=== PATIENT | female | born 1965 | race Hispanic/Latino ===

== ENCOUNTER 2016-05-24 18:56 | Emergency (ER) | payer SELFPAY ==
--- NOTE | 2016-05-24 23:38 | Emergency Department Report ---
HPI - General Chief Complaint: Extremity Problem,Nontraumatic Time Seen by Provider: 05/24/16 23:22 - HPI HPI: Physical history of female with a past medical history of diabetes on insulin, hypertension on medication hypothyroidism on thyroxine who presents to ED complaining of left wrist pain 2 weeks. Patient states about 2 weeks ago she felt a pain on her raised and thought it was carpeted, so she started wearing a brace. Patient states brace did not help brace made the pain worse or she is to get off. Patient describes pain as sharp tingling in nature that sometimes radiate up the intermediate arm. Patient states pain with opposing thumb. Patient denies fevers/chills/nausea/vomiting/recent trauma or fall or injury to the wrist. Patient ED Past Medical Hx - Past Medical History Previous Medical History?: Yes Hx Hypertension: Yes Hx Diabetes: Yes Hx GERD: Yes Additional medical history: Hypothyroidism. Diabetic Neuropathy - Surgical History Past Surgical History?: Yes Hx Cholecystectomy: Yes (1999) Additional Surgical History: Hysterectomy, tubes tied, hernia surgeries x 3 - Social History Smoking Status: Current Every Day Smoker Substance Use Type: None - Medications Home Medications: Home Medications Medication Instructions Recorded Confirmed Last Taken Type Ibuprofen [Motrin] 800 mg PO Q8HR PRN #30 tablet 05/25/16 Unknown Rx methOCARBAMOL [Robaxin TAB] 500 mg PO BID #20 tab 05/25/16 Unknown Rx traMADol [Ultram 50 MG tab] 50 mg PO Q6HR PRN #20 tablet 05/25/16 Unknown Rx ED Review of Systems ROS: Stated complaint: LFT WRIST PAIN Other details as noted in HPI Constitutional: denies: chills, fever Eyes: denies: eye pain, eye discharge, vision change ENT: denies: ear pain, throat pain Respiratory: denies: cough, shortness of breath, wheezing Cardiovascular: denies: chest pain, palpitations Endocrine: no symptoms reported Gastrointestinal: denies: abdominal pain, nausea, vomiting, diarrhea Genitourinary: denies: urgency, dysuria, frequency, hematuria, discharge Musculoskeletal: arthralgia. denies: back pain, joint swelling Skin: denies: rash, lesions Neurological: denies: headache, weakness, numbness, paresthesias, confusion Psychiatric: denies: anxiety, depression Hematological/Lymphatic: denies: easy bleeding, easy bruising Physical Exam - Physical Exam Vital Signs: Vital Signs 05/24/16 19:28 Temperature 98.6 F Pulse Rate 101 H Respiratory 20 Rate Blood Pressure 137/86 O2 Sat by Pulse 95 Oximetry Physical Exam: GENERAL: Alert and oriented x3, no apparent distress, Normal Gait, atraumatic. HEAD: Head is normocephalic and a-traumatic. EYES: Extra ocular muscles are intact. Pupils are equal, round, and reactive to light and accommodation. NECK: Supple. Non edematous, No carotid bruits. No lymphadenopathy or thyromegaly. No C-spine tenderness LUNGS: Symetrical with respiration, No wheezing, no rales or crackles, CTAB. HEART: S1, S2 present, regular rate and rhythm without murmur, no rubs, no gallops. ABDOMEN: No organomegaly was noted,Positive bowel sounds, soft, and non- distended. . Nontender to palpation on all Quadrants, NO CVA tenderness. EXTREMITIES/MUSCULOSKELETAL: No cyanosis, clubbing, rash, lesions or edema. Full ROM bilaterally. UE/LE Pulses 2+ bilaterally. LE and UE 5+ strength bilaterally, straight leg raise negative bilaterally. Pain with palpation of wrist joint. Patient had some pain with thumb opposition. No erythema, no noticeable swelling. Patient unable to perform Phalen test NEUROLOGIC: No focal Deficit, Cranial nerves II through XII are grossly intact. No loss of sensation, PSYCHIATRIC: Mood is congruent with affect, denies suicidal or homicidal ideations. SKIN: Warm and dry, No lesions, No ulceration or induration present. ED Course Vital Signs 05/24/16 19:28 Temperature 98.6 F Pulse Rate 101 H Respiratory 20 Rate Blood Pressure 137/86 O2 Sat by Pulse 95 Oximetry ED Medical Decision Making - Medical Decision Making 50 year-old female presents with wrist pain ED course: Patient received 50 mg. Ultrasound ordered. Ultrasound shows no acute process. Discussed the patient to follow up with primary care physician and specialists. Discussed need for further workup neurologist. Discussed the patient did need for follow-up. Discussed the symptoms are seen follow-up with primary care physician Discussed if worsening symptoms to return to ED. Vital signs are normal patient is in no acute respiratory distress. - Differential Diagnosis 1. Diabetic neuropathy 2. Carpal tunnel 3. Critical care attestation.: If time is entered above; I have spent that time in minutes in the direct care of this critically ill patient, excluding procedure time. ED Disposition Clinical Impression: Arthralgia of wrist, left Wrist pain Qualifiers: Laterality: left Qualified Code(s): M25.532 - Pain in left wrist Disposition: DISCHARGED TO HOME OR SELFCARE Is pt being admited?: No Does the pt Need Aspirin: No Condition: Stable Instructions: Wrist Injury (ED), Arthralgia (ED) Prescriptions: Ibuprofen [Motrin] 800 mg PO Q8HR PRN #30 tablet PRN Reason: Pain methOCARBAMOL [Robaxin TAB] 500 mg PO BID #20 tab traMADol [Ultram 50 MG tab] 50 mg PO Q6HR PRN #20 tablet PRN Reason: Pain Referrals: PRIMARY CARE, [Primary Care Provider] - 3-5 Days SIRISHA PEREZ MD [Staff Physician] - 3-5 Days VANCE PEREZ MD [Referring] - 3-5 Days ROGER INGRAM MD [Staff Physician] - 3-5 Days Forms: Accompanied Note, Work/School Release Form(ED) Time of Disposition: 03:52
[2016-05-25] MEDS ORDERED: ULTRAM PO ONE (00:17)
--- NOTE | 2016-05-25 02:53 | Ultrasound Report ---
FINAL REPORT PROCEDURE: ULTRA LEFT UPPER EXTREMITY NONVASCULAR LIMITED TECHNIQUE: Real-time sonography in multiple planes of the soft tissues of the left wrist was performed with image documentation. CPT 66982 HISTORY: Left wrist joint swelling and pain. Prior history of soft tissue cyst removed from the left wrist. COMPARISON: No prior studies are available for comparison. FINDINGS: Ultrasound imaging was performed in the area of clinical interest. There is no ultrasound evidence of a distinctly identifiable focal cystic or solid or focal soft tissue lesion in this area. IMPRESSION: 1. There is no ultrasound evidence of a distinctly identifiable soft tissue lesion in the area of clinical interest in the left wrist. 2. However it should be noted that ultrasound has limited sensitivity in detecting some soft tissue abnormalities. Therefore if there is continued concern for a soft tissue abnormality in the left wrist or unexplained symptoms, a dedicated soft tissue imaging study such as MRI and or CT scan would be recommended only if indicated.
[2016-05-25 04:06] VITALS: BP 132/78
== END 2016-05-25 04:06 | disposition home or self-care (01) ==
LOC: ED 18:56
DX: M25.532 Pain in left wrist (principal); E11.9 Type 2 diabetes mellitus without complications; I10 Essential (primary) hypertension; K21.9 Gastro-esophageal reflux disease without esophagitis; E11.40 Type 2 diabetes mellitus with diabetic neuropathy, unspecified; F17.200 Nicotine dependence, unspecified, uncomplicated; E03.9 Hypothyroidism, unspecified

== ENCOUNTER 2017-03-07 15:42 | Emergency (ER) | payer SELFPAY | END 2017-03-07 16:30 | disposition left against medical advice (07) | LOC: ED 15:42 | DX: K05.10 Chronic gingivitis, plaque induced (principal); Z53.21 Procedure and treatment not carried out due to patient leaving prior to being seen by health care provider ==

== ENCOUNTER 2019-01-17 10:42 | Emergency (ER) | payer MEDICAID ==
[2019-01-17 12:06] LABS: Basophils # (Auto) 0.1 K/mm3 (0.0-0.1); Eosinophils # (Auto) 0.3 K/mm3 (0.0-0.4); Eosinophils % (Auto) 5.4 % (0.0-4.3); Hematocrit 42.3 % (30.3-42.9); Hemoglobin 14.5 gm/dl (10.1-14.3); Lymphocytes # (Auto) 2.1 K/mm3 (1.2-5.4); Lymphocytes % (Auto) 37.3 % (13.4-35.0); Mean Corpuscular HGB Conc 34 % (30-34); Mean Corpuscular Volume 95 fl (79-97); Monocytes # (Auto) 0.4 K/mm3 (0.0-0.8); Monocytes % (Auto) 7.4 % (0.0-7.3); Platelet Count 123 K/mm3 (140-440); Red Blood Count 4.46 M/mm3 (3.65-5.03); Red Cell Distribution Width 13.5 % (13.2-15.2)
--- NOTE | 2019-01-17 12:20 | Emergency Department Report ---
ED General Adult HPI - General Chief complaint: Abdominal Pain Stated complaint: HYPERGLYCEMIA Time Seen by Provider: 01/17/19 11:24 Source: patient Mode of arrival: Ambulatory Limitations: No Limitations - History of Present Illness Initial comments: 53-year-old female with history of hypertension, diabetes, hypothyroidism, bipolar disorder, depression presents to ED with complaint of elevated glucose, generalized weakness, multiple falls. Patient reports her glucose has been ranging from 300s and 500s over the last week. She reports nausea, no vomiting. Patient states she has been feeling dizzy and states her "legs have been giving out" for the last couple of weeks. Questionable LOC with these episodes. Patient reports feeling dehydrated, states mouth is dry. Patient is on multiple medications for her multiple medical problems, and she does not have a list of her current medications. States she does not take lithium. Patient does not have a PCP, but states she does see a psychiatrist. However, patient denies being prescribed any new medications or having any of her medication dosages changed. She reports mild headache, reports feeling dizzy and lightheaded. She denies any chest pain, shortness of breath. -: week(s) (2) Consistency: intermittent Improves with: none Worsens with: none Associated Symptoms: headaches, nausea/vomiting, syncope, weakness. denies: chest pain, fever/chills, shortness of breath - Related Data Previous Rx's Medication Instructions Recorded Last Taken Type Ibuprofen [Motrin] 800 mg PO Q8HR PRN #30 tablet 05/25/16 Unknown Rx methOCARBAMOL [Robaxin TAB] 500 mg PO BID #20 tab 05/25/16 Unknown Rx traMADoL [Ultram 50 MG tab] 50 mg PO Q6HR PRN #20 tablet 05/25/16 Unknown Rx Allergies Allergy/AdvReac Type Severity Reaction Status Date / Time No Known Allergies Allergy Verified 11/01/15 23:55 ED Review of Systems ROS: Stated complaint: HYPERGLYCEMIA Other details as noted in HPI Comment: All other systems reviewed and negative Constitutional: weakness (generalized). denies: chills, fever Respiratory: denies: cough, shortness of breath Cardiovascular: syncope (questionable). denies: chest pain Endocrine: increased thirst Gastrointestinal: abdominal pain, nausea. denies: vomiting, diarrhea Genitourinary: frequency Neurological: headache, vertigo. denies: numbness, paresthesias ED Past Medical Hx - Past Medical History Previous Medical History?: Yes Hx Hypertension: Yes Hx Diabetes: Yes Hx GERD: Yes Hx Psychiatric Treatment: Yes (depression, bipolar) Additional medical history: Hypothyroidism. Diabetic Neuropathy - Surgical History Past Surgical History?: Yes Hx Cholecystectomy: Yes (1999) Additional Surgical History: Hysterectomy, tubes tied, hernia surgeries x 3 - Social History Smoking Status: Current Every Day Smoker Substance Use Type: None - Medications Home Medications: Home Medications Medication Instructions Recorded Confirmed Last Taken Type Ibuprofen [Motrin] 800 mg PO Q8HR PRN #30 tablet 05/25/16 Unknown Rx methOCARBAMOL [Robaxin TAB] 500 mg PO BID #20 tab 05/25/16 Unknown Rx traMADoL [Ultram 50 MG tab] 50 mg PO Q6HR PRN #20 tablet 05/25/16 Unknown Rx ED Physical Exam - General Limitations: No Limitations General appearance: alert, in no apparent distress - Head Head exam: Present: atraumatic, normocephalic - Eye Eye exam: Present: normal appearance, EOMI - ENT ENT exam: Present: mucous membranes dry - Neck Neck exam: Present: normal inspection - Respiratory Respiratory exam: Present: normal lung sounds bilaterally. Absent: respiratory distress - Cardiovascular Cardiovascular Exam: Present: regular rate, normal rhythm - GI/Abdominal GI/Abdominal exam: Present: soft. Absent: distended, tenderness - Extremities Exam Extremities exam: Present: normal inspection - Neurological Exam Neurological exam: Present: alert, oriented X3, CN II-XII intact, motor sensory deficit (4/5 strength BLE), other ([id number] testing normal) - Psychiatric Psychiatric exam: Present: normal affect, normal mood - Skin Skin exam: Present: warm, dry, intact, normal color ED Course Vital Signs 01/17/19 01/17/19 01/17/19 10:50 12:58 14:27 Temperature 97.4 F L 98.0 F Pulse Rate 87 88 Respiratory 18 18 16 Rate Blood Pressure 142/82 Blood Pressure 140/84 [Left] O2 Sat by Pulse 95 97 Oximetry ED Medical Decision Making - Lab Data Result diagrams: 01/17/19 11:49 01/17/19 11:49 - EKG Data -: EKG Interpreted by [place] EKG shows normal: sinus rhythm, axis, intervals, QRS complexes, ST-T waves Rate: normal - EKG Data Interpretation: no acute changes, nonspecific ST-T wave deyvi, other (LAD) - Radiology Data Radiology results: report reviewed, image reviewed - Medical Decision Making - vitals normal, patient is not orthostatic - glucose slightly elevated, not in DKA, renal function is normal - clinically, pt appears dehydrated, oral mucosa is dry, IV fluids given - CT Head done to rule out any intracranial etiolgy of pt's falls or any intracranial injury due to her multiple falls; CT Head is negative; it is unclear what is causing the patient's dizziness - UA shows 1+ bacteria, pt reports she is currently taking an antibiotic for it after being seen at [facility] recently and was diagnosed with UTI - Patient does not require admission at this time; outpatient follow-up advised; return precautions given - Differential Diagnosis intracranial injury, DKA, infection, dehydration Critical care attestation.: If time is entered above; I have spent that time in minutes in the direct care of this critically ill patient, excluding procedure time. ED Disposition Clinical Impression: Dehydration, Multiple falls, Hyperglycemia Disposition: - TO HOME OR SELFCARE Is pt being admited?: No Condition: Stable Instructions: Weakness (ED), Diabetic Hyperglycemia (ED) Referrals: PRIMARY CAREMD [Primary Care Provider] - 3-5 Days MELITON BOOTH MD [Staff Physician] - 3-5 Days ANGELITA ALFORD MD [Staff Physician] - 3-5 Days [facility] [Provider Group] - 3-5 Days Time of Disposition: 14:15
[2019-01-17 12:31] LABS: BUN/Creatinine Ratio 32; Blood Urea Nitrogen 16 mg/dL (7-17); Calcium 9.1 mg/dL (8.4-10.2); Hemolysis Index 19
[2019-01-17] MEDS ORDERED: SODIUM CHLORIDE 0.9% 1000 ML 1,000 ML IV ONE (12:32)
--- NOTE | 2019-01-17 12:57 | Cat Scan Report ---
CT head/brain wo con INDICATION / CLINICAL INFORMATION: 53 years Female; dizziness, mult falls. TECHNIQUE: Routine CT head without contrast. All CT scans at this location are performed using CT dos e reduction for ALARA by means of automated exposure control. COMPARISON: None. FINDINGS: BRAIN / INTRACRANIAL CONTENTS: Small lacunar infarct is seen near the head of the left caudate-this a ppears to be chronic in age. No acute hemorrhage, mass effect, midline shift, hydrocephalus, or acute , large territorial infarct. No chronic infarct or atrophy appreciated. No significant white matter a bnormality. CRANIOCERVICAL JUNCTION: No significant abnormality. ORBITS: No significant abnormality of visualized orbits. SINUSES / MASTOIDS: Mucous retention cyst/polyp seen in the right maxillary antrum. ADDITIONAL FINDINGS: Mild temporomandibular joint disease suggested on the left. Atherosclerotic disease is seen in the anterior and posterior circulation. IMPRESSION: 1. No focal mass, hemorrhage, hydrocephalus, or acute, large territorial infarct. Signer Name: Geroge Dick MD, III Signed: 01/17/2019 12:52 PM Workstation Name: [id number]
[2019-01-17 14:01] LABS: Bacteria,Urine 1+ /HPF (Negative); Bilirubin,Urine NEG (Negative); Blood,Urine NEG (Negative); Color,Urine Yellow (Yellow); Mucus,Urine FEW /HPF; Urobilinogen,Urine < 2.0 mg/dL (<2.0)
[2019-01-17 14:28] VITALS: BP 140/84
== END 2019-01-17 14:28 | disposition home or self-care (01) ==
LOC: ED 10:42
DX: E86.0 Dehydration (principal); R29.6 Repeated falls; I10 Essential (primary) hypertension; E11.65 Type 2 diabetes mellitus with hyperglycemia; K21.9 Gastro-esophageal reflux disease without esophagitis; F31.9 Bipolar disorder, unspecified; F17.200 Nicotine dependence, unspecified, uncomplicated; Z98.890 Other specified postprocedural states; Z79.1 Long term (current) use of non-steroidal anti-inflammatories (NSAID); Z79.899 Other long term (current) drug therapy
CPT/HCPCS: 36415; 70450; 80048; 81001; 82962; 85025; 93005; 93010; 96360; 99284; J7030

== ENCOUNTER 2020-04-20 14:39 | Emergency (ER) | payer MEDICAID, MEDICARE ==
--- NOTE | 2020-04-20 15:39 | Emergency Department Report ---
HPI - HPI HPI: This is a 54-year-old female who presents to the emergency department with complaint of a suicide attempt by cutting her left wrist that occurred late last night/early this morning. The patient does present with a moderate sized superficial laceration and 3 abrasions to the volar left wrist. The patient does admit to depression and recurrent suicidal ideations. She went over to [place] and attempt to get admitted there as the patient says that she has been to [facility] multiple times in the past, however she was told that there were no beds available. She also has a past medical history of insulin- dependent diabetes, GERD, hypertension, hypothyroidism. The patient has a history of depression and bipolar disorder for which she takes multiple medications but cannot currently remember the name. She denies any alcohol or illicit drug use. <BELTRAN WHITE - Last Filed: 04/20/20 19:33> <MICHAEL MAYA - Last Filed: 04/20/20 22:47> - General Chief Complaint: Psych Time Seen by Provider: 04/20/20 15:27 ED Past Medical Hx - Past Medical History Previous Medical History?: Yes Hx Hypertension: Yes Hx Diabetes: Yes Hx GERD: Yes Hx Psychiatric Treatment: Yes (depression, bipolar) Additional medical history: Hypothyroidism. Diabetic Neuropathy - Surgical History Past Surgical History?: Yes Hx Cholecystectomy: Yes (1999) Additional Surgical History: Hysterectomy, tubes tied, hernia surgeries x 3 - Social History Smoking Status: Current Every Day Smoker Substance Use Type: None <BELTRAN WHITE - Last Filed: 04/20/20 19:33> <MICHAEL MAYA - Last Filed: 04/20/20 22:47> - Medications Home Medications: Home Medications Medication Instructions Recorded Confirmed Last Taken Type Ibuprofen [Motrin] 800 mg PO Q8HR PRN #30 tablet 05/25/16 Unknown Rx methOCARBAMOL [Robaxin TAB] 500 mg PO BID #20 tab 05/25/16 Unknown Rx traMADoL [Ultram 50 MG tab] 50 mg PO Q6HR PRN #20 tablet 05/25/16 Unknown Rx ED Review of Systems ROS: Stated complaint: LEFT WRIST LACERATION Other details as noted in HPI Comment: All other systems reviewed and negative Constitutional: denies: chills, fever Eyes: denies: eye pain, vision change ENT: denies: ear pain, throat pain Respiratory: denies: cough, shortness of breath Cardiovascular: denies: chest pain, palpitations Gastrointestinal: denies: abdominal pain, vomiting Genitourinary: denies: dysuria, discharge Musculoskeletal: denies: back pain, arthralgia Skin: other (left wrist laceration / abrasion). denies: rash Neurological: denies: numbness, paresthesias Psychiatric: depression, suicidal thoughts. denies: homicidal thoughts <BELTRAN WHITE - Last Filed: 04/20/20 19:33> ROS: Stated complaint: LEFT WRIST LACERATION Other details as noted in HPI <MICHAEL MAYA - Last Filed: 04/20/20 22:47> Physical Exam - Physical Exam Vital Signs: Vital Signs 04/20/20 15:09 Temperature 98.3 F Pulse Rate 110 H Respiratory 16 Rate Blood Pressure 135/69 O2 Sat by Pulse 97 Oximetry Physical Exam: GENERAL: The patient is well-developed well-nourished. HENT: Normocephalic. Atraumatic. Patient has moist mucous membranes. EYES: Extraocular motions are intact. NECK: Supple. Trachea is midline. CHEST/LUNGS: Clear to auscultation. There is no respiratory distress noted. HEART/CARDIOVASCULAR: Regular. There is no tachycardia. There is no murmur. ABDOMEN: Abdomen is soft, nontender. Patient has normal bowel sounds. SKIN: Skin is warm and dry. There is a superficial laceration, that seems more like a skin avulsion, to the volar left wrist. There are also small abrasions proximal to this. NEURO: The patient is awake, alert, and oriented. The patient is cooperative. The patient has no focal neurologic deficits. Normal speech. MUSCULOSKELETAL: There is no tenderness or deformity. There is no limitation range of motion. <BELTRAN WHITE - Last Filed: 04/20/20 19:33> - Physical Exam Vital Signs: Vital Signs 04/20/20 04/20/20 04/20/20 15:09 16:16 20:49 Temperature 98.3 F 97.9 F Pulse Rate 110 H 77 Respiratory 16 18 16 Rate Blood Pressure 135/69 Blood Pressure 131/49 [Right] O2 Sat by Pulse 97 99 99 Oximetry <MICHAEL MAYA - Last Filed: 04/20/20 22:47> ED Course Vital Signs 04/20/20 15:09 Temperature 98.3 F Pulse Rate 110 H Respiratory 16 Rate Blood Pressure 135/69 O2 Sat by Pulse 97 Oximetry <BELTRAN WHITE - Last Filed: 04/20/20 19:33> Vital Signs 04/20/20 04/20/20 04/20/20 15:09 16:16 20:49 Temperature 98.3 F 97.9 F Pulse Rate 110 H 77 Respiratory 16 18 16 Rate Blood Pressure 135/69 Blood Pressure 131/49 [Right] O2 Sat by Pulse 97 99 99 Oximetry <MICHAEL MAYA - Last Filed: 04/20/20 22:47> ED Medical Decision Making - Lab Data Result diagrams: 04/20/20 15:35 04/20/20 15:35 Lab Results 04/20/20 04/20/20 04/20/20 Range/Units 15:35 15:35 15:35 WBC (4.5-11.0) K/mm3 RBC (3.65-5.03) M/mm3 Hgb (10.1-14.3) gm/dl Hct (30.3-42.9) % MCV (79-97) fl MCH (28-32) pg MCHC (30-34) % RDW (13.2-15.2) % Plt Count (140-440) K/mm3 Lymph % (Auto) (13.4-35.0) % Towns % (Auto) (0.0-7.3) % Eos % (Auto) (0.0-4.3) % Baso % (Auto) (0.0-1.8) % Lymph # (Auto) (1.2-5.4) K/mm3 Towns # (Auto) (0.0-0.8) K/mm3 Eos # (Auto) (0.0-0.4) K/mm3 Baso # (Auto) (0.0-0.1) K/mm3 Seg Neutrophils % (40.0-70.0) % Seg Neutrophils # (1.8-7.7) K/mm3 Sodium 133 L (137-145) mmol/L Potassium 4.2 (3.6-5.0) mmol/L Chloride 94.7 L (98-107) mmol/L Carbon Dioxide 24 (22-30) mmol/L Anion Gap 19 mmol/L BUN 19 H (7-17) mg/dL Creatinine 0.7 (0.6-1.2) mg/dL Estimated GFR > 60 ml/min BUN/Creatinine Ratio 27 % Glucose 550 H* (65-100) mg/dL Calcium 9.3 (8.4-10.2) mg/dL Urine Color (Yellow) Urine Turbidity (Clear) Urine pH (5.0-7.0) Ur Specific [place] (1.003-1.030) Urine Protein (Negative) mg/dL Urine Glucose (UA) (Negative) mg/dL Urine Ketones (Negative) mg/dL Urine Blood (Negative) Urine Nitrite (Negative) Urine Bilirubin (Negative) Urine Urobilinogen (<2.0) mg/dL Ur Leukocyte Esterase (Negative) Urine WBC (Auto) (0.0-6.0) /HPF Urine RBC (Auto) (0.0-6.0) /HPF U Epithel Cells (Auto) (0-13.0) /HPF Salicylates < 0.3 L (2.8-20.0) mg/dL Urine Opiates Screen Urine Methadone Screen Acetaminophen 5.0 L (10.0-30.0) ug/mL Ur Barbiturates Screen Ur Phencyclidine Scrn Ur Amphetamines Screen U Benzodiazepines Scrn Urine Cocaine Screen U Marijuana (THC) Screen Drugs of Abuse Note Plasma/Serum Alcohol (0-0.07) % 04/20/20 04/20/20 04/20/20 Range/Units 15:35 15:35 16:12 WBC 9.9 (4.5-11.0) K/mm3 RBC 5.09 H (3.65-5.03) M/mm3 Hgb 16.0 H (10.1-14.3) gm/dl Hct 45.9 H (30.3-42.9) % MCV 90 (79-97) fl MCH 31 (28-32) pg MCHC 35 H (30-34) % RDW 15.7 H (13.2-15.2) % Plt Count 228 (140-440) K/mm3 Lymph % (Auto) 28.3 (13.4-35.0) % Towns % (Auto) 5.8 (0.0-7.3) % Eos % (Auto) 8.8 H (0.0-4.3) % Baso % (Auto) 1.7 (0.0-1.8) % Lymph # (Auto) 2.8 (1.2-5.4) K/mm3 Towns # (Auto) 0.6 (0.0-0.8) K/mm3 Eos # (Auto) 0.9 H (0.0-0.4) K/mm3 Baso # (Auto) 0.2 H (0.0-0.1) K/mm3 Seg Neutrophils % 55.4 (40.0-70.0) % Seg Neutrophils # 5.5 (1.8-7.7) K/mm3 Sodium (137-145) mmol/L Potassium (3.6-5.0) mmol/L Chloride (98-107) mmol/L Carbon Dioxide (22-30) mmol/L Anion Gap mmol/L BUN (7-17) mg/dL Creatinine (0.6-1.2) mg/dL Estimated GFR ml/min BUN/Creatinine Ratio % Glucose (65-100) mg/dL Calcium (8.4-10.2) mg/dL Urine Color Yellow (Yellow) Urine Turbidity Clear (Clear) Urine pH 5.0 (5.0-7.0) Ur Specific [place] 1.030 (1.003-1.030) Urine Protein <15 mg/dl (Negative) mg/dL Urine Glucose (UA) >=500 (Negative) mg/dL Urine Ketones 20 (Negative) mg/dL Urine Blood Neg (Negative) Urine Nitrite Neg (Negative) Urine Bilirubin Neg (Negative) Urine Urobilinogen < 2.0 (<2.0) mg/dL Ur Leukocyte Esterase Neg (Negative) Urine WBC (Auto) < 1.0 (0.0-6.0) /HPF Urine RBC (Auto) 2.0 (0.0-6.0) /HPF U Epithel Cells (Auto) < 1.0 (0-13.0) /HPF Salicylates (2.8-20.0) mg/dL Urine Opiates Screen Urine Methadone Screen Acetaminophen (10.0-30.0) ug/mL Ur Barbiturates Screen Ur Phencyclidine Scrn Ur Amphetamines Screen U Benzodiazepines Scrn Urine Cocaine Screen U Marijuana (THC) Screen Drugs of Abuse Note Plasma/Serum Alcohol < 0.01 (0-0.07) % 04/20/20 Range/Units 16:12 WBC (4.5-11.0) K/mm3 RBC (3.65-5.03) M/mm3 Hgb (10.1-14.3) gm/dl Hct (30.3-42.9) % MCV (79-97) fl MCH (28-32) pg MCHC (30-34) % RDW (13.2-15.2) % Plt Count (140-440) K/mm3 Lymph % (Auto) (13.4-35.0) % Towns % (Auto) (0.0-7.3) % Eos % (Auto) (0.0-4.3) % Baso % (Auto) (0.0-1.8) % Lymph # (Auto) (1.2-5.4) K/mm3 Towns # (Auto) (0.0-0.8) K/mm3 Eos # (Auto) (0.0-0.4) K/mm3 Baso # (Auto) (0.0-0.1) K/mm3 Seg Neutrophils % (40.0-70.0) % Seg Neutrophils # (1.8-7.7) K/mm3 Sodium (137-145) mmol/L Potassium (3.6-5.0) mmol/L Chloride (98-107) mmol/L Carbon Dioxide (22-30) mmol/L Anion Gap mmol/L BUN (7-17) mg/dL Creatinine (0.6-1.2) mg/dL Estimated GFR ml/min BUN/Creatinine Ratio % Glucose (65-100) mg/dL Calcium (8.4-10.2) mg/dL Urine Color (Yellow) Urine Turbidity (Clear) Urine pH (5.0-7.0) Ur Specific [place] (1.003-1.030) Urine Protein (Negative) mg/dL Urine Glucose (UA) (Negative) mg/dL Urine Ketones (Negative) mg/dL Urine Blood (Negative) Urine Nitrite (Negative) Urine Bilirubin (Negative) Urine Urobilinogen (<2.0) mg/dL Ur Leukocyte Esterase (Negative) Urine WBC (Auto) (0.0-6.0) /HPF Urine RBC (Auto) (0.0-6.0) /HPF U Epithel Cells (Auto) (0-13.0) /HPF Salicylates (2.8-20.0) mg/dL Urine Opiates Screen Negative Urine Methadone Screen Negative Acetaminophen (10.0-30.0) ug/mL Ur Barbiturates Screen Negative Ur Phencyclidine Scrn Negative Ur Amphetamines Screen Negative U Benzodiazepines Scrn Negative Urine Cocaine Screen Negative U Marijuana (THC) Screen Negative Drugs of Abuse Note Disclamer Plasma/Serum Alcohol (0-0.07) % - Medical Decision Making This patient presents to the emergency department with suicidal ideations and an attempt in which she cut her left wrist. She has a superficial laceration and multiple small abrasions. Nothing that needs sutures. She has been made a 1013 and ED hold. The patient's labs have been mostly unremarkable except for hyperglycemia with a blood sugar of about 550. There is no significant elevation in her anion gap and therefore she does not appear to be in diabetic ketoacidosis. An IV has been placed and the patient has received IV fluid resuscitation and IV insulin. 1 hour later the blood sugar was down to about 340 on Accu-Chek. She has been given another bolus of IV fluids and another round of IV insulin. Her vital signs have been reassuring throughout her ED course thus far including being afebrile. After the second bolus of IV fluid and dose of insulin, I suspect the patient's blood sugar will be down in the 200s. At this point I would consider the patient to be medically cleared for psychiatric placement. <BELTRAN WHITE - Last Filed: 04/20/20 19:33> - Lab Data Result diagrams: 04/20/20 15:35 04/20/20 15:35 - Medical Decision Making I was asked by treatment nurse to manage hyperglycemia. Patient has been accepted to psychiatric facility in [facility]. I have ordered additional IV fluid as well as third insulin bolus. I also have ordered scheduled Accu- Cheks. I have ordered carbohydrate controlled diet. Patient will be transferred in the morning once blood glucose is less than 250. <MICHAEL MAYA - Last Filed: 04/20/20 22:47> Critical Care Time: No Critical care attestation.: If time is entered above; I have spent that time in minutes in the direct care of this critically ill patient, excluding procedure time. <BELTRAN WHITE - Last Filed: 04/20/20 19:33> Critical care attestation.: If time is entered above; I have spent that time in minutes in the direct care of this critically ill patient, excluding procedure time. <MICHAEL MAYA - Last Filed: 04/20/20 22:47> ED Disposition Is pt being admited?: No Time of Disposition: 19:37 <BELTRAN WHITE - Last Filed: 04/20/20 19:33> Is pt being admited?: No Does the pt Need Aspirin: No <MICHAEL MAYA - Last Filed: 04/20/20 22:47> Clinical Impression: Suicide attempt, Self-inflicted laceration of left wrist, Hyperglycemia Disposition: DC/TX-65 PSY HOSP/PSY UNIT Condition: Stable Referrals: HARSHA SANCHEZ [Primary Care Provider] - 3-5 Days
[2020-04-20 15:50] LABS: Basophils # (Auto) 0.2 K/mm3 (0.0-0.1); Basophils % (Auto) 1.7 % (0.0-1.8); Eosinophils # (Auto) 0.9 K/mm3 (0.0-0.4); Eosinophils % (Auto) 8.8 % (0.0-4.3); Hematocrit 45.9 % (30.3-42.9); Lymphocytes # (Auto) 2.8 K/mm3 (1.2-5.4); Lymphocytes % (Auto) 28.3 % (13.4-35.0); Mean Corpuscular HGB Conc 35 % (30-34); Mean Corpuscular Volume 90 fl (79-97); Monocytes # (Auto) 0.6 K/mm3 (0.0-0.8); Monocytes % (Auto) 5.8 % (0.0-7.3); Platelet Count 228 K/mm3 (140-440); Red Blood Count 5.09 M/mm3 (3.65-5.03); Red Cell Distribution Width 15.7 % (13.2-15.2)
[2020-04-20 16:06] LABS: Blood Urea Nitrogen 19 mg/dL (7-17); Calcium 9.3 mg/dL (8.4-10.2); Hemolysis Index 15
[2020-04-20 16:07] LABS: BUN/Creatinine Ratio 27
[2020-04-20] MEDS ORDERED: SODIUM CHLORIDE 0.9% 1000 ML 1,000 ML IV ONE ×2 (16:12→22:03)
[2020-04-20] MEDS ORDERED: INSULIN REGULAR, HUMAN 100 UNITS/1 ML IV ONE ×3 (16:12→22:03)
[2020-04-20 16:36] LABS: Bilirubin,Urine NEG (Negative); Blood,Urine NEG (Negative); Color,Urine Yellow (Yellow); Protein,Urine <15 mg/dL mg/dL (Negative); Urobilinogen,Urine < 2.0 mg/dL (<2.0); WBC,Urine < 1.0 /HPF (0.0-6.0)
[2020-04-20 16:43] LABS: Amphetamine Screen,Urine Negative; Benzodiazepines Screen,Urine Negative; Cannabinoid Screen,Urine Negative; Cocaine Screen,Urine Negative; Methadone Screen,Urine Negative; Opiate Screen,Urine Negative
[2020-04-20] MEDS: SODIUM CHLORIDE 0.9% 500 ML 500 ML IV ONE ×2 (19:37→20:27)
[2020-04-20] MEDS ORDERED: DEXTROSE 50% IN WATER (25GM) 50 ML SYRINGE IV PRN (22:51)
[2020-04-21] MEDS: metFORMIN 500 MG TAB PO SCH ×2 (08:19→09:42)
[2020-04-21] MEDS: INSULIN NPH/REGULAR 70/30 INJ SUB-Q SCH ×2 (08:19→17:26)
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
[2020-04-21 10:34] VITALS: BP 131/71
[2020-04-21] MEDS ORDERED: SODIUM CHLORIDE 0.9% 1000 ML 1,000 ML IV ONE (15:17)
--- NOTE | 2020-04-21 17:41 | Emergency Department Report ---
ED General Adult HPI - General Chief complaint: Psych Stated complaint: LEFT WRIST LACERATION Time Seen by Provider: 04/20/20 15:27 Source: patient Mode of arrival: Ambulatory Limitations: No Limitations - History of Present Illness Initial comments: Patient currently on floor 5 as ER patient being evaluated by psychiatry waiting for psychiatry clearance. Psychiatric screener Dr. Little contact ER, case discussed at length, states patient is cleared from psychiatry to go home after discussion with Dr. Gonzalez who agrees with disposition. States patient is not at risk to herself, states patient is unequivocally not suicidal. Patient evaluated by me on fifth floor, denies suicidality, states she gave herself superficial wound to her wrist after an argument with her son secondary to frustration without intention of killing herself nor with the intent of causing significant self-harm. Patient states her parents live at home with her and she has sufficient support group as well as outpatient psychiatric follow-up. Patient repeatedly denies suicidal or homicidal thoughts. Severity scale (0 -10): 0 - Related Data Previous Rx's Medication Instructions Recorded Last Taken Type Ibuprofen [Motrin] 800 mg PO Q8HR PRN #30 tablet 05/25/16 Unknown Rx methOCARBAMOL [Robaxin TAB] 500 mg PO BID #20 tab 05/25/16 Unknown Rx traMADoL [Ultram 50 MG tab] 50 mg PO Q6HR PRN #20 tablet 05/25/16 Unknown Rx Allergies Allergy/AdvReac Type Severity Reaction Status Date / Time No Known Allergies Allergy Verified 11/01/15 23:55 ED Review of Systems ROS: Stated complaint: LEFT WRIST LACERATION Other details as noted in HPI Constitutional: denies: chills, fever Eyes: denies: eye pain, vision change ENT: denies: ear pain, throat pain Respiratory: denies: cough, shortness of breath Cardiovascular: denies: chest pain, palpitations Gastrointestinal: denies: abdominal pain, vomiting Genitourinary: denies: dysuria, discharge Musculoskeletal: denies: back pain, arthralgia Skin: other (left wrist laceration / abrasion). denies: rash Neurological: denies: numbness, paresthesias Psychiatric: depression, suicidal thoughts. denies: homicidal thoughts ED Past Medical Hx - Past Medical History Previous Medical History?: Yes Hx Hypertension: Yes Hx Diabetes: Yes Hx GERD: Yes Hx Psychiatric Treatment: Yes (depression, bipolar) Additional medical history: Hypothyroidism. Diabetic Neuropathy - Surgical History Past Surgical History?: Yes Hx Cholecystectomy: Yes (1999) Additional Surgical History: Hysterectomy, tubes tied, hernia surgeries x 3 - Social History Smoking Status: Current Every Day Smoker Substance Use Type: None - Medications Home Medications: Home Medications Medication Instructions Recorded Confirmed Last Taken Type Ibuprofen [Motrin] 800 mg PO Q8HR PRN #30 tablet 05/25/16 Unknown Rx methOCARBAMOL [Robaxin TAB] 500 mg PO BID #20 tab 05/25/16 Unknown Rx traMADoL [Ultram 50 MG tab] 50 mg PO Q6HR PRN #20 tablet 05/25/16 Unknown Rx ED Physical Exam - General Limitations: No Limitations ED Course Vital Signs 04/20/20 04/20/20 04/20/20 15:09 16:16 20:49 Temperature 98.3 F 97.9 F Pulse Rate 110 H 77 Respiratory 16 18 16 Rate Blood Pressure 135/69 Blood Pressure 131/49 [Right] O2 Sat by Pulse 97 99 99 Oximetry 04/21/20 04/21/20 02:34 10:32 Temperature 98.0 F 97.4 F L Pulse Rate 79 94 H Respiratory 18 17 Rate Blood Pressure Blood Pressure 131/54 131/71 [Right] O2 Sat by Pulse 96 99 Oximetry - Reevaluation(s) Reevaluation #1: 04/21/20 17:40 Patient is hyperglycemic on initial evaluation, given IV normal saline 1 L x 1 with repeat blood glucose under 300. Patient states she has prescriptions for all hypoglycemic medications at home, denies offered refill. ED Medical Decision Making - Lab Data Result diagrams: 04/20/20 15:35 04/20/20 15:35 Critical care attestation.: If time is entered above; I have spent that time in minutes in the direct care of this critically ill patient, excluding procedure time. ED Disposition Clinical Impression: Depressive disorder Disposition: DC-01 TO HOME OR SELFCARE Is pt being admited?: No Condition: Stable Additional Instructions: Professional and Agency Contacts To help [facility](06/09) [place] Crisis Line: Suicide Prevention Line: Crisis Text Line: Text START to 930302 Emergency: 911 Outpatient COMMUNITY Behavioral Health Resources: ASTRIDB: [facility] [address] [place] [address] ANTONY: [facility] - [facility] [address] [place] [address] KAYLA: [facility] - [address] [place] [address] Tuesday thru Tuesday - 8am - 5pm VINOD: [facility] Address: [address], [place] [address] LUJAN: [facility] Address: [address] [place] [address] Tuesday thru Tuesday- 7am-2pm [facility] Address: [address] [place] [address] Tuesday thru Tuesday: 8:30AM-5PM Referrals: HARSHA SANCHEZ [Primary Care Provider] - 3-5 Days
== END 2020-04-21 17:34 | disposition home or self-care (01) ==
LOC: ED 14:39
DX: F32.9 Major depressive disorder, single episode, unspecified (principal); I10 Essential (primary) hypertension; E11.9 Type 2 diabetes mellitus without complications; K21.9 Gastro-esophageal reflux disease without esophagitis; F17.200 Nicotine dependence, unspecified, uncomplicated; Z90.49 Acquired absence of other specified parts of digestive tract; Z90.710 Acquired absence of both cervix and uterus; Z98.890 Other specified postprocedural states; Z79.1 Long term (current) use of non-steroidal anti-inflammatories (NSAID); Z79.899 Other long term (current) drug therapy
CPT/HCPCS: 36415; 80048; 80307; 81001; 82962; 85025; 96361; 96374; 96376; 99285; J7030; J7040; 80320; G0480; J1815

== ENCOUNTER 2020-08-26 17:57 | Emergency (ER) | payer MEDICARE ==
[2020-08-26 19:20] VITALS: BP 115/59
--- NOTE | 2020-08-26 19:29 | Emergency Department Report ---
Chief Complaint: Upper Respiratory Infection Stated Complaint: EXPOSED TO COVID Time Seen by Provider: 08/26/20 19:21 - HPI History of Present Illness: Patient is a 54-year-old female presents emergency room with complaints of exposure to COVID-19. She states her son tested positive for COVID-19 today. She states that she has had an occasional mild dry cough and some fatigue. She denies any fever, shortness of breath, chest pain, abdominal pain, nausea, vomiting, diarrhea. PMHx GERD, DM, HTN, depression, bipolar, hypothyroid. No allergies to medications. She is a smoker. Vitals are normal on exam: Non toxic appearing, no acute distress atraumatic, normocephalic normal appearance of the eyes, PERRL, EOMI, no periorbital edema or ecchymosis moist mucus membranes regular heart rate and rhythm, no gallops, no rubs, no murmurs breath sounds are clear bilaterally, no w/r/r, no respiratory distress, no accessory muscle use, no stridor A&O x4, no focal neuro deficit skin is warm, dry, intact Patient is presenting due to exposure to COVID-19 she is experiencing mild symptoms at this time such as dry cough and fatigue no SOB, no fever, no CP, no n/v/d vitals are normal, no hypoxia advised pt Please increase your fluid intake over the next several days. May take Tylenol as needed for fever or body aches. May take ktjt-[id number] cold symptom relief medication such as Mucinex or TheraFlu. Follow-up with a primary care doctor for reexamination. Return to emergency room immediately for any new or worsening symptoms including but not limited to difficulty breathing, shortness of breath, severe chest pain, unable to tolerate by mouth intake, etc. Please self quarantine for 2 weeks from the onset of your symptoms. Please do not go out in public. If you are around others at home please wear a mask. If you need to cough or sneeze please do so in a napkin and immediately throw it away and immediately wash your hands. Wash your hands frequently. Wipe everything down. Recommend for you to get COVID-19 testing, may have this done at primary care doctor, health department, [facility], etc. Recommend for you to get a pulse oximetry meter [id number], if your oxygen saturation is below 93%, please return to emergency room. medical screening exam performed and there is no threat to life or limb at this time - Exam Vital Signs: Vital Signs 08/26/20 19:13 Temperature 98.5 F Pulse Rate 89 Respiratory 16 Rate Blood Pressure 115/59 O2 Sat by Pulse 96 Oximetry MSE screening note: Focused history and physical exam performed. Due to findings the following was ordered: ED Disposition for MSE Clinical Impression: Exposure to COVID-19 virus Disposition: - TO HOME OR SELFCARE Is pt being admited?: No Does the pt Need Aspirin: No Condition: Stable Instructions: COVID-19 Frequently Asked Questions, COVID-19, Prevent the Spread of COVID-19 if You Are Sick - [facility] Additional Instructions: Please increase your fluid intake over the next several days. May take Tylenol as needed for fever or body aches. May take aqzb-hsr-puurznn cold symptom relief medication such as Mucinex or TheraFlu. Follow-up with a primary care doctor for reexamination. Return to emergency room immediately for any new or worsening symptoms including but not limited to difficulty breathing, shortness of breath, severe chest pain, unable to tolerate by mouth intake, etc. Please self quarantine for 2 weeks from the onset of your symptoms. Please do not go out in public. If you are around others at home please wear a mask. If you need to cough or sneeze please do so in a napkin and immediately throw it away and immediately wash your hands. Wash your hands frequently. Wipe everything down. Recommend for you to get COVID-19 testing, may have this done at primary care doctor, health department, [facility], etc. Recommend for you to get a pulse oximetry meter [id number], if your oxygen saturation is below 93%, please return to emergency room. Referrals: [facility] [Provider Group] - 2-3 Days MELITON BOOTH MD [Staff Physician] - 2-3 Days Time of Disposition: 19:28 Print Language: THAI
== END 2020-08-26 19:43 | disposition home or self-care (01) ==
LOC: ED 17:57
DX: R05 Cough (principal); Z20.822 Contact with and (suspected) exposure to COVID-19; R53.83 Other fatigue
CPT/HCPCS: 99282

== ENCOUNTER 2020-09-03 21:55 | Emergency (ER) | payer MEDICARE ==
[2020-09-03 22:02] VITALS: BP 116/74
== END 2020-09-04 09:49 | disposition left against medical advice (07) ==
LOC: ED 21:55
DX: R53.1 Weakness (principal); Z53.21 Procedure and treatment not carried out due to patient leaving prior to being seen by health care provider

== ENCOUNTER 2020-09-10 21:20 | Emergency (ER) | payer MEDICARE ==
[2020-09-10] MEDS ORDERED: ASPIRIN 325 MG TAB PO ONE (22:01)
--- NOTE | 2020-09-10 22:03 | Emergency Department Report ---
ED Chest Pain HPI - General Chief Complaint: Chest Pain Stated Complaint: POSS UTI PUI?: No Time Seen by Provider: 09/10/20 21:40 Source: patient, RN/MD, EMS Mode of arrival: Stretcher Limitations: No Limitations - History of Present Illness Initial Comments: Patient is a 54-year-old female who presents emergency room with complaints of lower abdominal pain and chest pain. Patient states that the chest pain abdominal pain started 4 days ago. Patient states that the chest pain is in her bilateral chest. Patient states that the abdominal pain is in her lower abdomen. Patient states she is having dysuria. Patient denies vaginal discharge. Patient denies fever and chills. Patient denies shortness of breath. Patient denies dizziness. Patient denies blurry vision. Patient denies headache. Patient states she has a history of anxiety, depression and diabetes. Patient denies allergies. EMS report reviewed. Report received from EMS. Patient denies recent travel. Patient denies recent international travel. Patient denies exposure to the novel coronavirus. Patient denies sick contacts. Patient denies fever and chills. Patient denies cough. Patient denies diarrhea. Patient denies coming in contact with anybody with symptoms of the novel coronavirus. Complaint: chest pain -: Sudden, days(s) Onset: during rest Pain Location: substernal, left chest, right chest Pain Radiation: none Severity: mild Severity scale (0 -10): 4 Quality: sharp Consistency: constant Improves With: rest Worsens With: palpation, movement re: denies: nausea, vomting, diaphoresis, dyspnea, sense of impending doom Other Symptoms: denies: cough, fever, syncope, rash, acid taste in mouth, leg s welling, palpitations, burping Treatments Prior to Arrival: none Aspirin use within the Past 7 Days: (1) Yes - Related Data On Oral Contraceptives: No Previous Rx's Medication Instructions Recorded Last Taken Type Ibuprofen [Motrin] 800 mg PO Q8HR PRN #30 tablet 05/25/16 Unknown Rx methOCARBAMOL [Robaxin TAB] 500 mg PO BID #20 tab 05/25/16 Unknown Rx traMADoL [Ultram 50 MG tab] 50 mg PO Q6HR PRN #20 tablet 05/25/16 Unknown Rx Azithromycin [Zithromax Tri-Matteo] 500 mg PO DAILY 3 Days #3 tablet 09/11/20 Unknown Rx Allergies Allergy/AdvReac Type Severity Reaction Status Date / Time No Known Allergies Allergy Verified 11/01/15 23:55 Heart Score - HEART Score History: Slightly suspicious EKG: Normal Age: 45-65 Risk factors: > 3 risk factors or hx of atherosclerotic disease Troponin: < normal limit HEART Score: 3 - EKG Read Time Time EKG Completed: 00:19 EKG Read Time: 00:19 ED Review of Systems ROS: Stated complaint: POSS UTI Other details as noted in HPI Constitutional: denies: chills, fever Eyes: denies: eye pain, eye discharge, vision change ENT: denies: ear pain, throat pain Respiratory: denies: cough, shortness of breath, wheezing Cardiovascular: as per HPI, chest pain. denies: palpitations Endocrine: no symptoms reported Gastrointestinal: as per HPI, abdominal pain. denies: nausea, diarrhea Genitourinary: as per HPI, dysuria. denies: urgency, discharge Musculoskeletal: denies: back pain, joint swelling, arthralgia Skin: denies: rash, lesions Neurological: denies: headache, weakness, paresthesias Psychiatric: denies: anxiety, depression Hematological/Lymphatic: denies: easy bleeding, easy bruising ED Past Medical Hx - Past Medical History Previous Medical History?: Yes Hx Hypertension: Yes Hx Diabetes: Yes Hx GERD: Yes Hx Psychiatric Treatment: Yes (depression, bipolar) Additional medical history: Hypothyroidism. Diabetic Neuropathy - Surgical History Past Surgical History?: Yes Hx Cholecystectomy: Yes (1999) Additional Surgical History: Hysterectomy, tubes tied, hernia surgeries x 3, left wrist cyst removal, Brain aneurysm - Family History Family history: no significant - Social History Smoking Status: Current Every Day Smoker Substance Use Type: None - Medications Home Medications: Home Medications Medication Instructions Recorded Confirmed Last Taken Type Ibuprofen [Motrin] 800 mg PO Q8HR PRN #30 tablet 05/25/16 Unknown Rx methOCARBAMOL [Robaxin TAB] 500 mg PO BID #20 tab 05/25/16 Unknown Rx traMADoL [Ultram 50 MG tab] 50 mg PO Q6HR PRN #20 tablet 05/25/16 Unknown Rx Azithromycin [Zithromax Tri-Matteo] 500 mg PO DAILY 3 Days #3 tablet 09/11/20 Unknown Rx ED Physical Exam - General Limitations: No Limitations General appearance: alert, in no apparent distress - Head Head exam: Present: atraumatic, normocephalic - Eye Eye exam: Present: normal appearance - ENT ENT exam: Present: mucous membranes moist - Neck Neck exam: Present: normal inspection - Respiratory Respiratory exam: Present: normal lung sounds bilaterally, chest wall tenderness (Bilateral chest wall tenderness to palpation. Palpation of the chest wall reproduces symptoms.). Absent: respiratory distress, wheezes, rales, accessory muscle use, decreased breath sounds, prolonged expiratory - Cardiovascular Cardiovascular Exam: Present: regular rate, normal rhythm, normal heart sounds. Absent: systolic murmur, diastolic murmur, rubs, gallop - GI/Abdominal GI/Abdominal exam: Present: soft, normal bowel sounds. Absent: distended, tenderness, guarding - Extremities Exam Extremities exam: Present: normal inspection - Back Exam Back exam: Present: normal inspection - Neurological Exam Neurological exam: Present: alert, oriented X3 - Psychiatric Psychiatric exam: Present: normal affect, normal mood - Skin Skin exam: Present: warm, dry, intact, normal color. Absent: rash ED Course Vital Signs 09/10/20 09/10/20 09/10/20 22:04 22:16 22:29 Temperature 98.1 F Pulse Rate 83 Respiratory 18 Rate Blood Pressure 139/73 O2 Sat by Pulse 94 95 Oximetry - Reevaluation(s) Reevaluation #1: I discussed all results and clinical findings with patient. I discussed plan of care with patient. Patient states he does not want to be transferred to [facility]. Patient refuses transfer. Patient is of sound mind and body. Patient is awake alert and oriented x4. I discussed the risk with patient. Patient voiced understanding of the risk. Patient signed AMA form. Even though the patient is leaving AGAINST MEDICAL ADVICE, the patient will be given a formal discharge. 09/11/20 00:15 DANIELLE score - Danielle Score Age > 65: (0) No Aspirin use within the Past 7 Days: (1) Yes 3 or more CAD Risk Factors: (1) Yes 2 or more Angina events in past 24 hrs: (1) Yes Known CAD with more than 50% Stenosis: (0) No Elevated Cardiac Markers: (0) No ST Deviation Greater than 0.5mm: (0) No DANIELLE Score: 3 ED Medical Decision Making - Lab Data Result diagrams: 09/10/20 22:29 09/10/20 22:29 - EKG Data -: EKG Interpreted by Me EKG shows normal: sinus rhythm, axis, intervals, QRS complexes, ST-T waves Rate: normal - Radiology Data Radiology results: report reviewed, image reviewed interpreted by me: Chest x-ray: Positive pneumonia, no pneumothorax, no foreign body, no osseous findings, CHEST 1 VIEW 09/10/2020 10:00 PM INDICATION / CLINICAL INFORMATION: Chest Pain. COMPARISON: One view of the chest from 12/09/2019 FINDINGS: SUPPORT DEVICES: None. HEART / MEDIASTINUM: No significant abnormality. LUNGS / PLEURA: There are right upper lobe airspace opacities. Generalized bilateral interstitial prominence is also noted. No significant pleural effusion. No pneumothorax. ADDITIONAL FINDINGS: No significant additional findings. IMPRESSION: Suspected right upper lobe pneumonia. Continued radiographic follow-up to resolution is recommended. - Medical Decision Making Patient is a 54-year-old female who presents emergency room with complaints of abdominal pain, chest pain and dysuria. Patient had labs done which were essentially unremarkable except for elevated blood sugar. Patient had a UA done which was negative for UTI but showed high glucose urea. Patient had a x-ray done which showed upper lobe pneumonia. Patient EKG which was negative for acute fracture normal ST. Due to the patient's risk factors and elevated heart score and DANIELLE score, I would recommend admission to rule out ACS and further inpatient services. Patient's primary insurance is [employer]. I discussed this with the patient possibility of transfer or admission the patient refused. Patient states she does not want to be admitted or transferred. Patient signed AMA form. I discussed the risk with patient. Patient voiced understanding the risk. Patient left hospital AGAINST MEDICAL ADVICE. Even though the patient is leaving as well face, a formal discharge will be given to the patient. Critical care time documented due to the multiple reassessments, prolonged time at the bedside, interpretation of diagnostics and labs. - Differential Diagnosis Chest pain, pneumonia, ACS, anxiety, abdominal pain, UTI Critical Care Time: Yes Critical care time in (mins) excluding proc time.: 35 Critical care attestation.: If time is entered above; I have spent that time in minutes in the direct care of this critically ill patient, excluding procedure time. Critical Care Time: 35 minutes ED Disposition Clinical Impression: Chest wall pain, Hyperglycemia Chest pain Qualifiers: Chest pain type: unspecified Qualified Code(s): R07.9 - Chest pain, unspecified Pneumonia Qualifiers: Pneumonia type: due to unspecified organism Laterality: unspecified laterality Lung location: upper lobe of lung Qualified Code(s): J18.9 - Pneumonia, unspecified organism Disposition: LEFT AGAINST MED ADVICE Is pt being admited?: No Does the pt Need Aspirin: No Condition: Critical Instructions: Nonspecific Chest Pain, Adult, Bacterial Pneumonia (ED), Nonspecific Chest Pain, Adult, [id number], Chest Wall Pain, Ijxn-[id number], Hyperglycemia, Community-Acquired Pneumonia, Adult Additional Instructions: Patient to follow-up with your primary care in 2 to 3 days. Patient to follow- up with financial systems director and video recorder mechanic in 2 to 3 days. Patient to rest. Patient to increase water. Patient to avoid strenuous exercise or heavy lifting until cleared by video recorder mechanic and primary care. Patient to monitor blood pressure at home. Patient to monitor blood sugars at home. Patient to keep blood sugar and blood pressure log. Patient take blood pressure and blood sugar log to all follow-up appointments. Patient eat a low-salt diet. Patient eat a heart healthy diet. Patient eat a diabetic diet. Patient to take Tylenol or ibuprofen as needed for pain. Patient to take meds as directed. Patient to return to the ER if condition worsens, changes or new symptoms arise. Prescriptions: Azithromycin [Zithromax Tri-Matteo] 500 mg PO DAILY 3 Days #3 tablet Referrals: PRIMARY CARE, [Primary Care Provider] - 2-3 Days Time of Disposition: 00:23
[2020-09-10 22:29] VITALS: BP 139/73
[2020-09-10 22:45] LABS: Mucus,Urine FEW /HPF; RBC,Urine < 1.0 /HPF (0.0-6.0)
[2020-09-10 22:46] LABS: Bilirubin,Urine NEG (Negative); Blood,Urine SM (Negative); Color,Urine Yellow (Yellow); Protein,Urine >500 mg/dL (Negative); Urobilinogen,Urine < 2.0 mg/dL (<2.0)
[2020-09-10 22:52] LABS: Amphetamine Screen,Urine PRESUMPTIVE NEGATIVE; Benzodiazepines Screen,Urine PRESUMPTIVE NEGATIVE; Cannabinoid Screen,Urine PRESUMPTIVE NEGATIVE; Cocaine Screen,Urine PRESUMPTIVE NEGATIVE; Methadone Screen,Urine PRESUMPTIVE NEGATIVE; Opiate Screen,Urine PRESUMPTIVE NEGATIVE
[2020-09-10 22:57] LABS: Basophils % (Auto) 0.6 % (0.0-1.8); Eosinophils % (Auto) 0.7 % (0.0-4.3); Hematocrit 42.4 % (30.3-42.9); Hemoglobin 14.8 gm/dl (10.1-14.3); Lymphocytes # (Auto) 1.1 K/mm3 (1.2-5.4); Lymphocytes % (Auto) 16.4 % (13.4-35.0); Mean Corpuscular HGB Conc 35 % (30-34); Mean Corpuscular Volume 92 fl (79-97); Monocytes # (Auto) 0.6 K/mm3 (0.0-0.8); Monocytes % (Auto) 9.1 % (0.0-7.3); Platelet Count 118 K/mm3 (140-440); Red Blood Count 4.61 M/mm3 (3.65-5.03); Red Cell Distribution Width 14.2 % (13.2-15.2)
[2020-09-10 23:13] LABS: Alanine Aminotransferase 34 units/L (7-56); Albumin 4.1 g/dL (3.9-5); BUN/Creatinine Ratio 12; Blood Urea Nitrogen 11 mg/dL (7-17); Calcium 8.2 mg/dL (8.4-10.2); Hemolysis Index 5
--- NOTE | 2020-09-10 23:27 | XRay Report ---
CHEST 1 VIEW 09/10/2020 10:00 PM INDICATION / CLINICAL INFORMATION: Chest Pain. COMPARISON: One view of the chest from 12/09/2019 FINDINGS: SUPPORT DEVICES: None. HEART / MEDIASTINUM: No significant abnormality. LUNGS / PLEURA: There are right upper lobe airspace opacities. Generalized bilateral interstitial pro minence is also noted. No significant pleural effusion. No pneumothorax. ADDITIONAL FINDINGS: No significant additional findings. IMPRESSION: Suspected right upper lobe pneumonia. Continued radiographic follow-up to resolution is recommended. Signer Name: Kai Hernandez MD Signed: 09/10/2020 11:22 PM Workstation Name: [id number]
--- NOTE | 2020-09-12 17:43 | Electrocardiograph Report ---
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 No previous ECG available for comparison Electronically Signed On 09-12-2020 17:42:56 EDT by Anthony Arrieta
== END 2020-09-11 01:30 | disposition left against medical advice (07) ==
LOC: ED 21:20
DX: J18.9 Pneumonia, unspecified organism (principal); E11.65 Type 2 diabetes mellitus with hyperglycemia; I10 Essential (primary) hypertension; K21.9 Gastro-esophageal reflux disease without esophagitis; F31.9 Bipolar disorder, unspecified; E03.9 Hypothyroidism, unspecified; F17.200 Nicotine dependence, unspecified, uncomplicated
CPT/HCPCS: 36415; 71045; 80053; 80307; 81001; 84484; 85025; 93005; 99284

== ENCOUNTER 2020-09-15 18:14 | Inpatient (IN) | payer MEDICARE ==
[2020-09-15] MEDS ORDERED: NALOXONE 0.4 MG/1 ML INJ IV PRN (18:36)
[2020-09-15] MEDS ORDERED: DEXTROSE 50% IN WATER (25GM) 50 ML SYRINGE IV PRN ×2 (18:36→22:19)
[2020-09-15] MEDS ORDERED: ONDANSETRON 4 MG/2 ML INJ IV PRN ×2 (18:36→22:09)
--- NOTE | 2020-09-15 18:38 | Emergency Department Report ---
ED General Adult HPI - General Chief complaint: Medical Clearance Stated complaint: I am fine, I am just sleepy Time Seen by Provider: 09/15/20 18:22 Source: patient, EMS (Verbal report received from emergency medical services. EMS documentation not available at time of chart dictation ), RN notes reviewed, old records reviewed Mode of arrival: Stretcher Limitations: Altered Mental Status, Physical Limitation - History of Present Illness Initial comments: The patient was evaluated in the emergency department for symptoms described in the history of present illness. He/she was evaluated in the context of the global COVID-19 pandemic, which necessitated consideration that the patient might be at risk for infection with the virus that causes COVID-19. Institutional protocols and algorithms that pertain to the evaluation of patients at risk for COVID-19 are in a state of rapid change based on information released by regulatory bodies including the CDC and federal and state organizations. These policies and algorithms were followed during the patient's care in the emergency department. Please note that these policies, procedures and recommendations changed on a rapid basis. The patient is a 54-year-old female. Past medical history includes insulin- dependent diabetes, GERD, hypertension, hypothyroidism, depression bipolar disorder, recently seen at this hospital a few days ago, and started on azithromycin for right upper lobe pneumonia. The patient was brought to the hospital today by emergency medical services. EMS states that they received a call because the patient was found on the floor, uncertain how she ended up on the floor, with a complaint of weakness versus syncope. The patient states that she took her trazodone today to go to sleep. She thinks that she only took 1. She does not know how many she took. She cannot tell me her dosage of milligrams. She denies coingestions. She denies physical pain. She denies homicidality or suicidality. She denies headache, neck pain, chest pain, abdominal pain, shortness of breath, hallucinations, access to guns and firearms. EMS states the patient had normal vital signs in the field, and ambulated with assistance. The patient is not currently accompanied by friends or family at this time for collateral information or additional information. Of note, the patient has defecated on herself, which she did state that she does when she gets sleepy, and she arrives in our green psychiatric scrubs. EMS did report that the patient had a high Accu-Chek/glucose level. Patient herself is sleepy but arousable. She is protecting her airway. She does not describe the qualitative nature of her symptoms, except to say that she is sleepy, she does not describe exacerbating factors, relieving factors, or aggravating factors -: This afternoon - Related Data Previous Rx's Medication Instructions Recorded Last Taken Type Ibuprofen [Motrin] 800 mg PO Q8HR PRN #30 tablet 05/25/16 Unknown Rx methOCARBAMOL [Robaxin TAB] 500 mg PO BID #20 tab 05/25/16 Unknown Rx traMADoL [Ultram 50 MG tab] 50 mg PO Q6HR PRN #20 tablet 05/25/16 Unknown Rx Azithromycin [Zithromax Tri-Matteo] 500 mg PO DAILY 3 Days #3 tablet 09/11/20 Unknown Rx Allergies Allergy/AdvReac Type Severity Reaction Status Date / Time No Known Allergies Allergy Verified 11/01/15 23:55 ED Review of Systems ROS: Stated complaint: SLEEPY Other details as noted in HPI Comment: Unobtainable due to pts medical conditions Constitutional: denies: fever Respiratory: denies: cough Cardiovascular: denies: chest pain Gastrointestinal: denies: abdominal pain Neurological: weakness, confusion Psychiatric: denies: homicidal thoughts, suicidal thoughts ED Past Medical Hx - Past Medical History Previous Medical History?: Yes Hx Hypertension: Yes Hx Diabetes: Yes Hx GERD: Yes Hx Psychiatric Treatment: Yes (depression, bipolar) Additional medical history: Hypothyroidism. Diabetic Neuropathy - Surgical History Past Surgical History?: Yes Hx Cholecystectomy: Yes (1999) Additional Surgical History: Hysterectomy, tubes tied, hernia surgeries x 3, left wrist cyst removal, Brain aneurysm - Social History Smoking Status: Current Every Day Smoker Substance Use Type: None - Medications Home Medications: Home Medications Medication Instructions Recorded Confirmed Last Taken Type Ibuprofen [Motrin] 800 mg PO Q8HR PRN #30 tablet 05/25/16 Unknown Rx methOCARBAMOL [Robaxin TAB] 500 mg PO BID #20 tab 05/25/16 Unknown Rx traMADoL [Ultram 50 MG tab] 50 mg PO Q6HR PRN #20 tablet 05/25/16 Unknown Rx Azithromycin [Zithromax Tri-Matteo] 500 mg PO DAILY 3 Days #3 tablet 09/11/20 U nknown Rx ED Physical Exam - General Limitations: Altered Mental Status General appearance: lethargic - Head Head exam: Present: atraumatic, normocephalic - Eye Eye exam: Present: normal appearance, PERRL, EOMI. Absent: nystagmus - ENT ENT exam: Present: normal exam, normal orophraynx, mucous membranes moist, normal external ear exam - Neck Neck exam: Present: normal inspection, full ROM. Absent: tenderness, meningismus - Respiratory Respiratory exam: Present: normal lung sounds bilaterally. Absent: respiratory distress, wheezes, rales, rhonchi, stridor, decreased breath sounds - Cardiovascular Cardiovascular Exam: Present: regular rate, normal rhythm, normal heart sounds. Absent: bradycardia, tachycardia, irregular rhythm, systolic murmur, diastolic murmur, rubs, gallop - GI/Abdominal GI/Abdominal exam: Present: soft. Absent: distended, tenderness, guarding, rebound, rigid, pulsatile mass - Extremities Exam Extremities exam: Present: normal inspection, full ROM, other (2+ pulses noted in the bilateral upper and lower extremities. There is no palpable cord. negative Homans sign. Muscular compartments are soft. The pelvis is stable.). Absent: pedal edema, calf tenderness - Back Exam Back exam: Present: normal inspection. Absent: tenderness, CVA tenderness (R), CVA tenderness (L), paraspinal tenderness, vertebral tenderness - Neurological Exam Neurological exam: Present: altered (Patient sleepy but arousable. When aroused, she is awake to name, place, location.), other (No facial droop. Tongue midline. Extraocular movements intact bilaterally. Facial sensation intact to light touch in V1, V2, V3 distribution bilaterally. 5 and a 5 strength in 4 extremities. Sensation intact to light touch in 4 extremities.). Absent: motor sensory deficit - Psychiatric Psychiatric exam: Present: flat affect. Absent: homicidal ideation - Skin Skin exam: Present: warm, dry, intact, normal color. Absent: rash ED Course Vital Signs 09/15/20 09/15/20 09/15/20 18:36 18:46 19:06 Temperature Pulse Rate 82 Respiratory 21 31 H Rate Blood Pressure 126/45 126/45 Blood Pressure [Left] O2 Sat by Pulse 86 95 Oximetry 09/15/20 09/15/20 19:16 19:42 Temperature 97.7 F Pulse Rate 81 82 Respiratory 19 14 Rate Blood Pressure 126/45 Blood Pressure 144/67 [Left] O2 Sat by Pulse Oximetry - Reevaluation(s) Reevaluation #1: 09/15/20 19:12 Differential diagnosis, including but not limited to: Toxic encephalopathy, metabolic encephalopathy, pneumonia, urinary tract infection, overdose, hyperglycemia, disorganized behavior Assessment and plan: 54-year-old female, who is sleepy but arousable, brought to the hospital by EMS after ingesting trazodone, uncertain how many" time, with indication that she wants to go to sleep. Patient placed on hold. Because patient is found on the floor, and appears to be impaired/intoxicated, noncontrast CT scan of the brain and cervical spine will be obtained. We will obtain x-ray of the chest given her recent diagnosis of right upper lobe infiltrate. As needed Narcan, as needed dextrose ordered. Urinalysis ordered. Appropriate laboratory studies reviewed. Patient to be placed on electronic device monitor. Reassess after initial data points. The patient states she is not homicidal or suicidal, however, she has had psychiatric history in the past, and we would appreciate a psychiatric consultation. However, we will simultaneously medically optimized and cleared this patient. We will also discuss with the Poison Control [facility] once her initial diagnostics have resulted. 09/15/20 19:56 Laboratory studies demonstrates hypokalemia, pseudohyponatremia, hyperglycemia, elevated acetaminophen level, LFT nonspecific elevation, unremarkable PT/INR, elevated TSH. Patient found to have pulmonary infiltrates and hypoxia. ABG ordered. Patient be medicated empirically with Decadron, Synthroid, ceftriaxone, azith romycin, and placed on isolation precautions. Covid swab is ordered. Patient is a [facility] patient, we will reach out to the [facility] facility/transfer hub, and discussed plan of care. In my opinion, patient not suitable to be transferred out at this time, given her multiple issues. Hold insulin at this time for hyperglycemia, given hypokalemia. Give 1 L of IV fluid, given concern for Covid, and propensity for Covid patient to develop acute respiratory distress syndrome. Order blood cultures and lactic acid. 09/15/20 20:08 CT scan of the cervical spine negative for acute findings. [facility] states that the patient is not in their network. Therefore, this patient will be admitted to this medical service. Dr Franc Roldan to admit to [facility] 09/15/20 20:42 Discussed history, physical, laboratory studies, imaging studies and overall clinical impression with [facility] and the [place] [facility]. Recommend an acetylcysteine protocol. Recommend magnesium greater than 2, potassium greater than 4, and calcium greater than 9. Critical care physician, Dr. Pierson informed Given multiple issues, would triage to our intensive care unit. Arterial blood gas demonstrates acute hypoxemic respiratory failure. Dr Franc Roldan to admit to [facility] Medical decision makin-year-old female with weakness, delirium, altered mental status, fall, inability to care for self, with possible overdose, evidence of elevated acetaminophen, nonspecific elevation in liver function tests, hypoxic/hypoxemic respiratory failure, hypothyroidism/questionable myxedema, requires triage to our intensive care unit to address her multiple acute issues. She will require antidote, fluids, antibiotics, supplemental oxygen, steroids, thyroid supplementation, and electrolyte correction. 09/15/20 20:43 09/16/20 00:17 ED Medical Decision Making - Lab Data Result diagrams: 09/15/20 18:46 09/15/20 18:46 Vital Signs 09/15/20 09/15/20 09/15/20 18:36 18:46 19:06 Pulse Rate 82 Respiratory 21 31 H Rate Blood Pressure 126/45 126/45 O2 Sat by Pulse 86 95 Oximetry 09/15/20 19:16 Pulse Rate 81 Respiratory 19 Rate Blood Pressure 126/45 O2 Sat by Pulse Oximetry Lab Results 09/15/20 09/15/20 09/15/20 Range/Units 18:46 18:46 18:46 WBC 9.7 (4.5-11.0) K/mm3 RBC 4.55 (3.65-5.03) M/mm3 Hgb 14.4 H (10.1-14.3) gm/dl Hct 42.3 (30.3-42.9) % MCV 93 (79-97) fl MCH 32 (28-32) pg MCHC 34 (30-34) % RDW 14.3 (13.2-15.2) % Plt Count 153 (140-440) K/mm3 PT 13.3 (12.2-14.9) Sec. INR 0.96 (0.87-1.13) VBG pH (7.320-7.420) Sodium 128 L (137-145) mmol/L Potassium 3.2 L (3.6-5.0) mmol/L Chloride 89.3 L (98-107) mmol/L Carbon Dioxide 23 (22-30) mmol/L Anion Gap 19 mmol/L BUN 12 (7-17) mg/dL Creatinine 0.8 (0.6-1.2) mg/dL Estimated GFR > 60 ml/min BUN/Creatinine Ratio 15 % Glucose 388 H (65-100) mg/dL Calcium 8.2 L (8.4-10.2) mg/dL Magnesium 2.10 (1.7-2.3) mg/dL Total Bilirubin 0.60 (0.1-1.2) mg/dL AST 69 H (5-40) units/L ALT 47 (7-56) units/L Alkaline Phosphatase 77 (35-129) units/L Ammonia (25-60) umol/L Troponin T < 0.010 (0.00-0.029) ng/mL Total Protein 6.7 (6.3-8.2) g/dL Albumin 3.6 L (3.9-5) g/dL Albumin/Globulin Ratio 1.2 % TSH (0.270-4.200) mlU/mL Salicylates (2.8-20.0) mg/dL Acetaminophen (10.0-30.0) ug/mL Plasma/Serum Alcohol (0-0.07) % 09/15/20 09/15/20 09/15/20 Range/Units 18:46 18:46 18:46 WBC (4.5-11.0) K/mm3 RBC (3.65-5.03) M/mm3 Hgb (10.1-14.3) gm/dl Hct (30.3-42.9) % MCV (79-97) fl MCH (28-32) pg MCHC (30-34) % RDW (13.2-15.2) % Plt Count (140-440) K/mm3 PT (12.2-14.9) Sec. INR (0.87-1.13) VBG pH (7.320-7.420) Sodium (137-145) mmol/L Potassium (3.6-5.0) mmol/L Chloride (98-107) mmol/L Carbon Dioxide (22-30) mmol/L Anion Gap mmol/L BUN (7-17) mg/dL Creatinine (0.6-1.2) mg/dL Estimated GFR ml/min BUN/Creatinine Ratio % Glucose (65-100) mg/dL Calcium (8.4-10.2) mg/dL Magnesium (1.7-2.3) mg/dL Total Bilirubin (0.1-1.2) mg/dL AST (5-40) units/L ALT (7-56) units/L Alkaline Phosphatase (35-129) units/L Ammonia 23.0 L (25-60) umol/L Troponin T (0.00-0.029) ng/mL Total Protein (6.3-8.2) g/dL Albumin (3.9-5) g/dL Albumin/Globulin Ratio % TSH 34.670 H (0.270-4.200) mlU/mL Salicylates < 0.3 L (2.8-20.0) mg/dL Acetaminophen (10.0-30.0) ug/mL Plasma/Serum Alcohol (0-0.07) % 09/15/20 09/15/20 09/15/20 Range/Units 18:46 18:46 18:46 WBC (4.5-11.0) K/mm3 RBC (3.65-5.03) M/mm3 Hgb (10.1-14.3) gm/dl Hct (30.3-42.9) % MCV (79-97) fl MCH (28-32) pg MCHC (30-34) % RDW (13.2-15.2) % Plt Count (140-440) K/mm3 PT (12.2-14.9) Sec. INR (0.87-1.13) VBG pH 7.368 (7.320-7.420) Sodium (137-145) mmol/L Potassium (3.6-5.0) mmol/L Chloride (98-107) mmol/L Carbon Dioxide (22-30) mmol/L Anion Gap mmol/L BUN (7-17) mg/dL Creatinine (0.6-1.2) mg/dL Estimated GFR ml/min BUN/Creatinine Ratio % Glucose (65-100) mg/dL Calcium (8.4-10.2) mg/dL Magnesium (1.7-2.3) mg/dL Total Bilirubin (0.1-1.2) mg/dL AST (5-40) units/L ALT (7-56) units/L Alkaline Phosphatase (35-129) units/L Ammonia (25-60) umol/L Troponin T (0.00-0.029) ng/mL Total Protein (6.3-8.2) g/dL Albumin (3.9-5) g/dL Albumin/Globulin Ratio % TSH (0.270-4.200) mlU/mL Salicylates (2.8-20.0) mg/dL Acetaminophen 9.1 L (10.0-30.0) ug/mL Plasma/Serum Alcohol < 0.01 (0-0.07) % O2 sat 91% on room air - EKG Data -: EKG Interpreted by Mt EKG shows normal: sinus rhythm Rate: normal - EKG Data 09/15/20 19:13 EKG #1 interpreted at 18: 42 Motion artifact, sinus rhythm, 82 bpm. Normal P wave axis, borderline leftward axis deviation, motion artifact, poor R wave progression. MD interval 222 ms. QT 451 ms, QTC 427 ms. Abnormal EKG. Not a STEMI. When compared to prior EKG from 09/10/2020 appears to be grossly unchanged, although rightward axis deviation is less prominent compared to prior, and previous MD interval is 201 ms. - Radiology Data Radiology results: pending, report reviewed, image reviewed . CT head/brain wo con INDICATION / CLINICAL INFORMATION: 54 years Female; found down on floor after od. TECHNIQUE: Routine CT head without contrast. All CT scans at this location are performed using CT dose reduction for ALARA by means of automated exposure control. COMPARISON: 01/17/2019 FINDINGS: BRAIN / INTRACRANIAL CONTENTS: Aneurysm clip is seen in the suprasellar cistern on the right. Craniotomy site is seen in the right frontoparietal temporal region. These findings are new from prior. Otherwise, no acute hemorrhage, mass effect, midline shift, hydrocephalus, or acute, large territorial infarct. No signs of significant atrophy or chronic infarct. There are mild areas of decreased atte nuation in the white matter of the cerebral hemispheres. These are nonspecific findings and may be related to microangiopathy (hypertension, diabetes, atherosclerosis), given the patient's age. CRANIOCERVICAL JUNCTION: No significant abnormality. ORBITS: No significant abnormality of visualized or bits. SINUSES / MASTOIDS: Visualized paranasal sinuses and mastoid air cells are essentially clear. ADDITIONAL FINDINGS: None. IMPRESSION: 1. No focal mass, hemorrhage, hydrocephalus, or acute, large territorial infarct. Signer Name: George Dick MD, III Signed: 09/15/2020 6:35 PM Workstation Name: [id number] 1 VIEW 09/15/2020 7:17 PM INDICATION / CLINICAL INFORMATION: Fall and weak ness. History of right upper lobe pneumonia. COMPARISON: 09/10/20. FINDINGS: SUPPORT DEVICES: None. HEART / MEDIASTINUM: Unchanged. LUNGS / PLEURA: Patchy parenchymal disease in the right midlung has increased. Patchy parenchymal disease in the left mid to lower lung peripherally is new. No large pleural effusion. No pneumothorax. ADDITIONAL FINDINGS: No significant additional findings. IMPRESSION: Patchy parenchymal opacities in both mid to lower lung zones have increased. Atypical causes of pneumonia, including viral pneumonia, should be considered. Signer Name: Dieter Pascual MD Signed: 09/15/2020 6:34 PM Workstation Name: [id number] Critical Care Time: Yes Critical care time in (mins) excluding proc time.: 65 Critical care attestation.: If time is entered above; I have spent that time in minutes in the direct care of this critically ill patient, excluding procedure time. ED Disposition Clinical Impression: Drug ingestion, Fall, Hyperglycemia, Pneumonia, Hypokalemia, Acute respiratory failure with hypoxia, Hypothyroidism, Suspected 2019 novel coronavirus inf ection, Acute encephalopathy, Tylenol overdose Disposition: -09 OP ADMIT IP TO THIS HOSP Is pt being admited?: Yes Does the pt Need Aspirin: No Condition: Critical
[2020-09-15 19:22] LABS: Hematocrit 42.3 % (30.3-42.9); Hemoglobin 14.4 gm/dl (10.1-14.3); Mean Corpuscular HGB Conc 34 % (30-34); Mean Corpuscular Volume 93 fl (79-97); Platelet Count 153 K/mm3 (140-440); Red Blood Count 4.55 M/mm3 (3.65-5.03); Red Cell Distribution Width 14.3 % (13.2-15.2)
[2020-09-15 19:23] LABS: Alanine Aminotransferase 47 units/L (7-56); Albumin 3.6 g/dL (3.9-5); BUN/Creatinine Ratio 15; Blood Urea Nitrogen 12 mg/dL (7-17); Calcium 8.2 mg/dL (8.4-10.2); Hemolysis Index 56
[2020-09-15 19:34] LABS: INR 0.96 (0.87-1.13)
[2020-09-15] MEDS ORDERED: AZITHROMYCIN/NS 500 MG/250 ML 500 MG/250 ML BAG IV ONE (19:35)
[2020-09-15] MEDS ORDERED: cefTRIAXone/NS 1 GM/50 ML 1 GM/50 ML BAG IV ONE (19:35)
[2020-09-15] MEDS ORDERED: SODIUM CHLORIDE 0.9% 500 ML 500 ML IV ONE (19:36)
[2020-09-15] MEDS ORDERED: POTASSIUM CHLORIDE ER 20 MEQ TAB PO ONE (19:36)
--- NOTE | 2020-09-15 19:39 | XRay Report ---
CHEST 1 VIEW 09/15/2020 7:17 PM INDICATION / CLINICAL INFORMATION: Fall and weakness. History of right upper lobe pneumonia. COMPARISON: 09/10/20. FINDINGS: SUPPORT DEVICES: None. HEART / MEDIASTINUM: Unchanged. LUNGS / PLEURA: Patchy parenchymal disease in the right midlung has increased. Patchy parenchymal dis ease in the left mid to lower lung peripherally is new. No large pleural effusion. No pneumothorax. ADDITIONAL FINDINGS: No significant additional findings. IMPRESSION: Patchy parenchymal opacities in both mid to lower lung zones have increased. Atypical cau ses of pneumonia, including viral pneumonia, should be considered. Signer Name: Dieter Pascual MD Signed: 09/15/2020 7:34 PM Workstation Name: [id number]
[2020-09-15] MEDS ORDERED: LEVOTHYROXINE 100 MCG INJ IV STA (19:40)
[2020-09-15] MEDS ORDERED: dexAMETHasone 4 MG/ML VIAL IV ONE (19:40)
--- NOTE | 2020-09-15 19:40 | Cat Scan Report ---
. CT head/brain wo con INDICATION / CLINICAL INFORMATION: 54 years Female; found down on floor after od. TECHNIQUE: Routine CT head without contrast. All CT scans at this location are performed using CT dos e reduction for ALARA by means of automated exposure control. COMPARISON: 01/17/2019 FINDINGS: BRAIN / INTRACRANIAL CONTENTS: Aneurysm clip is seen in the suprasellar cistern on the right. Craniot albert site is seen in the right frontoparietal temporal region. These findings are new from prior. Otherwise, no acute hemorrhage, mass effect, midline shift, hydrocephalus, or acute, large territori al infarct. No signs of significant atrophy or chronic infarct. There are mild areas of decreased attenuation in the white matter of the cerebral hemispheres. These are nonspecific findings and may be related to microangiopathy (hypertension, diabetes, atheroscleros is), given the patient's age. CRANIOCERVICAL JUNCTION: No significant abnormality. ORBITS: No significant abnormality of visualized orbits. SINUSES / MASTOIDS: Visualized paranasal sinuses and mastoid air cells are essentially clear. ADDITIONAL FINDINGS: None. IMPRESSION: 1. No focal mass, hemorrhage, hydrocephalus, or acute, large territorial infarct. Signer Name: George Dick MD, III Signed: 09/15/2020 7:35 PM Workstation Name: [id number]
--- NOTE | 2020-09-15 20:01 | Cat Scan Report ---
CT cervical spine wo con INDICATION / CLINICAL INFORMATION: 54 years Female; found down on floor after od. TECHNIQUE: Axial CT images of the cervical spine were obtained. Sagittal and coronal reformatted images were pr oduced. All CT scans at this location are performed using CT dose reduction for ALARA by means of aut omated exposure control. COMPARISON: None available. FINDINGS: POST-SURGICAL CHANGES: None. ALIGNMENT: No significant abnormality. VERTEBRAE: No signs of fracture. Vertebral bodies are grossly normal in height throughout. No signif icant facet joint disease or osseous foraminal narrowing appreciated. INTRAVERTEBRAL DISCS: Disc spaces are fairly well-maintained throughout without significant canal anna nosis. Mild disc disease seen at C5-6 and C6-7. No dominant herniation noted. PARASPINAL SOFT TISSUES: No significant abnormality. ADDITIONAL FINDINGS: Significant atherosclerotic disease noted. Subtle emphysematous changes seen in the lung apices-right greater than left. There is partial opacification of the inferior mastoids bilaterally. IMPRESSION: 1. No signs of acute bony trauma to the cervical spine. Signer Name: George Dick MD, III Signed: 09/15/2020 7:57 PM Workstation Name: [id number]
[2020-09-15] MEDS ORDERED: CALCIUM CARBONATE 500 MG TAB CHEW PO ONE (20:38)
[2020-09-15] MEDS ORDERED: CALCIUM GLUCONATE 1,000 MG in SODIUM CHLORIDE 0.9% 100 ML IV ONE (21:00)
[2020-09-15] MEDS ORDERED: DEXTROSE 5% IV ONE ×2 (21:30→23:00)
[2020-09-15] MEDS ORDERED: WATER IV ONE ×2 (21:30→23:00)
[2020-09-15] MEDS ORDERED: ACETADOTE IV ONE ×2 (21:30→23:00)
[2020-09-15] MEDS ORDERED: MORPHINE 4 MG/1 ML INJ IV PRN (22:09)
[2020-09-15] MEDS ORDERED: IBUPROFEN 600 MG TAB PO PRN (22:09)
[2020-09-15] MEDS ORDERED: MAGNESIUM HYDROXIDE (MOM) ORAL LIQD UDC PO PRN (22:09)
--- NOTE | 2020-09-15 22:24 | History and Physical Report ---
History of Present Illness Date of examination: 09/15/20 Date of admission: 09/15/2020 Chief complaint: Altered Mental Status History of present illness: 54-year-old female with known history of bipolar disorder, hypothyroidism, hypertension and diabetes mellitus presents to the emergency room today by EMS having been found on the floor with complaints of generalized weakness versus syncope. Patient indicates that she took some trazodone in order to go to sleep but cannot recall how many tablets she took or the dosage. She was said to be confused upon arrival in the emergency room but became more arousable and was able to respond to questions during the course of her stay in the emergency room. She denies any fever or chills, no chest pain or shortness of breath, no nausea vomiting, no abdominal pain. She denies any headache or dizziness and no diaphoresis. She denies any hematuria or dysuria and denies any cough. Patient denies any sick contacts and no recent travel. Denies any contact with anyone with COVID-19. She was found to be hypoxic upon arrival with O2 saturation of about 86% on room air. Work-up in the emergency room today: Chest x-ray reveals patchy parenchymal opacities in both mid to lower lung zones. Atypical causes of pneumonia including viral pneumonia should be considered. Labs were significant for hyponatremia of 128, hypokalemia 3.2, blood glucose of 388, lactic acid of 2.7, TSH of 34.67 and at free T4 of 0.10. Urinalysis also reveals a UTI. Toxicology screen reveals a Tylenol level of 9.1 CT scan of the head and neck were unremarkable. Patient has been admitted for acute respiratory failure possibly secondary to pneumonia, hyper kalemia, drug overdose and hypoglycemia. Critical care physician has been consulted by the ER physician. Past History Past Medical History: diabetes, GERD, hypertension, other (Bipolar- depression,Hypothyroidism) Past Surgical History: cholecystectomy, Other (Hysterectomy, Tubal Ligation, hernia surgeries x 3, left wrist cyst removal, Brain aneurysm) Social history: smoking (Current daily smoker) Family history: no significant family history Medications and Allergies Allergies Allergy/AdvReac Type Severity Reaction Status Date / Time No Known Allergies Allergy Verified 11/01/15 23:55 Home Medications Medication Instructions Recorded Confirmed Last Taken Type Ibuprofen [Motrin] 800 mg PO Q8HR PRN #30 tablet 05/25/16 Unknown Rx methOCARBAMOL [Robaxin TAB] 500 mg PO BID #20 tab 05/25/16 Unknown Rx traMADoL [Ultram 50 MG tab] 50 mg PO Q6HR PRN #20 tablet 05/25/16 Unknown Rx Azithromycin [Zithromax Tri-Matteo] 500 mg PO DAILY 3 Days #3 tablet 09/11/20 Unknown Rx Active Meds: Active Medications Dextrose (Dextrose 50% In Water (25gm) 50 Ml Syringe) 50 ml IV Q30MIN PRN; Protocol PRN Reason: Hypoglycemia Dextrose (Dextrose 50% In Water (25gm) 50 Ml Syringe) 50 ml IV Q30MIN PRN; Protocol PRN Reason: Hypoglycemia Enoxaparin Sodium (Enoxaparin 40 Mg/0.4 Ml Inj) 40 mg SUB-Q QDAY@2200 AMANDA; Protocol Potassium Chloride (Kcl 10meq/100ml) 10 meq in 100 mls @ 100 mls/hr IV Q1H AMANDA Stop: 09/15/20 23:59 Acetylcysteine 11,775 mg/ (Dextrose) 258.875 mls @ 200 mls/hr IV ONCE ONE Stop: 09/15/20 22:47 Acetylcysteine 3,925 mg/ (Dextrose) 519.625 mls @ 125 mls/hr IV ONCE ONE Stop: 09/16/20 03:09 Acetylcysteine 7,850 mg/ (Dextrose) 1,039.25 mls @ 62.5 mls/hr IV ONCE ONE Stop: 09/16/20 20:37 Sodium Chloride (Nacl 0.9% 1000 Ml) 1,000 mls @ 125 mls/hr IV DIRECT AMANDA Ceftriaxone Sodium (Rocephin/Ns 2 Gm/100 Ml) 2 gm in 100 mls @ 200 mls/hr IV Q24H AMANDA; Protocol Azithromycin (Zithromax/Ns) 500 mg in 250 mls @ 250 mls/hr IV Q24H AMANDA; Protocol Ibuprofen (Ibuprofen 600 Mg Tab) 600 mg PO Q6H PRN PRN Reason: Pain, Mild (1-3) Insulin Human Regular (Insulin Regular, Human 100 Units/1 Ml) 0 units SUB-Q ACHS AMANDA; Protocol Magnesium Hydroxide (Magnesium Hydroxide (Mom) Oral Liqd Udc) 30 ml PO Q4H PRN PRN Reason: Constipation Morphine Sulfate (Morphine 2 Mg/1 Ml Inj) 2 mg IV Q4H PRN PRN Reason: Pain, Moderate (4-6) Morphine Sulfate (Morphine 4 Mg/1 Ml Inj) 4 mg IV Q4H PRN PRN Reason: Pain , Severe (7-10) Naloxone HCl (Naloxone 0.4 Mg/1 Ml Inj) 0.1 mg IV Q2MIN PRN PRN Reason: Res Rate </= 8 or 02 SAT < 92% Ondansetron HCl (Ondansetron 4 Mg/2 Ml Inj) 4 mg IV Q6HR PRN PRN Reason: Nausea Ondansetron HCl (Ondansetron 4 Mg/2 Ml Inj) 4 mg IV Q8H PRN PRN Reason: Nausea And Vomiting Sodium Chloride (Sodium Chloride 0.9% 10 Ml Flush Syringe) 10 ml IV BID AMANDA Sodium Chloride (Sodium Chloride 0.9% 10 Ml Flush Syringe) 10 ml IV PRN PRN PRN Reason: LINE FLUSH Review of Systems Constitutional: lethargy Ears, nose, mouth and throat: no nasal congestion, no sore throat Cardiovascular: no chest pain, no palpitations Respiratory: no cough, no shortness of breath Gastrointestinal: no abdominal pain, no nausea, no vomiting, no diarrhea Genitourinary Female: no pelvic pain, no flank pain, no dysuria, no urinary frequency, no hematuria Musculoskeletal: no neck pain, no low back pain Integumentary: no rash, no pruritis Neurological: confusion, no headaches Psychiatric: no anxiety, no depression Endocrine: no polydipsia, no polyuria, no nocturia Exam - Constitutional Vitals: Temp Pulse Resp BP Pulse Ox 97.7 F 82 14 144/67 95 09/15/20 19:42 09/15/20 19:42 09/15/20 19:42 09/15/20 19:42 09/15/20 18:46 General appearance: Present: no acute distress, well-nourished - EENT Eyes: Present: PERRL, EOM intact. Absent: scleral icterus ENT: hearing intact, clear oral mucosa, dentition normal - Neck Neck: Present: supple, normal ROM - Respiratory Respiratory effort: normal Respiratory: bilateral: diminished - Cardiovascular Rhythm: regular Heart Sounds: Present: S1 & S2. Absent: gallop, systolic murmur, diastolic murmur, rub, click - Extremities Extremities: no ischemia, pulses intact, pulses symmetrical, No edema, normal temperature, normal color, Full ROM Peripheral Pulses: within normal limits - Abdominal General gastrointestinal: Present: soft, non-tender, non-distended, normal bowel sounds. Absent: mass - Integumentary Integumentary: Present: clear, warm, dry. Absent: rash - Musculoskeletal Musculoskeletal: strength equal bilaterally - Psychiatric Psychiatric: appropriate mood/affect, intact judgment & insight, memory intact, cooperative - Neurologic Neurologic: CNII-XII intact, no focal deficits, moves all extremities HEART Score - HEART Score Troponin: Troponin T < 0.010 ng/mL (0.00-0.029) 09/15/20 18:46 Results - Labs CBC & Chem 7: 09/16/20 04:47 09/16/20 04:47 Labs: Abnormal lab results 09/15/20 09/15/20 09/15/20 Range/Units 18:46 18:46 18:46 Hgb 14.4 H (10.1-14.3) gm/dl POC ABG pCO2 (32.0-48.0) mmHg POC ABG pO2 (83-108) mmHg ABG Oxyhemoglobin (94-98) ABG Sodium (136.0-145.0) mmol/L ABG Potassium (3.40-4.50) mmol/L ABG Glucose (65-95) mg/dL Sodium 128 L (137-145) mmol/L Potassium 3.2 L (3.6-5.0) mmol/L Chloride 89.3 L (98-107) mmol/L Glucose 388 H (65-100) mg/dL POC Glucose (70-105) mg/dL Lactic Acid (0.7-2.0) mmol/L Calcium 8.2 L (8.4-10.2) mg/dL AST 69 H (5-40) units/L Ammonia (25-60) umol/L Albumin 3.6 L (3.9-5) g/dL TSH 34.670 H (0.270-4.200) mlU/mL Free T4 (0.76-1.46) ng/dL Arterial Blood Glucose (65-95) mg/dL Salicylates (2.8-20.0) mg/dL Acetaminophen (10.0-30.0) ug/mL 09/15/20 09/15/2021 Range/Units 18:46 18:46 18:46 Hgb (10.1-14.3) gm/dl POC ABG pCO2 (32.0-48.0) mmHg POC ABG pO2 (83-108) mmHg ABG Oxyhemoglobin (94-98) ABG Sodium (136.0-145.0) mmol/L ABG Potassium (3.40-4.50) mmol/L ABG Glucose (65-95) mg/dL Sodium (137-145) mmol/L Potassium (3.6-5.0) mmol/L Chloride (98-107) mmol/L Glucose (65-100) mg/dL POC Glucose (70-105) mg/dL Lactic Acid (0.7-2.0) mmol/L Calcium (8.4-10.2) mg/dL AST (5-40) units/L Ammonia 23.0 L (25-60) umol/L Albumin (3.9-5) g/dL TSH (0.270-4.200) mlU/mL Free T4 (0.76-1.46) ng/dL Arterial Blood Glucose (65-95) mg/dL Salicylates < 0.3 L (2.8-20.0) mg/dL Acetaminophen 9.1 L (10.0-30.0) ug/mL 09/15/20 09/15/20 09/15/20 Range/Units 19:38 19:40 19:43 Hgb (10.1-14.3) gm/dl POC ABG pCO2 (32.0-48.0) mmHg POC ABG pO2 (83-108) mmHg ABG Oxyhemoglobin (94-98) ABG Sodium (136.0-145.0) mmol/L ABG Potassium (3.40-4.50) mmol/L ABG Glucose (65-95) mg/dL Sodium (137-145) mmol/L Potassium (3.6-5.0) mmol/L Chloride (98-107) mmol/L Glucose (65-100) mg/dL POC Glucose 398 H (70-105) mg/dL Lactic Acid 2.70 H* (0.7-2.0) mmol/L Calcium (8.4-10.2) mg/dL AST (5-40) units/L Ammonia (25-60) umol/L Albumin (3.9-5) g/dL TSH (0.270-4.200) mlU/mL Free T4 0.10 L (0.76-1.46) ng/dL Arterial Blood Glucose (65-95) mg/dL Salicylates (2.8-20.0) mg/dL Acetaminophen (10.0-30.0) ug/mL 09/15/20 Range/Units 20:02 Hgb (10.1-14.3) gm/dl POC ABG pCO2 31.1 L (32.0-48.0) mmHg POC ABG pO2 46.9 L (83-108) mmHg ABG Oxyhemoglobin 82.8 L (94-98) ABG Sodium 129.8 L (136.0-145.0) mmol/L ABG Potassium 3.1 L (3.40-4.50) mmol/L ABG Glucose 374 H (65-95) mg/dL Sodium (137-145) mmol/L Potassium (3.6-5.0) mmol/L Chloride (98-107) mmol/L Glucose (65-100) mg/dL POC Glucose (70-105) mg/dL Lactic Acid (0.7-2.0) mmol/L Calcium (8.4-10.2) mg/dL AST (5-40) units/L Ammonia (25-60) umol/L Albumin (3.9-5) g/dL TSH (0.270-4.200) mlU/mL Free T4 (0.76-1.46) ng/dL Arterial Blood Glucose 374 H (65-95) mg/dL Salicylates (2.8-20.0) mg/dL Acetaminophen (10.0-30.0) ug/mL Assessment and Plan - Patient Problems (1) Acute respiratory failure with hypoxia Current Visit: Yes Status: Acute Plan to address problem: Possibly secondary to underlying pneumonia and drug overdose. Patient to be admitted into the intensive care unit for close monitoring We will keep O2 saturation greater or equal to 94%. (2) Acute encephalopathy Current Visit: Yes Status: Acute Plan to address problem: Possibly secondary to drug overdose Poison control has been notified and will follow recommendations as indicated. (3) Drug ingestion Current Visit: Yes Status: Acute Plan to address problem: Patient took trazodone in order to go to sleep. It is unclear whether this was an intentional overdose. However patient has known history of mental illness. Consult will be placed to mental health for evaluation. (4) Hyperglycemia Current Visit: Yes Status: Acute Plan to address problem: Will monitor Accu-Cheks closely. Patient placed on sliding scale insulin. (5) Hypokalemia Current Visit: Yes Status: Acute Plan to address problem: Potassium will be repleted and will monitor chemistry. (6) Hypothyroidism Current Visit: Yes Status: Acute Plan to address problem: Patient placed on levothyroxine . We will monitor TSH. (7) Pneumonia Current Visit: Yes Status: Acute Plan to address problem: Patient has been placed on empiric IV antibiotics. We will also place on IV steroid. Patient will be ruled out for COVID-19. Consult placed to infectious disease for evaluation. (8) UTI (urinary tract infection) Current Visit: Yes Status: Acute Plan to address problem: We will continue on empiric IV antibiotics. We will await urine culture result. (9) DVT prophylaxis Current Visit: Yes Status: Acute Plan to address problem: Patient placed on subcutaneous Lovenox. (10) Full code status Current Visit: Yes Status: Acute Plan to address problem: Patient is full code.
[2020-09-15] MEDS: POTASSIUM CHLORIDE 10 MEQ 10 MEQ/100 ML BAG IV SCH (23:35)
[2020-09-16] MEDS: POTASSIUM CHLORIDE 10 MEQ 10 MEQ/100 ML BAG IV SCH (00:39)
[2020-09-16 01:55] LABS: Amphetamine Screen,Urine PRESUMPTIVE NEGATIVE; Benzodiazepines Screen,Urine PRESUMPTIVE NEGATIVE; Cannabinoid Screen,Urine PRESUMPTIVE NEGATIVE; Cocaine Screen,Urine PRESUMPTIVE NEGATIVE; Methadone Screen,Urine PRESUMPTIVE NEGATIVE; Opiate Screen,Urine PRESUMPTIVE NEGATIVE
[2020-09-16 01:57] LABS: Bacteria,Urine 3+ /HPF (Negative); Bilirubin,Urine NEG (Negative); Blood,Urine LG (Negative); Color,Urine Yellow (Yellow); Urobilinogen,Urine < 2.0 mg/dL (<2.0)
[2020-09-16 01:58] LABS: WBC,Urine > 182.0 /HPF (0.0-6.0)
[2020-09-16] MEDS ORDERED: ACETADOTE IV ONE (04:00)
[2020-09-16] MEDS ORDERED: DEXTROSE 5% IV ONE (04:00)
[2020-09-16] MEDS ORDERED: WATER IV ONE (04:00)
[2020-09-16 05:45] LABS: Monocytes # (Auto) 0.7 K/mm3 (0.0-0.8); Monocytes % (Auto) 6.6 % (0.0-7.3)
[2020-09-16 06:01] LABS: INR 1.1 (0.87-1.13)
[2020-09-16 06:04] LABS: BUN/Creatinine Ratio 14; Blood Urea Nitrogen 11 mg/dL (7-17); Calcium 8.3 mg/dL (8.4-10.2); Hemolysis Index 5
[2020-09-16 06:25] LABS: Basophils % (Auto) 0.4 % (0.0-1.8); Hematocrit 41.2 % (30.3-42.9); Hemoglobin 14.8 gm/dl (10.1-14.3); Lymphocytes # (Auto) 0.8 K/mm3 (1.2-5.4); Lymphocytes % (Auto) 7.3 % (13.4-35.0); Mean Corpuscular HGB Conc 36 % (30-34); Mean Corpuscular Volume 91 fl (79-97); Platelet Count 163 K/mm3 (140-440); Red Blood Count 4.53 M/mm3 (3.65-5.03); Red Cell Distribution Width 14.2 % (13.2-15.2)
[2020-09-16] MEDS: LEVOTHYROXINE 100 MCG INJ IV SCH (07:02)
[2020-09-16] MEDS: INSULIN REGULAR, HUMAN 100 UNITS/1 ML SUB-Q SCH ×4 (07:50→22:55)
[2020-09-16] MEDS ORDERED: INSULIN REGULAR, HUMAN 100 UNITS/1 ML SUB-Q ONE (08:29)
[2020-09-16] MEDS ORDERED: INSULIN NPH, HUMAN 100 UNIT/1 ML SUB-Q ONE (09:00)
[2020-09-16] MEDS: dexAMETHasone 4 MG/ML VIAL IV SCH (10:00)
[2020-09-16] MEDS: cefTRIAXone/NS 2 GM/100 ML 2 GM/100 ML BAG IV SCH (10:15)
--- NOTE | 2020-09-16 11:33 | Consultation ---
History of Present Illness Consult date: 09/16/20 Requesting physician: TABITHA MIGUEL Reason for consult: pneumonia, other (Drug OD) History of present illness: PCCM CONSULT NOTE (Full dictation # [id number]) Please see dictated notes for full details Past History Past Medical History: diabetes, GERD, hypertension, other (Bipolar- depression,Hypothyroidism) Past Surgical History: cholecystectomy, Other (Hysterectomy, Tubal Ligation, hernia surgeries x 3, left wrist cyst removal, Brain aneurysm) Social history: smoking (Current daily smoker) Family history: no significant family history Medications and Allergies Allergies Allergy/AdvReac Type Severity Reaction Status Date / Time No Known Allergies Allergy Verified 11/01/15 23:55 Home Medications Medication Instructions Recorded Confirmed Last Taken Type Ibuprofen [Motrin] 800 mg PO Q8HR PRN #30 tablet 05/25/16 Unknown Rx methOCARBAMOL [Robaxin TAB] 500 mg PO BID #20 tab 05/25/16 Unknown Rx traMADoL [Ultram 50 MG tab] 50 mg PO Q6HR PRN #20 tablet 05/25/16 Unknown Rx Azithromycin [Zithromax Tri-Matteo] 500 mg PO DAILY 3 Days #3 tablet 09/11/20 Unknown Rx Active Meds: Active Medications Dexamethasone (Dexamethasone 4 Mg/Ml Vial) 6 mg IV Q24HR AMANDA Dextrose (Dextrose 50% In Water (25gm) 50 Ml Syringe) 50 ml IV Q30MIN PRN; Protocol PRN Reason: Hypoglycemia Enoxaparin Sodium (Enoxaparin 40 Mg/0.4 Ml Inj) 40 mg SUB-Q QDAY@2200 AMANDA; Prot ocol Acetylcysteine 7,850 mg/ (Dextrose) 1,039.25 mls @ 62.5 mls/hr IV ONCE ONE Stop: 09/16/20 20:37 Last Admin: 09/16/20 04:19 Dose: 62.5 mls/hr Documented by: Sodium Chloride (Nacl 0.9% 1000 Ml) 1,000 mls @ 125 mls/hr IV DIRECT AMANDA Ceftriaxone Sodium (Rocephin/Ns 2 Gm/100 Ml) 2 gm in 100 mls @ 200 mls/hr IV Q24HR AMANDA; Protocol Azithromycin (Zithromax/Ns) 500 mg in 250 mls @ 250 mls/hr IV Q24H AMANDA; Protocol Ibuprofen (Ibuprofen 600 Mg Tab) 600 mg PO Q6H PRN PRN Reason: Pain, Mild (1-3) Insulin Human Regular (Insulin Regular, Human 100 Units/1 Ml) 0 units SUB-Q ACHS [facility]; Protocol Last Admin: 09/16/20 07:50 Dose: 8 units Documented by: Levothyroxine Sodium (Levothyroxine 100 Mcg Inj) 100 mcg IV DAILY@0600 [facility] Last Admin: 09/16/20 07:02 Dose: 100 mcg Documented by: Magnesium Hydroxide (Magnesium Hydroxide (Mom) Oral Liqd Udc) 30 ml PO Q4H PRN PRN Reason: Constipation Morphine Sulfate (Morphine 2 Mg/1 Ml Inj) 2 mg IV Q4H PRN PRN Reason: Pain, Moderate (4-6) Morphine Sulfate (Morphine 4 Mg/1 Ml Inj) 4 mg IV Q4H PRN PRN Reason: Pain , Severe (7-10) Naloxone HCl (Naloxone 0.4 Mg/1 Ml Inj) 0.1 mg IV Q2MIN PRN PRN Reason: Res Rate </= 8 or 02 SAT < 92% Ondansetron HCl (Ondansetron 4 Mg/2 Ml Inj) 4 mg IV Q8H PRN PRN Reason: Nausea And Vomiting Sodium Chloride (Sodium Chloride 0.9% 10 Ml Flush Syringe) 10 ml IV BID AMANDA Sodium Chloride (Sodium Chloride 0.9% 10 Ml Flush Syringe) 10 ml IV PRN PRN PRN Reason: LINE FLUSH Physical Examination Vital signs: Vital Signs Pulse Resp BP Pulse Ox 71 28 H 142/85 100 09/15/20 15:27 09/15/20 15:27 09/15/20 15:27 09/15/20 15:27 Results - Laboratory Findings CBC and BMP: 09/16/20 04:47 09/16/20 04:47 ABG ABG pH 7.420 (7.320-7.450) 09/15/20 20:02 POC ABG pCO2 31.1 mmHg (32.0-48.0) L 09/15/20 20:02 POC ABG pO2 46.9 mmHg (83-108) L 09/15/20 20:02 POC ABG HCO3 19.7 09/15/20 20:02 ABG O2 Saturation 84.1 (0-100) 09/15/20 20:02 PT/INR, D-dimer PT 14.7 Sec. (12.2-14.9) 09/16/20 04:47 INR 1.10 (0.87-1.13) 09/16/20 04:47 Abnormal lab findings: Abnormal Labs 09/15/20 09/15/20 09/15/20 18:46 18:46 18:46 Hgb 14.4 H MCH MCHC Lymph % (Auto) Lymph # (Auto) Seg Neutrophils % Seg Neutrophils # POC ABG pCO2 POC ABG pO2 ABG Oxyhemoglobin ABG Sodium ABG Potassium ABG Glucose Sodium 128 L Potassium 3.2 L Chloride 89.3 L Glucose 388 H POC Glucose Lactic Acid Calcium 8.2 L AST 69 H Ammonia Albumin 3.6 L TSH 34.670 H Free T4 Arterial Blood Glucose Urine WBC (Auto) Salicylates Acetaminophen 09/15/20 09/15/20 09/15/20 18:46 18:46 18:46 Hgb MCH MCHC Lymph % (Auto) Lymph # (Auto) Seg Neutrophils % Seg Neutrophils # POC ABG pCO2 POC ABG pO2 ABG Oxyhemoglobin ABG Sodium ABG Potassium ABG Glucose Sodium Potassium Chloride Glucose POC Glucose Lactic Acid Calcium AST Ammonia 23.0 L Albumin TSH Free T4 Arterial Blood Glucose Urine WBC (Auto) Salicylates < 0.3 L Acetaminophen 9.1 L 09/15/20 09/15/20 09/15/20 19:38 19:40 19:43 Hgb MCH MCHC Lymph % (Auto) Lymph # (Auto) Seg Neutrophils % Seg Neutrophils # POC ABG pCO2 POC ABG pO2 ABG Oxyhemoglobin ABG Sodium ABG Potassium ABG Glucose Sodium Potassium Chloride Glucose POC Glucose 398 H Lactic Acid 2.70 H* Calcium AST Ammonia Albumin TSH Free T4 0.10 L Arterial Blood Glucose Urine WBC (Auto) Salicylates Acetaminophen 09/15/20 09/15/20 09/16/20 20:02 Unknown 04:47 Hgb 14.8 H MCH 33 H MCHC 36 H Lymph % (Auto) 7.3 L Lymph # (Auto) 0.8 L Seg Neutrophils % 85.7 H Seg Neutrophils # 8.9 H POC ABG pCO2 31.1 L POC ABG pO2 46.9 L ABG Oxyhemoglobin 82.8 L ABG Sodium 129.8 L ABG Potassium 3.1 L ABG Glucose 374 H Sodium Potassium Chloride Glucose POC Glucose Lactic Acid Calcium AST Ammonia Albumin TSH Free T4 Arterial Blood Glucose 374 H Urine WBC (Auto) > 182.0 H Salicylates Acetaminophen 09/16/20 09/16/20 04:47 07:20 Hgb MCH MCHC Lymph % (Auto) Lymph # (Auto) Seg Neutrophils % Seg Neutrophils # POC ABG pCO2 POC ABG pO2 ABG Oxyhemoglobin ABG Sodium ABG Potassium ABG Glucose Sodium 135 L D Potassium Chloride 94.1 L Glucose 418 H POC Glucose 403 H Lactic Acid Calcium 8.3 L AST Ammonia Albumin TSH Free T4 Arterial Blood Glucose Urine WBC (Auto) Salicylates Acetaminophen
--- NOTE | 2020-09-16 14:50 | Consultation ---
History of Present Illness - Reason for Consult Consult date: 09/16/20 - History of Present Illness 54-year-old female past medical history bipolar, hypothyroidism, hypertension, diabetes presented to hospital after being found on the floor by EMS. She had been complaining of weakness after taking some trazodone. She otherwise denies any symptoms. Afebrile since admission with a white count 10.4. Normal renal function. Blood cultures no growth so far. Currently on ceftriaxone azithromycin with dexamethasone. Imaging personally reviewed: Chest x-ray: Patchy parenchymal opacities Past History Past Medical History: diabetes, GERD, hypertension, other (Bipolar- depression,Hypothyroidism) Past Surgical History: cholecystectomy, Other (Hysterectomy, Tubal Ligation, hernia surgeries x 3, left wrist cyst removal, Brain aneurysm) Social history: smoking (Current daily smoker) Family history: no significant family history Medications and Allergies Allergies Allergy/AdvReac Type Severity Reaction Status Date / Time No Known Allergies Allergy Verified 11/01/15 23:55 Home Medications Medication Instructions Recorded Confirmed Last Taken Type Ibuprofen [Motrin] 800 mg PO Q8HR PRN #30 tablet 05/25/16 Unknown Rx methOCARBAMOL [Robaxin TAB] 500 mg PO BID #20 tab 05/25/16 Unknown Rx traMADoL [Ultram 50 MG tab] 50 mg PO Q6HR PRN #20 tablet 05/25/16 Unknown Rx Azithromycin [Zithromax Tri-Matteo] 500 mg PO DAILY 3 Days #3 tablet 09/11/20 Unknown Rx Active Meds: Active Medications Dexamethasone (Dexamethasone 4 Mg/Ml Vial) 6 mg IV Q24HR [facility] Dextrose (Dextrose 50% In Water (25gm) 50 Ml Syringe) 50 ml IV Q30MIN PRN; Protocol PRN Reason: Hypoglycemia Enoxaparin Sodium (Enoxaparin 40 Mg/0.4 Ml Inj) 40 mg SUB-Q QDAY@2200 [facility]; Protocol Acetylcysteine 7,850 mg/ (Dextrose) 1,039.25 mls @ 62.5 mls/hr IV ONCE ONE Stop: 09/16/20 20:37 Last Admin: 09/16/20 04:19 Dose: 62.5 mls/hr Documented by: Sodium Chloride (Nacl 0.9% 1000 Ml) 1,000 mls @ 125 mls/hr IV DIRECT [facility]ANDA Ceftriaxone Sodium (Rocephin/Ns 2 Gm/100 Ml) 2 gm in 100 mls @ 200 mls/hr IV Q24HR [facility]; Protocol Azithromycin (Zithromax/Ns) 500 mg in 250 mls @ 250 mls/hr IV Q24H [facility]; Protocol Ibuprofen (Ibuprofen 600 Mg Tab) 600 mg PO Q6H PRN PRN Reason: Pain, Mild (1-3) Insulin Human Regular (Insulin Regular, Human 100 Units/1 Ml) 0 units SUB-Q ACHS [facility]; Protocol Last Admin: 09/16/20 11:52 Dose: 8 units Documented by: Levothyroxine Sodium (Levothyroxine 100 Mcg Inj) 100 mcg IV DAILY@0600 [facility] Last Admin: 09/16/20 07:02 Dose: 100 mcg Documented by: Magnesium Hydroxide (Magnesium Hydroxide (Mom) Oral Liqd Udc) 30 ml PO Q4H PRN PRN Reason: Constipation Morphine Sulfate (Morphine 2 Mg/1 Ml Inj) 2 mg IV Q4H PRN PRN Reason: Pain, Moderate (4-6) Morphine Sulfate (Morphine 4 Mg/1 Ml Inj) 4 mg IV Q4H PRN PRN Reason: Pain , Severe (7-10) Naloxone HCl (Naloxone 0.4 Mg/1 Ml Inj) 0.1 mg IV Q2MIN PRN PRN Reason: Res Rate </= 8 or 02 SAT < 92% Ondansetron HCl (Ondansetron 4 Mg/2 Ml Inj) 4 mg IV Q8H PRN PRN Reason: Nausea And Vomiting Sodium Chloride (Sodium Chloride 0.9% 10 Ml Flush Syringe) 10 ml IV BID [facility] Last Admin: 09/16/20 13:51 Dose: 10 ml Documented by: Sodium Chloride (Sodium Chloride 0.9% 10 Ml Flush Syringe) 10 ml IV PRN PRN PRN Reason: LINE FLUSH Review of Systems ROS unobtainable: due to mental status Physical Examination - Physical Exam Narrative exam: Physical exam deferred to reduce risk of transmission of COVID-19. Please refer to primary team's note. - Constitutional Vitals: Vital Signs Temp Pulse Resp BP Pulse Ox 97.7 F 87 17 145/60 89 09/15/20 19:42 09/16/20 14:00 09/16/20 14:00 09/16/20 14:00 09/16/20 12:46 Temperature -Last 24 Hours Temperature 97.7 F Results - Labs CBC & Chem 7: 09/16/20 04:47 09/16/20 04:47 Labs: Abnormal lab results 09/15/20 09/15/20 09/15/20 Range/Units 18:46 18:46 18:46 Hgb 14.4 H (10.1-14.3) gm/dl MCH (28-32) pg MCHC (30-34) % Lymph % (Auto) (13.4-35.0) % Lymph # (Auto) (1.2-5.4) K/mm3 Seg Neutrophils % (40.0-70.0) % Seg Neutrophils # (1.8-7.7) K/mm3 POC ABG pCO2 (32.0-48.0) mmHg POC ABG pO2 (83-108) mmHg ABG Oxyhemoglobin (94-98) ABG Sodium (136.0-145.0) mmol/L ABG Potassium (3.40-4.50) mmol/L ABG Glucose (65-95) mg/dL Sodium 128 L (137-145) mmol/L Potassium 3.2 L (3.6-5.0) mmol/L Chloride 89.3 L (98-107) mmol/L Glucose 388 H (65-100) mg/dL POC Glucose (70-105) mg/dL Lactic Acid (0.7-2.0) mmol/L Calcium 8.2 L (8.4-10.2) mg/dL AST 69 H (5-40) units/L Ammonia (25-60) umol/L Albumin 3.6 L (3.9-5) g/dL TSH 34.670 H (0.270-4.200) mlU/mL Free T4 (0.76-1.46) ng/dL Arterial Blood Glucose (65-95) mg/dL Urine WBC (Auto) (0.0-6.0) /HPF Salicylates (2.8-20.0) mg/dL Acetaminophen (10.0-30.0) ug/mL 09/15/20 09/15/20 09/15/20 Range/Units 18:46 18:46 18:46 Hgb (10.1-14.3) gm/dl MCH (28-32) pg MCHC (30-34) % Lymph % (Auto) (13.4-35.0) % Lymph # (Auto) (1.2-5.4) K/mm3 Seg Neutrophils % (40.0-70.0) % Seg Neutrophils # (1.8-7.7) K/mm3 POC ABG pCO2 (32.0-48.0) mmHg POC ABG pO2 (83-108) mmHg ABG Oxyhemoglobin (94-98) ABG Sodium (136.0-145.0) mmol/L ABG Potassium (3.40-4.50) mmol/L ABG Glucose (65-95) mg/dL Sodium (137-145) mmol/L Potassium (3.6-5.0) mmol/L Chloride (98-107) mmol/L Glucose (65-100) mg/dL POC Glucose (70-105) mg/dL Lactic Acid (0.7-2.0) mmol/L Calcium (8.4-10.2) mg/dL AST (5-40) units/L Ammonia 23.0 L (25-60) umol/L Albumin (3.9-5) g/dL TSH (0.270-4.200) mlU/mL Free T4 (0.76-1.46) ng/dL Arterial Blood Glucose (65-95) mg/dL Urine WBC (Auto) (0.0-6.0) /HPF Salicylates < 0.3 L (2.8-20.0) mg/dL Acetaminophen 9.1 L (10.0-30.0) ug/mL 09/15/20 09/15/20 09/15/20 Range/Units 19:38 19:40 19:43 Hgb (10.1-14.3) gm/dl MCH (28-32) pg MCHC (30-34) % Lymph % (Auto) (13.4-35.0) % Lymph # (Auto) (1.2-5.4) K/mm3 Seg Neutrophils % (40.0-70.0) % Seg Neutrophils # (1.8-7.7) K/mm3 POC ABG pCO2 (32.0-48.0) mmHg POC ABG pO2 (83-108) mmHg ABG Oxyhemoglobin (94-98) ABG Sodium (136.0-145.0) mmol/L ABG Potassium (3.40-4.50) mmol/L ABG Glucose (65-95) mg/dL Sodium (137-145) mmol/L Potassium (3.6-5.0) mmol/L Chloride (98-107) mmol/L Glucose (65-100) mg/dL POC Glucose 398 H (70-105) mg/dL Lactic Acid 2.70 H* (0.7-2.0) mmol/L Calcium (8.4-10.2) mg/dL AST (5-40) units/L Ammonia (25-60) umol/L Albumin (3.9-5) g/dL TSH (0.270-4.200) mlU/mL Free T4 0.10 L (0.76-1.46) ng/dL Arterial Blood Glucose (65-95) mg/dL Urine WBC (Auto) (0.0-6.0) /HPF Salicylates (2.8-20.0) mg/dL Acetaminophen (10.0-30.0) ug/mL 09/15/20 09/15/20 09/16/20 Range/Units 20:02 Unknown 04:47 Hgb 14.8 H (10.1-14.3) gm/dl MCH 33 H (28-32) pg MCHC 36 H (30-34) % Lymph % (Auto) 7.3 L (13.4-35.0) % Lymph # (Auto) 0.8 L (1.2-5.4) K/mm3 Seg Neutrophils % 85.7 H (40.0-70.0) % Seg Neutrophils # 8.9 H (1.8-7.7) K/mm3 POC ABG pCO2 31.1 L (32.0-48.0) mmHg POC ABG pO2 46.9 L (83-108) mmHg ABG Oxyhemoglobin 82.8 L (94-98) ABG Sodium 129.8 L (136.0-145.0) mmol/L ABG Potassium 3.1 L (3.40-4.50) mmol/L ABG Glucose 374 H (65-95) mg/dL Sodium (137-145) mmol/L Potassium (3.6-5.0) mmol/L Chloride (98-107) mmol/L Glucose (65-100) mg/dL POC Glucose (70-105) mg/dL Lactic Acid (0.7-2.0) mmol/L Calcium (8.4-10.2) mg/dL AST (5-40) units/L Ammonia (25-60) umol/L Albumin (3.9-5) g/dL TSH (0.270-4.200) mlU/mL Free T4 (0.76-1.46) ng/dL Arterial Blood Glucose 374 H (65-95) mg/dL Urine WBC (Auto) > 182.0 H (0.0-6.0) /HPF Salicylates (2.8-20.0) mg/dL Acetaminophen (10.0-30.0) ug/mL 09/16/20 09/16/20 09/16/20 Range/Units 04:47 07:20 11:43 Hgb (10.1-14.3) gm/dl MCH (28-32) pg MCHC (30-34) % Lymph % (Auto) (13.4-35.0) % Lymph # (Auto) (1.2-5.4) K/mm3 Seg Neutrophils % (40.0-70.0) % Seg Neutrophils # (1.8-7.7) K/mm3 POC ABG pCO2 (32.0-48.0) mmHg POC ABG pO2 (83-108) mmHg ABG Oxyhemoglobin (94-98) ABG Sodium (136.0-145.0) mmol/L ABG Potassium (3.40-4.50) mmol/L ABG Glucose (65-95) mg/dL Sodium 135 L D (137-145) mmol/L Potassium (3.6-5.0) mmol/L Chloride 94.1 L (98-107) mmol/L Glucose 418 H (65-100) mg/dL POC Glucose 403 H 417 H (70-105) mg/dL Lactic Acid (0.7-2.0) mmol/L Calcium 8.3 L (8.4-10.2) mg/dL AST (5-40) units/L Ammonia (25-60) umol/L Albumin (3.9-5) g/dL TSH (0.270-4.200) mlU/mL Free T4 (0.76-1.46) ng/dL Arterial Blood Glucose (65-95) mg/dL Urine WBC (Auto) (0.0-6.0) /HPF Salicylates (2.8-20.0) mg/dL Acetaminophen (10.0-30.0) ug/mL Assessment and Plan Cultures: Blood culture no growth so far Covid PUI pending A/P: 54-year-old female past medical history bipolar, hypothyroidism, hypertension, diabetes now with: #Acute hypoxic respiratory failure: Likely secondary to pneumonia, bacterial/aspiration versus viral. #Covid PUI: Follow-up PCR #Bilateral pneumonia #Drug overdose: With trazodone Recs: -Follow Covid PCR -Continue ceftriaxone and azithromycin. -Steroids per pulmonary -If Covid positive start remdesivir -Order procalcitonin -Follow-up culture data Thank you for the consult, we will continue to follow. MD [facility] O: [phone] F: [phone]
--- NOTE | 2020-09-16 18:08 | Electrocardiograph Report ---
[facility] Test Date: 2020-09-15 Test Time: 18:42:34 Pat Name: JOSE GALINDO Department: Room: [facility] Gender: F Chief Minister: [id number] : 1965 Requested By: TABITHA MIGUEL Order Number: [id number] Reading MD: Alicia Lopez Measurements Intervals [place] Rate: 82 P: 48 AR: 222 QRS: -10 QRSD: 103 T: 60 QT: 451 QTc: 527 Interpretive Statements Sinus rhythm Prolonged AR interval Prolonged QT interval Compared to ECG 09/11/2020 00:19:01 No significant change Electronically Signed On 09-16-2020 18:08:17 EDT by Alicia Lopez
[2020-09-16] MEDS ORDERED: REMDESIVIR 200 MG in SODIUM CHLORIDE 0.9% 250ML 250 ML IV ONE (21:24)
[2020-09-16] MEDS ORDERED: DEXTROSE 50% IN WATER (25GM) 50 ML SYRINGE IV PRN (21:24)
[2020-09-16] MEDS ORDERED: AZITHROMYCIN/NS 500 MG/250 ML 500 MG/250 ML BAG IV SCH (22:00)
[2020-09-16 22:29] LABS: C-Reactive Protein 6.8 mg/dL (0.00-1.30)
[2020-09-16 22:31] LABS: Alanine Aminotransferase 39 units/L (7-56); Albumin 3.7 g/dL (3.9-5); Blood Urea Nitrogen 9 mg/dL (7-17); Calcium 8.6 mg/dL (8.4-10.2); Hemolysis Index 7
[2020-09-16 22:32] LABS: BUN/Creatinine Ratio 15
[2020-09-16] MEDS: ENOXAPARIN 40 MG/0.4 ML INJ SUB-Q SCH (22:55)
[2020-09-16] MEDS: SODIUM CHLORIDE 0.9% 50 ML IVPB IV SCH (22:56)
--- NOTE | 2020-09-17 02:04 | Consultation ---
DATE OF CONSULTATION: 09/16/2020 PULMONARY CRITICAL CARE CONSULTATION CONSULTING PHYSICIAN: Dr. Brady. REASON FOR CONSULTATION: Acute encephalopathy, altered mental status, multiorgan failure, and possible drug overdose. CHIEF COMPLAINT AND HISTORY OF PRESENT ILLNESS: The patient is a 54-year-old female with past medical history significant amongst other things for a diagnosis of depression, bipolar disorder as well as insulin-dependent diabetes, who was apparently in the hospital a few days earlier, started on azithromycin for right upper lobe pneumonia. She was brought back into the ER yesterday after EMS received a call that she had been found on the floor. She mentioned that she took her trazodone on the day of presentation to go to sleep. She states she only took one trazodone and then she was not sure how many she took. She was not sure of mg. She had denied any homicidality or suicidality. She denied any chest pains, abdominal pains or shortness of breath, hallucinations, any real localizing symptoms. They report that the patient had a bowel movement on herself. She had mentioned that occurs occasionally when she gets sleepy. As part of the evaluation, it was unclear if the patient had also taken a significant amount of Tylenol. After review of her labs, x-ray that showed pulmonary infiltrates, review of her home medications and out of an abundance of caution, patient was treated as a possible Tylenol overdose. Seems like she was started on acetylcysteine, especially in light of the elevated serum Tylenol levels. For close observation and for fear of decompensation, intensive care unit admission was requested. However, when I stopped by to see her, she was doing better. She still was in the emergency room at the time. Repeat Tylenol level had come back low. She was more coherent and hemodynamically stable. She denied any chest pain. She was not really sure why she was in the hospital. She felt like she wanted to go home. Now, with regards to tobacco use/abuse history, she gives about a 20+ pack year tobacco smoking history, but now down to half a pack a day. This is the much of the history of presentation as I have. PAST MEDICAL HISTORY: Again, diabetes. She is obese, history of gastroesophageal reflux disease, hypertension, bipolar disease, and hypothyroidism. PAST SURGICAL HISTORY: She has had a cholecystectomy. She has had a hysterectomy. She has had herniorrhaphies. MEDICATIONS: She was on at the time I stopped by to see according to the medication administration record included the following: Zithromax 500 mg IV daily, Rocephin 2 grams IV daily, Decadron 6 mg IV q. 24 hours, Lovenox 40 mg subcu daily, ibuprofen 600 mg p.o. q. 6 hours p.r.n. mild pain or fevers. Insulin via sliding scale, Levoxyl 100 mcg IV daily, morphine sulfate 2 mg IV q. 4 hours p.r.n. moderate pain and 4 mg IV q. 4 hours p.r.n. severe pain, Zofran 4 mg IV q. 8 hours p.r.n. nausea and vomiting. ALLERGIES: No known drug allergies. DIET: Obese lady. Denies acute weight loss or gain in the preceding few weeks to months. FAMILY AND SOCIAL HISTORY: Lives in the community, 10+ pack year tobacco smoking history. Denies alcohol or illicit drug use or abuse. FAMILY HISTORY: Otherwise, noncontributory. REVIEW OF SYSTEMS: No overt loss of consciousness. She was drowsy. Denies gross hematochezia or melena. Denies gross hematuria or dysuria. Denies hematemesis. Denies hemoptysis. Denies palpitations. She denied acute chest pain. She denies suicidal ideation. No polydipsia. No polyuria. Complete 13 system review of systems was obtained as best as I could. Pertinent positives and/or negatives as in body of history above, otherwise they are noncontributory. PHYSICAL EXAMINATION: VITAL SIGNS: At presentation in the emergency room, review of the vital signs shows that she was afebrile, temperature was 97.7 degrees Fahrenheit, pulse was 71, respiratory rate 28, blood pressure 142/85, O2 sats 100%, inspired oxygen concentration at that time was not recorded. When I stopped by to see her, O2 sats were 98% and that was on 5 liters nasal cannula. GENERAL: She is a middle-aged obese lady. Normocephalic, atraumatic, talking to me with full sentences, but with mildly increased respiratory effort at rest. HEAD, EYES, EARS, NOSE, THROAT: Anicteric. No conjunctival erythema. Oropharynx was dry. NECK: No gross jugular venous distention. No thyromegaly. Grossly, there were no palpable lymph nodes in the supraclavicular or submandibular lymph node chains. LUNGS: Auscultation of both lung cavanaugh significant for diminished bilateral breath sounds. No rales. No wheezing. HEART: Sounds 1 and 2 are heard, regular rate and rhythm at the time of my evaluation without overt rubs or murmurs. ABDOMEN: Soft, full, protuberant. Bowel sounds are positive, nontender, no palpable hepatosplenomegaly. EXTREMITIES: Without overt digital clubbing or cyanosis. No pedal edema. Pedal pulses are 2+ bilaterally. NEUROLOGIC: Pupils are equal, round, about 4 mm, reactive to light. Extraocular muscle movements were intact. She moves all 4 extremities spontaneously. SKIN: Normal turgor in the areas examined without overt cellulitis or rash. Please see the wound care nurses' notes for full description of her skin. PSYCHIATRIC: Mood was normal. Affect was a little bit flat. She appeared to have intact judgment and insight. LABORATORY DATA: From my review are as follows: Admission white cell count 9700, hemoglobin 14.4, hematocrit 42.3, and platelet count 153. INR 0.98. ABG showed a pH of 7.42, pCO2 of 31 and a pO2 of 47 that was on room air at that time. Serum sodium was 128, potassium 3.2, chloride was 89, bicarbonate was 23, BUN 12, creatinine 0.8, glucose was 388. Lactic acid level was 2.7, AST of 69. Albumin low at 3.6, otherwise liver function test within normal limits. Free T4 was low at 0.1 and TSH was elevated at 34.7. Urinalysis showed large leukocyte esterase, greater than 182 white cells per high power field. Drug levels; Aspirin, Tylenol, alcohol levels within normal limits. Urine drug screen otherwise presumed negative. Coronavirus PCR has come back positive. Two sets of blood cultures, no growth to date. A chest x-ray has been reviewed. I have also reviewed the radiologist's interpretation. Main finding right mid lung zone infiltrate and left lower lobe infiltrate, borderline cardiomegaly. No gross pneumothorax. No gross bony fracture. Compared to a chest x-ray from about a week ago, the infiltrates are progressing. A CT of the head was done as well as a CT of the neck. CT of the head, no focal mass, hemorrhage, hydrocephalus, or acute/large central infarct. On CT of the head and CT of the neck, no signs of acute bony trauma of the C-spine. ASSESSMENT: 1. Acute toxic metabolic encephalopathy. 2. Severe sepsis. 3. Community acquired pneumonia. 4. Pneumonia, likely due to coronavirus-19 infection. 5. Acute hypoxemic respiratory failure. 6. Hyponatremia at presentation. 7. Diabetes, poorly controlled. 8. Lactic acidosis. 9. Urinary tract infection. 10. Tobacco use disorder. PLAN: She is doing better clinically. I am not so sure that she needs continued N-acetylcysteine and I believe that protocol is going to be stopped. I will repeat Tylenol level. Oxygen will be weaned to keep sats greater than or equal to about 92%. Aspiration precautions will be maintained. I do agree with contact and airborne isolation as well as systemic steroids for oxygen dependent and severe COVID infection. With her renal function, she probably will benefit from remdesivir therapy. I will defer to the infectious disease physician in terms of beginning that medication though. For now, we will continue community-acquired pneumonia empiric therapy with Rocephin and Zithromax. A gentle volume resuscitation and conservative volume management strategies. She is appropriately on DVT prophylaxis. I will be putting her on GI prophylaxis. We will continue thyroid replacement therapy. Probably, she will transition to oral intake as soon as she is able to tolerate it. I doubt we are dealing with true myxedema in this lady. There is always the risk of cardiac complications of IV thyroxine. Flu and pneumonia vaccination will be addressed per protocol. Further interventions will depend on her course through the hospitalization. She is stable enough to be downgraded certainly to the step-down unit or telemetry floor. Thank you very much for the consult, Dr. Brady. We will follow along and make further recommendations as picture progresses/becomes clearer. I will repeat a lactic acid level. We will also get inflammatory markers to include ferritin, D-dimers, LDH along with procalcitonin and CRP help guide clinical decision making. TID: [id number] RECEIPT: [id number] ZOE/SILVIA
[2020-09-17 06:03] LABS: Alanine Aminotransferase 41 units/L (7-56); Albumin 3.3 g/dL (3.9-5); Blood Urea Nitrogen 9 mg/dL (7-17); Calcium 8.2 mg/dL (8.4-10.2); Hemolysis Index 2
[2020-09-17 06:09] LABS: BUN/Creatinine Ratio 15
--- NOTE | 2020-09-17 08:13 | Progress Note ---
Assessment and Plan Assessment and Plan - Patient Problems (1) Acute respiratory failure with hypoxia Current Visit: Yes Status: Acute Plan to address problem: Improved On room air (2) Acute encephalopathy Current Visit: Yes Status: Acute Plan to address problem: Improved Normal sensorium (3) Drug ingestion Current Visit: Yes Status: Acute Plan to address problem: Trazodone taken accidentally Patient alert and oriented x3. (4) Hyperglycemia Current Visit: Yes Status: Acute Plan to address problem: Coverage for now (5) Hypokalemia Current Visit: Yes Status: Acute Plan to address problem: Since supplemented (6) Hypothyroidism Current Visit: Yes Status: Acute Plan to address problem: Patient placed on levothyroxine . We will monitor TSH. (7) Pneumonia Current Visit: Yes Status: Acute Plan to address problem: Patient has been placed on empiric IV antibiotics. We will also place on IV steroid. Patient will be ruled out for COVID-19. Consult placed to infectious disease for evaluation. (8) UTI (urinary tract infection) Current Visit: Yes Status: Acute Plan to address problem: We will continue on empiric IV antibiotics. We will await urine culture result. (9) DVT prophylaxis Current Visit: Yes Status: Acute Plan to address problem: Patient placed on subcutaneous Lovenox. (10) Full code status Current Visit: Yes Status: Acute Plan to address problem: Patient is full code. Subjective Date of service: 09/16/20 Principal diagnosis: COVID-19 positive test (U07.1, COVID-19) with Acute Pneumonia (J12.89, O Interval history: 54-year-old female with known history of bipolar disorder, hypothyroidism, hypertension and diabetes mellitus presents to the emergency room today by EMS having been found on the floor with complaints of generalized weakness versus sy ncope. Patient indicates that she took some trazodone in order to go to sleep but cannot recall how many tablets she took or the dosage. She was said to be confused upon arrival in the emergency room but became more arousable and was able to respond to questions during the course of her stay in the emergency room. She denies any fever or chills, no chest pain or shortness of breath, no nausea vomiting, no abdominal pain. She denies any headache or dizziness and no diaphoresis. She denies any hematuria or dysuria and denies any cough. Patient denies any sick contacts and no recent travel. Denies any contact with anyone with COVID-19. She was found to be hypoxic upon arrival with O2 saturation of about 86% on room air. Work-up in the emergency room today: Chest x-ray reveals patchy parenchymal opacities in both mid to lower lung zones. Atypical causes of pneumonia including viral pneumonia should be considered. Labs were significant for hyponatremia of 128, hypokalemia 3.2, blood glucose of 388, lactic acid of 2.7, TSH of 34.67 and at free T4 of 0.10. Urinalysis also reveals a UTI. Toxicology screen reveals a Tylenol level of 9.1 CT scan of the head and neck were unremarkable. Patient has been admitted for acute respiratory failure possibly secondary to pneumonia, hyper kalemia, drug overdose and hypoglycemia. Critical care physician has been consulted by the ER physician. 09/16/2020 COVID-pneumonia Coronavirus PCR positive Patient on room air Objective - Constitutional Vitals: Vital Signs - 12hr 09/16/20 09/16/20 09/16/20 20:16 20:30 20:46 Pulse Rate 82 79 82 Respiratory 26 H 24 25 H Rate Blood Pressure 144/62 131/56 131/56 O2 Sat by Pulse 85 89 92 Oximetry 09/16/20 09/16/20 09/16/20 20:48 21:00 21:16 Pulse Rate 83 89 85 Respiratory 22 19 23 Rate Blood Pressure 131/56 139/64 139/64 O2 Sat by Pulse 92 92 92 Oximetry 09/16/20 09/16/20 09/16/20 21:30 21:46 22:00 Pulse Rate 83 83 83 Respiratory 17 27 H 21 Rate Blood Pressure 121/50 121/50 146/55 O2 Sat by Pulse 91 90 89 Oximetry 09/16/20 09/16/20 09/16/20 22:16 22:30 22:46 Pulse Rate 82 82 79 Respiratory 23 25 H 27 H Rate Blood Pressure 146/55 141/54 141/54 O2 Sat by Pulse 90 91 92 Oximetry 09/16/20 09/16/20 09/16/20 23:00 23:16 23:30 Pulse Rate 83 83 86 Respiratory 19 24 19 Rate Blood Pressure 141/54 141/54 113/53 O2 Sat by Pulse 89 90 90 Oximetry 08/03/21 08/04/21 08/04/21 23:46 00:01 00:15 Pulse Rate 84 82 83 Respiratory 29 H 25 H 25 H Rate Blood Pressure 113/53 131/56 131/56 O2 Sat by Pulse 91 90 91 Oximetry 09/17/20 09/17/20 09/17/20 00:31 00:45 01:01 Pulse Rate 81 78 81 Respiratory 23 25 H 22 Rate Blood Pressure 133/55 133/55 137/61 O2 Sat by Pulse 91 91 91 Oximetry 09/17/20 09/17/20 09/17/20 01:15 01:31 01:41 Pulse Rate 82 80 Respiratory 26 H 22 Rate Blood Pressure 137/61 125/60 O2 Sat by Pulse 90 91 91 Oximetry 09/17/20 09/17/20 09/17/20 01:45 02:01 02:15 Pulse Rate 79 84 80 Respiratory 25 H 21 15 Rate Blood Pressure 125/60 120/69 120/69 O2 Sat by Pulse 90 89 91 Oximetry 09/17/20 09/17/20 09/17/20 02:31 02:45 03:01 Pulse Rate 80 81 81 Respiratory 21 24 18 Rate Blood Pressure 137/60 137/60 129/61 O2 Sat by Pulse 92 91 91 Oximetry 09/17/20 09/17/20 09/17/20 03:15 03:31 03:45 Pulse Rate 79 81 78 Respiratory 17 17 22 Rate Blood Pressure 129/61 137/55 137/55 O2 Sat by Pulse 91 91 92 Oximetry 09/17/20 09/17/20 09/17/20 04:01 04:15 04:31 Pulse Rate 78 79 78 Respiratory 20 23 24 Rate Blood Pressure 126/58 126/58 132/57 O2 Sat by Pulse 90 89 90 Oximetry 09/17/20 04:45 Pulse Rate 77 Respiratory 21 Rate Blood Pressure 132/57 O2 Sat by Pulse 93 Oximetry General appearance: Present: no acute distress, well-nourished - EENT Eyes: PERRL, EOM intact ENT: hearing intact, clear oral mucosa Ears: bilateral: normal - Neck Neck: supple, normal ROM - Respiratory Respiratory effort: normal Respiratory: bilateral: CTA - Breasts Breasts: normal - Cardiovascular Heart rate: 78 Rhythm: regular Heart Sounds: Present: S1 & S2. Absent: gallop, rub Extremities: pulses intact, No edema, normal color, Full ROM - Gastrointestinal General gastrointestinal: Present: soft, non-tender, non-distended, normal bowel sounds - Genitourinary Female genitourinary: normal - Integumentary Integumentary: clear, warm, dry - Musculoskeletal Musculoskeletal: 1, strength equal bilaterally - Neurologic Neurologic: moves all extremities - Psychiatric Psychiatric: memory intact, appropriate mood/affect, intact judgment & insight - Labs CBC & Chem 7: 09/16/20 04:47 09/17/20 04:59 Labs: Abnormal lab results 09/16/20 09/16/20 09/16/20 Range/Units 08:00 11:43 16:17 D-Dimer (0-234) ng/mlDDU Sodium (137-145) mmol/L Potassium (3.6-5.0) mmol/L Chloride (98-107) mmol/L Glucose (65-100) mg/dL POC Glucose 417 H 353 H (70-105) mg/dL Calcium (8.4-10.2) mg/dL Ferritin (10.0-200.0) ng/mL AST (5-40) units/L Lactate Dehydrogenase (91-180) units/L C-Reactive Protein (0.00-1.30) mg/dL Albumin (3.9-5) g/dL Acetaminophen (10.0-30.0) ug/mL Coronavirus (PCR) Positive A (Negative) 09/16/20 09/16/20 09/16/20 Range/Units 21:38 21:38 21:38 D-Dimer 702.65 H (0-234) ng/mlDDU Sodium (137-145) mmol/L Potassium (3.6-5.0) mmol/L Chloride (98-107) mmol/L Glucose (65-100) mg/dL POC Glucose (70-105) mg/dL Calcium (8.4-10.2) mg/dL Ferritin 1089.0 H (10.0-200.0) ng/mL AST (5-40) units/L Lactate Dehydrogenase 722 H (91-180) units/L C-Reactive Protein 6.80 H (0.00-1.30) mg/dL Albumin (3.9-5) g/dL Acetaminophen (10.0-30.0) ug/mL Coronavirus (PCR) (Negative) 09/16/20 09/16/20 09/16/20 Range/Units 21:38 21:38 22:24 D-Dimer (0-234) ng/mlDDU Sodium 134 L (137-145) mmol/L Potassium 3.5 L (3.6-5.0) mmol/L Chloride 95.1 L (98-107) mmol/L Glucose 288 H (65-100) mg/dL POC Glucose 307 H (70-105) mg/dL Calcium (8.4-10.2) mg/dL Ferritin (10.0-200.0) ng/mL AST 43 H (5-40) units/L Lactate Dehydrogenase (91-180) units/L C-Reactive Protein (0.00-1.30) mg/dL Albumin 3.7 L (3.9-5) g/dL Acetaminophen 5.0 L (10.0-30.0) ug/mL Coronavirus (PCR) (Negative) 09/17/20 Range/Units 04:59 D-Dimer (0-234) ng/mlDDU Sodium 135 L (137-145) mmol/L Potassium 3.0 L (3.6-5.0) mmol/L Chloride 97.2 L (98-107) mmol/L Glucose 149 H (65-100) mg/dL POC Glucose (70-105) mg/dL Calcium 8.2 L (8.4-10.2) mg/dL Ferritin (10.0-200.0) ng/mL AST 49 H (5-40) units/L Lactate Dehydrogenase (91-180) units/L C-Reactive Protein (0.00-1.30) mg/dL Albumin 3.3 L (3.9-5) g/dL Acetaminophen (10.0-30.0) ug/mL Coronavirus (PCR) (Negative) HEART Score - HEART Score Troponin: Troponin T < 0.010 ng/mL (0.00-0.029) 09/15/20 18:46
--- NOTE | 2020-09-17 08:16 | Progress Note ---
Assessment and Plan Assessment and Plan - Patient Problems (1) Acute respiratory failure with hypoxia Current Visit: Yes Status: Acute Plan to address problem: Improved On 5 L nasal cannula oxygen (2) Acute encephalopathy Current Visit: Yes Status: Acute Plan to address problem: Improved Normal sensorium (3) Drug ingestion Current Visit: Yes Status: Acute Plan to address problem: Trazodone taken accidentally Patient alert and oriented x3. No overdose (4) Hyperglycemia Current Visit: Yes Status: Acute Plan to address problem: Adjust insulin dosage Hypokalemia Current Visit: Yes Status: Acute Plan to address problem: Since supplemented (6) Hypothyroidism Current Visit: Yes Status: Acute Plan to address problem: Patient placed on levothyroxine . We will monitor TSH. (7) Pneumonia Current Visit: Yes Status: Acute Plan to address problem: Patient has been placed on empiric IV antibiotics. We will also place on IV steroid. Antibiotics discontinued (8) UTI (urinary tract infection) Current Visit: Yes Status: Acute Plan to address problem: We will continue on empiric IV antibiotics. We will await urine culture result. (9) DVT prophylaxis Current Visit: Yes Status: Acute Plan to address problem: Patient placed on subcutaneous Lovenox. (10) Full code status Current Visit: Yes Status: Acute Plan to address problem: Patient is full code. Subjective Date of service: 09/17/20 Principal diagnosis: COVID-19 positive test (U07.1, COVID-19) with Acute Pneumonia (J12.89, O Interval history: 54-year-old female with known history of bipolar disorder, hypothyroidism, hypertension and diabetes mellitus presents to the emergency room today by EMS having been found on the floor with complaints of generalized weakness versus syncope. Patient indicates that she took some trazodone in order to go to sleep but cannot recall how many tablets she took or the dosage. She was said to be confused upon arrival in the emergency room but became more arousable and was able to respond to questions during the course of her stay in the emergency room. She denies any fever or chills, no chest pain or shortness of breath, no nausea vomiting, no abdominal pain. She denies any headache or dizziness and no diaphoresis. She denies any hematuria or dysuria and denies any cough. Patient denies any sick contacts and no recent travel. Denies any contact with anyone with COVID-19. She was found to be hypoxic upon arrival with O2 saturation of about 86% on room air. Work-up in the emergency room today: Chest x-ray reveals patchy parenchymal opacities in both mid to lower lung zones. Atypical causes of pneumonia including viral pneumonia should be considered. Labs were significant for hyponatremia of 128, hypokalemia 3.2, blood glucose of 388, lactic acid of 2.7, TSH of 34.67 and at free T4 of 0.10. Urinalysis also reveals a UTI. Toxicology screen reveals a Tylenol level of 9.1 CT scan of the head and neck were unremarkable. Patient has been admitted for acute respiratory failure possibly secondary to pneumonia, hyper kalemia, drug overdose and hypoglycemia. Critical care physician has been consulted by the ER physician. 09/16/2020 COVID-pneumonia Coronavirus PCR positive Patient on 5 L nasal cannula oxygen 09/17/2020 Covid pneumonia Covid PCR positive yesterday Patient on 5 L nasal cannula oxygen ID consult appreciated On remdesivir Objective - Constitutional Vitals: Vital Signs - 12hr 09/16/20 09/16/20 09/16/20 20:16 20:30 20:46 Pulse Rate 82 79 82 Respiratory 26 H 24 25 H Rate Blood Pressure 144/62 131/56 131/56 O2 Sat by Pulse 85 89 92 Oximetry 09/16/20 09/16/20 09/16/20 20:48 21:00 21:16 Pulse Rate 83 89 85 Respiratory 22 19 23 Rate Blood Pressure 131/56 139/64 139/64 O2 Sat by Pulse 92 92 92 Oximetry 09/16/20 09/16/20 09/16/20 21:30 21:46 22:00 Pulse Rate 83 83 83 Respiratory 17 27 H 21 Rate Blood Pressure 121/50 121/50 146/55 O2 Sat by Pulse 91 90 89 Oximetry 09/16/20 09/16/20 09/16/20 22:16 22:30 22:46 Pulse Rate 82 82 79 Respiratory 23 25 H 27 H Rate Blood Pressure 146/55 141/54 141/54 O2 Sat by Pulse 90 91 92 Oximetry 09/16/20 09/16/20 09/16/20 23:00 23:16 23:30 Pulse Rate 83 83 86 Respiratory 19 24 19 Rate Blood Pressure 141/54 141/54 113/53 O2 Sat by Pulse 89 90 90 Oximetry 09/16/20 09/17/20 09/17/20 23:46 00:01 00:15 Pulse Rate 84 82 83 Respiratory 29 H 25 H 25 H Rate Blood Pressure 113/53 131/56 131/56 O2 Sat by Pulse 91 90 91 Oximetry 09/17/20 09/17/20 09/17/20 00:31 00:45 01:01 Pulse Rate 81 78 81 Respiratory 23 25 H 22 Rate Blood Pressure 133/55 133/55 137/61 O2 Sat by Pulse 91 91 91 Oximetry 09/17/20 09/17/20 09/17/20 01:15 01:31 01:41 Pulse Rate 82 80 Respiratory 26 H 22 Rate Blood Pressure 137/61 125/60 O2 Sat by Pulse 90 91 91 Oximetry 09/17/20 09/17/20 09/17/20 01:45 02:01 02:15 Pulse Rate 79 84 80 Respiratory 25 H 21 15 Rate Blood Pressure 125/60 120/69 120/69 O2 Sat by Pulse 90 89 91 Oximetry 09/17/20 09/17/20 09/17/20 02:31 02:45 03:01 Pulse Rate 80 81 81 Respiratory 21 24 18 Rate Blood Pressure 137/60 137/60 129/61 O2 Sat by Pulse 92 91 91 Oximetry 09/17/20 09/17/20 09/17/20 03:15 03:31 03:45 Pulse Rate 79 81 78 Respiratory 17 17 22 Rate Blood Pressure 129/61 137/55 137/55 O2 Sat by Pulse 91 91 92 Oximetry 09/17/20 09/17/20 09/17/20 04:01 04:15 04:31 Pulse Rate 78 79 78 Respiratory 20 23 24 Rate Blood Pressure 126/58 126/58 132/57 O2 Sat by Pulse 90 89 90 Oximetry 09/17/20 04:45 Pulse Rate 77 Respiratory 21 Rate Blood Pressure 132/57 O2 Sat by Pulse 93 Oximetry General appearance: Present: mild distress, well-nourished - EENT Eyes: PERRL, EOM intact ENT: hearing intact, clear oral mucosa Ears: bilateral: normal - Neck Neck: supple, normal ROM - Respiratory Respiratory effort: normal Respiratory: bilateral: CTA - Breasts Breasts: normal - Cardiovascular Heart rate: 78 Rhythm: regular Heart Sounds: Present: S1 & S2. Absent: gallop, rub Extremities: pulses intact, No edema, normal color, Full ROM - Gastrointestinal General gastrointestinal: Present: soft, non-tender, non-distended, normal bowel sounds Rectal Exam: deferred - Genitourinary Female genitourinary: normal - Integumentary Integumentary: clear, warm, dry - Musculoskeletal Musculoskeletal: 1, strength equal bilaterally - Neurologic Neurologic: moves all extremities - Psychiatric Psychiatric: memory intact, appropriate mood/affect, intact judgment & insight - Allied health notes Allied health notes reviewed: nursing, case management - Labs CBC & Chem 7: 09/16/20 04:47 09/18/20 08:01 Labs: Abnormal lab results 09/16/20 09/16/20 09/16/20 Range/Units 08:00 11:43 16:17 D-Dimer (0-234) ng/mlDDU Sodium (137-145) mmol/L Potassium (3.6-5.0) mmol/L Chloride (98-107) mmol/L Glucose (65-100) mg/dL POC Glucose 417 H 353 H (70-105) mg/dL Calcium (8.4-10.2) mg/dL Ferritin (10.0-200.0) ng/mL AST (5-40) units/L Lactate Dehydrogenase (91-180) units/L C-Reactive Protein (0.00-1.30) mg/dL Albumin (3.9-5) g/dL Acetaminophen (10.0-30.0) ug/mL Coronavirus (PCR) Positive A (Negative) 09/16/20 09/16/20 09/16/20 Range/Units 21:38 21:38 21:38 D-Dimer 702.65 H (0-234) ng/mlDDU Sodium (137-145) mmol/L Potassium (3.6-5.0) mmol/L Chloride (98-107) mmol/L Glucose (65-100) mg/dL POC Glucose (70-105) mg/dL Calcium (8.4-10.2) mg/dL Ferritin 1089.0 H (10.0-200.0) ng/mL AST (5-40) units/L Lactate Dehydrogenase 722 H (91-180) units/L C-Reactive Protein 6.80 H (0.00-1.30) mg/dL Albumin (3.9-5) g/dL Acetaminophen (10.0-30.0) ug/mL Coronavirus (PCR) (Negative) 09/16/20 09/16/20 09/16/20 Range/Units 21:38 21:38 22:24 D-Dimer (0-234) ng/mlDDU Sodium 134 L (137-145) mmol/L Potassium 3.5 L (3.6-5.0) mmol/L Chloride 95.1 L (98-107) mmol/L Glucose 288 H (65-100) mg/dL POC Glucose 307 H (70-105) mg/dL Calcium (8.4-10.2) mg/dL Ferritin (10.0-200.0) ng/mL AST 43 H (5-40) units/L Lactate Dehydrogenase (91-180) units/L C-Reactive Protein (0.00-1.30) mg/dL Albumin 3.7 L (3.9-5) g/dL Acetaminophen 5.0 L (10.0-30.0) ug/mL Coronavirus (PCR) (Negative) 09/17/20 Range/Units 04:59 D-Dimer (0-234) ng/mlDDU Sodium 135 L (137-145) mmol/L Potassium 3.0 L (3.6-5.0) mmol/L Chloride 97.2 L (98-107) mmol/L Glucose 149 H (65-100) mg/dL POC Glucose (70-105) mg/dL Calcium 8.2 L (8.4-10.2) mg/dL Ferritin (10.0-200.0) ng/mL AST 49 H (5-40) units/L Lactate Dehydrogenase (91-180) units/L C-Reactive Protein (0.00-1.30) mg/dL Albumin 3.3 L (3.9-5) g/dL Acetaminophen (10.0-30.0) ug/mL Coronavirus (PCR) (Negative) HEART Score - HEART Score Troponin: Troponin T < 0.010 ng/mL (0.00-0.029) 09/15/20 18:46
[2020-09-17] MEDS: SODIUM CHLORIDE 0.9% 1000 ML 1,000 ML IV SCH ×2 (10:47→21:48)
[2020-09-17] MEDS: cefTRIAXone/NS 2 GM/100 ML 2 GM/100 ML BAG IV SCH (10:48)
[2020-09-17] MEDS: FAMOTIDINE 20 MG TAB PO SCH (10:51)
[2020-09-17] MEDS: dexAMETHasone 4 MG/ML VIAL IV SCH (10:51)
--- NOTE | 2020-09-17 11:29 | Consultation ---
History of Present Illness - Reason for Consult Consult date: 09/16/20 Reason for consult: hx bipolar - History of Present Psychiatric Illness The patient was seen today. She is lying in bed awake. She is a/o x 2. She is COVID positive. The patient states she was brought to the hospital for her diabetes and shortness of breath. The patient says she has a history of de pression and "takes a lot of meds." She says she sees a psychiatrist on an outpatient basis and is compliant with them. She denies SI/HI or hallucinations of any kind. The patient does verbalize being depressed. She denies any illicit drug use, alcohol or nicotine. Psychiatric History Diagnoses: Depression Suicide attempts or Self-harm behavior: Denies Prior psychiatric hospitalizations: yes Substance Abuse history: Denies Previous psychiatric medications tried: "a lot of meds" Outpatient treatment: Yes PAST MEDICAL HISTORY: None reported Family Psychiatric History: None reported or documented SOCIAL HISTORY Marital Status: single Living Arrangements: with family Employment Status: Disabled Access to guns/weapons: Denies Education: History of Abuse: none reported Legal History: none reported REVIEW OF SYSTEMS Constitutional: Negative for weight loss ENT: Negative for stridor Respiratory: Negative for cough or hemoptysis All other systems reviewed and are negative MENTAL STATUS EXAMINATION General Appearance and Behavior: Age appropriate, good hygiene, wearing appropriate clothes, cooperative, calm and cooperative Cooperation: Participating/engaged Psychomotor Behavior: normal Mood: Depressed Affect and affective range: Congruent with stated mood Thought Process: circumstantial Thought Content: depression Speech: Normal volume, Regular rate and rhythm Suicidal Ideation: Denies Homicidal Ideation: Denies Hallucinations: Denies Delusions: None elicited Impulse Control: impaired Insight and Judgment: limited insight and judgment, Memory: Limited Attention: Normal Orientation: Alert, oriented Assessment and Plan (1) Major Depressive Disorder Current Visit: Yes Status: Acute Treatment Plan Zoloft 25mg po daily Sitter: per primary Medical: per primary Disposition: Do not recommend acute psychiatric progress at this time Will sign off. Thanks Case staffed with Dr. Gonzalez. Medications and Allergies Allergies Allergy/AdvReac Type Severity Reaction Status Date / Time No Known Allergies Allergy Verified 11/01/15 23:55 Home Medications Medication Instructions Recorded Confirmed Last Taken Type Ibuprofen [Motrin] 800 mg PO Q8HR PRN #30 tablet 05/25/16 Unknown Rx methOCARBAMOL [Robaxin TAB] 500 mg PO BID #20 tab 05/25/16 Unknown Rx traMADoL [Ultram 50 MG tab] 50 mg PO Q6HR PRN #20 tablet 05/25/16 Unknown Rx Azithromycin [Zithromax Tri-Matteo] 500 mg PO DAILY 3 Days #3 tablet 09/11/20 Unknown Rx Active Meds: Active Medications Dexamethasone (Dexamethasone 4 Mg/Ml Vial) 6 mg IV Q24HR AMANDA Stop: 09/24/20 10:01 Last Admin: 09/17/20 10:51 Dose: 6 mg Documented by: Dextrose (Dextrose 50% In Water (25gm) 50 Ml Syringe) 50 ml IV Q30MIN PRN; Protocol PRN Reason: Hypoglycemia Enoxaparin Sodium (Enoxaparin 40 Mg/0.4 Ml Inj) 40 mg SUB-Q QDAY@2200 AMANDA; Protocol Last Admin: 09/16/20 22:55 Dose: 40 mg Documented by: Famotidine (Famotidine 20 Mg Tab) 20 mg PO QDAY [facility] Last Admin: 09/17/20 10:51 Dose: 20 mg Documented by: Sodium Chloride (Nacl 0.9% 1000 Ml) 1,000 mls @ 125 mls/hr IV DIRECT AMANDA Last Admin: 09/17/20 10:47 Dose: 125 mls/hr Documented by: Ceftriaxone Sodium (Rocephin/Ns 2 Gm/100 Ml) 2 gm in 100 mls @ 200 mls/hr IV Q24HR AMANDA; Protocol Last Admin: 09/17/20 10:48 Dose: 200 mls/hr Documented by: Azithromycin (Zithromax/Ns) 500 mg in 250 mls @ 250 mls/hr IV Q24H AMANDA; Protocol Last Admin: 09/16/20 22:56 Dose: 250 mls/hr Documented by: REMDESIVIR 100 mg/ Sodium (Chloride) 250 mls @ 500 mls/hr IV Q24HR@2100 AMANDA Stop: 09/20/20 21:29 Ibuprofen (Ibuprofen 600 Mg Tab) 600 mg PO Q6H PRN PRN Reason: Pain, Mild (1-3) Insulin Human Regular (Insulin Regular, Human 100 Units/1 Ml) 0 units SUB-Q ACHS AMANDA; Protocol Last Admin: 09/16/20 22:55 Dose: 6 units Documented by: Levothyroxine Sodium (Levothyroxine 125 Mcg Tab) 125 mcg PO DAILY@0600 [facility] Magnesium Hydroxide (Magnesium Hydroxide (Mom) Oral Liqd Udc) 30 ml PO Q4H PRN PRN Reason: Constipation Morphine Sulfate (Morphine 2 Mg/1 Ml Inj) 2 mg IV Q4H PRN PRN Reason: Pain, Moderate (4-6) Morphine Sulfate (Morphine 4 Mg/1 Ml Inj) 4 mg IV Q4H PRN PRN Reason: Pain , Severe (7-10) Naloxone HCl (Naloxone 0.4 Mg/1 Ml Inj) 0.1 mg IV Q2MIN PRN PRN Reason: Res Rate </= 8 or 02 SAT < 92% Ondansetron HCl (Ondansetron 4 Mg/2 Ml Inj) 4 mg IV Q8H PRN PRN Reason: Nausea And Vomiting Sodium Chloride (Sodium Chloride 0.9% 10 Ml Flush Syringe) 10 ml IV BID [facility] Last Admin: 09/17/20 10:52 Dose: 10 ml Documented by: Sodium Chloride (Sodium Chloride 0.9% 10 Ml Flush Syringe) 10 ml IV PRN PRN PRN Reason: LINE FLUSH Sodium Chloride (Sodium Chloride 0.9% 50 Ml Ivpb) 50 ml IV Q24HR@2100 [facility] Stop: 09/20/20 21:01 Last Admin: 09/16/20 22:56 Dose: 50 ml Documented by: Mental Status Exam - Vital signs Last Vital Signs Temp 97.7 F 09/15/20 19:42 Pulse 78 09/17/20 08:01 Resp 20 09/17/20 09:26 BP 146/70 09/17/20 08:01 Pulse Ox 93 09/17/20 09:26 Results Result Diagrams: 09/16/20 04:47 09/17/20 04:59 Abnormal lab results 09/16/20 09/16/20 09/16/20 Range/Units 08:00 11:43 16:17 D-Dimer (0-234) ng/mlDDU Sodium (137-145) mmol/L Potassium (3.6-5.0) mmol/L Chloride (98-107) mmol/L Glucose (65-100) mg/dL POC Glucose 417 H 353 H (70-105) mg/dL Calcium (8.4-10.2) mg/dL Ferritin (10.0-200.0) ng/mL AST (5-40) units/L Lactate Dehydrogenase (91-180) units/L C-Reactive Protein (0.00-1.30) mg/dL Albumin (3.9-5) g/dL Acetaminophen (10.0-30.0) ug/mL Coronavirus (PCR) Positive A (Negative) 09/16/20 09/16/20 09/16/20 Range/Units 21:38 21:38 21:38 D-Dimer 702.65 H (0-234) ng/mlDDU Sodium (137-145) mmol/L Potassium (3.6-5.0) mmol/L Chloride (98-107) mmol/L Glucose (65-100) mg/dL POC Glucose (70-105) mg/dL Calcium (8.4-10.2) mg/dL Ferritin 1089.0 H (10.0-200.0) ng/mL AST (5-40) units/L Lactate Dehydrogenase 722 H (91-180) units/L C-Reactive Protein 6.80 H (0.00-1.30) mg/dL Albumin (3.9-5) g/dL Acetaminophen (10.0-30.0) ug/mL Coronavirus (PCR) (Negative) 09/16/20 09/16/20 09/16/20 Range/Units 21:38 21:38 22:24 D-Dimer (0-234) ng/mlDDU Sodium 134 L (137-145) mmol/L Potassium 3.5 L (3.6-5.0) mmol/L Chloride 95.1 L (98-107) mmol/L Glucose 288 H (65-100) mg/dL POC Glucose 307 H (70-105) mg/dL Calcium (8.4-10.2) mg/dL Ferritin (10.0-200.0) ng/mL AST 43 H (5-40) units/L Lactate Dehydrogenase (91-180) units/L C-Reactive Protein (0.00-1.30) mg/dL Albumin 3.7 L (3.9-5) g/dL Acetaminophen 5.0 L (10.0-30.0) ug/mL Coronavirus (PCR) (Negative) 09/17/20 Range/Units 04:59 D-Dimer (0-234) ng/mlDDU Sodium 135 L (137-145) mmol/L Potassium 3.0 L (3.6-5.0) mmol/L Chloride 97.2 L (98-107) mmol/L Glucose 149 H (65-100) mg/dL POC Glucose (70-105) mg/dL Calcium 8.2 L (8.4-10.2) mg/dL Ferritin (10.0-200.0) ng/mL AST 49 H (5-40) units/L Lactate Dehydrogenase (91-180) units/L C-Reactive Protein (0.00-1.30) mg/dL Albumin 3.3 L (3.9-5) g/dL Acetaminophen (10.0-30.0) ug/mL Coronavirus (PCR) (Negative) All other labs normal.
[2020-09-17] MEDS: INSULIN REGULAR, HUMAN 100 UNITS/1 ML SUB-Q SCH ×4 (11:30→21:57)
--- NOTE | 2020-09-17 14:23 | Progress Note ---
Assessment and Plan 54-year-old female with known history of bipolar disorder, hypothyroidism, hypertension and diabetes mellitus presents to the emergency room today by EMS having been found on the floor with complaints of generalized weakness versus syncope. Patient indicates that she took some trazodone in order to go to sleep but cannot recall how many tablets she took or the dosage. She was said to be confused upon arrival in the emergency room but became more arousable and was able to respond to questions during the course of her stay in the emergency room. She denies any fever or chills, no chest pain or shortness of breath, no nausea vomiting, no abdominal pain. She denies any headache or dizziness and no diaphoresis. She denies any hematuria or dysuria and denies any cough. Patient denies any sick contacts and no recent travel. Denies any contact with anyone with COVID-19. She was found to be hypoxic upon arrival with O2 saturation of about 86% on room air. Work-up in the emergency room today: Chest x-ray reveals patchy parenchymal opacities in both mid to lower lung zones. Atypical causes of pneumonia including viral pneumonia should be considered. Labs were significant for hyponatremia of 128, hypokalemia 3.2, blood glucose of 388, lactic acid of 2.7, TSH of 34.67 and at free T4 of 0.10. Urinalysis also reveals a UTI. Toxicology screen reveals a Tylenol level of 9.1 CT scan of the head and neck were unremarkable. Patient has been admitted for acute respiratory failure possibly secondary to pneumonia, hyper kalemia, drug overdose and hypoglycemia. Patients PCR for cronavirus is positive. Patient awake. Not following commands. Patient resting on 5 litres O2.O2 saturation 96%. No acute respiratory distress. Patient afebrile. No leukocytosis. Chest xray done 09/15/20 reported Patchy parenchymal opacities in both mid to lower lung zones have increased. Atypical causes of pneumonia, including viral pneumonia, should be considered. ABGs on room air ABG pH 7.420 (7.320-7.450) 09/15/20 20:02 POC ABG pCO2 31.1 mmHg (32.0-48.0) L 09/15/20 20:02 POC ABG pO2 46.9 mmHg (83-108) L 09/15/20 20:02 POC ABG HCO3 19.7 09/15/20 20:02 ABG O2 Saturation 84.1 (0-100) 09/15/20 20:02 Patient placed on 5 litres O2. Patient is on dexamethasone, S/C Lovenox, Famotidine and Remdesivir. I spent critical care time of 40 minutes on this patient, reviewing the chart, Obtaining history, examine the COVID Patient, review chest xray, review labs, talking to the nursing staff and work out plan of treatment in this critically ill COVID Patient. - Patient Problems (1) Acute respiratory failure with hypoxia Current Visit: Yes Status: Acute Plan to address problem: Patient is on 5 litres O2. Continue Dexamethasone. Continue S/C Lovenox. Continue famotidine. (2) Drug ingestion Current Visit: Yes Status: Acute Plan to address problem: Actaaminophyllin lvel 5.0 (3) Acute encephalopathy Current Visit: Yes Status: Acute Plan to address problem: Recommend to consult neurology. (4) Hyperglycemia Current Visit: Yes Status: Acute Plan to address problem: Management as per primary care. (5) Hypokalemia Current Visit: Yes Status: Acute Plan to address problem: Supplement K+ (6) Hypothyroidism Current Visit: Yes Status: Acute Plan to address problem: Patient is on Levothyroxine. (7) Pneumonia Current Visit: Yes Status: Acute Plan to address problem: Patient was on Zithromax and ceftriaxone. (8) UTI (urinary tract infection) Current Visit: Yes Status: Acute Plan to address problem: Patient was on ceftriaxone. Subjective Date of service: 09/17/20 Principal diagnosis: COVID-19 positive test (U07.1, COVID-19) with Acute Pneumonia (J12.89, O Interval history: 54-year-old female with known history of bipolar disorder, hypothyroidism, hypertension and diabetes mellitus presents to the emergency room today by EMS having been found on the floor with complaints of generalized weakness versus syncope. Patient indicates that she took some trazodone in order to go to sleep but cannot recall how many tablets she took or the dosage. She was said to be confused upon arrival in the emergency room but became more arousable and was able to respond to questions during the course of her stay in the emergency room. She denies any fever or chills, no chest pain or shortness of breath, no nausea vomiting, no abdominal pain. She denies any headache or dizziness and no diaphoresis. She denies any hematuria or dysuria and denies any cough. Patient denies any sick contacts and no recent travel. Denies any contact with anyone with COVID-19. She was found to be hypoxic upon arrival with O2 saturation of about 86% on room air. Work-up in the emergency room today: Chest x-ray reveals patchy parenchymal opacities in both mid to lower lung zones. Atypical causes of pneumonia including viral pneumonia should be considered. Labs were significant for hyponatremia of 128, hypokalemia 3.2, blood glucose of 388, lactic acid of 2.7, TSH of 34.67 and at free T4 of 0.10. Urinalysis also reveals a UTI. Toxicology screen reveals a Tylenol level of 9.1 CT scan of the head and neck were unremarkable. Patient has been admitted for acute respiratory failure possibly secondary to pneumonia, hyper kalemia, drug overdose and hypoglycemia. Patients PCR for cronavirus is positive. Patient awake. Not following commands. Patient resting on 5 litres O2.O2 saturation 96%. No acute respiratory distress. Patient afebrile. No leukocytosis. Chest xray done 09/15/20 reported Patchy parenchymal opacities in both mid to lower lung zones have increased. Atypical causes of pneumonia, including viral pneumonia, should be considered. ABGs on room air ABG pH 7.420 (7.320-7.450) 09/15/20 20:02 POC ABG pCO2 31.1 mmHg (32.0-48.0) L 09/15/20 20:02 POC ABG pO2 46.9 mmHg (83-108) L 09/15/20 20:02 POC ABG HCO3 19.7 09/15/20 20:02 ABG O2 Saturation 84.1 (0-100) 09/15/20 20:02 Patient placed on 5 litres O2. Patient is on dexamethasone, S/C Lovenox, Famotidine and Remdesivir. Objective Vital Signs - 12hr 09/17/20 09/17/20 09/17/20 02:31 02:45 03:01 Pulse Rate 80 81 81 Respiratory 21 24 18 Rate Blood Pressure 137/60 137/60 129/61 O2 Sat by Pulse 92 91 91 Oximetry 09/17/20 09/17/20 09/17/20 03:15 03:31 03:45 Pulse Rate 79 81 78 Respiratory 17 17 22 Rate Blood Pressure 129/61 137/55 137/55 O2 Sat by Pulse 91 91 92 Oximetry 09/17/20 09/17/20 09/17/20 04:01 04:15 04:31 Pulse Rate 78 79 78 Respiratory 20 23 24 Rate Blood Pressure 126/58 126/58 132/57 O2 Sat by Pulse 90 89 90 Oximetry 09/17/20 09/17/20 09/17/20 04:45 05:01 05:31 Pulse Rate 77 78 74 Respiratory 21 23 22 Rate Blood Pressure 132/57 141/61 132/57 O2 Sat by Pulse 93 94 94 Oximetry 09/17/20 09/17/20 09/17/20 06:15 07:01 07:45 Pulse Rate 75 81 79 Respiratory 17 18 26 H Rate Blood Pressure 136/67 147/73 142/65 O2 Sat by Pulse 93 91 92 Oximetry 09/17/20 09/17/20 09/17/20 08:01 08:36 08:42 Pulse Rate 78 Respiratory 24 Rate Blood Pressure 146/70 O2 Sat by Pulse 90 96 93 Oximetry 09/17/20 09:26 Pulse Rate Respiratory 20 Rate Blood Pressure O2 Sat by Pulse 93 Oximetry Constitutional: no acute distress, alert, lethargic, other (Weak.) Eyes: non-icteric ENT: oropharynx moist Neck: supple, no lymphadenopathy Effort: normal Ascultation: Bilateral: rhonchi Cardiovascular: regular rate and rhythm Gastrointestinal: normoactive bowel sounds, soft, non-tender Integumentary: normal Extremities: no cyanosis, no edema Neurologic: non-focal exam, pupils equal and round Psychiatric: depressed CBC and BMP: 09/16/20 04:47 09/17/20 04:59 ABG, PT/INR, D-dimer: ABG ABG pH 7.420 (7.320-7.450) 09/15/20 20:02 POC ABG pCO2 31.1 mmHg (32.0-48.0) L 09/15/20 20:02 POC ABG pO2 46.9 mmHg (83-108) L 09/15/20 20:02 POC ABG HCO3 19.7 09/15/20 20:02 ABG O2 Saturation 84.1 (0-100) 09/15/20 20:02 PT/INR, D-dimer PT 14.7 Sec. (12.2-14.9) 09/16/20 04:47 INR 1.10 (0.87-1.13) 09/16/20 04:47 D-Dimer 702.65 ng/mlDDU (0-234) H 09/16/20 21:38 Abnormal lab findings: Abnormal Labs 09/15/20 09/15/20 09/15/20 18:46 18:46 18:46 Hgb 14.4 H MCH MCHC Lymph % (Auto) Lymph # (Auto) Seg Neutrophils % Seg Neutrophils # D-Dimer POC ABG pCO2 POC ABG pO2 ABG Oxyhemoglobin ABG Sodium ABG Potassium ABG Glucose Sodium 128 L Potassium 3.2 L Chloride 89.3 L Glucose 388 H POC Glucose Lactic Acid Calcium 8.2 L Ferritin AST 69 H Ammonia Lactate Dehydrogenase C-Reactive Protein Albumin 3.6 L TSH 34.670 H Free T4 Arterial Blood Glucose Urine WBC (Auto) Salicylates Acetaminophen Coronavirus (PCR) 09/15/20 09/15/20 09/15/20 18:46 18:46 18:46 Hgb MCH MCHC Lymph % (Auto) Lymph # (Auto) Seg Neutrophils % Seg Neutrophils # D-Dimer POC ABG pCO2 POC ABG pO2 ABG Oxyhemoglobin ABG Sodium ABG Potassium ABG Glucose Sodium Potassium Chloride Glucose POC Glucose Lactic Acid Calcium Ferritin AST Ammonia 23.0 L Lactate Dehydrogenase C-Reactive Protein Albumin TSH Free T4 Arterial Blood Glucose Urine WBC (Auto) Salicylates < 0.3 L Acetaminophen 9.1 L Coronavirus (PCR) 09/15/20 09/15/20 09/15/20 19:38 19:40 19:43 Hgb MCH MCHC Lymph % (Auto) Lymph # (Auto) Seg Neutrophils % Seg Neutrophils # D-Dimer POC ABG pCO2 POC ABG pO2 ABG Oxyhemoglobin ABG Sodium ABG Potassium ABG Glucose Sodium Potassium Chloride Glucose POC Glucose 398 H Lactic Acid 2.70 H* Calcium Ferritin AST Ammonia Lactate Dehydrogenase C-Reactive Protein Albumin TSH Free T4 0.10 L Arterial Blood Glucose Urine WBC (Auto) Salicylates Acetaminophen Coronavirus (PCR) 09/15/20 09/15/20 09/16/20 20:02 Unknown 04:47 Hgb 14.8 H MCH 33 H MCHC 36 H Lymph % (Auto) 7.3 L Lymph # (Auto) 0.8 L Seg Neutrophils % 85.7 H Seg Neutrophils # 8.9 H D-Dimer POC ABG pCO2 31.1 L POC ABG pO2 46.9 L ABG Oxyhemoglobin 82.8 L ABG Sodium 129.8 L ABG Potassium 3.1 L ABG Glucose 374 H Sodium Potassium Chloride Glucose POC Glucose Lactic Acid Calcium Ferritin AST Ammonia Lactate Dehydrogenase C-Reactive Protein Albumin TSH Free T4 Arterial Blood Glucose 374 H Urine WBC (Auto) > 182.0 H Salicylates Acetaminophen Coronavirus (PCR) 09/16/20 09/16/20 09/16/20 04:47 07:20 08:00 Hgb MCH MCHC Lymph % (Auto) Lymph # (Auto) Seg Neutrophils % Seg Neutrophils # D-Dimer POC ABG pCO2 POC ABG pO2 ABG Oxyhemoglobin ABG Sodium ABG Potassium ABG Glucose Sodium 135 L D Potassium Chloride 94.1 L Glucose 418 H POC Glucose 403 H Lactic Acid Calcium 8.3 L Ferritin AST Ammonia Lactate Dehydrogenase C-Reactive Protein Albumin TSH Free T4 Arterial Blood Glucose Urine WBC (Auto) Salicylates Acetaminophen Coronavirus (PCR) Positive A 09/16/20 09/16/20 09/16/20 11:43 16:17 21:38 Hgb MCH MCHC Lymph % (Auto) Lymph # (Auto) Seg Neutrophils % Seg Neutrophils # D-Dimer 702.65 H POC ABG pCO2 POC ABG pO2 ABG Oxyhemoglobin ABG Sodium ABG Potassium ABG Glucose Sodium Potassium Chloride Glucose POC Glucose 417 H 353 H Lactic Acid Calcium Ferritin AST Ammonia Lactate Dehydrogenase C-Reactive Protein Albumin TSH Free T4 Arterial Blood Glucose Urine WBC (Auto) Salicylates Acetaminophen Coronavirus (PCR) 09/16/20 09/16/20 09/16/20 21:38 21:38 21:38 Hgb MCH MCHC Lymph % (Auto) Lymph # (Auto) Seg Neutrophils % Seg Neutrophils # D-Dimer POC ABG pCO2 POC ABG pO2 ABG Oxyhemoglobin ABG Sodium ABG Potassium ABG Glucose Sodium Potassium Chloride Glucose POC Glucose Lactic Acid Calcium Ferritin 1089.0 H AST Ammonia Lactate Dehydrogenase 722 H C-Reactive Protein 6.80 H Albumin TSH Free T4 Arterial Blood Glucose Urine WBC (Auto) Salicylates Acetaminophen 5.0 L Coronavirus (PCR) 09/16/20 09/16/20 09/17/20 21:38 22:24 04:59 Hgb MCH MCHC Lymph % (Auto) Lymph # (Auto) Seg Neutrophils % Seg Neutrophils # D-Dimer POC ABG pCO2 POC ABG pO2 ABG Oxyhemoglobin ABG Sodium ABG Potassium ABG Glucose Sodium 134 L 135 L Potassium 3.5 L 3.0 L Chloride 95.1 L 97.2 L Glucose 288 H 149 H POC Glucose 307 H Lactic Acid Calcium 8.2 L Ferritin AST 43 H 49 H Ammonia Lactate Dehydrogenase C-Reactive Protein Albumin 3.7 L 3.3 L TSH Free T4 Arterial Blood Glucose Urine WBC (Auto) Salicylates Acetaminophen Coronavirus (PCR) 09/17/20 12:25 Hgb MCH MCHC Lymph % (Auto) Lymph # (Auto) Seg Neutrophils % Seg Neutrophils # D-Dimer POC ABG pCO2 POC ABG pO2 ABG Oxyhemoglobin ABG Sodium ABG Potassium ABG Glucose Sodium Potassium Chloride Glucose POC Glucose 199 H Lactic Acid Calcium Ferritin AST Ammonia Lactate Dehydrogenase C-Reactive Protein Albumin TSH Free T4 Arterial Blood Glucose Urine WBC (Auto) Salicylates Acetaminophen Coronavirus (PCR) Chest x-ray: report reviewed, image reviewed Additional Studies: CHEST 1 VIEW 09/15/2020 7:17 PM INDICATION / CLINICAL INFORMATION: Fall and weakness. History of right upper lobe pneumonia. COMPARISON: 09/10/20. FINDINGS: SUPPORT DEVICES: None. HEART / MEDIASTINUM: Unchanged. LUNGS / PLEURA: Patchy parenchymal disease in the right midlung has increased. Patchy parenchymal disease in the left mid to lower lung peripherally is new. No large pleural effusion. No pneumothorax. ADDITIONAL FINDINGS: No significant additional findings. IMPRESSION: Patchy parenchymal opacities in both mid to lower lung zones have increased. Atypical causes of pneumonia, including viral pneumonia, should be considered.
--- NOTE | 2020-09-17 16:45 | Progress Note ---
Assessment and Plan Cultures: Blood culture no growth so far Covid PUI positive A/P: 54-year-old female past medical history bipolar, hypothyroidism, hyperten aubree, diabetes now with: #Acute hypoxic respiratory failure: Likely secondary to pneumonia, bacteri al/aspiration versus viral. Currently on 3 L nasal cannula #Covid pneumonia: PCR positive #Bilateral pneumonia #Drug overdose: With trazodone Recs: -Stop antibiotics due to normal procalcitonin -Complete 5 days Remdesivir -Steroids per primary for 10 days -Follow-up culture data Thank you for the consult, we will continue to follow. Dominique Patel MD [facility], [place], [facility] ([facility]) O: [phone] F: [phone] Subjective Date of service: 09/17/20 Principal diagnosis: COVID-19 positive test (U07.1, COVID-19) with Acute Pneumonia (J12.89, O Interval history: Afebrile, normal white count. Currently on 3 L nasal cannula. Objective - Exam Narrative Exam: Physical exam deferred to reduce risk of transmission of COVID-19. Please refer to primary team's note. - Constitutional Vitals: Vital Signs Temp Pulse Resp BP Pulse Ox 97.7 F 78 20 146/70 93 09/15/20 19:42 09/17/20 08:01 09/17/20 09:26 09/17/20 08:01 09/17/20 09:26 - Labs CBC & Chem 7: 09/16/20 04:47 09/17/20 04:59 Labs: Abnormal lab results 09/16/20 09/16/20 09/16/20 Range/Units 08:00 21:38 21:38 D-Dimer 702.65 H (0-234) ng/mlDDU Sodium (137-145) mmol/L Potassium (3.6-5.0) mmol/L Chloride (98-107) mmol/L Glucose (65-100) mg/dL POC Glucose (70-105) mg/dL Calcium (8.4-10.2) mg/dL Ferritin 1089.0 H (10.0-200.0) ng/mL AST (5-40) units/L Lactate Dehydrogenase (91-180) units/L C-Reactive Protein (0.00-1.30) mg/dL Albumin (3.9-5) g/dL Acetaminophen (10.0-30.0) ug/mL Coronavirus (PCR) Positive A (Negative) 09/16/20 09/16/20 09/16/20 Range/Units 21:38 21:38 21:38 D-Dimer (0-234) ng/mlDDU Sodium 134 L (137-145) mmol/L Potassium 3.5 L (3.6-5.0) mmol/L Chloride 95.1 L (98-107) mmol/L Glucose 288 H (65-100) mg/dL POC Glucose (70-105) mg/dL Calcium (8.4-10.2) mg/dL Ferritin (10.0-200.0) ng/mL AST 43 H (5-40) units/L Lactate Dehydrogenase 722 H (91-180) units/L C-Reactive Protein 6.80 H (0.00-1.30) mg/dL Albumin 3.7 L (3.9-5) g/dL Acetaminophen 5.0 L (10.0-30.0) ug/mL Coronavirus (PCR) (Negative) 09/16/20 09/17/20 09/17/20 Range/Units 22:24 04:59 12:25 D-Dimer (0-234) ng/mlDDU Sodium 135 L (137-145) mmol/L Potassium 3.0 L (3.6-5.0) mmol/L Chloride 97.2 L (98-107) mmol/L Glucose 149 H (65-100) mg/dL POC Glucose 307 H 199 H (70-105) mg/dL Calcium 8.2 L (8.4-10.2) mg/dL Ferritin (10.0-200.0) ng/mL AST 49 H (5-40) units/L Lactate Dehydrogenase (91-180) units/L C-Reactive Protein (0.00-1.30) mg/dL Albumin 3.3 L (3.9-5) g/dL Acetaminophen (10.0-30.0) ug/mL Coronavirus (PCR) (Negative)
[2020-09-17] MEDS: SERTRALINE 25 MG TAB PO SCH (18:22)
[2020-09-17] MEDS: REMDESIVIR 100 MG in SODIUM CHLORIDE 0.9% 250ML 250 ML IV SCH (21:48)
[2020-09-17] MEDS: SODIUM CHLORIDE 0.9% 50 ML IVPB IV SCH (21:49)
[2020-09-17] MEDS: ENOXAPARIN 40 MG/0.4 ML INJ SUB-Q SCH (21:49)
[2020-09-17] MEDS: LEVOTHYROXINE 100 MCG INJ IV SCH (21:50)
[2020-09-18] MEDS: LEVOTHYROXINE 125 MCG TAB PO SCH (05:36)
[2020-09-18] MEDS: MORPHINE 2 MG/1 ML INJ IV PRN (07:17)
[2020-09-18] MEDS: INSULIN REGULAR, HUMAN 100 UNITS/1 ML SUB-Q SCH ×4 (07:30→22:17)
[2020-09-18] MEDS: SERTRALINE 25 MG TAB PO SCH (09:09)
[2020-09-18] MEDS: FAMOTIDINE 20 MG TAB PO SCH (09:09)
[2020-09-18 09:10] LABS: Alanine Aminotransferase 34 units/L (7-56); Albumin 3.3 g/dL (3.9-5); Blood Urea Nitrogen 9 mg/dL (7-17); Calcium 8.3 mg/dL (8.4-10.2); Hemolysis Index 8
[2020-09-18] MEDS: dexAMETHasone 4 MG/ML VIAL IV SCH (09:10)
[2020-09-18 09:22] LABS: BUN/Creatinine Ratio 15
--- NOTE | 2020-09-18 10:43 | Progress Note ---
Assessment and Plan Cultures: Blood culture no growth so far Covid PUI positive A/P: 54-year-old female past medical history bipolar, hypothyroidism, hyperten aubree, diabetes now with: #Acute hypoxic respiratory failure: Likely secondary to pneumonia, bacteri al/aspiration versus viral. Currently on 6 L nasal cannula #Covid pneumonia: PCR positive #Bilateral pneumonia #Drug overdose: With trazodone Recs: -Stop antibiotics due to normal procalcitonin -Complete 5 days Remdesivir -Steroids per primary for 10 days -Follow-up culture data -If she decompensates to require 30L HFNC and CRP > 7.5 would give Actemra. Thank you for the consult, we will continue to follow. Dominique Patel MD [facility] ([facility]) O: [phone] F: [phone] Subjective Date of service: 09/18/20 Principal diagnosis: COVID-19 positive test (U07.1, COVID-19) with Acute Pneumonia (J12.89, O Interval history: Afebrile, no acute change. On 6 L nasal cannula. Objective - Exam Narrative Exam: Physical exam deferred to reduce risk of transmission of COVID-19. Please refer to primary team's note. - Constitutional Vitals: Vital Signs Temp Pulse Resp BP Pulse Ox 97.9 F 85 18 125/55 91 09/18/20 05:40 09/17/20 11:42 09/18/20 05:40 09/18/20 05:40 09/18/20 05:42 Temperature -Last 24 Hours Temperature 97.9 F - Labs CBC & Chem 7: 09/16/20 04:47 09/18/20 08:01 Labs: Abnormal lab results 09/17/20 09/17/20 09/17/20 Range/Units 12:25 16:57 21:30 Potassium (3.6-5.0) mmol/L Glucose (65-100) mg/dL POC Glucose 199 H 313 H 304 H (70-105) mg/dL Calcium (8.4-10.2) mg/dL AST (5-40) units/L Albumin (3.9-5) g/dL 09/18/20 09/18/20 Range/Units 08:01 08:05 Potassium 3.1 L (3.6-5.0) mmol/L Glucose 112 H (65-100) mg/dL POC Glucose 125 H (70-105) mg/dL Calcium 8.3 L (8.4-10.2) mg/dL AST 47 H (5-40) units/L Albumin 3.3 L (3.9-5) g/dL
--- NOTE | 2020-09-18 10:51 | Electrocardiograph Report ---
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
--- NOTE | 2020-09-18 14:26 | Progress Note ---
Assessment and Plan Assessment and Plan - Patient Problems (1) Acute respiratory failure with hypoxia Current Visit: Yes Status: Acute Plan to address problem: Improved On 5 L nasal cannula oxygen (2) Acute encephalopathy Current Visit: Yes Status: Acute Plan to address problem: Improved Normal sensorium (3) Drug ingestion Current Visit: Yes Status: Acute Plan to address problem: Trazodone taken accidentally Patient alert and oriented x3. No overdose (4) Hyperglycemia Current Visit: Yes Status: Acute Plan to address problem: Adjust insulin dosage Hypokalemia Current Visit: Yes Status: Acute Plan to address problem: Since supplemented (6) Hypothyroidism Current Visit: Yes Status: Acute Plan to address problem: Patient placed on levothyroxine . We will monitor TSH. (7) Pneumonia Current Visit: Yes Status: Acute Plan to address problem: Antibiotics discontinued because of normal for pro calcitonin (8) UTI (urinary tract infection) Current Visit: Yes Status: Acute Plan to address problem: Antibiotics stopped (9) DVT prophylaxis Current Visit: Yes Status: Acute Plan to address problem: Patient placed on subcutaneous Lovenox. (10) Full code status Current Visit: Yes Status: Acute Plan to address problem: Patient is full code. Trying to wean off oxygen. (11 )Discharge planning issues Patient saturations dropped to 88% at 3 L when dropped from 5 L We will try to decrease the oxygen supplementation every 12 hours and try to wean If she comes down to 2 L will arrange for home oxygen on discharge Subjective Date of service: 09/18/20 Principal diagnosis: COVID-19 positive test (U07.1, COVID-19) with Acute Pneumonia (J12.89, O Interval history: 54-year-old female with known history of bipolar disorder, hypothyroidism, hypertension and diabetes mellitus presents to the emergency room today by EMS having been found on the floor with complaints of generalized weakness versus syncope. Patient indicates that she took some trazodone in order to go to sleep but cannot recall how many tablets she took or the dosage. She was said to be confused upon arrival in the emergency room but became more arousable and was able to respond to questions during the course of her stay in the emergency room. She denies any fever or chills, no chest pain or shortness of breath, no nausea vomiting, no abdominal pain. She denies any headache or dizziness and no diaphoresis. She denies any hematuria or dysuria and denies any cough. Patient denies any sick contacts and no recent travel. Denies any contact with anyone with COVID-19. She was found to be hypoxic upon arrival with O2 saturation of about 86% on room air. Work-up in the emergency room today: Chest x-ray reveals patchy parenchymal opacities in both mid to lower lung zones. Atypical causes of pneumonia including viral pneumonia should be consi dered. Labs were significant for hyponatremia of 128, hypokalemia 3.2, blood glucose of 388, lactic acid of 2.7, TSH of 34.67 and at free T4 of 0.10. Urinalysis also reveals a UTI. Toxicology screen reveals a Tylenol level of 9.1 CT scan of the head and neck were unremarkable. Patient has been admitted for acute respiratory failure possibly secondary to pneumonia, hyper kalemia, drug overdose and hypoglycemia. Critical care physician has been consulted by the ER physician. 09/16/2020 COVID-pneumonia Coronavirus PCR positive Patient on 5 L nasal cannula oxygen 09/17/2020 Covid pneumonia Covid PCR positive yesterday Patient on 5 L nasal cannula oxygen ID consult appreciated On remdesivir 09/18/2020 Still on 5 L nasal cannula oxygen Saturations dropped to 88% on 3 L nasal cannula oxygen Trying to wean but not possible Continue remdesivir Objective - Constitutional Vitals: Vital Signs - 12hr 09/18/20 09/18/20 09/18/20 05:40 05:42 10:00 Temperature 97.9 F Respiratory 18 Rate Blood Pressure 125/55 O2 Sat by Pulse 91 94 Oximetry General appearance: Present: mild distress, well-nourished - EENT Eyes: PERRL, EOM intact ENT: hearing intact, clear oral mucosa Ears: bilateral: normal - Neck Neck: supple, normal ROM - Respiratory Respiratory effort: normal Respiratory: bilateral: CTA - Breasts Breasts: normal - Cardiovascular Heart rate: 78 Rhythm: regular Heart Sounds: Present: S1 & S2. Absent: gallop, rub Extremities: pulses intact, No edema, normal color, Full ROM - Gastrointestinal General gastrointestinal: Present: soft, non-tender, non-distended, normal bowel sounds - Genitourinary Female genitourinary: normal - Integumentary Integumentary: clear, warm, dry - Musculoskeletal Musculoskeletal: 1, strength equal bilaterally - Neurologic Neurologic: moves all extremities - Psychiatric Psychiatric: memory intact, appropriate mood/affect, intact judgment & insight - Labs CBC & Chem 7: 09/16/20 04:47 09/18/20 08:01 Labs: Abnormal lab results 09/17/20 09/17/20 09/18/20 Range/Units 16:57 21:30 08:01 Potassium 3.1 L (3.6-5.0) mmol/L Glucose 112 H (65-100) mg/dL POC Glucose 313 H 304 H (70-105) mg/dL Calcium 8.3 L (8.4-10.2) mg/dL AST 47 H (5-40) units/L Albumin 3.3 L (3.9-5) g/dL 09/18/20 09/18/20 Range/Units 08:05 12:36 Potassium (3.6-5.0) mmol/L Glucose (65-100) mg/dL POC Glucose 125 H 159 H (70-105) mg/dL Calcium (8.4-10.2) mg/dL AST (5-40) units/L Albumin (3.9-5) g/dL HEART Score - HEART Score Troponin: Troponin T < 0.010 ng/mL (0.00-0.029) 09/15/20 18:46
--- NOTE | 2020-09-18 15:40 | Progress Note ---
Assessment and Plan Acute toxic metabolic encephalopathy Severe sepsis Community acquired pneumonia coronavirus-19 infection Acute hypoxemic respiratory failure Hyponatremia at presentation Diabetes, poorly controlled Lactic acidosis Urinary tract infection Tobacco use disorder - continue contact and airborne isolation - Remdesivir as per ID/Pulmonary developed protocols (ordered) - continue systemic steroids for severe COVID-19 infection - follow repeat COVID tests results - zinc and vitamin C supplementation - Monitor inflammatory markers per facility protocol - ferritin, D-dimer, CRP - therapeutic anticoagulation per system Protocol based on d-dimer and clinical considerations (not indicated) - continue to wean supplemental oxygen to keep O2 sats > 92% - Bronchodilators (MARK) with pulm hygiene per RT - continue to avoid nephrotoxins, renally dose all medications - continue mobility protocols to prevent pressure ulcers - PT/OT as tolerated - Wound care per RN/WCT - continue accuchecks with glycemic control per SSI for target blood glucose < 180 mg/dL - Smoking cessation strongly counseled at the bedside - home oxygen evaluation at discharge - GI & VTE prophylaxis - Flu & pneumovax per protocol - Pulmonary out patient follow up for PFTs and optimization of respiratory status - continue other care per attending / other consultants - prn analgesia per pain score ... re-evaluate in am & prn Subjective Date of service: 09/18/20 Principal diagnosis: COVID-19 positive test (U07.1, COVID-19) with Acute Pneumonia (J12.89, O Interval history: Patient is seen today for: Acute toxic metabolic encephalopathy; CAP; Severe sepsis; COVID-19 infection; Acute hypoxemic respiratory failure UTI; DM II Seen and examined at bedside; 24hour events reviewed; nursing and respiratory care staff consulted; no adverse overnight events reported to me; resting in bed; no emsis or overt aspiration; remains on supplemental oxygen therapy Objective Vital Signs - 12hr 09/18/20 09/18/20 09/18/20 05:40 05:42 10:00 Temperature 97.9 F Pulse Rate Respiratory 18 Rate Blood Pressure 125/55 O2 Sat by Pulse 91 94 Oximetry 09/18/20 15:10 Temperature 97.6 F Pulse Rate 82 Respiratory 20 Rate Blood Pressure 137/71 O2 Sat by Pulse 97 Oximetry Constitutional: no acute distress, alert, other (middle aged female with mildly increased respiratory effort at rest) Eyes: non-icteric ENT: oropharynx moist Neck: supple, no lymphadenopathy Effort: normal Ascultation: Bilateral: rhonchi Percussion: Bilateral: not dull Cardiovascular: regular rate and rhythm Gastrointestinal: normoactive bowel sounds, soft, non-tender, non-distended (protuberant) Integumentary: normal Extremities: no cyanosis, no edema, pink and warm, pulses normal Neurologic: non-focal exam (grossly), pupils equal and round, motor strength normal and Psychiatric: mood appropriate, affect normal CBC and BMP: 09/16/20 04:47 09/19/20 06:10 ABG, PT/INR, D-dimer: ABG ABG pH 7.420 (7.320-7.450) 09/15/20 20:02 POC ABG pCO2 31.1 mmHg (32.0-48.0) L 09/15/20 20:02 POC ABG pO2 46.9 mmHg (83-108) L 09/15/20 20:02 POC ABG HCO3 19.7 09/15/20 20:02 ABG O2 Saturation 84.1 (0-100) 09/15/20 20:02 PT/INR, D-dimer PT 14.7 Sec. (12.2-14.9) 09/16/20 04:47 INR 1.10 (0.87-1.13) 09/16/20 04:47 D-Dimer 702.65 ng/mlDDU (0-234) H 09/16/20 21:38 Abnormal lab findings: Abnormal Labs 09/15/20 09/15/20 09/15/20 18:46 18:46 18:46 Hgb 14.4 H MCH MCHC Lymph % (Auto) Lymph # (Auto) Seg Neutrophils % Seg Neutrophils # D-Dimer POC ABG pCO2 POC ABG pO2 ABG Oxyhemoglobin ABG Sodium ABG Potassium ABG Glucose Sodium 128 L Potassium 3.2 L Chloride 89.3 L Glucose 388 H POC Glucose Lactic Acid Calcium 8.2 L Ferritin AST 69 H Ammonia Lactate Dehydrogenase C-Reactive Protein Albumin 3.6 L TSH 34.670 H Free T4 Arterial Blood Glucose Urine WBC (Auto) Salicylates Acetaminophen Coronavirus (PCR) 09/15/20 09/15/20 09/15/20 18:46 18:46 18:46 Hgb MCH MCHC Lymph % (Auto) Lymph # (Auto) Seg Neutrophils % Seg Neutrophils # D-Dimer POC ABG pCO2 POC ABG pO2 ABG Oxyhemoglobin ABG Sodium ABG Potassium ABG Glucose Sodium Potassium Chloride Glucose POC Glucose Lactic Acid Calcium Ferritin AST Ammonia 23.0 L Lactate Dehydrogenase C-Reactive Protein Albumin TSH Free T4 Arterial Blood Glucose Urine WBC (Auto) Salicylates < 0.3 L Acetaminophen 9.1 L Coronavirus (PCR) 09/15/20 09/15/20 09/15/20 19:38 19:40 19:43 Hgb MCH MCHC Lymph % (Auto) Lymph # (Auto) Seg Neutrophils % Seg Neutrophils # D-Dimer POC ABG pCO2 POC ABG pO2 ABG Oxyhemoglobin ABG Sodium ABG Potassium ABG Glucose Sodium Potassium Chloride Glucose POC Glucose 398 H Lactic Acid 2.70 H* Calcium Ferritin AST Ammonia Lactate Dehydrogenase C-Reactive Protein Albumin TSH Free T4 0.10 L Arterial Blood Glucose Urine WBC (Auto) Salicylates Acetaminophen Coronavirus (PCR) 09/15/20 09/15/20 09/16/20 20:02 Unknown 04:47 Hgb 14.8 H MCH 33 H MCHC 36 H Lymph % (Auto) 7.3 L Lymph # (Auto) 0.8 L Seg Neutrophils % 85.7 H Seg Neutrophils # 8.9 H D-Dimer POC ABG pCO2 31.1 L POC ABG pO2 46.9 L ABG Oxyhemoglobin 82.8 L ABG Sodium 129.8 L ABG Potassium 3.1 L ABG Glucose 374 H Sodium Potassium Chloride Glucose POC Glucose Lactic Acid Calcium Ferritin AST Ammonia Lactate Dehydrogenase C-Reactive Protein Albumin TSH Free T4 Arterial Blood Glucose 374 H Urine WBC (Auto) > 182.0 H Salicylates Acetaminophen Coronavirus (PCR) 09/16/20 09/16/20 09/16/20 04:47 07:20 08:00 Hgb MCH MCHC Lymph % (Auto) Lymph # (Auto) Seg Neutrophils % Seg Neutrophils # D-Dimer POC ABG pCO2 POC ABG pO2 ABG Oxyhemoglobin ABG Sodium ABG Potassium ABG Glucose Sodium 135 L D Potassium Chloride 94.1 L Glucose 418 H POC Glucose 403 H Lactic Acid Calcium 8.3 L Ferritin AST Ammonia Lactate Dehydrogenase C-Reactive Protein Albumin TSH Free T4 Arterial Blood Glucose Urine WBC (Auto) Salicylates Acetaminophen Coronavirus (PCR) Positive A 09/16/20 09/16/20 09/16/20 11:43 16:17 21:38 Hgb MCH MCHC Lymph % (Auto) Lymph # (Auto) Seg Neutrophils % Seg Neutrophils # D-Dimer 702.65 H POC ABG pCO2 POC ABG pO2 ABG Oxyhemoglobin ABG Sodium ABG Potassium ABG Glucose Sodium Potassium Chloride Glucose POC Glucose 417 H 353 H Lactic Acid Calcium Ferritin AST Ammonia Lactate Dehydrogenase C-Reactive Protein Albumin TSH Free T4 Arterial Blood Glucose Urine WBC (Auto) Salicylates Acetaminophen Coronavirus (PCR) 09/16/20 09/16/20 09/16/20 21:38 21:38 21:38 Hgb MCH MCHC Lymph % (Auto) Lymph # (Auto) Seg Neutrophils % Seg Neutrophils # D-Dimer POC ABG pCO2 POC ABG pO2 ABG Oxyhemoglobin ABG Sodium ABG Potassium ABG Glucose Sodium Potassium Chloride Glucose POC Glucose Lactic Acid Calcium Ferritin 1089.0 H AST Ammonia Lactate Dehydrogenase 722 H C-Reactive Protein 6.80 H Albumin TSH Free T4 Arterial Blood Glucose Urine WBC (Auto) Salicylates Acetaminophen 5.0 L Coronavirus (PCR) 09/16/20 09/16/20 09/17/20 21:38 22:24 04:59 Hgb MCH MCHC Lymph % (Auto) Lymph # (Auto) Seg Neutrophils % Seg Neutrophils # D-Dimer POC ABG pCO2 POC ABG pO2 ABG Oxyhemoglobin ABG Sodium ABG Potassium ABG Glucose Sodium 134 L 135 L Potassium 3.5 L 3.0 L Chloride 95.1 L 97.2 L Glucose 288 H 149 H POC Glucose 307 H Lactic Acid Calcium 8.2 L Ferritin AST 43 H 49 H Ammonia Lactate Dehydrogenase C-Reactive Protein Albumin 3.7 L 3.3 L TSH Free T4 Arterial Blood Glucose Urine WBC (Auto) Salicylates Acetaminophen Coronavirus (PCR) 09/17/20 09/17/20 09/17/20 12:25 16:57 21:30 Hgb MCH MCHC Lymph % (Auto) Lymph # (Auto) Seg Neutrophils % Seg Neutrophils # D-Dimer POC ABG pCO2 POC ABG pO2 ABG Oxyhemoglobin ABG Sodium ABG Potassium ABG Glucose Sodium Potassium Chloride Glucose POC Glucose 199 H 313 H 304 H Lactic Acid Calcium Ferritin AST Ammonia Lactate Dehydrogenase C-Reactive Protein Albumin TSH Free T4 Arterial Blood Glucose Urine WBC (Auto) Salicylates Acetaminophen Coronavirus (PCR) 09/18/20 09/18/20 09/18/20 08:01 08:05 12:36 Hgb MCH MCHC Lymph % (Auto) Lymph # (Auto) Seg Neutrophils % Seg Neutrophils # D-Dimer POC ABG pCO2 POC ABG pO2 ABG Oxyhemoglobin ABG Sodium ABG Potassium ABG Glucose Sodium Potassium 3.1 L Chloride Glucose 112 H POC Glucose 125 H 159 H Lactic Acid Calcium 8.3 L Ferritin AST 47 H Ammonia Lactate Dehydrogenase C-Reactive Protein Albumin 3.3 L TSH Free T4 Arterial Blood Glucose Urine WBC (Auto) Salicylates Acetaminophen Coronavirus (PCR) Allied health notes reviewed: nursing
[2020-09-18] MEDS: SODIUM CHLORIDE 0.9% 1000 ML 1,000 ML IV SCH (22:07)
[2020-09-18] MEDS: REMDESIVIR 100 MG in SODIUM CHLORIDE 0.9% 250ML 250 ML IV SCH (22:07)
[2020-09-18] MEDS: SODIUM CHLORIDE 0.9% 50 ML IVPB IV SCH (22:08)
[2020-09-18] MEDS: ENOXAPARIN 40 MG/0.4 ML INJ SUB-Q SCH (22:08)
[2020-09-19] MEDS: LEVOTHYROXINE 125 MCG TAB PO SCH (05:46)
[2020-09-19] MEDS: SODIUM CHLORIDE 0.9% 1000 ML 1,000 ML IV SCH ×2 (06:04→22:37)
[2020-09-19] MEDS: INSULIN REGULAR, HUMAN 100 UNITS/1 ML SUB-Q SCH ×4 (07:30→22:41)
[2020-09-19 07:50] LABS: Alanine Aminotransferase 35 units/L (7-56); Albumin 3.5 g/dL (3.9-5); Blood Urea Nitrogen 7 mg/dL (7-17); Calcium 8.2 mg/dL (8.4-10.2); Hemolysis Index 3
[2020-09-19] MEDS: MORPHINE 2 MG/1 ML INJ IV PRN (07:50)
[2020-09-19 07:56] LABS: BUN/Creatinine Ratio 18
--- NOTE | 2020-09-19 09:07 | Progress Note ---
Assessment and Plan Assessment and plan: --COVID-19 infection [positive PCR 09/16/2020] --Acute respiratory failure with hypoxia Current Visit: Yes Status: Acute Currently on 6 L nasal cannula oxygen Wean as tolerated --Bilateral pneumonia due to COVID-19 Current Visit: Yes Status: Acute Plan to address problem: Antibiotics discontinued because of normal for pro calcitonin -- Acute encephalopathy Current Visit: Yes Status: Acute Plan to address problem: Improved Normal sensorium -- Drug ingestion Current Visit: Yes Status: Acute Plan to address problem: Trazodone taken accidentally Patient alert and oriented x3. No overdose --Hyperglycemia Current Visit: Yes Status: Acute Plan to address problem: Adjust insulin dosage --Hypokalemia Current Visit: Yes Status: Acute Plan to address problem: Since supplemented --Hypothyroidism Current Visit: Yes Status: Acute Plan to address problem: Patient placed on levothyroxine . We will monitor TSH. --UTI (urinary tract infection) Current Visit: Yes Status: Acute Plan to address problem: Antibiotics stopped -- DVT prophylaxis Current Visit: Yes Status: Acute Plan to address problem: Patient placed on subcutaneous Lovenox. -- Full code status Current Visit: Yes Status: Acute Plan to address problem: Patient is full code. Trying to wean off oxygen. --Discharge planning issues Patient saturations dropped to 88% at 3 L when dropped from 5 L We will try to decrease the oxygen supplementation every 12 hours and try to wean If she comes down to 2 L will arrange for home oxygen on discharge Plan of care reviewed with the patient and her nurse I also discussed with case management History Interval history: Seen and examined the patient at the bedside this morning Strict COVID-19 isolation and PPE protocols and guidelines followed Patient feels slightly better mild shortness of breath Also complains of mild nausea intermittent Vital signs noted Hospitalist Physical - Constitutional Vitals: Temp Pulse Resp BP Pulse Ox 98.0 F 87 20 165/76 89 09/18/20 21:42 09/18/20 22:00 09/18/20 22:00 09/18/20 21:42 09/18/20 22:00 General appearance: Present: mild distress, well-nourished - EENT Eyes: Present: PERRL, EOM intact - Neck Neck: Present: supple, normal ROM - Respiratory Respiratory effort: normal Respiratory: bilateral: diminished, negative: rales, rhonchi, wheezing - Cardiovascular Rhythm: regular Heart Sounds: Present: S1 & S2 - Extremities Extremities: no ischemia, No edema - Abdominal General gastrointestinal: soft, non-tender, non-distended, normal bowel sounds - Integumentary Integumentary: Present: clear, warm - Psychiatric Psychiatric: appropriate mood/affect, cooperative - Neurologic Neurologic: CNII-XII intact, moves all extremities HEART Score - HEART Score Troponin: Troponin T < 0.010 ng/mL (0.00-0.029) 09/15/20 18:46 Results - Labs CBC & Chem 7: 09/16/20 04:47 09/19/20 06:10 Labs: Laboratory Last Values WBC 10.4 K/mm3 (4.5-11.0) 09/16/20 04:47 RBC 4.53 M/mm3 (3.65-5.03) 09/16/20 04:47 Hgb 14.8 gm/dl (10.1-14.3) H 09/16/20 04:47 Hct 41.2 % (30.3-42.9) 09/16/20 04:47 MCV 91 fl (79-97) 09/16/20 04:47 MCH 33 pg (28-32) H 09/16/20 04:47 MCHC 36 % (30-34) H 09/16/20 04:47 RDW 14.2 % (13.2-15.2) 09/16/20 04:47 Plt Count 163 K/mm3 (140-440) 09/16/20 04:47 Lymph % (Auto) 7.3 % (13.4-35.0) L 09/16/20 04:47 [place] % (Auto) 6.6 % (0.0-7.3) 09/16/20 04:47 Eos % (Auto) 0.0 % (0.0-4.3) 09/16/20 04:47 Baso % (Auto) 0.4 % (0.0-1.8) 09/16/20 04:47 Lymph # (Auto) 0.8 K/mm3 (1.2-5.4) L 09/16/20 04:47 [place] # (Auto) 0.7 K/mm3 (0.0-0.8) 09/16/20 04:47 Eos # (Auto) 0.0 K/mm3 (0.0-0.4) 09/16/20 04:47 Baso # (Auto) 0.0 K/mm3 (0.0-0.1) 09/16/20 04:47 Seg Neutrophils % 85.7 % (40.0-70.0) H 09/16/20 04:47 Seg Neutrophils # 8.9 K/mm3 (1.8-7.7) H 09/16/20 04:47 PT 14.7 Sec. (12.2-14.9) 09/16/20 04:47 INR 1.10 (0.87-1.13) 09/16/20 04:47 D-Dimer 702.65 ng/mlDDU (0-234) H 09/16/20 21:38 ABG pH 7.420 (7.320-7.450) 09/15/20 20:02 POC ABG pCO2 31.1 mmHg (32.0-48.0) L 09/15/20 20:02 POC ABG pO2 46.9 mmHg (83-108) L 09/15/20 20:02 POC ABG HCO3 19.7 09/15/20 20:02 ABG O2 Saturation 84.1 (0-100) 09/15/20 20:02 POC ABG Base Excess -3.6 09/15/20 20:02 ABG Hemoglobin 14.4 (12.0-17.5) 09/15/20 20:02 ABG Oxyhemoglobin 82.8 (94-98) L 09/15/20 20:02 ABG Methemoglobin 0.3 (0.0-1.5) 09/15/20 20:02 ABG Sodium 129.8 mmol/L (136.0-145.0) L 09/15/20 20:02 ABG Potassium 3.1 mmol/L (3.40-4.50) L 09/15/20 20:02 ABG Chloride 98.0 mmol/L (98-107) 09/15/20 20:02 ABG Glucose 374 mg/dL (65-95) H 09/15/20 20:02 VBG pH 7.368 (7.320-7.420) 09/15/20 18:46 Carboxyhemoglobin 1.3 (0.5-1.5) 09/15/20 20:02 FiO2 % 21.0 09/15/20 20:02 Sodium 137 mmol/L (137-145) 09/19/20 06:10 Potassium 2.8 mmol/L (3.6-5.0) L* 09/19/20 06:10 Chloride 97.7 mmol/L (98-107) L 09/19/20 06:10 Carbon Dioxide 24 mmol/L (22-30) 09/19/20 06:10 Anion Gap 18 mmol/L 09/19/20 06:10 BUN 7 mg/dL (7-17) 09/19/20 06:10 Creatinine 0.4 mg/dL (0.6-1.2) L 09/19/20 06:10 Estimated GFR > 60 ml/min 09/19/20 06:10 BUN/Creatinine Ratio 18 % 09/19/20 06:10 Glucose 146 mg/dL (65-100) H 09/19/20 06:10 POC Glucose 175 mg/dL (70-105) H 09/19/20 08:06 Lactic Acid 1.80 mmol/L (0.7-2.0) 09/17/20 04:59 Calcium 8.2 mg/dL (8.4-10.2) L 09/19/20 06:10 Magnesium 2.10 mg/dL (1.7-2.3) 09/16/20 04:47 Ferritin 1089.0 ng/mL (10.0-200.0) H 09/16/20 21:38 Total Bilirubin 0.80 mg/dL (0.1-1.2) 09/19/20 06:10 AST 45 units/L (5-40) H 09/19/20 06:10 ALT 35 units/L (7-56) 09/19/20 06:10 Alkaline Phosphatase 108 units/L (35-129) 09/19/20 06:10 Ammonia 23.0 umol/L (25-60) L 09/15/20 18:46 Lactate Dehydrogenase 722 units/L (91-180) H 09/16/20 21:38 Troponin T < 0.010 ng/mL (0.00-0.029) 09/15/20 18:46 C-Reactive Protein 6.80 mg/dL (0.00-1.30) H 09/16/20 21:38 Total Protein 6.6 g/dL (6.3-8.2) 09/19/20 06:10 Albumin 3.5 g/dL (3.9-5) L 09/19/20 06:10 Albumin/Globulin Ratio 1.1 % 09/19/20 06:10 Procalcitonin 0.05 ng/mL (<0.15) 09/17/20 04:59 TSH 34.670 mlU/mL (0.270-4.200) H 09/15/20 18:46 Free T4 0.10 ng/dL (0.76-1.46) L 09/15/20 19:43 Arterial Blood Glucose 374 mg/dL (65-95) H 09/15/20 20:02 Urine Color Yellow (Yellow) 09/15/20 Unknown Urine Turbidity Cloudy (Clear) 09/15/20 Unknown Urine pH 7.0 (5.0-7.0) 09/15/20 Unknown Ur Specific [place] 1.017 (1.003-1.030) 09/15/20 Unknown Urine Protein 100 mg/dl mg/dL (Negative) 09/15/20 Unknown Urine Glucose (UA) >=500 mg/dL (Negative) 09/15/20 Unknown Urine Ketones 20 mg/dL (Negative) 09/15/20 Unknown Urine Blood Lg (Negative) 09/15/20 Unknown Urine Nitrite Neg (Negative) 09/15/20 Unknown Urine Bilirubin Neg (Negative) 09/15/20 Unknown Urine Urobilinogen < 2.0 mg/dL (<2.0) 09/15/20 Unknown Ur Leukocyte Esterase Lg (Negative) 09/15/20 Unknown Urine WBC (Auto) > 182.0 /HPF (0.0-6.0) H 09/15/20 Unknown Urine RBC (Auto) 92.0 /HPF (0.0-6.0) 09/15/20 Unknown U Epithel Cells (Auto) 4.0 /HPF (0-13.0) 09/15/20 Unknown Urine Bacteria (Auto) 3+ /HPF (Negative) 09/15/20 Unknown Urine WBC Clumps 2+ /HPF 09/15/20 Unknown Urine Yeast (Budding) 3+ /HPF 09/15/20 Unknown Salicylates < 0.3 mg/dL (2.8-20.0) L 09/15/20 18:46 Urine Opiates Screen Presumptive negative 09/15/20 Unknown Urine Methadone Screen Presumptive negative 09/15/20 Unknown Acetaminophen 5.0 ug/mL (10.0-30.0) L 09/16/20 21:38 Ur Barbiturates Screen Presumptive negative 09/15/20 Unknown Ur Phencyclidine Scrn Presumptive negative 09/15/20 Unknown Ur Amphetamines Screen Presumptive negative 09/15/20 Unknown U Benzodiazepines Scrn Presumptive negative 09/15/20 Unknown Urine Cocaine Screen Presumptive negative 09/15/20 Unknown U Marijuana (THC) Screen Presumptive negative 09/15/20 Unknown Drugs of Abuse Note Disclamer 09/15/20 Unknown Plasma/Serum Alcohol < 0.01 % (0-0.07) 09/15/20 18:46 Coronavirus (PCR) Positive (Negative) A 09/16/20 08:00 Microbiology: Microbiology 09/15/20 19:38 Peripheral/Venous Blood Culture - Preliminary NO GROWTH AFTER 72 HOURS 09/15/20 19:38 Peripheral/Venous Blood Culture - Preliminary NO GROWTH AFTER 72 HOURS Laura/IV: Voiding Method External Female Catheter Active Medications - Current Medications Current Medications: Generic Name Dose Route Start Last Admin Trade Name Freq PRN Reason Stop Dose Admin Dexamethasone 6 mg 09/16/20 10:00 09/18/20 09:10 Dexamethasone 4 Mg/Ml Vial IV 09/24/20 10:01 6 mg Q24HR AMANDA Administration Dextrose 50 ml 09/16/20 21:24 Dextrose 50% In Water (25gm) 50 Ml Syringe IV Q30MIN PRN Hypoglycemia Protocol Enoxaparin Sodium 40 mg 09/16/20 22:00 09/18/20 22:08 Enoxaparin 40 Mg/0.4 Ml Inj SUB-Q 40 mg QDAY@2200 AMANDA Administration Protocol Famotidine 20 mg 09/17/20 10:00 09/18/20 09:09 Famotidine 20 Mg Tab PO 20 mg QDAY AMANDA Administration Sodium Chloride 1,000 mls @ 125 mls/hr 09/15/20 22:15 09/19/20 06:04 Nacl 0.9% 1000 Ml IV 125 mls/hr DIRECT AMANDA Administration REMDESIVIR 100 mg/ Sodium 250 mls @ 500 mls/hr 09/17/20 21:00 09/18/20 22:07 Chloride IV 09/20/20 21:29 500 mls/hr Q24HR@2100 AMANDA Administration Potassium Chloride 10 meq in 100 mls @ 100 mls/hr 09/19/20 10:00 Kcl 10meq/100ml IV 09/19/20 11:59 Q1H AMANDA Ibuprofen 600 mg 09/15/20 22:09 Ibuprofen 600 Mg Tab PO Q6H PRN Pain, Mild (1-3) Insulin Human Regular 0 units 09/16/20 07:30 09/18/20 22:17 Insulin Regular, Human 100 Units/1 Ml SUB-Q 3 units ACHS AMANDA Administration Protocol Levothyroxine Sodium 125 mcg 09/18/20 06:00 09/19/20 05:46 Levothyroxine 125 Mcg Tab PO 125 mcg DAILY@0600 AMANDA Administration Magnesium Hydroxide 30 ml 09/15/20 22:09 Magnesium Hydroxide (Mom) Oral Liqd Udc PO Q4H PRN Constipation Morphine Sulfate 2 mg 09/15/20 22:09 09/19/20 07:50 Morphine 2 Mg/1 Ml Inj IV 2 mg Q4H PRN Administration Pain, Moderate (4-6) Morphine Sulfate 4 mg 09/15/20 22:09 Morphine 4 Mg/1 Ml Inj IV Q4H PRN Pain , Severe (7-10) Naloxone HCl 0.1 mg 09/15/20 18:36 Naloxone 0.4 Mg/1 Ml Inj IV Q2MIN PRN Res Rate </= 8 or 02 SAT < 92% Ondansetron HCl 4 mg 09/15/20 22:09 Ondansetron 4 Mg/2 Ml Inj IV Q8H PRN Nausea And Vomiting Potassium Chloride 40 meq 09/19/20 10:00 Potassium Chloride Er 20 Meq Tab PO 09/19/20 13:01 Q3H AMANDA Sertraline HCl 25 mg 09/17/20 12:00 09/18/20 09:09 Sertraline 25 Mg Tab PO 25 mg QDAY AMANDA Administration Sodium Chloride 10 ml 09/16/20 10:00 09/18/20 22:08 Sodium Chloride 0.9% 10 Ml Flush Syringe IV 10 ml BID AMANDA Administration Sodium Chloride 10 ml 09/15/20 22:09 Sodium Chloride 0.9% 10 Ml Flush Syringe IV PRN PRN LINE FLUSH Sodium Chloride 50 ml 09/16/20 22:00 08/05/21 22:08 Sodium Chloride 0.9% 50 Ml Ivpb IV 09/20/20 21:01 50 ml Q24HR@2100 AMANDA Administration Nutrition/Malnutrition Assess - Dietary Evaluation Nutrition/Malnutrition Findings: Nutrition Notes Start: 09/16/20 15:13 Freq: Status: Active Protocol: Document 09/18/20 11:28 MK (Rec: 09/18/20 11:33 MK [email or web address]) Nutrition Notes Initial or Follow up Assessment Current Diagnosis Diabetes,Hypertension, Respiratory Failure Other Pertinent Diagnosis pneu, drug OD, COVID-19 Current Diet Cardiac/Consistent CHO Labs/Tests K 3.1 Pertinent Medications Decadron Height 5 ft 6 in Weight 78.5 kg [place] Body Weight (kg) 59.09 BMI 27.9 Weight Status Appropriate Subjective/Other Information RN reports pt not eating anything. Unable to speak with pt. Burn Absent Trauma Absent Current % PO Negligible Minimum of two criteria No physical signs of malnutrition #1 Nutrition Diagnosis Inadequate oral intake Etiology acute illness As Evidenced by Signs and Symptoms pt refusing meals Is patient on ventilator? No Is Patient Ambulatory and/or Out of Bed Yes REE-([facility]-ambulatory/OOB) [ 1809.275 [id number]] Calculation Used for Recommendations [facility] Additional Notes Protein: (0.8-1g/kg) 63-79g Fluid: 1 ml/kcal Nutrition Intervention Change Diet Order: continue Add Supplement/Snack (indicate name/kcal Glucerna TID /protein ) Provides kCal: 660 Provides Protein (gm) 30 Goal #1 Meet at least 75% of energy and protein needs via PO and ONS Anticipated Discharge Needs: Cardiac/Consistent CHO Follow-Up By: 09/22/20 Additional Comments FU for intakes and ONS tolerance
[2020-09-19] MEDS: POTASSIUM CHLORIDE ER 20 MEQ TAB PO SCH ×3 (10:11→13:30)
[2020-09-19] MEDS: POTASSIUM CHLORIDE 10 MEQ 10 MEQ/100 ML BAG IV SCH ×2 (10:13→11:24)
[2020-09-19] MEDS: dexAMETHasone 4 MG/ML VIAL IV SCH (10:13)
[2020-09-19] MEDS: FAMOTIDINE 20 MG TAB PO SCH (10:14)
[2020-09-19] MEDS: SERTRALINE 25 MG TAB PO SCH (10:14)
--- NOTE | 2020-09-19 14:16 | Progress Note ---
Assessment and Plan Acute toxic metabolic encephalopathy Severe sepsis Community acquired pneumonia coronavirus-19 infection Acute hypoxemic respiratory failure Hyponatremia at presentation Diabetes, poorly controlled Lactic acidosis Urinary tract infection Tobacco use disorder - continue contact and airborne isolation - Remdesivir as per ID/Pulmonary developed protocols (ordered) - continue systemic steroids for severe COVID-19 infection - follow repeat COVID tests results - zinc and vitamin C supplementation - Monitor inflammatory markers per facility protocol - ferritin, D-dimer, CRP - therapeutic anticoagulation per system Protocol based on d-dimer and clinical considerations (not indicated) - continue to wean supplemental oxygen to keep O2 sats > 92% - Bronchodilators (MARK) with pulm hygiene per RT - continue to avoid nephrotoxins, renally dose all medications - continue mobility protocols to prevent pressure ulcers - PT/OT as tolerated - Wound care per RN/WCT - continue accuchecks with glycemic control per SSI for target blood glucose < 180 mg/dL - Smoking cessation strongly counseled at the bedside - home oxygen evaluation at discharge - GI & VTE prophylaxis - Flu & pneumovax per protocol - Pulmonary out patient follow up for PFTs and optimization of respiratory status - continue other care per attending / other consultants - prn analgesia per pain score ... re-evaluate in am & prn Subjective Date of service: 09/19/20 Principal diagnosis: Ac encephalopathy; CAP; Sepsis; COVID-19 infxn; Ac hypoxemic resp failure Interval history: Patient is seen today for: Acute toxic metabolic encephalopathy; CAP; Severe sepsis; COVID-19 infection; Acute hypoxemic respiratory failure UTI; DM II Seen and examined at bedside; 24hour events reviewed; nursing and respiratory care staff consulted; no adverse overnight events reported to me; resting in bed; remains on supplemental oxygen; no N/V/F/C Objective Vital Signs - 12hr 09/19/20 10:00 O2 Sat by Pulse 94 Oximetry Constitutional: no acute distress, alert, other (middle aged female with mildly increased respiratory effort at rest) Eyes: non-icteric ENT: oropharynx moist Neck: supple, no lymphadenopathy Effort: normal Ascultation: Bilateral: rhonchi Percussion: Bilateral: not dull Cardiovascular: regular rate and rhythm Gastrointestinal: normoactive bowel sounds, soft, non-tender, non-distended (protuberant) Integumentary: normal Extremities: no cyanosis, no edema, pink and warm, pulses normal Neurologic: non-focal exam (grossly), pupils equal and round, motor strength normal and Psychiatric: mood appropriate, affect normal CBC and BMP: 09/21/20 02:14 09/21/20 00:46 ABG, PT/INR, D-dimer: ABG ABG pH 7.420 (7.320-7.450) 09/15/20 20:02 POC ABG pCO2 31.1 mmHg (32.0-48.0) L 09/15/20 20:02 POC ABG pO2 46.9 mmHg (83-108) L 09/15/20 20:02 POC ABG HCO3 19.7 09/15/20 20:02 ABG O2 Saturation 84.1 (0-100) 09/15/20 20:02 PT/INR, D-dimer PT 14.7 Sec. (12.2-14.9) 09/16/20 04:47 INR 1.10 (0.87-1.13) 09/16/20 04:47 D-Dimer 702.65 ng/mlDDU (0-234) H 09/16/20 21:38 Abnormal lab findings: Abnormal Labs 09/15/20 09/15/20 09/15/20 18:46 18:46 18:46 Hgb 14.4 H MCH MCHC Lymph % (Auto) Lymph # (Auto) Seg Neutrophils % Seg Neutrophils # D-Dimer POC ABG pCO2 POC ABG pO2 ABG Oxyhemoglobin ABG Sodium ABG Potassium ABG Glucose Sodium 128 L Potassium 3.2 L Chloride 89.3 L Creatinine Glucose 388 H POC Glucose Lactic Acid Calcium 8.2 L Ferritin AST 69 H Ammonia Lactate Dehydrogenase C-Reactive Protein Albumin 3.6 L TSH 34.670 H Free T4 Arterial Blood Glucose Urine WBC (Auto) Salicylates Acetaminophen Coronavirus (PCR) 09/15/20 09/15/20 09/15/20 18:46 18:46 18:46 Hgb MCH MCHC Lymph % (Auto) Lymph # (Auto) Seg Neutrophils % Seg Neutrophils # D-Dimer POC ABG pCO2 POC ABG pO2 ABG Oxyhemoglobin ABG Sodium ABG Potassium ABG Glucose Sodium Potassium Chloride Creatinine Glucose POC Glucose Lactic Acid Calcium Ferritin AST Ammonia 23.0 L Lactate Dehydrogenase C-Reactive Protein Albumin TSH Free T4 Arterial Blood Glucose Urine WBC (Auto) Salicylates < 0.3 L Acetaminophen 9.1 L Coronavirus (PCR) 09/15/20 09/15/20 09/15/20 19:38 19:40 19:43 Hgb MCH MCHC Lymph % (Auto) Lymph # (Auto) Seg Neutrophils % Seg Neutrophils # D-Dimer POC ABG pCO2 POC ABG pO2 ABG Oxyhemoglobin ABG Sodium ABG Potassium ABG Glucose Sodium Potassium Chloride Creatinine Glucose POC Glucose 398 H Lactic Acid 2.70 H* Calcium Ferritin AST Ammonia Lactate Dehydrogenase C-Reactive Protein Albumin TSH Free T4 0.10 L Arterial Blood Glucose Urine WBC (Auto) Salicylates Acetaminophen Coronavirus (PCR) 09/15/20 09/15/20 09/16/20 20:02 Unknown 04:47 Hgb 14.8 H MCH 33 H MCHC 36 H Lymph % (Auto) 7.3 L Lymph # (Auto) 0.8 L Seg Neutrophils % 85.7 H Seg Neutrophils # 8.9 H D-Dimer POC ABG pCO2 31.1 L POC ABG pO2 46.9 L ABG Oxyhemoglobin 82.8 L ABG Sodium 129.8 L ABG Potassium 3.1 L ABG Glucose 374 H Sodium Potassium Chloride Creatinine Glucose POC Glucose Lactic Acid Calcium Ferritin AST Ammonia Lactate Dehydrogenase C-Reactive Protein Albumin TSH Free T4 Arterial Blood Glucose 374 H Urine WBC (Auto) > 182.0 H Salicylates Acetaminophen Coronavirus (PCR) 09/16/20 09/16/20 09/16/20 04:47 07:20 08:00 Hgb MCH MCHC Lymph % (Auto) Lymph # (Auto) Seg Neutrophils % Seg Neutrophils # D-Dimer POC ABG pCO2 POC ABG pO2 ABG Oxyhemoglobin ABG Sodium ABG Potassium ABG Glucose Sodium 135 L D Potassium Chloride 94.1 L Creatinine Glucose 418 H POC Glucose 403 H Lactic Acid Calcium 8.3 L Ferritin AST Ammonia Lactate Dehydrogenase C-Reactive Protein Albumin TSH Free T4 Arterial Blood Glucose Urine WBC (Auto) Salicylates Acetaminophen Coronavirus (PCR) Positive A 09/16/20 09/16/20 09/16/20 11:43 16:17 21:38 Hgb MCH MCHC Lymph % (Auto) Lymph # (Auto) Seg Neutrophils % Seg Neutrophils # D-Dimer 702.65 H POC ABG pCO2 POC ABG pO2 ABG Oxyhemoglobin ABG Sodium ABG Potassium ABG Glucose Sodium Potassium Chloride Creatinine Glucose POC Glucose 417 H 353 H Lactic Acid Calcium Ferritin AST Ammonia Lactate Dehydrogenase C-Reactive Protein Albumin TSH Free T4 Arterial Blood Glucose Urine WBC (Auto) Salicylates Acetaminophen Coronavirus (PCR) 09/16/20 09/16/20 09/16/20 21:38 21:38 21:38 Hgb MCH MCHC Lymph % (Auto) Lymph # (Auto) Seg Neutrophils % Seg Neutrophils # D-Dimer POC ABG pCO2 POC ABG pO2 ABG Oxyhemoglobin ABG Sodium ABG Potassium ABG Glucose Sodium Potassium Chloride Creatinine Glucose POC Glucose Lactic Acid Calcium Ferritin 1089.0 H AST Ammonia Lactate Dehydrogenase 722 H C-Reactive Protein 6.80 H Albumin TSH Free T4 Arterial Blood Glucose Urine WBC (Auto) Salicylates Acetaminophen 5.0 L Coronavirus (PCR) 09/16/20 09/16/20 09/17/20 21:38 22:24 04:59 Hgb MCH MCHC Lymph % (Auto) Lymph # (Auto) Seg Neutrophils % Seg Neutrophils # D-Dimer POC ABG pCO2 POC ABG pO2 ABG Oxyhemoglobin ABG Sodium ABG Potassium ABG Glucose Sodium 134 L 135 L Potassium 3.5 L 3.0 L Chloride 95.1 L 97.2 L Creatinine Glucose 288 H 149 H POC Glucose 307 H Lactic Acid Calcium 8.2 L Ferritin AST 43 H 49 H Ammonia Lactate Dehydrogenase C-Reactive Protein Albumin 3.7 L 3.3 L TSH Free T4 Arterial Blood Glucose Urine WBC (Auto) Salicylates Acetaminophen Coronavirus (PCR) 09/17/20 09/17/20 09/17/20 12:25 16:57 21:30 Hgb MCH MCHC Lymph % (Auto) Lymph # (Auto) Seg Neutrophils % Seg Neutrophils # D-Dimer POC ABG pCO2 POC ABG pO2 ABG Oxyhemoglobin ABG Sodium ABG Potassium ABG Glucose Sodium Potassium Chloride Creatinine Glucose POC Glucose 199 H 313 H 304 H Lactic Acid Calcium Ferritin AST Ammonia Lactate Dehydrogenase C-Reactive Protein Albumin TSH Free T4 Arterial Blood Glucose Urine WBC (Auto) Salicylates Acetaminophen Coronavirus (PCR) 09/18/20 09/18/20 09/18/20 08:01 08:05 12:36 Hgb MCH MCHC Lymph % (Auto) Lymph # (Auto) Seg Neutrophils % Seg Neutrophils # D-Dimer POC ABG pCO2 POC ABG pO2 ABG Oxyhemoglobin ABG Sodium ABG Potassium ABG Glucose Sodium Potassium 3.1 L Chloride Creatinine Glucose 112 H POC Glucose 125 H 159 H Lactic Acid Calcium 8.3 L Ferritin AST 47 H Ammonia Lactate Dehydrogenase C-Reactive Protein Albumin 3.3 L TSH Free T4 Arterial Blood Glucose Urine WBC (Auto) Salicylates Acetaminophen Coronavirus (PCR) 09/18/20 09/18/20 09/19/20 16:57 21:40 06:10 Hgb MCH MCHC Lymph % (Auto) Lymph # (Auto) Seg Neutrophils % Seg Neutrophils # D-Dimer POC ABG pCO2 POC ABG pO2 ABG Oxyhemoglobin ABG Sodium ABG Potassium ABG Glucose Sodium Potassium 2.8 L* Chloride 97.7 L Creatinine 0.4 L Glucose 146 H POC Glucose 180 H 225 H Lactic Acid Calcium 8.2 L Ferritin AST 45 H Ammonia Lactate Dehydrogenase C-Reactive Protein Albumin 3.5 L TSH Free T4 Arterial Blood Glucose Urine WBC (Auto) Salicylates Acetaminophen Coronavirus (PCR) 09/19/20 09/19/20 08:06 11:14 Hgb MCH MCHC Lymph % (Auto) Lymph # (Auto) Seg Neutrophils % Seg Neutrophils # D-Dimer POC ABG pCO2 POC ABG pO2 ABG Oxyhemoglobin ABG Sodium ABG Potassium ABG Glucose Sodium Potassium Chloride Creatinine Glucose POC Glucose 175 H 210 H Lactic Acid Calcium Ferritin AST Ammonia Lactate Dehydrogenase C-Reactive Protein Albumin TSH Free T4 Arterial Blood Glucose Urine WBC (Auto) Salicylates Acetaminophen Coronavirus (PCR) Allied health notes reviewed: nursing
--- NOTE | 2020-09-19 15:28 | Progress Note ---
Assessment and Plan Cultures: Blood culture no growth so far Covid PUI positive A/P: 54-year-old female past medical history bipolar, hypothyroidism, hyperten aubree, diabetes now with: #Acute hypoxic respiratory failure: Likely secondary to pneumonia, bacteri al/aspiration versus viral. Currently on 6 L nasal cannula #Covid pneumonia: PCR positive #Bilateral pneumonia #Drug overdose: With trazodone Recs: -Complete 5 days Remdesivir -Steroids per primary for 10 days -Follow-up culture data -If she decompensates to require 30L HFNC and CRP > 7.5 would give Actemra. Thank you for the consult, we will continue to follow. Dominique Patel MD [facility] O: [phone] F: [phone] Subjective Date of service: 09/19/20 Principal diagnosis: Ac encephalopathy; CAP; Sepsis; COVID-19 infxn; Ac hypoxemic resp failure Interval history: Afebrile, normal white count. Currently on 6 L nasal cannula. This is worsening. Objective - Exam Narrative Exam: Physical exam deferred to reduce risk of transmission of COVID-19. Please refer to primary team's note. - Constitutional Vitals: Vital Signs Temp Pulse Resp BP Pulse Ox 98.1 F 87 20 154/76 100 09/19/20 11:12 09/19/20 11:13 09/19/20 11:12 09/19/20 11:12 09/19/20 11:13 Temperature -Last 24 Hours Temperature 98.1 F Temperature 98.0 F - Labs CBC & Chem 7: 09/16/20 04:47 09/19/20 06:10 Labs: Abnormal lab results 09/18/20 09/18/20 09/19/20 Range/Units 16:57 21:40 06:10 Potassium 2.8 L* (3.6-5.0) mmol/L Chloride 97.7 L (98-107) mmol/L Creatinine 0.4 L (0.6-1.2) mg/dL Glucose 146 H (65-100) mg/dL POC Glucose 180 H 225 H (70-105) mg/dL Calcium 8.2 L (8.4-10.2) mg/dL AST 45 H (5-40) units/L Albumin 3.5 L (3.9-5) g/dL 09/19/20 09/19/20 Range/Units 08:06 11:14 Potassium (3.6-5.0) mmol/L Chloride (98-107) mmol/L Creatinine (0.6-1.2) mg/dL Glucose (65-100) mg/dL POC Glucose 175 H 210 H (70-105) mg/dL Calcium (8.4-10.2) mg/dL AST (5-40) units/L Albumin (3.9-5) g/dL
[2020-09-19] MEDS: REMDESIVIR 100 MG in SODIUM CHLORIDE 0.9% 250ML 250 ML IV SCH (22:38)
[2020-09-19] MEDS: ENOXAPARIN 40 MG/0.4 ML INJ SUB-Q SCH (22:40)
[2020-09-19] MEDS: SODIUM CHLORIDE 0.9% 50 ML IVPB IV SCH (22:40)
--- NOTE | 2020-09-20 05:08 | Progress Note ---
Assessment and Plan Acute hypoxemic resp failure on high flow oxygen Acute toxic metabolic encephalopathy Severe sepsis Community acquired pneumonia Severe COVID-19 pneumonia Bilateral pneumonia Hyponatremia at presentation Diabetes, poorly controlled Lactic acidosis Urinary tract infection Tobacco use disorder She has decompensated based on discussions with RN at the bedside and on review of her medical records. A stat CXR has been ordered, IV lasix 20mg x1, ABG Patient is to be transferred to the ICU for closer monitoring. If she deteriorates any further we need to orally intubate and initiate mechanical ventilatory support. Based on review of ID recommendations and notes, patient should get a dose of Tociluzimab Discussed with the primary service Titrate supplemental oxygen to keep SpO2 89-92% Continue with high flow oxygen therapy NIPPV as clinically indicated Awake proning as tolerated Monitor and trend temp curve, WCC Antibiotics per ID Mobility, off loading, frequent turning per facility protocol to prevent pressure ulcers Accucheck with glycemic control keep blood glucose 140-180 mg/DL while critically ill. Avoid hypoglycemia Maintain sleep-wake cycle, avoid delirium Bronchodilators Conservative fluid management-keep negative balance as tolerated by hemodynamics and renal function Nicotine withdrawal precautions COVID SPECIFIC INTERVENTIONS - Treatment as per ID/Pulmonary developed protocols (Remdesivir, Dexamethasone) - Monitor inflammatory markers per facility protocol - ferritin, D-dimer - Anticoagulation per system Protocol based on d-dimer and clinical considerations - Continue contact and airborne isolation CONDITION: CRITICAL PROGNOSIS: GUARDED CODE STATUS: FULL CODE The high probability of a clinically significant, sudden or life-threatening deterioration of the respiratory system required my full and direct attention, intervention and personal management. The aggregate critical care time was [35] minutes without overlap. Time includes spent on; [x] Data Review and interpretation [x] Patient assessment and monitoring of vital signs [x] Documentation [x] Medication orders and management Subjective Date of service: 09/20/20 Principal diagnosis: Ac encephalopathy; CAP; Sepsis; COVID-19 infxn; Ac hypoxemic resp failure Interval history: Patient is seen today for: Acute toxic metabolic encephalopathy; CAP; Severe sepsis; COVID-19 infection; Acute hypoxemic respiratory failure UTI; DM II Seen and examined at bedside; 24hour events reviewed; nursing and respiratory care staff consulted; no adverse overnight events reported to me; resting in bed in mild resp distress; no emesis or overt aspiration; remains on supplemental oxygen, but overnight has been desatuating per her RN. She is now on Vapothern High flow oxygen therapy with increased work of breathing. No fevers, Objective Vital Signs - 12hr 09/19/20 09/19/20 09/19/20 21:28 21:34 21:50 Temperature 98.1 F Pulse Rate 90 Pulse Rate [ Right Brachial] Respiratory 18 Rate Blood Pressure 159/82 O2 Sat by Pulse 84 88 84 Oximetry 09/19/20 22:00 Temperature Pulse Rate Pulse Rate [ 90 Right Brachial] Respiratory 18 Rate Blood Pressure O2 Sat by Pulse 90 Oximetry Constitutional: lethargic, appears uncomfortable, other (middle aged female with mildly increased respiratory effort at rest) Eyes: non-icteric ENT: oropharynx moist Neck: supple, no lymphadenopathy Effort: mildly labored Ascultation: Bilateral: diminished breath sounds, rhonchi Percussion: Bilateral: not dull Cardiovascular: regular rate and rhythm, other (S1,S2) Gastrointestinal: normoactive bowel sounds, soft, non-tender, non-distended (protuberant) Integumentary: normal Extremities: no cyanosis, no edema, pink and warm, pulses normal Neurologic: non-focal exam (grossly), pupils equal and round, motor strength normal and Psychiatric: other (encephalopatic, moaning and groaning) CBC and BMP: 09/21/20 02:14 09/21/20 00:46 ABG, PT/INR, D-dimer: ABG ABG pH 7.420 (7.320-7.450) 09/15/20 20:02 POC ABG pCO2 31.1 mmHg (32.0-48.0) L 09/15/20 20:02 POC ABG pO2 46.9 mmHg (83-108) L 09/15/20 20:02 POC ABG HCO3 19.7 09/15/20 20:02 ABG O2 Saturation 84.1 (0-100) 09/15/20 20:02 PT/INR, D-dimer PT 14.7 Sec. (12.2-14.9) 09/16/20 04:47 INR 1.10 (0.87-1.13) 09/16/20 04:47 D-Dimer 702.65 ng/mlDDU (0-234) H 09/16/20 21:38 Abnormal lab findings: Abnormal Labs 09/15/20 09/15/2009/15/21 18:46 18:46 18:46 Hgb 14.4 H MCH MCHC Lymph % (Auto) Lymph # (Auto) Seg Neutrophils % Seg Neutrophils # D-Dimer POC ABG pCO2 POC ABG pO2 ABG Oxyhemoglobin ABG Sodium ABG Potassium ABG Glucose Sodium 128 L Potassium 3.2 L Chloride 89.3 L Creatinine Glucose 388 H POC Glucose Lactic Acid Calcium 8.2 L Ferritin AST 69 H Ammonia Lactate Dehydrogenase C-Reactive Protein Albumin 3.6 L TSH 34.670 H Free T4 Arterial Blood Glucose Urine WBC (Auto) Salicylates Acetaminophen Coronavirus (PCR) 09/15/20 09/15/20 09/15/20 18:46 18:46 18:46 Hgb MCH MCHC Lymph % (Auto) Lymph # (Auto) Seg Neutrophils % Seg Neutrophils # D-Dimer POC ABG pCO2 POC ABG pO2 ABG Oxyhemoglobin ABG Sodium ABG Potassium ABG Glucose Sodium Potassium Chloride Creatinine Glucose POC Glucose Lactic Acid Calcium Ferritin AST Ammonia 23.0 L Lactate Dehydrogenase C-Reactive Protein Albumin TSH Free T4 Arterial Blood Glucose Urine WBC (Auto) Salicylates < 0.3 L Acetaminophen 9.1 L Coronavirus (PCR) 09/15/20 09/15/20 09/15/20 19:38 19:40 19:43 Hgb MCH MCHC Lymph % (Auto) Lymph # (Auto) Seg Neutrophils % Seg Neutrophils # D-Dimer POC ABG pCO2 POC ABG pO2 ABG Oxyhemoglobin ABG Sodium ABG Potassium ABG Glucose Sodium Potassium Chloride Creatinine Glucose POC Glucose 398 H Lactic Acid 2.70 H* Calcium Ferritin AST Ammonia Lactate Dehydrogenase C-Reactive Protein Albumin TSH Free T4 0.10 L Arterial Blood Glucose Urine WBC (Auto) Salicylates Acetaminophen Coronavirus (PCR) 09/15/20 09/15/20 09/16/20 20:02 Unknown 04:47 Hgb 14.8 H MCH 33 H MCHC 36 H Lymph % (Auto) 7.3 L Lymph # (Auto) 0.8 L Seg Neutrophils % 85.7 H Seg Neutrophils # 8.9 H D-Dimer POC ABG pCO2 31.1 L POC ABG pO2 46.9 L ABG Oxyhemoglobin 82.8 L ABG Sodium 129.8 L ABG Potassium 3.1 L ABG Glucose 374 H Sodium Potassium Chloride Creatinine Glucose POC Glucose Lactic Acid Calcium Ferritin AST Ammonia Lactate Dehydrogenase C-Reactive Protein Albumin TSH Free T4 Arterial Blood Glucose 374 H Urine WBC (Auto) > 182.0 H Salicylates Acetaminophen Coronavirus (PCR) 09/16/20 09/16/20 09/16/20 04:47 07:20 08:00 Hgb MCH MCHC Lymph % (Auto) Lymph # (Auto) Seg Neutrophils % Seg Neutrophils # D-Dimer POC ABG pCO2 POC ABG pO2 ABG Oxyhemoglobin ABG Sodium ABG Potassium ABG Glucose Sodium 135 L D Potassium Chloride 94.1 L Creatinine Glucose 418 H POC Glucose 403 H Lactic Acid Calcium 8.3 L Ferritin AST Ammonia Lactate Dehydrogenase C-Reactive Protein Albumin TSH Free T4 Arterial Blood Glucose Urine WBC (Auto) Salicylates Acetaminophen Coronavirus (PCR) Positive A 09/16/20 09/16/20 09/16/20 11:43 16:17 21:38 Hgb MCH MCHC Lymph % (Auto) Lymph # (Auto) Seg Neutrophils % Seg Neutrophils # D-Dimer 702.65 H POC ABG pCO2 POC ABG pO2 ABG Oxyhemoglobin ABG Sodium ABG Potassium ABG Glucose Sodium Potassium Chloride Creatinine Glucose POC Glucose 417 H 353 H Lactic Acid Calcium Ferritin AST Ammonia Lactate Dehydrogenase C-Reactive Protein Albumin TSH Free T4 Arterial Blood Glucose Urine WBC (Auto) Salicylates Acetaminophen Coronavirus (PCR) 09/16/20 09/16/20 09/16/20 21:38 21:38 21:38 Hgb MCH MCHC Lymph % (Auto) Lymph # (Auto) Seg Neutrophils % Seg Neutrophils # D-Dimer POC ABG pCO2 POC ABG pO2 ABG Oxyhemoglobin ABG Sodium ABG Potassium ABG Glucose Sodium Potassium Chloride Creatinine Glucose POC Glucose Lactic Acid Calcium Ferritin 1089.0 H AST Ammonia Lactate Dehydrogenase 722 H C-Reactive Protein 6.80 H Albumin TSH Free T4 Arterial Blood Glucose Urine WBC (Auto) Salicylates Acetaminophen 5.0 L Coronavirus (PCR) 09/16/20 09/16/20 09/17/20 21:38 22:24 04:59 Hgb MCH MCHC Lymph % (Auto) Lymph # (Auto) Seg Neutrophils % Seg Neutrophils # D-Dimer POC ABG pCO2 POC ABG pO2 ABG Oxyhemoglobin ABG Sodium ABG Potassium ABG Glucose Sodium 134 L 135 L Potassium 3.5 L 3.0 L Chloride 95.1 L 97.2 L Creatinine Glucose 288 H 149 H POC Glucose 307 H Lactic Acid Calcium 8.2 L Ferritin AST 43 H 49 H Ammonia Lactate Dehydrogenase C-Reactive Protein Albumin 3.7 L 3.3 L TSH Free T4 Arterial Blood Glucose Urine WBC (Auto) Salicylates Acetaminophen Coronavirus (PCR) 09/17/20 09/17/20 09/17/20 12:25 16:57 21:30 Hgb MCH MCHC Lymph % (Auto) Lymph # (Auto) Seg Neutrophils % Seg Neutrophils # D-Dimer POC ABG pCO2 POC ABG pO2 ABG Oxyhemoglobin ABG Sodium ABG Potassium ABG Glucose Sodium Potassium Chloride Creatinine Glucose POC Glucose 199 H 313 H 304 H Lactic Acid Calcium Ferritin AST Ammonia Lactate Dehydrogenase C-Reactive Protein Albumin TSH Free T4 Arterial Blood Glucose Urine WBC (Auto) Salicylates Acetaminophen Coronavirus (PCR) 09/18/20 09/18/20 09/18/20 08:01 08:05 12:36 Hgb MCH MCHC Lymph % (Auto) Lymph # (Auto) Seg Neutrophils % Seg Neutrophils # D-Dimer POC ABG pCO2 POC ABG pO2 ABG Oxyhemoglobin ABG Sodium ABG Potassium ABG Glucose Sodium Potassium 3.1 L Chloride Creatinine Glucose 112 H POC Glucose 125 H 159 H Lactic Acid Calcium 8.3 L Ferritin AST 47 H Ammonia Lactate Dehydrogenase C-Reactive Protein Albumin 3.3 L TSH Free T4 Arterial Blood Glucose Urine WBC (Auto) Salicylates Acetaminophen Coronavirus (PCR) 09/18/20 09/18/20 09/19/20 16:57 21:40 06:10 Hgb MCH MCHC Lymph % (Auto) Lymph # (Auto) Seg Neutrophils % Seg Neutrophils # D-Dimer POC ABG pCO2 POC ABG pO2 ABG Oxyhemoglobin ABG Sodium ABG Potassium ABG Glucose Sodium Potassium 2.8 L* Chloride 97.7 L Creatinine 0.4 L Glucose 146 H POC Glucose 180 H 225 H Lactic Acid Calcium 8.2 L Ferritin AST 45 H Ammonia Lactate Dehydrogenase C-Reactive Protein Albumin 3.5 L TSH Free T4 Arterial Blood Glucose Urine WBC (Auto) Salicylates Acetaminophen Coronavirus (PCR) 09/19/20 09/19/20 09/19/20 08:06 11:14 17:50 Hgb MCH MCHC Lymph % (Auto) Lymph # (Auto) Seg Neutrophils % Seg Neutrophils # D-Dimer POC ABG pCO2 POC ABG pO2 ABG Oxyhemoglobin ABG Sodium ABG Potassium ABG Glucose Sodium Potassium Chloride Creatinine Glucose POC Glucose 175 H 210 H 291 H Lactic Acid Calcium Ferritin AST Ammonia Lactate Dehydrogenase C-Reactive Protein Albumin TSH Free T4 Arterial Blood Glucose Urine WBC (Auto) Salicylates Acetaminophen Coronavirus (PCR) 09/19/20 21:30 Hgb MCH MCHC Lymph % (Auto) Lymph # (Auto) Seg Neutrophils % Seg Neutrophils # D-Dimer POC ABG pCO2 POC ABG pO2 ABG Oxyhemoglobin ABG Sodium ABG Potassium ABG Glucose Sodium Potassium Chloride Creatinine Glucose POC Glucose 232 H Lactic Acid Calcium Ferritin AST Ammonia Lactate Dehydrogenase C-Reactive Protein Albumin TSH Free T4 Arterial Blood Glucose Urine WBC (Auto) Salicylates Acetaminophen Coronavirus (PCR) Chest x-ray: image reviewed Allied health notes reviewed: RT
[2020-09-20] MEDS: LEVOTHYROXINE 125 MCG TAB PO SCH (05:31)
[2020-09-20] MEDS: SODIUM CHLORIDE 0.9% 1000 ML 1,000 ML IV SCH (05:31)
[2020-09-20] MEDS ORDERED: POTASSIUM CHLORIDE ER 20 MEQ TAB PO ONE (07:00)
[2020-09-20] MEDS ORDERED: FUROSEMIDE 20 MG/2 ML INJ IV ONE (07:00)
[2020-09-20 07:11] LABS: Blood Urea Nitrogen 7 mg/dL (7-17); Calcium 8.3 mg/dL (8.4-10.2); Hemolysis Index 14
--- NOTE | 2020-09-20 07:37 | XRay Report ---
CHEST - 1 VIEW INDICATION: resp failure, covid COMPARISON: 09/15/2020 FINDINGS: SUPPORT DEVICES: Stable support device positioning. HEART: Stable cardiomediastinal silhouette. LUNGS/PLEURA: Worsened exam with now moderate to severe patchy multifocal airspace disease in the shea ngs. Only the lung apices remain well aerated. ADDITIONAL FINDINGS: None. IMPRESSION: Worsened exam. Signer Name: Dale Naranjo MD Signed: 09/20/2020 7:32 AM Workstation Name: [id number]
[2020-09-20 07:47] LABS: BUN/Creatinine Ratio 18
[2020-09-20] MEDS: INSULIN REGULAR, HUMAN 100 UNITS/1 ML SUB-Q SCH ×4 (10:17→21:38)
[2020-09-20] MEDS: SERTRALINE 25 MG TAB PO SCH ×2 (11:16→11:59)
[2020-09-20] MEDS: dexAMETHasone 4 MG/ML VIAL IV SCH (11:16)
[2020-09-20] MEDS: FAMOTIDINE 20 MG TAB PO SCH ×2 (11:16→12:00)
[2020-09-20] MEDS ORDERED: ALBUTEROL 2.5 MG/3 ML NEBU IH PRN (12:28)
--- NOTE | 2020-09-20 12:30 | Progress Note ---
Assessment and Plan Assessment and plan: --Acute respiratory failure with severe hypoxia Current Visit: Yes Status: Acute Patient has been on high flow oxygen 40 L and intermittent BiPAP Today patient's chest x-ray worsening infiltrates ABG severe hypoxemia, discussed with respiratory therapist Discussed with treatment coordinator, transfer the patient to ICU for close observation And for intubation if needed --COVID-19 infection [positive PCR 09/16/2020] Current Visit: Yes Status: Acute Continue contact and droplet isolation per protocols Complete 5 days Remdesivir Steroids per primary for 10 days Monitor inflammatory markers Continues to be high flow oxygen intermittent BiPAP Transfer the patient to ICU for possible intubation if needed Pulmonary critical is made aware --Bilateral pneumonia due to COVID-19 Current Visit: Yes Status: Acute Antibiotics discontinued because of normal for pro calcitonin -- Acute metabolic encephalopathy Current Visit: Yes Status: Acute Plan to address problem: Due to underlying disease process -- Drug ingestion Current Visit: Yes Status: Acute Plan to address problem: Trazodone taken accidentally Patient alert and oriented x3. --Hyperglycemia Current Visit: Yes Status: Acute Plan to address problem: Adjust insulin dosage --Hypokalemia Current Visit: Yes Status: Acute Plan to address problem: Since supplemented --Hypothyroidism Current Visit: Yes Status: Acute Plan to address problem: Patient placed on levothyroxine . We will monitor TSH. --UTI (urinary tract infection) Current Visit: Yes Status: Acute Plan to address problem: Antibiotics stopped -- DVT prophylaxis Current Visit: Yes Status: Acute Plan to address problem: Patient placed on subcutaneous Lovenox. -- Full code status Current Visit: Yes Status: Acute Plan to address problem: Patient is full code. Trying to wean off oxygen. We'll closely monitor the patient and adjust the management as needed Plan of care reviewed with the patient's nurse ICU charge nurse Patient is critically ill with poor prognosis We'll try to contact the family The high probability of a clinically significant, sudden or life threatening deterioration of the [ respiratory, infectious, neurologic, endocrine neurologic] system(s) required my full and direct attention, intervention and personal management. The aggregate critical care time was [45] minutes. This time is in addition to time spent performing reported procedures but includes the following: [x] Data Review and interpretation [x] Patient assessment and monitoring of vital signs [x] Documentation [x] Medication orders and management 54-year-old female with known history of bipolar disorder, hypothyroidism, hypertension and diabetes mellitus presents to the emergency room today by EMS having been found on the floor with complaints of generalized weakness versus syncope. Patient indicates that she took some trazodone in order to go to sleep but cannot recall how many tablets she took or the dosage. She was said to be confused upon arrival in the emergency room but became more arousable and was able to respond to questions during the course of her stay in the emergency room. She denies any fever or chills, no chest pain or shortness of breath, no nausea vomiting, no abdominal pain. She denies any headache or dizziness and no diaphoresis. She denies any hematuria or dysuria and denies any cough. Patient denies any sick contacts and no recent travel. Denies any contact with anyone with COVID-19. She was found to be hypoxic upon arrival with O2 saturation of about 86% on room air. Work-up in the emergency room today: Chest x-ray reveals patchy parenchymal opacities in both mid to lower lung zones . Atypical causes of pneumonia including viral pneumonia should be considered. Labs were significant for hyponatremia of 128, hypokalemia 3.2, blood glucose of 388, lactic acid of 2.7, TSH of 34.67 and at free T4 of 0.10. Urinalysis also reveals a UTI. Toxicology screen reveals a Tylenol level of 9.1 CT scan of the head and neck were unremarkable. Patient has been admitted for acute respiratory failure possibly secondary to pneumonia, hyper kalemia, drug overdose and hypoglycemia. Critical care physician has been consulted by the ER physician. 09/16/2020 COVID-pneumonia Coronavirus PCR positive Patient on 5 L nasal cannula oxygen 09/17/2020 Covid pneumonia Covid PCR positive yesterday Patient on 5 L nasal cannula oxygen ID consult appreciated On remdesivir 09/18/2020 Still on 5 L nasal cannula oxygen Saturations dropped to 88% on 3 L nasal cannula oxygen Trying to wean but not possible Continue remdesivir 09/20/2020; Patient is severely hypoxemic, requiring very high flow oxygen And intermittent BiPAP, x-ray chest worsening infiltrates Patient is severely hypoxemic even on BiPAP, treatment coordinator recommend Transfer to ICU for close observation and possible intubation if no improvement I called NOK patient's mother and discussed in detail patient's deterioration, severe hypoxemia Transfer to ICU, possible intubation if needed she informed me that. Her recently With Covid infection, and she herself is Covid positive. History Interval history: Have seen and examined the patient at the bedside today Strict isolation precautions and PPE protocols followed per COVID-19 guidelines Patient isn't severe acute hypoxic respiratory failure Covid positive patient has been on high flow oxygen 40 L, with intermittent BiP AP Patient's chest x-ray worsening infiltrates, and ABG severe hypoxemia Discussed with treatment coordinator/CC Dr. Matamoros was following the patient Recommend transfer to ICU and possible intubation if no improvement I also talked with ICU charge nurse Janet Deanne for bed availability On examination patient is in acute distress, severely hypoxemic, on BiPAP Increased work of breathing, slightly confused Vital signs reviewed Hospitalist Physical - Constitutional Vitals: Temp Pulse Resp BP Pulse Ox 97.6 F 123 H 40 H 157/89 86 09/20/20 00:05 09/20/20 11:00 09/20/20 11:00 09/20/20 00:05 09/20/20 12:13 General appearance: Present: severe distress, well-nourished - EENT Eyes: Present: PERRL, EOM intact - Neck Neck: Present: supple, normal ROM - Respiratory Respiratory effort: labored, accessory muscle use Respiratory: bilateral: diminished, rhonchi, negative: rales, wheezing - Cardiovascular Rhythm: regular Heart Sounds: Present: S1 & S2 (Tachycardia) - Extremities Extremities: no ischemia, No edema - Abdominal General gastrointestinal: soft, non-tender, non-distended, normal bowel sounds - Integumentary Integumentary: Present: clear, warm - Psychiatric Psychiatric: appropriate mood/affect, agitated, other (Confused at times) - Neurologic Neurologic: moves all extremities HEART Score - HEART Score Troponin: Troponin T < 0.010 ng/mL (0.00-0.029) 09/15/20 18:46 Results - Labs CBC & Chem 7: 09/16/20 04:47 09/20/20 10:44 Labs: Laboratory Last Values WBC 10.4 K/mm3 (4.5-11.0) 09/16/20 04:47 RBC 4.53 M/mm3 (3.65-5.03) 09/16/20 04:47 Hgb 14.8 gm/dl (10.1-14.3) H 09/16/20 04:47 Hct 41.2 % (30.3-42.9) 09/16/20 04:47 MCV 91 fl (79-97) 09/16/20 04:47 MCH 33 pg (28-32) H 09/16/20 04:47 MCHC 36 % (30-34) H 09/16/20 04:47 RDW 14.2 % (13.2-15.2) 09/16/20 04:47 Plt Count 163 K/mm3 (140-440) 09/16/20 04:47 Lymph % (Auto) 7.3 % (13.4-35.0) L 09/16/20 04:47 [place] % (Auto) 6.6 % (0.0-7.3) 09/16/20 04:47 Eos % (Auto) 0.0 % (0.0-4.3) 09/16/20 04:47 Baso % (Auto) 0.4 % (0.0-1.8) 09/16/20 04:47 Lymph # (Auto) 0.8 K/mm3 (1.2-5.4) L 09/16/20 04:47 [place] # (Auto) 0.7 K/mm3 (0.0-0.8) 09/16/20 04:47 Eos # (Auto) 0.0 K/mm3 (0.0-0.4) 09/16/20 04:47 Baso # (Auto) 0.0 K/mm3 (0.0-0.1) 09/16/20 04:47 Seg Neutrophils % 85.7 % (40.0-70.0) H 09/16/20 04:47 Seg Neutrophils # 8.9 K/mm3 (1.8-7.7) H 09/16/20 04:47 PT 14.7 Sec. (12.2-14.9) 09/16/20 04:47 INR 1.10 (0.87-1.13) 09/16/20 04:47 D-Dimer 4940.20 ng/mlDDU (0-234) H 09/20/20 05:23 ABG pH 7.289 (7.320-7.450) L 09/20/20 10:46 POC ABG pCO2 35.7 mmHg (32.0-48.0) 09/20/20 10:46 POC ABG pO2 50.1 mmHg (83-108) L 09/20/20 10:46 POC ABG HCO3 16.7 09/20/20 10:46 ABG O2 Saturation 81.8 (0-100) 09/20/20 10:46 POC ABG Base Excess -8.9 09/20/20 10:46 ABG Hemoglobin 16.6 (12.0-17.5) 09/20/20 10:46 ABG Oxyhemoglobin 80.8 (94-98) L 09/20/20 10:46 ABG Methemoglobin 0.3 (0.0-1.5) 09/20/20 10:46 ABG Sodium 130.8 mmol/L (136.0-145.0) L 09/20/20 10:46 ABG Potassium 3.7 mmol/L (3.40-4.50) 09/20/20 10:46 ABG Chloride 97.0 mmol/L (98-107) L 09/20/20 10:46 ABG Glucose 275 mg/dL (65-95) H 09/20/20 10:46 VBG pH 7.368 (7.320-7.420) 09/15/20 18:46 Carboxyhemoglobin 0.9 (0.5-1.5) 09/20/20 10:46 FiO2 % 100.0 09/20/20 10:46 Sodium 131 mmol/L (137-145) L 09/20/20 05:23 Potassium 3.9 mmol/L (3.6-5.0) 09/20/20 10:44 Chloride 95.4 mmol/L (98-107) L 09/20/20 05:23 Carbon Dioxide 18 mmol/L (22-30) L 09/20/20 05:23 Anion Gap 21 mmol/L 09/20/20 05:23 BUN 7 mg/dL (7-17) 09/20/20 05:23 Creatinine 0.4 mg/dL (0.6-1.2) L 09/20/20 05:23 Estimated GFR > 60 ml/min 09/20/20 05:23 BUN/Creatinine Ratio 18 % 09/20/20 05:23 Glucose 169 mg/dL (65-100) H 09/20/20 05:23 POC Glucose 262 mg/dL (70-105) H 09/20/20 11:58 Lactic Acid 1.80 mmol/L (0.7-2.0) 09/17/20 04:59 Calcium 8.3 mg/dL (8.4-10.2) L 09/20/20 05:23 Magnesium 1.80 mg/dL (1.7-2.3) 09/20/20 05:23 Ferritin 738.9 ng/mL (10.0-200.0) H 09/20/20 05:23 Total Bilirubin 0.80 mg/dL (0.1-1.2) 09/19/20 06:10 AST 45 units/L (5-40) H 09/19/20 06:10 ALT 35 units/L (7-56) 09/19/20 06:10 Alkaline Phosphatase 108 units/L (35-129) 09/19/20 06:10 Ammonia 23.0 umol/L (25-60) L 09/15/20 18:46 Lactate Dehydrogenase 882 units/L (91-180) H 09/20/20 05:23 Troponin T < 0.010 ng/mL (0.00-0.029) 09/15/20 18:46 C-Reactive Protein 11.40 mg/dL (0.00-1.30) H 09/20/20 05:23 Total Protein 6.6 g/dL (6.3-8.2) 09/19/20 06:10 Albumin 3.5 g/dL (3.9-5) L 09/19/20 06:10 Albumin/Globulin Ratio 1.1 % 09/19/20 06:10 Procalcitonin 0.05 ng/mL (<0.15) 09/17/20 04:59 TSH 34.670 mlU/mL (0.270-4.200) H 09/15/20 18:46 Free T4 0.10 ng/dL (0.76-1.46) L 09/15/20 19:43 Arterial Blood Glucose 275 mg/dL (65-95) H 09/20/20 10:46 Arterial Blood Ionized Calcium 4.2 mg/dL (4.6-5.3) L 09/20/20 10:46 Urine Color Yellow (Yellow) 09/15/20 Unknown Urine Turbidity Cloudy (Clear) 09/15/20 Unknown Urine pH 7.0 (5.0-7.0) 09/15/20 Unknown Ur Specific [place] 1.017 (1.003-1.030) 09/15/20 Unknown Urine Protein 100 mg/dl mg/dL (Negative) 09/15/20 Unknown Urine Glucose (UA) >=500 mg/dL (Negative) 09/15/20 Unknown Urine Ketones 20 mg/dL (Negative) 09/15/20 Unknown Urine Blood Lg (Negative) 09/15/20 Unknown Urine Nitrite Neg (Negative) 09/15/20 Unknown Urine Bilirubin Neg (Negative) 09/15/20 Unknown Urine Urobilinogen < 2.0 mg/dL (<2.0) 09/15/20 Unknown Ur Leukocyte Esterase Lg (Negative) 09/15/20 Unknown Urine WBC (Auto) > 182.0 /HPF (0.0-6.0) H 09/15/20 Unknown Urine RBC (Auto) 92.0 /HPF (0.0-6.0) 09/15/20 Unknown U Epithel Cells (Auto) 4.0 /HPF (0-13.0) 09/15/20 Unknown Urine Bacteria (Auto) 3+ /HPF (Negative) 09/15/20 Unknown Urine WBC Clumps 2+ /HPF 09/15/20 Unknown Urine Yeast (Bud[place]) 3+ /HPF 09/15/20 Unknown Salicylates < 0.3 mg/dL (2.8-20.0) L 09/15/20 18:46 Urine Opiates Screen Presumptive negative 09/15/20 Unknown Urine Methadone Screen Presumptive negative 09/15/20 Unknown Acetaminophen 5.0 ug/mL (10.0-30.0) L 09/16/20 21:38 Ur Barbiturates Screen Presumptive negative 09/15/20 Unknown Ur Phencyclidine Scrn Presumptive negative 09/15/20 Unknown Ur Amphetamines Screen Presumptive negative 09/15/20 Unknown U Benzodiazepines Scrn Presumptive negative 09/15/20 Unknown Urine Cocaine Screen Presumptive negative 09/15/20 Unknown U Marijuana (THC) Screen Presumptive negative 09/15/20 Unknown Drugs of Abuse Note Disclamer 09/15/20 Unknown Plasma/Serum Alcohol < 0.01 % (0-0.07) 09/15/20 18:46 Coronavirus (PCR) Positive (Negative) A 09/16/20 08:00 Microbiology: Microbiology 09/15/20 19:38 Peripheral/Venous Blood Culture - Preliminary NO GROWTH AFTER 4 DAYS 09/15/20 19:38 Peripheral/Venous Blood Culture - Preliminary NO GROWTH AFTER 4 DAYS Laura/IV: Voiding Method External Female Catheter Active Medications - Current Medications Current Medications: Generic Name Dose Route Start Last Admin Trade Name Freq PRN Reason Stop Dose Admin Albuterol 2.5 mg 09/20/20 12:28 Albuterol 2.5 Mg/3 Ml Nebu IH Q4HRT PRN Shortness Of Breath Dexamethasone 6 mg 09/16/20 10:00 09/20/20 11:16 Dexamethasone 4 Mg/Ml Vial IV 09/24/20 10:01 6 mg Q24HR AMANDA Administration Dextrose 50 ml 09/16/20 21:24 Dextrose 50% In Water (25gm) 50 Ml Syringe IV Q30MIN PRN Hypoglycemia Protocol Enoxaparin Sodium 40 mg 09/16/20 22:00 09/19/20 22:40 Enoxaparin 40 Mg/0.4 Ml Inj SUB-Q 40 mg QDAY@2200 AMANDA Administration Protocol Famotidine 20 mg 09/17/20 10:00 09/20/20 12:00 Famotidine 20 Mg Tab PO Not Given QDAY AMANDA REMDESIVIR 100 mg/ Sodium 250 mls @ 500 mls/hr 09/17/20 21:00 09/19/20 22:38 Chloride IV 09/20/20 21:29 500 mls/hr Q24HR@2100 AMANDA Administration Ibuprofen 600 mg 09/15/20 22:09 Ibuprofen 600 Mg Tab PO Q6H PRN Pain, Mild (1-3) Insulin Human Regular 0 units 09/16/20 07:30 09/20/20 10:17 Insulin Regular, Human 100 Units/1 Ml SUB-Q Not Given ACHS [facility] Protocol Levothyroxine Sodium 125 mcg 09/18/20 06:00 09/20/20 05:31 Levothyroxine 125 Mcg Tab PO 125 mcg DAILY@0600 AMANDA Administration Magnesium Hydroxide 30 ml 09/15/20 22:09 Magnesium Hydroxide (Mom) Oral Liqd Udc PO Q4H PRN Constipation Morphine Sulfate 2 mg 09/15/20 22:09 09/19/20 07:50 Morphine 2 Mg/1 Ml Inj IV 2 mg Q4H PRN Administration Pain, Moderate (4-6) Morphine Sulfate 4 mg 09/15/20 22:09 Morphine 4 Mg/1 Ml Inj IV Q4H PRN Pain , Severe (7-10) Naloxone HCl 0.1 mg 09/15/20 18:36 Naloxone 0.4 Mg/1 Ml Inj IV Q2MIN PRN Res Rate </= 8 or 02 SAT < 92% Ondansetron HCl 4 mg 09/15/20 22:09 Ondansetron 4 Mg/2 Ml Inj IV Q8H PRN Nausea And Vomiting Sertraline HCl 25 mg 09/17/20 12:00 09/20/20 11:59 Sertraline 25 Mg Tab PO Not Given QDAY AMANDA Sodium Chloride 10 ml 09/16/20 10:00 09/20/20 11:17 Sodium Chloride 0.9% 10 Ml Flush Syringe IV 10 ml BID AMANDA Administration Sodium Chloride 10 ml 09/15/20 22:09 Sodium Chloride 0.9% 10 Ml Flush Syringe IV PRN PRN LINE FLUSH Sodium Chloride 50 ml 09/16/20 22:00 09/19/20 22:40 Sodium Chloride 0.9% 50 Ml Ivpb IV 09/20/20 21:01 50 ml Q24HR@2100 AMANDA Administration Nutrition/Malnutrition Assess - Dietary Evaluation Nutrition/Malnutrition Findings: Nutrition Notes Start: 09/16/20 15:13 Freq: Status: Active Protocol: Document 09/18/20 11:28 (Rec: 09/18/20 11:33 [email or web address]) Nutrition Notes Initial or Follow up Assessment Current Diagnosis Diabetes,Hypertension, Respiratory Failure Other Pertinent Diagnosis pneu, drug OD, COVID-19 Current Diet Cardiac/Consistent CHO Labs/Tests K 3.1 Pertinent Medications Decadron Height 5 ft 6 in Weight 78.5 kg [place] Body Weight (kg) 59.09 BMI 27.9 Weight Status Appropriate Subjective/Other Information RN reports pt not eating anything. Unable to speak with pt. Burn Absent Trauma Absent Current % PO Negligible Minimum of two criteria No physical signs of malnutrition #1 Nutrition Diagnosis Inadequate oral intake Etiology acute illness As Evidenced by Signs and Symptoms pt refusing meals Is patient on ventilator? No Is Patient Ambulatory and/or Out of Bed Yes REE-([place]. Jeor-ambulatory/OOB) [ 1809.275 [id number]] Calculation Used for Recommendations [place] Oneil Additional Notes Protein: (0.8-1g/kg) 63-79g Fluid: 1 ml/kcal Nutrition Intervention Change Diet Order: continue Add Supplement/Snack (indicate name/kcal Glucerna TID /protein ) Provides kCal: 660 Provides Protein (gm) 30 Goal #1 Meet at least 75% of energy and protein needs via PO and ONS Anticipated Discharge Needs: Cardiac/Consistent CHO Follow-Up By: 09/22/20 Additional Comments FU for intakes and ONS tolerance
[2020-09-20] MEDS ORDERED: SODIUM CHLORIDE 0.9% 1000 ML 1,000 ML ONE (18:32)
[2020-09-20] MEDS ORDERED: MINERAL OIL/PETROLATUM, WHITE OPHTH OINT 3.5 GM OU PRN (19:02)
[2020-09-20] MEDS ORDERED: LIP THERAPY VASELINE TP PRN (19:02)
[2020-09-20] MEDS ORDERED: fentaNYL 100 MCG/2 ML INJ IV PRN (19:02)
[2020-09-20] MEDS ORDERED: ROCURONIUM 50 MG/5 ML INJ IV ONE (19:52)
[2020-09-20] MEDS ORDERED: SUCCINYLCHOLINE CHLORIDE 200 MG/10 ML INJ MDV ONE (19:53)
[2020-09-20] MEDS ORDERED: ETOMIDATE 20 MG/10 ML INJ IV ONE (19:53)
[2020-09-20] MEDS ORDERED: propofoL 200 MG/20 ML VIAL IV ONE (20:01)
--- NOTE | 2020-09-20 21:02 | XRay Report ---
CHEST 1 VIEW 09/20/2020 8:12 PM INDICATION / CLINICAL INFORMATION: ett placement. COMPARISON: 6:51 AM same day FINDINGS: SUPPORT DEVICES: New ET tube has tip 8.5 cm above anshul HEART / MEDIASTINUM: No significant abnormality. LUNGS / PLEURA: Bilateral pulmonary opacities have slightly improved. No pneumothorax. ADDITIONAL FINDINGS: No significant additional findings. IMPRESSION: 1. Improving bilateral pneumonia Signer Name: Antonio Christian MD Signed: 09/20/2020 8:57 PM Workstation Name: [id number]
[2020-09-20] MEDS: ENOXAPARIN 40 MG/0.4 ML INJ SUB-Q SCH (21:03)
[2020-09-20] MEDS: fentaNYL DRIP Premix 2,000 MCG/100 ML BAG IV SCH (21:03)
[2020-09-20] MEDS: SODIUM CHLORIDE 0.9% 50 ML IVPB IV SCH (21:11)
[2020-09-20] MEDS: REMDESIVIR 100 MG in SODIUM CHLORIDE 0.9% 250ML 250 ML IV SCH (21:12)
[2020-09-20] MEDS ORDERED: SODIUM CHLORIDE 0.9% 1000 ML 500 ML IV ONE (23:50)
[2020-09-21 01:18] LABS: BUN/Creatinine Ratio 26; Blood Urea Nitrogen 23 mg/dL (7-17); Calcium 6.7 mg/dL (8.4-10.2); Hemolysis Index 30
[2020-09-21] MEDS ORDERED: HEPARIN 10,000 UNITS/10 ML VIAL IV PRN (01:42)
[2020-09-21] MEDS: HEPARIN/ 0.45% NACL DRIP 25,000 UNIT/500 ML BAG IV SCH (02:15)
[2020-09-21] MEDS ORDERED: SODIUM CHLORIDE 0.9% 250ML 250 ML IV ONE (02:24)
[2020-09-21 02:34] LABS: Chol/HDL Ratio 6.31 %
[2020-09-21 02:50] LABS: Hematocrit 38.8 % (30.3-42.9); Hemoglobin 13.5 gm/dl (10.1-14.3)
[2020-09-21 02:57] LABS: INR 1.65 (0.87-1.13)
[2020-09-21 02:58] LABS: Partial Thromboplastin Time 38.2 Sec. (24.2-36.6)
--- NOTE | 2020-09-21 04:05 | XRay Report ---
CHEST - 1 VIEW INDICATION: follow up respiratory failure COMPARISON: Yesterday FINDINGS: SUPPORT DEVICES: Stable support device positioning. HEART: Stable cardiomediastinal silhouette. LUNGS/PLEURA: Persistent mild patchy multifocal airspace disease. ADDITIONAL FINDINGS: None. IMPRESSION: Unchanged exam. Signer Name: Dale Naranjo MD Signed: 09/21/2020 4:01 AM Workstation Name: [id number]
[2020-09-21] MEDS: LEVOTHYROXINE 125 MCG TAB PO SCH (05:39)
[2020-09-21] MEDS: INSULIN REGULAR, HUMAN 100 UNITS/1 ML SUB-Q SCH ×3 (08:11→22:49)
[2020-09-21] MEDS: fentaNYL DRIP Premix 2,000 MCG/100 ML BAG IV SCH ×2 (08:11→18:46)
--- NOTE | 2020-09-21 09:08 | Progress Note ---
Assessment and Plan Assessment and plan: --Acute respiratory failure with severe hypoxia /on mechanical ventilation Current Visit: Yes Status: Acute Intubated on 09/20/2020, on ventilatory support Patient has been on high flow oxygen 40 L and intermittent BiPAP Today patient's chest x-ray worsening infiltrates ABG severe hypoxemia, discussed with respiratory therapist Discussed with director of logistics, transfer the patient to ICU for close observation And for intubation if needed --COVID-19 infection [positive PCR 09/16/2020] Current Visit: Yes Status: Acute Continue contact and droplet isolation per protocols Complete 5 days Remdesivir Steroids per primary for 10 days Monitor inflammatory markers Continues to be high flow oxygen intermittent BiPAP Transfer the patient to ICU for possible intubation if needed Pulmonary critical is made aware --Bilateral pneumonia due to COVID-19 Current Visit: Yes Status: Acute Antibiotics discontinued because of normal for pro calcitonin --Positive troponins; non-ST elevation OK Current Visit: Yes Status: Acute Probably nonspecific , continue heparin drip, Aspirin, beta-blockers, nitrates Echocardiogram, cardiology evaluation -- Acute metabolic encephalopathy Current Visit: Yes Status: Acute Plan to address problem: Due to underlying disease process -- Drug ingestion Current Visit: Yes Status: Acute Plan to address problem: Trazodone taken accidentally Patient alert and oriented x3. --Hyperglycemia Current Visit: Yes Status: Acute Plan to address problem: Adjust insulin dosage --Hypokalemia Current Visit: Yes Status: Acute Plan to address problem: Since supplemented --Hypothyroidism Current Visit: Yes Status: Acute Plan to address problem: Patient placed on levothyroxine . We will monitor TSH. --UTI (urinary tract infection) Current Visit: Yes Status: Acute Plan to address problem: Antibiotics stopped -- DVT prophylaxis Current Visit: Yes Status: Acute Plan to address problem: Patient placed on subcutaneous Lovenox. -- Full code status Current Visit: Yes Status: Acute Plan to address problem: Patient is full code. Trying to wean off oxygen. We'll closely monitor the patient and adjust the management as needed Plan of care reviewed with the patient's nurse ICU charge nurse Patient is critically ill with poor prognosis We'll try to contact the family On 09/20/2020 .I called NOK patient's mother and discussed in detail patient's deterioration, severe hypoxemia Transfer to ICU, possible intubation if needed she informed me that. Her recently With Covid infection, and she herself is Covid positive. The high probability of a clinically significant, sudden or life threatening deterioration of the [ respiratory, infectious, neurologic, endocrine neurologic] system(s) required my full and direct attention, intervention and personal management. The aggregate critical care time was [45] minutes. This time is in addition to time spent performing reported procedures but includes the following: [x] Data Review and interpretation [x] Patient assessment and monitoring of vital signs [x] Documentation [x] Medication orders and management 54-year-old female with known history of bipolar disorder, hypothyroidism, hypertension and diabetes mellitus presents to the emergency room today by EMS having been found on the floor with complaints of generalized weakness versus syncope. Patient indicates that she took some trazodone in order to go to sleep but cannot recall how many tablets she took or the dosage. She was said to be confused upon arrival in the emergency room but became more arousable and was able to respond to questions during the course of her stay in the emergency room. She denies any fever or chills, no chest pain or shortness of breath, no nausea vomiting, no abdominal pain. She denies any headache or dizziness and no diaphoresis. She denies any hematuria or dysuria and denies any cough. Patient denies any sick contacts and no recent travel. Denies any contact with anyone with COVID-19. She was found to be hypoxic upon arrival with O2 saturation of about 86% on room air. Work-up in the emergency room today: Chest x-ray reveals patchy parenchymal opacities in both mid to lower lung z ones. Atypical causes of pneumonia including viral pneumonia should be considered. Labs were significant for hyponatremia of 128, hypokalemia 3.2, blood glucose of 388, lactic acid of 2.7, TSH of 34.67 and at free T4 of 0.10. Urinalysis also reveals a UTI. Toxicology screen reveals a Tylenol level of 9.1 CT scan of the head and neck were unremarkable. Patient has been admitted for acute respiratory failure possibly secondary to pneumonia, hyper kalemia, drug overdose and hypoglycemia. Critical care physician has been consulted by the ER physician. 09/16/2020 COVID-pneumonia Coronavirus PCR positive Patient on 5 L nasal cannula oxygen 09/17/2020 Covid pneumonia Covid PCR positive yesterday Patient on 5 L nasal cannula oxygen ID consult appreciated On remdesivir 09/18/2020 Still on 5 L nasal cannula oxygen Saturations dropped to 88% on 3 L nasal cannula oxygen Trying to wean but not possible Continue remdesivir 09/20/2020; Patient is severely hypoxemic, requiring very high flow oxygen And intermittent BiPAP, x-ray chest worsening infiltrates Patient is severely hypoxemic even on BiPAP, director of logistics recommend Transfer to ICU for close observation and possible intubation if no improvement I called NOK patient's mother and discussed in detail patient's deterioration, severe hypoxemia Transfer to ICU, possible intubation if needed she informed me that. Her recently With Covid infection, and she herself is Covid positive. 09/21/2020; patient was intubated yesterday On ventilatory support Non-ST elevation OK, check echocardiogram Cardiology evaluation noted and appreciated Discussed with History Interval history: I seen and examined the patient at bedside in ICU this morning. Patient is COVID-19 intubated on ventilatory support Strict isolation precautions and PPE protocols followed per COVID-19 guidelines Patient is intubated on ventilatory support Vital signs noted Hospitalist Physical - Constitutional Vitals: Temp Pulse Resp BP Pulse Ox 99.4 F 80 17 93/50 91 09/21/20 07:40 09/21/20 06:30 09/21/20 06:30 09/21/20 06:30 09/21/20 06:15 General appearance: Present: no acute distress, well-nourished, other (Intubated on vent) - EENT Eyes: Present: PERRL, EOM intact ENT: other (G-tube and Dobbhoff in place) - Neck Neck: Present: supple, normal ROM - Respiratory Respiratory effort: normal Respiratory: bilateral: diminished, rhonchi, negative: rales, wheezing - Cardiovascular Rhythm: regular Heart Sounds: Present: S1 & S2 - Extremities Extremities: no ischemia, No edema - Abdominal General gastrointestinal: soft, non-tender, non-distended, normal bowel sounds - Integumentary Integumentary: Present: clear, warm - Psychiatric Psychiatric: other (Intubated on vent) - Neurologic Neurologic: other (Intubated on vent) HEART Score - HEART Score Troponin: Troponin T 0.444 ng/mL (0.00-0.029) H* 09/21/20 00:46 Results - Labs CBC & Chem 7: 09/21/20 02:14 09/21/20 00:46 Labs: Laboratory Last Values WBC 10.4 K/mm3 (4.5-11.0) 09/16/20 04:47 RBC 4.53 M/mm3 (3.65-5.03) 09/16/20 04:47 Hgb 13.5 gm/dl (10.1-14.3) 09/21/20 02:14 Hct 38.8 % (30.3-42.9) 09/21/20 02:14 MCV 91 fl (79-97) 09/16/20 04:47 MCH 33 pg (28-32) H 09/16/20 04:47 MCHC 36 % (30-34) H 09/16/20 04:47 RDW 14.2 % (13.2-15.2) 09/16/20 04:47 Plt Count 176 K/mm3 (140-440) 09/21/20 02:14 Lymph % (Auto) 7.3 % (13.4-35.0) L 09/16/20 04:47 [place] % (Auto) 6.6 % (0.0-7.3) 09/16/20 04:47 Eos % (Auto) 0.0 % (0.0-4.3) 09/16/20 04:47 Baso % (Auto) 0.4 % (0.0-1.8) 09/16/20 04:47 Lymph # (Auto) 0.8 K/mm3 (1.2-5.4) L 09/16/20 04:47 [place] # (Auto) 0.7 K/mm3 (0.0-0.8) 09/16/20 04:47 Eos # (Auto) 0.0 K/mm3 (0.0-0.4) 09/16/20 04:47 Baso # (Auto) 0.0 K/mm3 (0.0-0.1) 09/16/20 04:47 Seg Neutrophils % 85.7 % (40.0-70.0) H 09/16/20 04:47 Seg Neutrophils # 8.9 K/mm3 (1.8-7.7) H 09/16/20 04:47 PT 20.0 Sec. (12.2-14.9) H 09/21/20 02:14 INR 1.65 (0.87-1.13) H 09/21/20 02:14 APTT 38.2 Sec. (24.2-36.6) H 09/21/20 02:14 D-Dimer 4940.20 ng/mlDDU (0-234) H 09/20/20 05:23 ABG pH 7.325 (7.320-7.450) 09/21/20 03:22 POC ABG pCO2 37.7 mmHg (32.0-48.0) 09/21/20 03:22 POC ABG pO2 70.3 mmHg (83-108) L 09/21/20 03:22 POC ABG HCO3 19.2 09/21/20 03:22 ABG O2 Saturation 93.1 (0-100) 09/21/20 03:22 POC ABG Base Excess -6.2 09/21/20 03:22 ABG Hemoglobin 14.5 (12.0-17.5) 09/21/20 03:22 ABG Oxyhemoglobin 92.2 (94-98) L 09/21/20 03:22 ABG Methemoglobin 0.3 (0.0-1.5) 09/21/20 03:22 ABG Sodium 134.2 mmol/L (136.0-145.0) L 09/21/20 03:22 ABG Potassium 3.9 mmol/L (3.40-4.50) 09/21/20 03:22 ABG Chloride 106.0 mmol/L (98-107) 09/21/20 03:22 ABG Glucose 187 mg/dL (65-95) H 09/21/20 03:22 VBG pH 7.368 (7.320-7.420) 09/15/20 18:46 Carboxyhemoglobin 0.7 (0.5-1.5) 09/21/20 03:22 FiO2 % 100.0 09/21/20 03:22 Sodium 134 mmol/L (137-145) L 09/21/20 00:46 Potassium 3.9 mmol/L (3.6-5.0) 09/21/20 00:46 Chloride 103.7 mmol/L (98-107) 09/21/20 00:46 Carbon Dioxide 18 mmol/L (22-30) L 09/21/20 00:46 Anion Gap 16 mmol/L 09/21/20 00:46 BUN 23 mg/dL (7-17) H 09/21/20 00:46 Creatinine 0.9 mg/dL (0.6-1.2) D 09/21/20 00:46 Estimated GFR > 60 ml/min 09/21/20 00:46 BUN/Creatinine Ratio 26 % 09/21/20 00:46 Glucose 198 mg/dL (65-100) H 09/21/20 00:46 POC Glucose 157 mg/dL (70-105) H 09/21/20 07:26 Lactic Acid 1.80 mmol/L (0.7-2.0) 09/17/20 04:59 Calcium 6.7 mg/dL (8.4-10.2) L D 09/21/20 00:46 Magnesium 1.70 mg/dL (1.7-2.3) 09/21/20 00:46 Ferritin 738.9 ng/mL (10.0-200.0) H 09/20/20 05:23 Total Bilirubin 0.80 mg/dL (0.1-1.2) 09/19/20 06:10 AST 45 units/L (5-40) H 09/19/20 06:10 ALT 35 units/L (7-56) 09/19/20 06:10 Alkaline Phosphatase 108 units/L (35-129) 09/19/20 06:10 Ammonia 23.0 umol/L (25-60) L 09/15/20 18:46 Lactate Dehydrogenase 882 units/L (91-180) H 09/20/20 05:23 Troponin T 0.444 ng/mL (0.00-0.029) H* 09/21/20 00:46 C-Reactive Protein 11.40 mg/dL (0.00-1.30) H 09/20/20 05:23 Total Protein 6.6 g/dL (6.3-8.2) 09/19/20 06:10 Albumin 3.5 g/dL (3.9-5) L 09/19/20 06:10 Albumin/Globulin Ratio 1.1 % 09/19/20 06:10 Triglycerides 156 mg/dL (2-149) H 09/21/20 00:46 Cholesterol 139 mg/dL (50-199) 09/21/20 00:46 LDL Cholesterol Direct 85 mg/dL (50-130) 09/21/20 00:46 HDL Cholesterol 22 mg/dL (40-59) L 09/21/20 00:46 Cholesterol/HDL Ratio 6.31 % 09/21/20 00:46 Procalcitonin 0.05 ng/mL (<0.15) 09/17/20 04:59 TSH 34.670 mlU/mL (0.270-4.200) H 09/15/20 18:46 Free T4 0.10 ng/dL (0.76-1.46) L 09/15/20 19:43 Arterial Blood Glucose 187 mg/dL (65-95) H 09/21/20 03:22 Arterial Blood Ionized Calcium 4.2 mg/dL (4.6-5.3) L 09/21/20 03:22 Urine Color Yellow (Yellow) 09/15/20 Unknown Urine Turbidity Cloudy (Clear) 09/15/20 Unknown Urine pH 7.0 (5.0-7.0) 09/15/20 Unknown Ur Specific [place] 1.017 (1.003-1.030) 09/15/20 Unknown Urine Protein 100 mg/dl mg/dL (Negative) 09/15/20 Unknown Urine Glucose (UA) >=500 mg/dL (Negative) 09/15/20 Unknown Urine Ketones 20 mg/dL (Negative) 09/15/20 Unknown Urine Blood Lg (Negative) 09/15/20 Unknown Urine Nitrite Neg (Negative) 09/15/20 Unknown Urine Bilirubin Neg (Negative) 09/15/20 Unknown Urine Urobilinogen < 2.0 mg/dL (<2.0) 09/15/20 Unknown Ur Leukocyte Esterase Lg (Negative) 09/15/20 Unknown Urine WBC (Auto) > 182.0 /HPF (0.0-6.0) H 09/15/20 Unknown Urine RBC (Auto) 92.0 /HPF (0.0-6.0) 09/15/20 Unknown U Epithel Cells (Auto) 4.0 /HPF (0-13.0) 09/15/20 Unknown Urine Bacteria (Auto) 3+ /HPF (Negative) 09/15/20 Unknown Urine WBC Clumps 2+ /HPF 09/15/20 Unknown Urine Yeast (Budding) 3+ /HPF 09/15/20 Unknown Salicylates < 0.3 mg/dL (2.8-20.0) L 09/15/20 18:46 Urine Opiates Screen Presumptive negative 09/15/20 Unknown Urine Methadone Screen Presumptive negative 09/15/20 Unknown Acetaminophen 5.0 ug/mL (10.0-30.0) L 09/16/20 21:38 Ur Barbiturates Screen Presumptive negative 09/15/20 Unknown Ur Phencyclidine Scrn Presumptive negative 09/15/20 Unknown Ur Amphetamines Screen Presumptive negative 09/15/20 Unknown U Benzodiazepines Scrn Presumptive negative 09/15/20 Unknown Urine Cocaine Screen Presumptive negative 09/15/20 Unknown U Marijuana (THC) Screen Presumptive negative 09/15/20 Unknown Drugs of Abuse Note Disclamer 09/15/20 Unknown Plasma/Serum Alcohol < 0.01 % (0-0.07) 09/15/20 18:46 Coronavirus (PCR) Positive (Negative) A 09/16/20 08:00 Microbiology: Microbiology 09/15/20 19:38 Peripheral/Venous Blood Culture - Final NO GROWTH AFTER 5 DAYS 09/15/20 19:38 Peripheral/Venous Blood Culture - Final NO GROWTH AFTER 5 DAYS Laura/IV: Voiding Method Indwelling Catheter Active Medications - Current Medications Current Medications: Generic Name Dose Route Start Last Admin Trade Name Freq PRN Reason Stop Dose Admin Albuterol 2.5 mg 09/20/20 12:28 Albuterol 2.5 Mg/3 Ml Nebu IH Q4HRT PRN Shortness Of Breath Dexamethasone 6 mg 09/16/20 10:00 09/20/20 11:16 Dexamethasone 4 Mg/Ml Vial IV 09/24/20 10:01 6 mg Q24HR AMANDA Administration Dextrose 50 ml 09/16/20 21:24 Dextrose 50% In Water (25gm) 50 Ml Syringe IV Q30MIN PRN Hypoglycemia Protocol Famotidine 20 mg 09/17/20 10:00 09/20/20 12:00 Famotidine 20 Mg Tab PO Not Given QDAY AMANDA Fentanyl 50 mcg 09/20/20 19:02 Fentanyl 100 Mcg/2 Ml Inj IV Q10MIN PRN ANALGESIA Heparin Sodium (Porcine) 3,100 unit 09/21/20 01:42 Heparin 10,000 Units/10 Ml Vial 40 unit/kg (3100 unit) IV Q6H PRN Anti-Xa Assay < 0.1 units/ml Hydrophilic Ointment 1 applic 09/20/20 19:02 Lip Therapy Vaseline TP Q2HR PRN Dry Lips Fentanyl Citrate 2,000 mcg in 100 mls @ 3.925 mls/hr 09/20/20 20:00 09/21/20 08:11 Fentanyl Drip Premix IV 2 mcg/kg/hr TITR AMANDA 7.85 mls/hr Administration Protocol 1 MCG/KG/HR Heparin Sodium/Sodium Chloride 25,000 unit in 500 mls @ 20 mls/hr 09/21/20 02:00 09/21/20 02:15 Heparin/ 0.45% Nacl-25,000 Unit/500 Ml IV 1,000 units/hr TITRATE AMANDA 20 mls/hr Administration Protocol 1,000 UNITS/HR Ibuprofen 600 mg 09/15/20 22:09 Ibuprofen 600 Mg Tab PO Q6H PRN Pain, Mild (1-3) Insulin Human Regular 0 units 09/16/20 07:30 09/21/20 08:11 Insulin Regular, Human 100 Units/1 Ml SUB-Q 2 units ACHS [facility] Administration Protocol Levothyroxine Sodium 125 mcg 09/18/20 06:00 09/21/20 05:39 Levothyroxine 125 Mcg Tab PO Not Given DAILY@0600 [facility] Magnesium Hydroxide 30 ml 09/15/20 22:09 Magnesium Hydroxide (Mom) Oral Liqd Udc PO Q4H PRN Constipation Morphine Sulfate 2 mg 09/15/20 22:09 09/19/20 07:50 Morphine 2 Mg/1 Ml Inj IV 2 mg Q4H PRN Administration Pain, Moderate (4-6) Morphine Sulfate 4 mg 09/15/20 22:09 Morphine 4 Mg/1 Ml Inj IV Q4H PRN Pain , Severe (7-10) Multi-Ingred Cream/Lotion/Oil/Oint 1 applic 09/20/20 19:02 Mineral Oil/Petrolatum, White Ophth Oint 3.5 Gm OU Q4HR PRN Dry Eye(s) Naloxone HCl 0.1 mg 09/15/20 18:36 Naloxone 0.4 Mg/1 Ml Inj IV Q2MIN PRN Res Rate </= 8 or 02 SAT < 92% Ondansetron HCl 4 mg 09/15/20 22:09 Ondansetron 4 Mg/2 Ml Inj IV Q8H PRN Nausea And Vomiting Sertraline HCl 25 mg 09/17/20 12:00 09/20/20 11:59 Sertraline 25 Mg Tab PO Not Given QDAY AMANDA Sodium Chloride 10 ml 09/16/20 10:00 09/20/20 21:02 Sodium Chloride 0.9% 10 Ml Flush Syringe IV 10 ml BID AMANDA Administration Sodium Chloride 10 ml 09/15/20 22:09 Sodium Chloride 0.9% 10 Ml Flush Syringe IV PRN PRN LINE FLUSH Nutrition/Malnutrition Assess - Dietary Evaluation Nutrition/Malnutrition Findings: Nutrition Notes Start: 09/16/20 15:13 Freq: Status: Active Protocol: Document 09/18/20 11:28 (Rec: 09/18/20 11:33 [email or web address]) Nutrition Notes Initial or Follow up Assessment Current Diagnosis Diabetes,Hypertension, Respiratory Failure Other Pertinent Diagnosis pneu, drug OD, COVID-19 Current Diet Cardiac/Consistent CHO Labs/Tests K 3.1 Pertinent Medications Decadron Height 5 ft 6 in Weight 78.5 kg [place] Body Weight (kg) 59.09 BMI 27.9 Weight Status Appropriate Subjective/Other Information RN reports pt not eating anything. Unable to speak with pt. Burn Absent Trauma Absent Current % PO Negligible Minimum of two criteria No physical signs of malnutrition #1 Nutrition Diagnosis Inadequate oral intake Etiology acute illness As Evidenced by Signs and Symptoms pt refusing meals Is patient on ventilator? No Is Patient Ambulatory and/or Out of Bed Yes REE-([facility]-ambulatory/OOB) [ 1809.275 [id number]] Calculation Used for Recommendations [facility] Additional Notes Protein: (0.8-1g/kg) 63-79g Fluid: 1 ml/kcal Nutrition Intervention Change Diet Order: continue Add Supplement/Snack (indicate name/kcal Glucerna TID /protein ) Provides kCal: 660 Provides Protein (gm) 30 Goal #1 Meet at least 75% of energy and protein needs via PO and ONS Anticipated Discharge Needs: Cardiac/Consistent CHO Follow-Up By: 09/22/20 Additional Comments FU for intakes and ONS tolerance
--- NOTE | 2020-09-21 09:40 | XRay Report ---
ABDOMEN 1 VIEW(S) INDICATION / CLINICAL INFORMATION: OGT placement verification. COMPARISON: None available. FINDINGS: TUBES / LINES: NG tube tip at the stomach. Sidehole at the level the GE junction. Advance 3 cm. BOWEL GAS PATTERN: No significant abnormality. ADDITIONAL FINDINGS: Previous cholecystectomy. Signer Name: Micheal Augustin MD Signed: 09/21/2020 9:35 AM Workstation Name: [id number]
[2020-09-21] MEDS: SERTRALINE 25 MG TAB PO SCH (10:29)
[2020-09-21] MEDS: dexAMETHasone 4 MG/ML VIAL IV SCH (10:29)
[2020-09-21] MEDS: FAMOTIDINE 20 MG TAB PO SCH (10:29)
--- NOTE | 2020-09-21 13:38 | Electrocardiograph Report ---
[facility] Test Date: 2020-09-21 Test Time: 00:06:32 Pat Name: JOSE GALINDO Department: Room: A261 1 Gender: F Fire Supervisor: jessica : 1965 Requested By: NOAH JIMENEZ Order Number: [id number] Reading MD: Alicia Lopez Measurements Intervals [place] Rate: 81 P: 46 NV: 153 QRS: 249 QRSD: 104 T: 197 QT: 507 QTc: 591 Interpretive Statements Sinus rhythm Deep T wave inversions in the anterior lateral leads, consider acute ischemia Prolonged QT interval Compared to ECG 09/16/2020 12:18:56 Acute ischemic changes are evident on the current ECG Electronically Signed On 09-21-2020 13:38:25 EDT by Alicia Lopez
--- NOTE | 2020-09-21 14:21 | Consultation ---
History of Present Illness Consult date: 09/21/20 Consult reason: abnormal cardiac enzymes, elevated troponin, other (Non-STEMI) History of present illness: The patient is a 54-year-old woman admitted to this hospital 6 days ago with altered mental status and shortness of breath. Her initial chest x-ray showed a mostly right middle lobe infiltrate. Further evaluation revealed an acute positive Covid pneumonia. She was initially managed on the medical floor, but due to progressive shortness of breath and progressive worsening of the chest x- ray, she was transferred to the CCU. Her serial chest x-rays have shown a progressive bilateral severe pneumonia. The patient is now on the ventilator in the ICU. On her presentation 1 week ago her ECG was sinus rhythm with no ST or T wave changes, and troponin levels were negative on admission. But follow-up EKG following her admission to the ICU over the past 24 hours show new, deep T wave inversions in the anterolateral leads consistent with acute ischemia. There is no ST elevation. Simultaneously, the troponin levels measured today were elevated at 0.44, consistent with a non-ST elevation myocardial infarction. Patient's hospital records do not report any known significant cardiac history or prior cardiac work-up. Past History Past Medical History: diabetes, GERD, hypertension, other (Bipolar- depression,Hypothyroidism) Past Surgical History: cholecystectomy, Other (Hysterectomy, Tubal Ligation, hernia surgeries x 3, left wrist cyst removal, Brain aneurysm) Social history: smoking (Current daily smoker) Family history: no significant family history Medications and Allergies Allergies Allergy/AdvReac Type Severity Reaction Status Date / Time No Known Allergies Allergy Verified 11/01/15 23:55 Home Medications Medication Instructions Recorded Confirmed Last Taken Type Ibuprofen [Motrin] 800 mg PO Q8HR PRN #30 tablet 05/25/16 09/18/20 Unknown Rx methOCARBAMOL [Robaxin TAB] 500 mg PO BID #20 tab 05/25/16 09/18/20 Unknown Rx traMADoL [Ultram 50 MG tab] 50 mg PO Q6HR PRN #20 tablet 05/25/16 09/18/20 Unknown Rx Azithromycin [Zithromax Tri-Matteo] 500 mg PO DAILY 3 Days #3 tablet 09/11/20 09/18/20 Unknown Rx Active Meds: Active Medications Albuterol (Albuterol 2.5 Mg/3 Ml Nebu) 2.5 mg IH Q4HRT PRN PRN Reason: Shortness Of Breath Dexamethasone (Dexamethasone 4 Mg/Ml Vial) 6 mg IV Q24HR AMANDA Stop: 09/24/20 10:01 Last Admin: 09/21/20 10:29 Dose: 6 mg Documented by: Dextrose (Dextrose 50% In Water (25gm) 50 Ml Syringe) 50 ml IV Q30MIN PRN; Protocol PRN Reason: Hypoglycemia Famotidine (Famotidine 20 Mg Tab) 20 mg PO QDAY [facility] Last Admin: 09/21/20 10:29 Dose: 20 mg Documented by: Fentanyl (Fentanyl 100 Mcg/2 Ml Inj) 50 mcg IV Q10MIN PRN PRN Reason: ANALGESIA Heparin Sodium (Porcine) (Heparin 10,000 Units/10 Ml Vial) 3,100 unit 40 unit/kg (3100 unit) IV Q6H PRN PRN Reason: Anti-Xa Assay < 0.1 units/ml Hydrophilic Ointment (Lip Therapy Vaseline) 1 applic TP Q2HR PRN PRN Reason: Dry Lips Fentanyl Citrate (Fentanyl Drip Premix) 2,000 mcg in 100 mls @ 3.925 mls/hr IV TITR AMANDA; Protocol Last Admin: 09/21/20 08:11 Dose: 2 mcg/kg/hr, 7.85 mls/hr Documented by: Heparin Sodium/Sodium Chloride (Heparin/ 0.45% Nacl-25,000 Unit/500 Ml) 25,000 unit in 500 mls @ 20 mls/hr IV TITRATE MAANDA; Protocol Last Titration: 09/21/20 10:15 Dose: 0 units/hr, 0 mls/hr Documented by: Ibuprofen (Ibuprofen 600 Mg Tab) 600 mg PO Q6H PRN PRN Reason: Pain, Mild (1-3) Insulin Human Regular (Insulin Regular, Human 100 Units/1 Ml) 0 units SUB-Q ACHS [facility]; Protocol Last Admin: 09/21/20 08:11 Dose: 2 units Documented by: Levothyroxine Sodium (Levothyroxine 125 Mcg Tab) 125 mcg PO DAILY@0600 [facility] Last Admin: 09/21/20 05:39 Dose: Not Given Documented by: Magnesium Hydroxide (Magnesium Hydroxide (Mom) Oral Liqd Udc) 30 ml PO Q4H PRN PRN Reason: Constipation Morphine Sulfate (Morphine 2 Mg/1 Ml Inj) 2 mg IV Q4H PRN PRN Reason: Pain, Moderate (4-6) Last Admin: 09/19/20 07:50 Dose: 2 mg Documented by: Morphine Sulfate (Morphine 4 Mg/1 Ml Inj) 4 mg IV Q4H PRN PRN Reason: Pain , Severe (7-10) Multi-Ingred Cream/Lotion/Oil/Oint (Mineral Oil/Petrolatum, White Ophth Oint 3.5 Gm) 1 applic OU Q4HR PRN PRN Reason: Dry Eye(s) Naloxone HCl (Naloxone 0.4 Mg/1 Ml Inj) 0.1 mg IV Q2MIN PRN PRN Reason: Res Rate </= 8 or 02 SAT < 92% Ondansetron HCl (Ondansetron 4 Mg/2 Ml Inj) 4 mg IV Q8H PRN PRN Reason: Nausea And Vomiting Sertraline HCl (Sertraline 25 Mg Tab) 25 mg PO QDAY [facility] Last Admin: 09/21/20 10:29 Dose: 25 mg Documented by: Sodium Chloride (Sodium Chloride 0.9% 10 Ml Flush Syringe) 10 ml IV BID [facility] Last Admin: 09/21/20 10:30 Dose: 10 ml Documented by: Sodium Chloride (Sodium Chloride 0.9% 10 Ml Flush Syringe) 10 ml IV PRN PRN PRN Reason: LINE FLUSH Review of Systems ROS unobtainable: due to endotracheal tube, due to mental status Physical Examination Vital Signs Pulse Resp BP Pulse Ox 71 28 H 142/85 100 09/15/20 15:27 09/15/20 15:27 09/15/20 15:27 09/15/20 15:27 General appearance: other (Patient is unresponsive, on the vent) HEENT: Positive: Other (Pupils fixed) Neck: Positive: neck supple Cardiac: Positive: Reg Rate and Rhythm Lungs: Positive: Decreased Breath Sounds Neuro: Positive: Other (Patient is unresponsive, on the vent) Abdomen: Positive: Soft Female genitourinary: deferred Skin: Positive: Clear Extremities: Absent: edema Results 09/21/20 02:14 09/21/20 00:46 Coagulation 09/21/20 Range/Units 02:14 PT 20.0 H (12.2-14.9) Sec. INR 1.65 H (0.87-1.13) APTT 38.2 H (24.2-36.6) Sec. Lipids 09/21/20 Range/Units 00:46 Triglycerides 156 H (2-149) mg/dL Cholesterol 139 (50-199) mg/dL HDL Cholesterol 22 L (40-59) mg/dL Cholesterol/HDL Ratio 6.31 % CBC 09/21/20 Range/Units 02:14 Hgb 13.5 (10.1-14.3) gm/dl Hct 38.8 (30.3-42.9) % Plt Count 176 (140-440) K/mm3 Comprehensive Metabolic Panel 09/21/20 Range/Units 00:46 Sodium 134 L (137-145) mmol/L Potassium 3.9 (3.6-5.0) mmol/L Chloride 103.7 (98-107) mmol/L Carbon Dioxide 18 L (22-30) mmol/L BUN 23 H (7-17) mg/dL Creatinine 0.9 D (0.6-1.2) mg/dL Glucose 198 H (65-100) mg/dL Calcium 6.7 L D (8.4-10.2) mg/dL EKG interpretations - Telemetry EKG Rhythm: Sinus Rhythm (With deep anterolateral T wave inversions consistent with acute ischemia) Assessment and Plan Patient admitted with respiratory failure due to Covid pneumonia, chest x-ray shows bilateral dense infiltrates of acute bilateral pneumonia. Clinical course in the ICU is consistent with the development of an acute non-ST elevation myocardial infarction based on ECG findings and elevated troponin. Recommendations: The patient is not a candidate for aggressive and invasive cardiac therapies, in the setting of respiratory failure due to severe bilateral pneumonia and sepsis. We will place her on aggressive medical therapy including heparin drip, topical nitrates, beta-blockers, aspirin and Plavix. We will order an echocardiogram for left ventricular function assessment. Prognosis is poor in the setting of severe respiratory failure due to severe viral pneumonia and intercurrent acute non-ST elevation infarct.
[2020-09-21] MEDS ORDERED: TOCILIZUMAB 600 MG in SODIUM CHLORIDE 0.9% 100 ML IV ONE (14:23)
--- NOTE | 2020-09-21 14:23 | Progress Note ---
Assessment and Plan Acute hypoxemic resp failure on MVS Acute toxic metabolic encephalopathy Severe sepsis Community acquired pneumonia Severe COVID-19 pneumonia Bilateral pneumonia Hyponatremia at presentation Diabetes, poorly controlled Lactic acidosis Urinary tract infection Tobacco use disorder -Place NGT for nutritional support -Critical care proning as tolerated - continue to wean supplemental oxygen to keep SpO2 89-92% - VAP bundle addressed - continue lung protective strategies - continue bronchodilators with pulmonary hygiene per RT - wean per pulmonary driven protocols otherwise - continue accuchecks with glycemic control per SSI (While critically ill target blood glucose of 140-180 mg/dL; avoid hypoglycemia) - sedation prn for target RASS -4 to -5 - avoid nephrotoxins, renally dose all medications - continue to avoid benzodiazepines, reduce the possibility of delirium - anti-infectives per ID recommendation - prn analgesia per CPOT score - Maintenance of sleep-wake cycle, avoid delirium - Stress prophylaxis - mobility protocols for pressure ulcer prevention - Monitor hemodynamics closely - continue other care per attending / other consultants - discharge planning ongoing concurrently COVID SPECIFIC INTERVENTIONS - Treatment as per ID/Pulmonary developed protocols (Remdesivir, Dexamethasone) - Monitor inflammatory markers per facility protocol - ferritin, D-dimer - Anticoagulation per system Protocol based on d-dimer and clinical considerations - Continue contact and airborne isolation CONDITION: CRITICAL PROGNOSIS: GUARDED CODE STATUS: FULL CODE The high probability of a clinically significant, sudden or life-threatening deterioration of the respiratory system required my full and direct attention, intervention and personal management. The aggregate critical care time was [35] minutes without overlap. Time includes spent on; [x] Data Review and interpretation [x] Patient assessment and monitoring of vital signs [x] Documentation [x] Medication orders and management Subjective Date of service: 09/21/20 Principal diagnosis: Ac encephalopathy; CAP; Sepsis; COVID-19 infxn; Ac hypoxemic resp failure Interval history: Patient is seen today for: Acute toxic metabolic encephalopathy; CAP; Severe sepsis; COVID-19 infection; Acute hypoxemic respiratory failure UTI; DM II Seen and examined at bedside; 24hour events reviewed; nursing and respiratory care staff consulted; no adverse overnight events reported to me; remains on MVS PEEP+10/FIO2 100% Objective Vital Signs - 12hr 09/21/20 09/21/20 09/21/20 02:30 02:45 03:00 Temperature Pulse Rate 78 78 78 Respiratory 18 17 16 Rate Blood Pressure 87/52 91/51 89/51 O2 Sat by Pulse 90 91 Oximetry 09/21/20 09/21/20 09/21/20 03:15 03:30 03:45 Temperature Pulse Rate 78 81 79 Respiratory 16 19 16 Rate Blood Pressure 94/47 93/57 92/57 O2 Sat by Pulse 99 93 Oximetry 09/21/20 09/21/20 09/21/20 04:00 04:15 04:30 Temperature 98.3 F Pulse Rate 79 78 79 Respiratory 17 18 18 Rate Blood Pressure 95/55 90/51 87/52 O2 Sat by Pulse 92 91 90 Oximetry 09/21/20 09/21/20 09/21/20 04:45 05:00 05:15 Temperature Pulse Rate 79 81 81 Respiratory 19 17 16 Rate Blood Pressure 93/53 91/52 89/52 O2 Sat by Pulse 91 88 Oximetry 09/21/20 09/21/20 09/21/20 05:30 05:34 05:45 Temperature Pulse Rate 80 80 81 Respiratory 18 17 Rate Blood Pressure 90/52 90/52 98/50 O2 Sat by Pulse 91 91 90 Oximetry 09/21/20 09/21/20 09/21/20 06:00 06:15 06:30 Temperature Pulse Rate 80 80 80 Respiratory 17 17 17 Rate Blood Pressure 90/54 85/57 93/50 O2 Sat by Pulse 90 91 Oximetry 09/21/20 09/21/20 09/21/20 06:45 07:00 07:15 Temperature Pulse Rate 79 79 79 Respiratory 18 18 17 Rate Blood Pressure 89/52 90/54 97/55 O2 Sat by Pulse 89 90 90 Oximetry 09/21/20 09/21/20 09/21/20 07:30 07:38 07:40 Temperature 97.4 F L 99.4 F Pulse Rate 81 Respiratory 18 Rate Blood Pressure 87/55 O2 Sat by Pulse 89 Oximetry 09/21/20 09/21/20 09/21/20 07:45 08:00 08:15 Temperature Pulse Rate 80 82 79 Respiratory 18 18 16 Rate Blood Pressure 90/56 109/62 93/54 O2 Sat by Pulse 88 90 92 Oximetry 09/21/20 09/21/20 09/21/20 08:30 08:45 09:00 Temperature Pulse Rate 80 80 84 Respiratory 17 15 19 Rate Blood Pressure 87/54 95/59 103/57 O2 Sat by Pulse 91 93 91 Oximetry 09/21/20 09/21/20 09/21/20 09:15 09:30 09:45 Temperature Pulse Rate 83 87 85 Respiratory 17 17 17 Rate Blood Pressure 100/59 92/57 95/63 O2 Sat by Pulse 92 90 89 Oximetry 09/21/20 09/21/20 09/21/20 10:00 10:15 10:30 Temperature Pulse Rate 85 82 88 Respiratory 18 15 18 Rate Blood Pressure 92/59 101/62 95/61 O2 Sat by Pulse 92 90 90 Oximetry 09/21/20 09/21/20 09/21/20 10:45 11:00 11:15 Temperature 98.7 F Pulse Rate 84 82 86 Respiratory 15 19 16 Rate Blood Pressure 93/57 103/63 94/61 O2 Sat by Pulse 89 87 91 Oximetry 09/21/20 09/21/20 09/21/20 11:30 11:46 12:00 Temperature Pulse Rate 87 87 87 Respiratory 16 19 17 Rate Blood Pressure 94/61 103/63 95/55 O2 Sat by Pulse 87 86 87 Oximetry 09/21/20 09/21/20 09/21/20 12:15 12:30 12:45 Temperature Pulse Rate 85 87 88 Respiratory 18 18 18 Rate Blood Pressure 96/61 96/62 101/55 O2 Sat by Pulse 91 88 89 Oximetry 09/21/20 09/21/20 09/21/20 13:00 13:15 13:30 Temperature Pulse Rate 86 85 88 Respiratory 16 18 17 Rate Blood Pressure 100/64 99/58 101/56 O2 Sat by Pulse 87 87 84 Oximetry 09/21/20 09/21/20 13:45 14:00 Temperature Pulse Rate 87 86 Respiratory 18 18 Rate Blood Pressure 95/63 99/57 O2 Sat by Pulse 89 Oximetry Constitutional: lethargic, appears uncomfortable, other (middle aged female with mildly increased respiratory effort at rest, ETT in place) Eyes: non-icteric ENT: oropharynx moist Neck: supple, no lymphadenopathy Effort: mildly labored Ascultation: Bilateral: diminished breath sounds, rhonchi Percussion: Bilateral: not dull Cardiovascular: regular rate and rhythm, other (S1,S2) Gastrointestinal: normoactive bowel sounds, soft, non-tender, non-distended (protuberant) Integumentary: normal Extremities: no cyanosis, no edema, pink and warm, pulses normal Neurologic: pupils equal and round, unable to assess Psychiatric: other (sedated) CBC and BMP: 09/29/20 07:52 09/29/20 13:56 ABG, PT/INR, D-dimer: ABG ABG pH 7.325 (7.320-7.450) 09/21/20 03:22 POC ABG pCO2 37.7 mmHg (32.0-48.0) 09/21/20 03:22 POC ABG pO2 70.3 mmHg (83-108) L 09/21/20 03:22 POC ABG HCO3 19.2 09/21/20 03:22 ABG O2 Saturation 93.1 (0-100) 09/21/20 03:22 PT/INR, D-dimer PT 20.0 Sec. (12.2-14.9) H 09/21/20 02:14 INR 1.65 (0.87-1.13) H 09/21/20 02:14 D-Dimer 4940.20 ng/mlDDU (0-234) H 09/20/20 05:23 Abnormal lab findings: Abnormal Labs 09/15/20 09/15/20 09/15/20 18:46 18:46 18:46 Hgb 14.4 H MCH MCHC Lymph % (Auto) Lymph # (Auto) Seg Neutrophils % Seg Neutrophils # PT INR APTT D-Dimer Heparin Anti-Xa Level ABG pH POC ABG pCO2 POC ABG pO2 ABG Oxyhemoglobin ABG Sodium ABG Potassium ABG Chloride ABG Glucose Sodium 128 L Potassium 3.2 L Chloride 89.3 L Carbon Dioxide BUN Creatinine Glucose 388 H POC Glucose Lactic Acid Calcium 8.2 L Ferritin AST 69 H Ammonia Lactate Dehydrogenase Troponin T C-Reactive Protein Albumin 3.6 L Triglycerides HDL Cholesterol TSH 34.670 H Free T4 Arterial Blood Glucose Arterial Blood Ionized Calcium Urine WBC (Auto) Salicylates Acetaminophen Coronavirus (PCR) 09/15/20 09/15/20 09/15/20 18:46 18:46 18:46 Hgb MCH MCHC Lymph % (Auto) Lymph # (Auto) Seg Neutrophils % Seg Neutrophils # PT INR APTT D-Dimer Heparin Anti-Xa Level ABG pH POC ABG pCO2 POC ABG pO2 ABG Oxyhemoglobin ABG Sodium ABG Potassium ABG Chloride ABG Glucose Sodium Potassium Chloride Carbon Dioxide BUN Creatinine Glucose POC Glucose Lactic Acid Calcium Ferritin AST Ammonia 23.0 L Lactate Dehydrogenase Troponin T C-Reactive Protein Albumin Triglycerides HDL Cholesterol TSH Free T4 Arterial Blood Glucose Arterial Blood Ionized Calcium Urine WBC (Auto) Salicylates < 0.3 L Acetaminophen 9.1 L Coronavirus (PCR) 09/15/20 09/15/20 09/15/20 19:38 19:40 19:43 Hgb MCH MCHC Lymph % (Auto) Lymph # (Auto) Seg Neutrophils % Seg Neutrophils # PT INR APTT D-Dimer Heparin Anti-Xa Level ABG pH POC ABG pCO2 POC ABG pO2 ABG Oxyhemoglobin ABG Sodium ABG Potassium ABG Chloride ABG Glucose Sodium Potassium Chloride Carbon Dioxide BUN Creatinine Glucose POC Glucose 398 H Lactic Acid 2.70 H* Calcium Ferritin AST Ammonia Lactate Dehydrogenase Troponin T C-Reactive Protein Albumin Triglycerides HDL Cholesterol TSH Free T4 0.10 L Arterial Blood Glucose Arterial Blood Ionized Calcium Urine WBC (Auto) Salicylates Acetaminophen Coronavirus (PCR) 09/15/20 09/15/20 09/16/20 20:02 Unknown 04:47 Hgb 14.8 H MCH 33 H MCHC 36 H Lymph % (Auto) 7.3 L Lymph # (Auto) 0.8 L Seg Neutrophils % 85.7 H Seg Neutrophils # 8.9 H PT INR APTT D-Dimer Heparin Anti-Xa Level ABG pH POC ABG pCO2 31.1 L POC ABG pO2 46.9 L ABG Oxyhemoglobin 82.8 L ABG Sodium 129.8 L ABG Potassium 3.1 L ABG Chloride ABG Glucose 374 H Sodium Potassium Chloride Carbon Dioxide BUN Creatinine Glucose POC Glucose Lactic Acid Calcium Ferritin AST Ammonia Lactate Dehydrogenase Troponin T C-Reactive Protein Albumin Triglycerides HDL Cholesterol TSH Free T4 Arterial Blood Glucose 374 H Arterial Blood Ionized Calcium Urine WBC (Auto) > 182.0 H Salicylates Acetaminophen Coronavirus (PCR) 09/16/20 09/16/20 09/16/20 04:47 07:20 08:00 Hgb MCH MCHC Lymph % (Auto) Lymph # (Auto) Seg Neutrophils % Seg Neutrophils # PT INR APTT D-Dimer Heparin Anti-Xa Level ABG pH POC ABG pCO2 POC ABG pO2 ABG Oxyhemoglobin ABG Sodium ABG Potassium ABG Chloride ABG Glucose Sodium 135 L D Potassium Chloride 94.1 L Carbon Dioxide BUN Creatinine Glucose 418 H POC Glucose 403 H Lactic Acid Calcium 8.3 L Ferritin AST Ammonia Lactate Dehydrogenase Troponin T C-Reactive Protein Albumin Triglycerides HDL Cholesterol TSH Free T4 Arterial Blood Glucose Arterial Blood Ionized Calcium Urine WBC (Auto) Salicylates Acetaminophen Coronavirus (PCR) Positive A 09/16/20 09/16/20 09/16/20 11:43 16:17 21:38 Hgb MCH MCHC Lymph % (Auto) Lymph # (Auto) Seg Neutrophils % Seg Neutrophils # PT INR APTT D-Dimer 702.65 H Heparin Anti-Xa Level ABG pH POC ABG pCO2 POC ABG pO2 ABG Oxyhemoglobin ABG Sodium ABG Potassium ABG Chloride ABG Glucose Sodium Potassium Chloride Carbon Dioxide BUN Creatinine Glucose POC Glucose 417 H 353 H Lactic Acid Calcium Ferritin AST Ammonia Lactate Dehydrogenase Troponin T C-Reactive Protein Albumin Triglycerides HDL Cholesterol TSH Free T4 Arterial Blood Glucose Arterial Blood Ionized Calcium Urine WBC (Auto) Salicylates Acetaminophen Coronavirus (PCR) 09/16/20 09/16/20 09/16/20 21:38 21:38 21:38 Hgb MCH MCHC Lymph % (Auto) Lymph # (Auto) Seg Neutrophils % Seg Neutrophils # PT INR APTT D-Dimer Heparin Anti-Xa Level ABG pH POC ABG pCO2 POC ABG pO2 ABG Oxyhemoglobin ABG Sodium ABG Potassium ABG Chloride ABG Glucose Sodium Potassium Chloride Carbon Dioxide BUN Creatinine Glucose POC Glucose Lactic Acid Calcium Ferritin 1089.0 H AST Ammonia Lactate Dehydrogenase 722 H Troponin T C-Reactive Protein 6.80 H Albumin Triglycerides HDL Cholesterol TSH Free T4 Arterial Blood Glucose Arterial Blood Ionized Calcium Urine WBC (Auto) Salicylates Acetaminophen 5.0 L Coronavirus (PCR) 09/16/20 09/16/20 09/17/20 21:38 22:24 04:59 Hgb MCH MCHC Lymph % (Auto) Lymph # (Auto) Seg Neutrophils % Seg Neutrophils # PT INR APTT D-Dimer Heparin Anti-Xa Level ABG pH POC ABG pCO2 POC ABG pO2 ABG Oxyhemoglobin ABG Sodium ABG Potassium ABG Chloride ABG Glucose Sodium 134 L 135 L Potassium 3.5 L 3.0 L Chloride 95.1 L 97.2 L Carbon Dioxide BUN Creatinine Glucose 288 H 149 H POC Glucose 307 H Lactic Acid Calcium 8.2 L Ferritin AST 43 H 49 H Ammonia Lactate Dehydrogenase Troponin T C-Reactive Protein Albumin 3.7 L 3.3 L Triglycerides HDL Cholesterol TSH Free T4 Arterial Blood Glucose Arterial Blood Ionized Calcium Urine WBC (Auto) Salicylates Acetaminophen Coronavirus (PCR) 09/17/20 09/17/20 09/17/20 12:25 16:57 21:30 Hgb MCH MCHC Lymph % (Auto) Lymph # (Auto) Seg Neutrophils % Seg Neutrophils # PT INR APTT D-Dimer Heparin Anti-Xa Level ABG pH POC ABG pCO2 POC ABG pO2 ABG Oxyhemoglobin ABG Sodium ABG Potassium ABG Chloride ABG Glucose Sodium Potassium Chloride Carbon Dioxide BUN Creatinine Glucose POC Glucose 199 H 313 H 304 H Lactic Acid Calcium Ferritin AST Ammonia Lactate Dehydrogenase Troponin T C-Reactive Protein Albumin Triglycerides HDL Cholesterol TSH Free T4 Arterial Blood Glucose Arterial Blood Ionized Calcium Urine WBC (Auto) Salicylates Acetaminophen Coronavirus (PCR) 09/18/20 09/18/20 09/18/20 08:01 08:05 12:36 Hgb MCH MCHC Lymph % (Auto) Lymph # (Auto) Seg Neutrophils % Seg Neutrophils # PT INR APTT D-Dimer Heparin Anti-Xa Level ABG pH POC ABG pCO2 POC ABG pO2 ABG Oxyhemoglobin ABG Sodium ABG Potassium ABG Chloride ABG Glucose Sodium Potassium 3.1 L Chloride Carbon Dioxide BUN Creatinine Glucose 112 H POC Glucose 125 H 159 H Lactic Acid Calcium 8.3 L Ferritin AST 47 H Ammonia Lactate Dehydrogenase Troponin T C-Reactive Protein Albumin 3.3 L Triglycerides HDL Cholesterol TSH Free T4 Arterial Blood Glucose Arterial Blood Ionized Calcium Urine WBC (Auto) Salicylates Acetaminophen Coronavirus (PCR) 09/18/20 09/18/20 09/19/20 16:57 21:40 06:10 Hgb MCH MCHC Lymph % (Auto) Lymph # (Auto) Seg Neutrophils % Seg Neutrophils # PT INR APTT D-Dimer Heparin Anti-Xa Level ABG pH POC ABG pCO2 POC ABG pO2 ABG Oxyhemoglobin ABG Sodium ABG Potassium ABG Chloride ABG Glucose Sodium Potassium 2.8 L* Chloride 97.7 L Carbon Dioxide BUN Creatinine 0.4 L Glucose 146 H POC Glucose 180 H 225 H Lactic Acid Calcium 8.2 L Ferritin AST 45 H Ammonia Lactate Dehydrogenase Troponin T C-Reactive Protein Albumin 3.5 L Triglycerides HDL Cholesterol TSH Free T4 Arterial Blood Glucose Arterial Blood Ionized Calcium Urine WBC (Auto) Salicylates Acetaminophen Coronavirus (PCR) 09/19/20 09/19/20 09/19/20 08:06 11:14 17:50 Hgb MCH MCHC Lymph % (Auto) Lymph # (Auto) Seg Neutrophils % Seg Neutrophils # PT INR APTT D-Dimer Heparin Anti-Xa Level ABG pH POC ABG pCO2 POC ABG pO2 ABG Oxyhemoglobin ABG Sodium ABG Potassium ABG Chloride ABG Glucose Sodium Potassium Chloride Carbon Dioxide BUN Creatinine Glucose POC Glucose 175 H 210 H 291 H Lactic Acid Calcium Ferritin AST Ammonia Lactate Dehydrogenase Troponin T C-Reactive Protein Albumin Triglycerides HDL Cholesterol TSH Free T4 Arterial Blood Glucose Arterial Blood Ionized Calcium Urine WBC (Auto) Salicylates Acetaminophen Coronavirus (PCR) 09/19/20 09/20/20 09/20/20 21:30 05:23 05:23 Hgb MCH MCHC Lymph % (Auto) Lymph # (Auto) Seg Neutrophils % Seg Neutrophils # PT INR APTT D-Dimer Heparin Anti-Xa Level ABG pH POC ABG pCO2 POC ABG pO2 ABG Oxyhemoglobin ABG Sodium ABG Potassium ABG Chloride ABG Glucose Sodium 131 L Potassium 3.3 L D Chloride 95.4 L Carbon Dioxide 18 L BUN Creatinine 0.4 L Glucose 169 H POC Glucose 232 H Lactic Acid Calcium 8.3 L Ferritin 738.9 H AST Ammonia Lactate Dehydrogenase 882 H Troponin T C-Reactive Protein 11.40 H Albumin Triglycerides HDL Cholesterol TSH Free T4 Arterial Blood Glucose Arterial Blood Ionized Calcium Urine WBC (Auto) Salicylates Acetaminophen Coronavirus (PCR) 09/20/20 09/20/20 09/20/20 05:23 06:50 10:46 Hgb MCH MCHC Lymph % (Auto) Lymph # (Auto) Seg Neutrophils % Seg Neutrophils # PT INR APTT D-Dimer 4940.20 H Heparin Anti-Xa Level ABG pH 7.289 L POC ABG pCO2 POC ABG pO2 50.1 L ABG Oxyhemoglobin 80.8 L ABG Sodium 130.8 L ABG Potassium ABG Chloride 97.0 L ABG Glucose 275 H Sodium Potassium Chloride Carbon Dioxide BUN Creatinine Glucose POC Glucose 242 H Lactic Acid Calcium Ferritin AST Ammonia Lactate Dehydrogenase Troponin T C-Reactive Protein Albumin Triglycerides HDL Cholesterol TSH Free T4 Arterial Blood Glucose 275 H Arterial Blood Ionized Calcium 4.2 L Urine WBC (Auto) Salicylates Acetaminophen Coronavirus (PCR) 09/20/20 09/20/20 09/20/20 11:58 16:30 16:41 Hgb MCH MCHC Lymph % (Auto) Lymph # (Auto) Seg Neutrophils % Seg Neutrophils # PT INR APTT D-Dimer Heparin Anti-Xa Level ABG pH POC ABG pCO2 27.8 L POC ABG pO2 79.7 L ABG Oxyhemoglobin ABG Sodium 131.0 L ABG Potassium ABG Chloride ABG Glucose 297 H Sodium Potassium Chloride Carbon Dioxide BUN Creatinine Glucose POC Glucose 262 H 283 H Lactic Acid Calcium Ferritin AST Ammonia Lactate Dehydrogenase Troponin T C-Reactive Protein Albumin Triglycerides HDL Cholesterol TSH Free T4 Arterial Blood Glucose 297 H Arterial Blood Ionized Calcium 4.3 L Urine WBC (Auto) Salicylates Acetaminophen Coronavirus (PCR) 09/20/20 09/20/20 09/21/20 17:26 21:29 00:46 Hgb MCH MCHC Lymph % (Auto) Lymph # (Auto) Seg Neutrophils % Seg Neutrophils # PT INR APTT D-Dimer Heparin Anti-Xa Level ABG pH POC ABG pCO2 POC ABG pO2 ABG Oxyhemoglobin ABG Sodium ABG Potassium ABG Chloride ABG Glucose Sodium Potassium Chloride Carbon Dioxide BUN Creatinine Glucose POC Glucose 297 H 248 H Lactic Acid Calcium Ferritin AST Ammonia Lactate Dehydrogenase Troponin T 0.444 H* C-Reactive Protein Albumin Triglycerides 156 H HDL Cholesterol 22 L TSH Free T4 Arterial Blood Glucose Arterial Blood Ionized Calcium Urine WBC (Auto) Salicylates Acetaminophen Coronavirus (PCR) 09/21/20 09/21/20 09/21/20 00:46 02:14 03:22 Hgb MCH MCHC Lymph % (Auto) Lymph # (Auto) Seg Neutrophils % Seg Neutrophils # PT 20.0 H INR 1.65 H APTT 38.2 H D-Dimer Heparin Anti-Xa Level ABG pH POC ABG pCO2 POC ABG pO2 70.3 L ABG Oxyhemoglobin 92.2 L ABG Sodium 134.2 L ABG Potassium ABG Chloride ABG Glucose 187 H Sodium 134 L Potassium Chloride Carbon Dioxide 18 L BUN 23 H Creatinine Glucose 198 H POC Glucose Lactic Acid Calcium 6.7 L D Ferritin AST Ammonia Lactate Dehydrogenase Troponin T C-Reactive Protein Albumin Triglycerides HDL Cholesterol TSH Free T4 Arterial Blood Glucose 187 H Arterial Blood Ionized Calcium 4.2 L Urine WBC (Auto) Salicylates Acetaminophen Coronavirus (PCR) 08/08/21 08/08/21 08/08/21 07:26 08:15 11:21 Hgb MCH MCHC Lymph % (Auto) Lymph # (Auto) Seg Neutrophils % Seg Neutrophils # PT INR APTT D-Dimer Heparin Anti-Xa Level 0.97 H ABG pH POC ABG pCO2 POC ABG pO2 ABG Oxyhemoglobin ABG Sodium ABG Potassium ABG Chloride ABG Glucose Sodium Potassium Chloride Carbon Dioxide BUN Creatinine Glucose POC Glucose 157 H 153 H Lactic Acid Calcium Ferritin AST Ammonia Lactate Dehydrogenase Troponin T C-Reactive Protein Albumin Triglycerides HDL Cholesterol TSH Free T4 Arterial Blood Glucose Arterial Blood Ionized Calcium Urine WBC (Auto) Salicylates Acetaminophen Coronavirus (PCR) Chest x-ray: image reviewed Allied health notes reviewed: RT
[2020-09-21] MEDS ORDERED: CLOPIDOGREL 300 MG TAB PO ONE (15:00)
[2020-09-21] MEDS: ASPIRIN 81 MG TAB CHEW PO SCH (15:04)
[2020-09-21] MEDS: METOPROLOL TARTRATE 5 MG/5 ML INJ IV SCH ×2 (15:05→22:50)
[2020-09-21 20:23] LABS: Creatine Kinase MB 17.8 ng/mL (0.0-4.0)
--- NOTE | 2020-09-22 01:48 | XRay Report ---
CHEST - 1 VIEW INDICATION: follow up respiratory failure COMPARISON: Yesterday FINDINGS: SUPPORT DEVICES: New NG tube projecting below the [id number] into the region of the abdomen. Othe rwise stable support device positioning. HEART: Stable cardiomediastinal silhouette. LUNGS/PLEURA: Persistent mild patchy multifocal airspace disease. ADDITIONAL FINDINGS: None. IMPRESSION: New NG tube projecting below the [id number]. Otherwise largely unchanged exam. Signer Name: Dale Naranjo MD Signed: 09/22/2020 1:43 AM Workstation Name: [id number]
[2020-09-22] MEDS: METOPROLOL TARTRATE 5 MG/5 ML INJ IV SCH ×3 (06:08→22:11)
[2020-09-22] MEDS: LEVOTHYROXINE 125 MCG TAB PO SCH (06:08)
[2020-09-22] MEDS: NITROGLYCERIN 2% OINT 1 GM TP SCH ×2 (06:09→13:17)
[2020-09-22] MEDS ORDERED: SIMPLE SYRUP 15 ML FEEDTUBE PRN ×2 (08:06)
[2020-09-22] MEDS ORDERED: SODIUM BICARBONATE 325 MG TAB FEEDTUBE PRN (08:06)
[2020-09-22] MEDS ORDERED: LIPASE 10,500/PROTEASE 25,000/AMYLASE 43,750 (UNITS) DR CAP FEEDTUBE PRN (08:06)
[2020-09-22] MEDS: INSULIN REGULAR, HUMAN 100 UNITS/1 ML SUB-Q SCH ×3 (09:13→18:48)
[2020-09-22] MEDS: dexAMETHasone 4 MG/ML VIAL IV SCH (10:18)
[2020-09-22] MEDS: CLOPIDOGREL 75 MG TAB PO SCH (10:19)
[2020-09-22] MEDS: SERTRALINE 25 MG TAB PO SCH (10:19)
[2020-09-22] MEDS: FAMOTIDINE 20 MG TAB PO SCH ×2 (10:19→22:12)
[2020-09-22] MEDS: ASPIRIN 81 MG TAB CHEW PO SCH (10:19)
[2020-09-22] MEDS: HEPARIN/ 0.45% NACL DRIP 25,000 UNIT/500 ML BAG IV SCH (10:58)
[2020-09-22 11:29] LABS: Creatine Kinase MB 14.4 ng/mL (0.0-4.0)
--- NOTE | 2020-09-22 13:33 | Progress Note ---
Assessment and Plan Patient admitted with respiratory failure due to Covid pneumonia, chest x-ray shows bilateral dense infiltrates of acute bilateral pneumonia. Unresponsive, on the vent in the ICU on supportive management. Clinical course in the ICU is consistent with the development of an acute non-ST elevation myocardial infarction evident on the ECG and elevated troponin. Recommendations: The patient is not a candidate for aggressive and invasive cardiac therapies, in the setting of respiratory failure due to severe bilateral pneumonia and sepsis. Continue aggressive medical therapy including heparin drip, topical nitrates, beta-blockers, aspirin and Plavix. Echocardiogram is pending for left ventricular function assessment. Prognosis is poor in the setting of severe respiratory failure due to severe viral pneumonia and intercurrent acute non-ST elevation infarct. Subjective Date of service: 09/22/20 Principal diagnosis: Ac encephalopathy; CAP; Sepsis; COVID-19 infxn; Ac hypoxemic resp failure Interval history: No new cardiac complaints, patient tolerating full complement of anti-ischemic medical therapy as previously directed. Objective Vital Signs Temp Pulse Pulse Resp BP Pulse Ox 09/22/20 13:00 120 H 14 141/81 95 09/22/20 12:46 105 H 13 132/75 98 09/22/20 12:30 107 H 11 L 132/75 93 09/22/20 12:16 109 H 9 L 137/73 97 09/22/20 12:00 107 H 10 L 137/73 93 09/22/20 11:56 99.7 F H 09/22/20 11:46 106 H 10 L 135/77 96 09/22/20 11:36 110 H 135/77 97 09/22/20 11:30 109 H 11 L 135/77 92 09/22/20 11:16 108 H 11 L 126/75 96 09/22/20 11:00 105 H 11 L 126/75 93 09/22/20 10:46 104 H 11 L 142/73 95 09/22/20 10:30 109 H 11 L 142/73 92 09/22/20 10:16 107 H 11 L 135/73 95 09/22/20 10:00 106 H 11 L 130/73 94 09/22/20 09:46 105 H 10 L 135/73 95 09/22/20 09:30 106 H 11 L 135/73 91 09/22/20 09:16 115 H 12 137/72 93 09/22/20 09:05 110 H 137/72 95 09/22/20 09:00 104 H 11 L 137/72 90 09/22/20 08:46 119 H 22 162/90 95 09/22/20 08:30 100 H 10 L 135/75 92 09/22/20 08:15 98 H 10 L 131/75 92 09/22/20 08:00 88 18 127/68 94 09/22/20 07:45 92 H 11 L 124/76 93 09/22/20 07:34 98.8 F 09/22/20 07:30 93 H 11 L 123/72 91 09/22/20 07:15 92 H 13 125/76 92 09/22/20 07:00 81 17 129/66 93 09/22/20 06:45 88 12 138/72 91 09/22/20 06:30 87 10 L 131/68 90 09/22/20 06:15 101 H 10 L 143/78 91 09/22/20 06:09 94 H 134/71 09/22/20 06:08 92 H 134/71 09/22/20 06:00 100 H 13 134/71 92 09/22/20 05:45 95 H 19 138/72 92 09/22/20 05:30 97 H 13 132/70 91 09/22/20 05:15 90 18 139/73 94 09/22/20 05:00 96 H 13 132/80 91 09/22/20 04:54 94 H 09/22/20 04:45 94 H 12 124/73 91 09/22/20 04:30 101 H 18 129/74 92 09/22/20 04:15 93 H 16 131/69 93 09/22/20 04:00 94 H 16 138/69 94 09/22/20 03:45 94 H 15 132/72 90 09/22/20 03:30 90 14 121/67 90 09/22/20 03:20 98.6 F 09/22/20 03:15 89 13 141/67 92 09/22/20 03:00 86 16 138/68 93 09/22/20 02:45 84 13 133/74 95 09/22/20 02:30 78 17 130/64 92 09/22/20 02:15 76 18 118/63 91 09/22/20 02:00 80 17 113/61 93 09/22/20 01:45 80 17 119/59 94 09/22/20 01:30 78 17 118/65 91 09/22/20 01:15 77 17 105/63 09/22/20 01:00 79 13 107/63 91 09/22/20 00:45 79 14 109/64 09/22/20 00:35 79 111/62 94 09/22/20 00:30 79 15 111/62 92 09/22/20 00:15 81 17 101/61 90 09/22/20 00:00 78 15 118/59 91 09/21/20 23:52 98.4 F 09/21/20 23:45 78 15 112/61 90 09/21/20 23:30 78 19 112/62 92 09/21/20 23:15 77 15 102/63 09/21/20 23:00 78 16 108/60 92 09/21/20 22:50 75 91/64 09/21/20 22:45 77 17 91/64 09/21/20 22:30 77 18 110/58 91 09/21/20 22:15 76 18 109/58 91 09/21/20 22:00 77 18 108/64 94 09/21/20 21:45 76 17 108/60 90 09/21/20 21:30 75 17 105/61 90 09/21/20 21:15 73 18 103/60 95 09/21/20 21:06 75 17 106/60 95 09/21/20 21:00 74 18 103/60 92 09/21/20 20:45 74 18 103/58 94 09/21/20 20:30 73 18 103/61 90 09/21/20 20:15 72 18 102/59 09/21/20 20:00 73 18 97/58 96 09/21/20 19:51 98.8 F 09/21/20 19:45 72 18 91/56 92 09/21/20 19:30 71 18 90/52 93 08 19:15 70 18 96/48 93 08 19:00 70 18 85/49 94 09/21/20 18:45 70 18 86/51 09/21/20 18:30 71 17 87/48 94 09/21/20 18:15 70 18 87/49 93 09/21/20 18:00 71 18 84/51 93 09/21/20 17:45 72 18 85/54 09/21/20 17:30 72 18 86/49 92 09/21/20 17:15 72 17 85/51 09/21/20 17:00 73 18 89/56 93 09/21/20 16:45 73 18 87/55 89 09/21/20 16:30 74 18 93/54 89 09/21/20 16:15 71 14 96/55 90 09/21/20 16:00 97.2 F L 87 87 17 102/57 86 09/21/20 15:45 88 18 99/62 87 09/21/20 15:30 84 18 103/58 88 09/21/20 15:15 82 18 101/58 90 09/21/20 15:05 84 99/62 09/21/20 15:00 83 18 98/59 91 09/21/20 14:45 86 18 104/57 88 09/21/20 14:30 87 18 99/61 88 09/21/20 14:15 85 17 97/59 86 09/21/20 14:00 86 18 99/57 09/21/20 13:45 87 18 95/63 89 - Physical Examination General: Other (Unresponsive, on the vent) HEENT: Positive: Other (Pupils fixed) Neck: Positive: neck supple Cardiac: Positive: Reg Rate and Rhythm Lungs: Positive: Decreased Breath Sounds Neuro: Positive: Other (Patient is unresponsive, on the vent) Abdomen: Positive: Soft Skin: Positive: Clear Extremities: Absent: edema - Labs and Meds Cardiac Enzymes 09/21/20 09/22/20 Range/Units 18:58 10:22 CK-MB (CK-2) 17.8 H 14.4 H (0.0-4.0) ng/mL - Allied health notes Allied health notes reviewed: nursing
--- NOTE | 2020-09-22 13:55 | Progress Note ---
Assessment and Plan Acute toxic metabolic encephalopathy Severe sepsis Community acquired pneumonia coronavirus-19 infection Acute hypoxemic respiratory failure Hyponatremia at presentation Diabetes, poorly controlled Lactic acidosis Urinary tract infection Tobacco use disorder - resume fentanyl for target RASS - discontinued bryan catheter - advance ETT 2 cm (riding high on CXR) - continue Daily SAT and SBT assessment as tolerated - continue to wean supplemental oxygen for target O2 sat's > 92% acutely - VAP bundle addressed - continue lung protective strategies - continue bronchodilators with pulmonary hygiene per RT - wean per pulmonary driven protocols otherwise - continue accuchecks with glycemic control per SSI (While critically ill target blood glucose of 140-180 mg/dL; avoid hypoglycemia) - sedation prn for target RASS -1 to -2 - avoid nephrotoxins, renally dose all medications - continue to avoid benzodiazepine's, reduce the possibility of delirium - complete anti-infective's per ID rec's - prn analgesia per CPOT score - Maintenance of sleep-wake cycle, avoid delirium - continue enteral nutritional support at goal rate as tolerated - G.I. & VTE prophylaxis - PT/OT/ROM exercises - continue mobility protocols for pressure ulcer prophylaxis - Monitor hemodynamics closely - continue other care per attending / other consultants - discharge planning ongoing concurrently COVID SPECIFIC INTERVENTIONS - continue contact and airborne isolation - Remdesivir as per ID/Pulmonary developed protocols (ordered) - continue systemic steroids for severe COVID-19 infection - follow repeat COVID tests results - zinc and vitamin C supplementation - Monitor inflammatory markers per facility protocol - ferritin, D-dimer, CRP - therapeutic anticoagulation per system Protocol based on d-dimer and clinical considerations (not indicated) .... Re-evaluate in am & prn CONDITION: CRITICAL PROGNOSIS: GUARDED CODE STATUS: FULL CODE The high probability of a clinically significant, sudden or life-threatening deterioration of the [respiratory, cardiovascular & neurologic] system(s) required my full and direct attention, intervention and personal management. The aggregate critical care time was [34] minutes without overlap. Time includes spent on; [x] Data Review and interpretation [x] Patient assessment and monitoring of vital signs [x] Documentation [x] Medication orders and management Subjective Date of service: 09/22/20 Principal diagnosis: Ac encephalopathy; CAP; Sepsis; COVID-19 infxn; Ac hypoxemic resp failure Interval history: Patient is seen today for: Acute toxic metabolic encephalopathy; CAP; Severe s epsis; COVID-19 infection; Acute hypoxemic respiratory failure UTI; DM II Seen and examined at bedside; 24hour events reviewed; nursing and respiratory care staff consulted; no adverse overnight events reported to me; resting in bed; decompensated over the weekend and intubated; remains on MVS; no emesis or overt aspiration; lethargic but with increased work of breathing off sedation; no high grade fevers Objective Vital Signs - 12hr 09/22/20 09/22/20 09/22/20 02:00 02:15 02:30 Temperature Pulse Rate 80 76 78 Respiratory 17 18 17 Rate Blood Pressure 113/61 118/63 130/64 O2 Sat by Pulse 93 91 92 Oximetry 09/22/20 09/22/20 09/22/20 02:45 03:00 03:15 Temperature Pulse Rate 84 86 89 Respiratory 13 16 13 Rate Blood Pressure 133/74 138/68 141/67 O2 Sat by Pulse 95 93 92 Oximetry 09/22/20 09/22/20 09/22/20 03:20 03:30 03:45 Temperature 98.6 F Pulse Rate 90 94 H Respiratory 14 15 Rate Blood Pressure 121/67 132/72 O2 Sat by Pulse 90 90 Oximetry 09/22/20 09/22/20 09/22/20 04:00 04:15 04:30 Temperature Pulse Rate 94 H 93 H 101 H Respiratory 16 16 18 Rate Blood Pressure 138/69 131/69 129/74 O2 Sat by Pulse 94 93 92 Oximetry 09/22/20 09/22/20 09/22/20 04:45 04:54 05:00 Temperature Pulse Rate 94 H 94 H 96 H Respiratory 12 13 Rate Blood Pressure 124/73 132/80 O2 Sat by Pulse 91 91 Oximetry 09/22/20 09/22/20 09/22/20 05:15 05:30 05:45 Temperature Pulse Rate 90 97 H 95 H Respiratory 18 13 19 Rate Blood Pressure 139/73 132/70 138/72 O2 Sat by Pulse 94 91 92 Oximetry 09/22/20 09/22/20 09/22/20 06:00 06:08 06:09 Temperature Pulse Rate 100 H 92 H 94 H Respiratory 13 Rate Blood Pressure 134/71 134/71 134/71 O2 Sat by Pulse 92 Oximetry 09/22/20 09/22/20 09/22/20 06:15 06:30 06:45 Temperature Pulse Rate 101 H 87 88 Respiratory 10 L 10 L 12 Rate Blood Pressure 143/78 131/68 138/72 O2 Sat by Pulse 91 90 91 Oximetry 09/22/20 09/22/20 09/22/20 07:00 07:15 07:30 Temperature Pulse Rate 81 92 H 93 H Respiratory 17 13 11 L Rate Blood Pressure 129/66 125/76 123/72 O2 Sat by Pulse 93 92 91 Oximetry 09/22/20 09/22/20 09/22/20 07:34 07:45 08:00 Temperature 98.8 F Pulse Rate 92 H 88 Respiratory 11 L 18 Rate Blood Pressure 124/76 127/68 O2 Sat by Pulse 93 94 Oximetry 09/22/20 09/22/20 09/22/20 08:15 08:30 08:46 Temperature Pulse Rate 98 H 100 H 119 H Respiratory 10 L 10 L 22 Rate Blood Pressure 131/75 135/75 162/90 O2 Sat by Pulse 92 92 95 Oximetry 09/22/20 09/22/20 09/22/20 09:00 09:05 09:16 Temperature Pulse Rate 104 H 110 H 115 H Respiratory 11 L 12 Rate Blood Pressure 137/72 137/72 137/72 O2 Sat by Pulse 90 95 93 Oximetry 09/22/20 09/22/20 09/22/20 09:30 09:46 10:00 Temperature Pulse Rate 106 H 105 H 106 H Respiratory 11 L 10 L 11 L Rate Blood Pressure 135/73 135/73 130/73 O2 Sat by Pulse 91 95 94 Oximetry 09/22/20 09/22/20 09/22/20 10:16 10:30 10:46 Temperature Pulse Rate 107 H 109 H 104 H Respiratory 11 L 11 L 11 L Rate Blood Pressure 135/73 142/73 142/73 O2 Sat by Pulse 95 92 95 Oximetry 09/22/20 09/22/20 09/22/20 11:00 11:16 11:30 Temperature Pulse Rate 105 H 108 H 109 H Respiratory 11 L 11 L 11 L Rate Blood Pressure 126/75 126/75 135/77 O2 Sat by Pulse 93 96 92 Oximetry 09/22/20 09/22/20 09/22/20 11:36 11:46 11:56 Temperature 99.7 F H Pulse Rate 110 H 106 H Respiratory 10 L Rate Blood Pressure 135/77 135/77 O2 Sat by Pulse 97 96 Oximetry 09/22/20 09/22/20 09/22/20 12:00 12:16 12:30 Temperature Pulse Rate 107 H 109 H 107 H Respiratory 10 L 9 L 11 L Rate Blood Pressure 137/73 137/73 132/75 O2 Sat by Pulse 93 97 93 Oximetry 09/22/20 09/22/20 12:46 13:00 Temperature Pulse Rate 105 H 120 H Respiratory 13 14 Rate Blood Pressure 132/75 141/81 O2 Sat by Pulse 98 95 Oximetry Constitutional: no acute distress, other (middle aged female with mildly increased respiratory effort at rest on MVS) Eyes: non-icteric ENT: oropharynx moist, other (ETT 23 cm JOSHUA) Neck: supple, no lymphadenopathy Effort: mildly labored Ascultation: Bilateral: diminished breath sounds, rhonchi Percussion: Bilateral: not dull Cardiovascular: regular rate and rhythm Gastrointestinal: normoactive bowel sounds, soft, non-tender, non-distended (protuberant) Integumentary: normal Extremities: no cyanosis, no edema, pink and warm, pulses normal Neurologic: non-focal exam (grossly), pupils equal and round, motor strength normal and, unable to assess Psychiatric: other (lethargic) CBC and BMP: 09/21/20 02:14 09/21/20 00:46 ABG, PT/INR, D-dimer: ABG ABG pH 7.350 (7.320-7.450) 09/22/20 04:15 POC ABG pCO2 33.4 mmHg (32.0-48.0) 09/22/20 04:15 POC ABG pO2 87.2 mmHg (83-108) 09/22/20 04:15 POC ABG HCO3 18.0 09/22/20 04:15 ABG O2 Saturation 96.9 (0-100) 09/22/20 04:15 PT/INR, D-dimer PT 20.0 Sec. (12.2-14.9) H 09/21/20 02:14 INR 1.65 (0.87-1.13) H 09/21/20 02:14 D-Dimer 4940.20 ng/mlDDU (0-234) H 09/20/20 05:23 Abnormal lab findings: Abnormal Labs 09/15/20 09/15/20 09/15/20 18:46 18:46 18:46 Hgb 14.4 H MCH MCHC Lymph % (Auto) Lymph # (Auto) Seg Neutrophils % Seg Neutrophils # PT INR APTT D-Dimer Heparin Anti-Xa Level ABG pH POC ABG pCO2 POC ABG pO2 ABG Oxyhemoglobin ABG Sodium ABG Potassium ABG Chloride ABG Glucose Sodium 128 L Potassium 3.2 L Chloride 89.3 L Carbon Dioxide BUN Creatinine Glucose 388 H POC Glucose Lactic Acid Calcium 8.2 L Ferritin AST 69 H Ammonia Lactate Dehydrogenase Total Creatine Kinase CK-MB (CK-2) Troponin T C-Reactive Protein Albumin 3.6 L Triglycerides HDL Cholesterol TSH 34.670 H Free T4 Arterial Blood Glucose Arterial Blood Ionized Calcium Urine WBC (Auto) Salicylates Acetaminophen Coronavirus (PCR) 09/15/20 09/15/20 09/15/20 18:46 18:46 18:46 Hgb MCH MCHC Lymph % (Auto) Lymph # (Auto) Seg Neutrophils % Seg Neutrophils # PT INR APTT D-Dimer Heparin Anti-Xa Level ABG pH POC ABG pCO2 POC ABG pO2 ABG Oxyhemoglobin ABG Sodium ABG Potassium ABG Chloride ABG Glucose Sodium Potassium Chloride Carbon Dioxide BUN Creatinine Glucose POC Glucose Lactic Acid Calcium Ferritin AST Ammonia 23.0 L Lactate Dehydrogenase Total Creatine Kinase CK-MB (CK-2) Troponin T C-Reactive Protein Albumin Triglycerides HDL Cholesterol TSH Free T4 Arterial Blood Glucose Arterial Blood Ionized Calcium Urine WBC (Auto) Salicylates < 0.3 L Acetaminophen 9.1 L Coronavirus (PCR) 09/15/20 09/15/20 09/15/20 19:38 19:40 19:43 Hgb MCH MCHC Lymph % (Auto) Lymph # (Auto) Seg Neutrophils % Seg Neutrophils # PT INR APTT D-Dimer Heparin Anti-Xa Level ABG pH POC ABG pCO2 POC ABG pO2 ABG Oxyhemoglobin ABG Sodium ABG Potassium ABG Chloride ABG Glucose Sodium Potassium Chloride Carbon Dioxide BUN Creatinine Glucose POC Glucose 398 H Lactic Acid 2.70 H* Calcium Ferritin AST Ammonia Lactate Dehydrogenase Total Creatine Kinase CK-MB (CK-2) Troponin T C-Reactive Protein Albumin Triglycerides HDL Cholesterol TSH Free T4 0.10 L Arterial Blood Glucose Arterial Blood Ionized Calcium Urine WBC (Auto) Salicylates Acetaminophen Coronavirus (PCR) 09/15/20 09/15/20 09/16/20 20:02 Unknown 04:47 Hgb 14.8 H MCH 33 H MCHC 36 H Lymph % (Auto) 7.3 L Lymph # (Auto) 0.8 L Seg Neutrophils % 85.7 H Seg Neutrophils # 8.9 H PT INR APTT D-Dimer Heparin Anti-Xa Level ABG pH POC ABG pCO2 31.1 L POC ABG pO2 46.9 L ABG Oxyhemoglobin 82.8 L ABG Sodium 129.8 L ABG Potassium 3.1 L ABG Chloride ABG Glucose 374 H Sodium Potassium Chloride Carbon Dioxide BUN Creatinine Glucose POC Glucose Lactic Acid Calcium Ferritin AST Ammonia Lactate Dehydrogenase Total Creatine Kinase CK-MB (CK-2) Troponin T C-Reactive Protein Albumin Triglycerides HDL Cholesterol TSH Free T4 Arterial Blood Glucose 374 H Arterial Blood Ionized Calcium Urine WBC (Auto) > 182.0 H Salicylates Acetaminophen Coronavirus (PCR) 09/16/20 09/16/20 09/16/20 04:47 07:20 08:00 Hgb MCH MCHC Lymph % (Auto) Lymph # (Auto) Seg Neutrophils % Seg Neutrophils # PT INR APTT D-Dimer Heparin Anti-Xa Level ABG pH POC ABG pCO2 POC ABG pO2 ABG Oxyhemoglobin ABG Sodium ABG Potassium ABG Chloride ABG Glucose Sodium 135 L D Potassium Chloride 94.1 L Carbon Dioxide BUN Creatinine Glucose 418 H POC Glucose 403 H Lactic Acid Calcium 8.3 L Ferritin AST Ammonia Lactate Dehydrogenase Total Creatine Kinase CK-MB (CK-2) Troponin T C-Reactive Protein Albumin Triglycerides HDL Cholesterol TSH Free T4 Arterial Blood Glucose Arterial Blood Ionized Calcium Urine WBC (Auto) Salicylates Acetaminophen Coronavirus (PCR) Positive A 09/16/20 09/16/20 09/16/20 11:43 16:17 21:38 Hgb MCH MCHC Lymph % (Auto) Lymph # (Auto) Seg Neutrophils % Seg Neutrophils # PT INR APTT D-Dimer 702.65 H Heparin Anti-Xa Level ABG pH POC ABG pCO2 POC ABG pO2 ABG Oxyhemoglobin ABG Sodium ABG Potassium ABG Chloride ABG Glucose Sodium Potassium Chloride Carbon Dioxide BUN Creatinine Glucose POC Glucose 417 H 353 H Lactic Acid Calcium Ferritin AST Ammonia Lactate Dehydrogenase Total Creatine Kinase CK-MB (CK-2) Troponin T C-Reactive Protein Albumin Triglycerides HDL Cholesterol TSH Free T4 Arterial Blood Glucose Arterial Blood Ionized Calcium Urine WBC (Auto) Salicylates Acetaminophen Coronavirus (PCR) 08/03/21 08/03/21 08/03/21 21:38 21:38 21:38 Hgb MCH MCHC Lymph % (Auto) Lymph # (Auto) Seg Neutrophils % Seg Neutrophils # PT INR APTT D-Dimer Heparin Anti-Xa Level ABG pH POC ABG pCO2 POC ABG pO2 ABG Oxyhemoglobin ABG Sodium ABG Potassium ABG Chloride ABG Glucose Sodium Potassium Chloride Carbon Dioxide BUN Creatinine Glucose POC Glucose Lactic Acid Calcium Ferritin 1089.0 H AST Ammonia Lactate Dehydrogenase 722 H Total Creatine Kinase CK-MB (CK-2) Troponin T C-Reactive Protein 6.80 H Albumin Triglycerides HDL Cholesterol TSH Free T4 Arterial Blood Glucose Arterial Blood Ionized Calcium Urine WBC (Auto) Salicylates Acetaminophen 5.0 L Coronavirus (PCR) 09/16/20 09/16/20 09/17/20 21:38 22:24 04:59 Hgb MCH MCHC Lymph % (Auto) Lymph # (Auto) Seg Neutrophils % Seg Neutrophils # PT INR APTT D-Dimer Heparin Anti-Xa Level ABG pH POC ABG pCO2 POC ABG pO2 ABG Oxyhemoglobin ABG Sodium ABG Potassium ABG Chloride ABG Glucose Sodium 134 L 135 L Potassium 3.5 L 3.0 L Chloride 95.1 L 97.2 L Carbon Dioxide BUN Creatinine Glucose 288 H 149 H POC Glucose 307 H Lactic Acid Calcium 8.2 L Ferritin AST 43 H 49 H Ammonia Lactate Dehydrogenase Total Creatine Kinase CK-MB (CK-2) Troponin T C-Reactive Protein Albumin 3.7 L 3.3 L Triglycerides HDL Cholesterol TSH Free T4 Arterial Blood Glucose Arterial Blood Ionized Calcium Urine WBC (Auto) Salicylates Acetaminophen Coronavirus (PCR) 09/17/20 09/17/20 09/17/20 12:25 16:57 21:30 Hgb MCH MCHC Lymph % (Auto) Lymph # (Auto) Seg Neutrophils % Seg Neutrophils # PT INR APTT D-Dimer Heparin Anti-Xa Level ABG pH POC ABG pCO2 POC ABG pO2 ABG Oxyhemoglobin ABG Sodium ABG Potassium ABG Chloride ABG Glucose Sodium Potassium Chloride Carbon Dioxide BUN Creatinine Glucose POC Glucose 199 H 313 H 304 H Lactic Acid Calcium Ferritin AST Ammonia Lactate Dehydrogenase Total Creatine Kinase CK-MB (CK-2) Troponin T C-Reactive Protein Albumin Triglycerides HDL Cholesterol TSH Free T4 Arterial Blood Glucose Arterial Blood Ionized Calcium Urine WBC (Auto) Salicylates Acetaminophen Coronavirus (PCR) 09/18/20 09/18/20 09/18/20 08:01 08:05 12:36 Hgb MCH MCHC Lymph % (Auto) Lymph # (Auto) Seg Neutrophils % Seg Neutrophils # PT INR APTT D-Dimer Heparin Anti-Xa Level ABG pH POC ABG pCO2 POC ABG pO2 ABG Oxyhemoglobin ABG Sodium ABG Potassium ABG Chloride ABG Glucose Sodium Potassium 3.1 L Chloride Carbon Dioxide BUN Creatinine Glucose 112 H POC Glucose 125 H 159 H Lactic Acid Calcium 8.3 L Ferritin AST 47 H Ammonia Lactate Dehydrogenase Total Creatine Kinase CK-MB (CK-2) Troponin T C-Reactive Protein Albumin 3.3 L Triglycerides HDL Cholesterol TSH Free T4 Arterial Blood Glucose Arterial Blood Ionized Calcium Urine WBC (Auto) Salicylates Acetaminophen Coronavirus (PCR) 09/18/20 09/18/20 09/19/20 16:57 21:40 06:10 Hgb MCH MCHC Lymph % (Auto) Lymph # (Auto) Seg Neutrophils % Seg Neutrophils # PT INR APTT D-Dimer Heparin Anti-Xa Level ABG pH POC ABG pCO2 POC ABG pO2 ABG Oxyhemoglobin ABG Sodium ABG Potassium ABG Chloride ABG Glucose Sodium Potassium 2.8 L* Chloride 97.7 L Carbon Dioxide BUN Creatinine 0.4 L Glucose 146 H POC Glucose 180 H 225 H Lactic Acid Calcium 8.2 L Ferritin AST 45 H Ammonia Lactate Dehydrogenase Total Creatine Kinase CK-MB (CK-2) Troponin T C-Reactive Protein Albumin 3.5 L Triglycerides HDL Cholesterol TSH Free T4 Arterial Blood Glucose Arterial Blood Ionized Calcium Urine WBC (Auto) Salicylates Acetaminophen Coronavirus (PCR) 09/19/20 09/19/20 09/19/20 08:06 11:14 17:50 Hgb MCH MCHC Lymph % (Auto) Lymph # (Auto) Seg Neutrophils % Seg Neutrophils # PT INR APTT D-Dimer Heparin Anti-Xa Level ABG pH POC ABG pCO2 POC ABG pO2 ABG Oxyhemoglobin ABG Sodium ABG Potassium ABG Chloride ABG Glucose Sodium Potassium Chloride Carbon Dioxide BUN Creatinine Glucose POC Glucose 175 H 210 H 291 H Lactic Acid Calcium Ferritin AST Ammonia Lactate Dehydrogenase Total Creatine Kinase CK-MB (CK-2) Troponin T C-Reactive Protein Albumin Triglycerides HDL Cholesterol TSH Free T4 Arterial Blood Glucose Arterial Blood Ionized Calcium Urine WBC (Auto) Salicylates Acetaminophen Coronavirus (PCR) 09/19/20 09/20/20 09/20/20 21:30 05:23 05:23 Hgb MCH MCHC Lymph % (Auto) Lymph # (Auto) Seg Neutrophils % Seg Neutrophils # PT INR APTT D-Dimer Heparin Anti-Xa Level ABG pH POC ABG pCO2 POC ABG pO2 ABG Oxyhemoglobin ABG Sodium ABG Potassium ABG Chloride ABG Glucose Sodium 131 L Potassium 3.3 L D Chloride 95.4 L Carbon Dioxide 18 L BUN Creatinine 0.4 L Glucose 169 H POC Glucose 232 H Lactic Acid Calcium 8.3 L Ferritin 738.9 H AST Ammonia Lactate Dehydrogenase 882 H Total Creatine Kinase CK-MB (CK-2) Troponin T C-Reactive Protein 11.40 H Albumin Triglycerides HDL Cholesterol TSH Free T4 Arterial Blood Glucose Arterial Blood Ionized Calcium Urine WBC (Auto) Salicylates Acetaminophen Coronavirus (PCR) 09/20/20 09/20/20 09/20/20 05:23 06:50 10:46 Hgb MCH MCHC Lymph % (Auto) Lymph # (Auto) Seg Neutrophils % Seg Neutrophils # PT INR APTT D-Dimer 4940.20 H Heparin Anti-Xa Level ABG pH 7.289 L POC ABG pCO2 POC ABG pO2 50.1 L ABG Oxyhemoglobin 80.8 L ABG Sodium 130.8 L ABG Potassium ABG Chloride 97.0 L ABG Glucose 275 H Sodium Potassium Chloride Carbon Dioxide BUN Creatinine Glucose POC Glucose 242 H Lactic Acid Calcium Ferritin AST Ammonia Lactate Dehydrogenase Total Creatine Kinase CK-MB (CK-2) Troponin T C-Reactive Protein Albumin Triglycerides HDL Cholesterol TSH Free T4 Arterial Blood Glucose 275 H Arterial Blood Ionized Calcium 4.2 L Urine WBC (Auto) Salicylates Acetaminophen Coronavirus (PCR) 09/20/20 09/20/20 09/20/20 11:58 16:30 16:41 Hgb MCH MCHC Lymph % (Auto) Lymph # (Auto) Seg Neutrophils % Seg Neutrophils # PT INR APTT D-Dimer Heparin Anti-Xa Level ABG pH POC ABG pCO2 27.8 L POC ABG pO2 79.7 L ABG Oxyhemoglobin ABG Sodium 131.0 L ABG Potassium ABG Chloride ABG Glucose 297 H Sodium Potassium Chloride Carbon Dioxide BUN Creatinine Glucose POC Glucose 262 H 283 H Lactic Acid Calcium Ferritin AST Ammonia Lactate Dehydrogenase Total Creatine Kinase CK-MB (CK-2) Troponin T C-Reactive Protein Albumin Triglycerides HDL Cholesterol TSH Free T4 Arterial Blood Glucose 297 H Arterial Blood Ionized Calcium 4.3 L Urine WBC (Auto) Salicylates Acetaminophen Coronavirus (PCR) 09/20/20 09/20/20 09/21/20 17:26 21:29 00:46 Hgb MCH MCHC Lymph % (Auto) Lymph # (Auto) Seg Neutrophils % Seg Neutrophils # PT INR APTT D-Dimer Heparin Anti-Xa Level ABG pH POC ABG pCO2 POC ABG pO2 ABG Oxyhemoglobin ABG Sodium ABG Potassium ABG Chloride ABG Glucose Sodium Potassium Chloride Carbon Dioxide BUN Creatinine Glucose POC Glucose 297 H 248 H Lactic Acid Calcium Ferritin AST Ammonia Lactate Dehydrogenase Total Creatine Kinase CK-MB (CK-2) Troponin T 0.444 H* C-Reactive Protein Albumin Triglycerides 156 H HDL Cholesterol 22 L TSH Free T4 Arterial Blood Glucose Arterial Blood Ionized Calcium Urine WBC (Auto) Salicylates Acetaminophen Coronavirus (PCR) 09/21/20 09/21/20 09/21/20 00:46 02:14 03:22 Hgb MCH MCHC Lymph % (Auto) Lymph # (Auto) Seg Neutrophils % Seg Neutrophils # PT 20.0 H INR 1.65 H APTT 38.2 H D-Dimer Heparin Anti-Xa Level ABG pH POC ABG pCO2 POC ABG pO2 70.3 L ABG Oxyhemoglobin 92.2 L ABG Sodium 134.2 L ABG Potassium ABG Chloride ABG Glucose 187 H Sodium 134 L Potassium Chloride Carbon Dioxide 18 L BUN 23 H Creatinine Glucose 198 H POC Glucose Lactic Acid Calcium 6.7 L D Ferritin AST Ammonia Lactate Dehydrogenase Total Creatine Kinase CK-MB (CK-2) Troponin T C-Reactive Protein Albumin Triglycerides HDL Cholesterol TSH Free T4 Arterial Blood Glucose 187 H Arterial Blood Ionized Calcium 4.2 L Urine WBC (Auto) Salicylates Acetaminophen Coronavirus (PCR) 09/21/20 09/21/20 09/21/20 07:26 08:15 11:21 Hgb MCH MCHC Lymph % (Auto) Lymph # (Auto) Seg Neutrophils % Seg Neutrophils # PT INR APTT D-Dimer Heparin Anti-Xa Level 0.97 H ABG pH POC ABG pCO2 POC ABG pO2 ABG Oxyhemoglobin ABG Sodium ABG Potassium ABG Chloride ABG Glucose Sodium Potassium Chloride Carbon Dioxide BUN Creatinine Glucose POC Glucose 157 H 153 H Lactic Acid Calcium Ferritin AST Ammonia Lactate Dehydrogenase Total Creatine Kinase CK-MB (CK-2) Troponin T C-Reactive Protein Albumin Triglycerides HDL Cholesterol TSH Free T4 Arterial Blood Glucose Arterial Blood Ionized Calcium Urine WBC (Auto) Salicylates Acetaminophen Coronavirus (PCR) 09/21/20 09/21/20 09/21/20 15:16 15:59 18:58 Hgb MCH MCHC Lymph % (Auto) Lymph # (Auto) Seg Neutrophils % Seg Neutrophils # PT INR APTT D-Dimer Heparin Anti-Xa Level 0.90 H ABG pH POC ABG pCO2 POC ABG pO2 ABG Oxyhemoglobin ABG Sodium ABG Potassium ABG Chloride ABG Glucose Sodium Potassium Chloride Carbon Dioxide BUN Creatinine Glucose POC Glucose 192 H Lactic Acid Calcium Ferritin AST Ammonia Lactate Dehydrogenase Total Creatine Kinase CK-MB (CK-2) Troponin T C-Reactive Protein 8.40 H Albumin Triglycerides HDL Cholesterol TSH Free T4 Arterial Blood Glucose Arterial Blood Ionized Calcium Urine WBC (Auto) Salicylates Acetaminophen Coronavirus (PCR) 09/21/20 09/21/20 09/22/20 18:58 21:14 01:33 Hgb MCH MCHC Lymph % (Auto) Lymph # (Auto) Seg Neutrophils % Seg Neutrophils # PT INR APTT D-Dimer Heparin Anti-Xa Level 0.78 H ABG pH POC ABG pCO2 POC ABG pO2 ABG Oxyhemoglobin ABG Sodium ABG Potassium ABG Chloride ABG Glucose Sodium Potassium Chloride Carbon Dioxide BUN Creatinine Glucose POC Glucose 172 H Lactic Acid Calcium Ferritin AST Ammonia Lactate Dehydrogenase Total Creatine Kinase 536 H CK-MB (CK-2) 17.8 H Troponin T 0.793 H* D C-Reactive Protein Albumin Triglycerides HDL Cholesterol TSH Free T4 Arterial Blood Glucose Arterial Blood Ionized Calcium Urine WBC (Auto) Salicylates Acetaminophen Coronavirus (PCR) 09/22/20 09/22/20 09/22/20 04:15 07:15 10:22 Hgb MCH MCHC Lymph % (Auto) Lymph # (Auto) Seg Neutrophils % Seg Neutrophils # PT INR APTT D-Dimer Heparin Anti-Xa Level ABG pH POC ABG pCO2 POC ABG pO2 ABG Oxyhemoglobin ABG Sodium 132.9 L ABG Potassium ABG Chloride ABG Glucose 155 H Sodium Potassium Chloride Carbon Dioxide BUN Creatinine Glucose POC Glucose 159 H Lactic Acid Calcium Ferritin AST Ammonia Lactate Dehydrogenase Total Creatine Kinase 1159 H CK-MB (CK-2) 14.4 H Troponin T 0.501 H* D C-Reactive Protein Albumin Triglycerides HDL Cholesterol TSH Free T4 Arterial Blood Glucose 155 H Arterial Blood Ionized Calcium 4.3 L Urine WBC (Auto) Salicylates Acetaminophen Coronavirus (PCR) 09/22/20 11:34 Hgb MCH MCHC Lymph % (Auto) Lymph # (Auto) Seg Neutrophils % Seg Neutrophils # PT INR APTT D-Dimer Heparin Anti-Xa Level ABG pH POC ABG pCO2 POC ABG pO2 ABG Oxyhemoglobin ABG Sodium ABG Potassium ABG Chloride ABG Glucose Sodium Potassium Chloride Carbon Dioxide BUN Creatinine Glucose POC Glucose 206 H Lactic Acid Calcium Ferritin AST Ammonia Lactate Dehydrogenase Total Creatine Kinase CK-MB (CK-2) Troponin T C-Reactive Protein Albumin Triglycerides HDL Cholesterol TSH Free T4 Arterial Blood Glucose Arterial Blood Ionized Calcium Urine WBC (Auto) Salicylates Acetaminophen Coronavirus (PCR) Chest x-ray: image reviewed (ETT [place]) Allied health notes reviewed: nursing
[2020-09-22] MEDS: fentaNYL DRIP Premix 2,000 MCG/100 ML BAG IV SCH (13:57)
--- NOTE | 2020-09-22 14:12 | XRay Report ---
ABDOMEN 1 VIEW 09/22/2020 1:40 PM INDICATION / CLINICAL INFORMATION: OGT PLACEMENT. COMPARISON: Yesterday. FINDINGS: TUBES / LINES: The orogastric tube tip overlies the gastric body with the proximal sidehole several c entimeters below the gastroesophageal junction. BOWEL GAS PATTERN: No significant abnormality. FREE AIR / EXTRALUMINAL GAS: None. ADDITIONAL FINDINGS: No significant additional findings. IMPRESSION: Orogastric tube tip overlies the mid gastric body. Signer Name: Dieter Pascual MD Signed: 09/22/2020 2:07 PM Workstation Name: [id number]
--- NOTE | 2020-09-22 16:22 | Progress Note ---
Assessment and Plan Cultures: Blood culture no growth so far Covid PUI positive A/P: 54-year-old female past medical history bipolar, hypothyroidism, hyperten aubree, diabetes now with: #Acute hypoxic respiratory failure: Likely secondary to pneumonia, bacteri al/aspiration versus viral. Now on the vent #Covid pneumonia: PCR positive #Bilateral pneumonia #Drug overdose: With trazodone Recs: -Complete 5 days Remdesivir -Steroids per primary for 10 days -Actemra ordered however unavailable. Thank you for the consult, we will continue to follow. Dominique Patel MD [facility] ([facility]) O: [phone] F: [phone] Subjective Date of service: 09/22/20 Principal diagnosis: Ac encephalopathy; CAP; Sepsis; COVID-19 infxn; Ac hypoxemic resp failure Interval history: Afebrile, no acute change. Imaging personally reviewed: Chest x-ray: Personally multifocal airspace disease. Objective - Exam Narrative Exam: Physical exam deferred to reduce risk of transmission of COVID-19. Please refer to primary team's note. - Constitutional Vitals: Vital Signs Temp Pulse Resp BP Pulse Ox 99.7 F H 86 16 104/53 88 09/22/20 11:56 09/22/20 15:00 09/22/20 15:00 09/22/20 15:00 09/22/20 15:00 Temperature -Last 24 Hours Temperature 99.7 F Temperature 98.8 F Temperature 98.6 F Temperature 98.4 F Temperature 98.8 F - Labs CBC & Chem 7: 09/21/20 02:14 09/21/20 00:46 Labs: Abnormal lab results 09/21/20 09/21/20 09/21/20 Range/Units 18:58 18:58 21:14 Heparin Anti-Xa Level 0.90 H (0.3-0.7) U.I./ml ABG Sodium (136.0-145.0) mmol/L ABG Glucose (65-95) mg/dL POC Glucose 172 H (70-105) mg/dL Total Creatine Kinase 536 H (30-135) units/L CK-MB (CK-2) 17.8 H (0.0-4.0) ng/mL Troponin T 0.793 H* D (0.00-0.029) ng/mL Arterial Blood Glucose (65-95) mg/dL Arterial Blood Ionized Calcium (4.6-5.3) mg/dL 09/22/20 09/22/20 09/22/20 Range/Units 01:33 04:15 07:15 Heparin Anti-Xa Level 0.78 H (0.3-0.7) U.I./ml ABG Sodium 132.9 L (136.0-145.0) mmol/L ABG Glucose 155 H (65-95) mg/dL POC Glucose 159 H (70-105) mg/dL Total Creatine Kinase (30-135) units/L CK-MB (CK-2) (0.0-4.0) ng/mL Troponin T (0.00-0.029) ng/mL Arterial Blood Glucose 155 H (65-95) mg/dL Arterial Blood Ionized Calcium 4.3 L (4.6-5.3) mg/dL 09/22/20 09/22/20 Range/Units 10:22 11:34 Heparin Anti-Xa Level (0.3-0.7) U.I./ml ABG Sodium (136.0-145.0) mmol/L ABG Glucose (65-95) mg/dL POC Glucose 206 H (70-105) mg/dL Total Creatine Kinase 1159 H (30-135) units/L CK-MB (CK-2) 14.4 H (0.0-4.0) ng/mL Troponin T 0.501 H* D (0.00-0.029) ng/mL Arterial Blood Glucose (65-95) mg/dL Arterial Blood Ionized Calcium (4.6-5.3) mg/dL
--- NOTE | 2020-09-22 18:54 | Progress Note ---
<DELANEYMiniNANYJanet - Last Filed: 09/22/20 18:52> Assessment and Plan Assessment and plan: This is a 54-year-old female with bipolar disorder, hypothyroidism, hypertension, diabetes mellitus admitted for acute hypoxic respiratory failure, COVID-19 pneumonia, NSTEMI Neuro: Acute metabolic encephalopathy, drug ingestion, h/o bipolar -Psych consult, appreciate recommendations -Zoloft -Patient is not sedated -Patient follows commands, PERRL -Avoid delirium -Reorientation as needed -Sedated with fentanyl Cardiology: NSTEMI, h/o HTN -Cardiology consulted, appreciate recommendations -Echocardiogram pending -Aspirin 162, Plavix 75, beta-genny, as needed nitroglycerin -Blood pressure monitoring per protocol -Heparin drip Respiratory: Acute hypoxic respiratory failure -On mechanical ventilation, wean as tolerated -CCM consulted, patient recommendations -VAP bundle -SPO2 monitoring -Serial CXR METS -Current vent settings: Tidal line 450, rate of 18, PEEP of 10, FiO2 90 -RT to advance her ETT 2 cm GI: NAD -Nutrition consulted, patient recommendations -Tube feedings -Accu-Cheks every 6 -SSI -PPI -As needed MiraLAX, MOM : Slight hyponatremia -Remove Laura catheter today -Daily weights -Trend BMP Endo: Hypothyroidism, h/o DM -SSI -Accu-Cheks every 6 -Synthroid -Avoid hypoglycemia -Long-acting insulin Heme: NAD -Trend CBC -Transfuse for hemoglobin less than 7 -Systemic anticoagulation with heparin drip ID: COVID-19 pneumonia, UTI, sepsis -COVID-19 PCR + 09/16/2020 -Very disease consulted, appreciate recommendations -S/p remdesivir 5 days -Dexamethasone -Awaiting Actemra -ABX completed -Contact/droplet precautions -Trend COVID-19 inflammatory markers The high probability of a clinically significant, sudden or life threatening deterioration of the [cardiorespiratory] system(s) required my full and direct attention, intervention and personal management. The aggregate critical care time was [60] minutes. This time is in addition to time spent performing reported procedures but includes the following: [x] Data Review and interpretation [x] Patient assessment and monitoring of vital signs [x] Documentation [x] Medication orders and management Disposition Plan: icu Total Time Spent with Patient (Minutes): 60 History Interval history: This is a 54-year-old female with bipolar disorder, hypothyroidism, hypertension, diabetes mellitus who presents to the emergency department via EMS after having being found on the floor with a generalized weakness vs syncope as the patient is in the case that she took some trazodone in order to get to sleep but cannot recall how many tablets she took her dosage. The final regimen patient was confused but arousable and responds to questions during her course of stay. In the emergency department she was found to be hypoxic upon arrival with O2 sat of 82% on room air and was placed on supplemental oxygen. Work-up in the emergency department included a CXR which revealed patchy parenchymal opacities, hyponatremia of 128, hypokalemia 3.2, elevated blood glucose of 388, lactic acidosis 2.7, elevated TSH at 34.67 and free T4 at 0.1. UA revealed UTI and tox screen revealed Tylenol level of 9.1. Patient was admitted to the hospital service with acute hypoxic respiratory failure secondary to pneumonia, hypokalemia, drug overdose and hyperglycemia. She was admitted as a COVID-19 PUI and infectious disease was also consulted. Psych was consulted for history of bipolar and possible drug overdose. Upon arrival to the ICU for progressive shortness of breath and progressively worsening CXR patient was noted to have an NSTEMI and cardiology was consulted. 09/16/2020 COVID-pneumonia Coronavirus PCR positive Patient on 5 L nasal cannula oxygen 09/17/2020 Covid pneumonia Covid PCR positive yesterday Patient on 5 L nasal cannula oxygen ID consult appreciated On remdesivir 09/18/2020 Still on 5 L nasal cannula oxygen Saturations dropped to 88% on 3 L nasal cannula oxygen Trying to wean but not possible Continue remdesivir 09/20/2020; Patient is severely hypoxemic, requiring very high flow oxygen And intermittent BiPAP, x-ray chest worsening infiltrates Patient is severely hypoxemic even on BiPAP, metal patternmaker recommend Transfer to ICU for close observation and possible intubation if no improvement I called NOK patient's mother and discussed in detail patient's deterioration, severe hypoxemia Transfer to ICU, possible intubation if needed she informed me that. Her recently With Covid infection, and she herself is Covid positive. 09/21/2020; patient was intubated yesterday On ventilatory support Non-ST elevation FL, check echocardiogram Cardiology evaluation noted and appreciated Discussed with 09/22: Patient's PEEP was increased to 14 systemically. CCM, will order to remove her Laura catheter today and IV heparin was changed to IV Lovenox Hospitalist Physical - Constitutional Vitals: Temp Pulse Resp BP Pulse Ox 98.4 F 73 18 100/56 91 09/22/20 16:00 09/22/20 18:46 09/22/20 18:46 09/22/20 18:46 09/22/20 18:46 General appearance: Present: no acute distress, well-nourished, other (Intubated on vent) - EENT Eyes: Present: PERRL ENT: clear oral mucosa - Neck Neck: Present: normal ROM - Respiratory Respiratory effort: normal Respiratory: bilateral: CTA - Cardiovascular Rhythm: regular Heart Sounds: Present: S1 & S2. Absent: systolic murmur, diastolic murmur - Extremities Extremities: no ischemia, pulses intact, pulses symmetrical, No edema, normal temperature, normal color Peripheral Pulses: within normal limits - Abdominal General gastrointestinal: soft, non-tender, non-distended, normal bowel sounds - Integumentary Integumentary: Present: warm, dry - Psychiatric Psychiatric: cooperative (Follow simple command) - Neurologic Neurologic: other (follows simple commands) - Allied Health Allied health notes reviewed: nursing, RT, social work HEART Score - HEART Score Troponin: Troponin T 0.501 ng/mL (0.00-0.029) H* D 09/22/20 10:22 Results - Labs CBC & Chem 7: 09/21/20 02:14 09/21/20 00:46 Labs: Laboratory Last Values WBC 10.4 K/mm3 (4.5-11.0) 09/16/20 04:47 RBC 4.53 M/mm3 (3.65-5.03) 09/16/20 04:47 Hgb 13.5 gm/dl (10.1-14.3) 09/21/20 02:14 Hct 38.8 % (30.3-42.9) 09/21/20 02:14 MCV 91 fl (79-97) 09/16/20 04:47 MCH 33 pg (28-32) H 09/16/20 04:47 MCHC 36 % (30-34) H 09/16/20 04:47 RDW 14.2 % (13.2-15.2) 09/16/20 04:47 Plt Count 176 K/mm3 (140-440) 09/21/20 02:14 Lymph % (Auto) 7.3 % (13.4-35.0) L 09/16/20 04:47 [place] % (Auto) 6.6 % (0.0-7.3) 09/16/20 04:47 Eos % (Auto) 0.0 % (0.0-4.3) 09/16/20 04:47 Baso % (Auto) 0.4 % (0.0-1.8) 09/16/20 04:47 Lymph # (Auto) 0.8 K/mm3 (1.2-5.4) L 09/16/20 04:47 [place] # (Auto) 0.7 K/mm3 (0.0-0.8) 09/16/20 04:47 Eos # (Auto) 0.0 K/mm3 (0.0-0.4) 09/16/20 04:47 Baso # (Auto) 0.0 K/mm3 (0.0-0.1) 09/16/20 04:47 Seg Neutrophils % 85.7 % (40.0-70.0) H 09/16/20 04:47 Seg Neutrophils # 8.9 K/mm3 (1.8-7.7) H 09/16/20 04:47 PT 20.0 Sec. (12.2-14.9) H 09/21/20 02:14 INR 1.65 (0.87-1.13) H 09/21/20 02:14 APTT 38.2 Sec. (24.2-36.6) H 09/21/20 02:14 D-Dimer 4940.20 ng/mlDDU (0-234) H 09/20/20 05:23 Heparin Anti-Xa Level 0.45 U.I./ml (0.3-0.7) 09/22/20 10:22 ABG pH 7.350 (7.320-7.450) 09/22/20 04:15 POC ABG pCO2 33.4 mmHg (32.0-48.0) 09/22/20 04:15 POC ABG pO2 87.2 mmHg (83-108) 09/22/20 04:15 POC ABG HCO3 18.0 09/22/20 04:15 ABG O2 Saturation 96.9 (0-100) 09/22/20 04:15 POC ABG Base Excess -6.6 09/22/20 04:15 ABG Hemoglobin 14.1 (12.0-17.5) 09/22/20 04:15 ABG Oxyhemoglobin 95.9 (94-98) 09/22/20 04:15 ABG Methemoglobin 0.3 (0.0-1.5) 09/22/20 04:15 ABG Sodium 132.9 mmol/L (136.0-145.0) L 09/22/20 04:15 ABG Potassium 4.3 mmol/L (3.40-4.50) 09/22/20 04:15 ABG Chloride 106.0 mmol/L (98-107) 09/22/20 04:15 ABG Glucose 155 mg/dL (65-95) H 09/22/20 04:15 VBG pH 7.368 (7.320-7.420) 09/15/20 18:46 Carboxyhemoglobin 0.7 (0.5-1.5) 09/22/20 04:15 FiO2 % 100.0 09/22/20 04:15 Sodium 134 mmol/L (137-145) L 09/21/20 00:46 Potassium 3.9 mmol/L (3.6-5.0) 09/21/20 00:46 Chloride 103.7 mmol/L (98-107) 09/21/20 00:46 Carbon Dioxide 18 mmol/L (22-30) L 09/21/20 00:46 Anion Gap 16 mmol/L 09/21/20 00:46 BUN 23 mg/dL (7-17) H 09/21/20 00:46 Creatinine 0.9 mg/dL (0.6-1.2) D 09/21/20 00:46 Estimated GFR > 60 ml/min 09/21/20 00:46 BUN/Creatinine Ratio 26 % 09/21/20 00:46 Glucose 198 mg/dL (65-100) H 09/21/20 00:46 POC Glucose 273 mg/dL (70-105) H 09/22/20 16:35 Lactic Acid 1.80 mmol/L (0.7-2.0) 09/17/20 04:59 Calcium 6.7 mg/dL (8.4-10.2) L D 09/21/20 00:46 Magnesium 1.70 mg/dL (1.7-2.3) 09/21/20 00:46 Ferritin 738.9 ng/mL (10.0-200.0) H 09/20/20 05:23 Total Bilirubin 0.80 mg/dL (0.1-1.2) 09/19/20 06:10 AST 45 units/L (5-40) H 09/19/20 06:10 ALT 35 units/L (7-56) 09/19/20 06:10 Alkaline Phosphatase 108 units/L (35-129) 09/19/20 06:10 Ammonia 23.0 umol/L (25-60) L 09/15/20 18:46 Lactate Dehydrogenase 882 units/L (91-180) H 09/20/20 05:23 Total Creatine Kinase 1159 units/L (30-135) H 09/22/20 10:22 CK-MB (CK-2) 14.4 ng/mL (0.0-4.0) H 09/22/20 10:22 CK-MB (CK-2) Rel Index 1.2 (0-4) 09/22/20 10:22 Troponin T 0.501 ng/mL (0.00-0.029) H* D 09/22/20 10:22 C-Reactive Protein 8.40 mg/dL (0.00-1.30) H 09/21/20 15:16 Total Protein 6.6 g/dL (6.3-8.2) 09/19/20 06:10 Albumin 3.5 g/dL (3.9-5) L 09/19/20 06:10 Albumin/Globulin Ratio 1.1 % 09/19/20 06:10 Triglycerides 156 mg/dL (2-149) H 09/21/20 00:46 Cholesterol 139 mg/dL (50-199) 09/21/20 00:46 LDL Cholesterol Direct 85 mg/dL (50-130) 09/21/20 00:46 HDL Cholesterol 22 mg/dL (40-59) L 09/21/20 00:46 Cholesterol/HDL Ratio 6.31 % 09/21/20 00:46 Procalcitonin 0.05 ng/mL (<0.15) 09/17/20 04:59 TSH 34.670 mlU/mL (0.270-4.200) H 09/15/20 18:46 Free T4 0.10 ng/dL (0.76-1.46) L 09/15/20 19:43 Arterial Blood Glucose 155 mg/dL (65-95) H 09/22/20 04:15 Arterial Blood Ionized Calcium 4.3 mg/dL (4.6-5.3) L 09/22/20 04:15 Urine Color Yellow (Yellow) 09/15/20 Unknown Urine Turbidity Cloudy (Clear) 09/15/20 Unknown Urine pH 7.0 (5.0-7.0) 09/15/20 Unknown Ur Specific [place] 1.017 (1.003-1.030) 09/15/20 Unknown Urine Protein 100 mg/dl mg/dL (Negative) 09/15/20 Unknown Urine Glucose (UA) >=500 mg/dL (Negative) 09/15/20 Unknown Urine Ketones 20 mg/dL (Negative) 09/15/20 Unknown Urine Blood Lg (Negative) 09/15/20 Unknown Urine Nitrite Neg (Negative) 09/15/20 Unknown Urine Bilirubin Neg (Negative) 09/15/20 Unknown Urine Urobilinogen < 2.0 mg/dL (<2.0) 09/15/20 Unknown Ur Leukocyte Esterase Lg (Negative) 09/15/20 Unknown Urine WBC (Auto) > 182.0 /HPF (0.0-6.0) H 09/15/20 Unknown Urine RBC (Auto) 92.0 /HPF (0.0-6.0) 09/15/20 Unknown U Epithel Cells (Auto) 4.0 /HPF (0-13.0) 09/15/20 Unknown Urine Bacteria (Auto) 3+ /HPF (Negative) 09/15/20 Unknown Urine WBC Clumps 2+ /HPF 09/15/20 Unknown Urine Yeast (Budding) 3+ /HPF 09/15/20 Unknown Salicylates < 0.3 mg/dL (2.8-20.0) L 09/15/20 18:46 Urine Opiates Screen Presumptive negative 09/15/20 Unknown Urine Methadone Screen Presumptive negative 09/15/20 Unknown Acetaminophen 5.0 ug/mL (10.0-30.0) L 09/16/20 21:38 Ur Barbiturates Screen Presumptive negative 09/15/20 Unknown Ur Phencyclidine Scrn Presumptive negative 09/15/20 Unknown Ur Amphetamines Screen Presumptive negative 09/15/20 Unknown U Benzodiazepines Scrn Presumptive negative 09/15/20 Unknown Urine Cocaine Screen Presumptive negative 09/15/20 Unknown U Marijuana (THC) Screen Presumptive negative 09/15/20 Unknown Drugs of Abuse Note Disclamer 09/15/20 Unknown Plasma/Serum Alcohol < 0.01 % (0-0.07) 09/15/20 18:46 Coronavirus (PCR) Positive (Negative) A 09/16/20 08:00 Laura/IV: Voiding Method Indwelling Catheter Active Medications - Current Medications Current Medications: Generic Name Dose Route Start Last Admin Trade Name Freq PRN Reason Stop Dose Admin Albuterol 2.5 mg 09/20/20 12:28 Albuterol 2.5 Mg/3 Ml Nebu IH Q4HRT PRN Shortness Of Breath Lipase/Protease/Amylase 1 each 09/22/20 08:06 Lipase 10,500/Protease 25,000/Amylase 43,750 (Units) Dr Young FEEDTUBE PRN PRN For Clogged Feeding Tube Ascorbic Acid 500 mg 09/22/20 22:00 Ascorbic Acid 500 Mg Tab PO BID AMANDA Aspirin 162 mg 09/21/20 15:00 09/22/20 10:19 Aspirin 81 Mg Tab Chew PO 162 mg QDAY AMANDA Administration Cholecalciferol 5,000 unit 09/23/20 10:00 Cholecalciferol (Vit D3) 5,000 Unit Tab PO DAILY AMANDA Clopidogrel Bisulfate 75 mg 09/22/20 10:00 09/22/20 10:19 Clopidogrel 75 Mg Tab PO 75 mg QDAY AMANDA Administration Dexamethasone 6 mg 09/16/20 10:00 09/22/20 10:18 Dexamethasone 4 Mg/Ml Vial IV 09/24/20 10:01 6 mg Q24HR AMANDA Administration Dextrose 50 ml 09/16/20 21:24 Dextrose 50% In Water (25gm) 50 Ml Syringe IV Q30MIN PRN Hypoglycemia Protocol Famotidine 20 mg 09/22/20 10:00 09/22/20 10:19 Famotidine 20 Mg Tab PO 20 mg BID AMANDA Administration Fentanyl 50 mcg 09/20/20 19:02 Fentanyl 100 Mcg/2 Ml Inj IV Q10MIN PRN ANALGESIA Heparin Sodium (Porcine) 3,100 unit 09/21/20 01:42 Heparin 10,000 Units/10 Ml Vial 40 unit/kg (3100 unit) IV Q6H PRN Anti-Xa Assay < 0.1 units/ml Hydrophilic Ointment 1 applic 09/20/20 19:02 Lip Therapy Vaseline TP Q2HR PRN Dry Lips Fentanyl Citrate 2,000 mcg in 100 mls @ 3.925 mls/hr 09/20/20 20:00 09/22/20 13:57 Fentanyl Drip Premix IV 1 mcg/kg/hr TITR AMANDA 3.925 mls/hr Administration Protocol 1 MCG/KG/HR Heparin Sodium/Sodium Chloride 25,000 unit in 500 mls @ 20 mls/hr 09/21/20 02:00 09/22/20 12:08 Heparin/ 0.45% Nacl-25,000 Unit/500 Ml IV 400 units/hr TITRATE AMANDA 8 mls/hr Titration Protocol 1,000 UNITS/HR TOCILIZUMAB 600 mg/ Sodium 130 mls @ 120 mls/hr 09/21/20 14:23 Chloride IV 09/21/20 15:27 ONCE ONE Insulin Human Regular 0 units 09/16/20 07:30 09/22/20 18:48 Insulin Regular, Human 100 Units/1 Ml SUB-Q 4 units ACHS AMANDA Administration Protocol Levothyroxine Sodium 125 mcg 09/18/20 06:00 09/22/20 06:08 Levothyroxine 125 Mcg Tab PO 125 mcg DAILY@0600 AMANDA Administration Magnesium Hydroxide 30 ml 09/15/20 22:09 Magnesium Hydroxide (Mom) Oral Liqd Udc PO Q4H PRN Constipation Metoprolol Tartrate 2.5 mg 09/21/20 15:00 09/22/20 13:15 Metoprolol Tartrate 5 Mg/5 Ml Inj IV 2.5 mg Q8HR AMANDA Administration Multi-Ingred Cream/Lotion/Oil/Oint 1 applic 09/20/20 19:02 Mineral Oil/Petrolatum, White Ophth Oint 3.5 Gm OU Q4HR PRN Dry Eye(s) Naloxone HCl 0.1 mg 09/15/20 18:36 Naloxone 0.4 Mg/1 Ml Inj IV Q2MIN PRN Res Rate </= 8 or 02 SAT < 92% Nitroglycerin 0.5 inch 09/22/20 06:00 09/22/20 13:17 Nitroglycerin 2% Oint 1 Gm TP 0.5 inch BIDNTG AMANDA Administration Protocol Ondansetron HCl 4 mg 09/15/20 22:09 Ondansetron 4 Mg/2 Ml Inj IV Q8H PRN Nausea And Vomiting Sertraline HCl 25 mg 09/17/20 12:00 09/22/20 10:19 Sertraline 25 Mg Tab PO 25 mg QDAY AMANDA Administration Simple Syrup 15 ml 09/22/20 08:06 Simple Syrup 15 Ml FEEDTUBE PRN PRN Hypoglycemia Simple Syrup 30 ml 09/22/20 08:06 Simple Syrup 15 Ml FEEDTUBE PRN PRN Hypoglycemia Sodium Bicarbonate 325 mg 09/22/20 08:06 Sodium Bicarbonate 325 Mg Tab FEEDTUBE PRN PRN For Clogged Feeding Tube Sodium Chloride 10 ml 09/16/20 10:00 09/22/20 10:20 Sodium Chloride 0.9% 10 Ml Flush Syringe IV 10 ml BID AMANDA Administration Sodium Chloride 10 ml 09/15/20 22:09 Sodium Chloride 0.9% 10 Ml Flush Syringe IV PRN PRN LINE FLUSH Zinc Sulfate 220 mg 09/22/20 22:00 Zinc Sulfate 220 Mg Cap PO BID AMANDA Nutrition/Malnutrition Assess - Dietary Evaluation Nutrition/Malnutrition Findings: Nutrition Notes Start: 09/16/20 15:13 Freq: Status: Active Protocol: Document 09/22/20 08:00 (Rec: 09/22/20 08:06 [email or web address]) Nutrition Notes Need for Assessment generated from: MD Order Initial or Follow up Reassessment Current Diagnosis Diabetes,Hypertension, Respiratory Failure Other Pertinent Diagnosis pneu, drug OD, COVID-19 Current Diet No diet Labs/Tests POC BG 297-153 Pertinent Medications Insulin Decadron Height 5 ft 6 in Weight 78.5 kg [place] Body Weight (kg) 59.09 BMI 27.9 Weight Status Appropriate Subjective/Other Information MD consult for TF. Pt was intubated yesterday. Burn Absent Trauma Absent Minimum of two criteria No physical signs of malnutrition #1 Nutrition Diagnosis Inadequate oral intake Etiology ARF As Evidenced by Signs and Symptoms pt on vent and unable to consume PO Diagnosis Progress(for reassessment Continues documentation) Is patient on ventilator? Yes Is Patient Ambulatory and/or Out of Bed Yes REE-([place] Oneil-ambulatory/OOB) [ 1809.275 [id number]] Calculation Used for Recommendations Brando Oneil Additional Notes Protein: (1.2-2g/kg) 94-157g Fluid: 1 ml/kcal Nutrition Intervention Change Diet Order: Start TF Nutrition Support: Vital AF 1.2 at 60 ml/hr Flush 75 ml q4h or per MD Kcal 1,728 Protein (gm) 108 Fluid (mL) 1,168 Add Supplement/Snack (indicate name/kcal D/C /protein ) Goal #1 Meet at least 75% of energy and protein needs via TF Anticipated Discharge Needs: Unable to determine at this time Follow-Up By: 09/24/20 Additional Comments F/u: TF start/tolerance <NOAH JIMENEZ - Last Filed: 09/22/20 19:26> History Interval history: I seen and examined the patient at the bedside this morning in ICU Isolation precautions, PPE protocols strictly followed per Covid 19 guidelines Patient remains intubated on ventilatory support, critically ill, non-ST elevation FL on heparin drip cardiology following We will continue current management, mental health consultant recommendations noted and appreciated I also reviewed and agree with the nurse practitioners documentation with few additions Plan of care reviewed with the patient's nurse, will try to contact family tomorrow and update patient's condition Hospitalist Physical - Constitutional Vitals: Temp Pulse Resp BP Pulse Ox 98.4 F 72 17 105/60 92 09/22/20 16:00 09/22/20 19:00 09/22/20 19:00 09/22/20 19:00 09/22/20 19:00 HEART Score - HEART Score Troponin: Troponin T 0.501 ng/mL (0.00-0.029) H* D 09/22/20 10:22 Results - Labs CBC & Chem 7: 09/21/20 02:14 09/21/20 00:46 Labs: Laboratory Last Values WBC 10.4 K/mm3 (4.5-11.0) 09/16/20 04:47 RBC 4.53 M/mm3 (3.65-5.03) 09/16/20 04:47 Hgb 13.5 gm/dl (10.1-14.3) 09/21/20 02:14 Hct 38.8 % (30.3-42.9) 09/21/20 02:14 MCV 91 fl (79-97) 09/16/20 04:47 MCH 33 pg (28-32) H 09/16/20 04:47 MCHC 36 % (30-34) H 09/16/20 04:47 RDW 14.2 % (13.2-15.2) 09/16/20 04:47 Plt Count 176 K/mm3 (140-440) 09/21/20 02:14 Lymph % (Auto) 7.3 % (13.4-35.0) L 09/16/20 04:47 [place] % (Auto) 6.6 % (0.0-7.3) 09/16/20 04:47 Eos % (Auto) 0.0 % (0.0-4.3) 09/16/20 04:47 Baso % (Auto) 0.4 % (0.0-1.8) 09/16/20 04:47 Lymph # (Auto) 0.8 K/mm3 (1.2-5.4) L 09/16/20 04:47 [place] # (Auto) 0.7 K/mm3 (0.0-0.8) 09/16/20 04:47 Eos # (Auto) 0.0 K/mm3 (0.0-0.4) 09/16/20 04:47 Baso # (Auto) 0.0 K/mm3 (0.0-0.1) 09/16/20 04:47 Seg Neutrophils % 85.7 % (40.0-70.0) H 09/16/20 04:47 Seg Neutrophils # 8.9 K/mm3 (1.8-7.7) H 09/16/20 04:47 PT 20.0 Sec. (12.2-14.9) H 09/21/20 02:14 INR 1.65 (0.87-1.13) H 09/21/20 02:14 APTT 38.2 Sec. (24.2-36.6) H 09/21/20 02:14 D-Dimer 4940.20 ng/mlDDU (0-234) H 09/20/20 05:23 Heparin Anti-Xa Level 0.15 U.I./ml (0.3-0.7) L 09/22/20 17:44 ABG pH 7.350 (7.320-7.450) 09/22/20 04:15 POC ABG pCO2 33.4 mmHg (32.0-48.0) 09/22/20 04:15 POC ABG pO2 87.2 mmHg (83-108) 09/22/20 04:15 POC ABG HCO3 18.0 09/22/20 04:15 ABG O2 Saturation 96.9 (0-100) 09/22/20 04:15 POC ABG Base Excess -6.6 09/22/20 04:15 ABG Hemoglobin 14.1 (12.0-17.5) 09/22/20 04:15 ABG Oxyhemoglobin 95.9 (94-98) 09/22/20 04:15 ABG Methemoglobin 0.3 (0.0-1.5) 09/22/20 04:15 ABG Sodium 132.9 mmol/L (136.0-145.0) L 09/22/20 04:15 ABG Potassium 4.3 mmol/L (3.40-4.50) 09/22/20 04:15 ABG Chloride 106.0 mmol/L (98-107) 09/22/20 04:15 ABG Glucose 155 mg/dL (65-95) H 09/22/20 04:15 VBG pH 7.368 (7.320-7.420) 09/15/20 18:46 Carboxyhemoglobin 0.7 (0.5-1.5) 09/22/20 04:15 FiO2 % 100.0 09/22/20 04:15 Sodium 134 mmol/L (137-145) L 09/21/20 00:46 Potassium 3.9 mmol/L (3.6-5.0) 09/21/20 00:46 Chloride 103.7 mmol/L (98-107) 09/21/20 00:46 Carbon Dioxide 18 mmol/L (22-30) L 09/21/20 00:46 Anion Gap 16 mmol/L 09/21/20 00:46 BUN 23 mg/dL (7-17) H 09/21/20 00:46 Creatinine 0.9 mg/dL (0.6-1.2) D 09/21/20 00:46 Estimated GFR > 60 ml/min 09/21/20 00:46 BUN/Creatinine Ratio 26 % 09/21/20 00:46 Glucose 198 mg/dL (65-100) H 09/21/20 00:46 POC Glucose 273 mg/dL (70-105) H 09/22/20 16:35 Lactic Acid 1.80 mmol/L (0.7-2.0) 09/17/20 04:59 Calcium 6.7 mg/dL (8.4-10.2) L D 09/21/20 00:46 Magnesium 1.70 mg/dL (1.7-2.3) 09/21/20 00:46 Ferritin 738.9 ng/mL (10.0-200.0) H 09/20/20 05:23 Total Bilirubin 0.80 mg/dL (0.1-1.2) 09/19/20 06:10 AST 45 units/L (5-40) H 09/19/20 06:10 ALT 35 units/L (7-56) 09/19/20 06:10 Alkaline Phosphatase 108 units/L (35-129) 09/19/20 06:10 Ammonia 23.0 umol/L (25-60) L 09/15/20 18:46 Lactate Dehydrogenase 882 units/L (91-180) H 09/20/20 05:23 Total Creatine Kinase 1159 units/L (30-135) H 09/22/20 10:22 CK-MB (CK-2) 14.4 ng/mL (0.0-4.0) H 09/22/20 10:22 CK-MB (CK-2) Rel Index 1.2 (0-4) 09/22/20 10:22 Troponin T 0.501 ng/mL (0.00-0.029) H* D 09/22/20 10:22 C-Reactive Protein 8.40 mg/dL (0.00-1.30) H 09/21/20 15:16 Total Protein 6.6 g/dL (6.3-8.2) 09/19/20 06:10 Albumin 3.5 g/dL (3.9-5) L 09/19/20 06:10 Albumin/Globulin Ratio 1.1 % 09/19/20 06:10 Triglycerides 156 mg/dL (2-149) H 09/21/20 00:46 Cholesterol 139 mg/dL (50-199) 09/21/20 00:46 LDL Cholesterol Direct 85 mg/dL (50-130) 09/21/20 00:46 HDL Cholesterol 22 mg/dL (40-59) L 09/21/20 00:46 Cholesterol/HDL Ratio 6.31 % 09/21/20 00:46 Procalcitonin 0.05 ng/mL (<0.15) 09/17/20 04:59 TSH 34.670 mlU/mL (0.270-4.200) H 09/15/20 18:46 Free T4 0.10 ng/dL (0.76-1.46) L 09/15/20 19:43 Arterial Blood Glucose 155 mg/dL (65-95) H 09/22/20 04:15 Arterial Blood Ionized Calcium 4.3 mg/dL (4.6-5.3) L 09/22/20 04:15 Urine Color Yellow (Yellow) 09/15/20 Unknown Urine Turbidity Cloudy (Clear) 09/15/20 Unknown Urine pH 7.0 (5.0-7.0) 09/15/20 Unknown Ur Specific [place] 1.017 (1.003-1.030) 09/15/20 Unknown Urine Protein 100 mg/dl mg/dL (Negative) 09/15/20 Unknown Urine Glucose (UA) >=500 mg/dL (Negative) 09/15/20 Unknown Urine Ketones 20 mg/dL (Negative) 09/15/20 Unknown Urine Blood Lg (Negative) 09/15/20 Unknown Urine Nitrite Neg (Negative) 09/15/20 Unknown Urine Bilirubin Neg (Negative) 09/15/20 Unknown Urine Urobilinogen < 2.0 mg/dL (<2.0) 09/15/20 Unknown Ur Leukocyte Esterase Lg (Negative) 09/15/20 Unknown Urine WBC (Auto) > 182.0 /HPF (0.0-6.0) H 09/15/20 Unknown Urine RBC (Auto) 92.0 /HPF (0.0-6.0) 09/15/20 Unknown U Epithel Cells (Auto) 4.0 /HPF (0-13.0) 09/15/20 Unknown Urine Bacteria (Auto) 3+ /HPF (Negative) 09/15/20 Unknown Urine WBC Clumps 2+ /HPF 09/15/20 Unknown Urine Yeast (Budding) 3+ /HPF 09/15/20 Unknown Salicylates < 0.3 mg/dL (2.8-20.0) L 09/15/20 18:46 Urine Opiates Screen Presumptive negative 09/15/20 Unknown Urine Methadone Screen Presumptive negative 09/15/20 Unknown Acetaminophen 5.0 ug/mL (10.0-30.0) L 09/16/20 21:38 Ur Barbiturates Screen Presumptive negative 09/15/20 Unknown Ur Phencyclidine Scrn Presumptive negative 09/15/20 Unknown Ur Amphetamines Screen Presumptive negative 09/15/20 Unknown U Benzodiazepines Scrn Presumptive negative 09/15/20 Unknown Urine Cocaine Screen Presumptive negative 09/15/20 Unknown U Marijuana (THC) Screen Presumptive negative 09/15/20 Unknown Drugs of Abuse Note Disclamer 09/15/20 Unknown Plasma/Serum Alcohol < 0.01 % (0-0.07) 09/15/20 18:46 Coronavirus (PCR) Positive (Negative) A 09/16/20 08:00 Laura/IV: Voiding Method Indwelling Catheter Active Medications - Current Medications Current Medications: Generic Name Dose Route Start Last Admin Trade Name Freq PRN Reason Stop Dose Admin Albuterol 2.5 mg 09/20/20 12:28 Albuterol 2.5 Mg/3 Ml Nebu IH Q4HRT PRN Shortness Of Breath Lipase/Protease/Amylase 1 each 09/22/20 08:06 Lipase 10,500/Protease 25,000/Amylase 43,750 (Units) Dr Young FEEDTUBE PRN PRN For Clogged Feeding Tube Ascorbic Acid 500 mg 09/22/20 22:00 Ascorbic Acid 500 Mg Tab PO BID AMANDA Aspirin 162 mg 09/21/20 15:00 09/22/20 10:19 Aspirin 81 Mg Tab Chew PO 162 mg QDAY AMANDA Administration Cholecalciferol 5,000 unit 09/23/20 10:00 Cholecalciferol (Vit D3) 5,000 Unit Tab PO DAILY AMANDA Clopidogrel Bisulfate 75 mg 09/22/20 10:00 09/22/20 10:19 Clopidogrel 75 Mg Tab PO 75 mg QDAY AMANDA Administration Dexamethasone 6 mg 09/16/20 10:00 09/22/20 10:18 Dexamethasone 4 Mg/Ml Vial IV 09/24/20 10:01 6 mg Q24HR AMANDA Administration Dextrose 50 ml 09/16/20 21:24 Dextrose 50% In Water (25gm) 50 Ml Syringe IV Q30MIN PRN Hypoglycemia Protocol Famotidine 20 mg 09/22/20 10:00 09/22/20 10:19 Famotidine 20 Mg Tab PO 20 mg BID AMANDA Administration Fentanyl 50 mcg 09/20/20 19:02 Fentanyl 100 Mcg/2 Ml Inj IV Q10MIN PRN ANALGESIA Heparin Sodium (Porcine) 3,100 unit 09/21/20 01:42 Heparin 10,000 Units/10 Ml Vial 40 unit/kg (3100 unit) IV Q6H PRN Anti-Xa Assay < 0.1 units/ml Hydrophilic Ointment 1 applic 09/20/20 19:02 Lip Therapy Vaseline TP Q2HR PRN Dry Lips Fentanyl Citrate 2,000 mcg in 100 mls @ 3.925 mls/hr 09/20/20 20:00 09/22/20 13:57 Fentanyl Drip Premix IV 1 mcg/kg/hr TITR AMANDA 3.925 mls/hr Administration Protocol 1 MCG/KG/HR Heparin Sodium/Sodium Chloride 25,000 unit in 500 mls @ 20 mls/hr 09/21/20 02:00 09/22/20 12:08 Heparin/ 0.45% Nacl-25,000 Unit/500 Ml IV 400 units/hr TITRATE AMANDA 8 mls/hr Titration Protocol 1,000 UNITS/HR TOCILIZUMAB 600 mg/ Sodium 130 mls @ 120 mls/hr 09/21/20 14:23 Chloride IV 09/21/20 15:27 ONCE ONE Insulin Human Regular 0 units 09/16/20 07:30 09/22/20 18:48 Insulin Regular, Human 100 Units/1 Ml SUB-Q 4 units ACHS AMANDA Administration Protocol Levothyroxine Sodium 125 mcg 09/18/20 06:00 09/22/20 06:08 Levothyroxine 125 Mcg Tab PO 125 mcg DAILY@0600 AMANDA Administration Magnesium Hydroxide 30 ml 09/15/20 22:09 Magnesium Hydroxide (Mom) Oral Liqd Udc PO Q4H PRN Constipation Metoprolol Tartrate 2.5 mg 09/21/20 15:00 09/22/20 13:15 Metoprolol Tartrate 5 Mg/5 Ml Inj IV 2.5 mg Q8HR AMANDA Administration Multi-Ingred Cream/Lotion/Oil/Oint 1 applic 09/20/20 19:02 Mineral Oil/Petrolatum, White Ophth Oint 3.5 Gm OU Q4HR PRN Dry Eye(s) Naloxone HCl 0.1 mg 09/15/20 18:36 Naloxone 0.4 Mg/1 Ml Inj IV Q2MIN PRN Res Rate </= 8 or 02 SAT < 92% Nitroglycerin 0.5 inch 09/22/20 06:00 09/22/20 13:17 Nitroglycerin 2% Oint 1 Gm TP 0.5 inch BIDNTG AMANDA Administration Protocol Ondansetron HCl 4 mg 09/15/20 22:09 Ondansetron 4 Mg/2 Ml Inj IV Q8H PRN Nausea And Vomiting Sertraline HCl 25 mg 09/17/20 12:00 09/22/20 10:19 Sertraline 25 Mg Tab PO 25 mg QDAY AMANDA Administration Simple Syrup 15 ml 09/22/20 08:06 Simple Syrup 15 Ml FEEDTUBE PRN PRN Hypoglycemia Simple Syrup 30 ml 09/22/20 08:06 Simple Syrup 15 Ml FEEDTUBE PRN PRN Hypoglycemia Sodium Bicarbonate 325 mg 09/22/20 08:06 Sodium Bicarbonate 325 Mg Tab FEEDTUBE PRN PRN For Clogged Feeding Tube Sodium Chloride 10 ml 09/16/20 10:00 09/22/20 10:20 Sodium Chloride 0.9% 10 Ml Flush Syringe IV 10 ml BID AMANDA Administration Sodium Chloride 10 ml 09/15/20 22:09 Sodium Chloride 0.9% 10 Ml Flush Syringe IV PRN PRN LINE FLUSH Zinc Sulfate 220 mg 09/22/20 22:00 Zinc Sulfate 220 Mg Cap PO BID AMANDA Nutrition/Malnutrition Assess - Dietary Evaluation Nutrition/Malnutrition Findings: Nutrition Notes Start: 09/16/20 15:13 Freq: Status: Active Protocol: Document 09/22/20 08:00 RHEA (Rec: 09/22/20 08:06 RHEA [id number]) Nutrition Notes Need for Assessment generated from: MD Order Initial or Follow up Reassessment Current Diagnosis Diabetes,Hypertension, Respiratory Failure Other Pertinent Diagnosis pneu, drug OD, COVID-19 Current Diet No diet Labs/Tests POC BG 297-153 Pertinent Medications Insulin Decadron Height 5 ft 6 in Weight 78.5 kg [place] Body Weight (kg) 59.09 BMI 27.9 Weight Status Appropriate Subjective/Other Information MD consult for TF. Pt was intubated yesterday. Burn Absent Trauma Absent Minimum of two criteria No physical signs of malnutrition #1 Nutrition Diagnosis Inadequate oral intake Etiology ARF As Evidenced by Signs and Symptoms pt on vent and unable to consume PO Diagnosis Progress(for reassessment Continues documentation) Is patient on ventilator? Yes Is Patient Ambulatory and/or Out of Bed Yes REE-([facility]. [facility]-ambulatory/OOB) [ [id number] [id number]] Calculation Used for Recommendations [facility] Additional Notes Protein: (1.2-2g/kg) 94-157g Fluid: 1 ml/kcal Nutrition Intervention Change Diet Order: Start TF Nutrition Support: Vital AF 1.2 at 60 ml/hr Flush 75 ml q4h or per MD Kcal 1,728 Protein (gm) 108 Fluid (mL) 1,168 Add Supplement/Snack (indicate name/kcal D/C /protein ) Goal #1 Meet at least 75% of energy and protein needs via TF Anticipated Discharge Needs: Unable to determine at this time Follow-Up By: 09/24/20 Additional Comments F/u: TF start/tolerance
[2020-09-22] MEDS: ZINC SULFATE 220 MG CAP PO SCH (22:12)
[2020-09-22] MEDS: ASCORBIC ACID 500 MG TAB PO SCH (22:12)
[2020-09-23] MEDS: INSULIN REGULAR, HUMAN 100 UNITS/1 ML SUB-Q SCH ×4 (01:29→18:36)
--- NOTE | 2020-09-23 04:49 | XRay Report ---
CHEST - 1 VIEW INDICATION: follow up respiratory failure COMPARISON: Yesterday FINDINGS: SUPPORT DEVICES: Stable support device positioning. HEART: Stable cardiomediastinal silhouette. LUNGS/PLEURA: Stable patchy multifocal airspace disease. ADDITIONAL FINDINGS: None. IMPRESSION: Unchanged exam. Signer Name: Dale Naranjo MD Signed: 09/23/2020 4:45 AM Workstation Name: [id number]
[2020-09-23 10:36] LABS: Hematocrit 40.3 % (30.3-42.9); Hemoglobin 13.6 gm/dl (10.1-14.3); Mean Corpuscular HGB Conc 34 % (30-34); Mean Corpuscular Volume 93 fl (79-97); Platelet Count 235 K/mm3 (140-440); Red Blood Count 4.32 M/mm3 (3.65-5.03); Red Cell Distribution Width 15.2 % (13.2-15.2)
[2020-09-23] MEDS: dexAMETHasone 4 MG/ML VIAL IV SCH (10:58)
[2020-09-23] MEDS: CHOLECALCIFEROL (VIT D3) 5,000 UNIT TAB PO SCH (10:58)
[2020-09-23] MEDS: ASCORBIC ACID 500 MG TAB PO SCH (10:59)
[2020-09-23] MEDS: CLOPIDOGREL 75 MG TAB PO SCH (10:59)
[2020-09-23] MEDS: FAMOTIDINE 20 MG TAB PO SCH ×2 (10:59→22:21)
[2020-09-23] MEDS: ASPIRIN 81 MG TAB CHEW PO SCH (10:59)
[2020-09-23] MEDS: LEVOTHYROXINE 125 MCG TAB PO SCH (10:59)
[2020-09-23] MEDS: NITROGLYCERIN 2% OINT 1 GM TP SCH ×2 (10:59→13:27)
[2020-09-23 11:00] LABS: Blood Urea Nitrogen 26 mg/dL (7-17); Calcium 8.2 mg/dL (8.4-10.2); Hemolysis Index 14
[2020-09-23] MEDS: METOPROLOL TARTRATE 5 MG/5 ML INJ IV SCH ×3 (11:00→22:21)
[2020-09-23] MEDS: SERTRALINE 25 MG TAB PO SCH (11:01)
[2020-09-23 11:02] LABS: BUN/Creatinine Ratio 37
[2020-09-23] MEDS: ZINC SULFATE 220 MG CAP PO SCH ×2 (11:09→22:27)
--- NOTE | 2020-09-23 12:20 | Progress Note ---
Assessment and Plan Patient admitted with respiratory failure due to Covid pneumonia, with worsening, bilateral dense infiltrates of acute bilateral pneumonia on chest x- ray. Currently unresponsive, on the vent in the ICU on supportive management. Clinical course complicated by the development of an acute non-ST elevation myocardial infarction evident on the ECG and elevated troponin. Recommendations: The patient is not a candidate for aggressive and invasive cardiac therapies, in the setting of respiratory failure due to severe viral pneumonia and sepsis. Continue aggressive medical therapy including heparin drip, topical nitrates, beta-blockers, aspirin and Plavix. Echocardiogram is pending for left ventricular function assessment. Prognosis is poor in the setting of severe respiratory failure due to severe viral pneumonia and intercurrent acute non-ST elevation infarct. Subjective Date of service: 09/23/20 Principal diagnosis: Ac encephalopathy; CAP; Sepsis; COVID-19 infxn; Ac hypoxemic resp failure Interval history: Patient is unresponsive, on the vent heart rate is 78, sinus rhythm. Blood pressure 119 systolic. Objective Vital Signs Temp Pulse Resp BP Pulse Ox 09/23/20 11:15 76 17 111/60 94 09/23/20 11:00 76 17 111/60 92 09/23/20 10:45 86 17 119/56 88 09/23/20 10:30 80 17 119/56 92 09/23/20 10:15 78 18 112/57 92 09/23/20 10:00 79 18 112/57 92 09/23/20 09:45 78 17 116/55 93 09/23/20 09:30 78 18 116/55 92 09/23/20 09:15 76 18 118/56 91 09/23/20 09:00 75 18 118/56 93 09/23/20 08:45 73 18 115/59 92 09/23/20 08:30 74 18 115/59 93 09/23/20 08:15 74 18 115/58 92 09/23/20 08:00 98.0 F 73 18 115/58 92 09/23/20 07:45 73 18 110/56 93 09/23/20 07:30 73 18 110/56 90 09/23/20 07:15 70 17 115/53 92 09/23/20 07:00 71 17 115/53 88 09/23/20 06:45 69 18 109/53 94 09/23/20 06:30 71 18 109/53 88 09/23/20 06:15 74 17 124/59 94 09/23/20 06:00 77 18 124/59 90 09/23/20 05:45 74 17 107/54 92 09/23/20 05:30 73 18 117/60 93 09/23/20 05:15 72 17 107/54 92 09/23/20 05:00 73 17 107/54 91 09/23/20 04:46 71 103/53 94 09/23/20 04:45 74 17 103/53 92 09/23/20 04:30 71 18 103/53 94 09/23/20 04:15 70 18 99/52 95 09/23/20 04:00 71 18 99/52 96 09/23/20 03:50 98.9 F 09/23/20 03:45 71 18 112/58 95 09/23/20 03:30 78 17 118/63 09/23/20 03:15 72 18 112/58 95 09/23/20 03:00 70 18 112/58 91 09/23/20 02:54 95 09/23/20 02:45 72 18 120/64 90 09/23/20 02:31 78 16 127/66 88 09/23/20 02:15 75 18 120/64 92 09/23/20 02:00 70 18 120/64 89 09/23/20 01:45 72 18 118/66 93 09/23/20 01:30 72 18 118/66 89 09/23/20 01:15 71 18 114/62 91 09/23/20 01:00 69 17 115/62 90 09/23/20 00:45 72 18 108/63 91 09/23/20 00:30 71 18 114/62 93 09/23/20 00:15 71 18 108/63 93 09/23/20 00:00 97.8 F 71 18 108/63 91 09/22/20 23:45 68 18 111/62 92 09/22/20 23:30 69 19 111/62 90 09/22/20 23:15 68 18 112/65 93 09/22/20 23:00 70 18 112/65 88 09/22/20 22:45 70 17 120/67 91 09/22/20 22:30 72 18 120/67 88 09/22/20 22:15 76 19 112/59 91 09/22/20 22:11 80 112/59 09/22/20 22:00 76 18 112/59 93 09/22/20 21:45 76 18 111/60 91 09/22/20 21:30 75 17 111/60 91 09/22/20 21:15 75 18 109/63 93 09/22/20 21:00 74 15 114/60 90 09/22/20 20:45 76 18 109/63 92 09/22/20 20:30 75 18 109/63 09/22/20 20:23 75 104/57 95 09/22/20 20:15 72 18 94 09/22/20 20:00 77 18 104/57 94 09/22/20 19:46 73 17 114/61 93 09/22/20 19:36 98.2 F 09/22/20 19:30 74 17 114/61 90 09/22/20 19:16 74 17 105/60 95 09/22/20 19:00 72 17 105/60 92 09/22/20 18:46 73 18 100/56 91 09/22/20 18:30 73 18 100/56 94 09/22/20 18:16 72 18 104/58 95 09/22/20 18:00 73 18 104/58 95 09/22/20 17:46 75 18 107/56 93 09/22/20 17:30 74 17 107/56 93 09/22/20 17:16 77 17 133/73 94 09/22/20 17:00 86 17 133/73 92 09/22/20 16:46 84 16 97/46 97 09/22/20 16:30 86 14 97/46 94 09/22/20 16:17 85 94/52 97 09/22/20 16:16 86 17 94/52 97 09/22/20 16:00 98.4 F 82 14 94/52 94 09/22/20 15:46 84 17 98/46 95 09/22/20 15:30 83 18 98/46 91 09/22/20 15:16 82 17 104/53 95 09/22/20 15:00 86 16 104/53 88 09/22/20 14:46 80 16 90/52 96 09/22/20 14:30 79 16 90/52 95 09/22/20 14:16 85 16 117/71 97 09/22/20 14:00 99 H 13 117/71 96 09/22/20 13:46 98 H 12 131/76 97 09/22/20 13:30 106 H 11 L 131/76 95 09/22/20 13:16 115 H 14 141/81 96 09/22/20 13:00 120 H 14 141/81 95 09/22/20 12:46 105 H 13 132/75 98 09/22/20 12:30 107 H 11 L 132/75 93 - Physical Examination Narrative exam: Full physical exam is deferred due to the patient's acute COVID-19 positive status. General: Other (Unresponsive, on the vent) HEENT: Positive: Other (Pupils fixed) - Labs and Meds Cardiac Enzymes 09/23/20 Range/Units 10:03 Lactate Dehydrogenase 1592 H (91-180) units/L CBC 09/23/20 Range/Units 10:03 WBC 13.8 H (4.5-11.0) K/mm3 RBC 4.32 (3.65-5.03) M/mm3 Hgb 13.6 (10.1-14.3) gm/dl Hct 40.3 (30.3-42.9) % Plt Count 235 (140-440) K/mm3 Comprehensive Metabolic Panel 09/23/20 Range/Units 10:03 Sodium 141 D (137-145) mmol/L Potassium 4.2 (3.6-5.0) mmol/L Chloride 105.1 (98-107) mmol/L Carbon Dioxide 25 D (22-30) mmol/L BUN 26 H (7-17) mg/dL Creatinine 0.7 (0.6-1.2) mg/dL Glucose 271 H (65-100) mg/dL Calcium 8.2 L D (8.4-10.2) mg/dL - Allied health notes Allied health notes reviewed: nursing
--- NOTE | 2020-09-23 13:23 | Progress Note ---
Assessment and Plan Acute toxic metabolic encephalopathy Severe sepsis Community acquired pneumonia coronavirus-19 infection Acute hypoxemic respiratory failure Hyponatremia at presentation Diabetes, poorly controlled Lactic acidosis Urinary tract infection Tobacco use disorder - advance ETT 1 cm - increased peep to 16 cm H2O (P-plateau = 29 cm H2O) - reduced FiO2 to 90% - continue care as below otherwise; - continue Daily SAT and SBT assessment as tolerated - continue to wean supplemental oxygen for target O2 sat's > 92% acutely - VAP bundle addressed - continue lung protective strategies - continue bronchodilators with pulmonary hygiene per RT - wean per pulmonary driven protocols otherwise - continue accuchecks with glycemic control per SSI (While critically ill target blood glucose of 140-180 mg/dL; avoid hypoglycemia) - sedation prn for target RASS -1 to -2 - avoid nephrotoxins, renally dose all medications - continue to avoid benzodiazepine's, reduce the possibility of delirium - complete anti-infective's per ID rec's - prn analgesia per CPOT score - Maintenance of sleep-wake cycle, avoid delirium - continue enteral nutritional support at goal rate as tolerated - G.I. & VTE prophylaxis - PT/OT/ROM exercises - continue mobility protocols for pressure ulcer prophylaxis - Monitor hemodynamics closely - continue other care per attending / other consultants - discharge planning ongoing concurrently COVID SPECIFIC INTERVENTIONS - continue contact and airborne isolation - Remdesivir as per ID/Pulmonary developed protocols (ordered) - continue systemic steroids for severe COVID-19 infection - follow repeat COVID tests results - zinc and vitamin C supplementation - Monitor inflammatory markers per facility protocol - ferritin, D-dimer, CRP - therapeutic anticoagulation per system Protocol based on d-dimer and clinical considerations (not indicated) .... Re-evaluate in am & prn CONDITION: CRITICAL PROGNOSIS: GUARDED CODE STATUS: FULL CODE The high probability of a clinically significant, sudden or life-threatening deterioration of the [respiratory, cardiovascular & neurologic] system(s) required my full and direct attention, intervention and personal management. The aggregate critical care time was [32] minutes without overlap. Time includes spent on; [x] Data Review and interpretation [x] Patient assessment and monitoring of vital signs [x] Documentation [x] Medication orders and management Subjective Date of service: 09/23/20 Principal diagnosis: Ac encephalopathy; CAP; Sepsis; COVID-19 infxn; Ac hypoxemic resp failure Interval history: Patient is seen today for: Acute toxic metabolic encephalopathy; CAP; Severe sepsis; COVID-19 infection; Acute hypoxemic respiratory failure UTI; DM II Seen and examined at bedside; 24hour events reviewed; nursing and respiratory care staff consulted; no adverse overnight events reported to me; resting in bed; remains on MVS; FiO2 up to 95%; no emesis or overt aspiration; no gross bleeding Objective Vital Signs - 12hr 09/23/20 09/23/20 09/23/20 01:30 01:45 02:00 Temperature Pulse Rate 72 72 70 Respiratory 18 18 18 Rate Blood Pressure 118/66 118/66 120/64 O2 Sat by Pulse 89 93 89 Oximetry 09/23/20 09/23/20 09/23/20 02:15 02:31 02:45 Temperature Pulse Rate 75 78 72 Respiratory 18 16 18 Rate Blood Pressure 120/64 127/66 120/64 O2 Sat by Pulse 92 88 90 Oximetry 09/23/20 09/23/20 09/23/20 02:54 03:00 03:15 Temperature Pulse Rate 70 72 Respiratory 18 18 Rate Blood Pressure 112/58 112/58 O2 Sat by Pulse 95 91 95 Oximetry 09/23/20 09/23/20 09/23/20 03:30 03:45 03:50 Temperature 98.9 F Pulse Rate 78 71 Respiratory 17 18 Rate Blood Pressure 118/63 112/58 O2 Sat by Pulse 95 Oximetry 09/23/20 09/23/20 09/23/20 04:00 04:15 04:30 Temperature Pulse Rate 71 70 71 Respiratory 18 18 18 Rate Blood Pressure 99/52 99/52 103/53 O2 Sat by Pulse 96 95 94 Oximetry 09/23/20 09/23/20 09/23/20 04:45 04:46 05:00 Temperature Pulse Rate 74 71 73 Respiratory 17 17 Rate Blood Pressure 103/53 103/53 107/54 O2 Sat by Pulse 92 94 91 Oximetry 09/23/20 09/23/20 09/23/20 05:15 05:30 05:45 Temperature Pulse Rate 72 73 74 Respiratory 17 18 17 Rate Blood Pressure 107/54 117/60 107/54 O2 Sat by Pulse 92 93 92 Oximetry 09/23/20 09/23/20 09/23/20 06:00 06:15 06:30 Temperature Pulse Rate 77 74 71 Respiratory 18 17 18 Rate Blood Pressure 124/59 124/59 109/53 O2 Sat by Pulse 90 94 88 Oximetry 09/23/20 09/23/20 09/23/20 06:45 07:00 07:15 Temperature Pulse Rate 69 71 70 Respiratory 18 17 17 Rate Blood Pressure 109/53 115/53 115/53 O2 Sat by Pulse 94 88 92 Oximetry 09/23/20 09/23/20 09/23/20 07:30 07:45 08:00 Temperature 98.0 F Pulse Rate 73 73 73 Respiratory 18 18 18 Rate Blood Pressure 110/56 110/56 115/58 O2 Sat by Pulse 90 93 92 Oximetry 09/23/20 09/23/20 09/23/20 08:15 08:30 08:45 Temperature Pulse Rate 74 74 73 Respiratory 18 18 18 Rate Blood Pressure 115/58 115/59 115/59 O2 Sat by Pulse 92 93 92 Oximetry 09/23/20 09/23/20 09/23/20 09:00 09:15 09:30 Temperature Pulse Rate 75 76 78 Respiratory 18 18 18 Rate Blood Pressure 118/56 118/56 116/55 O2 Sat by Pulse 93 91 92 Oximetry 09/23/20 09/23/20 09/23/20 09:45 10:00 10:15 Temperature Pulse Rate 78 79 78 Respiratory 17 18 18 Rate Blood Pressure 116/55 112/57 112/57 O2 Sat by Pulse 93 92 92 Oximetry 09/23/20 09/23/20 09/23/20 10:30 10:45 11:00 Temperature Pulse Rate 80 86 76 Respiratory 17 17 17 Rate Blood Pressure 119/56 119/56 111/60 O2 Sat by Pulse 92 88 92 Oximetry 09/23/20 09/23/20 09/23/20 11:15 11:30 11:45 Temperature Pulse Rate 76 77 76 Respiratory 17 17 17 Rate Blood Pressure 111/60 116/65 116/65 O2 Sat by Pulse 94 94 93 Oximetry 09/23/20 09/23/20 09/23/20 12:00 12:15 12:30 Temperature Pulse Rate 76 75 79 Respiratory 18 17 18 Rate Blood Pressure 124/63 124/63 127/61 O2 Sat by Pulse 93 93 92 Oximetry 09/23/20 09/23/20 09/23/20 12:37 12:45 13:00 Temperature Pulse Rate 78 78 78 Respiratory 17 17 Rate Blood Pressure 127/61 127/61 125/59 O2 Sat by Pulse 93 92 93 Oximetry Constitutional: appears uncomfortable, other (middle aged female with mildly increased respiratory effort at rest on MVS) Eyes: non-icteric ENT: oropharynx moist, other (ETT 26 cm JOSHUA) Neck: supple, no lymphadenopathy Effort: mildly labored Ascultation: Bilateral: diminished breath sounds, rhonchi Percussion: Bilateral: not dull Cardiovascular: regular rate and rhythm Gastrointestinal: normoactive bowel sounds, soft, non-tender, non-distended (protuberant) Integumentary: normal Extremities: no cyanosis, no edema, pink and warm, pulses normal Neurologic: non-focal exam (grossly), pupils equal and round, motor strength normal and, unable to assess, other (sedated) Psychiatric: other (lethargic) CBC and BMP: 09/23/20 10:03 09/23/20 10:03 ABG, PT/INR, D-dimer: ABG ABG pH 7.328 (7.320-7.450) 09/23/20 04:00 POC ABG pCO2 45.2 mmHg (32.0-48.0) 09/23/20 04:00 POC ABG pO2 75.7 mmHg (83-108) L 09/23/20 04:00 POC ABG HCO3 23.2 09/23/20 04:00 ABG O2 Saturation 95.1 (0-100) 09/23/20 04:00 PT/INR, D-dimer PT 20.0 Sec. (12.2-14.9) H 09/21/20 02:14 INR 1.65 (0.87-1.13) H 09/21/20 02:14 D-Dimer 2573.89 ng/mlDDU (0-234) H 09/23/20 10:03 Abnormal lab findings: Abnormal Labs 09/15/20 09/15/20 09/15/20 18:46 18:46 18:46 WBC Hgb 14.4 H MCH MCHC Lymph % (Auto) Lymph # (Auto) Seg Neutrophils % Seg Neutrophils # PT INR APTT D-Dimer Heparin Anti-Xa Level ABG pH POC ABG pCO2 POC ABG pO2 ABG Oxyhemoglobin ABG Sodium ABG Potassium ABG Chloride ABG Glucose Sodium 128 L Potassium 3.2 L Chloride 89.3 L Carbon Dioxide BUN Creatinine Glucose 388 H POC Glucose Lactic Acid Calcium 8.2 L Ferritin AST 69 H Ammonia Lactate Dehydrogenase Total Creatine Kinase CK-MB (CK-2) Troponin T C-Reactive Protein Albumin 3.6 L Triglycerides HDL Cholesterol TSH 34.670 H Free T4 Arterial Blood Glucose Arterial Blood Ionized Calcium Urine WBC (Auto) Salicylates Acetaminophen Coronavirus (PCR) 09/15/20 09/15/20 09/15/20 18:46 18:46 18:46 WBC Hgb MCH MCHC Lymph % (Auto) Lymph # (Auto) Seg Neutrophils % Seg Neutrophils # PT INR APTT D-Dimer Heparin Anti-Xa Level ABG pH POC ABG pCO2 POC ABG pO2 ABG Oxyhemoglobin ABG Sodium ABG Potassium ABG Chloride ABG Glucose Sodium Potassium Chloride Carbon Dioxide BUN Creatinine Glucose POC Glucose Lactic Acid Calcium Ferritin AST Ammonia 23.0 L Lactate Dehydrogenase Total Creatine Kinase CK-MB (CK-2) Troponin T C-Reactive Protein Albumin Triglycerides HDL Cholesterol TSH Free T4 Arterial Blood Glucose Arterial Blood Ionized Calcium Urine WBC (Auto) Salicylates < 0.3 L Acetaminophen 9.1 L Coronavirus (PCR) 09/15/20 09/15/20 09/15/20 19:38 19:40 19:43 WBC Hgb MCH MCHC Lymph % (Auto) Lymph # (Auto) Seg Neutrophils % Seg Neutrophils # PT INR APTT D-Dimer Heparin Anti-Xa Level ABG pH POC ABG pCO2 POC ABG pO2 ABG Oxyhemoglobin ABG Sodium ABG Potassium ABG Chloride ABG Glucose Sodium Potassium Chloride Carbon Dioxide BUN Creatinine Glucose POC Glucose 398 H Lactic Acid 2.70 H* Calcium Ferritin AST Ammonia Lactate Dehydrogenase Total Creatine Kinase CK-MB (CK-2) Troponin T C-Reactive Protein Albumin Triglycerides HDL Cholesterol TSH Free T4 0.10 L Arterial Blood Glucose Arterial Blood Ionized Calcium Urine WBC (Auto) Salicylates Acetaminophen Coronavirus (PCR) 09/15/20 09/15/20 09/16/20 20:02 Unknown 04:47 WBC Hgb 14.8 H MCH 33 H MCHC 36 H Lymph % (Auto) 7.3 L Lymph # (Auto) 0.8 L Seg Neutrophils % 85.7 H Seg Neutrophils # 8.9 H PT INR APTT D-Dimer Heparin Anti-Xa Level ABG pH POC ABG pCO2 31.1 L POC ABG pO2 46.9 L ABG Oxyhemoglobin 82.8 L ABG Sodium 129.8 L ABG Potassium 3.1 L ABG Chloride ABG Glucose 374 H Sodium Potassium Chloride Carbon Dioxide BUN Creatinine Glucose POC Glucose Lactic Acid Calcium Ferritin AST Ammonia Lactate Dehydrogenase Total Creatine Kinase CK-MB (CK-2) Troponin T C-Reactive Protein Albumin Triglycerides HDL Cholesterol TSH Free T4 Arterial Blood Glucose 374 H Arterial Blood Ionized Calcium Urine WBC (Auto) > 182.0 H Salicylates Acetaminophen Coronavirus (PCR) 09/16/20 09/16/20 09/16/20 04:47 07:20 08:00 WBC Hgb MCH MCHC Lymph % (Auto) Lymph # (Auto) Seg Neutrophils % Seg Neutrophils # PT INR APTT D-Dimer Heparin Anti-Xa Level ABG pH POC ABG pCO2 POC ABG pO2 ABG Oxyhemoglobin ABG Sodium ABG Potassium ABG Chloride ABG Glucose Sodium 135 L D Potassium Chloride 94.1 L Carbon Dioxide BUN Creatinine Glucose 418 H POC Glucose 403 H Lactic Acid Calcium 8.3 L Ferritin AST Ammonia Lactate Dehydrogenase Total Creatine Kinase CK-MB (CK-2) Troponin T C-Reactive Protein Albumin Triglycerides HDL Cholesterol TSH Free T4 Arterial Blood Glucose Arterial Blood Ionized Calcium Urine WBC (Auto) Salicylates Acetaminophen Coronavirus (PCR) Positive A 09/16/20 09/16/20 09/16/20 11:43 16:17 21:38 WBC Hgb MCH MCHC Lymph % (Auto) Lymph # (Auto) Seg Neutrophils % Seg Neutrophils # PT INR APTT D-Dimer 702.65 H Heparin Anti-Xa Level ABG pH POC ABG pCO2 POC ABG pO2 ABG Oxyhemoglobin ABG Sodium ABG Potassium ABG Chloride ABG Glucose Sodium Potassium Chloride Carbon Dioxide BUN Creatinine Glucose POC Glucose 417 H 353 H Lactic Acid Calcium Ferritin AST Ammonia Lactate Dehydrogenase Total Creatine Kinase CK-MB (CK-2) Troponin T C-Reactive Protein Albumin Triglycerides HDL Cholesterol TSH Free T4 Arterial Blood Glucose Arterial Blood Ionized Calcium Urine WBC (Auto) Salicylates Acetaminophen Coronavirus (PCR) 09/16/20 09/16/20 09/16/20 21:38 21:38 21:38 WBC Hgb MCH MCHC Lymph % (Auto) Lymph # (Auto) Seg Neutrophils % Seg Neutrophils # PT INR APTT D-Dimer Heparin Anti-Xa Level ABG pH POC ABG pCO2 POC ABG pO2 ABG Oxyhemoglobin ABG Sodium ABG Potassium ABG Chloride ABG Glucose Sodium Potassium Chloride Carbon Dioxide BUN Creatinine Glucose POC Glucose Lactic Acid Calcium Ferritin 1089.0 H AST Ammonia Lactate Dehydrogenase 722 H Total Creatine Kinase CK-MB (CK-2) Troponin T C-Reactive Protein 6.80 H Albumin Triglycerides HDL Cholesterol TSH Free T4 Arterial Blood Glucose Arterial Blood Ionized Calcium Urine WBC (Auto) Salicylates Acetaminophen 5.0 L Coronavirus (PCR) 09/16/20 09/16/20 09/17/20 21:38 22:24 04:59 WBC Hgb MCH MCHC Lymph % (Auto) Lymph # (Auto) Seg Neutrophils % Seg Neutrophils # PT INR APTT D-Dimer Heparin Anti-Xa Level ABG pH POC ABG pCO2 POC ABG pO2 ABG Oxyhemoglobin ABG Sodium ABG Potassium ABG Chloride ABG Glucose Sodium 134 L 135 L Potassium 3.5 L 3.0 L Chloride 95.1 L 97.2 L Carbon Dioxide BUN Creatinine Glucose 288 H 149 H POC Glucose 307 H Lactic Acid Calcium 8.2 L Ferritin AST 43 H 49 H Ammonia Lactate Dehydrogenase Total Creatine Kinase CK-MB (CK-2) Troponin T C-Reactive Protein Albumin 3.7 L 3.3 L Triglycerides HDL Cholesterol TSH Free T4 Arterial Blood Glucose Arterial Blood Ionized Calcium Urine WBC (Auto) Salicylates Acetaminophen Coronavirus (PCR) 09/17/20 09/17/20 09/17/20 12:25 16:57 21:30 WBC Hgb MCH MCHC Lymph % (Auto) Lymph # (Auto) Seg Neutrophils % Seg Neutrophils # PT INR APTT D-Dimer Heparin Anti-Xa Level ABG pH POC ABG pCO2 POC ABG pO2 ABG Oxyhemoglobin ABG Sodium ABG Potassium ABG Chloride ABG Glucose Sodium Potassium Chloride Carbon Dioxide BUN Creatinine Glucose POC Glucose 199 H 313 H 304 H Lactic Acid Calcium Ferritin AST Ammonia Lactate Dehydrogenase Total Creatine Kinase CK-MB (CK-2) Troponin T C-Reactive Protein Albumin Triglycerides HDL Cholesterol TSH Free T4 Arterial Blood Glucose Arterial Blood Ionized Calcium Urine WBC (Auto) Salicylates Acetaminophen Coronavirus (PCR) 09/18/20 09/18/20 09/18/20 08:01 08:05 12:36 WBC Hgb MCH MCHC Lymph % (Auto) Lymph # (Auto) Seg Neutrophils % Seg Neutrophils # PT INR APTT D-Dimer Heparin Anti-Xa Level ABG pH POC ABG pCO2 POC ABG pO2 ABG Oxyhemoglobin ABG Sodium ABG Potassium ABG Chloride ABG Glucose Sodium Potassium 3.1 L Chloride Carbon Dioxide BUN Creatinine Glucose 112 H POC Glucose 125 H 159 H Lactic Acid Calcium 8.3 L Ferritin AST 47 H Ammonia Lactate Dehydrogenase Total Creatine Kinase CK-MB (CK-2) Troponin T C-Reactive Protein Albumin 3.3 L Triglycerides HDL Cholesterol TSH Free T4 Arterial Blood Glucose Arterial Blood Ionized Calcium Urine WBC (Auto) Salicylates Acetaminophen Coronavirus (PCR) 09/18/20 09/18/20 09/19/20 16:57 21:40 06:10 WBC Hgb MCH MCHC Lymph % (Auto) Lymph # (Auto) Seg Neutrophils % Seg Neutrophils # PT INR APTT D-Dimer Heparin Anti-Xa Level ABG pH POC ABG pCO2 POC ABG pO2 ABG Oxyhemoglobin ABG Sodium ABG Potassium ABG Chloride ABG Glucose Sodium Potassium 2.8 L* Chloride 97.7 L Carbon Dioxide BUN Creatinine 0.4 L Glucose 146 H POC Glucose 180 H 225 H Lactic Acid Calcium 8.2 L Ferritin AST 45 H Ammonia Lactate Dehydrogenase Total Creatine Kinase CK-MB (CK-2) Troponin T C-Reactive Protein Albumin 3.5 L Triglycerides HDL Cholesterol TSH Free T4 Arterial Blood Glucose Arterial Blood Ionized Calcium Urine WBC (Auto) Salicylates Acetaminophen Coronavirus (PCR) 09/19/20 09/19/20 09/19/20 08:06 11:14 17:50 WBC Hgb MCH MCHC Lymph % (Auto) Lymph # (Auto) Seg Neutrophils % Seg Neutrophils # PT INR APTT D-Dimer Heparin Anti-Xa Level ABG pH POC ABG pCO2 POC ABG pO2 ABG Oxyhemoglobin ABG Sodium ABG Potassium ABG Chloride ABG Glucose Sodium Potassium Chloride Carbon Dioxide BUN Creatinine Glucose POC Glucose 175 H 210 H 291 H Lactic Acid Calcium Ferritin AST Ammonia Lactate Dehydrogenase Total Creatine Kinase CK-MB (CK-2) Troponin T C-Reactive Protein Albumin Triglycerides HDL Cholesterol TSH Free T4 Arterial Blood Glucose Arterial Blood Ionized Calcium Urine WBC (Auto) Salicylates Acetaminophen Coronavirus (PCR) 09/19/20 09/20/20 09/20/20 21:30 05:23 05:23 WBC Hgb MCH MCHC Lymph % (Auto) Lymph # (Auto) Seg Neutrophils % Seg Neutrophils # PT INR APTT D-Dimer Heparin Anti-Xa Level ABG pH POC ABG pCO2 POC ABG pO2 ABG Oxyhemoglobin ABG Sodium ABG Potassium ABG Chloride ABG Glucose Sodium 131 L Potassium 3.3 L D Chloride 95.4 L Carbon Dioxide 18 L BUN Creatinine 0.4 L Glucose 169 H POC Glucose 232 H Lactic Acid Calcium 8.3 L Ferritin 738.9 H AST Ammonia Lactate Dehydrogenase 882 H Total Creatine Kinase CK-MB (CK-2) Troponin T C-Reactive Protein 11.40 H Albumin Triglycerides HDL Cholesterol TSH Free T4 Arterial Blood Glucose Arterial Blood Ionized Calcium Urine WBC (Auto) Salicylates Acetaminophen Coronavirus (PCR) 09/20/20 09/20/20 09/20/20 05:23 06:50 10:46 WBC Hgb MCH MCHC Lymph % (Auto) Lymph # (Auto) Seg Neutrophils % Seg Neutrophils # PT INR APTT D-Dimer 4940.20 H Heparin Anti-Xa Level ABG pH 7.289 L POC ABG pCO2 POC ABG pO2 50.1 L ABG Oxyhemoglobin 80.8 L ABG Sodium 130.8 L ABG Potassium ABG Chloride 97.0 L ABG Glucose 275 H Sodium Potassium Chloride Carbon Dioxide BUN Creatinine Glucose POC Glucose 242 H Lactic Acid Calcium Ferritin AST Ammonia Lactate Dehydrogenase Total Creatine Kinase CK-MB (CK-2) Troponin T C-Reactive Protein Albumin Triglycerides HDL Cholesterol TSH Free T4 Arterial Blood Glucose 275 H Arterial Blood Ionized Calcium 4.2 L Urine WBC (Auto) Salicylates Acetaminophen Coronavirus (PCR) 09/20/20 09/20/20 09/20/20 11:58 16:30 16:41 WBC Hgb MCH MCHC Lymph % (Auto) Lymph # (Auto) Seg Neutrophils % Seg Neutrophils # PT INR APTT D-Dimer Heparin Anti-Xa Level ABG pH POC ABG pCO2 27.8 L POC ABG pO2 79.7 L ABG Oxyhemoglobin ABG Sodium 131.0 L ABG Potassium ABG Chloride ABG Glucose 297 H Sodium Potassium Chloride Carbon Dioxide BUN Creatinine Glucose POC Glucose 262 H 283 H Lactic Acid Calcium Ferritin AST Ammonia Lactate Dehydrogenase Total Creatine Kinase CK-MB (CK-2) Troponin T C-Reactive Protein Albumin Triglycerides HDL Cholesterol TSH Free T4 Arterial Blood Glucose 297 H Arterial Blood Ionized Calcium 4.3 L Urine WBC (Auto) Salicylates Acetaminophen Coronavirus (PCR) 09/20/20 09/20/20 09/21/20 17:26 21:29 00:46 WBC Hgb MCH MCHC Lymph % (Auto) Lymph # (Auto) Seg Neutrophils % Seg Neutrophils # PT INR APTT D-Dimer Heparin Anti-Xa Level ABG pH POC ABG pCO2 POC ABG pO2 ABG Oxyhemoglobin ABG Sodium ABG Potassium ABG Chloride ABG Glucose Sodium Potassium Chloride Carbon Dioxide BUN Creatinine Glucose POC Glucose 297 H 248 H Lactic Acid Calcium Ferritin AST Ammonia Lactate Dehydrogenase Total Creatine Kinase CK-MB (CK-2) Troponin T 0.444 H* C-Reactive Protein Albumin Triglycerides 156 H HDL Cholesterol 22 L TSH Free T4 Arterial Blood Glucose Arterial Blood Ionized Calcium Urine WBC (Auto) Salicylates Acetaminophen Coronavirus (PCR) 09/21/20 09/21/20 09/21/20 00:46 02:14 03:22 WBC Hgb MCH MCHC Lymph % (Auto) Lymph # (Auto) Seg Neutrophils % Seg Neutrophils # PT 20.0 H INR 1.65 H APTT 38.2 H D-Dimer Heparin Anti-Xa Level ABG pH POC ABG pCO2 POC ABG pO2 70.3 L ABG Oxyhemoglobin 92.2 L ABG Sodium 134.2 L ABG Potassium ABG Chloride ABG Glucose 187 H Sodium 134 L Potassium Chloride Carbon Dioxide 18 L BUN 23 H Creatinine Glucose 198 H POC Glucose Lactic Acid Calcium 6.7 L D Ferritin AST Ammonia Lactate Dehydrogenase Total Creatine Kinase CK-MB (CK-2) Troponin T C-Reactive Protein Albumin Triglycerides HDL Cholesterol TSH Free T4 Arterial Blood Glucose 187 H Arterial Blood Ionized Calcium 4.2 L Urine WBC (Auto) Salicylates Acetaminophen Coronavirus (PCR) 09/21/20 09/21/20 09/21/20 07:26 08:15 11:21 WBC Hgb MCH MCHC Lymph % (Auto) Lymph # (Auto) Seg Neutrophils % Seg Neutrophils # PT INR APTT D-Dimer Heparin Anti-Xa Level 0.97 H ABG pH POC ABG pCO2 POC ABG pO2 ABG Oxyhemoglobin ABG Sodium ABG Potassium ABG Chloride ABG Glucose Sodium Potassium Chloride Carbon Dioxide BUN Creatinine Glucose POC Glucose 157 H 153 H Lactic Acid Calcium Ferritin AST Ammonia Lactate Dehydrogenase Total Creatine Kinase CK-MB (CK-2) Troponin T C-Reactive Protein Albumin Triglycerides HDL Cholesterol TSH Free T4 Arterial Blood Glucose Arterial Blood Ionized Calcium Urine WBC (Auto) Salicylates Acetaminophen Coronavirus (PCR) 09/21/20 09/21/20 09/21/20 15:16 15:59 18:58 WBC Hgb MCH MCHC Lymph % (Auto) Lymph # (Auto) Seg Neutrophils % Seg Neutrophils # PT INR APTT D-Dimer Heparin Anti-Xa Level 0.90 H ABG pH POC ABG pCO2 POC ABG pO2 ABG Oxyhemoglobin ABG Sodium ABG Potassium ABG Chloride ABG Glucose Sodium Potassium Chloride Carbon Dioxide BUN Creatinine Glucose POC Glucose 192 H Lactic Acid Calcium Ferritin AST Ammonia Lactate Dehydrogenase Total Creatine Kinase CK-MB (CK-2) Troponin T C-Reactive Protein 8.40 H Albumin Triglycerides HDL Cholesterol TSH Free T4 Arterial Blood Glucose Arterial Blood Ionized Calcium Urine WBC (Auto) Salicylates Acetaminophen Coronavirus (PCR) 09/21/20 09/21/20 09/22/20 18:58 21:14 01:33 WBC Hgb MCH MCHC Lymph % (Auto) Lymph # (Auto) Seg Neutrophils % Seg Neutrophils # PT INR APTT D-Dimer Heparin Anti-Xa Level 0.78 H ABG pH POC ABG pCO2 POC ABG pO2 ABG Oxyhemoglobin ABG Sodium ABG Potassium ABG Chloride ABG Glucose Sodium Potassium Chloride Carbon Dioxide BUN Creatinine Glucose POC Glucose 172 H Lactic Acid Calcium Ferritin AST Ammonia Lactate Dehydrogenase Total Creatine Kinase 536 H CK-MB (CK-2) 17.8 H Troponin T 0.793 H* D C-Reactive Protein Albumin Triglycerides HDL Cholesterol TSH Free T4 Arterial Blood Glucose Arterial Blood Ionized Calcium Urine WBC (Auto) Salicylates Acetaminophen Coronavirus (PCR) 09/22/20 09/22/20 09/22/20 04:15 07:15 10:22 WBC Hgb MCH MCHC Lymph % (Auto) Lymph # (Auto) Seg Neutrophils % Seg Neutrophils # PT INR APTT D-Dimer Heparin Anti-Xa Level ABG pH POC ABG pCO2 POC ABG pO2 ABG Oxyhemoglobin ABG Sodium 132.9 L ABG Potassium ABG Chloride ABG Glucose 155 H Sodium Potassium Chloride Carbon Dioxide BUN Creatinine Glucose POC Glucose 159 H Lactic Acid Calcium Ferritin AST Ammonia Lactate Dehydrogenase Total Creatine Kinase 1159 H CK-MB (CK-2) 14.4 H Troponin T 0.501 H* D C-Reactive Protein Albumin Triglycerides HDL Cholesterol TSH Free T4 Arterial Blood Glucose 155 H Arterial Blood Ionized Calcium 4.3 L Urine WBC (Auto) Salicylates Acetaminophen Coronavirus (PCR) 09/22/20 09/22/2009/22/21 11:34 16:35 17:44 WBC Hgb MCH MCHC Lymph % (Auto) Lymph # (Auto) Seg Neutrophils % Seg Neutrophils # PT INR APTT D-Dimer Heparin Anti-Xa Level 0.15 L ABG pH POC ABG pCO2 POC ABG pO2 ABG Oxyhemoglobin ABG Sodium ABG Potassium ABG Chloride ABG Glucose Sodium Potassium Chloride Carbon Dioxide BUN Creatinine Glucose POC Glucose 206 H 273 H Lactic Acid Calcium Ferritin AST Ammonia Lactate Dehydrogenase Total Creatine Kinase CK-MB (CK-2) Troponin T C-Reactive Protein Albumin Triglycerides HDL Cholesterol TSH Free T4 Arterial Blood Glucose Arterial Blood Ionized Calcium Urine WBC (Auto) Salicylates Acetaminophen Coronavirus (PCR) 09/23/20 09/23/20 09/23/20 00:32 04:00 05:11 WBC Hgb MCH MCHC Lymph % (Auto) Lymph # (Auto) Seg Neutrophils % Seg Neutrophils # PT INR APTT D-Dimer Heparin Anti-Xa Level ABG pH POC ABG pCO2 POC ABG pO2 75.7 L ABG Oxyhemoglobin ABG Sodium 135.0 L ABG Potassium ABG Chloride ABG Glucose 237 H Sodium Potassium Chloride Carbon Dioxide BUN Creatinine Glucose POC Glucose 287 H 210 H Lactic Acid Calcium Ferritin AST Ammonia Lactate Dehydrogenase Total Creatine Kinase CK-MB (CK-2) Troponin T C-Reactive Protein Albumin Triglycerides HDL Cholesterol TSH Free T4 Arterial Blood Glucose 237 H Arterial Blood Ionized Calcium 4.5 L Urine WBC (Auto) Salicylates Acetaminophen Coronavirus (PCR) 09/23/20 09/23/20 09/23/20 08:02 10:03 10:03 WBC 13.8 H Hgb MCH MCHC Lymph % (Auto) Lymph # (Auto) Seg Neutrophils % Seg Neutrophils # PT INR APTT D-Dimer 2573.89 H Heparin Anti-Xa Level ABG pH POC ABG pCO2 POC ABG pO2 ABG Oxyhemoglobin ABG Sodium ABG Potassium ABG Chloride ABG Glucose Sodium Potassium Chloride Carbon Dioxide BUN Creatinine Glucose POC Glucose 268 H Lactic Acid Calcium Ferritin AST Ammonia Lactate Dehydrogenase Total Creatine Kinase CK-MB (CK-2) Troponin T C-Reactive Protein Albumin Triglycerides HDL Cholesterol TSH Free T4 Arterial Blood Glucose Arterial Blood Ionized Calcium Urine WBC (Auto) Salicylates Acetaminophen Coronavirus (PCR) 09/23/20 09/23/20 09/23/20 10:03 10:03 10:03 WBC Hgb MCH MCHC Lymph % (Auto) Lymph # (Auto) Seg Neutrophils % Seg Neutrophils # PT INR APTT D-Dimer Heparin Anti-Xa Level 0.12 L ABG pH POC ABG pCO2 POC ABG pO2 ABG Oxyhemoglobin ABG Sodium ABG Potassium ABG Chloride ABG Glucose Sodium Potassium Chloride Carbon Dioxide BUN 26 H Creatinine Glucose 271 H POC Glucose Lactic Acid Calcium 8.2 L D Ferritin 1084.0 H AST Ammonia Lactate Dehydrogenase 1592 H Total Creatine Kinase CK-MB (CK-2) Troponin T C-Reactive Protein 9.10 H Albumin Triglycerides HDL Cholesterol TSH Free T4 Arterial Blood Glucose Arterial Blood Ionized Calcium Urine WBC (Auto) Salicylates Acetaminophen Coronavirus (PCR) 09/23/20 12:17 WBC Hgb MCH MCHC Lymph % (Auto) Lymph # (Auto) Seg Neutrophils % Seg Neutrophils # PT INR APTT D-Dimer Heparin Anti-Xa Level ABG pH POC ABG pCO2 POC ABG pO2 ABG Oxyhemoglobin ABG Sodium ABG Potassium ABG Chloride ABG Glucose Sodium Potassium Chloride Carbon Dioxide BUN Creatinine Glucose POC Glucose 282 H Lactic Acid Calcium Ferritin AST Ammonia Lactate Dehydrogenase Total Creatine Kinase CK-MB (CK-2) Troponin T C-Reactive Protein Albumin Triglycerides HDL Cholesterol TSH Free T4 Arterial Blood Glucose Arterial Blood Ionized Calcium Urine WBC (Auto) Salicylates Acetaminophen Coronavirus (PCR) Chest x-ray: image reviewed (persistent infiltrates; ETT riding high) Allied health notes reviewed: nursing
--- NOTE | 2020-09-23 13:29 | Event Note ---
Date: 09/23/20
[2020-09-23] MEDS: INSULIN GLARGINE 100 UNITS/ML SUB-Q SCH (14:45)
[2020-09-23] MEDS ORDERED: TAMSULOSIN 0.4 MG CAP PO SCH (15:00)
--- NOTE | 2020-09-23 15:03 | Progress Note ---
Assessment and Plan Cultures: Blood culture no growth so far Covid PUI positive A/P: 54-year-old female past medical history bipolar, hypothyroidism, hyperten aubree, diabetes now with: #Acute hypoxic respiratory failure: Likely secondary to pneumonia, procalcitonin was normal. Now on the vent #Covid pneumonia: PCR positive #Bilateral pneumonia #Drug overdose: With trazodone Recs: -Complete 5 days Remdesivir -Steroids per primary for 10 days -Actemra ordered however unavailable. Thank you for the consult, we will continue to follow. Dominique Patel MD [facility] ([facility]) O: [phone] F: [phone] Subjective Date of service: 09/23/20 Principal diagnosis: Ac encephalopathy; CAP; Sepsis; COVID-19 infxn; Ac hypoxemic resp failure Interval history: Afebrile, white count slightly elevated today. Remains on the vent. Objective - Exam Narrative Exam: Physical exam deferred to reduce risk of transmission of COVID-19. Please refer to primary team's note. - Constitutional Vitals: Vital Signs Temp Pulse Resp BP Pulse Ox 98.0 F 76 17 120/63 94 09/23/20 08:00 09/23/20 14:45 09/23/20 14:45 09/23/20 14:45 09/23/20 14:45 Temperature -Last 24 Hours Temperature 98.0 F Temperature 98.9 F Temperature 97.8 F Temperature 98.2 F Temperature 98.4 F - Labs CBC & Chem 7: 09/23/20 10:03 09/23/20 10:03 Labs: Abnormal lab results 09/22/20 09/22/20 09/23/20 Range/Units 16:35 17:44 00:32 WBC (4.5-11.0) K/mm3 D-Dimer (0-234) ng/mlDDU Heparin Anti-Xa Level 0.15 L (0.3-0.7) U.I./ml POC ABG pO2 (83-108) mmHg ABG Sodium (136.0-145.0) mmol/L ABG Glucose (65-95) mg/dL BUN (7-17) mg/dL Glucose (65-100) mg/dL POC Glucose 273 H 287 H (70-105) mg/dL Calcium (8.4-10.2) mg/dL Ferritin (10.0-200.0) ng/mL Lactate Dehydrogenase (91-180) units/L C-Reactive Protein (0.00-1.30) mg/dL Arterial Blood Glucose (65-95) mg/dL Arterial Blood Ionized Calcium (4.6-5.3) mg/dL 09/23/20 09/23/20 09/23/20 Range/Units 04:00 05:11 08:02 WBC (4.5-11.0) K/mm3 D-Dimer (0-234) ng/mlDDU Heparin Anti-Xa Level (0.3-0.7) U.I./ml POC ABG pO2 75.7 L (83-108) mmHg ABG Sodium 135.0 L (136.0-145.0) mmol/L ABG Glucose 237 H (65-95) mg/dL BUN (7-17) mg/dL Glucose (65-100) mg/dL POC Glucose 210 H 268 H (70-105) mg/dL Calcium (8.4-10.2) mg/dL Ferritin (10.0-200.0) ng/mL Lactate Dehydrogenase (91-180) units/L C-Reactive Protein (0.00-1.30) mg/dL Arterial Blood Glucose 237 H (65-95) mg/dL Arterial Blood Ionized Calcium 4.5 L (4.6-5.3) mg/dL 09/23/20 09/23/20 09/23/20 Range/Units 10:03 10:03 10:03 WBC 13.8 H (4.5-11.0) K/mm3 D-Dimer 2573.89 H (0-234) ng/mlDDU Heparin Anti-Xa Level (0.3-0.7) U.I./ml POC ABG pO2 (83-108) mmHg ABG Sodium (136.0-145.0) mmol/L ABG Glucose (65-95) mg/dL BUN 26 H (7-17) mg/dL Glucose 271 H (65-100) mg/dL POC Glucose (70-105) mg/dL Calcium 8.2 L D (8.4-10.2) mg/dL Ferritin (10.0-200.0) ng/mL Lactate Dehydrogenase 1592 H (91-180) units/L C-Reactive Protein 9.10 H (0.00-1.30) mg/dL Arterial Blood Glucose (65-95) mg/dL Arterial Blood Ionized Calcium (4.6-5.3) mg/dL 09/23/20 09/23/20 09/23/20 Range/Units 10:03 10:03 12:17 WBC (4.5-11.0) K/mm3 D-Dimer (0-234) ng/mlDDU Heparin Anti-Xa Level 0.12 L (0.3-0.7) U.I./ml POC ABG pO2 (83-108) mmHg ABG Sodium (136.0-145.0) mmol/L ABG Glucose (65-95) mg/dL BUN (7-17) mg/dL Glucose (65-100) mg/dL POC Glucose 282 H (70-105) mg/dL Calcium (8.4-10.2) mg/dL Ferritin 1084.0 H (10.0-200.0) ng/mL Lactate Dehydrogenase (91-180) units/L C-Reactive Protein (0.00-1.30) mg/dL Arterial Blood Glucose (65-95) mg/dL Arterial Blood Ionized Calcium (4.6-5.3) mg/dL
[2020-09-23] MEDS: TAMSULOSIN 0.4 MG CAP PO SCH (17:24)
--- NOTE | 2020-09-23 18:49 | Progress Note ---
Assessment and Plan Assessment and plan: This is a 54-year-old female with bipolar disorder, hypothyroidism, hypertension, diabetes mellitus admitted for acute hypoxic respiratory failure, COVID-19 pneumonia, NSTEMI Neuro: Acute metabolic encephalopathy, drug ingestion, h/o bipolar -Psych consult, appreciate recommendations -Zoloft -Patient follows commands, PERRL -Avoid delirium -Reorientation as needed -Sedated with fentanyl, goal RASS 0 to -1 Cardiology: NSTEMI, h/o HTN -Cardiology consulted, appreciate recommendations -Echocardiogram pending -Aspirin 162, Plavix 75, beta-genny, as needed nitroglycerin -Blood pressure monitoring per protocol -Heparin drip Respiratory: Acute hypoxic respiratory failure -On mechanical ventilation, wean as tolerated -CCM consulted, initiate recommendations -VAP bundle -SPO2 monitoring -Serial CXR and ABGs -Current vent settings: Tidal volume 450, rate 18, PEEP 12, FiO2 95% -RT to advance her ETT 1 cm per CCM -09/23 ABG on 9 5% FiO2 seven-point // GI: NAD -Nutrition consulted, patient recommendations -Tube feedings -Accu-Cheks every 6 -SSI -PPI -As needed MiraLAX, MOM : Urinary retention -Patient is to be straight cathed x2 per RN, RN instructed to replace Laura catheter if need to be straight cath again -Flomax -Trend BMP Endo: Hypothyroidism, h/o DM -SSI -Accu-Cheks every 6 -Synthroid -Avoid hypoglycemia -Long-acting insulin Heme: NAD -Trend CBC -Transfuse for hemoglobin less than 7 -Systemic anticoagulation with heparin drip ID: COVID-19 pneumonia, UTI, sepsis -COVID-19 PCR + 09/16/2020 -Very disease consulted, appreciate recommendations -S/p remdesivir 5 days -Dexamethasone -Awaiting Actemra -ABX completed -Contact/droplet precautions -Trend COVID-19 inflammatory markers The high probability of a clinically significant, sudden or life threatening d eterioration of the [cardiorespiratory] system(s) required my full and direct attention, intervention and personal management. The aggregate critical care time was [60] minutes. This time is in addition to time spent performing reported procedures but includes the following: [x] Data Review and interpretation [x] Patient assessment and monitoring of vital signs [x] Documentation [x] Medication orders and management Disposition Plan: ICU Total Time Spent with Patient (Minutes): 60 History Interval history: This is a 54-year-old female with bipolar disorder, hypothyroidism, hypertension, diabetes mellitus who presents to the emergency department via EMS after having being found on the floor with a generalized weakness vs syncope as the patient is in the case that she took some trazodone in order to get to sleep but cannot recall how many tablets she took her dosage. The final regimen patient was confused but arousable and responds to questions during her course of stay. In the emergency department she was found to be hypoxic upon arrival with O2 sat of 82% on room air and was placed on supplemental oxygen. Work-up in the emergency department included a CXR which revealed patchy parenchymal opacities, hyponatremia of 128, hypokalemia 3.2, elevated blood glucose of 388, lactic acidosis 2.7, elevated TSH at 34.67 and free T4 at 0.1. UA revealed UTI and tox screen revealed Tylenol level of 9.1. Patient was admitted to the hospital service with acute hypoxic respiratory failure secondary to pneumonia, hypokalemia, drug overdose and hyperglycemia. She was admitted as a COVID-19 PUI and infectious disease was also consulted. Psych was consulted for history of bipolar and possible drug overdose. Upon arrival to the ICU for progressive shortness of breath and progressively worsening CXR patient was noted to have an NSTEMI and cardiology was consulted. 09/16/2020 COVID-pneumonia Coronavirus PCR positive Patient on 5 L nasal cannula oxygen 09/17/2020 Covid pneumonia Covid PCR positive yesterday Patient on 5 L nasal cannula oxygen ID consult appreciated On remdesivir 09/18/2020 Still on 5 L nasal cannula oxygen Saturations dropped to 88% on 3 L nasal cannula oxygen Trying to wean but not possible Continue remdesivir 09/20/2020; Patient is severely hypoxemic, requiring very high flow oxygen And intermittent BiPAP, x-ray chest worsening infiltrates Patient is severely hypoxemic even on BiPAP, supervisor correspondence section recommend Transfer to ICU for close observation and possible intubation if no improvement I called NOK patient's mother and discussed in detail patient's deterioration, severe hypoxemia Transfer to ICU, possible intubation if needed she informed me that. Her recently With Covid infection, and she herself is Covid positive. 09/21/2020; patient was intubated yesterday On ventilatory support Non-ST elevation PA, check echocardiogram Cardiology evaluation noted and appreciated Discussed with 09/22: Patient's PEEP was increased to 14. CCM, will order to remove her Laura catheter today and IV heparin was changed to IV Lovenox 09/23: Continue current medical management for NSTEMI, advance O ETT by 1 cm, increase PEEP and reduced FiO2 per CCM. Patient had retention today and Laura will be replaced with 30 straight cath and patient will be started on Flomax. Hospitalist Physical - Constitutional Vitals: Temp Pulse Resp BP Pulse Ox 98.0 F 80 18 114/59 94 09/23/20 08:00 09/23/20 18:00 09/23/20 18:00 09/23/20 18:00 09/23/20 18:00 General appearance: Present: no acute distress, well-nourished, other (Intubated on vent) - EENT Eyes: Present: PERRL ENT: hearing intact, clear oral mucosa - Neck Neck: Present: normal ROM - Respiratory Respiratory effort: normal Respiratory: bilateral: CTA, diminished - Cardiovascular Rhythm: regular Heart Sounds: Present: S1 & S2. Absent: systolic murmur - Extremities Extremities: no ischemia, pulses intact, pulses symmetrical, No edema, normal temperature, normal color Peripheral Pulses: within normal limits - Abdominal General gastrointestinal: soft, non-tender, non-distended, normal bowel sounds - Integumentary Integumentary: Present: warm, dry - Psychiatric Psychiatric: other (Sedated) - Neurologic Neurologic: other (Sedated) - Allied Health Allied health notes reviewed: nursing, RT, social work HEART Score - HEART Score Troponin: Troponin T 0.501 ng/mL (0.00-0.029) H* D 09/22/20 10:22 Results - Labs CBC & Chem 7: 09/23/20 10:03 09/23/20 10:03 Labs: Laboratory Last Values WBC 13.8 K/mm3 (4.5-11.0) H 09/23/20 10:03 RBC 4.32 M/mm3 (3.65-5.03) 09/23/20 10:03 Hgb 13.6 gm/dl (10.1-14.3) 09/23/20 10:03 Hct 40.3 % (30.3-42.9) 09/23/20 10:03 MCV 93 fl (79-97) 09/23/20 10:03 MCH 32 pg (28-32) 09/23/20 10:03 MCHC 34 % (30-34) 09/23/20 10:03 RDW 15.2 % (13.2-15.2) 09/23/20 10:03 Plt Count 235 K/mm3 (140-440) 09/23/20 10:03 Lymph % (Auto) 7.3 % (13.4-35.0) L 09/16/20 04:47 Perry % (Auto) 6.6 % (0.0-7.3) 09/16/20 04:47 Eos % (Auto) 0.0 % (0.0-4.3) 09/16/20 04:47 Baso % (Auto) 0.4 % (0.0-1.8) 09/16/20 04:47 Lymph # (Auto) 0.8 K/mm3 (1.2-5.4) L 09/16/20 04:47 Perry # (Auto) 0.7 K/mm3 (0.0-0.8) 09/16/20 04:47 Eos # (Auto) 0.0 K/mm3 (0.0-0.4) 09/16/20 04:47 Baso # (Auto) 0.0 K/mm3 (0.0-0.1) 09/16/20 04:47 Seg Neutrophils % 85.7 % (40.0-70.0) H 09/16/20 04:47 Seg Neutrophils # 8.9 K/mm3 (1.8-7.7) H 09/16/20 04:47 PT 20.0 Sec. (12.2-14.9) H 09/21/20 02:14 INR 1.65 (0.87-1.13) H 09/21/20 02:14 APTT 38.2 Sec. (24.2-36.6) H 09/21/20 02:14 D-Dimer 2573.89 ng/mlDDU (0-234) H 09/23/20 10:03 Heparin Anti-Xa Level 0.12 U.I./ml (0.3-0.7) L 09/23/20 10:03 ABG pH 7.328 (7.320-7.450) 09/23/20 04:00 POC ABG pCO2 45.2 mmHg (32.0-48.0) 09/23/20 04:00 POC ABG pO2 75.7 mmHg (83-108) L 09/23/20 04:00 POC ABG HCO3 23.2 09/23/20 04:00 ABG O2 Saturation 95.1 (0-100) 09/23/20 04:00 POC ABG Base Excess -2.9 09/23/20 04:00 ABG Hemoglobin 13.5 (12.0-17.5) 09/23/20 04:00 ABG Oxyhemoglobin 94.0 (94-98) 09/23/20 04:00 ABG Methemoglobin 0.3 (0.0-1.5) 09/23/20 04:00 ABG Sodium 135.0 mmol/L (136.0-145.0) L 09/23/20 04:00 ABG Potassium 4.0 mmol/L (3.40-4.50) 09/23/20 04:00 ABG Chloride 106.0 mmol/L (98-107) 09/23/20 04:00 ABG Glucose 237 mg/dL (65-95) H 09/23/20 04:00 VBG pH 7.368 (7.320-7.420) 09/15/20 18:46 Carboxyhemoglobin 0.9 (0.5-1.5) 09/23/20 04:00 FiO2 % 95.0 09/23/20 04:00 Sodium 141 mmol/L (137-145) D 09/23/20 10:03 Potassium 4.2 mmol/L (3.6-5.0) 09/23/20 10:03 Chloride 105.1 mmol/L (98-107) 09/23/20 10:03 Carbon Dioxide 25 mmol/L (22-30) D 09/23/20 10:03 Anion Gap 15 mmol/L 09/23/20 10:03 BUN 26 mg/dL (7-17) H 09/23/20 10:03 Creatinine 0.7 mg/dL (0.6-1.2) 09/23/20 10:03 Estimated GFR > 60 ml/min 09/23/20 10:03 BUN/Creatinine Ratio 37 % 09/23/20 10:03 Glucose 271 mg/dL (65-100) H 09/23/20 10:03 POC Glucose 392 mg/dL (70-105) H 09/23/20 18:30 Lactic Acid 1.80 mmol/L (0.7-2.0) 09/17/20 04:59 Calcium 8.2 mg/dL (8.4-10.2) L D 09/23/20 10:03 Magnesium 1.70 mg/dL (1.7-2.3) 09/21/20 00:46 Ferritin 1084.0 ng/mL (10.0-200.0) H 09/23/20 10:03 Total Bilirubin 0.80 mg/dL (0.1-1.2) 09/19/20 06:10 AST 45 units/L (5-40) H 09/19/20 06:10 ALT 35 units/L (7-56) 09/19/20 06:10 Alkaline Phosphatase 108 units/L (35-129) 09/19/20 06:10 Ammonia 23.0 umol/L (25-60) L 09/15/20 18:46 Lactate Dehydrogenase 1592 units/L (91-180) H 09/23/20 10:03 Total Creatine Kinase 1159 units/L (30-135) H 09/22/20 10:22 CK-MB (CK-2) 14.4 ng/mL (0.0-4.0) H 09/22/20 10:22 CK-MB (CK-2) Rel Index 1.2 (0-4) 09/22/20 10:22 Troponin T 0.501 ng/mL (0.00-0.029) H* D 09/22/20 10:22 C-Reactive Protein 9.10 mg/dL (0.00-1.30) H 09/23/20 10:03 Total Protein 6.6 g/dL (6.3-8.2) 09/19/20 06:10 Albumin 3.5 g/dL (3.9-5) L 09/19/20 06:10 Albumin/Globulin Ratio 1.1 % 09/19/20 06:10 Triglycerides 156 mg/dL (2-149) H 09/21/20 00:46 Cholesterol 139 mg/dL (50-199) 09/21/20 00:46 LDL Cholesterol Direct 85 mg/dL (50-130) 09/21/20 00:46 HDL Cholesterol 22 mg/dL (40-59) L 09/21/20 00:46 Cholesterol/HDL Ratio 6.31 % 09/21/20 00:46 Procalcitonin 0.05 ng/mL (<0.15) 09/17/20 04:59 TSH 34.670 mlU/mL (0.270-4.200) H 09/15/20 18:46 Free T4 0.10 ng/dL (0.76-1.46) L 09/15/20 19:43 Arterial Blood Glucose 237 mg/dL (65-95) H 09/23/20 04:00 Arterial Blood Ionized Calcium 4.5 mg/dL (4.6-5.3) L 09/23/20 04:00 Urine Color Yellow (Yellow) 09/15/20 Unknown Urine Turbidity Cloudy (Clear) 09/15/20 Unknown Urine pH 7.0 (5.0-7.0) 09/15/20 Unknown Ur Specific Kimberly 1.017 (1.003-1.030) 09/15/20 Unknown Urine Protein 100 mg/dl mg/dL (Negative) 09/15/20 Unknown Urine Glucose (UA) >=500 mg/dL (Negative) 09/15/20 Unknown Urine Ketones 20 mg/dL (Negative) 09/15/20 Unknown Urine Blood Lg (Negative) 09/15/20 Unknown Urine Nitrite Neg (Negative) 09/15/20 Unknown Urine Bilirubin Neg (Negative) 09/15/20 Unknown Urine Urobilinogen < 2.0 mg/dL (<2.0) 09/15/20 Unknown Ur Leukocyte Esterase Lg (Negative) 09/15/20 Unknown Urine WBC (Auto) > 182.0 /HPF (0.0-6.0) H 09/15/20 Unknown Urine RBC (Auto) 92.0 /HPF (0.0-6.0) 09/15/20 Unknown U Epithel Cells (Auto) 4.0 /HPF (0-13.0) 09/15/20 Unknown Urine Bacteria (Auto) 3+ /HPF (Negative) 09/15/20 Unknown Urine WBC Clumps 2+ /HPF 09/15/20 Unknown Urine Yeast (Budding) 3+ /HPF 09/15/20 Unknown Salicylates < 0.3 mg/dL (2.8-20.0) L 09/15/20 18:46 Urine Opiates Screen Presumptive negative 09/15/20 Unknown Urine Methadone Screen Presumptive negative 09/15/20 Unknown Acetaminophen 5.0 ug/mL (10.0-30.0) L 09/16/20 21:38 Ur Barbiturates Screen Presumptive negative 09/15/20 Unknown Ur Phencyclidine Scrn Presumptive negative 09/15/20 Unknown Ur Amphetamines Screen Presumptive negative 09/15/20 Unknown U Benzodiazepines Scrn Presumptive negative 09/15/20 Unknown Urine Cocaine Screen Presumptive negative 09/15/20 Unknown U Marijuana (THC) Screen Presumptive negative 09/15/20 Unknown Drugs of Abuse Note Disclamer 09/15/20 Unknown Plasma/Serum Alcohol < 0.01 % (0-0.07) 09/15/20 18:46 Coronavirus (PCR) Positive (Negative) A 09/16/20 08:00 Laura/IV: Voiding Method Indwelling Catheter Active Medications - Current Medications Current Medications: Generic Name Dose Route Start Last Admin Trade Name Freq PRN Reason Stop Dose Admin Albuterol 2.5 mg 09/20/20 12:28 Albuterol 2.5 Mg/3 Ml Nebu IH Q4HRT PRN Shortness Of Breath Lipase/Protease/Amylase 1 each 09/22/20 08:06 Lipase 10,500/Protease 25,000/Amylase 43,750 (Units) Dr Young FEEDTUBE PRN PRN For Clogged Feeding Tube Ascorbic Acid 500 mg 09/22/20 22:00 09/23/20 10:59 Ascorbic Acid 500 Mg Tab PO 500 mg BID AMANDA Administration Aspirin 162 mg 09/21/20 15:00 09/23/20 10:59 Aspirin 81 Mg Tab Chew PO 162 mg QDAY AMANDA Administration Cholecalciferol 5,000 unit 09/23/20 10:00 09/23/20 10:58 Cholecalciferol (Vit D3) 5,000 Unit Tab PO 5,000 unit DAILY AMANDA Administration Clopidogrel Bisulfate 75 mg 09/22/20 10:00 09/23/20 10:59 Clopidogrel 75 Mg Tab PO 75 mg QDAY AMANDA Administration Dexamethasone 6 mg 09/16/20 10:00 09/23/20 10:58 Dexamethasone 4 Mg/Ml Vial IV 09/24/20 10:01 6 mg Q24HR AMANDA Administration Dextrose 50 ml 09/16/20 21:24 Dextrose 50% In Water (25gm) 50 Ml Syringe IV Q30MIN PRN Hypoglycemia Protocol Famotidine 20 mg 09/22/20 10:00 09/23/20 10:59 Famotidine 20 Mg Tab PO 20 mg BID AMANDA Administration Fentanyl 50 mcg 09/20/20 19:02 Fentanyl 100 Mcg/2 Ml Inj IV Q10MIN PRN ANALGESIA Heparin Sodium (Porcine) 3,100 unit 09/21/20 01:42 Heparin 10,000 Units/10 Ml Vial 40 unit/kg (3100 unit) IV Q6H PRN Anti-Xa Assay < 0.1 units/ml Hydrophilic Ointment 1 applic 09/20/20 19:02 Lip Therapy Vaseline TP Q2HR PRN Dry Lips Fentanyl Citrate 2,000 mcg in 100 mls @ 3.925 mls/hr 09/20/20 20:00 09/22/20 13:57 Fentanyl Drip Premix IV 1 mcg/kg/hr TITR AMANDA 3.925 mls/hr Administration Protocol 1 MCG/KG/HR Heparin Sodium/Sodium Chloride 25,000 unit in 500 mls @ 20 mls/hr 09/21/20 02:00 09/23/20 13:00 Heparin/ 0.45% Nacl-25,000 Unit/500 Ml IV 500 units/hr TITRATE AMANDA 10 mls/hr Titration Protocol 1,000 UNITS/HR TOCILIZUMAB 600 mg/ Sodium 130 mls @ 120 mls/hr 09/21/20 14:23 Chloride IV 09/21/20 15:27 ONCE ONE Insulin Glargine 10 units 09/23/20 14:00 09/23/20 14:45 Insulin Glargine 100 Units/Ml SUB-Q 10 units QAMDIAB AMANDA Administration Insulin Human Regular 0 units 09/23/20 12:00 09/23/20 18:36 Insulin Regular, Human 100 Units/1 Ml SUB-Q 10 units Q6H AMANDA Administration Protocol Levothyroxine Sodium 125 mcg 09/18/20 06:00 09/23/20 10:59 Levothyroxine 125 Mcg Tab PO Not Given DAILY@0600 AMANDA Magnesium Hydroxide 30 ml 09/15/20 22:09 Magnesium Hydroxide (Mom) Oral Liqd Udc PO Q4H PRN Constipation Metoprolol Tartrate 2.5 mg 09/21/20 15:00 09/23/20 13:27 Metoprolol Tartrate 5 Mg/5 Ml Inj IV 2.5 mg Q8HR AMANDA Administration Multi-Ingred Cream/Lotion/Oil/Oint 1 applic 09/20/20 19:02 Mineral Oil/Petrolatum, White Ophth Oint 3.5 Gm OU Q4HR PRN Dry Eye(s) Naloxone HCl 0.1 mg 09/15/20 18:36 Naloxone 0.4 Mg/1 Ml Inj IV Q2MIN PRN Res Rate </= 8 or 02 SAT < 92% Nitroglycerin 0.5 inch 09/22/20 06:00 09/23/20 13:27 Nitroglycerin 2% Oint 1 Gm TP 0.5 inch BIDNTG AMANDA Administration Protocol Ondansetron HCl 4 mg 09/15/20 22:09 Ondansetron 4 Mg/2 Ml Inj IV Q8H PRN Nausea And Vomiting Sertraline HCl 25 mg 09/17/20 12:00 09/23/20 11:01 Sertraline 25 Mg Tab PO 25 mg QDAY AMANDA Administration Simple Syrup 15 ml 09/22/20 08:06 Simple Syrup 15 Ml FEEDTUBE PRN PRN Hypoglycemia Simple Syrup 30 ml 09/22/20 08:06 Simple Syrup 15 Ml FEEDTUBE PRN PRN Hypoglycemia Sodium Bicarbonate 325 mg 09/22/20 08:06 Sodium Bicarbonate 325 Mg Tab FEEDTUBE PRN PRN For Clogged Feeding Tube Sodium Chloride 10 ml 09/16/20 10:00 09/23/20 11:01 Sodium Chloride 0.9% 10 Ml Flush Syringe IV 10 ml BID AMANDA Administration Sodium Chloride 10 ml 09/15/20 22:09 Sodium Chloride 0.9% 10 Ml Flush Syringe IV PRN PRN LINE FLUSH Tamsulosin HCl 0.4 mg 09/23/20 16:00 09/23/20 17:24 Tamsulosin 0.4 Mg Cap PO 0.4 mg QDAY AMANDA Administration Zinc Sulfate 220 mg 09/22/20 22:00 09/23/20 11:09 Zinc Sulfate 220 Mg Cap PO 220 mg BID AMANDA Administration Nutrition/Malnutrition Assess - Dietary Evaluation Nutrition/Malnutrition Findings: Nutrition Notes Start: 09/16/20 15:13 Freq: Status: Active Protocol: Document 09/22/20 08:00 RHEA (Rec: 09/22/20 08:06 [id number]) Nutrition Notes Need for Assessment generated from: MD Order Initial or Follow up Reassessment Current Diagnosis Diabetes,Hypertension, Respiratory Failure Other Pertinent Diagnosis pneu, drug OD, COVID-19 Current Diet No diet Labs/Tests POC BG [phone] Pertinent Medications Insulin Decadron Height 5 ft 6 in Weight 78.5 kg [place] Body Weight (kg) 59.09 BMI 27.9 Weight Status Appropriate Subjective/Other Information MD consult for TF. Pt was intubated yesterday. Burn Absent Trauma Absent Minimum of two criteria No physical signs of malnutrition #1 Nutrition Diagnosis Inadequate oral intake Etiology ARF As Evidenced by Signs and Symptoms pt on vent and unable to consume PO Diagnosis Progress(for reassessment Continues documentation) Is patient on ventilator? Yes Is Patient Ambulatory and/or Out of Bed Yes REE-([facility]-ambulatory/OOB) [ [id number] [id number]] Calculation Used for Recommendations [facility] Additional Notes Protein: (1.2-2g/kg) 94-157g Fluid: 1 ml/kcal Nutrition Intervention Change Diet Order: Start TF Nutrition Support: Vital AF 1.2 at 60 ml/hr Flush 75 ml q4h or per MD Kcal 1,728 Protein (gm) 108 Fluid (mL) 1,168 Add Supplement/Snack (indicate name/kcal D/C /protein ) Goal #1 Meet at least 75% of energy and protein needs via TF Anticipated Discharge Needs: Unable to determine at this time Follow-Up By: 09/24/20 Additional Comments F/u: TF start/tolerance
[2020-09-24] MEDS: ASCORBIC ACID 500 MG TAB PO SCH ×3 (00:41→21:56)
[2020-09-24] MEDS: INSULIN REGULAR, HUMAN 100 UNITS/1 ML SUB-Q SCH ×4 (00:43→17:35)
[2020-09-24 05:04] LABS: Hematocrit 36.1 % (30.3-42.9); Hemoglobin 12.1 gm/dl (10.1-14.3); Mean Corpuscular HGB Conc 34 % (30-34); Mean Corpuscular Volume 93 fl (79-97); Platelet Count 227 K/mm3 (140-440); Red Cell Distribution Width 14.7 % (13.2-15.2)
--- NOTE | 2020-09-24 05:10 | XRay Report ---
CHEST - 1 VIEW INDICATION: follow up respiratory failure COMPARISON: Yesterday FINDINGS: SUPPORT DEVICES: Stable support device positioning. HEART: Stable cardiomediastinal silhouette. LUNGS/PLEURA: Persistent mild patchy multifocal airspace disease. ADDITIONAL FINDINGS: None. IMPRESSION: Unchanged exam. Signer Name: Dale Naranjo MD Signed: 09/24/2020 5:06 AM Workstation Name: [id number]
[2020-09-24 05:19] LABS: Blood Urea Nitrogen 25 mg/dL (7-17); Hemolysis Index 2
[2020-09-24 05:24] LABS: BUN/Creatinine Ratio 36
[2020-09-24] MEDS: NITROGLYCERIN 2% OINT 1 GM TP SCH ×2 (06:26→14:00)
[2020-09-24] MEDS: LEVOTHYROXINE 125 MCG TAB PO SCH (06:59)
[2020-09-24] MEDS: INSULIN GLARGINE 100 UNITS/ML SUB-Q SCH (08:29)
[2020-09-24] MEDS: fentaNYL DRIP Premix 2,000 MCG/100 ML BAG IV SCH (08:47)
[2020-09-24] MEDS: ZINC SULFATE 220 MG CAP PO SCH ×2 (09:31→21:57)
[2020-09-24] MEDS: CHOLECALCIFEROL (VIT D3) 5,000 UNIT TAB PO SCH (09:31)
[2020-09-24] MEDS: SERTRALINE 25 MG TAB PO SCH (09:31)
[2020-09-24] MEDS: CLOPIDOGREL 75 MG TAB PO SCH (09:31)
[2020-09-24] MEDS: TAMSULOSIN 0.4 MG CAP PO SCH (09:31)
[2020-09-24] MEDS: ASPIRIN 81 MG TAB CHEW PO SCH (09:31)
[2020-09-24] MEDS: FAMOTIDINE 20 MG TAB PO SCH ×2 (09:32→21:56)
[2020-09-24] MEDS: dexAMETHasone 4 MG/ML VIAL IV SCH (09:32)
[2020-09-24] MEDS: METOPROLOL TARTRATE 5 MG/5 ML INJ IV SCH ×3 (09:42→21:55)
[2020-09-24] MEDS ORDERED: INSULIN GLARGINE 100 UNITS/ML SUB-Q ONE (10:00)
--- NOTE | 2020-09-24 10:36 | Progress Note ---
Assessment and Plan Patient admitted with respiratory failure due to Covid pneumonia, with worsening, bilateral dense infiltrates of acute bilateral pneumonia on chest x- ray. Currently unresponsive, on the vent in the ICU on supportive management. Clinical course complicated by the development of an acute non-ST elevation myocardial infarction evident on the ECG and elevated troponin. Recommendations: The patient is not a candidate for aggressive and invasive cardiac therapies, in the setting of respiratory failure due to severe viral pneumonia and sepsis. Continue aggressive medical therapy including heparin drip, topical nitrates, beta-blockers, aspirin and Plavix. Echocardiogram shows relatively well-preserved left ventricular systolic function. Prognosis is poor in the setting of severe respiratory failure due to severe viral pneumonia and intercurrent acute non-ST elevation infarct. 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 Objective Vital Signs Temp Pulse Resp BP Pulse Ox 09/24/20 09:42 85 102/54 09/24/20 09:00 86 107/54 93 09/24/20 06:30 84 18 109/59 93 09/24/20 06:26 84 106/55 09/24/20 06:15 82 18 106/55 95 09/24/20 06:00 82 18 106/55 94 09/24/20 05:45 86 18 108/57 96 09/24/20 05:30 84 18 108/57 94 09/24/20 05:15 85 18 107/55 96 09/24/20 05:00 86 18 107/55 93 09/24/20 04:45 86 18 107/56 95 09/24/20 04:30 89 18 107/56 92 09/24/20 04:19 87 115/61 93 09/24/20 04:15 87 18 115/61 93 09/24/20 04:00 99.2 F 84 19 115/61 91 09/24/20 03:45 87 16 114/58 95 09/24/20 03:30 88 18 114/58 91 09/24/20 03:15 86 18 115/59 95 09/24/20 03:00 85 18 115/59 92 09/24/20 02:45 84 18 112/60 95 09/24/20 02:30 86 18 112/60 92 09/24/20 02:15 84 18 113/61 95 09/24/20 02:00 86 17 113/61 92 09/24/20 01:45 87 18 116/65 95 09/24/20 01:30 86 17 115/62 92 09/24/20 01:15 87 17 108/59 94 09/24/20 01:00 85 18 116/65 91 09/24/20 00:45 88 17 108/59 96 09/24/20 00:30 86 17 108/59 95 09/24/20 00:15 86 18 107/56 96 09/24/20 00:02 83 107/56 97 09/24/20 00:00 100.0 F H 85 18 107/56 95 09/23/20 23:45 84 18 107/57 97 09/23/20 23:30 85 18 107/57 95 09/23/20 23:15 81 18 99/58 97 09/23/20 23:00 81 18 99/58 95 09/23/20 22:45 80 18 102/56 97 09/23/20 22:30 86 18 108/56 94 09/23/20 22:21 90 102/56 09/23/20 22:15 92 H 18 109/59 96 09/23/20 22:00 88 18 102/56 94 09/23/20 21:45 88 18 108/56 97 09/23/20 21:30 88 18 109/59 95 09/23/20 21:15 87 18 104/57 96 09/23/20 21:00 85 18 108/56 94 09/23/20 20:45 86 18 115/60 96 09/23/20 20:30 87 18 104/57 94 09/23/20 20:15 84 18 106/57 96 09/23/20 20:00 99.4 F 85 18 115/60 94 09/23/20 19:45 83 18 106/55 96 09/23/20 19:39 83 106/57 96 09/23/20 19:30 85 18 106/57 95 09/23/20 19:15 85 18 106/55 96 09/23/20 19:00 82 18 106/55 95 09/23/20 18:45 82 18 115/59 96 09/23/20 18:30 82 18 115/59 95 09/23/20 18:15 81 18 114/59 96 09/23/20 18:11 81 18 114/59 95 09/23/20 18:00 80 18 114/59 94 09/23/20 17:45 79 17 113/60 94 09/23/20 17:30 81 18 113/60 93 09/23/20 17:15 118/59 91 09/23/20 17:00 76 17 118/59 91 09/23/20 16:45 77 18 120/65 94 09/23/20 16:43 77 120/65 93 09/23/20 16:30 75 18 120/65 92 09/23/20 16:15 81 18 117/62 94 09/23/20 16:00 76 18 117/62 96 09/23/20 15:45 75 17 116/63 95 09/23/20 15:30 76 18 116/63 93 09/23/20 15:15 77 16 122/64 94 09/23/20 15:00 77 17 122/64 92 09/23/20 14:45 76 17 120/63 94 09/23/20 14:30 77 18 120/63 94 09/23/20 14:15 76 18 119/62 94 09/23/20 14:07 77 119/62 93 09/23/20 14:00 76 17 119/62 92 09/23/20 13:45 78 17 127/63 92 09/23/20 13:30 78 16 127/63 91 09/23/20 13:27 78 125/59 09/23/20 13:15 79 18 125/59 92 09/23/20 13:00 78 17 125/59 93 09/23/20 12:45 78 17 127/61 92 09/23/20 12:37 78 127/61 93 09/23/20 12:30 79 18 127/61 92 09/23/20 12:15 75 17 124/63 93 09/23/20 12:00 76 18 124/63 94 09/23/20 11:45 76 17 116/65 93 09/23/20 11:30 77 17 116/65 94 09/23/20 11:15 76 17 111/60 94 09/23/20 11:00 76 17 111/60 92 09/23/20 10:45 86 17 119/56 88 - Physical Examination Narrative exam: Full physical exam is deferred due to the patient's active COVID-19 positive status. General: Other (Unresponsive, on the vent) HEENT: Positive: Other (Pupils fixed) Neck: Positive: neck supple Neuro: Positive: Other (Patient is unresponsive, on the vent) Abdomen: Positive: Soft Skin: Positive: Clear Extremities: Absent: edema - Labs and Meds Cardiac Enzymes 09/23/20 Range/Units 10:03 Lactate Dehydrogenase 1592 H (91-180) units/L CBC 09/23/20 09/24/20 Range/Units 10:03 04:30 WBC 13.8 H 12.4 H (4.5-11.0) K/mm3 RBC 4.32 3.90 (3.65-5.03) M/mm3 Hgb 13.6 12.1 (10.1-14.3) gm/dl Hct 40.3 36.1 (30.3-42.9) % Plt Count 235 227 (140-440) K/mm3 Comprehensive Metabolic Panel 09/23/20 09/24/20 Range/Units 10:03 04:30 Sodium 141 D 142 (137-145) mmol/L Potassium 4.2 4.4 (3.6-5.0) mmol/L Chloride 105.1 105.0 (98-107) mmol/L Carbon Dioxide 25 D 30 (22-30) mmol/L BUN 26 H 25 H (7-17) mg/dL Creatinine 0.7 0.7 (0.6-1.2) mg/dL Glucose 271 H 337 H (65-100) mg/dL Calcium 8.2 L D 8.0 L (8.4-10.2) mg/dL - Allied health notes Allied health notes reviewed: nursing
[2020-09-24] MEDS ORDERED: TOCILIZUMAB 648 MG in SODIUM CHLORIDE 0.9% 100 ML IV ONE (12:00)
--- NOTE | 2020-09-24 12:20 | Progress Note ---
Assessment and Plan Acute toxic metabolic encephalopathy Severe sepsis Community acquired pneumonia coronavirus-19 infection Acute hypoxemic respiratory failure Hyponatremia at presentation Diabetes, poorly controlled Lactic acidosis Urinary tract infection Tobacco use disorder - getting Actemra today - add doxazosin re: urinary retention - increase Lantus and SSI for tighter glycemic control - keep peep at 16 cm H2O - continue to wean supplemental oxygen for target O2 sat's > 92% acutely - continue care as below otherwise; - continue Daily SAT and SBT assessment as tolerated - VAP bundle addressed - continue lung protective strategies - continue bronchodilators with pulmonary hygiene per RT - wean per pulmonary driven protocols otherwise - continue accuchecks with glycemic control per SSI (While critically ill target blood glucose of 140-180 mg/dL; avoid hypoglycemia) - sedation prn for target RASS -1 to -2 - avoid nephrotoxins, renally dose all medications - continue to avoid benzodiazepine's, reduce the possibility of delirium - complete anti-infective's per ID rec's - prn analgesia per CPOT score - Maintenance of sleep-wake cycle, avoid delirium - continue enteral nutritional support at goal rate as tolerated - G.I. & VTE prophylaxis - PT/OT/ROM exercises - continue mobility protocols for pressure ulcer prophylaxis - Monitor hemodynamics closely - continue other care per attending / other consultants - discharge planning ongoing concurrently COVID SPECIFIC INTERVENTIONS - continue contact and airborne isolation - Remdesivir as per ID/Pulmonary developed protocols (ordered) - continue systemic steroids for severe COVID-19 infection - follow repeat COVID tests results - zinc and vitamin C supplementation - Monitor inflammatory markers per facility protocol - ferritin, D-dimer, CRP - therapeutic anticoagulation per system Protocol based on d-dimer and clinical considerations (not indicated) .... Re-evaluate in am & prn CONDITION: CRITICAL PROGNOSIS: GUARDED CODE STATUS: FULL CODE The high probability of a clinically significant, sudden or life-threatening deterioration of the [respiratory, cardiovascular & neurologic] system(s) required my full and direct attention, intervention and personal management. The aggregate critical care time was [34] minutes without overlap. Time includes spent on; [x] Data Review and interpretation [x] Patient assessment and monitoring of vital signs [x] Documentation [x] Medication orders and management Subjective Date of service: 09/24/20 Principal diagnosis: Ac encephalopathy; CAP; Sepsis; COVID-19 infxn; Ac hypoxemic resp failure Interval history: Patient is seen today for: Acute toxic metabolic encephalopathy; CAP; Severe sepsis; COVID-19 infection; Acute hypoxemic respiratory failure UTI; DM II Seen and examined at bedside; 24hour events reviewed; nursing and respiratory care staff consulted; no adverse overnight events reported to me; resting in bed; remains on MVS; still with ARDS; moans during SAT's; blood sugars running high; no emesis or overt aspiration Objective Vital Signs - 12hr 09/24/20 09/24/20 09/24/20 00:30 00:45 01:00 Temperature Pulse Rate 86 88 85 Respiratory 17 17 18 Rate Blood Pressure 108/59 108/59 116/65 O2 Sat by Pulse 95 96 91 Oximetry 09/24/20 09/24/20 09/24/20 01:15 01:30 01:45 Temperature Pulse Rate 87 86 87 Respiratory 17 17 18 Rate Blood Pressure 108/59 115/62 116/65 O2 Sat by Pulse 94 92 95 Oximetry 09/24/20 09/24/20 09/24/20 02:00 02:15 02:30 Temperature Pulse Rate 86 84 86 Respiratory 17 18 18 Rate Blood Pressure 113/61 113/61 112/60 O2 Sat by Pulse 92 95 92 Oximetry 09/24/20 09/24/20 09/24/20 02:45 03:00 03:15 Temperature Pulse Rate 84 85 86 Respiratory 18 18 18 Rate Blood Pressure 112/60 115/59 115/59 O2 Sat by Pulse 95 92 95 Oximetry 09/24/20 09/24/20 09/24/20 03:30 03:45 04:00 Temperature 99.2 F Pulse Rate 88 87 84 Respiratory 18 16 19 Rate Blood Pressure 114/58 114/58 115/61 O2 Sat by Pulse 91 95 91 Oximetry 09/24/20 09/24/20 09/24/20 04:15 04:19 04:30 Temperature Pulse Rate 87 87 89 Respiratory 18 18 Rate Blood Pressure 115/61 115/61 107/56 O2 Sat by Pulse 93 93 92 Oximetry 09/24/20 09/24/20 09/24/20 04:45 05:00 05:15 Temperature Pulse Rate 86 86 85 Respiratory 18 18 18 Rate Blood Pressure 107/56 107/55 107/55 O2 Sat by Pulse 95 93 96 Oximetry 09/24/20 09/24/20 09/24/20 05:30 05:45 06:00 Temperature Pulse Rate 84 86 82 Respiratory 18 18 18 Rate Blood Pressure 108/57 108/57 106/55 O2 Sat by Pulse 94 96 94 Oximetry 09/24/20 09/24/20 09/24/20 06:15 06:26 06:30 Temperature Pulse Rate 82 84 84 Respiratory 18 18 Rate Blood Pressure 106/55 106/55 109/59 O2 Sat by Pulse 95 93 Oximetry 09/24/20 09/24/20 09:00 09:42 Temperature Pulse Rate 86 85 Respiratory Rate Blood Pressure 107/54 102/54 O2 Sat by Pulse 93 Oximetry Constitutional: appears uncomfortable, other (middle aged female with mildly increased respiratory effort at rest on MVS) Eyes: non-icteric ENT: oropharynx moist, other (ETT 26 cm JOSHUA) Neck: supple, no lymphadenopathy Effort: mildly labored Ascultation: Bilateral: diminished breath sounds, rhonchi Percussion: Bilateral: not dull Cardiovascular: regular rate and rhythm Gastrointestinal: normoactive bowel sounds, soft, non-tender, non-distended (protuberant) Integumentary: normal Extremities: no cyanosis, no edema, pink and warm, pulses normal Neurologic: non-focal exam (grossly), pupils equal and round, motor strength normal and, unable to assess, other (sedated) Psychiatric: other (lethargic) CBC and BMP: 09/25/20 09:43 09/25/20 09:43 ABG, PT/INR, D-dimer: ABG ABG pH 7.344 (7.320-7.450) 09/24/20 04:00 POC ABG pCO2 55.6 mmHg (32.0-48.0) H 09/24/20 04:00 POC ABG pO2 75.6 mmHg (83-108) L 09/24/20 04:00 POC ABG HCO3 29.6 09/24/20 04:00 ABG O2 Saturation 95.1 (0-100) 09/24/20 04:00 PT/INR, D-dimer PT 20.0 Sec. (12.2-14.9) H 09/21/20 02:14 INR 1.65 (0.87-1.13) H 09/21/20 02:14 D-Dimer 2573.89 ng/mlDDU (0-234) H 09/23/20 10:03 Abnormal lab findings: Abnormal Labs 09/15/20 09/15/20 09/15/20 18:46 18:46 18:46 WBC Hgb 14.4 H MCH MCHC Lymph % (Auto) Lymph # (Auto) Seg Neutrophils % Seg Neutrophils # PT INR APTT D-Dimer Heparin Anti-Xa Level ABG pH POC ABG pCO2 POC ABG pO2 ABG Oxyhemoglobin ABG Sodium ABG Potassium ABG Chloride ABG Glucose Sodium 128 L Potassium 3.2 L Chloride 89.3 L Carbon Dioxide BUN Creatinine Glucose 388 H POC Glucose Lactic Acid Calcium 8.2 L Ferritin AST 69 H Ammonia Lactate Dehydrogenase Total Creatine Kinase CK-MB (CK-2) Troponin T C-Reactive Protein Albumin 3.6 L Triglycerides HDL Cholesterol TSH 34.670 H Free T4 Arterial Blood Glucose Arterial Blood Ionized Calcium Urine WBC (Auto) Salicylates Acetaminophen Coronavirus (PCR) 09/15/20 09/15/20 09/15/20 18:46 18:46 18:46 WBC Hgb MCH MCHC Lymph % (Auto) Lymph # (Auto) Seg Neutrophils % Seg Neutrophils # PT INR APTT D-Dimer Heparin Anti-Xa Level ABG pH POC ABG pCO2 POC ABG pO2 ABG Oxyhemoglobin ABG Sodium ABG Potassium ABG Chloride ABG Glucose Sodium Potassium Chloride Carbon Dioxide BUN Creatinine Glucose POC Glucose Lactic Acid Calcium Ferritin AST Ammonia 23.0 L Lactate Dehydrogenase Total Creatine Kinase CK-MB (CK-2) Troponin T C-Reactive Protein Albumin Triglycerides HDL Cholesterol TSH Free T4 Arterial Blood Glucose Arterial Blood Ionized Calcium Urine WBC (Auto) Salicylates < 0.3 L Acetaminophen 9.1 L Coronavirus (PCR) 09/15/20 09/15/20 09/15/20 19:38 19:40 19:43 WBC Hgb MCH MCHC Lymph % (Auto) Lymph # (Auto) Seg Neutrophils % Seg Neutrophils # PT INR APTT D-Dimer Heparin Anti-Xa Level ABG pH POC ABG pCO2 POC ABG pO2 ABG Oxyhemoglobin ABG Sodium ABG Potassium ABG Chloride ABG Glucose Sodium Potassium Chloride Carbon Dioxide BUN Creatinine Glucose POC Glucose 398 H Lactic Acid 2.70 H* Calcium Ferritin AST Ammonia Lactate Dehydrogenase Total Creatine Kinase CK-MB (CK-2) Troponin T C-Reactive Protein Albumin Triglycerides HDL Cholesterol TSH Free T4 0.10 L Arterial Blood Glucose Arterial Blood Ionized Calcium Urine WBC (Auto) Salicylates Acetaminophen Coronavirus (PCR) 09/15/20 09/15/20 09/16/20 20:02 Unknown 04:47 WBC Hgb 14.8 H MCH 33 H MCHC 36 H Lymph % (Auto) 7.3 L Lymph # (Auto) 0.8 L Seg Neutrophils % 85.7 H Seg Neutrophils # 8.9 H PT INR APTT D-Dimer Heparin Anti-Xa Level ABG pH POC ABG pCO2 31.1 L POC ABG pO2 46.9 L ABG Oxyhemoglobin 82.8 L ABG Sodium 129.8 L ABG Potassium 3.1 L ABG Chloride ABG Glucose 374 H Sodium Potassium Chloride Carbon Dioxide BUN Creatinine Glucose POC Glucose Lactic Acid Calcium Ferritin AST Ammonia Lactate Dehydrogenase Total Creatine Kinase CK-MB (CK-2) Troponin T C-Reactive Protein Albumin Triglycerides HDL Cholesterol TSH Free T4 Arterial Blood Glucose 374 H Arterial Blood Ionized Calcium Urine WBC (Auto) > 182.0 H Salicylates Acetaminophen Coronavirus (PCR) 09/16/20 09/16/20 09/16/20 04:47 07:20 08:00 WBC Hgb MCH MCHC Lymph % (Auto) Lymph # (Auto) Seg Neutrophils % Seg Neutrophils # PT INR APTT D-Dimer Heparin Anti-Xa Level ABG pH POC ABG pCO2 POC ABG pO2 ABG Oxyhemoglobin ABG Sodium ABG Potassium ABG Chloride ABG Glucose Sodium 135 L D Potassium Chloride 94.1 L Carbon Dioxide BUN Creatinine Glucose 418 H POC Glucose 403 H Lactic Acid Calcium 8.3 L Ferritin AST Ammonia Lactate Dehydrogenase Total Creatine Kinase CK-MB (CK-2) Troponin T C-Reactive Protein Albumin Triglycerides HDL Cholesterol TSH Free T4 Arterial Blood Glucose Arterial Blood Ionized Calcium Urine WBC (Auto) Salicylates Acetaminophen Coronavirus (PCR) Positive A 09/16/20 09/16/20 09/16/20 11:43 16:17 21:38 WBC Hgb MCH MCHC Lymph % (Auto) Lymph # (Auto) Seg Neutrophils % Seg Neutrophils # PT INR APTT D-Dimer 702.65 H Heparin Anti-Xa Level ABG pH POC ABG pCO2 POC ABG pO2 ABG Oxyhemoglobin ABG Sodium ABG Potassium ABG Chloride ABG Glucose Sodium Potassium Chloride Carbon Dioxide BUN Creatinine Glucose POC Glucose 417 H 353 H Lactic Acid Calcium Ferritin AST Ammonia Lactate Dehydrogenase Total Creatine Kinase CK-MB (CK-2) Troponin T C-Reactive Protein Albumin Triglycerides HDL Cholesterol TSH Free T4 Arterial Blood Glucose Arterial Blood Ionized Calcium Urine WBC (Auto) Salicylates Acetaminophen Coronavirus (PCR) 09/16/20 09/16/20 09/16/20 21:38 21:38 21:38 WBC Hgb MCH MCHC Lymph % (Auto) Lymph # (Auto) Seg Neutrophils % Seg Neutrophils # PT INR APTT D-Dimer Heparin Anti-Xa Level ABG pH POC ABG pCO2 POC ABG pO2 ABG Oxyhemoglobin ABG Sodium ABG Potassium ABG Chloride ABG Glucose Sodium Potassium Chloride Carbon Dioxide BUN Creatinine Glucose POC Glucose Lactic Acid Calcium Ferritin 1089.0 H AST Ammonia Lactate Dehydrogenase 722 H Total Creatine Kinase CK-MB (CK-2) Troponin T C-Reactive Protein 6.80 H Albumin Triglycerides HDL Cholesterol TSH Free T4 Arterial Blood Glucose Arterial Blood Ionized Calcium Urine WBC (Auto) Salicylates Acetaminophen 5.0 L Coronavirus (PCR) 09/16/20 09/16/20 09/17/20 21:38 22:24 04:59 WBC Hgb MCH MCHC Lymph % (Auto) Lymph # (Auto) Seg Neutrophils % Seg Neutrophils # PT INR APTT D-Dimer Heparin Anti-Xa Level ABG pH POC ABG pCO2 POC ABG pO2 ABG Oxyhemoglobin ABG Sodium ABG Potassium ABG Chloride ABG Glucose Sodium 134 L 135 L Potassium 3.5 L 3.0 L Chloride 95.1 L 97.2 L Carbon Dioxide BUN Creatinine Glucose 288 H 149 H POC Glucose 307 H Lactic Acid Calcium 8.2 L Ferritin AST 43 H 49 H Ammonia Lactate Dehydrogenase Total Creatine Kinase CK-MB (CK-2) Troponin T C-Reactive Protein Albumin 3.7 L 3.3 L Triglycerides HDL Cholesterol TSH Free T4 Arterial Blood Glucose Arterial Blood Ionized Calcium Urine WBC (Auto) Salicylates Acetaminophen Coronavirus (PCR) 09/17/20 09/17/20 09/17/20 12:25 16:57 21:30 WBC Hgb MCH MCHC Lymph % (Auto) Lymph # (Auto) Seg Neutrophils % Seg Neutrophils # PT INR APTT D-Dimer Heparin Anti-Xa Level ABG pH POC ABG pCO2 POC ABG pO2 ABG Oxyhemoglobin ABG Sodium ABG Potassium ABG Chloride ABG Glucose Sodium Potassium Chloride Carbon Dioxide BUN Creatinine Glucose POC Glucose 199 H 313 H 304 H Lactic Acid Calcium Ferritin AST Ammonia Lactate Dehydrogenase Total Creatine Kinase CK-MB (CK-2) Troponin T C-Reactive Protein Albumin Triglycerides HDL Cholesterol TSH Free T4 Arterial Blood Glucose Arterial Blood Ionized Calcium Urine WBC (Auto) Salicylates Acetaminophen Coronavirus (PCR) 09/18/20 09/18/20 09/18/20 08:01 08:05 12:36 WBC Hgb MCH MCHC Lymph % (Auto) Lymph # (Auto) Seg Neutrophils % Seg Neutrophils # PT INR APTT D-Dimer Heparin Anti-Xa Level ABG pH POC ABG pCO2 POC ABG pO2 ABG Oxyhemoglobin ABG Sodium ABG Potassium ABG Chloride ABG Glucose Sodium Potassium 3.1 L Chloride Carbon Dioxide BUN Creatinine Glucose 112 H POC Glucose 125 H 159 H Lactic Acid Calcium 8.3 L Ferritin AST 47 H Ammonia Lactate Dehydrogenase Total Creatine Kinase CK-MB (CK-2) Troponin T C-Reactive Protein Albumin 3.3 L Triglycerides HDL Cholesterol TSH Free T4 Arterial Blood Glucose Arterial Blood Ionized Calcium Urine WBC (Auto) Salicylates Acetaminophen Coronavirus (PCR) 09/18/20 09/18/20 09/19/20 16:57 21:40 06:10 WBC Hgb MCH MCHC Lymph % (Auto) Lymph # (Auto) Seg Neutrophils % Seg Neutrophils # PT INR APTT D-Dimer Heparin Anti-Xa Level ABG pH POC ABG pCO2 POC ABG pO2 ABG Oxyhemoglobin ABG Sodium ABG Potassium ABG Chloride ABG Glucose Sodium Potassium 2.8 L* Chloride 97.7 L Carbon Dioxide BUN Creatinine 0.4 L Glucose 146 H POC Glucose 180 H 225 H Lactic Acid Calcium 8.2 L Ferritin AST 45 H Ammonia Lactate Dehydrogenase Total Creatine Kinase CK-MB (CK-2) Troponin T C-Reactive Protein Albumin 3.5 L Triglycerides HDL Cholesterol TSH Free T4 Arterial Blood Glucose Arterial Blood Ionized Calcium Urine WBC (Auto) Salicylates Acetaminophen Coronavirus (PCR) 09/19/20 09/19/20 09/19/20 08:06 11:14 17:50 WBC Hgb MCH MCHC Lymph % (Auto) Lymph # (Auto) Seg Neutrophils % Seg Neutrophils # PT INR APTT D-Dimer Heparin Anti-Xa Level ABG pH POC ABG pCO2 POC ABG pO2 ABG Oxyhemoglobin ABG Sodium ABG Potassium ABG Chloride ABG Glucose Sodium Potassium Chloride Carbon Dioxide BUN Creatinine Glucose POC Glucose 175 H 210 H 291 H Lactic Acid Calcium Ferritin AST Ammonia Lactate Dehydrogenase Total Creatine Kinase CK-MB (CK-2) Troponin T C-Reactive Protein Albumin Triglycerides HDL Cholesterol TSH Free T4 Arterial Blood Glucose Arterial Blood Ionized Calcium Urine WBC (Auto) Salicylates Acetaminophen Coronavirus (PCR) 09/19/20 09/20/20 09/20/20 21:30 05:23 05:23 WBC Hgb MCH MCHC Lymph % (Auto) Lymph # (Auto) Seg Neutrophils % Seg Neutrophils # PT INR APTT D-Dimer Heparin Anti-Xa Level ABG pH POC ABG pCO2 POC ABG pO2 ABG Oxyhemoglobin ABG Sodium ABG Potassium ABG Chloride ABG Glucose Sodium 131 L Potassium 3.3 L D Chloride 95.4 L Carbon Dioxide 18 L BUN Creatinine 0.4 L Glucose 169 H POC Glucose 232 H Lactic Acid Calcium 8.3 L Ferritin 738.9 H AST Ammonia Lactate Dehydrogenase 882 H Total Creatine Kinase CK-MB (CK-2) Troponin T C-Reactive Protein 11.40 H Albumin Triglycerides HDL Cholesterol TSH Free T4 Arterial Blood Glucose Arterial Blood Ionized Calcium Urine WBC (Auto) Salicylates Acetaminophen Coronavirus (PCR) 09/20/20 09/20/20 09/20/20 05:23 06:50 10:46 WBC Hgb MCH MCHC Lymph % (Auto) Lymph # (Auto) Seg Neutrophils % Seg Neutrophils # PT INR APTT D-Dimer 4940.20 H Heparin Anti-Xa Level ABG pH 7.289 L POC ABG pCO2 POC ABG pO2 50.1 L ABG Oxyhemoglobin 80.8 L ABG Sodium 130.8 L ABG Potassium ABG Chloride 97.0 L ABG Glucose 275 H Sodium Potassium Chloride Carbon Dioxide BUN Creatinine Glucose POC Glucose 242 H Lactic Acid Calcium Ferritin AST Ammonia Lactate Dehydrogenase Total Creatine Kinase CK-MB (CK-2) Troponin T C-Reactive Protein Albumin Triglycerides HDL Cholesterol TSH Free T4 Arterial Blood Glucose 275 H Arterial Blood Ionized Calcium 4.2 L Urine WBC (Auto) Salicylates Acetaminophen Coronavirus (PCR) 09/20/20 09/20/20 09/20/20 11:58 16:30 16:41 WBC Hgb MCH MCHC Lymph % (Auto) Lymph # (Auto) Seg Neutrophils % Seg Neutrophils # PT INR APTT D-Dimer Heparin Anti-Xa Level ABG pH POC ABG pCO2 27.8 L POC ABG pO2 79.7 L ABG Oxyhemoglobin ABG Sodium 131.0 L ABG Potassium ABG Chloride ABG Glucose 297 H Sodium Potassium Chloride Carbon Dioxide BUN Creatinine Glucose POC Glucose 262 H 283 H Lactic Acid Calcium Ferritin AST Ammonia Lactate Dehydrogenase Total Creatine Kinase CK-MB (CK-2) Troponin T C-Reactive Protein Albumin Triglycerides HDL Cholesterol TSH Free T4 Arterial Blood Glucose 297 H Arterial Blood Ionized Calcium 4.3 L Urine WBC (Auto) Salicylates Acetaminophen Coronavirus (PCR) 09/20/20 09/20/20 09/21/20 17:26 21:29 00:46 WBC Hgb MCH MCHC Lymph % (Auto) Lymph # (Auto) Seg Neutrophils % Seg Neutrophils # PT INR APTT D-Dimer Heparin Anti-Xa Level ABG pH POC ABG pCO2 POC ABG pO2 ABG Oxyhemoglobin ABG Sodium ABG Potassium ABG Chloride ABG Glucose Sodium Potassium Chloride Carbon Dioxide BUN Creatinine Glucose POC Glucose 297 H 248 H Lactic Acid Calcium Ferritin AST Ammonia Lactate Dehydrogenase Total Creatine Kinase CK-MB (CK-2) Troponin T 0.444 H* C-Reactive Protein Albumin Triglycerides 156 H HDL Cholesterol 22 L TSH Free T4 Arterial Blood Glucose Arterial Blood Ionized Calcium Urine WBC (Auto) Salicylates Acetaminophen Coronavirus (PCR) 09/21/20 09/21/20 09/21/20 00:46 02:14 03:22 WBC Hgb MCH MCHC Lymph % (Auto) Lymph # (Auto) Seg Neutrophils % Seg Neutrophils # PT 20.0 H INR 1.65 H APTT 38.2 H D-Dimer Heparin Anti-Xa Level ABG pH POC ABG pCO2 POC ABG pO2 70.3 L ABG Oxyhemoglobin 92.2 L ABG Sodium 134.2 L ABG Potassium ABG Chloride ABG Glucose 187 H Sodium 134 L Potassium Chloride Carbon Dioxide 18 L BUN 23 H Creatinine Glucose 198 H POC Glucose Lactic Acid Calcium 6.7 L D Ferritin AST Ammonia Lactate Dehydrogenase Total Creatine Kinase CK-MB (CK-2) Troponin T C-Reactive Protein Albumin Triglycerides HDL Cholesterol TSH Free T4 Arterial Blood Glucose 187 H Arterial Blood Ionized Calcium 4.2 L Urine WBC (Auto) Salicylates Acetaminophen Coronavirus (PCR) 09/21/20 09/21/20 09/21/20 07:26 08:15 11:21 WBC Hgb MCH MCHC Lymph % (Auto) Lymph # (Auto) Seg Neutrophils % Seg Neutrophils # PT INR APTT D-Dimer Heparin Anti-Xa Level 0.97 H ABG pH POC ABG pCO2 POC ABG pO2 ABG Oxyhemoglobin ABG Sodium ABG Potassium ABG Chloride ABG Glucose Sodium Potassium Chloride Carbon Dioxide BUN Creatinine Glucose POC Glucose 157 H 153 H Lactic Acid Calcium Ferritin AST Ammonia Lactate Dehydrogenase Total Creatine Kinase CK-MB (CK-2) Troponin T C-Reactive Protein Albumin Triglycerides HDL Cholesterol TSH Free T4 Arterial Blood Glucose Arterial Blood Ionized Calcium Urine WBC (Auto) Salicylates Acetaminophen Coronavirus (PCR) 09/21/20 09/21/20 09/21/20 15:16 15:59 18:58 WBC Hgb MCH MCHC Lymph % (Auto) Lymph # (Auto) Seg Neutrophils % Seg Neutrophils # PT INR APTT D-Dimer Heparin Anti-Xa Level 0.90 H ABG pH POC ABG pCO2 POC ABG pO2 ABG Oxyhemoglobin ABG Sodium ABG Potassium ABG Chloride ABG Glucose Sodium Potassium Chloride Carbon Dioxide BUN Creatinine Glucose POC Glucose 192 H Lactic Acid Calcium Ferritin AST Ammonia Lactate Dehydrogenase Total Creatine Kinase CK-MB (CK-2) Troponin T C-Reactive Protein 8.40 H Albumin Triglycerides HDL Cholesterol TSH Free T4 Arterial Blood Glucose Arterial Blood Ionized Calcium Urine WBC (Auto) Salicylates Acetaminophen Coronavirus (PCR) 09/21/20 09/21/20 09/22/20 18:58 21:14 01:33 WBC Hgb MCH MCHC Lymph % (Auto) Lymph # (Auto) Seg Neutrophils % Seg Neutrophils # PT INR APTT D-Dimer Heparin Anti-Xa Level 0.78 H ABG pH POC ABG pCO2 POC ABG pO2 ABG Oxyhemoglobin ABG Sodium ABG Potassium ABG Chloride ABG Glucose Sodium Potassium Chloride Carbon Dioxide BUN Creatinine Glucose POC Glucose 172 H Lactic Acid Calcium Ferritin AST Ammonia Lactate Dehydrogenase Total Creatine Kinase 536 H CK-MB (CK-2) 17.8 H Troponin T 0.793 H* D C-Reactive Protein Albumin Triglycerides HDL Cholesterol TSH Free T4 Arterial Blood Glucose Arterial Blood Ionized Calcium Urine WBC (Auto) Salicylates Acetaminophen Coronavirus (PCR) 09/22/20 09/22/20 09/22/20 04:15 07:15 10:22 WBC Hgb MCH MCHC Lymph % (Auto) Lymph # (Auto) Seg Neutrophils % Seg Neutrophils # PT INR APTT D-Dimer Heparin Anti-Xa Level ABG pH POC ABG pCO2 POC ABG pO2 ABG Oxyhemoglobin ABG Sodium 132.9 L ABG Potassium ABG Chloride ABG Glucose 155 H Sodium Potassium Chloride Carbon Dioxide BUN Creatinine Glucose POC Glucose 159 H Lactic Acid Calcium Ferritin AST Ammonia Lactate Dehydrogenase Total Creatine Kinase 1159 H CK-MB (CK-2) 14.4 H Troponin T 0.501 H* D C-Reactive Protein Albumin Triglycerides HDL Cholesterol TSH Free T4 Arterial Blood Glucose 155 H Arterial Blood Ionized Calcium 4.3 L Urine WBC (Auto) Salicylates Acetaminophen Coronavirus (PCR) 09/22/20 09/22/20 09/22/20 11:34 16:35 17:44 WBC Hgb MCH MCHC Lymph % (Auto) Lymph # (Auto) Seg Neutrophils % Seg Neutrophils # PT INR APTT D-Dimer Heparin Anti-Xa Level 0.15 L ABG pH POC ABG pCO2 POC ABG pO2 ABG Oxyhemoglobin ABG Sodium ABG Potassium ABG Chloride ABG Glucose Sodium Potassium Chloride Carbon Dioxide BUN Creatinine Glucose POC Glucose 206 H 273 H Lactic Acid Calcium Ferritin AST Ammonia Lactate Dehydrogenase Total Creatine Kinase CK-MB (CK-2) Troponin T C-Reactive Protein Albumin Triglycerides HDL Cholesterol TSH Free T4 Arterial Blood Glucose Arterial Blood Ionized Calcium Urine WBC (Auto) Salicylates Acetaminophen Coronavirus (PCR) 09/23/20 09/23/20 09/23/20 00:32 04:00 05:11 WBC Hgb MCH MCHC Lymph % (Auto) Lymph # (Auto) Seg Neutrophils % Seg Neutrophils # PT INR APTT D-Dimer Heparin Anti-Xa Level ABG pH POC ABG pCO2 POC ABG pO2 75.7 L ABG Oxyhemoglobin ABG Sodium 135.0 L ABG Potassium ABG Chloride ABG Glucose 237 H Sodium Potassium Chloride Carbon Dioxide BUN Creatinine Glucose POC Glucose 287 H 210 H Lactic Acid Calcium Ferritin AST Ammonia Lactate Dehydrogenase Total Creatine Kinase CK-MB (CK-2) Troponin T C-Reactive Protein Albumin Triglycerides HDL Cholesterol TSH Free T4 Arterial Blood Glucose 237 H Arterial Blood Ionized Calcium 4.5 L Urine WBC (Auto) Salicylates Acetaminophen Coronavirus (PCR) 09/23/20 09/23/20 09/23/20 08:02 10:03 10:03 WBC 13.8 H Hgb MCH MCHC Lymph % (Auto) Lymph # (Auto) Seg Neutrophils % Seg Neutrophils # PT INR APTT D-Dimer 2573.89 H Heparin Anti-Xa Level ABG pH POC ABG pCO2 POC ABG pO2 ABG Oxyhemoglobin ABG Sodium ABG Potassium ABG Chloride ABG Glucose Sodium Potassium Chloride Carbon Dioxide BUN Creatinine Glucose POC Glucose 268 H Lactic Acid Calcium Ferritin AST Ammonia Lactate Dehydrogenase Total Creatine Kinase CK-MB (CK-2) Troponin T C-Reactive Protein Albumin Triglycerides HDL Cholesterol TSH Free T4 Arterial Blood Glucose Arterial Blood Ionized Calcium Urine WBC (Auto) Salicylates Acetaminophen Coronavirus (PCR) 09/23/20 09/23/20 09/23/20 10:03 10:03 10:03 WBC Hgb MCH MCHC Lymph % (Auto) Lymph # (Auto) Seg Neutrophils % Seg Neutrophils # PT INR APTT D-Dimer Heparin Anti-Xa Level 0.12 L ABG pH POC ABG pCO2 POC ABG pO2 ABG Oxyhemoglobin ABG Sodium ABG Potassium ABG Chloride ABG Glucose Sodium Potassium Chloride Carbon Dioxide BUN 26 H Creatinine Glucose 271 H POC Glucose Lactic Acid Calcium 8.2 L D Ferritin 1084.0 H AST Ammonia Lactate Dehydrogenase 1592 H Total Creatine Kinase CK-MB (CK-2) Troponin T C-Reactive Protein 9.10 H Albumin Triglycerides HDL Cholesterol TSH Free T4 Arterial Blood Glucose Arterial Blood Ionized Calcium Urine WBC (Auto) Salicylates Acetaminophen Coronavirus (PCR) 09/23/20 09/23/20 09/23/20 12:17 18:30 20:01 WBC Hgb MCH MCHC Lymph % (Auto) Lymph # (Auto) Seg Neutrophils % Seg Neutrophils # PT INR APTT D-Dimer Heparin Anti-Xa Level 0.15 L ABG pH POC ABG pCO2 POC ABG pO2 ABG Oxyhemoglobin ABG Sodium ABG Potassium ABG Chloride ABG Glucose Sodium Potassium Chloride Carbon Dioxide BUN Creatinine Glucose POC Glucose 282 H 392 H Lactic Acid Calcium Ferritin AST Ammonia Lactate Dehydrogenase Total Creatine Kinase CK-MB (CK-2) Troponin T C-Reactive Protein Albumin Triglycerides HDL Cholesterol TSH Free T4 Arterial Blood Glucose Arterial Blood Ionized Calcium Urine WBC (Auto) Salicylates Acetaminophen Coronavirus (PCR) 09/23/20 09/23/20 09/24/20 21:08 23:58 04:00 WBC Hgb MCH MCHC Lymph % (Auto) Lymph # (Auto) Seg Neutrophils % Seg Neutrophils # PT INR APTT D-Dimer Heparin Anti-Xa Level ABG pH POC ABG pCO2 55.6 H POC ABG pO2 75.6 L ABG Oxyhemoglobin ABG Sodium 135.9 L ABG Potassium ABG Chloride ABG Glucose 330 H Sodium Potassium Chloride Carbon Dioxide BUN Creatinine Glucose POC Glucose 373 H 391 H Lactic Acid Calcium Ferritin AST Ammonia Lactate Dehydrogenase Total Creatine Kinase CK-MB (CK-2) Troponin T C-Reactive Protein Albumin Triglycerides HDL Cholesterol TSH Free T4 Arterial Blood Glucose 330 H Arterial Blood Ionized Calcium 4.4 L Urine WBC (Auto) Salicylates Acetaminophen Coronavirus (PCR) 09/24/20 09/24/20 09/24/20 04:30 04:30 05:04 WBC 12.4 H Hgb MCH MCHC Lymph % (Auto) Lymph # (Auto) Seg Neutrophils % Seg Neutrophils # PT INR APTT D-Dimer Heparin Anti-Xa Level ABG pH POC ABG pCO2 POC ABG pO2 ABG Oxyhemoglobin ABG Sodium ABG Potassium ABG Chloride ABG Glucose Sodium Potassium Chloride Carbon Dioxide BUN 25 H Creatinine Glucose 337 H POC Glucose 316 H Lactic Acid Calcium 8.0 L Ferritin AST Ammonia Lactate Dehydrogenase Total Creatine Kinase CK-MB (CK-2) Troponin T C-Reactive Protein Albumin Triglycerides HDL Cholesterol TSH Free T4 Arterial Blood Glucose Arterial Blood Ionized Calcium Urine WBC (Auto) Salicylates Acetaminophen Coronavirus (PCR) 09/24/20 11:41 WBC Hgb MCH MCHC Lymph % (Auto) Lymph # (Auto) Seg Neutrophils % Seg Neutrophils # PT INR APTT D-Dimer Heparin Anti-Xa Level ABG pH POC ABG pCO2 POC ABG pO2 ABG Oxyhemoglobin ABG Sodium ABG Potassium ABG Chloride ABG Glucose Sodium Potassium Chloride Carbon Dioxide BUN Creatinine Glucose POC Glucose 240 H Lactic Acid Calcium Ferritin AST Ammonia Lactate Dehydrogenase Total Creatine Kinase CK-MB (CK-2) Troponin T C-Reactive Protein Albumin Triglycerides HDL Cholesterol TSH Free T4 Arterial Blood Glucose Arterial Blood Ionized Calcium Urine WBC (Auto) Salicylates Acetaminophen Coronavirus (PCR) Chest x-ray: image reviewed (persistent bilateral pulmonary infiltrates) Allied health notes reviewed: nursing
--- NOTE | 2020-09-24 13:09 | XRay Report ---
ABDOMEN 1 VIEW(S) INDICATION / CLINICAL INFORMATION: NGT placement. COMPARISON: 09/22/2020 FINDINGS: TUBES / LINES: Nasogastric tube terminates in the antrum of the stomach in good position. BOWEL GAS PATTERN: No significant abnormality. FREE AIR / EXTRALUMINAL GAS: None seen. ADDITIONAL FINDINGS: No significant additional findings. IMPRESSION: No significant abnormality. Signer Name: Zak Lyles Jr, MD Signed: 09/24/2020 1:05 PM Workstation Name: [id number]
[2020-09-24] MEDS: HEPARIN/ 0.45% NACL DRIP 25,000 UNIT/500 ML BAG IV SCH (13:27)
--- NOTE | 2020-09-24 15:57 | Progress Note ---
Assessment and Plan Cultures: Blood culture no growth so far Covid PUI positive A/P: 54-year-old female past medical history bipolar, hypothyroidism, hyperten aubree, diabetes now with: #Acute hypoxic respiratory failure: Likely secondary to pneumonia, procalcitonin was normal. Now on the vent. Actemra 09/24/2020 #Covid pneumonia: PCR positive #Bilateral pneumonia #Drug overdose: With trazodone Recs: -Complete 5 days Remdesivir -Steroids per primary for 10 days -Actemra given today. Thank you for the consult, we will continue to follow. Dominique Patel MD [facility] O: [phone] F: [phone] Subjective Date of service: 09/24/20 Principal diagnosis: Ac encephalopathy; CAP; Sepsis; COVID-19 infxn; Ac hypoxemic resp failure Interval history: Afebrile, white count 12.4. Imaging personally reviewed: Chest x-ray: Persistent patchy multifocal airspace disease Objective - Exam Narrative Exam: Physical exam deferred to reduce risk of transmission of COVID-19. Please refer to primary team's note. - Constitutional Vitals: Vital Signs Temp Pulse Resp BP Pulse Ox 99.2 F 74 18 114/62 95 09/24/20 04:00 09/24/20 13:00 09/24/20 06:30 09/24/20 13:00 09/24/20 13:00 Temperature -Last 24 Hours Temperature 99.2 F Temperature 100.0 F Temperature 99.4 F - Labs CBC & Chem 7: 09/24/20 04:30 09/24/20 04:30 Labs: Abnormal lab results 09/23/20 09/23/20 09/23/20 Range/Units 18:30 20:01 21:08 WBC (4.5-11.0) K/mm3 Heparin Anti-Xa Level 0.15 L (0.3-0.7) U.I./ml POC ABG pCO2 (32.0-48.0) mmHg POC ABG pO2 (83-108) mmHg ABG Sodium (136.0-145.0) mmol/L ABG Glucose (65-95) mg/dL BUN (7-17) mg/dL Glucose (65-100) mg/dL POC Glucose 392 H 373 H (70-105) mg/dL Calcium (8.4-10.2) mg/dL Arterial Blood Glucose (65-95) mg/dL Arterial Blood Ionized Calcium (4.6-5.3) mg/dL 09/23/20 09/24/20 09/24/20 Range/Units 23:58 04:00 04:30 WBC 12.4 H (4.5-11.0) K/mm3 Heparin Anti-Xa Level (0.3-0.7) U.I./ml POC ABG pCO2 55.6 H (32.0-48.0) mmHg POC ABG pO2 75.6 L (83-108) mmHg ABG Sodium 135.9 L (136.0-145.0) mmol/L ABG Glucose 330 H (65-95) mg/dL BUN (7-17) mg/dL Glucose (65-100) mg/dL POC Glucose 391 H (70-105) mg/dL Calcium (8.4-10.2) mg/dL Arterial Blood Glucose 330 H (65-95) mg/dL Arterial Blood Ionized Calcium 4.4 L (4.6-5.3) mg/dL 09/24/20 09/24/20 09/24/20 Range/Units 04:30 05:04 11:41 WBC (4.5-11.0) K/mm3 Heparin Anti-Xa Level (0.3-0.7) U.I./ml POC ABG pCO2 (32.0-48.0) mmHg POC ABG pO2 (83-108) mmHg ABG Sodium (136.0-145.0) mmol/L ABG Glucose (65-95) mg/dL BUN 25 H (7-17) mg/dL Glucose 337 H (65-100) mg/dL POC Glucose 316 H 240 H (70-105) mg/dL Calcium 8.0 L (8.4-10.2) mg/dL Arterial Blood Glucose (65-95) mg/dL Arterial Blood Ionized Calcium (4.6-5.3) mg/dL
--- NOTE | 2020-09-24 16:33 | Progress Note ---
Assessment and Plan Assessment and plan: This is a 54-year-old female with bipolar disorder, hypothyroidism, hypertension, diabetes mellitus admitted for acute hypoxic respiratory failure, COVID-19 pneumonia, NSTEMI Neuro: Acute metabolic encephalopathy, drug ingestion, h/o bipolar -Psych consult, appreciate recommendations -Zoloft -Patient follows commands, PERRL -Avoid delirium -Reorientation as needed -Sedated with fentanyl, goal RASS 0 to -1 Cardiology: NSTEMI, h/o HTN -Cardiology consulted, appreciate recommendations -Echocardiogram shows diastolic function normal, LVEF 50 to 55%, mild to moderate concentric LVH, mild AR, mild MR, trace TR, RVSP normal at 17 mmHg -Aspirin 162, Plavix 75, beta-genny, as needed nitroglycerin -Blood pressure monitoring per protocol -Heparin drip Respiratory: Acute hypoxic respiratory failure -On mechanical ventilation, wean as tolerated -CCM consulted, appreciate recommendations -VAP bundle -SPO2 monitoring -Serial CXR and ABGs -Current vent settings: PRVC tidal volume 450, rate 18, PEEP of 16, 90% -09/24 CXR reviewed -09/24 ABG 7.3/55.6/75.6/29 at 90% FiO2 GI: NAD -Nutrition consulted, appreciate recommendations -Tube feedings -Accu-Cheks every 6 -SSI -PPI -As needed MiraLAX, MOM : Urinary retention -Laura catheter replaced due to retention -Patient is on doxazosin Endo: Hypothyroidism, h/o DM -SSI -Accu-Cheks every 6 -Synthroid -Avoid hypoglycemia -Long-acting insulin Heme: Leukocytosis -Trend CBC -Transfuse for hemoglobin less than 7 -Systemic anticoagulation with heparin drip ID: COVID-19 pneumonia, UTI, sepsis -COVID-19 PCR + 09/16/2020 -Infectious disease consulted, appreciate recommendations -S/p remdesivir 5 days -Dexamethasone -09/24 Actemra -ABX completed -Contact/droplet precautions -Trend COVID-19 inflammatory markers The high probability of a clinically significant, sudden or life threatening deterioration of the [cardiorespiratory] system(s) required my full and direct attention, intervention and personal management. The aggregate critical care time was [60] minutes. This time is in addition to time spent performing reported procedures but includes the following: [x] Data Review and interpretation [x] Patient assessment and monitoring of vital signs [x] Documentation [x] Medication orders and management Disposition Plan: icu Total Time Spent with Patient (Minutes): 60 History Interval history: This is a 54-year-old female with bipolar disorder, hypothyroidism, hypertension, diabetes mellitus who presents to the emergency department via EMS after having being found on the floor with a generalized weakness vs syncope as the patient is in the case that she took some trazodone in order to get to sleep but cannot recall how many tablets she took her dosage. The final regimen patient was confused but arousable and responds to questions during her course of stay. In the emergency department she was found to be hypoxic upon arrival with O2 sat of 82% on room air and was placed on supplemental oxygen. Work-up in the emergency department included a CXR which revealed patchy parenchymal opacities, hyponatremia of 128, hypokalemia 3.2, elevated blood glucose of 388, lactic acidosis 2.7, elevated TSH at 34.67 and free T4 at 0.1. UA revealed UTI and tox screen revealed Tylenol level of 9.1. Patient was admitted to the hospital service with acute hypoxic respiratory failure secondary to pneumonia, hypokalemia, drug overdose and hyperglycemia. She was admitted as a COVID-19 PUI and infectious disease was also consulted. Psych was consulted for history of bipolar and possible drug overdose. Upon arrival to the ICU for progressive shortness of breath and progressively worsening CXR patient was noted to have an NSTEMI and cardiology was consulted. 09/16/2020: COVID-pneumonia. Coronavirus PCR positive, Patient on 5 L nasal cannula oxygen 09/17/2020: Covid pneumonia, Covid PCR positive yesterday. Patient on 5 L nasal c annula oxygen. ID consult appreciated, On remdesivir 09/18/2020: Still on 5 L nasal cannula oxygen, Saturations dropped to 88% on 3 L nasal cannula oxygen, Trying to wean but not possible, Continue remdesivir 09/20/2020: Patient is severely hypoxemic, requiring very high flow oxygen And intermittent BiPAP, x-ray chest worsening infiltrates. Patient is severely hypoxemic even on BiPAP, screen and cyclone repairer recommend. Transfer to ICU for close observation and possible intubation if no improvement . I called MATTYK patient's mother and discussed in detail patient's deterioration, severe hypoxemia, Transfer to ICU, possible intubation if needed she informed me that. Her recently, With Covid infection, and she herself is Covid positive. 09/21/2020; patient was intubated yesterday, On ventilatory support, Non-ST elevation GA, check echocardiogram, Cardiology evaluation noted and appreciated. Discussed with 09/22: Patient's PEEP was increased to 14. [facility], will order to remove her Laura catheter today and IV heparin was changed to IV Lovenox 09/23: Continue current medical management for NSTEMI, advance O ETT by 1 cm, increase PEEP and reduced FiO2 per [facility]. Patient had retention today and Laura will be replaced with 30 straight cath and patient will be started on Flomax. 09/24: Patient received Actemra today, [facility] added doxazosin, we increase Lantus and SSI today for tighter glycemic control. Hospitalist Physical - Constitutional Vitals: Temp Pulse Resp BP Pulse Ox 99.2 F 74 18 114/62 95 09/24/20 04:00 09/24/20 13:00 09/24/20 06:30 09/24/20 13:00 09/24/20 13:00 General appearance: Present: no acute distress, well-nourished, other (Intubated on vent, sedated) - EENT Eyes: Present: PERRL ENT: clear oral mucosa, dentition normal - Neck Neck: Present: normal ROM - Respiratory Respiratory effort: normal Respiratory: bilateral: diminished - Cardiovascular Rhythm: regular Heart Sounds: Present: S1 & S2. Absent: systolic murmur, diastolic murmur - Extremities Extremities: no ischemia, pulses intact, pulses symmetrical, No edema, normal temperature, normal color Peripheral Pulses: within normal limits - Abdominal General gastrointestinal: soft, non-tender, non-distended, normal bowel sounds - Integumentary Integumentary: Present: warm, dry - Psychiatric Psychiatric: other (sedated) - Neurologic Neurologic: other (sedated) - Allied Health Allied health notes reviewed: nursing, social work HEART Score - HEART Score Troponin: Troponin T 0.501 ng/mL (0.00-0.029) H* D 09/22/20 10:22 Results - Labs CBC & Chem 7: 09/24/20 04:30 09/24/20 04:30 Labs: Laboratory Last Values WBC 12.4 K/mm3 (4.5-11.0) H 09/24/20 04:30 RBC 3.90 M/mm3 (3.65-5.03) 09/24/20 04:30 Hgb 12.1 gm/dl (10.1-14.3) 09/24/20 04:30 Hct 36.1 % (30.3-42.9) 09/24/20 04:30 MCV 93 fl (79-97) 09/24/20 04:30 MCH 31 pg (28-32) 09/24/20 04:30 MCHC 34 % (30-34) 09/24/20 04:30 RDW 14.7 % (13.2-15.2) 09/24/20 04:30 Plt Count 227 K/mm3 (140-440) 09/24/20 04:30 Lymph % (Auto) 7.3 % (13.4-35.0) L 09/16/20 04:47 Jerauld % (Auto) 6.6 % (0.0-7.3) 09/16/20 04:47 Eos % (Auto) 0.0 % (0.0-4.3) 09/16/20 04:47 Baso % (Auto) 0.4 % (0.0-1.8) 09/16/20 04:47 Lymph # (Auto) 0.8 K/mm3 (1.2-5.4) L 09/16/20 04:47 Jerauld # (Auto) 0.7 K/mm3 (0.0-0.8) 09/16/20 04:47 Eos # (Auto) 0.0 K/mm3 (0.0-0.4) 09/16/20 04:47 Baso # (Auto) 0.0 K/mm3 (0.0-0.1) 09/16/20 04:47 Seg Neutrophils % 85.7 % (40.0-70.0) H 09/16/20 04:47 Seg Neutrophils # 8.9 K/mm3 (1.8-7.7) H 09/16/20 04:47 PT 20.0 Sec. (12.2-14.9) H 09/21/20 02:14 INR 1.65 (0.87-1.13) H 09/21/20 02:14 APTT 38.2 Sec. (24.2-36.6) H 09/21/20 02:14 D-Dimer 2573.89 ng/mlDDU (0-234) H 09/23/20 10:03 Heparin Anti-Xa Level 0.15 U.I./ml (0.3-0.7) L 09/23/20 20:01 ABG pH 7.344 (7.320-7.450) 09/24/20 04:00 POC ABG pCO2 55.6 mmHg (32.0-48.0) H 09/24/20 04:00 POC ABG pO2 75.6 mmHg (83-108) L 09/24/20 04:00 POC ABG HCO3 29.6 09/24/20 04:00 ABG O2 Saturation 95.1 (0-100) 09/24/20 04:00 POC ABG Base Excess 2.8 09/24/20 04:00 ABG Hemoglobin 12.6 (12.0-17.5) 09/24/20 04:00 ABG Oxyhemoglobin 94.1 (94-98) 09/24/20 04:00 ABG Methemoglobin 0.3 (0.0-1.5) 09/24/20 04:00 ABG Sodium 135.9 mmol/L (136.0-145.0) L 09/24/20 04:00 ABG Potassium 4.2 mmol/L (3.40-4.50) 09/24/20 04:00 ABG Chloride 105.0 mmol/L (98-107) 09/24/20 04:00 ABG Glucose 330 mg/dL (65-95) H 09/24/20 04:00 VBG pH 7.368 (7.320-7.420) 09/15/20 18:46 Carboxyhemoglobin 0.8 (0.5-1.5) 09/24/20 04:00 FiO2 % 90.0 09/24/20 04:00 Sodium 142 mmol/L (137-145) 09/24/20 04:30 Potassium 4.4 mmol/L (3.6-5.0) 09/24/20 04:30 Chloride 105.0 mmol/L (98-107) 09/24/20 04:30 Carbon Dioxide 30 mmol/L (22-30) 09/24/20 04:30 Anion Gap 11 mmol/L 09/24/20 04:30 BUN 25 mg/dL (7-17) H 09/24/20 04:30 Creatinine 0.7 mg/dL (0.6-1.2) 09/24/20 04:30 Estimated GFR > 60 ml/min 09/24/20 04:30 BUN/Creatinine Ratio 36 % 09/24/20 04:30 Glucose 337 mg/dL (65-100) H 09/24/20 04:30 POC Glucose 240 mg/dL (70-105) H 09/24/20 11:41 Lactic Acid 1.80 mmol/L (0.7-2.0) 09/17/20 04:59 Calcium 8.0 mg/dL (8.4-10.2) L 09/24/20 04:30 Magnesium 1.70 mg/dL (1.7-2.3) 09/21/20 00:46 Ferritin 1084.0 ng/mL (10.0-200.0) H 09/23/20 10:03 Total Bilirubin 0.80 mg/dL (0.1-1.2) 09/19/20 06:10 AST 45 units/L (5-40) H 09/19/20 06:10 ALT 35 units/L (7-56) 09/19/20 06:10 Alkaline Phosphatase 108 units/L (35-129) 09/19/20 06:10 Ammonia 23.0 umol/L (25-60) L 09/15/20 18:46 Lactate Dehydrogenase 1592 units/L (91-180) H 09/23/20 10:03 Total Creatine Kinase 1159 units/L (30-135) H 09/22/20 10:22 CK-MB (CK-2) 14.4 ng/mL (0.0-4.0) H 09/22/20 10:22 CK-MB (CK-2) Rel Index 1.2 (0-4) 09/22/20 10:22 Troponin T 0.501 ng/mL (0.00-0.029) H* D 09/22/20 10:22 C-Reactive Protein 9.10 mg/dL (0.00-1.30) H 09/23/20 10:03 Total Protein 6.6 g/dL (6.3-8.2) 09/19/20 06:10 Albumin 3.5 g/dL (3.9-5) L 09/19/20 06:10 Albumin/Globulin Ratio 1.1 % 09/19/20 06:10 Triglycerides 156 mg/dL (2-149) H 09/21/20 00:46 Cholesterol 139 mg/dL (50-199) 09/21/20 00:46 LDL Cholesterol Direct 85 mg/dL (50-130) 09/21/20 00:46 HDL Cholesterol 22 mg/dL (40-59) L 09/21/20 00:46 Cholesterol/HDL Ratio 6.31 % 09/21/20 00:46 Procalcitonin 0.05 ng/mL (<0.15) 09/17/20 04:59 TSH 34.670 mlU/mL (0.270-4.200) H 09/15/20 18:46 Free T4 0.10 ng/dL (0.76-1.46) L 09/15/20 19:43 Arterial Blood Glucose 330 mg/dL (65-95) H 09/24/20 04:00 Arterial Blood Ionized Calcium 4.4 mg/dL (4.6-5.3) L 09/24/20 04:00 Urine Color Yellow (Yellow) 09/15/20 Unknown Urine Turbidity Cloudy (Clear) 09/15/20 Unknown Urine pH 7.0 (5.0-7.0) 09/15/20 Unknown Ur Specific Rosebud 1.017 (1.003-1.030) 09/15/20 Unknown Urine Protein 100 mg/dl mg/dL (Negative) 09/15/20 Unknown Urine Glucose (UA) >=500 mg/dL (Negative) 09/15/20 Unknown Urine Ketones 20 mg/dL (Negative) 09/15/20 Unknown Urine Blood Lg (Negative) 09/15/20 Unknown Urine Nitrite Neg (Negative) 09/15/20 Unknown Urine Bilirubin Neg (Negative) 09/15/20 Unknown Urine Urobilinogen < 2.0 mg/dL (<2.0) 09/15/20 Unknown Ur Leukocyte Esterase Lg (Negative) 09/15/20 Unknown Urine WBC (Auto) > 182.0 /HPF (0.0-6.0) H 09/15/20 Unknown Urine RBC (Auto) 92.0 /HPF (0.0-6.0) 09/15/20 Unknown U Epithel Cells (Auto) 4.0 /HPF (0-13.0) 09/15/20 Unknown Urine Bacteria (Auto) 3+ /HPF (Negative) 09/15/20 Unknown Urine WBC Clumps 2+ /HPF 09/15/20 Unknown Urine Yeast (Budding) 3+ /HPF 09/15/20 Unknown Salicylates < 0.3 mg/dL (2.8-20.0) L 09/15/20 18:46 Urine Opiates Screen Presumptive negative 09/15/20 Unknown Urine Methadone Screen Presumptive negative 09/15/20 Unknown Acetaminophen 5.0 ug/mL (10.0-30.0) L 09/16/20 21:38 Ur Barbiturates Screen Presumptive negative 09/15/20 Unknown Ur Phencyclidine Scrn Presumptive negative 09/15/20 Unknown Ur Amphetamines Screen Presumptive negative 09/15/20 Unknown U Benzodiazepines Scrn Presumptive negative 09/15/20 Unknown Urine Cocaine Screen Presumptive negative 09/15/20 Unknown U Marijuana (THC) Screen Presumptive negative 09/15/20 Unknown Drugs of Abuse Note Disclamer 09/15/20 Unknown Plasma/Serum Alcohol < 0.01 % (0-0.07) 09/15/20 18:46 Coronavirus (PCR) Positive (Negative) A 09/16/20 08:00 Laura/IV: Voiding Method Indwelling Catheter Active Medications - Current Medications Current Medications: Generic Name Dose Route Start Last Admin Trade Name Freq PRN Reason Stop Dose Admin Albuterol 2.5 mg 09/20/20 12:28 Albuterol 2.5 Mg/3 Ml Nebu IH Q4HRT PRN Shortness Of Breath Lipase/Protease/Amylase 1 each 09/22/20 08:06 Lipase 10,500/Protease 25,000/Amylase 43,750 (Units) Dr Young FEEDTUBE PRN PRN For Clogged Feeding Tube Ascorbic Acid 500 mg 09/22/20 22:00 09/24/20 09:31 Ascorbic Acid 500 Mg Tab PO 500 mg BID AMANDA Administration Aspirin 162 mg 09/21/20 15:00 09/24/20 09:31 Aspirin 81 Mg Tab Chew PO 162 mg QDAY AMANDA Administration Cholecalciferol 5,000 unit 09/23/20 10:00 09/24/20 09:31 Cholecalciferol (Vit D3) 5,000 Unit Tab PO 5,000 unit DAILY AMANDA Administration Clopidogrel Bisulfate 75 mg 09/22/20 10:00 09/24/20 09:31 Clopidogrel 75 Mg Tab PO 75 mg QDAY AMANDA Administration Dextrose 50 ml 09/16/20 21:24 Dextrose 50% In Water (25gm) 50 Ml Syringe IV Q30MIN PRN Hypoglycemia Protocol Doxazosin Mesylate 1 mg 09/24/20 22:00 Doxazosin 1 Mg Tab PO QHS [facility] Famotidine 20 mg 09/22/20 10:00 09/24/20 09:32 Famotidine 20 Mg Tab PO 20 mg BID AMANDA Administration Fentanyl 50 mcg 09/20/20 19:02 Fentanyl 100 Mcg/2 Ml Inj IV Q10MIN PRN ANALGESIA Heparin Sodium (Porcine) 3,100 unit 09/21/20 01:42 Heparin 10,000 Units/10 Ml Vial 40 unit/kg (3100 unit) IV Q6H PRN Anti-Xa Assay < 0.1 units/ml Hydrophilic Ointment 1 applic 09/20/20 19:02 Lip Therapy Vaseline TP Q2HR PRN Dry Lips Fentanyl Citrate 2,000 mcg in 100 mls @ 3.925 mls/hr 09/20/20 20:00 09/24/20 08:47 Fentanyl Drip Premix IV 1 mcg/kg/hr TITR AMANDA 3.925 mls/hr Administration Protocol 1 MCG/KG/HR Heparin Sodium/Sodium Chloride 25,000 unit in 500 mls @ 20 mls/hr 09/21/20 02:00 09/24/20 13:27 Heparin/ 0.45% Nacl-25,000 Unit/500 Ml IV 500 units/hr TITRATE AMANDA 10 mls/hr Administration Protocol 1,000 UNITS/HR Insulin Glargine 15 units 09/25/20 08:00 Insulin Glargine 100 Units/Ml SUB-Q QAMDIAB [facility] Insulin Human Regular 0 units 09/23/20 12:00 09/24/20 11:42 Insulin Regular, Human 100 Units/1 Ml SUB-Q 4 units Q6H AMANDA Administration Protocol Levothyroxine Sodium 125 mcg 09/18/20 06:00 09/24/20 06:59 Levothyroxine 125 Mcg Tab PO 125 mcg DAILY@0600 [facility] Administration Magnesium Hydroxide 30 ml 09/15/20 22:09 Magnesium Hydroxide (Mom) Oral Liqd Udc PO Q4H PRN Constipation Metoprolol Tartrate 2.5 mg 09/21/20 15:00 09/24/20 09:42 Metoprolol Tartrate 5 Mg/5 Ml Inj IV Not Given Q8HR AMANDA Multi-Ingred Cream/Lotion/Oil/Oint 1 applic 09/20/20 19:02 Mineral Oil/Petrolatum, White Ophth Oint 3.5 Gm OU Q4HR PRN Dry Eye(s) Naloxone HCl 0.1 mg 09/15/20 18:36 Naloxone 0.4 Mg/1 Ml Inj IV Q2MIN PRN Res Rate </= 8 or 02 SAT < 92% Nitroglycerin 0.5 inch 09/22/20 06:00 09/24/20 06:26 Nitroglycerin 2% Oint 1 Gm TP 0.5 inch BIDNTG AMANDA Administration Protocol Ondansetron HCl 4 mg 09/15/20 22:09 Ondansetron 4 Mg/2 Ml Inj IV Q8H PRN Nausea And Vomiting Sertraline HCl 25 mg 09/17/20 12:00 09/24/20 09:31 Sertraline 25 Mg Tab PO 25 mg QDAY AMANDA Administration Simple Syrup 15 ml 09/22/20 08:06 Simple Syrup 15 Ml FEEDTUBE PRN PRN Hypoglycemia Simple Syrup 30 ml 09/22/20 08:06 Simple Syrup 15 Ml FEEDTUBE PRN PRN Hypoglycemia Sodium Bicarbonate 325 mg 09/22/20 08:06 Sodium Bicarbonate 325 Mg Tab FEEDTUBE PRN PRN For Clogged Feeding Tube Sodium Chloride 10 ml 09/16/20 10:00 09/24/20 11:43 Sodium Chloride 0.9% 10 Ml Flush Syringe IV 10 ml BID AMANDA Administration Sodium Chloride 10 ml 09/15/20 22:09 Sodium Chloride 0.9% 10 Ml Flush Syringe IV PRN PRN LINE FLUSH Zinc Sulfate 220 mg 09/22/20 22:00 09/24/20 09:31 Zinc Sulfate 220 Mg Cap PO 220 mg BID AMANDA Administration Nutrition/Malnutrition Assess - Dietary Evaluation Nutrition/Malnutrition Findings: Nutrition Notes Start: 09/16/20 15:13 Freq: Status: Active Protocol: Document 09/24/20 11:28 (Rec: 09/24/20 11:33 RHEA [id number]) Nutrition Notes Initial or Follow up Reassessment Current Diagnosis Diabetes,Hypertension, Respiratory Failure Other Pertinent Diagnosis pneu, drug OD, COVID-19 Current Diet Vital AF 1.2 at 60 ml/hr Labs/Tests POC BG [phone] Pertinent Medications Humalin Decadron Height 5 ft 6 in Weight 78.5 kg Russell Body Weight (kg) 59.09 BMI 27.9 Weight Status Appropriate Subjective/Other Information F/u for TF tolerance. Pt tolerating at goal rate. Per ROW BOSS Azad, insulin will be increased. If BG remain high, will change TF. Percent of energy/protein needs met: 100%/100% Burn Absent Trauma Absent Current % PO Negligible Minimum of two criteria No physical signs of malnutrition #1 Nutrition Diagnosis Inadequate oral intake Diagnosis Progress(for reassessment Continues documentation) Is patient on ventilator? Yes Is Patient Ambulatory and/or Out of Bed No [facility] [phone] Calculation Used for Recommendations [facility] Additional Notes Protein: (1.2-2g/kg) 94-157g Fluid: 1 ml/kcal Nutrition Intervention Change Diet Order: Continue TF Nutrition Support: Vital AF 1.2 at 60 ml/hr Flush 75 ml q4h or per MD Kcal 1,728 Protein (gm) 108 Fluid (mL) 1,168 Goal #1 Meet at least 75% of energy and protein needs via TF Anticipated Discharge Needs: Unable to determine at this time Follow-Up By: 09/26/20 Additional Comments F/u: BG and stable TF
[2020-09-24] MEDS: SENNOSIDES ORAL LIQD 8.8 MG/5 ML ORAL LIQD PO SCH (21:56)
[2020-09-24] MEDS: DOXAZOSIN 1 MG TAB PO SCH (21:56)
[2020-09-25] MEDS: INSULIN REGULAR, HUMAN 100 UNITS/1 ML SUB-Q SCH ×4 (00:02→18:08)
[2020-09-25] MEDS ORDERED: SODIUM CHLORIDE 0.9% 500 ML 500 ML ONE (02:28)
[2020-09-25] MEDS ORDERED: SODIUM CHLORIDE 0.9% 500 ML IVPB IV PRN (02:30)
--- NOTE | 2020-09-25 03:30 | XRay Report ---
CHEST - 1 VIEW INDICATION: follow up respiratory failure COMPARISON: Yesterday FINDINGS: SUPPORT DEVICES: Stable support device positioning. HEART: Stable cardiomediastinal silhouette. LUNGS/PLEURA: Persistent moderate peripheral airspace disease in both lungs in the background of dif fuse interstitial prominence. ADDITIONAL FINDINGS: None. IMPRESSION: Lung findings have worsened since yesterday, previously mild and now moderate. Signer Name: Dale Naranjo MD Signed: 09/25/2020 3:26 AM Workstation Name: [id number]
[2020-09-25] MEDS: METOPROLOL TARTRATE 5 MG/5 ML INJ IV SCH ×3 (05:57→21:22)
[2020-09-25] MEDS: NITROGLYCERIN 2% OINT 1 GM TP SCH ×2 (05:59→13:30)
[2020-09-25] MEDS ORDERED: INSULIN GLARGINE 100 UNITS/ML SUB-Q SCH (08:00)
[2020-09-25] MEDS: FAMOTIDINE 20 MG TAB PO SCH ×2 (09:27→21:18)
[2020-09-25] MEDS: ASCORBIC ACID 500 MG TAB PO SCH ×2 (09:27→21:18)
[2020-09-25] MEDS: ASPIRIN 81 MG TAB CHEW PO SCH (09:27)
[2020-09-25] MEDS: CLOPIDOGREL 75 MG TAB PO SCH (09:30)
[2020-09-25] MEDS: ZINC SULFATE 220 MG CAP PO SCH ×2 (09:30→21:30)
[2020-09-25] MEDS: SERTRALINE 25 MG TAB PO SCH (09:31)
[2020-09-25] MEDS: LEVOTHYROXINE 125 MCG TAB PO SCH (09:31)
[2020-09-25] MEDS: fentaNYL DRIP Premix 2,000 MCG/100 ML BAG IV SCH (09:31)
[2020-09-25] MEDS: HEPARIN/ 0.45% NACL DRIP 25,000 UNIT/500 ML BAG IV SCH (09:32)
[2020-09-25 10:28] LABS: Hematocrit 35.1 % (30.3-42.9); Hemoglobin 11.7 gm/dl (10.1-14.3); Mean Corpuscular HGB Conc 33 % (30-34); Mean Corpuscular Volume 95 fl (79-97); Platelet Count 217 K/mm3 (140-440); Red Cell Distribution Width 15.4 % (13.2-15.2)
[2020-09-25 10:55] LABS: BUN/Creatinine Ratio 43; Blood Urea Nitrogen 26 mg/dL (7-17); Calcium 8.1 mg/dL (8.4-10.2); Hemolysis Index 3
--- NOTE | 2020-09-25 12:43 | Progress Note ---
Assessment and Plan Acute toxic metabolic encephalopathy Severe sepsis Community acquired pneumonia coronavirus-19 infection Acute hypoxemic respiratory failure Hyponatremia at presentation Diabetes, poorly controlled Lactic acidosis Urinary tract infection Tobacco use disorder - get lower extremity dopplers +/- resume full anticoagulation - increase Lantus for tighter glycemic control - continue doxazosin re: urinary retention - keep bryan catheter in place for now - increased peep to 18 cm H2O - continue to wean supplemental oxygen for target O2 sat's > 92% acutely - continue care as below otherwise; - continue Daily SAT and SBT assessment as tolerated - VAP bundle addressed - continue lung protective strategies - continue bronchodilators with pulmonary hygiene per RT - wean per pulmonary driven protocols otherwise - continue accuchecks with glycemic control per SSI (While critically ill target blood glucose of 140-180 mg/dL; avoid hypoglycemia) - sedation prn for target RASS -1 to -2 - avoid nephrotoxins, renally dose all medications - continue to avoid benzodiazepine's, reduce the possibility of delirium - complete anti-infective's per ID rec's - prn analgesia per CPOT score - Maintenance of sleep-wake cycle, avoid delirium - continue enteral nutritional support at goal rate as tolerated - G.I. & VTE prophylaxis - PT/OT/ROM exercises - continue mobility protocols for pressure ulcer prophylaxis - Monitor hemodynamics closely - continue other care per attending / other consultants - discharge planning ongoing concurrently COVID SPECIFIC INTERVENTIONS - continue contact and airborne isolation - Remdesivir as per ID/Pulmonary developed protocols (ordered) - continue systemic steroids for severe COVID-19 infection - follow repeat COVID tests results - zinc and vitamin C supplementation - Monitor inflammatory markers per facility protocol - ferritin, D-dimer, CRP - therapeutic anticoagulation per system Protocol based on d-dimer and clinical considerations (not indicated) .... Re-evaluate in am & prn CONDITION: CRITICAL PROGNOSIS: GUARDED CODE STATUS: FULL CODE The high probability of a clinically significant, sudden or life-threatening deterioration of the [respiratory, cardiovascular & neurologic] system(s) required my full and direct attention, intervention and personal management. The aggregate critical care time was [35] minutes without overlap. Time includes spent on; [x] Data Review and interpretation [x] Patient assessment and monitoring of vital signs [x] Documentation [x] Medication orders and management Subjective Date of service: 09/25/20 Principal diagnosis: Ac encephalopathy; CAP; Sepsis; COVID-19 infxn; Ac hypoxemic resp failure Interval history: Patient is seen today for: Acute toxic metabolic encephalopathy; CAP; Severe sepsis; COVID-19 infection; Acute hypoxemic respiratory failure UTI; DM II Seen and examined at bedside; 24hour events reviewed; nursing and respiratory care staff consulted; no adverse overnight events reported to me; resting in bed; remains on MVS; remains on full anticoagulation; no gross bleeding; no emesis or overt aspiration Objective Vital Signs - 12hr 09/25/20 09/25/20 09/25/20 00:45 01:00 01:15 Temperature 99.9 F H Pulse Rate 83 81 80 Respiratory 18 19 18 Rate Blood Pressure 127/68 122/69 127/68 O2 Sat by Pulse 94 93 94 Oximetry 09/25/20 09/25/20 09/25/20 01:30 01:45 02:00 Temperature Pulse Rate 79 79 77 Respiratory 18 18 18 Rate Blood Pressure 119/67 122/69 119/65 O2 Sat by Pulse 93 95 94 Oximetry 09/25/20 09/25/20 09/25/20 02:15 02:30 02:45 Temperature Pulse Rate 77 78 76 Respiratory 18 18 18 Rate Blood Pressure 119/67 123/66 119/65 O2 Sat by Pulse 96 95 95 Oximetry 09/25/20 09/25/20 09/25/20 03:00 03:15 03:30 Temperature Pulse Rate 82 78 78 Respiratory 18 18 18 Rate Blood Pressure 116/60 116/60 117/61 O2 Sat by Pulse 91 92 92 Oximetry 09/25/20 09/25/20 09/25/20 03:45 04:00 04:15 Temperature 98.6 F Pulse Rate 81 75 76 Respiratory 18 18 18 Rate Blood Pressure 117/61 106/58 106/58 O2 Sat by Pulse 93 93 94 Oximetry 09/25/20 09/25/20 09/25/20 04:30 04:45 05:00 Temperature Pulse Rate 77 73 73 Respiratory 17 18 18 Rate Blood Pressure 109/60 106/58 107/58 O2 Sat by Pulse 94 96 94 Oximetry 09/25/20 09/25/20 09/25/20 05:15 05:30 05:45 Temperature Pulse Rate 75 73 80 Respiratory 18 18 13 Rate Blood Pressure 109/60 107/57 107/58 O2 Sat by Pulse 95 94 96 Oximetry 09/25/20 09/25/2021 05:57 05:59 06:00 Temperature Pulse Rate 75 77 75 Respiratory 18 Rate Blood Pressure 107/57 107/57 108/63 O2 Sat by Pulse 90 Oximetry 09/25/20 09/25/20 09/25/20 06:15 06:30 06:45 Temperature Pulse Rate 69 70 68 Respiratory 18 18 18 Rate Blood Pressure 108/63 100/55 100/55 O2 Sat by Pulse 93 92 95 Oximetry 09/25/20 09/25/20 09/25/20 07:00 07:15 07:30 Temperature Pulse Rate 70 69 69 Respiratory 18 18 18 Rate Blood Pressure 107/61 107/61 107/58 O2 Sat by Pulse 94 95 95 Oximetry 09/25/20 09/25/20 09/25/20 07:45 08:00 08:15 Temperature 98.7 F Pulse Rate 70 69 70 Respiratory 18 18 18 Rate Blood Pressure 107/58 103/55 103/55 O2 Sat by Pulse 95 94 95 Oximetry 09/25/20 09/25/20 09/25/20 08:30 08:45 09:00 Temperature Pulse Rate 72 71 70 Respiratory 18 18 18 Rate Blood Pressure 99/57 99/57 107/55 O2 Sat by Pulse 92 93 93 Oximetry 09/25/20 09/25/20 09/25/20 09:15 09:30 09:45 Temperature Pulse Rate 70 74 72 Respiratory 18 18 16 Rate Blood Pressure 107/55 101/59 101/59 O2 Sat by Pulse 93 92 92 Oximetry 09/25/20 09/25/20 09/25/20 10:00 10:15 10:30 Temperature Pulse Rate 70 70 71 Respiratory 18 18 18 Rate Blood Pressure 100/52 100/52 110/45 O2 Sat by Pulse 92 93 93 Oximetry 09/25/20 09/25/20 09/25/20 10:45 11:00 11:15 Temperature Pulse Rate 70 69 71 Respiratory 18 18 18 Rate Blood Pressure 110/45 109/49 109/49 O2 Sat by Pulse 93 94 93 Oximetry 09/25/20 09/25/20 09/25/20 11:30 11:45 12:00 Temperature 98.0 F Pulse Rate 73 71 71 Respiratory 18 18 18 Rate Blood Pressure 112/53 112/53 107/49 O2 Sat by Pulse 93 93 91 Oximetry 09/25/20 12:15 Temperature Pulse Rate 73 Respiratory 18 Rate Blood Pressure 107/49 O2 Sat by Pulse 91 Oximetry Constitutional: appears uncomfortable, other (middle aged female with mildly increased respiratory effort at rest on MVS) Eyes: non-icteric ENT: oropharynx moist, other (ETT 26 cm JOSHUA) Neck: supple, no lymphadenopathy Effort: mildly labored Ascultation: Bilateral: diminished breath sounds, rhonchi Percussion: Bilateral: not dull Cardiovascular: regular rate and rhythm Gastrointestinal: normoactive bowel sounds, soft, non-tender, non-distended (protuberant) Integumentary: normal Extremities: no cyanosis, no edema, pink and warm, pulses normal Neurologic: non-focal exam (grossly), pupils equal and round, motor strength normal and, unable to assess, other (sedated) Psychiatric: other (lethargic) CBC and BMP: 09/26/20 02:23 09/26/20 02:23 ABG, PT/INR, D-dimer: ABG ABG pH 7.344 (7.320-7.450) 09/24/20 04:00 POC ABG pCO2 55.6 mmHg (32.0-48.0) H 09/24/20 04:00 POC ABG pO2 75.6 mmHg (83-108) L 09/24/20 04:00 POC ABG HCO3 29.6 09/24/20 04:00 ABG O2 Saturation 95.1 (0-100) 09/24/20 04:00 PT/INR, D-dimer PT 20.0 Sec. (12.2-14.9) H 09/21/20 02:14 INR 1.65 (0.87-1.13) H 09/21/20 02:14 D-Dimer 2573.89 ng/mlDDU (0-234) H 09/23/20 10:03 Abnormal lab findings: Abnormal Labs 09/15/20 09/15/20 09/15/20 18:46 18:46 18:46 WBC Hgb 14.4 H MCH MCHC RDW Lymph % (Auto) Lymph # (Auto) Seg Neutrophils % Seg Neutrophils # PT INR APTT D-Dimer Heparin Anti-Xa Level ABG pH POC ABG pCO2 POC ABG pO2 ABG Oxyhemoglobin ABG Sodium ABG Potassium ABG Chloride ABG Glucose Sodium 128 L Potassium 3.2 L Chloride 89.3 L Carbon Dioxide BUN Creatinine Glucose 388 H POC Glucose Lactic Acid Calcium 8.2 L Ferritin AST 69 H Ammonia Lactate Dehydrogenase Total Creatine Kinase CK-MB (CK-2) Troponin T C-Reactive Protein Albumin 3.6 L Triglycerides HDL Cholesterol TSH 34.670 H Free T4 Arterial Blood Glucose Arterial Blood Ionized Calcium Urine WBC (Auto) Salicylates Acetaminophen Coronavirus (PCR) 09/15/20 09/15/20 09/15/20 18:46 18:46 18:46 WBC Hgb MCH MCHC RDW Lymph % (Auto) Lymph # (Auto) Seg Neutrophils % Seg Neutrophils # PT INR APTT D-Dimer Heparin Anti-Xa Level ABG pH POC ABG pCO2 POC ABG pO2 ABG Oxyhemoglobin ABG Sodium ABG Potassium ABG Chloride ABG Glucose Sodium Potassium Chloride Carbon Dioxide BUN Creatinine Glucose POC Glucose Lactic Acid Calcium Ferritin AST Ammonia 23.0 L Lactate Dehydrogenase Total Creatine Kinase CK-MB (CK-2) Troponin T C-Reactive Protein Albumin Triglycerides HDL Cholesterol TSH Free T4 Arterial Blood Glucose Arterial Blood Ionized Calcium Urine WBC (Auto) Salicylates < 0.3 L Acetaminophen 9.1 L Coronavirus (PCR) 09/15/20 09/15/20 09/15/20 19:38 19:40 19:43 WBC Hgb MCH MCHC RDW Lymph % (Auto) Lymph # (Auto) Seg Neutrophils % Seg Neutrophils # PT INR APTT D-Dimer Heparin Anti-Xa Level ABG pH POC ABG pCO2 POC ABG pO2 ABG Oxyhemoglobin ABG Sodium ABG Potassium ABG Chloride ABG Glucose Sodium Potassium Chloride Carbon Dioxide BUN Creatinine Glucose POC Glucose 398 H Lactic Acid 2.70 H* Calcium Ferritin AST Ammonia Lactate Dehydrogenase Total Creatine Kinase CK-MB (CK-2) Troponin T C-Reactive Protein Albumin Triglycerides HDL Cholesterol TSH Free T4 0.10 L Arterial Blood Glucose Arterial Blood Ionized Calcium Urine WBC (Auto) Salicylates Acetaminophen Coronavirus (PCR) 09/15/20 09/15/20 09/16/20 20:02 Unknown 04:47 WBC Hgb 14.8 H MCH 33 H MCHC 36 H RDW Lymph % (Auto) 7.3 L Lymph # (Auto) 0.8 L Seg Neutrophils % 85.7 H Seg Neutrophils # 8.9 H PT INR APTT D-Dimer Heparin Anti-Xa Level ABG pH POC ABG pCO2 31.1 L POC ABG pO2 46.9 L ABG Oxyhemoglobin 82.8 L ABG Sodium 129.8 L ABG Potassium 3.1 L ABG Chloride ABG Glucose 374 H Sodium Potassium Chloride Carbon Dioxide BUN Creatinine Glucose POC Glucose Lactic Acid Calcium Ferritin AST Ammonia Lactate Dehydrogenase Total Creatine Kinase CK-MB (CK-2) Troponin T C-Reactive Protein Albumin Triglycerides HDL Cholesterol TSH Free T4 Arterial Blood Glucose 374 H Arterial Blood Ionized Calcium Urine WBC (Auto) > 182.0 H Salicylates Acetaminophen Coronavirus (PCR) 09/16/20 09/16/20 09/16/20 04:47 07:20 08:00 WBC Hgb MCH MCHC RDW Lymph % (Auto) Lymph # (Auto) Seg Neutrophils % Seg Neutrophils # PT INR APTT D-Dimer Heparin Anti-Xa Level ABG pH POC ABG pCO2 POC ABG pO2 ABG Oxyhemoglobin ABG Sodium ABG Potassium ABG Chloride ABG Glucose Sodium 135 L D Potassium Chloride 94.1 L Carbon Dioxide BUN Creatinine Glucose 418 H POC Glucose 403 H Lactic Acid Calcium 8.3 L Ferritin AST Ammonia Lactate Dehydrogenase Total Creatine Kinase CK-MB (CK-2) Troponin T C-Reactive Protein Albumin Triglycerides HDL Cholesterol TSH Free T4 Arterial Blood Glucose Arterial Blood Ionized Calcium Urine WBC (Auto) Salicylates Acetaminophen Coronavirus (PCR) Positive A 09/16/20 09/16/20 09/16/20 11:43 16:17 21:38 WBC Hgb MCH MCHC RDW Lymph % (Auto) Lymph # (Auto) Seg Neutrophils % Seg Neutrophils # PT INR APTT D-Dimer 702.65 H Heparin Anti-Xa Level ABG pH POC ABG pCO2 POC ABG pO2 ABG Oxyhemoglobin ABG Sodium ABG Potassium ABG Chloride ABG Glucose Sodium Potassium Chloride Carbon Dioxide BUN Creatinine Glucose POC Glucose 417 H 353 H Lactic Acid Calcium Ferritin AST Ammonia Lactate Dehydrogenase Total Creatine Kinase CK-MB (CK-2) Troponin T C-Reactive Protein Albumin Triglycerides HDL Cholesterol TSH Free T4 Arterial Blood Glucose Arterial Blood Ionized Calcium Urine WBC (Auto) Salicylates Acetaminophen Coronavirus (PCR) 09/16/20 09/16/20 09/16/20 21:38 21:38 21:38 WBC Hgb MCH MCHC RDW Lymph % (Auto) Lymph # (Auto) Seg Neutrophils % Seg Neutrophils # PT INR APTT D-Dimer Heparin Anti-Xa Level ABG pH POC ABG pCO2 POC ABG pO2 ABG Oxyhemoglobin ABG Sodium ABG Potassium ABG Chloride ABG Glucose Sodium Potassium Chloride Carbon Dioxide BUN Creatinine Glucose POC Glucose Lactic Acid Calcium Ferritin 1089.0 H AST Ammonia Lactate Dehydrogenase 722 H Total Creatine Kinase CK-MB (CK-2) Troponin T C-Reactive Protein 6.80 H Albumin Triglycerides HDL Cholesterol TSH Free T4 Arterial Blood Glucose Arterial Blood Ionized Calcium Urine WBC (Auto) Salicylates Acetaminophen 5.0 L Coronavirus (PCR) 09/16/20 09/16/20 09/17/20 21:38 22:24 04:59 WBC Hgb MCH MCHC RDW Lymph % (Auto) Lymph # (Auto) Seg Neutrophils % Seg Neutrophils # PT INR APTT D-Dimer Heparin Anti-Xa Level ABG pH POC ABG pCO2 POC ABG pO2 ABG Oxyhemoglobin ABG Sodium ABG Potassium ABG Chloride ABG Glucose Sodium 134 L 135 L Potassium 3.5 L 3.0 L Chloride 95.1 L 97.2 L Carbon Dioxide BUN Creatinine Glucose 288 H 149 H POC Glucose 307 H Lactic Acid Calcium 8.2 L Ferritin AST 43 H 49 H Ammonia Lactate Dehydrogenase Total Creatine Kinase CK-MB (CK-2) Troponin T C-Reactive Protein Albumin 3.7 L 3.3 L Triglycerides HDL Cholesterol TSH Free T4 Arterial Blood Glucose Arterial Blood Ionized Calcium Urine WBC (Auto) Salicylates Acetaminophen Coronavirus (PCR) 09/17/20 09/17/20 09/17/20 12:25 16:57 21:30 WBC Hgb MCH MCHC RDW Lymph % (Auto) Lymph # (Auto) Seg Neutrophils % Seg Neutrophils # PT INR APTT D-Dimer Heparin Anti-Xa Level ABG pH POC ABG pCO2 POC ABG pO2 ABG Oxyhemoglobin ABG Sodium ABG Potassium ABG Chloride ABG Glucose Sodium Potassium Chloride Carbon Dioxide BUN Creatinine Glucose POC Glucose 199 H 313 H 304 H Lactic Acid Calcium Ferritin AST Ammonia Lactate Dehydrogenase Total Creatine Kinase CK-MB (CK-2) Troponin T C-Reactive Protein Albumin Triglycerides HDL Cholesterol TSH Free T4 Arterial Blood Glucose Arterial Blood Ionized Calcium Urine WBC (Auto) Salicylates Acetaminophen Coronavirus (PCR) 09/18/20 09/18/20 09/18/20 08:01 08:05 12:36 WBC Hgb MCH MCHC RDW Lymph % (Auto) Lymph # (Auto) Seg Neutrophils % Seg Neutrophils # PT INR APTT D-Dimer Heparin Anti-Xa Level ABG pH POC ABG pCO2 POC ABG pO2 ABG Oxyhemoglobin ABG Sodium ABG Potassium ABG Chloride ABG Glucose Sodium Potassium 3.1 L Chloride Carbon Dioxide BUN Creatinine Glucose 112 H POC Glucose 125 H 159 H Lactic Acid Calcium 8.3 L Ferritin AST 47 H Ammonia Lactate Dehydrogenase Total Creatine Kinase CK-MB (CK-2) Troponin T C-Reactive Protein Albumin 3.3 L Triglycerides HDL Cholesterol TSH Free T4 Arterial Blood Glucose Arterial Blood Ionized Calcium Urine WBC (Auto) Salicylates Acetaminophen Coronavirus (PCR) 09/18/20 09/18/20 09/19/20 16:57 21:40 06:10 WBC Hgb MCH MCHC RDW Lymph % (Auto) Lymph # (Auto) Seg Neutrophils % Seg Neutrophils # PT INR APTT D-Dimer Heparin Anti-Xa Level ABG pH POC ABG pCO2 POC ABG pO2 ABG Oxyhemoglobin ABG Sodium ABG Potassium ABG Chloride ABG Glucose Sodium Potassium 2.8 L* Chloride 97.7 L Carbon Dioxide BUN Creatinine 0.4 L Glucose 146 H POC Glucose 180 H 225 H Lactic Acid Calcium 8.2 L Ferritin AST 45 H Ammonia Lactate Dehydrogenase Total Creatine Kinase CK-MB (CK-2) Troponin T C-Reactive Protein Albumin 3.5 L Triglycerides HDL Cholesterol TSH Free T4 Arterial Blood Glucose Arterial Blood Ionized Calcium Urine WBC (Auto) Salicylates Acetaminophen Coronavirus (PCR) 09/19/20 09/19/20 09/19/20 08:06 11:14 17:50 WBC Hgb MCH MCHC RDW Lymph % (Auto) Lymph # (Auto) Seg Neutrophils % Seg Neutrophils # PT INR APTT D-Dimer Heparin Anti-Xa Level ABG pH POC ABG pCO2 POC ABG pO2 ABG Oxyhemoglobin ABG Sodium ABG Potassium ABG Chloride ABG Glucose Sodium Potassium Chloride Carbon Dioxide BUN Creatinine Glucose POC Glucose 175 H 210 H 291 H Lactic Acid Calcium Ferritin AST Ammonia Lactate Dehydrogenase Total Creatine Kinase CK-MB (CK-2) Troponin T C-Reactive Protein Albumin Triglycerides HDL Cholesterol TSH Free T4 Arterial Blood Glucose Arterial Blood Ionized Calcium Urine WBC (Auto) Salicylates Acetaminophen Coronavirus (PCR) 09/19/20 09/20/20 09/20/20 21:30 05:23 05:23 WBC Hgb MCH MCHC RDW Lymph % (Auto) Lymph # (Auto) Seg Neutrophils % Seg Neutrophils # PT INR APTT D-Dimer Heparin Anti-Xa Level ABG pH POC ABG pCO2 POC ABG pO2 ABG Oxyhemoglobin ABG Sodium ABG Potassium ABG Chloride ABG Glucose Sodium 131 L Potassium 3.3 L D Chloride 95.4 L Carbon Dioxide 18 L BUN Creatinine 0.4 L Glucose 169 H POC Glucose 232 H Lactic Acid Calcium 8.3 L Ferritin 738.9 H AST Ammonia Lactate Dehydrogenase 882 H Total Creatine Kinase CK-MB (CK-2) Troponin T C-Reactive Protein 11.40 H Albumin Triglycerides HDL Cholesterol TSH Free T4 Arterial Blood Glucose Arterial Blood Ionized Calcium Urine WBC (Auto) Salicylates Acetaminophen Coronavirus (PCR) 09/20/20 09/20/20 09/20/20 05:23 06:50 10:46 WBC Hgb MCH MCHC RDW Lymph % (Auto) Lymph # (Auto) Seg Neutrophils % Seg Neutrophils # PT INR APTT D-Dimer 4940.20 H Heparin Anti-Xa Level ABG pH 7.289 L POC ABG pCO2 POC ABG pO2 50.1 L ABG Oxyhemoglobin 80.8 L ABG Sodium 130.8 L ABG Potassium ABG Chloride 97.0 L ABG Glucose 275 H Sodium Potassium Chloride Carbon Dioxide BUN Creatinine Glucose POC Glucose 242 H Lactic Acid Calcium Ferritin AST Ammonia Lactate Dehydrogenase Total Creatine Kinase CK-MB (CK-2) Troponin T C-Reactive Protein Albumin Triglycerides HDL Cholesterol TSH Free T4 Arterial Blood Glucose 275 H Arterial Blood Ionized Calcium 4.2 L Urine WBC (Auto) Salicylates Acetaminophen Coronavirus (PCR) 09/20/20 09/20/20 09/20/20 11:58 16:30 16:41 WBC Hgb MCH MCHC RDW Lymph % (Auto) Lymph # (Auto) Seg Neutrophils % Seg Neutrophils # PT INR APTT D-Dimer Heparin Anti-Xa Level ABG pH POC ABG pCO2 27.8 L POC ABG pO2 79.7 L ABG Oxyhemoglobin ABG Sodium 131.0 L ABG Potassium ABG Chloride ABG Glucose 297 H Sodium Potassium Chloride Carbon Dioxide BUN Creatinine Glucose POC Glucose 262 H 283 H Lactic Acid Calcium Ferritin AST Ammonia Lactate Dehydrogenase Total Creatine Kinase CK-MB (CK-2) Troponin T C-Reactive Protein Albumin Triglycerides HDL Cholesterol TSH Free T4 Arterial Blood Glucose 297 H Arterial Blood Ionized Calcium 4.3 L Urine WBC (Auto) Salicylates Acetaminophen Coronavirus (PCR) 09/20/20 09/20/20 09/21/20 17:26 21:29 00:46 WBC Hgb MCH MCHC RDW Lymph % (Auto) Lymph # (Auto) Seg Neutrophils % Seg Neutrophils # PT INR APTT D-Dimer Heparin Anti-Xa Level ABG pH POC ABG pCO2 POC ABG pO2 ABG Oxyhemoglobin ABG Sodium ABG Potassium ABG Chloride ABG Glucose Sodium Potassium Chloride Carbon Dioxide BUN Creatinine Glucose POC Glucose 297 H 248 H Lactic Acid Calcium Ferritin AST Ammonia Lactate Dehydrogenase Total Creatine Kinase CK-MB (CK-2) Troponin T 0.444 H* C-Reactive Protein Albumin Triglycerides 156 H HDL Cholesterol 22 L TSH Free T4 Arterial Blood Glucose Arterial Blood Ionized Calcium Urine WBC (Auto) Salicylates Acetaminophen Coronavirus (PCR) 09/21/20 09/21/20 09/21/20 00:46 02:14 03:22 WBC Hgb MCH MCHC RDW Lymph % (Auto) Lymph # (Auto) Seg Neutrophils % Seg Neutrophils # PT 20.0 H INR 1.65 H APTT 38.2 H D-Dimer Heparin Anti-Xa Level ABG pH POC ABG pCO2 POC ABG pO2 70.3 L ABG Oxyhemoglobin 92.2 L ABG Sodium 134.2 L ABG Potassium ABG Chloride ABG Glucose 187 H Sodium 134 L Potassium Chloride Carbon Dioxide 18 L BUN 23 H Creatinine Glucose 198 H POC Glucose Lactic Acid Calcium 6.7 L D Ferritin AST Ammonia Lactate Dehydrogenase Total Creatine Kinase CK-MB (CK-2) Troponin T C-Reactive Protein Albumin Triglycerides HDL Cholesterol TSH Free T4 Arterial Blood Glucose 187 H Arterial Blood Ionized Calcium 4.2 L Urine WBC (Auto) Salicylates Acetaminophen Coronavirus (PCR) 09/21/20 09/21/20 09/21/20 07:26 08:15 11:21 WBC Hgb MCH MCHC RDW Lymph % (Auto) Lymph # (Auto) Seg Neutrophils % Seg Neutrophils # PT INR APTT D-Dimer Heparin Anti-Xa Level 0.97 H ABG pH POC ABG pCO2 POC ABG pO2 ABG Oxyhemoglobin ABG Sodium ABG Potassium ABG Chloride ABG Glucose Sodium Potassium Chloride Carbon Dioxide BUN Creatinine Glucose POC Glucose 157 H 153 H Lactic Acid Calcium Ferritin AST Ammonia Lactate Dehydrogenase Total Creatine Kinase CK-MB (CK-2) Troponin T C-Reactive Protein Albumin Triglycerides HDL Cholesterol TSH Free T4 Arterial Blood Glucose Arterial Blood Ionized Calcium Urine WBC (Auto) Salicylates Acetaminophen Coronavirus (PCR) 09/21/20 09/21/20 09/21/20 15:16 15:59 18:58 WBC Hgb MCH MCHC RDW Lymph % (Auto) Lymph # (Auto) Seg Neutrophils % Seg Neutrophils # PT INR APTT D-Dimer Heparin Anti-Xa Level 0.90 H ABG pH POC ABG pCO2 POC ABG pO2 ABG Oxyhemoglobin ABG Sodium ABG Potassium ABG Chloride ABG Glucose Sodium Potassium Chloride Carbon Dioxide BUN Creatinine Glucose POC Glucose 192 H Lactic Acid Calcium Ferritin AST Ammonia Lactate Dehydrogenase Total Creatine Kinase CK-MB (CK-2) Troponin T C-Reactive Protein 8.40 H Albumin Triglycerides HDL Cholesterol TSH Free T4 Arterial Blood Glucose Arterial Blood Ionized Calcium Urine WBC (Auto) Salicylates Acetaminophen Coronavirus (PCR) 09/21/20 09/21/20 09/22/20 18:58 21:14 01:33 WBC Hgb MCH MCHC RDW Lymph % (Auto) Lymph # (Auto) Seg Neutrophils % Seg Neutrophils # PT INR APTT D-Dimer Heparin Anti-Xa Level 0.78 H ABG pH POC ABG pCO2 POC ABG pO2 ABG Oxyhemoglobin ABG Sodium ABG Potassium ABG Chloride ABG Glucose Sodium Potassium Chloride Carbon Dioxide BUN Creatinine Glucose POC Glucose 172 H Lactic Acid Calcium Ferritin AST Ammonia Lactate Dehydrogenase Total Creatine Kinase 536 H CK-MB (CK-2) 17.8 H Troponin T 0.793 H* D C-Reactive Protein Albumin Triglycerides HDL Cholesterol TSH Free T4 Arterial Blood Glucose Arterial Blood Ionized Calcium Urine WBC (Auto) Salicylates Acetaminophen Coronavirus (PCR) 09/22/20 09/22/20 09/22/20 04:15 07:15 10:22 WBC Hgb MCH MCHC RDW Lymph % (Auto) Lymph # (Auto) Seg Neutrophils % Seg Neutrophils # PT INR APTT D-Dimer Heparin Anti-Xa Level ABG pH POC ABG pCO2 POC ABG pO2 ABG Oxyhemoglobin ABG Sodium 132.9 L ABG Potassium ABG Chloride ABG Glucose 155 H Sodium Potassium Chloride Carbon Dioxide BUN Creatinine Glucose POC Glucose 159 H Lactic Acid Calcium Ferritin AST Ammonia Lactate Dehydrogenase Total Creatine Kinase 1159 H CK-MB (CK-2) 14.4 H Troponin T 0.501 H* D C-Reactive Protein Albumin Triglycerides HDL Cholesterol TSH Free T4 Arterial Blood Glucose 155 H Arterial Blood Ionized Calcium 4.3 L Urine WBC (Auto) Salicylates Acetaminophen Coronavirus (PCR) 09/22/20 09/22/20 09/22/20 11:34 16:35 17:44 WBC Hgb MCH MCHC RDW Lymph % (Auto) Lymph # (Auto) Seg Neutrophils % Seg Neutrophils # PT INR APTT D-Dimer Heparin Anti-Xa Level 0.15 L ABG pH POC ABG pCO2 POC ABG pO2 ABG Oxyhemoglobin ABG Sodium ABG Potassium ABG Chloride ABG Glucose Sodium Potassium Chloride Carbon Dioxide BUN Creatinine Glucose POC Glucose 206 H 273 H Lactic Acid Calcium Ferritin AST Ammonia Lactate Dehydrogenase Total Creatine Kinase CK-MB (CK-2) Troponin T C-Reactive Protein Albumin Triglycerides HDL Cholesterol TSH Free T4 Arterial Blood Glucose Arterial Blood Ionized Calcium Urine WBC (Auto) Salicylates Acetaminophen Coronavirus (PCR) 09/23/20 09/23/20 09/23/20 00:32 04:00 05:11 WBC Hgb MCH MCHC RDW Lymph % (Auto) Lymph # (Auto) Seg Neutrophils % Seg Neutrophils # PT INR APTT D-Dimer Heparin Anti-Xa Level ABG pH POC ABG pCO2 POC ABG pO2 75.7 L ABG Oxyhemoglobin ABG Sodium 135.0 L ABG Potassium ABG Chloride ABG Glucose 237 H Sodium Potassium Chloride Carbon Dioxide BUN Creatinine Glucose POC Glucose 287 H 210 H Lactic Acid Calcium Ferritin AST Ammonia Lactate Dehydrogenase Total Creatine Kinase CK-MB (CK-2) Troponin T C-Reactive Protein Albumin Triglycerides HDL Cholesterol TSH Free T4 Arterial Blood Glucose 237 H Arterial Blood Ionized Calcium 4.5 L Urine WBC (Auto) Salicylates Acetaminophen Coronavirus (PCR) 09/23/20 09/23/20 09/23/20 08:02 10:03 10:03 WBC 13.8 H Hgb MCH MCHC RDW Lymph % (Auto) Lymph # (Auto) Seg Neutrophils % Seg Neutrophils # PT INR APTT D-Dimer 2573.89 H Heparin Anti-Xa Level ABG pH POC ABG pCO2 POC ABG pO2 ABG Oxyhemoglobin ABG Sodium ABG Potassium ABG Chloride ABG Glucose Sodium Potassium Chloride Carbon Dioxide BUN Creatinine Glucose POC Glucose 268 H Lactic Acid Calcium Ferritin AST Ammonia Lactate Dehydrogenase Total Creatine Kinase CK-MB (CK-2) Troponin T C-Reactive Protein Albumin Triglycerides HDL Cholesterol TSH Free T4 Arterial Blood Glucose Arterial Blood Ionized Calcium Urine WBC (Auto) Salicylates Acetaminophen Coronavirus (PCR) 09/23/20 09/23/20 09/23/20 10:03 10:03 10:03 WBC Hgb MCH MCHC RDW Lymph % (Auto) Lymph # (Auto) Seg Neutrophils % Seg Neutrophils # PT INR APTT D-Dimer Heparin Anti-Xa Level 0.12 L ABG pH POC ABG pCO2 POC ABG pO2 ABG Oxyhemoglobin ABG Sodium ABG Potassium ABG Chloride ABG Glucose Sodium Potassium Chloride Carbon Dioxide BUN 26 H Creatinine Glucose 271 H POC Glucose Lactic Acid Calcium 8.2 L D Ferritin 1084.0 H AST Ammonia Lactate Dehydrogenase 1592 H Total Creatine Kinase CK-MB (CK-2) Troponin T C-Reactive Protein 9.10 H Albumin Triglycerides HDL Cholesterol TSH Free T4 Arterial Blood Glucose Arterial Blood Ionized Calcium Urine WBC (Auto) Salicylates Acetaminophen Coronavirus (PCR) 09/23/20 09/23/20 09/23/20 12:17 18:30 20:01 WBC Hgb MCH MCHC RDW Lymph % (Auto) Lymph # (Auto) Seg Neutrophils % Seg Neutrophils # PT INR APTT D-Dimer Heparin Anti-Xa Level 0.15 L ABG pH POC ABG pCO2 POC ABG pO2 ABG Oxyhemoglobin ABG Sodium ABG Potassium ABG Chloride ABG Glucose Sodium Potassium Chloride Carbon Dioxide BUN Creatinine Glucose POC Glucose 282 H 392 H Lactic Acid Calcium Ferritin AST Ammonia Lactate Dehydrogenase Total Creatine Kinase CK-MB (CK-2) Troponin T C-Reactive Protein Albumin Triglycerides HDL Cholesterol TSH Free T4 Arterial Blood Glucose Arterial Blood Ionized Calcium Urine WBC (Auto) Salicylates Acetaminophen Coronavirus (PCR) 09/23/20 09/23/20 09/24/20 21:08 23:58 04:00 WBC Hgb MCH MCHC RDW Lymph % (Auto) Lymph # (Auto) Seg Neutrophils % Seg Neutrophils # PT INR APTT D-Dimer Heparin Anti-Xa Level ABG pH POC ABG pCO2 55.6 H POC ABG pO2 75.6 L ABG Oxyhemoglobin ABG Sodium 135.9 L ABG Potassium ABG Chloride ABG Glucose 330 H Sodium Potassium Chloride Carbon Dioxide BUN Creatinine Glucose POC Glucose 373 H 391 H Lactic Acid Calcium Ferritin AST Ammonia Lactate Dehydrogenase Total Creatine Kinase CK-MB (CK-2) Troponin T C-Reactive Protein Albumin Triglycerides HDL Cholesterol TSH Free T4 Arterial Blood Glucose 330 H Arterial Blood Ionized Calcium 4.4 L Urine WBC (Auto) Salicylates Acetaminophen Coronavirus (PCR) 09/24/20 09/24/20 09/24/20 04:30 04:30 05:04 WBC 12.4 H Hgb MCH MCHC RDW Lymph % (Auto) Lymph # (Auto) Seg Neutrophils % Seg Neutrophils # PT INR APTT D-Dimer Heparin Anti-Xa Level ABG pH POC ABG pCO2 POC ABG pO2 ABG Oxyhemoglobin ABG Sodium ABG Potassium ABG Chloride ABG Glucose Sodium Potassium Chloride Carbon Dioxide BUN 25 H Creatinine Glucose 337 H POC Glucose 316 H Lactic Acid Calcium 8.0 L Ferritin AST Ammonia Lactate Dehydrogenase Total Creatine Kinase CK-MB (CK-2) Troponin T C-Reactive Protein Albumin Triglycerides HDL Cholesterol TSH Free T4 Arterial Blood Glucose Arterial Blood Ionized Calcium Urine WBC (Auto) Salicylates Acetaminophen Coronavirus (PCR) 09/24/20 09/24/20 09/24/20 11:41 17:32 23:41 WBC Hgb MCH MCHC RDW Lymph % (Auto) Lymph # (Auto) Seg Neutrophils % Seg Neutrophils # PT INR APTT D-Dimer Heparin Anti-Xa Level ABG pH POC ABG pCO2 POC ABG pO2 ABG Oxyhemoglobin ABG Sodium ABG Potassium ABG Chloride ABG Glucose Sodium Potassium Chloride Carbon Dioxide BUN Creatinine Glucose POC Glucose 240 H 271 H 349 H Lactic Acid Calcium Ferritin AST Ammonia Lactate Dehydrogenase Total Creatine Kinase CK-MB (CK-2) Troponin T C-Reactive Protein Albumin Triglycerides HDL Cholesterol TSH Free T4 Arterial Blood Glucose Arterial Blood Ionized Calcium Urine WBC (Auto) Salicylates Acetaminophen Coronavirus (PCR) 09/25/20 09/25/20 09/25/20 05:11 09:43 09:43 WBC Hgb MCH MCHC RDW 15.4 H Lymph % (Auto) Lymph # (Auto) Seg Neutrophils % Seg Neutrophils # PT INR APTT D-Dimer Heparin Anti-Xa Level ABG pH POC ABG pCO2 POC ABG pO2 ABG Oxyhemoglobin ABG Sodium ABG Potassium ABG Chloride ABG Glucose Sodium Potassium Chloride Carbon Dioxide BUN Creatinine Glucose POC Glucose 319 H Lactic Acid Calcium Ferritin 670.5 H AST Ammonia Lactate Dehydrogenase Total Creatine Kinase CK-MB (CK-2) Troponin T C-Reactive Protein Albumin Triglycerides HDL Cholesterol TSH Free T4 Arterial Blood Glucose Arterial Blood Ionized Calcium Urine WBC (Auto) Salicylates Acetaminophen Coronavirus (PCR) 09/25/20 09/25/20 09:43 11:52 WBC Hgb MCH MCHC RDW Lymph % (Auto) Lymph # (Auto) Seg Neutrophils % Seg Neutrophils # PT INR APTT D-Dimer Heparin Anti-Xa Level ABG pH POC ABG pCO2 POC ABG pO2 ABG Oxyhemoglobin ABG Sodium ABG Potassium ABG Chloride ABG Glucose Sodium Potassium Chloride Carbon Dioxide 33 H BUN 26 H Creatinine Glucose 306 H POC Glucose 313 H Lactic Acid Calcium 8.1 L Ferritin AST Ammonia Lactate Dehydrogenase 948 H Total Creatine Kinase CK-MB (CK-2) Troponin T C-Reactive Protein 6.70 H Albumin Triglycerides HDL Cholesterol TSH Free T4 Arterial Blood Glucose Arterial Blood Ionized Calcium Urine WBC (Auto) Salicylates Acetaminophen Coronavirus (PCR) Chest x-ray: image reviewed (persistent bilateral pneumonia) Allied health notes reviewed: nursing
--- NOTE | 2020-09-25 13:04 | Progress Note ---
Assessment and Plan Respiratory failure due to COVID pneumonia Acute Non-ST elevation myocardial infarction during hospital course Echocardiogram shows well-preserved left ventricular systolic function, EF 50- 55%. Recommendations: Continue medical therapy for underlying coronary artery disease as tolerated. Patient is not a candidate for aggressive and invasive cardiac therapies, in the setting of respiratory failure due to severe viral pneumonia and sepsis. Supportive cardiac management. Subjective Date of service: 09/25/20 Principal diagnosis: Ac encephalopathy; CAP; Sepsis; COVID-19 infxn; Ac hypoxemic resp failure Interval history: Remains unresponsive on the ventilator. Objective Vital Signs Temp Pulse Resp BP Pulse Ox 09/25/20 12:15 73 18 107/49 91 09/25/20 12:00 98.0 F 71 18 107/49 91 09/25/20 11:45 71 18 112/53 93 09/25/20 11:30 73 18 112/53 93 09/25/20 11:15 71 18 109/49 93 09/25/20 11:00 69 18 109/49 94 09/25/20 10:45 70 18 110/45 93 09/25/20 10:30 71 18 110/45 93 09/25/20 10:15 70 18 100/52 93 09/25/20 10:00 70 18 100/52 92 09/25/20 09:45 72 16 101/59 92 09/25/20 09:30 74 18 101/59 92 09/25/20 09:15 70 18 107/55 93 09/25/20 09:00 70 18 107/55 93 09/25/20 08:45 71 18 99/57 93 09/25/20 08:30 72 18 99/57 92 09/25/20 08:20 92 09/25/20 08:15 70 18 103/55 95 09/25/20 08:00 98.7 F 69 18 103/55 94 09/25/20 07:45 70 18 107/58 95 09/25/20 07:30 69 18 107/58 95 09/25/20 07:15 69 18 107/61 95 09/25/20 07:00 70 18 107/61 94 09/25/20 06:45 68 18 100/55 95 09/25/20 06:30 70 18 100/55 92 09/25/20 06:15 69 18 108/63 93 09/25/20 06:00 75 18 108/63 90 09/25/20 05:59 77 107/57 09/25/20 05:57 75 107/57 09/25/20 05:45 80 13 107/58 96 09/25/20 05:30 73 18 107/57 94 09/25/20 05:15 75 18 109/60 95 09/25/20 05:00 73 18 107/58 94 09/25/20 04:45 73 18 106/58 96 09/25/20 04:30 77 17 109/60 94 09/25/20 04:15 76 18 106/58 94 09/25/20 04:00 98.6 F 75 18 106/58 93 09/25/20 03:45 81 18 117/61 93 09/25/20 03:30 78 18 117/61 92 09/25/20 03:15 78 18 116/60 92 09/25/20 03:00 82 18 116/60 91 09/25/20 02:45 76 18 119/65 95 09/25/20 02:30 78 18 123/66 95 09/25/20 02:15 77 18 119/67 96 09/25/20 02:00 77 18 119/65 94 09/25/20 01:45 79 18 122/69 95 09/25/20 01:30 79 18 119/67 93 09/25/20 01:15 80 18 127/68 94 09/25/20 01:00 99.9 F H 81 19 122/69 93 09/25/20 00:45 83 18 127/68 94 09/25/20 00:30 85 19 127/68 92 09/25/20 00:15 96 H 20 111/55 94 09/25/20 00:00 88 18 111/55 97 09/24/20 23:53 101.3 F H 09/24/20 23:45 88 18 106/53 96 09/24/20 23:30 88 18 105/54 94 09/24/20 23:15 87 18 123/69 96 09/24/20 23:00 87 18 106/53 93 09/24/20 22:45 87 18 105/61 95 09/24/20 22:30 83 18 105/61 09/24/20 22:15 83 19 123/69 95 09/24/20 22:00 82 18 123/69 95 09/24/20 21:56 80 122/62 09/24/20 21:55 80 122/62 09/24/20 21:45 79 18 122/62 97 09/24/20 21:30 81 18 122/62 95 09/24/20 21:15 83 18 118/61 97 09/24/20 21:00 79 18 118/61 96 09/24/20 20:53 78 124/60 97 09/24/20 20:45 78 18 121/59 97 09/24/20 20:30 77 18 121/59 95 09/24/20 20:15 78 18 124/60 97 09/24/20 20:00 100.0 F H 78 18 124/60 95 09/24/20 19:45 78 18 120/59 97 09/24/20 19:30 76 18 120/59 95 09/24/20 19:15 77 18 97 09/24/20 19:00 76 18 113/59 09/24/20 18:45 76 18 113/59 97 09/24/20 18:31 76 18 113/59 97 09/24/20 18:30 76 18 113/59 95 09/24/20 18:15 75 18 116/60 98 09/24/20 18:00 76 18 116/60 96 09/24/20 17:45 77 18 114/61 98 09/24/20 17:30 73 18 114/61 96 09/24/20 17:15 76 18 109/60 98 09/24/20 17:00 74 18 109/60 96 09/24/20 16:45 75 18 113/60 97 09/24/20 16:30 75 18 113/60 95 09/24/20 16:20 74 117/60 96 09/24/20 16:15 74 18 117/60 96 09/24/20 16:00 75 18 117/60 94 09/24/20 15:45 74 18 107/59 97 09/24/20 15:30 74 18 107/59 95 09/24/20 15:15 73 18 111/59 97 09/24/20 15:00 73 18 111/59 95 09/24/20 14:45 74 18 105/58 97 09/24/20 14:30 73 18 105/58 95 09/24/20 14:15 73 18 110/59 97 09/24/20 14:00 73 18 110/59 95 09/24/20 13:45 72 18 114/63 97 09/24/20 13:30 74 18 114/63 95 09/24/20 13:15 73 18 114/62 96 - Physical Examination Narrative exam: Deferred due to COVID-19 isolation protocol. General: Other (Unresponsive, on the vent) Cardiac: Positive: Reg Rate and Rhythm - Labs and Meds Cardiac Enzymes 09/25/20 Range/Units 09:43 Lactate Dehydrogenase 948 H (91-180) units/L CBC 09/25/20 Range/Units 09:43 WBC 10.4 (4.5-11.0) K/mm3 RBC 3.70 (3.65-5.03) M/mm3 Hgb 11.7 (10.1-14.3) gm/dl Hct 35.1 (30.3-42.9) % Plt Count 217 (140-440) K/mm3 Comprehensive Metabolic Panel 09/25/20 Range/Units 09:43 Sodium 142 (137-145) mmol/L Potassium 4.4 (3.6-5.0) mmol/L Chloride 103.7 (98-107) mmol/L Carbon Dioxide 33 H (22-30) mmol/L BUN 26 H (7-17) mg/dL Creatinine 0.6 (0.6-1.2) mg/dL Glucose 306 H (65-100) mg/dL Calcium 8.1 L (8.4-10.2) mg/dL - Allied health notes Allied health notes reviewed: nursing
--- NOTE | 2020-09-25 17:34 | Progress Note ---
Assessment and Plan Assessment and plan: This is a 54-year-old female with bipolar disorder, hypothyroidism, hypertension, diabetes mellitus admitted for acute hypoxic respiratory failure, COVID-19 pneumonia, NSTEMI Neuro: Acute metabolic encephalopathy, drug ingestion, h/o bipolar -Psych consult, appreciate recommendations -Zoloft -intact cough/gag, PERRL -Avoid delirium -Sedated with fentanyl, goal RASS 0 to -1 Cardiology: SR, NSTEMI, h/o HTN -Cardiology consulted, appreciate recommendations -Echocardiogram shows diastolic function normal, LVEF 50 to 55%, mild to moderate concentric LVH, mild AR, mild MR, trace TR, RVSP normal at 17 mmHg -Aspirin 162, Plavix 75, beta-genny, as needed nitroglycerin -Blood pressure monitoring per protocol -Heparin drip Respiratory: Acute hypoxic respiratory failure -On mechanical ventilation, wean as tolerated -CCM consulted, appreciate recommendations -VAP bundle -SPO2 monitoring -Serial CXR and ABGs -Current vent settings: AC/PRVC TV 450, R 18, PEEP 16, 90% fiO2 -09/25 CXR and ABG reviewed and vent changes made GI: NAD -Nutrition consulted, appreciate recommendations -Tube feedings -Accu-Cheks every 6 -SSI -PPI -BM: [place]-BM today per RN : Urinary retention -Laura catheter replaced due to retention -Patient is on doxazosin Endo: Hypothyroidism, h/o DM -SSI -Accu-Cheks every 6 -Synthroid -Avoid hypoglycemia -Long-acting insulin, titrate as needed Heme: Leukocytosis -Trend CBC -Transfuse for hemoglobin less than 7 -Systemic anticoagulation with heparin drip ID: COVID-19 pneumonia, UTI, sepsis -COVID-19 PCR + 09/16/2020 -Infectious disease consulted, appreciate recommendations -S/p remdesivir 5 days -Dexamethasone -09/24 Actemra -ABX completed -Contact/droplet precautions -Trend COVID-19 inflammatory markers The high probability of a clinically significant, sudden or life threatening deterioration of the [cardiorespiratory] system(s) required my full and direct attention, intervention and personal management. The aggregate critical care time was [60] minutes. This time is in addition to time spent performing reported procedures but includes the following: [x] Data Review and interpretation [x] Patient assessment and monitoring of vital signs [x] Documentation [x] Medication orders and management Disposition Plan: ICU Total Time Spent with Patient (Minutes): 60 History Interval history: This is a 54-year-old female with bipolar disorder, hypothyroidism, hypertension, diabetes mellitus who presents to the emergency department via EMS after having being found on the floor with a generalized weakness vs syncope as the patient is in the case that she took some trazodone in order to get to sleep but cannot recall how many tablets she took her dosage. The final regimen patient was confused but arousable and responds to questions during her course of stay. In the emergency department she was found to be hypoxic upon arrival with O2 sat of 82% on room air and was placed on supplemental oxygen. Work-up in the emergency department included a CXR which revealed patchy parenchymal opacities, hyponatremia of 128, hypokalemia 3.2, elevated blood glucose of 388, lactic acidosis 2.7, elevated TSH at 34.67 and free T4 at 0.1. UA revealed UTI and tox screen revealed Tylenol level of 9.1. Patient was admitted to the hospital service with acute hypoxic respiratory failure secondary to pneumonia, hypokalemia, drug overdose and hyperglycemia. She was admitted as a COVID-19 PUI and infectious disease was also consulted. Psych was consulted for history of bipolar and possible drug overdose. Upon arrival to the ICU for progressive shortness of breath and progressively worsening CXR patient was noted to have an NSTEMI and cardiology was consulted. 09/16/2020: COVID-pneumonia. Coronavirus PCR positive, Patient on 5 L nasal cannula oxygen 09/17/2020: Covid pneumonia, Covid PCR positive yesterday. Patient on 5 L nasal cannula oxygen. ID consult appreciated, On remdesivir 09/18/2020: Still on 5 L nasal cannula oxygen, Saturations dropped to 88% on 3 L nasal cannula oxygen, Trying to wean but not possible, Continue remdesivir 09/20/2020: Patient is severely hypoxemic, requiring very high flow oxygen And intermittent BiPAP, x-ray chest worsening infiltrates. Patient is severely hypoxemic even on BiPAP, repair tech recommend. Transfer to ICU for close observation and possible intubation if no improvement . I called NOK patient's mother and discussed in detail patient's deterioration, severe hypoxemia, Transfer to ICU, possible intubation if needed she informed me that. Her recently, With Covid infection, and she herself is Covid positive. 09/21/2020; patient was intubated yesterday, On ventilatory support, Non-ST elevation IL, check echocardiogram, Cardiology evaluation noted and appreciated. Discussed with 09/22: Patient's PEEP was increased to 14. [facility], will order to remove her Laura catheter today and IV heparin was changed to IV Lovenox 09/23: Continue current medical management for NSTEMI, advance O ETT by 1 cm, increase PEEP and reduced FiO2 per [facility]. Patient had retention today and Laura will be replaced with 30 straight cath and patient will be started on Flomax. 09/24: Patient received Actemra today, [facility] added doxazosin, we increase Lantus and SSI today for tighter glycemic control. 09/25: No acute events reported overnight. Increase in lantus. Vent changes made in accordance to ABG. Hospitalist Physical - Constitutional Vitals: Temp Pulse Resp BP Pulse Ox 98.4 F 82 18 106/52 94 09/25/20 16:00 09/25/20 15:46 09/25/20 12:15 09/25/20 15:46 09/25/20 15:46 General appearance: Present: no acute distress, well-nourished, other (Intubated on vent, sedated) - EENT Eyes: Present: PERRL ENT: clear oral mucosa - Neck Neck: Present: normal ROM - Respiratory Respiratory effort: normal Respiratory: bilateral: diminished - Cardiovascular Rhythm: regular Heart Sounds: Present: S1 & S2 Peripheral Pulses: within normal limits - Psychiatric Psychiatric: other - Neurologic Neurologic: other (follows commands) HEART Score - HEART Score Troponin: Troponin T 0.501 ng/mL (0.00-0.029) H* D 09/22/20 10:22 Results - Labs CBC & Chem 7: 09/25/20 09:43 09/25/20 09:43 Labs: Laboratory Last Values WBC 10.4 K/mm3 (4.5-11.0) 09/25/20 09:43 RBC 3.70 M/mm3 (3.65-5.03) 09/25/20 09:43 Hgb 11.7 gm/dl (10.1-14.3) 09/25/20 09:43 Hct 35.1 % (30.3-42.9) 09/25/20 09:43 MCV 95 fl (79-97) 09/25/20 09:43 MCH 32 pg (28-32) 09/25/20 09:43 MCHC 33 % (30-34) 09/25/20 09:43 RDW 15.4 % (13.2-15.2) H 09/25/20 09:43 Plt Count 217 K/mm3 (140-440) 09/25/20 09:43 Lymph % (Auto) 7.3 % (13.4-35.0) L 09/16/20 04:47 [place] % (Auto) 6.6 % (0.0-7.3) 09/16/20 04:47 Eos % (Auto) 0.0 % (0.0-4.3) 09/16/20 04:47 Baso % (Auto) 0.4 % (0.0-1.8) 09/16/20 04:47 Lymph # (Auto) 0.8 K/mm3 (1.2-5.4) L 09/16/20 04:47 [place] # (Auto) 0.7 K/mm3 (0.0-0.8) 09/16/20 04:47 Eos # (Auto) 0.0 K/mm3 (0.0-0.4) 09/16/20 04:47 Baso # (Auto) 0.0 K/mm3 (0.0-0.1) 09/16/20 04:47 Seg Neutrophils % 85.7 % (40.0-70.0) H 09/16/20 04:47 Seg Neutrophils # 8.9 K/mm3 (1.8-7.7) H 09/16/20 04:47 PT 20.0 Sec. (12.2-14.9) H 09/21/20 02:14 INR 1.65 (0.87-1.13) H 09/21/20 02:14 APTT 38.2 Sec. (24.2-36.6) H 09/21/20 02:14 D-Dimer 1481.03 ng/mlDDU (0-234) H 09/25/20 09:43 Heparin Anti-Xa Level 0.10 U.I./ml (0.3-0.7) L 09/25/20 09:43 ABG pH 7.350 (7.320-7.450) 09/25/20 13:38 POC ABG pCO2 60.9 mmHg (32.0-48.0) H 09/25/20 13:38 POC ABG pO2 59.7 mmHg (83-108) L 09/25/20 13:38 POC ABG HCO3 32.9 09/25/20 13:38 ABG O2 Saturation 90.9 (0-100) 09/25/20 13:38 POC ABG Base Excess 5.6 09/25/20 13:38 ABG Hemoglobin 12.6 (12.0-17.5) 09/25/20 13:38 ABG Oxyhemoglobin 90.2 (94-98) L 09/25/20 13:38 ABG Methemoglobin 0.3 (0.0-1.5) 09/25/20 13:38 ABG Sodium 136.3 mmol/L (136.0-145.0) 09/25/20 13:38 ABG Potassium 4.3 mmol/L (3.40-4.50) 09/25/20 13:38 ABG Chloride 104.0 mmol/L (98-107) 09/25/20 13:38 ABG Glucose 336 mg/dL (65-95) H 09/25/20 13:38 VBG pH 7.368 (7.320-7.420) 09/15/20 18:46 Carboxyhemoglobin 0.5 (0.5-1.5) 09/25/20 13:38 FiO2 % 90.0 09/25/20 13:38 Sodium 142 mmol/L (137-145) 09/25/20 09:43 Potassium 4.4 mmol/L (3.6-5.0) 09/25/20 09:43 Chloride 103.7 mmol/L (98-107) 09/25/20 09:43 Carbon Dioxide 33 mmol/L (22-30) H 09/25/20 09:43 Anion Gap 10 mmol/L 09/25/20 09:43 BUN 26 mg/dL (7-17) H 09/25/20 09:43 Creatinine 0.6 mg/dL (0.6-1.2) 09/25/20 09:43 Estimated GFR > 60 ml/min 09/25/20 09:43 BUN/Creatinine Ratio 43 % 09/25/20 09:43 Glucose 306 mg/dL (65-100) H 09/25/20 09:43 POC Glucose 313 mg/dL (70-105) H 09/25/20 11:52 Lactic Acid 1.80 mmol/L (0.7-2.0) 09/17/20 04:59 Calcium 8.1 mg/dL (8.4-10.2) L 09/25/20 09:43 Magnesium 1.70 mg/dL (1.7-2.3) 09/21/20 00:46 Ferritin 670.5 ng/mL (10.0-200.0) H 09/25/20 09:43 Total Bilirubin 0.80 mg/dL (0.1-1.2) 09/19/20 06:10 AST 45 units/L (5-40) H 09/19/20 06:10 ALT 35 units/L (7-56) 09/19/20 06:10 Alkaline Phosphatase 108 units/L (35-129) 09/19/20 06:10 Ammonia 23.0 umol/L (25-60) L 09/15/20 18:46 Lactate Dehydrogenase 948 units/L (91-180) H 09/25/20 09:43 Total Creatine Kinase 1159 units/L (30-135) H 09/22/20 10:22 CK-MB (CK-2) 14.4 ng/mL (0.0-4.0) H 09/22/20 10:22 CK-MB (CK-2) Rel Index 1.2 (0-4) 09/22/20 10:22 Troponin T 0.501 ng/mL (0.00-0.029) H* D 09/22/20 10:22 C-Reactive Protein 6.70 mg/dL (0.00-1.30) H 09/25/20 09:43 Total Protein 6.6 g/dL (6.3-8.2) 09/19/20 06:10 Albumin 3.5 g/dL (3.9-5) L 09/19/20 06:10 Albumin/Globulin Ratio 1.1 % 09/19/20 06:10 Triglycerides 156 mg/dL (2-149) H 09/21/20 00:46 Cholesterol 139 mg/dL (50-199) 09/21/20 00:46 LDL Cholesterol Direct 85 mg/dL (50-130) 09/21/20 00:46 HDL Cholesterol 22 mg/dL (40-59) L 09/21/20 00:46 Cholesterol/HDL Ratio 6.31 % 09/21/20 00:46 Procalcitonin 0.11 ng/mL (<0.15) 09/25/20 09:43 TSH 34.670 mlU/mL (0.270-4.200) H 09/15/20 18:46 Free T4 0.10 ng/dL (0.76-1.46) L 09/15/20 19:43 Arterial Blood Glucose 336 mg/dL (65-95) H 09/25/20 13:38 Arterial Blood Ionized Calcium 4.4 mg/dL (4.6-5.3) L 09/25/20 13:38 Urine Color Yellow (Yellow) 09/15/20 Unknown Urine Turbidity Cloudy (Clear) 09/15/20 Unknown Urine pH 7.0 (5.0-7.0) 09/15/20 Unknown Ur Specific [place] 1.017 (1.003-1.030) 09/15/20 Unknown Urine Protein 100 mg/dl mg/dL (Negative) 09/15/20 Unknown Urine Glucose (UA) >=500 mg/dL (Negative) 09/15/20 Unknown Urine Ketones 20 mg/dL (Negative) 09/15/20 Unknown Urine Blood Lg (Negative) 09/15/20 Unknown Urine Nitrite Neg (Negative) 09/15/20 Unknown Urine Bilirubin Neg (Negative) 09/15/20 Unknown Urine Urobilinogen < 2.0 mg/dL (<2.0) 09/15/20 Unknown Ur Leukocyte Esterase Lg (Negative) 09/15/20 Unknown Urine WBC (Auto) > 182.0 /HPF (0.0-6.0) H 09/15/20 Unknown Urine RBC (Auto) 92.0 /HPF (0.0-6.0) 09/15/20 Unknown U Epithel Cells (Auto) 4.0 /HPF (0-13.0) 09/15/20 Unknown Urine Bacteria (Auto) 3+ /HPF (Negative) 09/15/20 Unknown Urine WBC Clumps 2+ /HPF 09/15/20 Unknown Urine Yeast (Budding) 3+ /HPF 09/15/20 Unknown Salicylates < 0.3 mg/dL (2.8-20.0) L 09/15/20 18:46 Urine Opiates Screen Presumptive negative 09/15/20 Unknown Urine Methadone Screen Presumptive negative 09/15/20 Unknown Acetaminophen 5.0 ug/mL (10.0-30.0) L 09/16/20 21:38 Ur Barbiturates Screen Presumptive negative 09/15/20 Unknown Ur Phencyclidine Scrn Presumptive negative 09/15/20 Unknown Ur Amphetamines Screen Presumptive negative 09/15/20 Unknown U Benzodiazepines Scrn Presumptive negative 09/15/20 Unknown Urine Cocaine Screen Presumptive negative 09/15/20 Unknown U Marijuana (THC) Screen Presumptive negative 09/15/20 Unknown Drugs of Abuse Note Disclamer 09/15/20 Unknown Plasma/Serum Alcohol < 0.01 % (0-0.07) 09/15/20 18:46 Coronavirus (PCR) Positive (Negative) A 09/16/20 08:00 Laura/IV: Voiding Method Indwelling Catheter Active Medications - Current Medications Current Medications: Generic Name Dose Route Start Last Admin Trade Name Freq PRN Reason Stop Dose Admin Albuterol 2.5 mg 09/20/20 12:28 Albuterol 2.5 Mg/3 Ml Nebu IH Q4HRT PRN Shortness Of Breath Lipase/Protease/Amylase 1 each 09/22/20 08:06 Lipase 10,500/Protease 25,000/Amylase 43,750 (Units) Dr Young FEEDTUBE PRN PRN For Clogged Feeding Tube Ascorbic Acid 500 mg 09/22/20 22:00 09/25/20 09:27 Ascorbic Acid 500 Mg Tab PO 500 mg BID AMANDA Administration Aspirin 162 mg 09/21/20 15:00 09/25/20 09:27 Aspirin 81 Mg Tab Chew PO 162 mg QDAY AMANDA Administration Cholecalciferol 5,000 unit 09/23/20 10:00 09/24/20 09:31 Cholecalciferol (Vit D3) 5,000 Unit Tab PO 5,000 unit DAILY AMANDA Administration Clopidogrel Bisulfate 75 mg 09/22/20 10:00 09/25/20 09:30 Clopidogrel 75 Mg Tab PO 75 mg QDAY AMANDA Administration Dextrose 50 ml 09/16/20 21:24 Dextrose 50% In Water (25gm) 50 Ml Syringe IV Q30MIN PRN Hypoglycemia Protocol Doxazosin Mesylate 1 mg 09/24/20 22:00 09/24/20 21:56 Doxazosin 1 Mg Tab PO 1 mg QHS AMANDA Administration Famotidine 20 mg 09/22/20 10:00 09/25/20 09:27 Famotidine 20 Mg Tab PO 20 mg BID AMANDA Administration Fentanyl 50 mcg 09/20/20 19:02 Fentanyl 100 Mcg/2 Ml Inj IV Q10MIN PRN ANALGESIA Heparin Sodium (Porcine) 3,100 unit 09/21/20 01:42 Heparin 10,000 Units/10 Ml Vial 40 unit/kg (3100 unit) IV Q6H PRN Anti-Xa Assay < 0.1 units/ml Hydrophilic Ointment 1 applic 09/20/20 19:02 Lip Therapy Vaseline TP Q2HR PRN Dry Lips Fentanyl Citrate 2,000 mcg in 100 mls @ 3.925 mls/hr 09/20/20 20:00 09/25/20 09:31 Fentanyl Drip Premix IV 1 mcg/kg/hr TITR AMANDA 3.925 mls/hr Administration Protocol 1 MCG/KG/HR Heparin Sodium/Sodium Chloride 25,000 unit in 500 mls @ 20 mls/hr 09/21/20 02:00 09/25/20 15:43 Heparin/ 0.45% Nacl-25,000 Unit/500 Ml IV 600 units/hr TITRATE AMANDA 12 mls/hr Titration Protocol 1,000 UNITS/HR Insulin Glargine 25 units 09/26/20 08:00 Insulin Glargine 100 Units/Ml SUB-Q QAMDIAB [facility] Insulin Glargine 10 units 09/25/20 22:00 Insulin Glargine 100 Units/Ml SUB-Q 09/25/20 22:01 ONCE ONE Insulin Human Regular 0 units 09/23/20 12:00 09/25/20 13:29 Insulin Regular, Human 100 Units/1 Ml SUB-Q 8 units Q6H [facility] Administration Protocol Levothyroxine Sodium 125 mcg 09/18/20 06:00 09/25/20 09:31 Levothyroxine 125 Mcg Tab PO 125 mcg DAILY@0600 [facility] Administration Magnesium Hydroxide 30 ml 09/15/20 22:09 Magnesium Hydroxide (Mom) Oral Liqd Udc PO Q4H PRN Constipation Metoprolol Tartrate 2.5 mg 09/21/20 15:00 09/25/20 13:28 Metoprolol Tartrate 5 Mg/5 Ml Inj IV 2.5 mg Q8HR AMANDA Administration Multi-Ingred Cream/Lotion/Oil/Oint 1 applic 09/20/20 19:02 Mineral Oil/Petrolatum, White Ophth Oint 3.5 Gm OU Q4HR PRN Dry Eye(s) Naloxone HCl 0.1 mg 09/15/20 18:36 Naloxone 0.4 Mg/1 Ml Inj IV Q2MIN PRN Res Rate </= 8 or 02 SAT < 92% Nitroglycerin 0.5 inch 09/22/20 06:00 09/25/20 13:30 Nitroglycerin 2% Oint 1 Gm TP 0.5 inch BIDNTG AMANDA Administration Protocol Ondansetron HCl 4 mg 09/15/20 22:09 Ondansetron 4 Mg/2 Ml Inj IV Q8H PRN Nausea And Vomiting Senna 8.8 mg 09/24/20 22:00 09/24/20 21:56 Sennosides Oral Liqd 8.8 Mg/5 Ml Oral Liqd PO 8.8 mg QHS AMANDA Administration Sertraline HCl 25 mg 09/17/20 12:00 09/25/20 09:31 Sertraline 25 Mg Tab PO 25 mg QDAY AMANDA Administration Simple Syrup 15 ml 09/22/20 08:06 Simple Syrup 15 Ml FEEDTUBE PRN PRN Hypoglycemia Simple Syrup 30 ml 09/22/20 08:06 Simple Syrup 15 Ml FEEDTUBE PRN PRN Hypoglycemia Sodium Bicarbonate 325 mg 09/22/20 08:06 Sodium Bicarbonate 325 Mg Tab FEEDTUBE PRN PRN For Clogged Feeding Tube Sodium Chloride 10 ml 09/16/20 10:00 09/25/20 09:33 Sodium Chloride 0.9% 10 Ml Flush Syringe IV 10 ml BID AMANDA Administration Sodium Chloride 10 ml 09/15/20 22:09 Sodium Chloride 0.9% 10 Ml Flush Syringe IV PRN PRN LINE FLUSH Sodium Chloride 5 ml 09/25/20 02:30 Sodium Chloride 0.9% 500 Ml Ivpb IV DIRECT PRN [employer] Zinc Sulfate 220 mg 09/22/20 22:00 09/25/20 09:30 Zinc Sulfate 220 Mg Cap PO 220 mg BID AMANDA Administration Nutrition/Malnutrition Assess - Dietary Evaluation Nutrition/Malnutrition Findings: Nutrition Notes Start: 09/16/20 15:13 Freq: Status: Active Protocol: Document 09/24/20 11:28 (Rec: 09/24/20 11:33 [id number]) Nutrition Notes Initial or Follow up Reassessment Current Diagnosis Diabetes,Hypertension, Respiratory Failure Other Pertinent Diagnosis pneu, drug OD, COVID-19 Current Diet Vital AF 1.2 at 60 ml/hr Labs/Tests POC BG 316-392 Pertinent Medications Humalin Decadron Height 5 ft 6 in Weight 78.5 kg Gaffney Body Weight (kg) 59.09 BMI 27.9 Weight Status Appropriate Subjective/Other Information F/u for TF tolerance. Pt tolerating at goal rate. Per [employer] [facility]ad, insulin will be increased. If BG remain high, will change TF. Percent of energy/protein needs met: 100%/100% Burn Absent Trauma Absent Current % PO Negligible Minimum of two criteria No physical signs of malnutrition #1 Nutrition Diagnosis Inadequate oral intake Diagnosis Progress(for reassessment Continues documentation) Is patient on ventilator? Yes Is Patient Ambulatory and/or Out of Bed No REE-([place]-St. Jeor-confined to bed) [phone] Calculation Used for Recommendations [facility] Additional Notes Protein: (1.2-2g/kg) 94-157g Fluid: 1 ml/kcal Nutrition Intervention Change Diet Order: Continue TF Nutrition Support: Vital AF 1.2 at 60 ml/hr Flush 75 ml q4h or per MD Kcal 1,728 Protein (gm) 108 Fluid (mL) 1,168 Goal #1 Meet at least 75% of energy and protein needs via TF Anticipated Discharge Needs: Unable to determine at this time Follow-Up By: 09/26/20 Additional Comments F/u: BG and stable TF
[2020-09-25] MEDS: CHOLECALCIFEROL (VIT D3) 5,000 UNIT TAB PO SCH (17:39)
--- NOTE | 2020-09-25 17:55 | Progress Note ---
Assessment and Plan Cultures: Blood culture no growth so far Covid PUI positive A/P: 54-year-old female past medical history bipolar, hypothyroidism, hyperten aubree, diabetes now with: #Acute hypoxic respiratory failure: Likely secondary to pneumonia, procalcitonin was normal. Now on the vent. Actemra 09/24/2020 #Covid pneumonia: PCR positive #Bilateral pneumonia #Drug overdose: With trazodone Recs: -Complete 5 days Remdesivir -Steroids per primary for 10 days -Actemra given 09/24/2020 -procalcitonin remains normal, no need for antibiotics. Thank you for the consult, we will continue to follow. Dominique Patel MD [facility] O: [phone] F: [phone] Subjective Date of service: 09/25/20 Principal diagnosis: Ac encephalopathy; CAP; Sepsis; COVID-19 infxn; Ac hypoxemic resp failure Interval history: Spiked a fever last night, however afebrile since then. Normal white count. Remains on the vent Imaging personally reviewed: Chest x-ray: Moderate airspace disease, worsening since yesterday. Objective - Exam Narrative Exam: Physical exam deferred to reduce risk of transmission of COVID-19. Please refer to primary team's note. - Constitutional Vitals: Vital Signs Temp Pulse Resp BP Pulse Ox 98.4 F 88 18 113/53 94 09/25/20 16:00 09/25/20 17:30 09/25/20 17:30 09/25/20 17:30 09/25/20 17:30 Temperature -Last 24 Hours Temperature 98.4 F Temperature 98.0 F Temperature 98.7 F Temperature 98.6 F Temperature 99.9 F Temperature 101.3 F Temperature 100.0 F - Labs CBC & Chem 7: 09/25/20 09:43 09/25/20 09:43 Labs: Abnormal lab results 09/24/20 09/25/20 09/25/20 Range/Units 23:41 05:11 09:43 RDW 15.4 H (13.2-15.2) % D-Dimer (0-234) ng/mlDDU Heparin Anti-Xa Level (0.3-0.7) U.I./ml POC ABG pCO2 (32.0-48.0) mmHg POC ABG pO2 (83-108) mmHg ABG Oxyhemoglobin (94-98) ABG Glucose (65-95) mg/dL Carbon Dioxide (22-30) mmol/L BUN (7-17) mg/dL Glucose (65-100) mg/dL POC Glucose 349 H 319 H (70-105) mg/dL Calcium (8.4-10.2) mg/dL Ferritin (10.0-200.0) ng/mL Lactate Dehydrogenase (91-180) units/L C-Reactive Protein (0.00-1.30) mg/dL Arterial Blood Glucose (65-95) mg/dL Arterial Blood Ionized Calcium (4.6-5.3) mg/dL 09/25/20 09/25/20 09/25/20 Range/Units 09:43 09:43 09:43 RDW (13.2-15.2) % D-Dimer 1481.03 H (0-234) ng/mlDDU Heparin Anti-Xa Level (0.3-0.7) U.I./ml POC ABG pCO2 (32.0-48.0) mmHg POC ABG pO2 (83-108) mmHg ABG Oxyhemoglobin (94-98) ABG Glucose (65-95) mg/dL Carbon Dioxide 33 H (22-30) mmol/L BUN 26 H (7-17) mg/dL Glucose 306 H (65-100) mg/dL POC Glucose (70-105) mg/dL Calcium 8.1 L (8.4-10.2) mg/dL Ferritin 670.5 H (10.0-200.0) ng/mL Lactate Dehydrogenase 948 H (91-180) units/L C-Reactive Protein 6.70 H (0.00-1.30) mg/dL Arterial Blood Glucose (65-95) mg/dL Arterial Blood Ionized Calcium (4.6-5.3) mg/dL 09/25/20 09/25/20 09/25/20 Range/Units 09:43 11:52 13:38 RDW (13.2-15.2) % D-Dimer (0-234) ng/mlDDU Heparin Anti-Xa Level 0.10 L (0.3-0.7) U.I./ml POC ABG pCO2 60.9 H (32.0-48.0) mmHg POC ABG pO2 59.7 L (83-108) mmHg ABG Oxyhemoglobin 90.2 L (94-98) ABG Glucose 336 H (65-95) mg/dL Carbon Dioxide (22-30) mmol/L BUN (7-17) mg/dL Glucose (65-100) mg/dL POC Glucose 313 H (70-105) mg/dL Calcium (8.4-10.2) mg/dL Ferritin (10.0-200.0) ng/mL Lactate Dehydrogenase (91-180) units/L C-Reactive Protein (0.00-1.30) mg/dL Arterial Blood Glucose 336 H (65-95) mg/dL Arterial Blood Ionized Calcium 4.4 L (4.6-5.3) mg/dL 09/25/20 Range/Units 17:37 RDW (13.2-15.2) % D-Dimer (0-234) ng/mlDDU Heparin Anti-Xa Level (0.3-0.7) U.I./ml POC ABG pCO2 (32.0-48.0) mmHg POC ABG pO2 (83-108) mmHg ABG Oxyhemoglobin (94-98) ABG Glucose (65-95) mg/dL Carbon Dioxide (22-30) mmol/L BUN (7-17) mg/dL Glucose (65-100) mg/dL POC Glucose 379 H (70-105) mg/dL Calcium (8.4-10.2) mg/dL Ferritin (10.0-200.0) ng/mL Lactate Dehydrogenase (91-180) units/L C-Reactive Protein (0.00-1.30) mg/dL Arterial Blood Glucose (65-95) mg/dL Arterial Blood Ionized Calcium (4.6-5.3) mg/dL
[2020-09-25] MEDS: DOXAZOSIN 1 MG TAB PO SCH (21:18)
[2020-09-25] MEDS: SENNOSIDES ORAL LIQD 8.8 MG/5 ML ORAL LIQD PO SCH (21:25)
[2020-09-25] MEDS ORDERED: INSULIN GLARGINE 100 UNITS/ML SUB-Q ONE (22:00)
[2020-09-26] MEDS: INSULIN REGULAR, HUMAN 100 UNITS/1 ML SUB-Q SCH ×4 (00:19→18:08)
[2020-09-26 02:51] LABS: Hematocrit 38.3 % (30.3-42.9); Hemoglobin 12.4 gm/dl (10.1-14.3); Mean Corpuscular HGB Conc 32 % (30-34); Mean Corpuscular Volume 95 fl (79-97); Platelet Count 221 K/mm3 (140-440); Red Blood Count 4.05 M/mm3 (3.65-5.03); Red Cell Distribution Width 15.2 % (13.2-15.2)
[2020-09-26 03:00] LABS: Blood Urea Nitrogen 27 mg/dL (7-17); Calcium 7.9 mg/dL (8.4-10.2); Hemolysis Index 7
[2020-09-26 03:06] LABS: BUN/Creatinine Ratio 45
--- NOTE | 2020-09-26 04:30 | XRay Report ---
CHEST - 1 VIEW INDICATION: follow up respiratory failure COMPARISON: Yesterday FINDINGS: SUPPORT DEVICES: Stable support device positioning. HEART: Stable cardiomediastinal silhouette. LUNGS/PLEURA: Persistent moderate patchy multifocal airspace disease. ADDITIONAL FINDINGS: None. IMPRESSION: Unchanged exam. Signer Name: Dale Naranjo MD Signed: 09/26/2020 4:26 AM Workstation Name: [id number]
[2020-09-26] MEDS: NITROGLYCERIN 2% OINT 1 GM TP SCH ×2 (05:12→13:20)
[2020-09-26] MEDS: METOPROLOL TARTRATE 5 MG/5 ML INJ IV SCH ×3 (05:13→21:12)
[2020-09-26] MEDS: LEVOTHYROXINE 125 MCG TAB PO SCH (05:15)
[2020-09-26] MEDS ORDERED: SODIUM PHOSPHATE 30 MMOL in SODIUM CHLORIDE 0.9% 500 ML 500 ML IV ONE (09:00)
[2020-09-26] MEDS: fentaNYL DRIP Premix 2,000 MCG/100 ML BAG IV SCH ×2 (09:45→19:47)
[2020-09-26] MEDS: INSULIN GLARGINE 100 UNITS/ML SUB-Q SCH ×2 (09:52→21:12)
[2020-09-26] MEDS: HEPARIN/ 0.45% NACL DRIP 25,000 UNIT/500 ML BAG IV SCH (09:52)
[2020-09-26] MEDS: ASPIRIN 81 MG TAB CHEW PO SCH (09:53)
[2020-09-26] MEDS: CLOPIDOGREL 75 MG TAB PO SCH (09:53)
[2020-09-26] MEDS: ASCORBIC ACID 500 MG TAB PO SCH ×2 (09:53→21:11)
[2020-09-26] MEDS: SERTRALINE 25 MG TAB PO SCH (09:53)
[2020-09-26] MEDS: ZINC SULFATE 220 MG CAP PO SCH ×2 (09:53→21:11)
[2020-09-26] MEDS: FAMOTIDINE 20 MG TAB PO SCH ×2 (09:53→21:11)
--- NOTE | 2020-09-26 11:43 | Progress Note ---
Assessment and Plan Respiratory failure due to COVID pneumonia Acute Non-ST elevation myocardial infarction during hospital course Echocardiogram shows well-preserved left ventricular systolic function, EF 50- 55%. Recommendations: Continue medical therapy for underlying coronary artery disease as tolerated. Patient is not a candidate for aggressive and invasive cardiac therapies, in the setting of respiratory failure due to severe viral pneumonia and sepsis. Supportive cardiac management. Subjective Date of service: 09/26/20 Principal diagnosis: Ac encephalopathy; CAP; Sepsis; COVID-19 infxn; Ac hypoxemic resp failure Interval history: Remains unresponsive on the ventilator. Objective Vital Signs Temp Pulse Pulse Resp BP Pulse Ox 09/26/20 07:28 100.3 F H 09/26/20 07:00 122 H 17 117/75 93 09/26/20 06:45 123 H 16 109/69 93 09/26/20 06:30 122 H 17 109/69 93 09/26/20 06:15 120 H 18 109/70 92 09/26/20 06:00 121 H 16 109/70 91 09/26/20 05:45 131 H 14 126/60 93 09/26/20 05:30 129 H 21 126/60 93 09/26/20 05:15 127 H 18 136/61 93 09/26/20 05:13 125 H 136/61 09/26/20 05:12 128 H 138/61 09/26/20 05:00 128 H 16 136/61 93 09/26/20 04:45 129 H 18 133/58 92 09/26/20 04:31 130 H 18 133/58 93 09/26/20 04:15 131 H 16 118/55 92 09/26/20 04:00 101 H 90 10 L 108/58 94 09/26/20 03:45 124 H 11 L 114/58 92 09/26/20 03:30 124 H 10 L 114/58 92 09/26/20 03:15 125 H 11 L 124/68 92 09/26/20 03:00 124 H 11 L 124/68 92 09/26/20 02:45 119 H 14 131/59 92 09/26/20 02:30 119 H 15 129/59 92 09/26/20 02:15 117 H 17 123/54 92 09/26/20 02:00 116 H 19 123/54 93 09/26/20 01:45 114 H 14 114/55 92 09/26/20 01:30 112 H 16 123/54 92 09/26/20 01:15 113 H 15 114/55 91 09/26/20 01:00 112 H 16 114/55 91 09/26/20 00:45 115 H 108/55 91 09/26/20 00:30 111 H 9 L 108/55 91 09/26/20 00:15 110 H 17 111/45 91 09/26/20 00:00 97.8 F 116 H 90 15 131/59 92 09/25/20 23:45 103 H 17 116/58 93 09/25/20 23:30 103 H 18 99/54 92 09/25/20 23:15 103 H 14 107/57 92 09/25/20 23:00 101 H 16 116/58 91 09/25/20 22:45 97 H 15 112/48 92 09/25/20 22:30 95 H 16 107/57 93 09/25/20 22:15 93 H 17 112/48 93 09/25/20 22:00 94 H 16 112/48 92 09/25/20 21:45 96 H 16 111/67 91 09/25/20 21:30 96 H 19 115/50 93 09/25/20 21:22 94 H 111/57 09/25/20 21:18 95 H 111/57 09/25/20 21:15 96 H 17 114/51 91 09/25/20 21:00 94 H 16 111/67 90 09/25/20 20:45 108 H 14 113/59 92 09/25/20 20:30 95 H 17 113/59 94 09/25/20 20:15 94 H 15 114/51 94 09/25/20 20:07 93 H 18 114/51 94 09/25/20 20:00 93 H 90 18 114/51 94 09/25/20 19:45 94 H 19 116/52 94 09/25/20 19:30 92 H 17 116/52 94 09/25/20 19:15 92 H 18 108/53 95 09/25/20 19:00 90 17 108/53 95 09/25/20 18:45 90 17 112/47 93 09/25/20 18:30 89 17 112/47 94 09/25/20 18:15 89 17 116/51 94 09/25/20 18:00 88 18 118/54 94 09/25/20 17:45 86 17 113/53 94 09/25/20 17:30 88 18 113/53 94 09/25/20 17:15 83 18 116/51 94 09/25/20 17:00 82 18 116/51 94 09/25/20 16:45 82 17 109/54 93 09/25/20 16:30 82 18 109/54 94 09/25/20 16:15 83 17 101/52 94 09/25/20 16:05 92 09/25/20 16:00 98.4 F 82 17 101/52 94 09/25/20 15:46 82 106/52 94 09/25/20 15:45 81 18 106/52 94 09/25/20 15:30 82 18 106/52 93 09/25/20 15:15 84 16 126/74 90 09/25/20 15:01 86 17 126/74 90 09/25/20 14:45 75 17 122/48 92 09/25/20 14:30 76 17 122/48 91 09/25/20 14:15 77 18 114/57 91 09/25/20 14:01 84 16 114/57 89 09/25/20 13:45 75 18 113/51 91 09/25/20 13:30 74 18 113/51 91 09/25/20 13:28 85 114/56 09/25/20 13:15 74 18 115/48 92 09/25/20 13:00 72 18 115/48 91 09/25/20 12:45 73 18 116/53 90 09/25/20 12:30 73 18 116/53 91 09/25/20 12:15 73 18 107/49 94 09/25/20 12:00 98.0 F 75 18 107/49 91 09/25/20 11:45 71 18 112/53 93 - Physical Examination Narrative exam: Deferred due to COVID-19 isolation protocol. General: Other (Unresponsive, on the vent) Cardiac: Positive: Tachycardia - Labs and Meds CBC 09/26/20 Range/Units 02:23 WBC 11.4 H (4.5-11.0) K/mm3 RBC 4.05 (3.65-5.03) M/mm3 Hgb 12.4 (10.1-14.3) gm/dl Hct 38.3 (30.3-42.9) % Plt Count 221 (140-440) K/mm3 Comprehensive Metabolic Panel 09/26/20 Range/Units 02:23 Sodium 141 (137-145) mmol/L Potassium 4.6 (3.6-5.0) mmol/L Chloride 101.0 (98-107) mmol/L Carbon Dioxide 33 H (22-30) mmol/L BUN 27 H (7-17) mg/dL Creatinine 0.6 (0.6-1.2) mg/dL Glucose 316 H (65-100) mg/dL Calcium 7.9 L (8.4-10.2) mg/dL - Allied health notes Allied health notes reviewed: nursing
--- NOTE | 2020-09-26 12:39 | Progress Note ---
Assessment and Plan Acute toxic metabolic encephalopathy Severe sepsis Community acquired pneumonia coronavirus-19 infection Acute hypoxemic respiratory failure Hyponatremia at presentation Diabetes, poorly controlled Lactic acidosis Urinary tract infection Tobacco use disorder - follow lower extremity dopplers - add Flomax and discontinue Laura catheter - prn bladder scans +/- straight cath - continue to wean supplemental oxygen for target O2 sat's > 92% acutely - continue care as below otherwise; - continue Daily SAT and SBT assessment as tolerated - VAP bundle addressed - continue lung protective strategies - continue bronchodilators with pulmonary hygiene per RT - wean per pulmonary driven protocols otherwise - continue accuchecks with glycemic control per SSI (While critically ill target blood glucose of 140-180 mg/dL; avoid hypoglycemia) - sedation prn for target RASS -1 to -2 - avoid nephrotoxins, renally dose all medications - continue to avoid benzodiazepine's, reduce the possibility of delirium - complete anti-infective's per ID rec's - prn analgesia per CPOT score - Maintenance of sleep-wake cycle, avoid delirium - continue enteral nutritional support at goal rate as tolerated - G.I. & VTE prophylaxis - PT/OT/ROM exercises - continue mobility protocols for pressure ulcer prophylaxis - Monitor hemodynamics closely - continue other care per attending / other consultants - discharge planning ongoing concurrently COVID SPECIFIC INTERVENTIONS - continue contact and airborne isolation - Remdesivir as per ID/Pulmonary developed protocols (ordered) - continue systemic steroids for severe COVID-19 infection - follow repeat COVID tests results - zinc and vitamin C supplementation - Monitor inflammatory markers per facility protocol - ferritin, D-dimer, CRP - therapeutic anticoagulation per system Protocol based on d-dimer and clinical considerations (not indicated) .... Re-evaluate in am & prn CONDITION: CRITICAL PROGNOSIS: GUARDED CODE STATUS: FULL CODE The high probability of a clinically significant, sudden or life-threatening deterioration of the [respiratory, cardiovascular & neurologic] system(s) required my full and direct attention, intervention and personal management. The aggregate critical care time was [32] minutes without overlap. Time includes spent on; [x] Data Review and interpretation [x] Patient assessment and monitoring of vital signs [x] Documentation [x] Medication orders and management Subjective Date of service: 09/26/20 Principal diagnosis: Ac encephalopathy; CAP; Sepsis; COVID-19 infxn; Ac hypoxemic resp failure Interval history: Patient is seen today for: Acute toxic metabolic encephalopathy; CAP; Severe sepsis; COVID-19 infection; Acute hypoxemic respiratory failure UTI; DM II Seen and examined at bedside; 24hour events reviewed; nursing and respiratory care staff consulted; no adverse overnight events reported to me; resting in bed; remains on MVS; FiO2 at 90%; AMS is persistent; no emesis or overt aspiration; making urine Objective Vital Signs - 12hr 09/26/20 09/26/20 09/26/20 00:45 01:00 01:15 Temperature Pulse Rate 115 H 112 H 113 H Pulse Rate [ From Monitor] Respiratory 16 15 Rate Blood Pressure 108/55 114/55 114/55 O2 Sat by Pulse 91 91 91 Oximetry 09/26/20 09/26/20 09/26/20 01:30 01:45 02:00 Temperature Pulse Rate 112 H 114 H 116 H Pulse Rate [ From Monitor] Respiratory 16 14 19 Rate Blood Pressure 123/54 114/55 123/54 O2 Sat by Pulse 92 92 93 Oximetry 09/26/20 09/26/20 09/26/20 02:15 02:30 02:45 Temperature Pulse Rate 117 H 119 H 119 H Pulse Rate [ From Monitor] Respiratory 17 15 14 Rate Blood Pressure 123/54 129/59 131/59 O2 Sat by Pulse 92 92 92 Oximetry 09/26/20 09/26/20 09/26/20 03:00 03:15 03:30 Temperature Pulse Rate 124 H 125 H 124 H Pulse Rate [ From Monitor] Respiratory 11 L 11 L 10 L Rate Blood Pressure 124/68 124/68 114/58 O2 Sat by Pulse 92 92 92 Oximetry 09/26/20 09/26/20 09/26/20 03:45 04:00 04:15 Temperature Pulse Rate 124 H 101 H 131 H Pulse Rate [ 90 From Monitor] Respiratory 11 L 10 L 16 Rate Blood Pressure 114/58 108/58 118/55 O2 Sat by Pulse 92 94 92 Oximetry 09/26/20 09/26/20 09/26/20 04:31 04:45 05:00 Temperature Pulse Rate 130 H 129 H 128 H Pulse Rate [ From Monitor] Respiratory 18 18 16 Rate Blood Pressure 133/58 133/58 136/61 O2 Sat by Pulse 93 92 93 Oximetry 09/26/20 09/26/20 09/26/20 05:12 05:13 05:15 Temperature Pulse Rate 128 H 125 H 127 H Pulse Rate [ From Monitor] Respiratory 18 Rate Blood Pressure 138/61 136/61 136/61 O2 Sat by Pulse 93 Oximetry 09/26/20 09/26/20 09/26/20 05:30 05:45 06:00 Temperature Pulse Rate 129 H 131 H 121 H Pulse Rate [ From Monitor] Respiratory 21 14 16 Rate Blood Pressure 126/60 126/60 109/70 O2 Sat by Pulse 93 93 91 Oximetry 09/26/20 09/26/20 09/26/20 06:15 06:30 06:45 Temperature Pulse Rate 120 H 122 H 123 H Pulse Rate [ From Monitor] Respiratory 18 17 16 Rate Blood Pressure 109/70 109/69 109/69 O2 Sat by Pulse 92 93 93 Oximetry 09/26/20 09/26/20 09/26/20 07:00 07:15 07:28 Temperature 100.3 F H Pulse Rate 122 H 123 H Pulse Rate [ From Monitor] Respiratory 17 17 Rate Blood Pressure 117/75 117/75 O2 Sat by Pulse 93 92 Oximetry 09/26/20 09/26/20 09/26/20 07:30 07:45 08:00 Temperature Pulse Rate 123 H 126 H 126 H Pulse Rate [ From Monitor] Respiratory 19 11 L 17 Rate Blood Pressure 127/65 127/65 134/71 O2 Sat by Pulse 93 93 93 Oximetry 09/26/20 09/26/20 09/26/20 08:15 08:30 08:45 Temperature Pulse Rate 127 H 127 H 128 H Pulse Rate [ From Monitor] Respiratory 10 L 15 11 L Rate Blood Pressure 134/71 130/64 130/64 O2 Sat by Pulse 93 93 93 Oximetry 09/26/20 09/26/20 09/26/20 09:00 09:15 09:30 Temperature Pulse Rate 128 H 127 H 128 H Pulse Rate [ From Monitor] Respiratory 14 11 L 14 Rate Blood Pressure 135/57 135/57 136/67 O2 Sat by Pulse 93 93 93 Oximetry 09/26/20 09/26/20 09/26/20 09:45 10:00 10:15 Temperature Pulse Rate 130 H 129 H 127 H Pulse Rate [ From Monitor] Respiratory 10 L 16 19 Rate Blood Pressure 136/67 124/60 124/60 O2 Sat by Pulse 93 94 94 Oximetry 09/26/20 09/26/20 09/26/20 10:30 10:45 11:00 Temperature Pulse Rate 125 H 123 H 123 H Pulse Rate [ From Monitor] Respiratory 17 18 16 Rate Blood Pressure 119/53 119/53 123/57 O2 Sat by Pulse 94 94 94 Oximetry 09/26/20 09/26/20 09/26/20 11:15 11:30 11:45 Temperature Pulse Rate 119 H 117 H 116 H Pulse Rate [ From Monitor] Respiratory 16 16 19 Rate Blood Pressure 123/57 122/56 122/56 O2 Sat by Pulse 94 96 96 Oximetry 09/26/20 12:26 Temperature 99.3 F Pulse Rate Pulse Rate [ From Monitor] Respiratory Rate Blood Pressure O2 Sat by Pulse Oximetry Constitutional: no acute distress, other (middle aged female with mildly increased respiratory effort at rest on MVS) Eyes: non-icteric ENT: oropharynx moist, other (ETT 26 cm JOSHUA) Neck: supple, no lymphadenopathy Effort: mildly labored Ascultation: Bilateral: diminished breath sounds, rhonchi Percussion: Bilateral: not dull Cardiovascular: regular rate and rhythm Gastrointestinal: normoactive bowel sounds, soft, non-tender, non-distended (protuberant) Integumentary: normal Extremities: no cyanosis, no edema, pink and warm, pulses normal Neurologic: non-focal exam (grossly), pupils equal and round, motor strength normal and, unable to assess, other (sedated) Psychiatric: other (lethargic) CBC and BMP: 09/27/20 04:47 09/27/20 04:47 ABG, PT/INR, D-dimer: ABG ABG pH 7.352 (7.320-7.450) 09/26/20 03:53 POC ABG pCO2 58.5 mmHg (32.0-48.0) H 09/26/20 03:53 POC ABG pO2 69.5 mmHg (83-108) L 09/26/20 03:53 POC ABG HCO3 31.7 09/26/20 03:53 ABG O2 Saturation 94.4 (0-100) 09/26/20 03:53 PT/INR, D-dimer PT 20.0 Sec. (12.2-14.9) H 09/21/20 02:14 INR 1.65 (0.87-1.13) H 09/21/20 02:14 D-Dimer 1481.03 ng/mlDDU (0-234) H 09/25/20 09:43 Abnormal lab findings: Abnormal Labs 09/15/20 09/15/20 09/15/20 18:46 18:46 18:46 WBC Hgb 14.4 H MCH MCHC RDW Lymph % (Auto) Lymph # (Auto) Seg Neutrophils % Seg Neutrophils # PT INR APTT D-Dimer Heparin Anti-Xa Level ABG pH POC ABG pCO2 POC ABG pO2 ABG Oxyhemoglobin ABG Sodium ABG Potassium ABG Chloride ABG Glucose Sodium 128 L Potassium 3.2 L Chloride 89.3 L Carbon Dioxide BUN Creatinine Glucose 388 H POC Glucose Lactic Acid Calcium 8.2 L Phosphorus Ferritin AST 69 H Ammonia Lactate Dehydrogenase Total Creatine Kinase CK-MB (CK-2) Troponin T C-Reactive Protein Albumin 3.6 L Triglycerides HDL Cholesterol TSH 34.670 H Free T4 Arterial Blood Glucose Arterial Blood Ionized Calcium Urine WBC (Auto) Salicylates Acetaminophen Coronavirus (PCR) 09/15/20 09/15/20 09/15/20 18:46 18:46 18:46 WBC Hgb MCH MCHC RDW Lymph % (Auto) Lymph # (Auto) Seg Neutrophils % Seg Neutrophils # PT INR APTT D-Dimer Heparin Anti-Xa Level ABG pH POC ABG pCO2 POC ABG pO2 ABG Oxyhemoglobin ABG Sodium ABG Potassium ABG Chloride ABG Glucose Sodium Potassium Chloride Carbon Dioxide BUN Creatinine Glucose POC Glucose Lactic Acid Calcium Phosphorus Ferritin AST Ammonia 23.0 L Lactate Dehydrogenase Total Creatine Kinase CK-MB (CK-2) Troponin T C-Reactive Protein Albumin Triglycerides HDL Cholesterol TSH Free T4 Arterial Blood Glucose Arterial Blood Ionized Calcium Urine WBC (Auto) Salicylates < 0.3 L Acetaminophen 9.1 L Coronavirus (PCR) 09/15/20 09/15/20 09/15/20 19:38 19:40 19:43 WBC Hgb MCH MCHC RDW Lymph % (Auto) Lymph # (Auto) Seg Neutrophils % Seg Neutrophils # PT INR APTT D-Dimer Heparin Anti-Xa Level ABG pH POC ABG pCO2 POC ABG pO2 ABG Oxyhemoglobin ABG Sodium ABG Potassium ABG Chloride ABG Glucose Sodium Potassium Chloride Carbon Dioxide BUN Creatinine Glucose POC Glucose 398 H Lactic Acid 2.70 H* Calcium Phosphorus Ferritin AST Ammonia Lactate Dehydrogenase Total Creatine Kinase CK-MB (CK-2) Troponin T C-Reactive Protein Albumin Triglycerides HDL Cholesterol TSH Free T4 0.10 L Arterial Blood Glucose Arterial Blood Ionized Calcium Urine WBC (Auto) Salicylates Acetaminophen Coronavirus (PCR) 09/15/20 09/15/20 09/16/20 20:02 Unknown 04:47 WBC Hgb 14.8 H MCH 33 H MCHC 36 H RDW Lymph % (Auto) 7.3 L Lymph # (Auto) 0.8 L Seg Neutrophils % 85.7 H Seg Neutrophils # 8.9 H PT INR APTT D-Dimer Heparin Anti-Xa Level ABG pH POC ABG pCO2 31.1 L POC ABG pO2 46.9 L ABG Oxyhemoglobin 82.8 L ABG Sodium 129.8 L ABG Potassium 3.1 L ABG Chloride ABG Glucose 374 H Sodium Potassium Chloride Carbon Dioxide BUN Creatinine Glucose POC Glucose Lactic Acid Calcium Phosphorus Ferritin AST Ammonia Lactate Dehydrogenase Total Creatine Kinase CK-MB (CK-2) Troponin T C-Reactive Protein Albumin Triglycerides HDL Cholesterol TSH Free T4 Arterial Blood Glucose 374 H Arterial Blood Ionized Calcium Urine WBC (Auto) > 182.0 H Salicylates Acetaminophen Coronavirus (PCR) 09/16/20 09/16/20 09/16/20 04:47 07:20 08:00 WBC Hgb MCH MCHC RDW Lymph % (Auto) Lymph # (Auto) Seg Neutrophils % Seg Neutrophils # PT INR APTT D-Dimer Heparin Anti-Xa Level ABG pH POC ABG pCO2 POC ABG pO2 ABG Oxyhemoglobin ABG Sodium ABG Potassium ABG Chloride ABG Glucose Sodium 135 L D Potassium Chloride 94.1 L Carbon Dioxide BUN Creatinine Glucose 418 H POC Glucose 403 H Lactic Acid Calcium 8.3 L Phosphorus Ferritin AST Ammonia Lactate Dehydrogenase Total Creatine Kinase CK-MB (CK-2) Troponin T C-Reactive Protein Albumin Triglycerides HDL Cholesterol TSH Free T4 Arterial Blood Glucose Arterial Blood Ionized Calcium Urine WBC (Auto) Salicylates Acetaminophen Coronavirus (PCR) Positive A 09/16/20 09/16/20 09/16/20 11:43 16:17 21:38 WBC Hgb MCH MCHC RDW Lymph % (Auto) Lymph # (Auto) Seg Neutrophils % Seg Neutrophils # PT INR APTT D-Dimer 702.65 H Heparin Anti-Xa Level ABG pH POC ABG pCO2 POC ABG pO2 ABG Oxyhemoglobin ABG Sodium ABG Potassium ABG Chloride ABG Glucose Sodium Potassium Chloride Carbon Dioxide BUN Creatinine Glucose POC Glucose 417 H 353 H Lactic Acid Calcium Phosphorus Ferritin AST Ammonia Lactate Dehydrogenase Total Creatine Kinase CK-MB (CK-2) Troponin T C-Reactive Protein Albumin Triglycerides HDL Cholesterol TSH Free T4 Arterial Blood Glucose Arterial Blood Ionized Calcium Urine WBC (Auto) Salicylates Acetaminophen Coronavirus (PCR) 09/16/20 09/16/20 09/16/20 21:38 21:38 21:38 WBC Hgb MCH MCHC RDW Lymph % (Auto) Lymph # (Auto) Seg Neutrophils % Seg Neutrophils # PT INR APTT D-Dimer Heparin Anti-Xa Level ABG pH POC ABG pCO2 POC ABG pO2 ABG Oxyhemoglobin ABG Sodium ABG Potassium ABG Chloride ABG Glucose Sodium Potassium Chloride Carbon Dioxide BUN Creatinine Glucose POC Glucose Lactic Acid Calcium Phosphorus Ferritin 1089.0 H AST Ammonia Lactate Dehydrogenase 722 H Total Creatine Kinase CK-MB (CK-2) Troponin T C-Reactive Protein 6.80 H Albumin Triglycerides HDL Cholesterol TSH Free T4 Arterial Blood Glucose Arterial Blood Ionized Calcium Urine WBC (Auto) Salicylates Acetaminophen 5.0 L Coronavirus (PCR) 09/16/20 09/16/20 09/17/20 21:38 22:24 04:59 WBC Hgb MCH MCHC RDW Lymph % (Auto) Lymph # (Auto) Seg Neutrophils % Seg Neutrophils # PT INR APTT D-Dimer Heparin Anti-Xa Level ABG pH POC ABG pCO2 POC ABG pO2 ABG Oxyhemoglobin ABG Sodium ABG Potassium ABG Chloride ABG Glucose Sodium 134 L 135 L Potassium 3.5 L 3.0 L Chloride 95.1 L 97.2 L Carbon Dioxide BUN Creatinine Glucose 288 H 149 H POC Glucose 307 H Lactic Acid Calcium 8.2 L Phosphorus Ferritin AST 43 H 49 H Ammonia Lactate Dehydrogenase Total Creatine Kinase CK-MB (CK-2) Troponin T C-Reactive Protein Albumin 3.7 L 3.3 L Triglycerides HDL Cholesterol TSH Free T4 Arterial Blood Glucose Arterial Blood Ionized Calcium Urine WBC (Auto) Salicylates Acetaminophen Coronavirus (PCR) 09/17/20 09/17/20 09/17/20 12:25 16:57 21:30 WBC Hgb MCH MCHC RDW Lymph % (Auto) Lymph # (Auto) Seg Neutrophils % Seg Neutrophils # PT INR APTT D-Dimer Heparin Anti-Xa Level ABG pH POC ABG pCO2 POC ABG pO2 ABG Oxyhemoglobin ABG Sodium ABG Potassium ABG Chloride ABG Glucose Sodium Potassium Chloride Carbon Dioxide BUN Creatinine Glucose POC Glucose 199 H 313 H 304 H Lactic Acid Calcium Phosphorus Ferritin AST Ammonia Lactate Dehydrogenase Total Creatine Kinase CK-MB (CK-2) Troponin T C-Reactive Protein Albumin Triglycerides HDL Cholesterol TSH Free T4 Arterial Blood Glucose Arterial Blood Ionized Calcium Urine WBC (Auto) Salicylates Acetaminophen Coronavirus (PCR) 09/18/20 09/18/20 09/18/20 08:01 08:05 12:36 WBC Hgb MCH MCHC RDW Lymph % (Auto) Lymph # (Auto) Seg Neutrophils % Seg Neutrophils # PT INR APTT D-Dimer Heparin Anti-Xa Level ABG pH POC ABG pCO2 POC ABG pO2 ABG Oxyhemoglobin ABG Sodium ABG Potassium ABG Chloride ABG Glucose Sodium Potassium 3.1 L Chloride Carbon Dioxide BUN Creatinine Glucose 112 H POC Glucose 125 H 159 H Lactic Acid Calcium 8.3 L Phosphorus Ferritin AST 47 H Ammonia Lactate Dehydrogenase Total Creatine Kinase CK-MB (CK-2) Troponin T C-Reactive Protein Albumin 3.3 L Triglycerides HDL Cholesterol TSH Free T4 Arterial Blood Glucose Arterial Blood Ionized Calcium Urine WBC (Auto) Salicylates Acetaminophen Coronavirus (PCR) 09/18/20 09/18/20 09/19/20 16:57 21:40 06:10 WBC Hgb MCH MCHC RDW Lymph % (Auto) Lymph # (Auto) Seg Neutrophils % Seg Neutrophils # PT INR APTT D-Dimer Heparin Anti-Xa Level ABG pH POC ABG pCO2 POC ABG pO2 ABG Oxyhemoglobin ABG Sodium ABG Potassium ABG Chloride ABG Glucose Sodium Potassium 2.8 L* Chloride 97.7 L Carbon Dioxide BUN Creatinine 0.4 L Glucose 146 H POC Glucose 180 H 225 H Lactic Acid Calcium 8.2 L Phosphorus Ferritin AST 45 H Ammonia Lactate Dehydrogenase Total Creatine Kinase CK-MB (CK-2) Troponin T C-Reactive Protein Albumin 3.5 L Triglycerides HDL Cholesterol TSH Free T4 Arterial Blood Glucose Arterial Blood Ionized Calcium Urine WBC (Auto) Salicylates Acetaminophen Coronavirus (PCR) 09/19/20 09/19/20 09/19/20 08:06 11:14 17:50 WBC Hgb MCH MCHC RDW Lymph % (Auto) Lymph # (Auto) Seg Neutrophils % Seg Neutrophils # PT INR APTT D-Dimer Heparin Anti-Xa Level ABG pH POC ABG pCO2 POC ABG pO2 ABG Oxyhemoglobin ABG Sodium ABG Potassium ABG Chloride ABG Glucose Sodium Potassium Chloride Carbon Dioxide BUN Creatinine Glucose POC Glucose 175 H 210 H 291 H Lactic Acid Calcium Phosphorus Ferritin AST Ammonia Lactate Dehydrogenase Total Creatine Kinase CK-MB (CK-2) Troponin T C-Reactive Protein Albumin Triglycerides HDL Cholesterol TSH Free T4 Arterial Blood Glucose Arterial Blood Ionized Calcium Urine WBC (Auto) Salicylates Acetaminophen Coronavirus (PCR) 09/19/20 09/20/20 09/20/20 21:30 05:23 05:23 WBC Hgb MCH MCHC RDW Lymph % (Auto) Lymph # (Auto) Seg Neutrophils % Seg Neutrophils # PT INR APTT D-Dimer Heparin Anti-Xa Level ABG pH POC ABG pCO2 POC ABG pO2 ABG Oxyhemoglobin ABG Sodium ABG Potassium ABG Chloride ABG Glucose Sodium 131 L Potassium 3.3 L D Chloride 95.4 L Carbon Dioxide 18 L BUN Creatinine 0.4 L Glucose 169 H POC Glucose 232 H Lactic Acid Calcium 8.3 L Phosphorus Ferritin 738.9 H AST Ammonia Lactate Dehydrogenase 882 H Total Creatine Kinase CK-MB (CK-2) Troponin T C-Reactive Protein 11.40 H Albumin Triglycerides HDL Cholesterol TSH Free T4 Arterial Blood Glucose Arterial Blood Ionized Calcium Urine WBC (Auto) Salicylates Acetaminophen Coronavirus (PCR) 09/20/20 09/20/20 09/20/20 05:23 06:50 10:46 WBC Hgb MCH MCHC RDW Lymph % (Auto) Lymph # (Auto) Seg Neutrophils % Seg Neutrophils # PT INR APTT D-Dimer 4940.20 H Heparin Anti-Xa Level ABG pH 7.289 L POC ABG pCO2 POC ABG pO2 50.1 L ABG Oxyhemoglobin 80.8 L ABG Sodium 130.8 L ABG Potassium ABG Chloride 97.0 L ABG Glucose 275 H Sodium Potassium Chloride Carbon Dioxide BUN Creatinine Glucose POC Glucose 242 H Lactic Acid Calcium Phosphorus Ferritin AST Ammonia Lactate Dehydrogenase Total Creatine Kinase CK-MB (CK-2) Troponin T C-Reactive Protein Albumin Triglycerides HDL Cholesterol TSH Free T4 Arterial Blood Glucose 275 H Arterial Blood Ionized Calcium 4.2 L Urine WBC (Auto) Salicylates Acetaminophen Coronavirus (PCR) 09/20/20 09/20/20 09/20/20 11:58 16:30 16:41 WBC Hgb MCH MCHC RDW Lymph % (Auto) Lymph # (Auto) Seg Neutrophils % Seg Neutrophils # PT INR APTT D-Dimer Heparin Anti-Xa Level ABG pH POC ABG pCO2 27.8 L POC ABG pO2 79.7 L ABG Oxyhemoglobin ABG Sodium 131.0 L ABG Potassium ABG Chloride ABG Glucose 297 H Sodium Potassium Chloride Carbon Dioxide BUN Creatinine Glucose POC Glucose 262 H 283 H Lactic Acid Calcium Phosphorus Ferritin AST Ammonia Lactate Dehydrogenase Total Creatine Kinase CK-MB (CK-2) Troponin T C-Reactive Protein Albumin Triglycerides HDL Cholesterol TSH Free T4 Arterial Blood Glucose 297 H Arterial Blood Ionized Calcium 4.3 L Urine WBC (Auto) Salicylates Acetaminophen Coronavirus (PCR) 09/20/20 09/20/20 09/21/20 17:26 21:29 00:46 WBC Hgb MCH MCHC RDW Lymph % (Auto) Lymph # (Auto) Seg Neutrophils % Seg Neutrophils # PT INR APTT D-Dimer Heparin Anti-Xa Level ABG pH POC ABG pCO2 POC ABG pO2 ABG Oxyhemoglobin ABG Sodium ABG Potassium ABG Chloride ABG Glucose Sodium Potassium Chloride Carbon Dioxide BUN Creatinine Glucose POC Glucose 297 H 248 H Lactic Acid Calcium Phosphorus Ferritin AST Ammonia Lactate Dehydrogenase Total Creatine Kinase CK-MB (CK-2) Troponin T 0.444 H* C-Reactive Protein Albumin Triglycerides 156 H HDL Cholesterol 22 L TSH Free T4 Arterial Blood Glucose Arterial Blood Ionized Calcium Urine WBC (Auto) Salicylates Acetaminophen Coronavirus (PCR) 09/21/20 09/21/20 09/21/20 00:46 02:14 03:22 WBC Hgb MCH MCHC RDW Lymph % (Auto) Lymph # (Auto) Seg Neutrophils % Seg Neutrophils # PT 20.0 H INR 1.65 H APTT 38.2 H D-Dimer Heparin Anti-Xa Level ABG pH POC ABG pCO2 POC ABG pO2 70.3 L ABG Oxyhemoglobin 92.2 L ABG Sodium 134.2 L ABG Potassium ABG Chloride ABG Glucose 187 H Sodium 134 L Potassium Chloride Carbon Dioxide 18 L BUN 23 H Creatinine Glucose 198 H POC Glucose Lactic Acid Calcium 6.7 L D Phosphorus Ferritin AST Ammonia Lactate Dehydrogenase Total Creatine Kinase CK-MB (CK-2) Troponin T C-Reactive Protein Albumin Triglycerides HDL Cholesterol TSH Free T4 Arterial Blood Glucose 187 H Arterial Blood Ionized Calcium 4.2 L Urine WBC (Auto) Salicylates Acetaminophen Coronavirus (PCR) 09/21/20 09/21/20 09/21/20 07:26 08:15 11:21 WBC Hgb MCH MCHC RDW Lymph % (Auto) Lymph # (Auto) Seg Neutrophils % Seg Neutrophils # PT INR APTT D-Dimer Heparin Anti-Xa Level 0.97 H ABG pH POC ABG pCO2 POC ABG pO2 ABG Oxyhemoglobin ABG Sodium ABG Potassium ABG Chloride ABG Glucose Sodium Potassium Chloride Carbon Dioxide BUN Creatinine Glucose POC Glucose 157 H 153 H Lactic Acid Calcium Phosphorus Ferritin AST Ammonia Lactate Dehydrogenase Total Creatine Kinase CK-MB (CK-2) Troponin T C-Reactive Protein Albumin Triglycerides HDL Cholesterol TSH Free T4 Arterial Blood Glucose Arterial Blood Ionized Calcium Urine WBC (Auto) Salicylates Acetaminophen Coronavirus (PCR) 09/21/20 09/21/20 09/21/20 15:16 15:59 18:58 WBC Hgb MCH MCHC RDW Lymph % (Auto) Lymph # (Auto) Seg Neutrophils % Seg Neutrophils # PT INR APTT D-Dimer Heparin Anti-Xa Level 0.90 H ABG pH POC ABG pCO2 POC ABG pO2 ABG Oxyhemoglobin ABG Sodium ABG Potassium ABG Chloride ABG Glucose Sodium Potassium Chloride Carbon Dioxide BUN Creatinine Glucose POC Glucose 192 H Lactic Acid Calcium Phosphorus Ferritin AST Ammonia Lactate Dehydrogenase Total Creatine Kinase CK-MB (CK-2) Troponin T C-Reactive Protein 8.40 H Albumin Triglycerides HDL Cholesterol TSH Free T4 Arterial Blood Glucose Arterial Blood Ionized Calcium Urine WBC (Auto) Salicylates Acetaminophen Coronavirus (PCR) 09/21/20 09/21/20 09/22/20 18:58 21:14 01:33 WBC Hgb MCH MCHC RDW Lymph % (Auto) Lymph # (Auto) Seg Neutrophils % Seg Neutrophils # PT INR APTT D-Dimer Heparin Anti-Xa Level 0.78 H ABG pH POC ABG pCO2 POC ABG pO2 ABG Oxyhemoglobin ABG Sodium ABG Potassium ABG Chloride ABG Glucose Sodium Potassium Chloride Carbon Dioxide BUN Creatinine Glucose POC Glucose 172 H Lactic Acid Calcium Phosphorus Ferritin AST Ammonia Lactate Dehydrogenase Total Creatine Kinase 536 H CK-MB (CK-2) 17.8 H Troponin T 0.793 H* D C-Reactive Protein Albumin Triglycerides HDL Cholesterol TSH Free T4 Arterial Blood Glucose Arterial Blood Ionized Calcium Urine WBC (Auto) Salicylates Acetaminophen Coronavirus (PCR) 09/22/20 09/22/20 09/22/20 04:15 07:15 10:22 WBC Hgb MCH MCHC RDW Lymph % (Auto) Lymph # (Auto) Seg Neutrophils % Seg Neutrophils # PT INR APTT D-Dimer Heparin Anti-Xa Level ABG pH POC ABG pCO2 POC ABG pO2 ABG Oxyhemoglobin ABG Sodium 132.9 L ABG Potassium ABG Chloride ABG Glucose 155 H Sodium Potassium Chloride Carbon Dioxide BUN Creatinine Glucose POC Glucose 159 H Lactic Acid Calcium Phosphorus Ferritin AST Ammonia Lactate Dehydrogenase Total Creatine Kinase 1159 H CK-MB (CK-2) 14.4 H Troponin T 0.501 H* D C-Reactive Protein Albumin Triglycerides HDL Cholesterol TSH Free T4 Arterial Blood Glucose 155 H Arterial Blood Ionized Calcium 4.3 L Urine WBC (Auto) Salicylates Acetaminophen Coronavirus (PCR) 09/22/20 09/22/20 09/22/20 11:34 16:35 17:44 WBC Hgb MCH MCHC RDW Lymph % (Auto) Lymph # (Auto) Seg Neutrophils % Seg Neutrophils # PT INR APTT D-Dimer Heparin Anti-Xa Level 0.15 L ABG pH POC ABG pCO2 POC ABG pO2 ABG Oxyhemoglobin ABG Sodium ABG Potassium ABG Chloride ABG Glucose Sodium Potassium Chloride Carbon Dioxide BUN Creatinine Glucose POC Glucose 206 H 273 H Lactic Acid Calcium Phosphorus Ferritin AST Ammonia Lactate Dehydrogenase Total Creatine Kinase CK-MB (CK-2) Troponin T C-Reactive Protein Albumin Triglycerides HDL Cholesterol TSH Free T4 Arterial Blood Glucose Arterial Blood Ionized Calcium Urine WBC (Auto) Salicylates Acetaminophen Coronavirus (PCR) 09/23/20 09/23/20 09/23/20 00:32 04:00 05:11 WBC Hgb MCH MCHC RDW Lymph % (Auto) Lymph # (Auto) Seg Neutrophils % Seg Neutrophils # PT INR APTT D-Dimer Heparin Anti-Xa Level ABG pH POC ABG pCO2 POC ABG pO2 75.7 L ABG Oxyhemoglobin ABG Sodium 135.0 L ABG Potassium ABG Chloride ABG Glucose 237 H Sodium Potassium Chloride Carbon Dioxide BUN Creatinine Glucose POC Glucose 287 H 210 H Lactic Acid Calcium Phosphorus Ferritin AST Ammonia Lactate Dehydrogenase Total Creatine Kinase CK-MB (CK-2) Troponin T C-Reactive Protein Albumin Triglycerides HDL Cholesterol TSH Free T4 Arterial Blood Glucose 237 H Arterial Blood Ionized Calcium 4.5 L Urine WBC (Auto) Salicylates Acetaminophen Coronavirus (PCR) 09/23/20 09/23/20 09/23/20 08:02 10:03 10:03 WBC 13.8 H Hgb MCH MCHC RDW Lymph % (Auto) Lymph # (Auto) Seg Neutrophils % Seg Neutrophils # PT INR APTT D-Dimer 2573.89 H Heparin Anti-Xa Level ABG pH POC ABG pCO2 POC ABG pO2 ABG Oxyhemoglobin ABG Sodium ABG Potassium ABG Chloride ABG Glucose Sodium Potassium Chloride Carbon Dioxide BUN Creatinine Glucose POC Glucose 268 H Lactic Acid Calcium Phosphorus Ferritin AST Ammonia Lactate Dehydrogenase Total Creatine Kinase CK-MB (CK-2) Troponin T C-Reactive Protein Albumin Triglycerides HDL Cholesterol TSH Free T4 Arterial Blood Glucose Arterial Blood Ionized Calcium Urine WBC (Auto) Salicylates Acetaminophen Coronavirus (PCR) 09/23/20 09/23/20 09/23/20 10:03 10:03 10:03 WBC Hgb MCH MCHC RDW Lymph % (Auto) Lymph # (Auto) Seg Neutrophils % Seg Neutrophils # PT INR APTT D-Dimer Heparin Anti-Xa Level 0.12 L ABG pH POC ABG pCO2 POC ABG pO2 ABG Oxyhemoglobin ABG Sodium ABG Potassium ABG Chloride ABG Glucose Sodium Potassium Chloride Carbon Dioxide BUN 26 H Creatinine Glucose 271 H POC Glucose Lactic Acid Calcium 8.2 L D Phosphorus Ferritin 1084.0 H AST Ammonia Lactate Dehydrogenase 1592 H Total Creatine Kinase CK-MB (CK-2) Troponin T C-Reactive Protein 9.10 H Albumin Triglycerides HDL Cholesterol TSH Free T4 Arterial Blood Glucose Arterial Blood Ionized Calcium Urine WBC (Auto) Salicylates Acetaminophen Coronavirus (PCR) 09/23/20 09/23/20 09/23/20 12:17 18:30 20:01 WBC Hgb MCH MCHC RDW Lymph % (Auto) Lymph # (Auto) Seg Neutrophils % Seg Neutrophils # PT INR APTT D-Dimer Heparin Anti-Xa Level 0.15 L ABG pH POC ABG pCO2 POC ABG pO2 ABG Oxyhemoglobin ABG Sodium ABG Potassium ABG Chloride ABG Glucose Sodium Potassium Chloride Carbon Dioxide BUN Creatinine Glucose POC Glucose 282 H 392 H Lactic Acid Calcium Phosphorus Ferritin AST Ammonia Lactate Dehydrogenase Total Creatine Kinase CK-MB (CK-2) Troponin T C-Reactive Protein Albumin Triglycerides HDL Cholesterol TSH Free T4 Arterial Blood Glucose Arterial Blood Ionized Calcium Urine WBC (Auto) Salicylates Acetaminophen Coronavirus (PCR) 09/23/20 09/23/20 09/24/20 21:08 23:58 04:00 WBC Hgb MCH MCHC RDW Lymph % (Auto) Lymph # (Auto) Seg Neutrophils % Seg Neutrophils # PT INR APTT D-Dimer Heparin Anti-Xa Level ABG pH POC ABG pCO2 55.6 H POC ABG pO2 75.6 L ABG Oxyhemoglobin ABG Sodium 135.9 L ABG Potassium ABG Chloride ABG Glucose 330 H Sodium Potassium Chloride Carbon Dioxide BUN Creatinine Glucose POC Glucose 373 H 391 H Lactic Acid Calcium Phosphorus Ferritin AST Ammonia Lactate Dehydrogenase Total Creatine Kinase CK-MB (CK-2) Troponin T C-Reactive Protein Albumin Triglycerides HDL Cholesterol TSH Free T4 Arterial Blood Glucose 330 H Arterial Blood Ionized Calcium 4.4 L Urine WBC (Auto) Salicylates Acetaminophen Coronavirus (PCR) 09/24/20 09/24/20 09/24/20 04:30 04:30 05:04 WBC 12.4 H Hgb MCH MCHC RDW Lymph % (Auto) Lymph # (Auto) Seg Neutrophils % Seg Neutrophils # PT INR APTT D-Dimer Heparin Anti-Xa Level ABG pH POC ABG pCO2 POC ABG pO2 ABG Oxyhemoglobin ABG Sodium ABG Potassium ABG Chloride ABG Glucose Sodium Potassium Chloride Carbon Dioxide BUN 25 H Creatinine Glucose 337 H POC Glucose 316 H Lactic Acid Calcium 8.0 L Phosphorus Ferritin AST Ammonia Lactate Dehydrogenase Total Creatine Kinase CK-MB (CK-2) Troponin T C-Reactive Protein Albumin Triglycerides HDL Cholesterol TSH Free T4 Arterial Blood Glucose Arterial Blood Ionized Calcium Urine WBC (Auto) Salicylates Acetaminophen Coronavirus (PCR) 09/24/20 09/24/20 09/24/20 11:41 17:32 23:41 WBC Hgb MCH MCHC RDW Lymph % (Auto) Lymph # (Auto) Seg Neutrophils % Seg Neutrophils # PT INR APTT D-Dimer Heparin Anti-Xa Level ABG pH POC ABG pCO2 POC ABG pO2 ABG Oxyhemoglobin ABG Sodium ABG Potassium ABG Chloride ABG Glucose Sodium Potassium Chloride Carbon Dioxide BUN Creatinine Glucose POC Glucose 240 H 271 H 349 H Lactic Acid Calcium Phosphorus Ferritin AST Ammonia Lactate Dehydrogenase Total Creatine Kinase CK-MB (CK-2) Troponin T C-Reactive Protein Albumin Triglycerides HDL Cholesterol TSH Free T4 Arterial Blood Glucose Arterial Blood Ionized Calcium Urine WBC (Auto) Salicylates Acetaminophen Coronavirus (PCR) 09/25/20 09/25/20 09/25/20 05:11 09:43 09:43 WBC Hgb MCH MCHC RDW 15.4 H Lymph % (Auto) Lymph # (Auto) Seg Neutrophils % Seg Neutrophils # PT INR APTT D-Dimer 1481.03 H Heparin Anti-Xa Level ABG pH POC ABG pCO2 POC ABG pO2 ABG Oxyhemoglobin ABG Sodium ABG Potassium ABG Chloride ABG Glucose Sodium Potassium Chloride Carbon Dioxide BUN Creatinine Glucose POC Glucose 319 H Lactic Acid Calcium Phosphorus Ferritin AST Ammonia Lactate Dehydrogenase Total Creatine Kinase CK-MB (CK-2) Troponin T C-Reactive Protein Albumin Triglycerides HDL Cholesterol TSH Free T4 Arterial Blood Glucose Arterial Blood Ionized Calcium Urine WBC (Auto) Salicylates Acetaminophen Coronavirus (PCR) 09/25/20 09/25/20 09/25/20 09:43 09:43 09:43 WBC Hgb MCH MCHC RDW Lymph % (Auto) Lymph # (Auto) Seg Neutrophils % Seg Neutrophils # PT INR APTT D-Dimer Heparin Anti-Xa Level 0.10 L ABG pH POC ABG pCO2 POC ABG pO2 ABG Oxyhemoglobin ABG Sodium ABG Potassium ABG Chloride ABG Glucose Sodium Potassium Chloride Carbon Dioxide 33 H BUN 26 H Creatinine Glucose 306 H POC Glucose Lactic Acid Calcium 8.1 L Phosphorus Ferritin 670.5 H AST Ammonia Lactate Dehydrogenase 948 H Total Creatine Kinase CK-MB (CK-2) Troponin T C-Reactive Protein 6.70 H Albumin Triglycerides HDL Cholesterol TSH Free T4 Arterial Blood Glucose Arterial Blood Ionized Calcium Urine WBC (Auto) Salicylates Acetaminophen Coronavirus (PCR) 09/25/20 09/25/20 09/25/20 11:52 13:38 17:37 WBC Hgb MCH MCHC RDW Lymph % (Auto) Lymph # (Auto) Seg Neutrophils % Seg Neutrophils # PT INR APTT D-Dimer Heparin Anti-Xa Level ABG pH POC ABG pCO2 60.9 H POC ABG pO2 59.7 L ABG Oxyhemoglobin 90.2 L ABG Sodium ABG Potassium ABG Chloride ABG Glucose 336 H Sodium Potassium Chloride Carbon Dioxide BUN Creatinine Glucose POC Glucose 313 H 379 H Lactic Acid Calcium Phosphorus Ferritin AST Ammonia Lactate Dehydrogenase Total Creatine Kinase CK-MB (CK-2) Troponin T C-Reactive Protein Albumin Triglycerides HDL Cholesterol TSH Free T4 Arterial Blood Glucose 336 H Arterial Blood Ionized Calcium 4.4 L Urine WBC (Auto) Salicylates Acetaminophen Coronavirus (PCR) 09/25/20 09/25/20 09/26/20 20:52 23:23 00:32 WBC Hgb MCH MCHC RDW Lymph % (Auto) Lymph # (Auto) Seg Neutrophils % Seg Neutrophils # PT INR APTT D-Dimer Heparin Anti-Xa Level 0.10 L ABG pH POC ABG pCO2 POC ABG pO2 ABG Oxyhemoglobin ABG Sodium ABG Potassium ABG Chloride ABG Glucose Sodium Potassium Chloride Carbon Dioxide BUN Creatinine Glucose POC Glucose 387 H 269 H Lactic Acid Calcium Phosphorus Ferritin AST Ammonia Lactate Dehydrogenase Total Creatine Kinase CK-MB (CK-2) Troponin T C-Reactive Protein Albumin Triglycerides HDL Cholesterol TSH Free T4 Arterial Blood Glucose Arterial Blood Ionized Calcium Urine WBC (Auto) Salicylates Acetaminophen Coronavirus (PCR) 09/26/20 09/26/20 09/26/20 02:23 02:23 03:53 WBC 11.4 H Hgb MCH MCHC RDW Lymph % (Auto) Lymph # (Auto) Seg Neutrophils % Seg Neutrophils # PT INR APTT D-Dimer Heparin Anti-Xa Level ABG pH POC ABG pCO2 58.5 H POC ABG pO2 69.5 L ABG Oxyhemoglobin 93.5 L ABG Sodium ABG Potassium ABG Chloride ABG Glucose 272 H Sodium Potassium Chloride Carbon Dioxide 33 H BUN 27 H Creatinine Glucose 316 H POC Glucose Lactic Acid Calcium 7.9 L Phosphorus 2.20 L Ferritin AST Ammonia Lactate Dehydrogenase Total Creatine Kinase CK-MB (CK-2) Troponin T C-Reactive Protein Albumin Triglycerides HDL Cholesterol TSH Free T4 Arterial Blood Glucose 272 H Arterial Blood Ionized Calcium 4.3 L Urine WBC (Auto) Salicylates Acetaminophen Coronavirus (PCR) 09/26/20 09/26/20 09/26/20 05:43 05:43 11:57 WBC Hgb MCH MCHC RDW Lymph % (Auto) Lymph # (Auto) Seg Neutrophils % Seg Neutrophils # PT INR APTT D-Dimer Heparin Anti-Xa Level 0.15 L ABG pH POC ABG pCO2 POC ABG pO2 ABG Oxyhemoglobin ABG Sodium ABG Potassium ABG Chloride ABG Glucose Sodium Potassium Chloride Carbon Dioxide BUN Creatinine Glucose POC Glucose 277 H 345 H Lactic Acid Calcium Phosphorus Ferritin AST Ammonia Lactate Dehydrogenase Total Creatine Kinase CK-MB (CK-2) Troponin T C-Reactive Protein Albumin Triglycerides HDL Cholesterol TSH Free T4 Arterial Blood Glucose Arterial Blood Ionized Calcium Urine WBC (Auto) Salicylates Acetaminophen Coronavirus (PCR) Chest x-ray: image reviewed (no changes ) Allied health notes reviewed: nursing
[2020-09-26] MEDS: HEPARIN 5,000 UNIT/1 ML VIAL SUB-Q SCH ×2 (13:20→21:11)
--- NOTE | 2020-09-26 18:01 | Progress Note ---
Assessment and Plan Cultures: Blood culture no growth so far Covid PUI positive A/P: 54-year-old female past medical history bipolar, hypothyroidism, hyperten [place], diabetes now with: #Acute hypoxic respiratory failure: Likely secondary to pneumonia, procalcitonin was normal. Now on the vent. Actemra 09/24/2020 #Covid pneumonia: PCR positive #Bilateral pneumonia #Drug overdose: With trazodone Recs: -Completed 5 days Remdesivir -Steroids per primary for 10 days -Actemra given 09/24/2020 -procalcitonin remains normal, no need for antibiotics. Thank you for the consult, we will continue to follow. Dr. Sutherland covering this weekend, Dr. Ochoa taking over Tuesday. Dominique Patel MD [facility], [place] [facility] ([facility]) O: [phone] F: [phone] Subjective Date of service: 09/26/20 Principal diagnosis: Ac encephalopathy; CAP; Sepsis; COVID-19 infxn; Ac hypoxemic resp failure Interval history: Febrile to 100.6 with a white count of 11.4. Imaging personally viewed: Chest x-ray: Unchanged patchy multifocal airspace disease. Objective - Exam Narrative Exam: Physical exam deferred to reduce risk of transmission of COVID-19. Please refer to primary team's note. - Constitutional Vitals: Vital Signs Temp Pulse Resp BP Pulse Ox 100.6 F H 103 H 20 118/55 94 09/26/20 16:38 09/26/20 17:45 09/26/20 17:45 09/26/20 17:45 09/26/20 17:45 Temperature -Last 24 Hours Temperature 100.6 F Temperature 99.3 F Temperature 100.3 F Temperature 97.8 F - Labs CBC & Chem 7: 09/26/20 02:23 09/26/20 02:23 Labs: Abnormal lab results 09/25/20 09/25/20 09/26/20 Range/Units 20:52 23:23 00:32 WBC (4.5-11.0) K/mm3 Heparin Anti-Xa Level 0.10 L (0.3-0.7) U.I./ml POC ABG pCO2 (32.0-48.0) mmHg POC ABG pO2 (83-108) mmHg ABG Oxyhemoglobin (94-98) ABG Glucose (65-95) mg/dL Carbon Dioxide (22-30) mmol/L BUN (7-17) mg/dL Glucose (65-100) mg/dL POC Glucose 387 H 269 H (70-105) mg/dL Lactic Acid (0.7-2.0) mmol/L Calcium (8.4-10.2) mg/dL Phosphorus (2.5-4.5) mg/dL Arterial Blood Glucose (65-95) mg/dL Arterial Blood Ionized Calcium (4.6-5.3) mg/dL 09/26/20 09/26/20 09/26/20 Range/Units 02:23 02:23 03:53 WBC 11.4 H (4.5-11.0) K/mm3 Heparin Anti-Xa Level (0.3-0.7) U.I./ml POC ABG pCO2 58.5 H (32.0-48.0) mmHg POC ABG pO2 69.5 L (83-108) mmHg ABG Oxyhemoglobin 93.5 L (94-98) ABG Glucose 272 H (65-95) mg/dL Carbon Dioxide 33 H (22-30) mmol/L BUN 27 H (7-17) mg/dL Glucose 316 H (65-100) mg/dL POC Glucose (70-105) mg/dL Lactic Acid (0.7-2.0) mmol/L Calcium 7.9 L (8.4-10.2) mg/dL Phosphorus 2.20 L (2.5-4.5) mg/dL Arterial Blood Glucose 272 H (65-95) mg/dL Arterial Blood Ionized Calcium 4.3 L (4.6-5.3) mg/dL 09/26/20 09/26/20 09/26/20 Range/Units 05:43 05:43 11:57 WBC (4.5-11.0) K/mm3 Heparin Anti-Xa Level 0.15 L (0.3-0.7) U.I./ml POC ABG pCO2 (32.0-48.0) mmHg POC ABG pO2 (83-108) mmHg ABG Oxyhemoglobin (94-98) ABG Glucose (65-95) mg/dL Carbon Dioxide (22-30) mmol/L BUN (7-17) mg/dL Glucose (65-100) mg/dL POC Glucose 277 H 345 H (70-105) mg/dL Lactic Acid (0.7-2.0) mmol/L Calcium (8.4-10.2) mg/dL Phosphorus (2.5-4.5) mg/dL Arterial Blood Glucose (65-95) mg/dL Arterial Blood Ionized Calcium (4.6-5.3) mg/dL 09/26/20 09/26/20 Range/Units 13:17 17:53 WBC (4.5-11.0) K/mm3 Heparin Anti-Xa Level (0.3-0.7) U.I./ml POC ABG pCO2 (32.0-48.0) mmHg POC ABG pO2 (83-108) mmHg ABG Oxyhemoglobin (94-98) ABG Glucose (65-95) mg/dL Carbon Dioxide (22-30) mmol/L BUN (7-17) mg/dL Glucose (65-100) mg/dL POC Glucose 292 H (70-105) mg/dL Lactic Acid 2.50 H* (0.7-2.0) mmol/L Calcium (8.4-10.2) mg/dL Phosphorus (2.5-4.5) mg/dL Arterial Blood Glucose (65-95) mg/dL Arterial Blood Ionized Calcium (4.6-5.3) mg/dL
--- NOTE | 2020-09-26 18:03 | Progress Note ---
Assessment and Plan Assessment and plan: This is a 54-year-old female with bipolar disorder, hypothyroidism, hypertension, diabetes mellitus admitted for acute hypoxic respiratory failure, COVID-19 pneumonia, NSTEMI Neuro: Acute metabolic encephalopathy, drug ingestion, h/o bipolar -Psych consult, appreciate recommendations -Zoloft -intact cough/gag, PERRL -Avoid delirium -Sedated with fentanyl, goal RASS 0 to -1 Cardiology: SR, NSTEMI, h/o HTN -Cardiology consulted, appreciate recommendations -Echocardiogram shows diastolic function normal, LVEF 50 to 55%, mild to moderate concentric LVH, mild AR, mild MR, trace TR, RVSP normal at 17 mmHg -Aspirin 162, Plavix 75, beta-genny, as needed nitroglycerin -Blood pressure monitoring per protocol -Heparin drip Respiratory: Acute hypoxic respiratory failure -On mechanical ventilation, wean as tolerated -CCM consulted, appreciate recommendations -VAP bundle -SPO2 monitoring -Serial CXR and ABGs -Current vent settings: AC/PRVC TV 450, R 18, PEEP 18, 90% fiO2 -see rt notes for titration -09/26 CXR and ABG reviewed GI: NAD -Nutrition consulted, appreciate recommendations -Tube feedings -Accu-Cheks every 6 -SSI -PPI -BM: [place]-BM today per RN : Urinary retention -Laura catheter replaced due to retention -Patient is on doxazosin, flomax readded today Endo: Hypothyroidism, h/o DM -SSI -Accu-Cheks every 6 -Synthroid -Avoid hypoglycemia -Long-acting insulin, titrate as needed Heme: Leukocytosis -Trend CBC -Transfuse for hemoglobin less than 7 -Systemic anticoagulation with heparin drip ID: COVID-19 pneumonia, UTI, sepsis, lactic acidosis -COVID-19 PCR + 09/16/2020 -Infectious disease consulted, appreciate recommendations -S/p remdesivir 5 days -Dexamethasone -09/24 Actemra -ABX completed -Contact/droplet precautions -Trend COVID-19 inflammatory markers The high probability of a clinically significant, sudden or life threatening deterioration of the [cardiorespiratory] system(s) required my full and direct attention, intervention and personal management. The aggregate critical care time was [60] minutes. This time is in addition to time spent performing reported procedures but includes the following: [x] Data Review and interpretation [x] Patient assessment and monitoring of vital signs [x] Documentation [x] Medication orders and management Disposition Plan: icu Total Time Spent with Patient (Minutes): 60 History Interval history: This is a 54-year-old female with bipolar disorder, hypothyroidism, hypertension, diabetes mellitus who presents to the emergency department via EMS after having being found on the floor with a generalized weakness vs syncope as the patient is in the case that she took some trazodone in order to get to sleep but cannot recall how many tablets she took her dosage. The final regimen patient was confused but arousable and responds to questions during her course of stay. In the emergency department she was found to be hypoxic upon arrival with O2 sat of 82% on room air and was placed on supplemental oxygen. Work-up in the emergency department included a CXR which revealed patchy parenchymal opacities, hyponatremia of 128, hypokalemia 3.2, elevated blood glucose of 388, lactic acidosis 2.7, elevated TSH at 34.67 and free T4 at 0.1. UA revealed UTI and tox screen revealed Tylenol level of 9.1. Patient was admitted to the hospital service with acute hypoxic respiratory failure secondary to pneumonia, hypokalemia, drug overdose and hyperglycemia. She was admitted as a COVID-19 PUI and infectious disease was also consulted. Psych was consulted for history of bipolar and possible drug overdose. Upon arrival to the ICU for progressive shortness of breath and progressively worsening CXR patient was noted to have an NSTEMI and cardiology was consulted. 09/16/2020: COVID-pneumonia. Coronavirus PCR positive, Patient on 5 L nasal cannula oxygen 09/17/2020: Covid pneumonia, Covid PCR positive yesterday. Patient on 5 L nasal cannula oxygen. ID consult appreciated, On remdesivir 09/18/2020: Still on 5 L nasal cannula oxygen, Saturations dropped to 88% on 3 L nasal cannula oxygen, Trying to wean but not possible, Continue remdesivir 09/20/2020: Patient is severely hypoxemic, requiring very high flow oxygen And intermittent BiPAP, x-ray chest worsening infiltrates. Patient is severely hypoxemic even on BiPAP, logistics support recommend. Transfer to ICU for close observation and possible intubation if no improvement . I called MATTYK patient's mother and discussed in detail patient's deterioration, severe hypoxemia, Transfer to ICU, possible intubation if needed she informed me that. Her recently, With Covid infection, and she herself is Covid positive. 09/21/2020; patient was intubated yesterday, On ventilatory support, Non-ST elevation ME, check echocardiogram, Cardiology evaluation noted and appreciated. Discussed with 09/22: Patient's PEEP was increased to 14. [facility], will order to remove her Laura catheter today and IV heparin was changed to IV Lovenox 09/23: Continue current medical management for NSTEMI, advance O ETT by 1 cm, increase PEEP and reduced FiO2 per [facility]. Patient had retention today and Laura will be replaced with 30 straight cath and patient will be started on Flomax. 09/24: Patient received Actemra today, [facility] added doxazosin, we increase Lantus and SSI today for tighter glycemic control. 09/25: No acute events reported overnight. Increase in lantus. Vent changes made in accordance to ABG. 09/26: No acute overnight events reported. increased lantus again Hospitalist Physical - Constitutional Vitals: Temp Pulse Resp BP Pulse Ox 100.6 F H 103 H 16 125/53 94 09/26/20 16:38 09/26/20 16:00 09/26/20 12:30 09/26/20 16:00 09/26/20 16:00 General appearance: Present: no acute distress, well-nourished, other (Intubated on vent, sedated) - EENT Eyes: Absent: scleral icterus - Respiratory Respiratory effort: normal - Cardiovascular Rhythm: regular - Extremities Extremities: no ischemia - Abdominal General gastrointestinal: soft - Psychiatric Psychiatric: other (sedayed) - Neurologic Neurologic: other (sedated) - Allied Health Allied health notes reviewed: nursing, RT, social work HEART Score - HEART Score Troponin: Troponin T 0.501 ng/mL (0.00-0.029) H* D 09/22/20 10:22 Results - Labs CBC & Chem 7: 09/26/20 02:23 09/26/20 02:23 Labs: Laboratory Last Values WBC 11.4 K/mm3 (4.5-11.0) H 09/26/20 02:23 RBC 4.05 M/mm3 (3.65-5.03) 09/26/20 02:23 Hgb 12.4 gm/dl (10.1-14.3) 09/26/20 02:23 Hct 38.3 % (30.3-42.9) 09/26/20 02:23 MCV 95 fl (79-97) 09/26/20 02:23 MCH 31 pg (28-32) 09/26/20 02:23 MCHC 32 % (30-34) 09/26/20 02:23 RDW 15.2 % (13.2-15.2) 09/26/20 02:23 Plt Count 221 K/mm3 (140-440) 09/26/20 02:23 Lymph % (Auto) 7.3 % (13.4-35.0) L 09/16/20 04:47 [place] % (Auto) 6.6 % (0.0-7.3) 09/16/20 04:47 Eos % (Auto) 0.0 % (0.0-4.3) 09/16/20 04:47 Baso % (Auto) 0.4 % (0.0-1.8) 09/16/20 04:47 Lymph # (Auto) 0.8 K/mm3 (1.2-5.4) L 09/16/20 04:47 [place] # (Auto) 0.7 K/mm3 (0.0-0.8) 09/16/20 04:47 Eos # (Auto) 0.0 K/mm3 (0.0-0.4) 09/16/20 04:47 Baso # (Auto) 0.0 K/mm3 (0.0-0.1) 09/16/20 04:47 Seg Neutrophils % 85.7 % (40.0-70.0) H 09/16/20 04:47 Seg Neutrophils # 8.9 K/mm3 (1.8-7.7) H 09/16/20 04:47 PT 20.0 Sec. (12.2-14.9) H 09/21/20 02:14 INR 1.65 (0.87-1.13) H 09/21/20 02:14 APTT 38.2 Sec. (24.2-36.6) H 09/21/20 02:14 D-Dimer 1481.03 ng/mlDDU (0-234) H 09/25/20 09:43 Heparin Anti-Xa Level 0.15 U.I./ml (0.3-0.7) L 09/26/20 05:43 ABG pH 7.352 (7.320-7.450) 09/26/20 03:53 POC ABG pCO2 58.5 mmHg (32.0-48.0) H 09/26/20 03:53 POC ABG pO2 69.5 mmHg (83-108) L 09/26/20 03:53 POC ABG HCO3 31.7 09/26/20 03:53 ABG O2 Saturation 94.4 (0-100) 09/26/20 03:53 POC ABG Base Excess 4.6 09/26/20 03:53 ABG Hemoglobin 13.4 (12.0-17.5) 09/26/20 03:53 ABG Oxyhemoglobin 93.5 (94-98) L 09/26/20 03:53 ABG Methemoglobin 0.3 (0.0-1.5) 09/26/20 03:53 ABG Sodium 136.9 mmol/L (136.0-145.0) 09/26/20 03:53 ABG Potassium 4.4 mmol/L (3.40-4.50) 09/26/20 03:53 ABG Chloride 102.0 mmol/L (98-107) 09/26/20 03:53 ABG Glucose 272 mg/dL (65-95) H 09/26/20 03:53 VBG pH 7.368 (7.320-7.420) 09/15/20 18:46 Carboxyhemoglobin 0.7 (0.5-1.5) 09/26/20 03:53 FiO2 % 90.0 09/26/20 03:53 Sodium 141 mmol/L (137-145) 09/26/20 02:23 Potassium 4.6 mmol/L (3.6-5.0) 09/26/20 02:23 Chloride 101.0 mmol/L (98-107) 09/26/20 02:23 Carbon Dioxide 33 mmol/L (22-30) H 09/26/20 02:23 Anion Gap 12 mmol/L 09/26/20 02:23 BUN 27 mg/dL (7-17) H 09/26/20 02:23 Creatinine 0.6 mg/dL (0.6-1.2) 09/26/20 02:23 Estimated GFR > 60 ml/min 09/26/20 02:23 BUN/Creatinine Ratio 45 % 09/26/20 02:23 Glucose 316 mg/dL (65-100) H 09/26/20 02:23 POC Glucose 345 mg/dL (70-105) H 09/26/20 11:57 Lactic Acid 2.50 mmol/L (0.7-2.0) H* 09/26/20 13:17 Calcium 7.9 mg/dL (8.4-10.2) L 09/26/20 02:23 Phosphorus 2.20 mg/dL (2.5-4.5) L 09/26/20 02:23 Magnesium 2.20 mg/dL (1.7-2.3) 09/26/20 02:23 Ferritin 670.5 ng/mL (10.0-200.0) H 09/25/20 09:43 Total Bilirubin 0.80 mg/dL (0.1-1.2) 09/19/20 06:10 AST 45 units/L (5-40) H 09/19/20 06:10 ALT 35 units/L (7-56) 09/19/20 06:10 Alkaline Phosphatase 108 units/L (35-129) 09/19/20 06:10 Ammonia 23.0 umol/L (25-60) L 09/15/20 18:46 Lactate Dehydrogenase 948 units/L (91-180) H 09/25/20 09:43 Total Creatine Kinase 1159 units/L (30-135) H 09/22/20 10:22 CK-MB (CK-2) 14.4 ng/mL (0.0-4.0) H 09/22/20 10:22 CK-MB (CK-2) Rel Index 1.2 (0-4) 09/22/20 10:22 Troponin T 0.501 ng/mL (0.00-0.029) H* D 09/22/20 10:22 C-Reactive Protein 6.70 mg/dL (0.00-1.30) H 09/25/20 09:43 Total Protein 6.6 g/dL (6.3-8.2) 09/19/20 06:10 Albumin 3.5 g/dL (3.9-5) L 09/19/20 06:10 Albumin/Globulin Ratio 1.1 % 09/19/20 06:10 Triglycerides 156 mg/dL (2-149) H 09/21/20 00:46 Cholesterol 139 mg/dL (50-199) 09/21/20 00:46 LDL Cholesterol Direct 85 mg/dL (50-130) 09/21/20 00:46 HDL Cholesterol 22 mg/dL (40-59) L 09/21/20 00:46 Cholesterol/HDL Ratio 6.31 % 09/21/20 00:46 Procalcitonin 0.11 ng/mL (<0.15) 09/25/20 09:43 TSH 34.670 mlU/mL (0.270-4.200) H 09/15/20 18:46 Free T4 0.10 ng/dL (0.76-1.46) L 09/15/20 19:43 Arterial Blood Glucose 272 mg/dL (65-95) H 09/26/20 03:53 Arterial Blood Ionized Calcium 4.3 mg/dL (4.6-5.3) L 09/26/20 03:53 Urine Color Yellow (Yellow) 09/15/20 Unknown Urine Turbidity Cloudy (Clear) 09/15/20 Unknown Urine pH 7.0 (5.0-7.0) 09/15/20 Unknown Ur Specific [place] 1.017 (1.003-1.030) 09/15/20 Unknown Urine Protein 100 mg/dl mg/dL (Negative) 09/15/20 Unknown Urine Glucose (UA) >=500 mg/dL (Negative) 09/15/20 Unknown Urine Ketones 20 mg/dL (Negative) 09/15/20 Unknown Urine Blood Lg (Negative) 09/15/20 Unknown Urine Nitrite Neg (Negative) 09/15/20 Unknown Urine Bilirubin Neg (Negative) 09/15/20 Unknown Urine Urobilinogen < 2.0 mg/dL (<2.0) 09/15/20 Unknown Ur Leukocyte Esterase Lg (Negative) 09/15/20 Unknown Urine WBC (Auto) > 182.0 /HPF (0.0-6.0) H 09/15/20 Unknown Urine RBC (Auto) 92.0 /HPF (0.0-6.0) 09/15/20 Unknown U Epithel Cells (Auto) 4.0 /HPF (0-13.0) 09/15/20 Unknown Urine Bacteria (Auto) 3+ /HPF (Negative) 09/15/20 Unknown Urine WBC Clumps 2+ /HPF 09/15/20 Unknown Urine Yeast (Budding) 3+ /HPF 09/15/20 Unknown Salicylates < 0.3 mg/dL (2.8-20.0) L 09/15/20 18:46 Urine Opiates Screen Presumptive negative 09/15/20 Unknown Urine Methadone Screen Presumptive negative 09/15/20 Unknown Acetaminophen 5.0 ug/mL (10.0-30.0) L 09/16/20 21:38 Ur Barbiturates Screen Presumptive negative 09/15/20 Unknown Ur Phencyclidine Scrn Presumptive negative 09/15/20 Unknown Ur Amphetamines Screen Presumptive negative 09/15/20 Unknown U Benzodiazepines Scrn Presumptive negative 09/15/20 Unknown Urine Cocaine Screen Presumptive negative 09/15/20 Unknown U Marijuana (THC) Screen Presumptive negative 09/15/20 Unknown Drugs of Abuse Note Disclamer 09/15/20 Unknown Plasma/Serum Alcohol < 0.01 % (0-0.07) 09/15/20 18:46 Coronavirus (PCR) Positive (Negative) A 09/16/20 08:00 Laura/IV: Voiding Method Indwelling Catheter Active Medications - Current Medications Current Medications: Generic Name Dose Route Start Last Admin Trade Name Freq PRN Reason Stop Dose Admin Albuterol 2.5 mg 09/20/20 12:28 Albuterol 2.5 Mg/3 Ml Nebu IH Q4HRT PRN Shortness Of Breath Lipase/Protease/Amylase 1 each 09/22/20 08:06 Lipase 10,500/Protease 25,000/Amylase 43,750 (Units) Dr Young FEEDTUBE PRN PRN For Clogged Feeding Tube Ascorbic Acid 500 mg 09/22/20 22:00 09/26/20 09:53 Ascorbic Acid 500 Mg Tab PO 500 mg BID AMANDA Administration Aspirin 162 mg 09/21/20 15:00 09/26/20 09:53 Aspirin 81 Mg Tab Chew PO 162 mg QDAY AMANDA Administration Cholecalciferol 5,000 unit 09/23/20 10:00 09/25/20 17:39 Cholecalciferol (Vit D3) 5,000 Unit Tab PO Not Given DAILY [facility] Clopidogrel Bisulfate 75 mg 09/22/20 10:00 09/26/20 09:53 Clopidogrel 75 Mg Tab PO 75 mg QDAY AMANDA Administration Dextrose 50 ml 09/16/20 21:24 Dextrose 50% In Water (25gm) 50 Ml Syringe IV Q30MIN PRN Hypoglycemia Protocol Doxazosin Mesylate 1 mg 09/24/20 22:00 09/25/20 21:18 Doxazosin 1 Mg Tab PO 1 mg QHS [facility] Administration Famotidine 20 mg 09/22/20 10:00 09/26/20 09:53 Famotidine 20 Mg Tab PO 20 mg BID [facility] Administration Fentanyl 50 mcg 09/20/20 19:02 Fentanyl 100 Mcg/2 Ml Inj IV Q10MIN PRN ANALGESIA Heparin Sodium (Porcine) 5,000 unit 09/26/20 14:00 09/26/20 13:20 Heparin 5,000 Unit/1 Ml Vial SUB-Q 5,000 unit Q8HR [facility] Administration Hydrophilic Ointment 1 applic 09/20/20 19:02 Lip Therapy Vaseline TP Q2HR PRN Dry Lips Fentanyl Citrate 2,000 mcg in 100 mls @ 3.925 mls/hr 09/20/20 20:00 09/26/20 09:45 Fentanyl Drip Premix IV 2 mcg/kg/hr TITR AMANDA 7.85 mls/hr Administration Protocol 1 MCG/KG/HR Insulin Glargine 25 units 09/26/20 08:00 09/26/20 09:52 Insulin Glargine 100 Units/Ml SUB-Q 25 units QAMDIAB [facility] Administration Insulin Glargine 20 units 09/26/20 22:00 Insulin Glargine 100 Units/Ml SUB-Q QHS [facility] Insulin Human Regular 0 units 09/23/20 12:00 09/26/20 12:18 Insulin Regular, Human 100 Units/1 Ml SUB-Q 8 units Q6H [facility] Administration Protocol Levothyroxine Sodium 125 mcg 09/18/20 06:00 09/26/20 05:15 Levothyroxine 125 Mcg Tab PO 125 mcg DAILY@0600 [facility] Administration Magnesium Hydroxide 30 ml 09/15/20 22:09 Magnesium Hydroxide (Mom) Oral Liqd Udc PO Q4H PRN Constipation Metoprolol Tartrate 2.5 mg 09/21/20 15:00 09/26/20 13:21 Metoprolol Tartrate 5 Mg/5 Ml Inj IV 2.5 mg Q8HR AMANDA Administration Multi-Ingred Cream/Lotion/Oil/Oint 1 applic 09/20/20 19:02 Mineral Oil/Petrolatum, White Ophth Oint 3.5 Gm OU Q4HR PRN Dry Eye(s) Naloxone HCl 0.1 mg 09/15/20 18:36 Naloxone 0.4 Mg/1 Ml Inj IV Q2MIN PRN Res Rate </= 8 or 02 SAT < 92% Nitroglycerin 0.5 inch 09/22/20 06:00 09/26/20 13:20 Nitroglycerin 2% Oint 1 Gm TP 0.5 inch BIDNTG AMANDA Administration Protocol Ondansetron HCl 4 mg 09/15/20 22:09 Ondansetron 4 Mg/2 Ml Inj IV Q8H PRN Nausea And Vomiting Senna 8.8 mg 09/24/20 22:00 09/25/20 21:25 Sennosides Oral Liqd 8.8 Mg/5 Ml Oral Liqd PO Not Given QHS AMANDA Sertraline HCl 25 mg 09/17/20 12:00 09/26/20 09:53 Sertraline 25 Mg Tab PO 25 mg QDAY AMANDA Administration Simple Syrup 15 ml 09/22/20 08:06 Simple Syrup 15 Ml FEEDTUBE PRN PRN Hypoglycemia Simple Syrup 30 ml 09/22/20 08:06 Simple Syrup 15 Ml FEEDTUBE PRN PRN Hypoglycemia Sodium Bicarbonate 325 mg 09/22/20 08:06 Sodium Bicarbonate 325 Mg Tab FEEDTUBE PRN PRN For Clogged Feeding Tube Sodium Chloride 10 ml 09/16/20 10:00 09/26/20 09:55 Sodium Chloride 0.9% 10 Ml Flush Syringe IV 10 ml BID AMANDA Administration Sodium Chloride 10 ml 09/15/20 22:09 Sodium Chloride 0.9% 10 Ml Flush Syringe IV PRN PRN LINE FLUSH Sodium Chloride 5 ml 09/25/20 02:30 Sodium Chloride 0.9% 500 Ml Ivpb IV DIRECT PRN ARTERIAL TIMBER REPAIRER Tamsulosin HCl 0.4 mg 09/27/20 10:00 Tamsulosin 0.4 Mg Cap PO QDAY AMANDA Zinc Sulfate 220 mg 09/22/20 22:00 09/26/20 09:53 Zinc Sulfate 220 Mg Cap PO 220 mg BID AMANDA Administration Nutrition/Malnutrition Assess - Dietary Evaluation Nutrition/Malnutrition Findings: Nutrition Notes Start: 09/16/20 15:13 Freq: Status: Active Protocol: Document 09/26/20 11:52 (Rec: 09/26/20 11:54 [email or web address]) Nutrition Notes Initial or Follow up Reassessment Current Diagnosis Diabetes,Hypertension, Respiratory Failure Other Pertinent Diagnosis pneu, drug OD, COVID-19 Current Diet Vital AF 1.2 at 60 ml/hr Labs/Tests POC BG [phone] Phos 2.2 Pertinent Medications Sodium Phos Insulin Height 5 ft 6 in Weight 78.5 kg [place] Body Weight (kg) 59.09 BMI 27.9 Weight Status Appropriate Subjective/Other Information Insulin has been increased again this AM. Pt tolerating TF. Percent of energy/protein needs met: 100%/100% Burn Absent Trauma Absent Current % PO Negligible Minimum of two criteria No physical signs of malnutrition #1 Nutrition Diagnosis Inadequate oral intake Diagnosis Progress(for reassessment Continues documentation) Is patient on ventilator? Yes Is Patient Ambulatory and/or Out of Bed No REE-([place]-St. Jeor-confined to bed) [phone] Calculation [facility]ations [facility] Additional Notes Protein: (1.2-2g/kg) 94-157g Fluid: 1 ml/kcal Nutrition Intervention Change Diet Order: Continue TF Nutrition Support: Vital AF 1.2 at 60 ml/hr Flush 75 ml q4h or per MD Kcal 1,728 Protein (gm) 108 Fluid (mL) 1,168 Goal #1 Meet at least 75% of energy and protein needs via TF Anticipated Discharge Needs: Unable to determine at this time Follow-Up By: 09/30/20 Additional Comments F/u: BG and stable TF
[2020-09-26] MEDS: CHOLECALCIFEROL (VIT D3) 5,000 UNIT TAB PO SCH (18:09)
[2020-09-26] MEDS: SENNOSIDES ORAL LIQD 8.8 MG/5 ML ORAL LIQD PO SCH (21:01)
[2020-09-26] MEDS: DOXAZOSIN 1 MG TAB PO SCH (21:12)
[2020-09-27] MEDS: INSULIN REGULAR, HUMAN 100 UNITS/1 ML SUB-Q SCH ×4 (00:11→18:36)
--- NOTE | 2020-09-27 02:48 | XRay Report ---
CHEST 1 VIEW 09/27/2020 1:49 AM INDICATION / CLINICAL INFORMATION: follow up respiratory failure. COMPARISON: 09/26/2020 FINDINGS: SUPPORT DEVICES: Endotracheal nasogastric tubes again project in expected position HEART / MEDIASTINUM: No significant abnormality. LUNGS / PLEURA: Moderate bilateral parenchymal disease, unchanged No pneumothorax. ADDITIONAL FINDINGS: No significant additional findings. IMPRESSION: 1. Stable bilateral pneumonia Signer Name: Antonio Christian MD Signed: 09/27/2020 2:43 AM Workstation Name: [id number]
[2020-09-27 05:47] LABS: Hematocrit 37.9 % (30.3-42.9); Hemoglobin 12.9 gm/dl (10.1-14.3); Mean Corpuscular HGB Conc 34 % (30-34); Mean Corpuscular Volume 96 fl (79-97); Platelet Count 187 K/mm3 (140-440); Red Blood Count 3.94 M/mm3 (3.65-5.03); Red Cell Distribution Width 15.3 % (13.2-15.2)
[2020-09-27 06:04] LABS: Blood Urea Nitrogen 31 mg/dL (7-17); Hemolysis Index 4
[2020-09-27 06:05] LABS: BUN/Creatinine Ratio 44
[2020-09-27] MEDS: METOPROLOL TARTRATE 5 MG/5 ML INJ IV SCH ×3 (06:23→21:42)
[2020-09-27] MEDS: HEPARIN 5,000 UNIT/1 ML VIAL SUB-Q SCH ×3 (06:25→21:43)
[2020-09-27] MEDS: NITROGLYCERIN 2% OINT 1 GM TP SCH ×2 (06:27→12:59)
[2020-09-27] MEDS: LEVOTHYROXINE 125 MCG TAB PO SCH (06:29)
[2020-09-27] MEDS: INSULIN GLARGINE 100 UNITS/ML SUB-Q SCH ×2 (10:07→21:44)
[2020-09-27] MEDS: CHOLECALCIFEROL (VIT D3) 5,000 UNIT TAB PO SCH (10:07)
[2020-09-27] MEDS: SERTRALINE 25 MG TAB PO SCH (10:08)
[2020-09-27] MEDS: ASCORBIC ACID 500 MG TAB PO SCH ×2 (10:08→21:44)
[2020-09-27] MEDS: ASPIRIN 81 MG TAB CHEW PO SCH (10:08)
[2020-09-27] MEDS: CLOPIDOGREL 75 MG TAB PO SCH (10:08)
[2020-09-27] MEDS: FAMOTIDINE 20 MG TAB PO SCH ×2 (10:08→21:43)
[2020-09-27] MEDS: TAMSULOSIN 0.4 MG CAP PO SCH (10:08)
[2020-09-27] MEDS: ZINC SULFATE 220 MG CAP PO SCH ×2 (10:08→21:44)
[2020-09-27] MEDS: INSULIN LISPRO 100 UNIT/ML SUB-Q SCH ×2 (12:46→18:37)
--- NOTE | 2020-09-27 13:34 | Progress Note ---
Assessment and Plan Acute toxic metabolic encephalopathy Severe sepsis Community acquired pneumonia coronavirus-19 infection Acute hypoxemic respiratory failure Hyponatremia at presentation Diabetes, poorly controlled Lactic acidosis Urinary tract infection Tobacco use disorder (care plan discussed at length with patients eldest son today and his questions were answered) - follow lower extremity dopplers (RN asked to call) - continue Flomax - prn bladder scans +/- straight cath - continue to wean supplemental oxygen for target O2 sat's > 92% acutely - continue care as below otherwise; - continue Daily SAT and SBT assessment as tolerated - VAP bundle addressed - continue lung protective strategies - continue bronchodilators with pulmonary hygiene per RT - wean per pulmonary driven protocols otherwise - continue accuchecks with glycemic control per SSI (While critically ill target blood glucose of 140-180 mg/dL; avoid hypoglycemia) - sedation prn for target RASS -1 to -2 - avoid nephrotoxins, renally dose all medications - continue to avoid benzodiazepine's, reduce the possibility of delirium - complete anti-infective's per ID rec's - prn analgesia per CPOT score - Maintenance of sleep-wake cycle, avoid delirium - continue enteral nutritional support at goal rate as tolerated - G.I. & VTE prophylaxis - PT/OT/ROM exercises - continue mobility protocols for pressure ulcer prophylaxis - Monitor hemodynamics closely - continue other care per attending / other consultants - discharge planning ongoing concurrently COVID SPECIFIC INTERVENTIONS - continue contact and airborne isolation - Remdesivir as per ID/Pulmonary developed protocols (ordered) - continue systemic steroids for severe COVID-19 infection - follow repeat COVID tests results - zinc and vitamin C supplementation - Monitor inflammatory markers per facility protocol - ferritin, D-dimer, CRP - therapeutic anticoagulation per system Protocol based on d-dimer and clinical considerations (not indicated) .... Re-evaluate in am & prn CONDITION: CRITICAL PROGNOSIS: GUARDED CODE STATUS: FULL CODE The high probability of a clinically significant, sudden or life-threatening de terioration of the [respiratory, cardiovascular & neurologic] system(s) required my full and direct attention, intervention and personal management. The aggregate critical care time was [36] minutes without overlap. Time includes spent on; [x] Data Review and interpretation [x] Patient assessment and monitoring of vital signs [x] Documentation [x] Medication orders and management Subjective Date of service: 09/27/20 Principal diagnosis: Ac encephalopathy; CAP; Sepsis; COVID-19 infxn; Ac hypoxemic resp failure Interval history: Patient is seen today for: Acute toxic metabolic encephalopathy; CAP; Severe sepsis; COVID-19 infection; Acute hypoxemic respiratory failure UTI; DM II Seen and examined at bedside; 24hour events reviewed; nursing and respiratory care staff consulted; no adverse overnight events reported to me; resting in bed; remains on MVS; FiO2 at 90% Objective Vital Signs - 12hr 09/27/20 09/27/20 09/27/20 01:45 02:01 02:15 Temperature Pulse Rate 115 H 118 H 119 H Pulse Rate [ From Monitor] Respiratory 16 15 16 Rate Blood Pressure 102/69 116/62 117/61 O2 Sat by Pulse 94 95 93 Oximetry 09/27/20 09/27/20 09/27/20 02:30 02:45 03:00 Temperature Pulse Rate 122 H 122 H 119 H Pulse Rate [ From Monitor] Respiratory 15 16 16 Rate Blood Pressure 119/73 114/72 110/61 O2 Sat by Pulse 92 94 94 Oximetry 09/27/20 09/27/20 09/27/20 03:15 03:30 03:45 Temperature Pulse Rate 120 H 118 H 119 H Pulse Rate [ From Monitor] Respiratory 16 17 17 Rate Blood Pressure 121/64 121/71 129/66 O2 Sat by Pulse 94 95 96 Oximetry 09/27/20 09/27/20 09/27/20 04:00 04:15 04:18 Temperature 99.1 F Pulse Rate 118 H 117 H 118 H Pulse Rate [ From Monitor] Respiratory 17 16 Rate Blood Pressure 106/67 109/67 109/67 O2 Sat by Pulse 96 96 96 Oximetry 09/27/20 09/27/20 09/27/20 04:30 04:45 05:00 Temperature Pulse Rate 116 H 117 H 118 H Pulse Rate [ From Monitor] Respiratory 18 19 15 Rate Blood Pressure 119/70 119/68 121/65 O2 Sat by Pulse 96 96 95 Oximetry 09/27/20 09/27/20 09/27/20 05:15 05:30 05:45 Temperature Pulse Rate 118 H 118 H 118 H Pulse Rate [ From Monitor] Respiratory 17 17 16 Rate Blood Pressure 114/67 121/73 131/68 O2 Sat by Pulse 96 95 96 Oximetry 09/27/20 09/27/20 09/27/20 06:00 06:15 06:23 Temperature Pulse Rate 119 H 119 H 119 H Pulse Rate [ From Monitor] Respiratory 16 15 Rate Blood Pressure 126/74 130/73 130/73 O2 Sat by Pulse 96 96 Oximetry 09/27/20 09/27/20 09/27/20 06:27 06:30 06:45 Temperature Pulse Rate 115 H 115 H 104 H Pulse Rate [ From Monitor] Respiratory 16 18 Rate Blood Pressure 130/73 134/70 125/62 O2 Sat by Pulse 95 96 Oximetry 09/27/20 09/27/20 09/27/20 07:00 07:15 07:30 Temperature Pulse Rate 105 H 107 H 108 H Pulse Rate [ From Monitor] Respiratory 17 18 18 Rate Blood Pressure 119/69 115/69 123/70 O2 Sat by Pulse 96 96 96 Oximetry 09/27/20 09/27/20 09/27/20 07:45 08:00 08:15 Temperature Pulse Rate 110 H 112 H 112 H Pulse Rate [ 110 H From Monitor] Respiratory 17 16 16 Rate Blood Pressure 129/63 133/71 135/65 O2 Sat by Pulse 95 95 95 Oximetry 09/27/20 09/27/20 09/27/20 08:30 08:42 08:45 Temperature Pulse Rate 113 H 115 H 115 H Pulse Rate [ From Monitor] Respiratory 19 15 Rate Blood Pressure 133/66 146/71 146/71 O2 Sat by Pulse 95 94 94 Oximetry 09/27/20 09/27/20 09/27/20 09:00 09:15 09:30 Temperature Pulse Rate 117 H 116 H 114 H Pulse Rate [ From Monitor] Respiratory 15 15 16 Rate Blood Pressure 146/71 131/63 118/68 O2 Sat by Pulse 91 93 94 Oximetry 09/27/20 09/27/20 09/27/20 09:45 10:00 10:15 Temperature Pulse Rate 113 H 114 H 114 H Pulse Rate [ From Monitor] Respiratory 18 16 22 Rate Blood Pressure 127/64 134/65 142/58 O2 Sat by Pulse 94 94 95 Oximetry 09/27/20 09/27/20 09/27/20 10:30 10:45 11:00 Temperature Pulse Rate 108 H 108 H 108 H Pulse Rate [ From Monitor] Respiratory 18 13 16 Rate Blood Pressure 142/66 138/65 131/63 O2 Sat by Pulse 96 96 95 Oximetry 09/27/20 09/27/20 09/27/20 11:15 11:26 11:30 Temperature Pulse Rate 109 H 108 H 109 H Pulse Rate [ From Monitor] Respiratory 19 17 Rate Blood Pressure 124/58 124/58 123/55 O2 Sat by Pulse 95 95 94 Oximetry 09/27/20 09/27/20 09/27/20 11:45 12:00 12:15 Temperature Pulse Rate 106 H 107 H 105 H Pulse Rate [ From Monitor] Respiratory 15 16 16 Rate Blood Pressure 120/54 119/61 103/51 O2 Sat by Pulse 94 94 94 Oximetry 09/27/20 09/27/20 09/27/20 12:30 12:45 12:59 Temperature Pulse Rate 109 H 106 H 110 H Pulse Rate [ From Monitor] Respiratory 17 16 Rate Blood Pressure 123/59 119/58 119/58 O2 Sat by Pulse 93 94 Oximetry 09/27/20 09/27/20 13:00 13:15 Temperature Pulse Rate 93 H 96 H Pulse Rate [ From Monitor] Respiratory 17 17 Rate Blood Pressure 98/51 108/55 O2 Sat by Pulse 94 95 Oximetry Constitutional: no acute distress, other (middle aged female with mildly increased respiratory effort at rest on MVS) Eyes: non-icteric ENT: oropharynx moist, other (ETT 26 cm JOSHUA) Neck: supple, no lymphadenopathy Effort: mildly labored Ascultation: Bilateral: diminished breath sounds, rhonchi Percussion: Bilateral: not dull Cardiovascular: regular rate and rhythm Gastrointestinal: normoactive bowel sounds, soft, non-tender, non-distended (protuberant) Integumentary: normal Extremities: no cyanosis, no edema, pink and warm, pulses normal Neurologic: non-focal exam (grossly), pupils equal and round, motor strength normal and, unable to assess, other (sedated) Psychiatric: other (lethargic) CBC and BMP: 09/27/20 04:47 09/27/20 04:47 ABG, PT/INR, D-dimer: ABG ABG pH 7.369 (7.320-7.450) 09/27/20 03:03 POC ABG pCO2 61.3 mmHg (32.0-48.0) H 09/27/20 03:03 POC ABG pO2 80.6 mmHg (83-108) L 09/27/20 03:03 POC ABG HCO3 34.6 09/27/20 03:03 ABG O2 Saturation 96.3 (0-100) 09/27/20 03:03 PT/INR, D-dimer PT 20.0 Sec. (12.2-14.9) H 09/21/20 02:14 INR 1.65 (0.87-1.13) H 09/21/20 02:14 D-Dimer 1481.03 ng/mlDDU (0-234) H 09/25/20 09:43 Abnormal lab findings: Abnormal Labs 09/15/20 09/15/20 09/15/20 18:46 18:46 18:46 WBC Hgb 14.4 H MCH MCHC RDW Lymph % (Auto) Lymph # (Auto) Seg Neutrophils % Seg Neutrophils # PT INR APTT D-Dimer Heparin Anti-Xa Level ABG pH POC ABG pCO2 POC ABG pO2 ABG Oxyhemoglobin ABG Sodium ABG Potassium ABG Chloride ABG Glucose Sodium 128 L Potassium 3.2 L Chloride 89.3 L Carbon Dioxide BUN Creatinine Glucose 388 H POC Glucose Lactic Acid Calcium 8.2 L Phosphorus Ferritin AST 69 H Ammonia Lactate Dehydrogenase Total Creatine Kinase CK-MB (CK-2) Troponin T C-Reactive Protein Albumin 3.6 L Triglycerides HDL Cholesterol TSH 34.670 H Free T4 Arterial Blood Glucose Arterial Blood Ionized Calcium Urine WBC (Auto) Salicylates Acetaminophen Coronavirus (PCR) 09/15/20 09/15/20 09/15/20 18:46 18:46 18:46 WBC Hgb MCH MCHC RDW Lymph % (Auto) Lymph # (Auto) Seg Neutrophils % Seg Neutrophils # PT INR APTT D-Dimer Heparin Anti-Xa Level ABG pH POC ABG pCO2 POC ABG pO2 ABG Oxyhemoglobin ABG Sodium ABG Potassium ABG Chloride ABG Glucose Sodium Potassium Chloride Carbon Dioxide BUN Creatinine Glucose POC Glucose Lactic Acid Calcium Phosphorus Ferritin AST Ammonia 23.0 L Lactate Dehydrogenase Total Creatine Kinase CK-MB (CK-2) Troponin T C-Reactive Protein Albumin Triglycerides HDL Cholesterol TSH Free T4 Arterial Blood Glucose Arterial Blood Ionized Calcium Urine WBC (Auto) Salicylates < 0.3 L Acetaminophen 9.1 L Coronavirus (PCR) 09/15/20 09/15/20 09/15/20 19:38 19:40 19:43 WBC Hgb MCH MCHC RDW Lymph % (Auto) Lymph # (Auto) Seg Neutrophils % Seg Neutrophils # PT INR APTT D-Dimer Heparin Anti-Xa Level ABG pH POC ABG pCO2 POC ABG pO2 ABG Oxyhemoglobin ABG Sodium ABG Potassium ABG Chloride ABG Glucose Sodium Potassium Chloride Carbon Dioxide BUN Creatinine Glucose POC Glucose 398 H Lactic Acid 2.70 H* Calcium Phosphorus Ferritin AST Ammonia Lactate Dehydrogenase Total Creatine Kinase CK-MB (CK-2) Troponin T C-Reactive Protein Albumin Triglycerides HDL Cholesterol TSH Free T4 0.10 L Arterial Blood Glucose Arterial Blood Ionized Calcium Urine WBC (Auto) Salicylates Acetaminophen Coronavirus (PCR) 09/15/20 09/15/20 09/16/20 20:02 Unknown 04:47 WBC Hgb 14.8 H MCH 33 H MCHC 36 H RDW Lymph % (Auto) 7.3 L Lymph # (Auto) 0.8 L Seg Neutrophils % 85.7 H Seg Neutrophils # 8.9 H PT INR APTT D-Dimer Heparin Anti-Xa Level ABG pH POC ABG pCO2 31.1 L POC ABG pO2 46.9 L ABG Oxyhemoglobin 82.8 L ABG Sodium 129.8 L ABG Potassium 3.1 L ABG Chloride ABG Glucose 374 H Sodium Potassium Chloride Carbon Dioxide BUN Creatinine Glucose POC Glucose Lactic Acid Calcium Phosphorus Ferritin AST Ammonia Lactate Dehydrogenase Total Creatine Kinase CK-MB (CK-2) Troponin T C-Reactive Protein Albumin Triglycerides HDL Cholesterol TSH Free T4 Arterial Blood Glucose 374 H Arterial Blood Ionized Calcium Urine WBC (Auto) > 182.0 H Salicylates Acetaminophen Coronavirus (PCR) 09/16/20 09/16/20 09/16/20 04:47 07:20 08:00 WBC Hgb MCH MCHC RDW Lymph % (Auto) Lymph # (Auto) Seg Neutrophils % Seg Neutrophils # PT INR APTT D-Dimer Heparin Anti-Xa Level ABG pH POC ABG pCO2 POC ABG pO2 ABG Oxyhemoglobin ABG Sodium ABG Potassium ABG Chloride ABG Glucose Sodium 135 L D Potassium Chloride 94.1 L Carbon Dioxide BUN Creatinine Glucose 418 H POC Glucose 403 H Lactic Acid Calcium 8.3 L Phosphorus Ferritin AST Ammonia Lactate Dehydrogenase Total Creatine Kinase CK-MB (CK-2) Troponin T C-Reactive Protein Albumin Triglycerides HDL Cholesterol TSH Free T4 Arterial Blood Glucose Arterial Blood Ionized Calcium Urine WBC (Auto) Salicylates Acetaminophen Coronavirus (PCR) Positive A 09/16/20 09/16/20 09/16/20 11:43 16:17 21:38 WBC Hgb MCH MCHC RDW Lymph % (Auto) Lymph # (Auto) Seg Neutrophils % Seg Neutrophils # PT INR APTT D-Dimer 702.65 H Heparin Anti-Xa Level ABG pH POC ABG pCO2 POC ABG pO2 ABG Oxyhemoglobin ABG Sodium ABG Potassium ABG Chloride ABG Glucose Sodium Potassium Chloride Carbon Dioxide BUN Creatinine Glucose POC Glucose 417 H 353 H Lactic Acid Calcium Phosphorus Ferritin AST Ammonia Lactate Dehydrogenase Total Creatine Kinase CK-MB (CK-2) Troponin T C-Reactive Protein Albumin Triglycerides HDL Cholesterol TSH Free T4 Arterial Blood Glucose Arterial Blood Ionized Calcium Urine WBC (Auto) Salicylates Acetaminophen Coronavirus (PCR) 09/16/20 09/16/20 09/16/20 21:38 21:38 21:38 WBC Hgb MCH MCHC RDW Lymph % (Auto) Lymph # (Auto) Seg Neutrophils % Seg Neutrophils # PT INR APTT D-Dimer Heparin Anti-Xa Level ABG pH POC ABG pCO2 POC ABG pO2 ABG Oxyhemoglobin ABG Sodium ABG Potassium ABG Chloride ABG Glucose Sodium Potassium Chloride Carbon Dioxide BUN Creatinine Glucose POC Glucose Lactic Acid Calcium Phosphorus Ferritin 1089.0 H AST Ammonia Lactate Dehydrogenase 722 H Total Creatine Kinase CK-MB (CK-2) Troponin T C-Reactive Protein 6.80 H Albumin Triglycerides HDL Cholesterol TSH Free T4 Arterial Blood Glucose Arterial Blood Ionized Calcium Urine WBC (Auto) Salicylates Acetaminophen 5.0 L Coronavirus (PCR) 09/16/20 09/16/20 09/17/20 21:38 22:24 04:59 WBC Hgb MCH MCHC RDW Lymph % (Auto) Lymph # (Auto) Seg Neutrophils % Seg Neutrophils # PT INR APTT D-Dimer Heparin Anti-Xa Level ABG pH POC ABG pCO2 POC ABG pO2 ABG Oxyhemoglobin ABG Sodium ABG Potassium ABG Chloride ABG Glucose Sodium 134 L 135 L Potassium 3.5 L 3.0 L Chloride 95.1 L 97.2 L Carbon Dioxide BUN Creatinine Glucose 288 H 149 H POC Glucose 307 H Lactic Acid Calcium 8.2 L Phosphorus Ferritin AST 43 H 49 H Ammonia Lactate Dehydrogenase Total Creatine Kinase CK-MB (CK-2) Troponin T C-Reactive Protein Albumin 3.7 L 3.3 L Triglycerides HDL Cholesterol TSH Free T4 Arterial Blood Glucose Arterial Blood Ionized Calcium Urine WBC (Auto) Salicylates Acetaminophen Coronavirus (PCR) 09/17/20 09/17/20 09/17/20 12:25 16:57 21:30 WBC Hgb MCH MCHC RDW Lymph % (Auto) Lymph # (Auto) Seg Neutrophils % Seg Neutrophils # PT INR APTT D-Dimer Heparin Anti-Xa Level ABG pH POC ABG pCO2 POC ABG pO2 ABG Oxyhemoglobin ABG Sodium ABG Potassium ABG Chloride ABG Glucose Sodium Potassium Chloride Carbon Dioxide BUN Creatinine Glucose POC Glucose 199 H 313 H 304 H Lactic Acid Calcium Phosphorus Ferritin AST Ammonia Lactate Dehydrogenase Total Creatine Kinase CK-MB (CK-2) Troponin T C-Reactive Protein Albumin Triglycerides HDL Cholesterol TSH Free T4 Arterial Blood Glucose Arterial Blood Ionized Calcium Urine WBC (Auto) Salicylates Acetaminophen Coronavirus (PCR) 09/18/20 09/18/20 09/18/20 08:01 08:05 12:36 WBC Hgb MCH MCHC RDW Lymph % (Auto) Lymph # (Auto) Seg Neutrophils % Seg Neutrophils # PT INR APTT D-Dimer Heparin Anti-Xa Level ABG pH POC ABG pCO2 POC ABG pO2 ABG Oxyhemoglobin ABG Sodium ABG Potassium ABG Chloride ABG Glucose Sodium Potassium 3.1 L Chloride Carbon Dioxide BUN Creatinine Glucose 112 H POC Glucose 125 H 159 H Lactic Acid Calcium 8.3 L Phosphorus Ferritin AST 47 H Ammonia Lactate Dehydrogenase Total Creatine Kinase CK-MB (CK-2) Troponin T C-Reactive Protein Albumin 3.3 L Triglycerides HDL Cholesterol TSH Free T4 Arterial Blood Glucose Arterial Blood Ionized Calcium Urine WBC (Auto) Salicylates Acetaminophen Coronavirus (PCR) 09/18/20 09/18/20 09/19/20 16:57 21:40 06:10 WBC Hgb MCH MCHC RDW Lymph % (Auto) Lymph # (Auto) Seg Neutrophils % Seg Neutrophils # PT INR APTT D-Dimer Heparin Anti-Xa Level ABG pH POC ABG pCO2 POC ABG pO2 ABG Oxyhemoglobin ABG Sodium ABG Potassium ABG Chloride ABG Glucose Sodium Potassium 2.8 L* Chloride 97.7 L Carbon Dioxide BUN Creatinine 0.4 L Glucose 146 H POC Glucose 180 H 225 H Lactic Acid Calcium 8.2 L Phosphorus Ferritin AST 45 H Ammonia Lactate Dehydrogenase Total Creatine Kinase CK-MB (CK-2) Troponin T C-Reactive Protein Albumin 3.5 L Triglycerides HDL Cholesterol TSH Free T4 Arterial Blood Glucose Arterial Blood Ionized Calcium Urine WBC (Auto) Salicylates Acetaminophen Coronavirus (PCR) 09/19/20 09/19/20 09/19/20 08:06 11:14 17:50 WBC Hgb MCH MCHC RDW Lymph % (Auto) Lymph # (Auto) Seg Neutrophils % Seg Neutrophils # PT INR APTT D-Dimer Heparin Anti-Xa Level ABG pH POC ABG pCO2 POC ABG pO2 ABG Oxyhemoglobin ABG Sodium ABG Potassium ABG Chloride ABG Glucose Sodium Potassium Chloride Carbon Dioxide BUN Creatinine Glucose POC Glucose 175 H 210 H 291 H Lactic Acid Calcium Phosphorus Ferritin AST Ammonia Lactate Dehydrogenase Total Creatine Kinase CK-MB (CK-2) Troponin T C-Reactive Protein Albumin Triglycerides HDL Cholesterol TSH Free T4 Arterial Blood Glucose Arterial Blood Ionized Calcium Urine WBC (Auto) Salicylates Acetaminophen Coronavirus (PCR) 09/19/20 09/20/20 09/20/20 21:30 05:23 05:23 WBC Hgb MCH MCHC RDW Lymph % (Auto) Lymph # (Auto) Seg Neutrophils % Seg Neutrophils # PT INR APTT D-Dimer Heparin Anti-Xa Level ABG pH POC ABG pCO2 POC ABG pO2 ABG Oxyhemoglobin ABG Sodium ABG Potassium ABG Chloride ABG Glucose Sodium 131 L Potassium 3.3 L D Chloride 95.4 L Carbon Dioxide 18 L BUN Creatinine 0.4 L Glucose 169 H POC Glucose 232 H Lactic Acid Calcium 8.3 L Phosphorus Ferritin 738.9 H AST Ammonia Lactate Dehydrogenase 882 H Total Creatine Kinase CK-MB (CK-2) Troponin T C-Reactive Protein 11.40 H Albumin Triglycerides HDL Cholesterol TSH Free T4 Arterial Blood Glucose Arterial Blood Ionized Calcium Urine WBC (Auto) Salicylates Acetaminophen Coronavirus (PCR) 09/20/20 09/20/20 09/20/20 05:23 06:50 10:46 WBC Hgb MCH MCHC RDW Lymph % (Auto) Lymph # (Auto) Seg Neutrophils % Seg Neutrophils # PT INR APTT D-Dimer 4940.20 H Heparin Anti-Xa Level ABG pH 7.289 L POC ABG pCO2 POC ABG pO2 50.1 L ABG Oxyhemoglobin 80.8 L ABG Sodium 130.8 L ABG Potassium ABG Chloride 97.0 L ABG Glucose 275 H Sodium Potassium Chloride Carbon Dioxide BUN Creatinine Glucose POC Glucose 242 H Lactic Acid Calcium Phosphorus Ferritin AST Ammonia Lactate Dehydrogenase Total Creatine Kinase CK-MB (CK-2) Troponin T C-Reactive Protein Albumin Triglycerides HDL Cholesterol TSH Free T4 Arterial Blood Glucose 275 H Arterial Blood Ionized Calcium 4.2 L Urine WBC (Auto) Salicylates Acetaminophen Coronavirus (PCR) 09/20/20 09/20/20 09/20/20 11:58 16:30 16:41 WBC Hgb MCH MCHC RDW Lymph % (Auto) Lymph # (Auto) Seg Neutrophils % Seg Neutrophils # PT INR APTT D-Dimer Heparin Anti-Xa Level ABG pH POC ABG pCO2 27.8 L POC ABG pO2 79.7 L ABG Oxyhemoglobin ABG Sodium 131.0 L ABG Potassium ABG Chloride ABG Glucose 297 H Sodium Potassium Chloride Carbon Dioxide BUN Creatinine Glucose POC Glucose 262 H 283 H Lactic Acid Calcium Phosphorus Ferritin AST Ammonia Lactate Dehydrogenase Total Creatine Kinase CK-MB (CK-2) Troponin T C-Reactive Protein Albumin Triglycerides HDL Cholesterol TSH Free T4 Arterial Blood Glucose 297 H Arterial Blood Ionized Calcium 4.3 L Urine WBC (Auto) Salicylates Acetaminophen Coronavirus (PCR) 09/20/20 09/20/20 09/21/20 17:26 21:29 00:46 WBC Hgb MCH MCHC RDW Lymph % (Auto) Lymph # (Auto) Seg Neutrophils % Seg Neutrophils # PT INR APTT D-Dimer Heparin Anti-Xa Level ABG pH POC ABG pCO2 POC ABG pO2 ABG Oxyhemoglobin ABG Sodium ABG Potassium ABG Chloride ABG Glucose Sodium Potassium Chloride Carbon Dioxide BUN Creatinine Glucose POC Glucose 297 H 248 H Lactic Acid Calcium Phosphorus Ferritin AST Ammonia Lactate Dehydrogenase Total Creatine Kinase CK-MB (CK-2) Troponin T 0.444 H* C-Reactive Protein Albumin Triglycerides 156 H HDL Cholesterol 22 L TSH Free T4 Arterial Blood Glucose Arterial Blood Ionized Calcium Urine WBC (Auto) Salicylates Acetaminophen Coronavirus (PCR) 09/21/20 09/21/20 09/21/20 00:46 02:14 03:22 WBC Hgb MCH MCHC RDW Lymph % (Auto) Lymph # (Auto) Seg Neutrophils % Seg Neutrophils # PT 20.0 H INR 1.65 H APTT 38.2 H D-Dimer Heparin Anti-Xa Level ABG pH POC ABG pCO2 POC ABG pO2 70.3 L ABG Oxyhemoglobin 92.2 L ABG Sodium 134.2 L ABG Potassium ABG Chloride ABG Glucose 187 H Sodium 134 L Potassium Chloride Carbon Dioxide 18 L BUN 23 H Creatinine Glucose 198 H POC Glucose Lactic Acid Calcium 6.7 L D Phosphorus Ferritin AST Ammonia Lactate Dehydrogenase Total Creatine Kinase CK-MB (CK-2) Troponin T C-Reactive Protein Albumin Triglycerides HDL Cholesterol TSH Free T4 Arterial Blood Glucose 187 H Arterial Blood Ionized Calcium 4.2 L Urine WBC (Auto) Salicylates Acetaminophen Coronavirus (PCR) 09/21/20 09/21/20 09/21/20 07:26 08:15 11:21 WBC Hgb MCH MCHC RDW Lymph % (Auto) Lymph # (Auto) Seg Neutrophils % Seg Neutrophils # PT INR APTT D-Dimer Heparin Anti-Xa Level 0.97 H ABG pH POC ABG pCO2 POC ABG pO2 ABG Oxyhemoglobin ABG Sodium ABG Potassium ABG Chloride ABG Glucose Sodium Potassium Chloride Carbon Dioxide BUN Creatinine Glucose POC Glucose 157 H 153 H Lactic Acid Calcium Phosphorus Ferritin AST Ammonia Lactate Dehydrogenase Total Creatine Kinase CK-MB (CK-2) Troponin T C-Reactive Protein Albumin Triglycerides HDL Cholesterol TSH Free T4 Arterial Blood Glucose Arterial Blood Ionized Calcium Urine WBC (Auto) Salicylates Acetaminophen Coronavirus (PCR) 09/21/20 09/21/20 09/21/20 15:16 15:59 18:58 WBC Hgb MCH MCHC RDW Lymph % (Auto) Lymph # (Auto) Seg Neutrophils % Seg Neutrophils # PT INR APTT D-Dimer Heparin Anti-Xa Level 0.90 H ABG pH POC ABG pCO2 POC ABG pO2 ABG Oxyhemoglobin ABG Sodium ABG Potassium ABG Chloride ABG Glucose Sodium Potassium Chloride Carbon Dioxide BUN Creatinine Glucose POC Glucose 192 H Lactic Acid Calcium Phosphorus Ferritin AST Ammonia Lactate Dehydrogenase Total Creatine Kinase CK-MB (CK-2) Troponin T C-Reactive Protein 8.40 H Albumin Triglycerides HDL Cholesterol TSH Free T4 Arterial Blood Glucose Arterial Blood Ionized Calcium Urine WBC (Auto) Salicylates Acetaminophen Coronavirus (PCR) 09/21/20 09/21/20 09/22/20 18:58 21:14 01:33 WBC Hgb MCH MCHC RDW Lymph % (Auto) Lymph # (Auto) Seg Neutrophils % Seg Neutrophils # PT INR APTT D-Dimer Heparin Anti-Xa Level 0.78 H ABG pH POC ABG pCO2 POC ABG pO2 ABG Oxyhemoglobin ABG Sodium ABG Potassium ABG Chloride ABG Glucose Sodium Potassium Chloride Carbon Dioxide BUN Creatinine Glucose POC Glucose 172 H Lactic Acid Calcium Phosphorus Ferritin AST Ammonia Lactate Dehydrogenase Total Creatine Kinase 536 H CK-MB (CK-2) 17.8 H Troponin T 0.793 H* D C-Reactive Protein Albumin Triglycerides HDL Cholesterol TSH Free T4 Arterial Blood Glucose Arterial Blood Ionized Calcium Urine WBC (Auto) Salicylates Acetaminophen Coronavirus (PCR) 09/22/20 09/22/20 09/22/20 04:15 07:15 10:22 WBC Hgb MCH MCHC RDW Lymph % (Auto) Lymph # (Auto) Seg Neutrophils % Seg Neutrophils # PT INR APTT D-Dimer Heparin Anti-Xa Level ABG pH POC ABG pCO2 POC ABG pO2 ABG Oxyhemoglobin ABG Sodium 132.9 L ABG Potassium ABG Chloride ABG Glucose 155 H Sodium Potassium Chloride Carbon Dioxide BUN Creatinine Glucose POC Glucose 159 H Lactic Acid Calcium Phosphorus Ferritin AST Ammonia Lactate Dehydrogenase Total Creatine Kinase 1159 H CK-MB (CK-2) 14.4 H Troponin T 0.501 H* D C-Reactive Protein Albumin Triglycerides HDL Cholesterol TSH Free T4 Arterial Blood Glucose 155 H Arterial Blood Ionized Calcium 4.3 L Urine WBC (Auto) Salicylates Acetaminophen Coronavirus (PCR) 09/22/20 09/22/20 09/22/20 11:34 16:35 17:44 WBC Hgb MCH MCHC RDW Lymph % (Auto) Lymph # (Auto) Seg Neutrophils % Seg Neutrophils # PT INR APTT D-Dimer Heparin Anti-Xa Level 0.15 L ABG pH POC ABG pCO2 POC ABG pO2 ABG Oxyhemoglobin ABG Sodium ABG Potassium ABG Chloride ABG Glucose Sodium Potassium Chloride Carbon Dioxide BUN Creatinine Glucose POC Glucose 206 H 273 H Lactic Acid Calcium Phosphorus Ferritin AST Ammonia Lactate Dehydrogenase Total Creatine Kinase CK-MB (CK-2) Troponin T C-Reactive Protein Albumin Triglycerides HDL Cholesterol TSH Free T4 Arterial Blood Glucose Arterial Blood Ionized Calcium Urine WBC (Auto) Salicylates Acetaminophen Coronavirus (PCR) 09/23/20 09/23/20 09/23/20 00:32 04:00 05:11 WBC Hgb MCH MCHC RDW Lymph % (Auto) Lymph # (Auto) Seg Neutrophils % Seg Neutrophils # PT INR APTT D-Dimer Heparin Anti-Xa Level ABG pH POC ABG pCO2 POC ABG pO2 75.7 L ABG Oxyhemoglobin ABG Sodium 135.0 L ABG Potassium ABG Chloride ABG Glucose 237 H Sodium Potassium Chloride Carbon Dioxide BUN Creatinine Glucose POC Glucose 287 H 210 H Lactic Acid Calcium Phosphorus Ferritin AST Ammonia Lactate Dehydrogenase Total Creatine Kinase CK-MB (CK-2) Troponin T C-Reactive Protein Albumin Triglycerides HDL Cholesterol TSH Free T4 Arterial Blood Glucose 237 H Arterial Blood Ionized Calcium 4.5 L Urine WBC (Auto) Salicylates Acetaminophen Coronavirus (PCR) 09/23/20 09/23/20 09/23/20 08:02 10:03 10:03 WBC 13.8 H Hgb MCH MCHC RDW Lymph % (Auto) Lymph # (Auto) Seg Neutrophils % Seg Neutrophils # PT INR APTT D-Dimer 2573.89 H Heparin Anti-Xa Level ABG pH POC ABG pCO2 POC ABG pO2 ABG Oxyhemoglobin ABG Sodium ABG Potassium ABG Chloride ABG Glucose Sodium Potassium Chloride Carbon Dioxide BUN Creatinine Glucose POC Glucose 268 H Lactic Acid Calcium Phosphorus Ferritin AST Ammonia Lactate Dehydrogenase Total Creatine Kinase CK-MB (CK-2) Troponin T C-Reactive Protein Albumin Triglycerides HDL Cholesterol TSH Free T4 Arterial Blood Glucose Arterial Blood Ionized Calcium Urine WBC (Auto) Salicylates Acetaminophen Coronavirus (PCR) 09/23/20 09/23/20 09/23/20 10:03 10:03 10:03 WBC Hgb MCH MCHC RDW Lymph % (Auto) Lymph # (Auto) Seg Neutrophils % Seg Neutrophils # PT INR APTT D-Dimer Heparin Anti-Xa Level 0.12 L ABG pH POC ABG pCO2 POC ABG pO2 ABG Oxyhemoglobin ABG Sodium ABG Potassium ABG Chloride ABG Glucose Sodium Potassium Chloride Carbon Dioxide BUN 26 H Creatinine Glucose 271 H POC Glucose Lactic Acid Calcium 8.2 L D Phosphorus Ferritin 1084.0 H AST Ammonia Lactate Dehydrogenase 1592 H Total Creatine Kinase CK-MB (CK-2) Troponin T C-Reactive Protein 9.10 H Albumin Triglycerides HDL Cholesterol TSH Free T4 Arterial Blood Glucose Arterial Blood Ionized Calcium Urine WBC (Auto) Salicylates Acetaminophen Coronavirus (PCR) 09/23/20 09/23/20 09/23/20 12:17 18:30 20:01 WBC Hgb MCH MCHC RDW Lymph % (Auto) Lymph # (Auto) Seg Neutrophils % Seg Neutrophils # PT INR APTT D-Dimer Heparin Anti-Xa Level 0.15 L ABG pH POC ABG pCO2 POC ABG pO2 ABG Oxyhemoglobin ABG Sodium ABG Potassium ABG Chloride ABG Glucose Sodium Potassium Chloride Carbon Dioxide BUN Creatinine Glucose POC Glucose 282 H 392 H Lactic Acid Calcium Phosphorus Ferritin AST Ammonia Lactate Dehydrogenase Total Creatine Kinase CK-MB (CK-2) Troponin T C-Reactive Protein Albumin Triglycerides HDL Cholesterol TSH Free T4 Arterial Blood Glucose Arterial Blood Ionized Calcium Urine WBC (Auto) Salicylates Acetaminophen Coronavirus (PCR) 09/23/20 09/23/20 09/24/20 21:08 23:58 04:00 WBC Hgb MCH MCHC RDW Lymph % (Auto) Lymph # (Auto) Seg Neutrophils % Seg Neutrophils # PT INR APTT D-Dimer Heparin Anti-Xa Level ABG pH POC ABG pCO2 55.6 H POC ABG pO2 75.6 L ABG Oxyhemoglobin ABG Sodium 135.9 L ABG Potassium ABG Chloride ABG Glucose 330 H Sodium Potassium Chloride Carbon Dioxide BUN Creatinine Glucose POC Glucose 373 H 391 H Lactic Acid Calcium Phosphorus Ferritin AST Ammonia Lactate Dehydrogenase Total Creatine Kinase CK-MB (CK-2) Troponin T C-Reactive Protein Albumin Triglycerides HDL Cholesterol TSH Free T4 Arterial Blood Glucose 330 H Arterial Blood Ionized Calcium 4.4 L Urine WBC (Auto) Salicylates Acetaminophen Coronavirus (PCR) 09/24/20 09/24/20 09/24/20 04:30 04:30 05:04 WBC 12.4 H Hgb MCH MCHC RDW Lymph % (Auto) Lymph # (Auto) Seg Neutrophils % Seg Neutrophils # PT INR APTT D-Dimer Heparin Anti-Xa Level ABG pH POC ABG pCO2 POC ABG pO2 ABG Oxyhemoglobin ABG Sodium ABG Potassium ABG Chloride ABG Glucose Sodium Potassium Chloride Carbon Dioxide BUN 25 H Creatinine Glucose 337 H POC Glucose 316 H Lactic Acid Calcium 8.0 L Phosphorus Ferritin AST Ammonia Lactate Dehydrogenase Total Creatine Kinase CK-MB (CK-2) Troponin T C-Reactive Protein Albumin Triglycerides HDL Cholesterol TSH Free T4 Arterial Blood Glucose Arterial Blood Ionized Calcium Urine WBC (Auto) Salicylates Acetaminophen Coronavirus (PCR) 09/24/20 09/24/20 09/24/20 11:41 17:32 23:41 WBC Hgb MCH MCHC RDW Lymph % (Auto) Lymph # (Auto) Seg Neutrophils % Seg Neutrophils # PT INR APTT D-Dimer Heparin Anti-Xa Level ABG pH POC ABG pCO2 POC ABG pO2 ABG Oxyhemoglobin ABG Sodium ABG Potassium ABG Chloride ABG Glucose Sodium Potassium Chloride Carbon Dioxide BUN Creatinine Glucose POC Glucose 240 H 271 H 349 H Lactic Acid Calcium Phosphorus Ferritin AST Ammonia Lactate Dehydrogenase Total Creatine Kinase CK-MB (CK-2) Troponin T C-Reactive Protein Albumin Triglycerides HDL Cholesterol TSH Free T4 Arterial Blood Glucose Arterial Blood Ionized Calcium Urine WBC (Auto) Salicylates Acetaminophen Coronavirus (PCR) 09/25/20 09/25/20 09/25/20 05:11 09:43 09:43 WBC Hgb MCH MCHC RDW 15.4 H Lymph % (Auto) Lymph # (Auto) Seg Neutrophils % Seg Neutrophils # PT INR APTT D-Dimer 1481.03 H Heparin Anti-Xa Level ABG pH POC ABG pCO2 POC ABG pO2 ABG Oxyhemoglobin ABG Sodium ABG Potassium ABG Chloride ABG Glucose Sodium Potassium Chloride Carbon Dioxide BUN Creatinine Glucose POC Glucose 319 H Lactic Acid Calcium Phosphorus Ferritin AST Ammonia Lactate Dehydrogenase Total Creatine Kinase CK-MB (CK-2) Troponin T C-Reactive Protein Albumin Triglycerides HDL Cholesterol TSH Free T4 Arterial Blood Glucose Arterial Blood Ionized Calcium Urine WBC (Auto) Salicylates Acetaminophen Coronavirus (PCR) 09/25/20 09/25/20 09/25/20 09:43 09:43 09:43 WBC Hgb MCH MCHC RDW Lymph % (Auto) Lymph # (Auto) Seg Neutrophils % Seg Neutrophils # PT INR APTT D-Dimer Heparin Anti-Xa Level 0.10 L ABG pH POC ABG pCO2 POC ABG pO2 ABG Oxyhemoglobin ABG Sodium ABG Potassium ABG Chloride ABG Glucose Sodium Potassium Chloride Carbon Dioxide 33 H BUN 26 H Creatinine Glucose 306 H POC Glucose Lactic Acid Calcium 8.1 L Phosphorus Ferritin 670.5 H AST Ammonia Lactate Dehydrogenase 948 H Total Creatine Kinase CK-MB (CK-2) Troponin T C-Reactive Protein 6.70 H Albumin Triglycerides HDL Cholesterol TSH Free T4 Arterial Blood Glucose Arterial Blood Ionized Calcium Urine WBC (Auto) Salicylates Acetaminophen Coronavirus (PCR) 09/25/20 09/25/20 09/25/20 11:52 13:38 17:37 WBC Hgb MCH MCHC RDW Lymph % (Auto) Lymph # (Auto) Seg Neutrophils % Seg Neutrophils # PT INR APTT D-Dimer Heparin Anti-Xa Level ABG pH POC ABG pCO2 60.9 H POC ABG pO2 59.7 L ABG Oxyhemoglobin 90.2 L ABG Sodium ABG Potassium ABG Chloride ABG Glucose 336 H Sodium Potassium Chloride Carbon Dioxide BUN Creatinine Glucose POC Glucose 313 H 379 H Lactic Acid Calcium Phosphorus Ferritin AST Ammonia Lactate Dehydrogenase Total Creatine Kinase CK-MB (CK-2) Troponin T C-Reactive Protein Albumin Triglycerides HDL Cholesterol TSH Free T4 Arterial Blood Glucose 336 H Arterial Blood Ionized Calcium 4.4 L Urine WBC (Auto) Salicylates Acetaminophen Coronavirus (PCR) 09/25/20 09/25/20 09/26/20 20:52 23:23 00:32 WBC Hgb MCH MCHC RDW Lymph % (Auto) Lymph # (Auto) Seg Neutrophils % Seg Neutrophils # PT INR APTT D-Dimer Heparin Anti-Xa Level 0.10 L ABG pH POC ABG pCO2 POC ABG pO2 ABG Oxyhemoglobin ABG Sodium ABG Potassium ABG Chloride ABG Glucose Sodium Potassium Chloride Carbon Dioxide BUN Creatinine Glucose POC Glucose 387 H 269 H Lactic Acid Calcium Phosphorus Ferritin AST Ammonia Lactate Dehydrogenase Total Creatine Kinase CK-MB (CK-2) Troponin T C-Reactive Protein Albumin Triglycerides HDL Cholesterol TSH Free T4 Arterial Blood Glucose Arterial Blood Ionized Calcium Urine WBC (Auto) Salicylates Acetaminophen Coronavirus (PCR) 09/26/20 09/26/20 09/26/20 02:23 02:23 03:53 WBC 11.4 H Hgb MCH MCHC RDW Lymph % (Auto) Lymph # (Auto) Seg Neutrophils % Seg Neutrophils # PT INR APTT D-Dimer Heparin Anti-Xa Level ABG pH POC ABG pCO2 58.5 H POC ABG pO2 69.5 L ABG Oxyhemoglobin 93.5 L ABG Sodium ABG Potassium ABG Chloride ABG Glucose 272 H Sodium Potassium Chloride Carbon Dioxide 33 H BUN 27 H Creatinine Glucose 316 H POC Glucose Lactic Acid Calcium 7.9 L Phosphorus 2.20 L Ferritin AST Ammonia Lactate Dehydrogenase Total Creatine Kinase CK-MB (CK-2) Troponin T C-Reactive Protein Albumin Triglycerides HDL Cholesterol TSH Free T4 Arterial Blood Glucose 272 H Arterial Blood Ionized Calcium 4.3 L Urine WBC (Auto) Salicylates Acetaminophen Coronavirus (PCR) 09/26/20 09/26/20 09/26/20 05:43 05:43 11:57 WBC Hgb MCH MCHC RDW Lymph % (Auto) Lymph # (Auto) Seg Neutrophils % Seg Neutrophils # PT INR APTT D-Dimer Heparin Anti-Xa Level 0.15 L ABG pH POC ABG pCO2 POC ABG pO2 ABG Oxyhemoglobin ABG Sodium ABG Potassium ABG Chloride ABG Glucose Sodium Potassium Chloride Carbon Dioxide BUN Creatinine Glucose POC Glucose 277 H 345 H Lactic Acid Calcium Phosphorus Ferritin AST Ammonia Lactate Dehydrogenase Total Creatine Kinase CK-MB (CK-2) Troponin T C-Reactive Protein Albumin Triglycerides HDL Cholesterol TSH Free T4 Arterial Blood Glucose Arterial Blood Ionized Calcium Urine WBC (Auto) Salicylates Acetaminophen Coronavirus (PCR) 09/26/20 09/26/20 09/26/20 13:17 17:53 23:45 WBC Hgb MCH MCHC RDW Lymph % (Auto) Lymph # (Auto) Seg Neutrophils % Seg Neutrophils # PT INR APTT D-Dimer Heparin Anti-Xa Level ABG pH POC ABG pCO2 POC ABG pO2 ABG Oxyhemoglobin ABG Sodium ABG Potassium ABG Chloride ABG Glucose Sodium Potassium Chloride Carbon Dioxide BUN Creatinine Glucose POC Glucose 292 H 331 H Lactic Acid 2.50 H* Calcium Phosphorus Ferritin AST Ammonia Lactate Dehydrogenase Total Creatine Kinase CK-MB (CK-2) Troponin T C-Reactive Protein Albumin Triglycerides HDL Cholesterol TSH Free T4 Arterial Blood Glucose Arterial Blood Ionized Calcium Urine WBC (Auto) Salicylates Acetaminophen Coronavirus (PCR) 09/27/20 09/27/20 09/27/20 03:03 04:47 04:47 WBC 11.8 H Hgb MCH 33 H MCHC RDW 15.3 H Lymph % (Auto) Lymph # (Auto) Seg Neutrophils % Seg Neutrophils # PT INR APTT D-Dimer Heparin Anti-Xa Level ABG pH POC ABG pCO2 61.3 H POC ABG pO2 80.6 L ABG Oxyhemoglobin ABG Sodium ABG Potassium 4.6 H ABG Chloride ABG Glucose 358 H Sodium Potassium Chloride Carbon Dioxide 34 H BUN 31 H Creatinine Glucose 330 H POC Glucose Lactic Acid Calcium 8.0 L Phosphorus Ferritin AST Ammonia Lactate Dehydrogenase Total Creatine Kinase CK-MB (CK-2) Troponin T C-Reactive Protein Albumin Triglycerides HDL Cholesterol TSH Free T4 Arterial Blood Glucose 358 H Arterial Blood Ionized Calcium 4.2 L Urine WBC (Auto) Salicylates Acetaminophen Coronavirus (PCR) 09/27/20 09/27/20 09/27/20 04:47 05:15 12:29 WBC Hgb MCH MCHC RDW Lymph % (Auto) Lymph # (Auto) Seg Neutrophils % Seg Neutrophils # PT INR APTT D-Dimer Heparin Anti-Xa Level < 0.10 L ABG pH POC ABG pCO2 POC ABG pO2 ABG Oxyhemoglobin ABG Sodium ABG Potassium ABG Chloride ABG Glucose Sodium Potassium Chloride Carbon Dioxide BUN Creatinine Glucose POC Glucose 303 H 310 H Lactic Acid Calcium Phosphorus Ferritin AST Ammonia Lactate Dehydrogenase Total Creatine Kinase CK-MB (CK-2) Troponin T C-Reactive Protein Albumin Triglycerides HDL Cholesterol TSH Free T4 Arterial Blood Glucose Arterial Blood Ionized Calcium Urine WBC (Auto) Salicylates Acetaminophen Coronavirus (PCR) Allied health notes reviewed: nursing
--- NOTE | 2020-09-27 18:02 | Progress Note ---
Assessment and Plan Assessment and plan: This is a 54-year-old female with bipolar disorder, hypothyroidism, hypertension, diabetes mellitus admitted for acute hypoxic respiratory failure, COVID-19 pneumonia, NSTEMI Neuro: Acute metabolic encephalopathy, drug ingestion, h/o bipolar -Psych consult, appreciate recommendations -Zoloft -intact cough/gag, PERRL -Avoid delirium -Sedated with fentanyl, goal RASS 0 to -1 Cardiology: SR, NSTEMI, h/o HTN -Cardiology consulted, appreciate recommendations -Echocardiogram shows diastolic function normal, LVEF 50 to 55%, mild to moderate concentric LVH, mild AR, mild MR, trace TR, RVSP normal at 17 mmHg -Aspirin 162, Plavix 75, beta-genny, as needed nitroglycerin -Blood pressure monitoring per protocol -Heparin drip Respiratory: Acute hypoxic respiratory failure -On mechanical ventilation, wean as tolerated -CCM consulted, appreciate recommendations -VAP bundle -SPO2 monitoring -Serial CXR and ABGs -Current vent settings: AC/PRVC TV 450, R 18, PEEP 18, 90% fiO2 -see rt notes for titration -09/27 CXR and ABG reviewed GI: NAD -Nutrition consulted, appreciate recommendations -Tube feedings -Accu-Cheks every 6 -SSI -PPI -BM: [place] : Urinary retention -purwick -Patient is on doxazosin, flomax -prn bladder scan Endo: Hypothyroidism, h/o DM -SSI -Accu-Cheks every 6 -Synthroid -Avoid hypoglycemia -Long-acting insulin, titrate as needed Heme: Leukocytosis -Trend CBC -Transfuse for hemoglobin less than 7 -Systemic anticoagulation with heparin drip ID: COVID-19 pneumonia, UTI, sepsis, lactic acidosis -COVID-19 PCR + 09/16/2020 -Infectious disease consulted, appreciate recommendations -S/p remdesivir 5 days -Dexamethasone -09/24 Actemra -ABX completed -Contact/droplet precautions -Trend COVID-19 inflammatory markers The high probability of a clinically significant, sudden or life threatening deterioration of the [cardiorespiratory] system(s) required my full and direct attention, intervention and personal management. The aggregate critical care time was [60] minutes. This time is in addition to time spent performing reported procedures but includes the following: [x] Data Review and interpretation [x] Patient assessment and monitoring of vital signs [x] Documentation [x] Medication orders and management Disposition Plan: icu Total Time Spent with Patient (Minutes): 60 History Interval history: This is a 54-year-old female with bipolar disorder, hypothyroidism, hypertension, diabetes mellitus who presents to the emergency department via EMS after having being found on the floor with a generalized weakness vs syncope as the patient is in the case that she took some trazodone in order to get to sleep but cannot recall how many tablets she took her dosage. The final regimen patient was confused but arousable and responds to questions during her course of stay. In the emergency department she was found to be hypoxic upon arrival with O2 sat of 82% on room air and was placed on supplemental oxygen. Work-up in the emergency department included a CXR which revealed patchy parenchymal opacities, hyponatremia of 128, hypokalemia 3.2, elevated blood glucose of 388, lactic acidosis 2.7, elevated TSH at 34.67 and free T4 at 0.1. UA revealed UTI and tox screen revealed Tylenol level of 9.1. Patient was admitted to the hospital service with acute hypoxic respiratory failure secondary to pneumonia, hypokalemia, drug overdose and hyperglycemia. She was admitted as a COVID-19 PUI and infectious disease was also consulted. Psych was consulted for history of bipolar and possible drug overdose. Upon arrival to the ICU for progressive shortness of breath and progressively worsening CXR patient was noted to have an NSTEMI and cardiology was consulted. 09/16/2020: COVID-pneumonia. Coronavirus PCR positive, Patient on 5 L nasal cannula oxygen 09/17/2020: Covid pneumonia, Covid PCR positive yesterday. Patient on 5 L nasal cannula oxygen. ID consult appreciated, On remdesivir 09/18/2020: Still on 5 L nasal cannula oxygen, Saturations dropped to 88% on 3 L nasal cannula oxygen, Trying to wean but not possible, Continue remdesivir 09/20/2020: Patient is severely hypoxemic, requiring very high flow oxygen And intermittent BiPAP, x-ray chest worsening infiltrates. Patient is severely hypoxemic even on BiPAP, final assembler boat recommend. Transfer to ICU for close observation and possible intubation if no improvement . I called [facility]K patient's m other and discussed in detail patient's deterioration, severe hypoxemia, Transfer to ICU, possible intubation if needed she informed me that. Her recently, With Covid infection, and she herself is Covid positive. 09/21/2020; patient was intubated yesterday, On ventilatory support, Non-ST elevation VA, check echocardiogram, Cardiology evaluation noted and appreciated. Discussed with 09/22: Patient's PEEP was increased to 14. [facility], will order to remove her Laura catheter today and IV heparin was changed to IV Lovenox 09/23: Continue current medical management for NSTEMI, advance O ETT by 1 cm, increase PEEP and reduced FiO2 per CCM. Patient had retention today and Laura will be replaced with 30 straight cath and patient will be started on Flomax. 09/24: Patient received Actemra today, CCM added doxazosin, we increase Lantus and SSI today for tighter glycemic control. 09/25: No acute events reported overnight. Increase in lantus. Vent changes made in accordance to ABG. 09/26: No acute overnight events reported. increased lantus again 09/27: family updated by [facility], BLE dopplars pending, increased lantus. Hospitalist Physical - Constitutional Vitals: Temp Pulse Resp BP Pulse Ox 99.1 F 118 H 13 124/70 95 09/27/20 04:00 09/27/20 17:30 09/27/20 17:30 09/27/20 17:30 09/27/20 17:30 General appearance: Present: no acute distress, well-nourished, other (Intubated on vent, sedated) - EENT Eyes: Present: PERRL ENT: clear oral mucosa, dentition normal - Neck Neck: Absent: masses or JVD, cervical LAD - Respiratory Respiratory effort: normal Respiratory: bilateral: diminished - Cardiovascular Rhythm: regular Heart Sounds: Present: S1 & S2. Absent: systolic murmur, diastolic murmur - Extremities Extremities: no ischemia, pulses intact, pulses symmetrical, No edema, normal temperature, normal color Peripheral Pulses: within normal limits - Abdominal General gastrointestinal: soft, non-tender, normal bowel sounds - Integumentary Integumentary: Present: warm, dry - Psychiatric Psychiatric: other (not interactive) - Neurologic Neurologic: other (not interactive, intact cough/gag) - Allied Health Allied health notes reviewed: nursing, RT HEART Score - HEART Score Troponin: Troponin T 0.501 ng/mL (0.00-0.029) H* D 09/22/20 10:22 Results - Labs CBC & Chem 7: 09/27/20 04:47 09/27/20 04:47 Labs: Laboratory Last Values WBC 11.8 K/mm3 (4.5-11.0) H 09/27/20 04:47 RBC 3.94 M/mm3 (3.65-5.03) 09/27/20 04:47 Hgb 12.9 gm/dl (10.1-14.3) 09/27/20 04:47 Hct 37.9 % (30.3-42.9) 09/27/20 04:47 MCV 96 fl (79-97) 09/27/20 04:47 MCH 33 pg (28-32) H 09/27/20 04:47 MCHC 34 % (30-34) 09/27/20 04:47 RDW 15.3 % (13.2-15.2) H 09/27/20 04:47 Plt Count 187 K/mm3 (140-440) 09/27/20 04:47 Lymph % (Auto) 7.3 % (13.4-35.0) L 09/16/20 04:47 [place] % (Auto) 6.6 % (0.0-7.3) 09/16/20 04:47 Eos % (Auto) 0.0 % (0.0-4.3) 09/16/20 04:47 Baso % (Auto) 0.4 % (0.0-1.8) 09/16/20 04:47 Lymph # (Auto) 0.8 K/mm3 (1.2-5.4) L 09/16/20 04:47 [place] # (Auto) 0.7 K/mm3 (0.0-0.8) 09/16/20 04:47 Eos # (Auto) 0.0 K/mm3 (0.0-0.4) 09/16/20 04:47 Baso # (Auto) 0.0 K/mm3 (0.0-0.1) 09/16/20 04:47 Seg Neutrophils % 85.7 % (40.0-70.0) H 09/16/20 04:47 Seg Neutrophils # 8.9 K/mm3 (1.8-7.7) H 09/16/20 04:47 PT 20.0 Sec. (12.2-14.9) H 09/21/20 02:14 INR 1.65 (0.87-1.13) H 09/21/20 02:14 APTT 38.2 Sec. (24.2-36.6) H 09/21/20 02:14 D-Dimer 1481.03 ng/mlDDU (0-234) H 09/25/20 09:43 Heparin Anti-Xa Level < 0.10 U.I./ml (0.3-0.7) L 09/27/20 04:47 ABG pH 7.369 (7.320-7.450) 09/27/20 03:03 POC ABG pCO2 61.3 mmHg (32.0-48.0) H 09/27/20 03:03 POC ABG pO2 80.6 mmHg (83-108) L 09/27/20 03:03 POC ABG HCO3 34.6 09/27/20 03:03 ABG O2 Saturation 96.3 (0-100) 09/27/20 03:03 POC ABG Base Excess 7.2 09/27/20 03:03 ABG Hemoglobin 13.7 (12.0-17.5) 09/27/20 03:03 ABG Oxyhemoglobin 95.1 (94-98) 09/27/20 03:03 ABG Methemoglobin 0.3 (0.0-1.5) 09/27/20 03:03 ABG Sodium 140.4 mmol/L (136.0-145.0) 09/27/20 03:03 ABG Potassium 4.6 mmol/L (3.40-4.50) H 09/27/20 03:03 ABG Chloride 105.0 mmol/L (98-107) 09/27/20 03:03 ABG Glucose 358 mg/dL (65-95) H 09/27/20 03:03 VBG pH 7.368 (7.320-7.420) 09/15/20 18:46 Carboxyhemoglobin 0.9 (0.5-1.5) 09/27/20 03:03 FiO2 % 90.0 09/27/20 03:03 Sodium 142 mmol/L (137-145) 09/27/20 04:47 Potassium 4.8 mmol/L (3.6-5.0) 09/27/20 04:47 Chloride 102.3 mmol/L (98-107) 09/27/20 04:47 Carbon Dioxide 34 mmol/L (22-30) H 09/27/20 04:47 Anion Gap 11 mmol/L 09/27/20 04:47 BUN 31 mg/dL (7-17) H 09/27/20 04:47 Creatinine 0.7 mg/dL (0.6-1.2) 09/27/20 04:47 Estimated GFR > 60 ml/min 09/27/20 04:47 BUN/Creatinine Ratio 44 % 09/27/20 04:47 Glucose 330 mg/dL (65-100) H 09/27/20 04:47 POC Glucose 277 mg/dL (70-105) H 09/27/20 17:06 Lactic Acid 2.50 mmol/L (0.7-2.0) H* 09/26/20 13:17 Calcium 8.0 mg/dL (8.4-10.2) L 09/27/20 04:47 Phosphorus 2.80 mg/dL (2.5-4.5) D 09/27/20 04:47 Magnesium 2.20 mg/dL (1.7-2.3) 09/26/20 02:23 Ferritin 670.5 ng/mL (10.0-200.0) H 09/25/20 09:43 Total Bilirubin 0.80 mg/dL (0.1-1.2) 09/19/20 06:10 AST 45 units/L (5-40) H 09/19/20 06:10 ALT 35 units/L (7-56) 09/19/20 06:10 Alkaline Phosphatase 108 units/L (35-129) 09/19/20 06:10 Ammonia 23.0 umol/L (25-60) L 09/15/20 18:46 Lactate Dehydrogenase 948 units/L (91-180) H 09/25/20 09:43 Total Creatine Kinase 1159 units/L (30-135) H 09/22/20 10:22 CK-MB (CK-2) 14.4 ng/mL (0.0-4.0) H 09/22/20 10:22 CK-MB (CK-2) Rel Index 1.2 (0-4) 09/22/20 10:22 Troponin T 0.501 ng/mL (0.00-0.029) H* D 09/22/20 10:22 C-Reactive Protein 6.70 mg/dL (0.00-1.30) H 09/25/20 09:43 Total Protein 6.6 g/dL (6.3-8.2) 09/19/20 06:10 Albumin 3.5 g/dL (3.9-5) L 09/19/20 06:10 Albumin/Globulin Ratio 1.1 % 09/19/20 06:10 Triglycerides 156 mg/dL (2-149) H 09/21/20 00:46 Cholesterol 139 mg/dL (50-199) 09/21/20 00:46 LDL Cholesterol Direct 85 mg/dL (50-130) 09/21/20 00:46 HDL Cholesterol 22 mg/dL (40-59) L 09/21/20 00:46 Cholesterol/HDL Ratio 6.31 % 09/21/20 00:46 Procalcitonin 0.11 ng/mL (<0.15) 09/25/20 09:43 TSH 34.670 mlU/mL (0.270-4.200) H 09/15/20 18:46 Free T4 0.10 ng/dL (0.76-1.46) L 09/15/20 19:43 Arterial Blood Glucose 358 mg/dL (65-95) H 09/27/20 03:03 Arterial Blood Ionized Calcium 4.2 mg/dL (4.6-5.3) L 09/27/20 03:03 Urine Color Yellow (Yellow) 09/15/20 Unknown Urine Turbidity Cloudy (Clear) 09/15/20 Unknown Urine pH 7.0 (5.0-7.0) 09/15/20 Unknown Ur Specific [place] 1.017 (1.003-1.030) 09/15/20 Unknown Urine Protein 100 mg/dl mg/dL (Negative) 09/15/20 Unknown Urine Glucose (UA) >=500 mg/dL (Negative) 09/15/20 Unknown Urine Ketones 20 mg/dL (Negative) 09/15/20 Unknown Urine Blood Lg (Negative) 09/15/20 Unknown Urine Nitrite Neg (Negative) 09/15/20 Unknown Urine Bilirubin Neg (Negative) 09/15/20 Unknown Urine Urobilinogen < 2.0 mg/dL (<2.0) 09/15/20 Unknown Ur Leukocyte Esterase Lg (Negative) 09/15/20 Unknown Urine WBC (Auto) > 182.0 /HPF (0.0-6.0) H 09/15/20 Unknown Urine RBC (Auto) 92.0 /HPF (0.0-6.0) 09/15/20 Unknown U Epithel Cells (Auto) 4.0 /HPF (0-13.0) 09/15/20 Unknown Urine Bacteria (Auto) 3+ /HPF (Negative) 09/15/20 Unknown Urine WBC Clumps 2+ /HPF 09/15/20 Unknown Urine Yeast (Budding) 3+ /HPF 09/15/20 Unknown Salicylates < 0.3 mg/dL (2.8-20.0) L 09/15/20 18:46 Urine Opiates Screen Presumptive negative 09/15/20 Unknown Urine Methadone Screen Presumptive negative 09/15/20 Unknown Acetaminophen 5.0 ug/mL (10.0-30.0) L 09/16/20 21:38 Ur Barbiturates Screen Presumptive negative 09/15/20 Unknown Ur Phencyclidine Scrn Presumptive negative 09/15/20 Unknown Ur Amphetamines Screen Presumptive negative 09/15/20 Unknown U Benzodiazepines Scrn Presumptive negative 09/15/20 Unknown Urine Cocaine Screen Presumptive negative 09/15/20 Unknown U Marijuana (THC) Screen Presumptive negative 09/15/20 Unknown Drugs of Abuse Note Disclamer 09/15/20 Unknown Plasma/Serum Alcohol < 0.01 % (0-0.07) 09/15/20 18:46 Coronavirus (PCR) Positive (Negative) A 09/16/20 08:00 Laura/IV: Voiding Method External Female Catheter Active Medications - Current Medications Current Medications: Generic Name Dose Route Start Last Admin Trade Name Freq PRN Reason Stop Dose Admin Albuterol 2.5 mg 09/20/20 12:28 Albuterol 2.5 Mg/3 Ml Nebu IH Q4HRT PRN Shortness Of Breath Lipase/Protease/Amylase 1 each 09/22/20 08:06 Lipase 10,500/Protease 25,000/Amylase 43,750 (Units) Cap FEEDTUBE PRN PRN For Clogged Feeding Tube Ascorbic Acid 500 mg 09/22/20 22:00 09/27/20 10:08 Ascorbic Acid 500 Mg Tab PO 500 mg BID AMANDA Administration Aspirin 162 mg 09/21/20 15:00 09/27/20 10:08 Aspirin 81 Mg Tab Chew PO 162 mg QDAY AMANDA Administration Cholecalciferol 5,000 unit 09/23/20 10:00 09/27/20 10:07 Cholecalciferol (Vit D3) 5,000 Unit Tab PO 5,000 unit DAILY AMANDA Administration Clopidogrel Bisulfate 75 mg 09/22/20 10:00 09/27/20 10:08 Clopidogrel 75 Mg Tab PO 75 mg QDAY [facility] Administration Dextrose 50 ml 09/16/20 21:24 Dextrose 50% In Water (25gm) 50 Ml Syringe IV Q30MIN PRN Hypoglycemia Protocol Doxazosin Mesylate 1 mg 09/24/20 22:00 09/26/20 21:12 Doxazosin 1 Mg Tab PO Not Given QHS [facility] Famotidine 20 mg 09/22/20 10:00 09/27/20 10:08 Famotidine 20 Mg Tab PO 20 mg BID [facility] Administration Fentanyl 50 mcg 09/20/20 19:02 Fentanyl 100 Mcg/2 Ml Inj IV Q10MIN PRN ANALGESIA Heparin Sodium (Porcine) 5,000 unit 09/26/20 14:00 09/27/20 12:59 Heparin 5,000 Unit/1 Ml Vial SUB-Q 5,000 unit Q8HR [facility] Administration Hydrophilic Ointment 1 applic 09/20/20 19:02 Lip Therapy Vaseline TP Q2HR PRN Dry Lips Fentanyl Citrate 2,000 mcg in 100 mls @ 3.925 mls/hr 09/20/20 20:00 09/27/20 16:43 Fentanyl Drip Premix IV 1 mcg/kg/hr TITR AMANDA 3.925 mls/hr Titration Protocol 1 MCG/KG/HR Insulin Glargine 25 units 09/26/20 08:00 09/27/20 10:07 Insulin Glargine 100 Units/Ml SUB-Q 25 units QAMDIAB AMANDA Administration Insulin Glargine 20 units 09/26/20 22:00 09/26/20 21:12 Insulin Glargine 100 Units/Ml SUB-Q 20 units QHS [facility] Administration Insulin Human Lispro 3 unit 09/27/20 12:00 09/27/20 12:46 Insulin Lispro 100 Unit/Ml SUB-Q 3 unit Q6HR [facility] Administration Insulin Human Regular 0 units 09/23/20 12:00 09/27/20 12:45 Insulin Regular, Human 100 Units/1 Ml SUB-Q 8 units Q6H AMANDA Administration Protocol Levothyroxine Sodium 125 mcg 09/18/20 06:00 09/27/20 06:29 Levothyroxine 125 Mcg Tab PO 125 mcg DAILY@0600 [facility] Administration Magnesium Hydroxide 30 ml 09/15/20 22:09 Magnesium Hydroxide (Mom) Oral Liqd Udc PO Q4H PRN Constipation Metoprolol Tartrate 2.5 mg 09/21/20 15:00 09/27/20 12:59 Metoprolol Tartrate 5 Mg/5 Ml Inj IV 2.5 mg Q8HR [facility] Administration Multi-Ingred Cream/Lotion/Oil/Oint 1 applic 09/20/20 19:02 Mineral Oil/Petrolatum, White Ophth Oint 3.5 Gm OU Q4HR PRN Dry Eye(s) Naloxone HCl 0.1 mg 09/15/20 18:36 Naloxone 0.4 Mg/1 Ml Inj IV Q2MIN PRN Res Rate </= 8 or 02 SAT < 92% Nitroglycerin 0.5 inch 09/22/20 06:00 09/27/20 12:59 Nitroglycerin 2% Oint 1 Gm TP 0.5 inch BIDNTG [facility] Administration Protocol Ondansetron HCl 4 mg 09/15/20 22:09 Ondansetron 4 Mg/2 Ml Inj IV Q8H PRN Nausea And Vomiting Senna 8.8 mg 09/24/20 22:00 09/26/20 21:01 Sennosides Oral Liqd 8.8 Mg/5 Ml Oral Liqd PO Not Given QHS [facility] Sertraline HCl 25 mg 09/17/20 12:00 09/27/20 10:08 Sertraline 25 Mg Tab PO 25 mg QDAY [facility] Administration Simple Syrup 15 ml 09/22/20 08:06 Simple Syrup 15 Ml FEEDTUBE PRN PRN Hypoglycemia Simple Syrup 30 ml 09/22/20 08:06 Simple Syrup 15 Ml FEEDTUBE PRN PRN Hypoglycemia Sodium Bicarbonate 325 mg 09/22/20 08:06 Sodium Bicarbonate 325 Mg Tab FEEDTUBE PRN PRN For Clogged Feeding Tube Sodium Chloride 10 ml 09/16/20 10:00 09/27/20 10:08 Sodium Chloride 0.9% 10 Ml Flush Syringe IV 10 ml BID AMANDA Administration Sodium Chloride 10 ml 09/15/20 22:09 Sodium Chloride 0.9% 10 Ml Flush Syringe IV PRN PRN LINE FLUSH Sodium Chloride 5 ml 09/25/20 02:30 Sodium Chloride 0.9% 500 Ml Ivpb IV DIRECT PRN [employer] Tamsulosin HCl 0.4 mg 09/27/20 10:00 09/27/20 10:08 Tamsulosin 0.4 Mg Cap PO 0.4 mg QDAY AMANDA Administration Zinc Sulfate 220 mg 09/22/20 22:00 09/27/20 10:08 Zinc Sulfate 220 Mg Cap PO 220 mg BID AMANDA Administration Nutrition/Malnutrition Assess - Dietary Evaluation Nutrition/Malnutrition Findings: Nutrition Notes Start: 09/16/20 15:13 Freq: Status: Active Protocol: Document 09/26/20 11:52 (Rec: 09/26/20 11:54 [email or web address]) Nutrition Notes Initial or Follow up Reassessment Current Diagnosis Diabetes,Hypertension, Respiratory Failure Other Pertinent Diagnosis pneu, drug OD, COVID-19 Current Diet Vital AF 1.2 at 60 ml/hr Labs/Tests POC BG [phone] Phos 2.2 Pertinent Medications Sodium Phos Insulin Height 5 ft 6 in Weight 78.5 kg [place] Body Weight (kg) 59.09 BMI 27.9 Weight Status Appropriate Subjective/Other Information Insulin has been increased again this AM. Pt tolerating TF. Percent of energy/protein needs met: 100%/100% Burn Absent Trauma Absent Current % PO Negligible Minimum of two criteria No physical signs of malnutrition #1 Nutrition Diagnosis Inadequate oral intake Diagnosis Progress(for reassessment Continues documentation) Is patient on ventilator? Yes Is Patient Ambulatory and/or Out of Bed No REE-([facility]-confined to bed) 5223.777 Calculation Used for Recommendations [facility] Additional Notes Protein: (1.2-2g/kg) 94-157g Fluid: 1 ml/kcal Nutrition Intervention Change Diet Order: Continue TF Nutrition Support: Vital AF 1.2 at 60 ml/hr Flush 75 ml q4h or per MD Kcal 1,728 Protein (gm) 108 Fluid (mL) 1,168 Goal #1 Meet at least 75% of energy and protein needs via TF Anticipated Discharge Needs: Unable to determine at this time Follow-Up By: 09/30/20 Additional Comments F/u: BG and stable TF
[2020-09-27] MEDS: DOXAZOSIN 1 MG TAB PO SCH (21:44)
[2020-09-27] MEDS: SENNOSIDES ORAL LIQD 8.8 MG/5 ML ORAL LIQD PO SCH (21:45)
[2020-09-27] MEDS: fentaNYL DRIP Premix 2,000 MCG/100 ML BAG IV SCH (21:45)
[2020-09-28] MEDS: INSULIN LISPRO 100 UNIT/ML SUB-Q SCH ×4 (00:07→17:09)
[2020-09-28] MEDS: INSULIN REGULAR, HUMAN 100 UNITS/1 ML SUB-Q SCH ×4 (00:07→17:10)
--- NOTE | 2020-09-28 03:01 | XRay Report ---
CHEST 1 VIEW 09/28/2020 2:14 AM INDICATION / CLINICAL INFORMATION: hypoxia. COMPARISON: 09/27/2020 FINDINGS: SUPPORT DEVICES: Support lines and tubes again project in expected position HEART / MEDIASTINUM: No significant abnormality. LUNGS / PLEURA: Dense bilateral parenchymal disease, unchanged. No pneumothorax. ADDITIONAL FINDINGS: No significant additional findings. IMPRESSION: 1. Stable bilateral pneumonia Signer Name: Antonio Christina MD Signed: 09/28/2020 2:57 AM Workstation Name: [id number]
[2020-09-28] MEDS: HEPARIN 5,000 UNIT/1 ML VIAL SUB-Q SCH ×3 (05:49→22:04)
[2020-09-28] MEDS: METOPROLOL TARTRATE 5 MG/5 ML INJ IV SCH ×3 (05:49→22:05)
[2020-09-28] MEDS: LEVOTHYROXINE 125 MCG TAB PO SCH (05:49)
[2020-09-28 06:31] LABS: Hematocrit 37.1 % (30.3-42.9); Mean Corpuscular HGB Conc 32 % (30-34); Mean Corpuscular Volume 97 fl (79-97); Platelet Count 195 K/mm3 (140-440); Red Blood Count 3.84 M/mm3 (3.65-5.03); Red Cell Distribution Width 15.6 % (13.2-15.2)
[2020-09-28 06:55] LABS: Blood Urea Nitrogen 30 mg/dL (7-17); Calcium 8.4 mg/dL (8.4-10.2); Hemolysis Index 8
[2020-09-28 06:59] LABS: BUN/Creatinine Ratio 60
[2020-09-28] MEDS: FAMOTIDINE 20 MG TAB PO SCH ×2 (09:09→22:06)
[2020-09-28] MEDS: ASPIRIN 81 MG TAB CHEW PO SCH (09:09)
[2020-09-28] MEDS: NITROGLYCERIN 2% OINT 1 GM TP SCH ×2 (09:09→17:11)
[2020-09-28] MEDS: ASCORBIC ACID 500 MG TAB PO SCH ×2 (09:09→22:06)
[2020-09-28] MEDS: SERTRALINE 25 MG TAB PO SCH (09:10)
[2020-09-28] MEDS: CLOPIDOGREL 75 MG TAB PO SCH (09:10)
[2020-09-28] MEDS: CHOLECALCIFEROL (VIT D3) 5,000 UNIT TAB PO SCH (09:10)
[2020-09-28] MEDS: TAMSULOSIN 0.4 MG CAP PO SCH (09:19)
[2020-09-28] MEDS: ZINC SULFATE 220 MG CAP PO SCH ×2 (09:19→22:07)
[2020-09-28] MEDS: INSULIN GLARGINE 100 UNITS/ML SUB-Q SCH ×2 (09:20→22:08)
--- NOTE | 2020-09-28 11:12 | Progress Note ---
Assessment and Plan Cultures: Blood culture no growth so far Covid PUI positive A/P: 54-year-old female past medical history bipolar, hypothyroidism, hyperten aubree, diabetes now with: #Acute hypoxic respiratory failure: Remains on the ventilator 90%, PEEP 18. #Critical Covid pneumonia: PCR positive. Markers improving. #Drug overdose: With trazodone Recs: -Completed Remdesivir -Steroids per primary for 10 days -Completed 09/24/2020 -procalcitonin remains normal, no need for antibiotics. Cheryl Sutherland MD [facility] ([facility]) Office [phone] Subjective Date of service: 09/28/20 Principal diagnosis: Ac encephalopathy; CAP; Sepsis; COVID-19 infxn; Ac hyp oxemic resp failure Interval history: Remains intubated, FiO2 90%, PEEP of 18, no fever overnight. Objective - Exam Narrative Exam: Physical exam deferred to minimize COVID-19 transmission during pandemic. - Constitutional Vitals: Vital Signs Temp Pulse Resp BP Pulse Ox 98.6 F 106 H 18 125/55 92 09/28/20 08:00 09/28/20 09:09 09/28/20 09:00 09/28/20 09:09 09/28/20 09:00 Temperature -Last 24 Hours Temperature 98.6 F Temperature 99 F Temperature 99.6 F Temperature 100.2 F Temperature 100.9 F - Labs CBC & Chem 7: 09/28/20 05:44 09/28/20 05:44 Labs: Abnormal lab results 09/27/20 09/27/20 09/27/20 Range/Units 12:29 17:06 23:05 WBC (4.5-11.0) K/mm3 RDW (13.2-15.2) % POC ABG pCO2 (32.0-48.0) mmHg POC ABG pO2 (83-108) mmHg ABG Glucose (65-95) mg/dL Carboxyhemoglobin (0.5-1.5) Sodium (137-145) mmol/L Carbon Dioxide (22-30) mmol/L BUN (7-17) mg/dL Creatinine (0.6-1.2) mg/dL Glucose (65-100) mg/dL POC Glucose 310 H 277 H 261 H (70-105) mg/dL Arterial Blood Glucose (65-95) mg/dL 09/28/20 09/28/20 09/28/20 Range/Units 04:00 05:33 05:44 WBC 11.3 H (4.5-11.0) K/mm3 RDW 15.6 H (13.2-15.2) % POC ABG pCO2 63.5 H (32.0-48.0) mmHg POC ABG pO2 76.9 L (83-108) mmHg ABG Glucose 228 H (65-95) mg/dL Carboxyhemoglobin 0.4 L (0.5-1.5) Sodium (137-145) mmol/L Carbon Dioxide (22-30) mmol/L BUN (7-17) mg/dL Creatinine (0.6-1.2) mg/dL Glucose (65-100) mg/dL POC Glucose 206 H (70-105) mg/dL Arterial Blood Glucose 228 H (65-95) mg/dL 09/28/20 Range/Units 05:44 WBC (4.5-11.0) K/mm3 RDW (13.2-15.2) % POC ABG pCO2 (32.0-48.0) mmHg POC ABG pO2 (83-108) mmHg ABG Glucose (65-95) mg/dL Carboxyhemoglobin (0.5-1.5) Sodium 148 H (137-145) mmol/L Carbon Dioxide 38 H (22-30) mmol/L BUN 30 H (7-17) mg/dL Creatinine 0.5 L (0.6-1.2) mg/dL Glucose 192 H (65-100) mg/dL POC Glucose (70-105) mg/dL Arterial Blood Glucose (65-95) mg/dL
--- NOTE | 2020-09-28 13:05 | Progress Note ---
Assessment and Plan Acute toxic metabolic encephalopathy Severe sepsis Community acquired pneumonia coronavirus-19 infection Acute hypoxemic respiratory failure Hyponatremia at presentation Diabetes, poorly controlled Lactic acidosis Urinary tract infection Tobacco use disorder (care plan discussed at length with patients eldest son today and his questions were answered) - FiO2 reduced to 85% - stop daily CXR's - still await lower extremity dopplers (RN asked to call) - continue to wean supplemental oxygen for target O2 sat's > 92% acutely - continue care as below otherwise; - continue Daily SAT and SBT assessment as tolerated - VAP bundle addressed - continue lung protective strategies - continue bronchodilators with pulmonary hygiene per RT - wean per pulmonary driven protocols otherwise - continue accuchecks with glycemic control per SSI (While critically ill target blood glucose of 140-180 mg/dL; avoid hypoglycemia) - sedation prn for target RASS -1 to -2 - avoid nephrotoxins, renally dose all medications - continue to avoid benzodiazepine's, reduce the possibility of delirium - complete anti-infective's per ID rec's - prn analgesia per CPOT score - Maintenance of sleep-wake cycle, avoid delirium - continue enteral nutritional support at goal rate as tolerated - G.I. & VTE prophylaxis - PT/OT/ROM exercises - continue mobility protocols for pressure ulcer prophylaxis - Monitor hemodynamics closely - continue other care per attending / other consultants - discharge planning ongoing concurrently COVID SPECIFIC INTERVENTIONS - continue contact and airborne isolation - Remdesivir as per ID/Pulmonary developed protocols (ordered) - continue systemic steroids for severe COVID-19 infection - follow repeat COVID tests results - zinc and vitamin C supplementation - Monitor inflammatory markers per facility protocol - ferritin, D-dimer, CRP - therapeutic anticoagulation per system Protocol based on d-dimer and clinical considerations (not indicated) .... Re-evaluate in am & prn CONDITION: CRITICAL PROGNOSIS: GUARDED CODE STATUS: FULL CODE The high probability of a clinically significant, sudden or life-threatening deterioration of the [respiratory, cardiovascular & neurologic] system(s) required my full and direct attention, intervention and personal management. The aggregate critical care time was [32] minutes without overlap. Time includes spent on; [x] Data Review and interpretation [x] Patient assessment and monitoring of vital signs [x] Documentation [x] Medication orders and management Subjective Date of service: 09/28/20 Principal diagnosis: Ac encephalopathy; CAP; Sepsis; COVID-19 infxn; Ac hypoxemic resp failure Interval history: Patient is seen today for: Acute toxic metabolic encephalopathy; CAP; Severe sepsis; COVID-19 infection; Acute hypoxemic respiratory failure UTI; DM II Seen and examined at bedside; 24hour events reviewed; nursing and respiratory care staff consulted; no adverse overnight events reported to me; resting in bed; remains on MVS; FiO2 at 90% with minimal room to wean; dopplers negative for VTE; AMS is persistent Objective Vital Signs - 12hr 09/28/20 09/28/20 09/28/20 01:15 01:30 01:45 Temperature Pulse Rate 109 H 109 H 108 H Pulse Rate [ From Monitor] Respiratory 19 17 16 Rate Blood Pressure 109/62 120/65 113/55 O2 Sat by Pulse 93 94 93 Oximetry 09/28/20 09/28/20 09/28/20 02:00 02:15 02:30 Temperature Pulse Rate 109 H 108 H 113 H Pulse Rate [ From Monitor] Respiratory 18 17 15 Rate Blood Pressure 121/56 118/58 124/59 O2 Sat by Pulse 94 94 93 Oximetry 09/28/20 09/28/20 09/28/20 02:45 03:00 03:15 Temperature Pulse Rate 110 H 111 H 112 H Pulse Rate [ From Monitor] Respiratory 17 16 18 Rate Blood Pressure 117/60 119/62 128/61 O2 Sat by Pulse 93 94 95 Oximetry 09/28/20 09/28/20 09/28/20 03:16 03:30 03:45 Temperature Pulse Rate 97 H 111 H 110 H Pulse Rate [ From Monitor] Respiratory 17 17 Rate Blood Pressure 119/56 119/59 O2 Sat by Pulse 94 94 Oximetry 09/28/20 09/28/20 09/28/20 03:59 04:00 04:15 Temperature 99.6 F Pulse Rate 110 H 109 H Pulse Rate [ From Monitor] Respiratory 17 15 Rate Blood Pressure 120/58 117/57 O2 Sat by Pulse 95 95 Oximetry 09/28/20 09/28/20 09/28/20 04:29 04:30 04:45 Temperature Pulse Rate 110 H 111 H 109 H Pulse Rate [ From Monitor] Respiratory 17 17 Rate Blood Pressure 117/57 128/56 121/61 O2 Sat by Pulse 94 95 95 Oximetry 09/28/20 09/28/20 09/28/20 05:00 05:15 05:30 Temperature Pulse Rate 108 H 107 H 106 H Pulse Rate [ From Monitor] Respiratory 17 15 18 Rate Blood Pressure 116/63 119/67 126/59 O2 Sat by Pulse 95 94 94 Oximetry 09/28/20 09/28/20 09/28/20 05:45 06:01 06:15 Temperature Pulse Rate 108 H 89 91 H Pulse Rate [ From Monitor] Respiratory 19 18 18 Rate Blood Pressure 126/62 125/53 121/52 O2 Sat by Pulse 94 95 95 Oximetry 09/28/20 09/28/20 09/28/20 06:30 06:45 07:00 Temperature Pulse Rate 91 H 93 H 96 H Pulse Rate [ From Monitor] Respiratory 18 19 15 Rate Blood Pressure 106/55 111/52 110/46 O2 Sat by Pulse 94 94 94 Oximetry 09/28/20 09/28/20 09/28/20 07:15 07:30 07:45 Temperature Pulse Rate 96 H 98 H 98 H Pulse Rate [ From Monitor] Respiratory 16 17 18 Rate Blood Pressure 109/59 113/64 108/69 O2 Sat by Pulse 95 94 95 Oximetry 09/28/20 09/28/20 09/28/20 08:00 08:15 08:30 Temperature 98.6 F Pulse Rate 100 H 101 H 103 H Pulse Rate [ From Monitor] Respiratory 18 18 17 Rate Blood Pressure 121/61 116/57 123/58 O2 Sat by Pulse 95 94 94 Oximetry 09/28/20 09/28/20 09/28/20 08:33 08:45 09:00 Temperature Pulse Rate 103 H 102 H 106 H Pulse Rate [ From Monitor] Respiratory 17 18 Rate Blood Pressure 123/58 119/53 119/53 O2 Sat by Pulse 93 91 92 Oximetry 09/28/20 09/28/20 09/28/20 09:09 09:15 09:30 Temperature Pulse Rate 106 H 106 H Pulse Rate [ From Monitor] Respiratory 16 Rate Blood Pressure 125/55 125/64 124/64 O2 Sat by Pulse 93 93 Oximetry 09/28/20 09/28/20 09/28/20 09:45 10:00 10:15 Temperature Pulse Rate 104 H 106 H 108 H Pulse Rate [ From Monitor] Respiratory 15 18 16 Rate Blood Pressure 118/61 108/66 109/61 O2 Sat by Pulse 93 93 92 Oximetry 09/28/20 09/28/20 09/28/20 10:30 10:45 11:00 Temperature Pulse Rate 107 H 106 H 105 H Pulse Rate [ From Monitor] Respiratory 19 17 17 Rate Blood Pressure 111/66 114/59 112/64 O2 Sat by Pulse 92 92 93 Oximetry 09/28/20 09/28/20 09/28/20 11:15 11:30 11:45 Temperature 99 F Pulse Rate 105 H 104 H 105 H Pulse Rate [ From Monitor] Respiratory 17 18 17 Rate Blood Pressure 109/60 109/60 114/59 O2 Sat by Pulse 92 93 93 Oximetry 09/28/20 09/28/20 12:00 12:26 Temperature Pulse Rate 105 H Pulse Rate [ 111 H From Monitor] Respiratory 19 16 Rate Blood Pressure 116/61 O2 Sat by Pulse 93 92 Oximetry Constitutional: appears uncomfortable, other (middle aged female with mildly increased respiratory effort at rest on MVS) Eyes: non-icteric ENT: oropharynx moist, other (ETT 26 cm JOSHUA) Neck: supple, no lymphadenopathy Effort: mildly labored Ascultation: Bilateral: diminished breath sounds, rhonchi Percussion: Bilateral: not dull Cardiovascular: regular rate and rhythm Gastrointestinal: normoactive bowel sounds, soft, non-tender, non-distended (protuberant) Integumentary: normal Extremities: no cyanosis, no edema, pink and warm, pulses normal Neurologic: non-focal exam (grossly), pupils equal and round, motor strength normal and, unable to assess, other (sedated) Psychiatric: other (lethargic) CBC and BMP: 09/28/20 05:44 09/28/20 05:44 ABG, PT/INR, D-dimer: ABG ABG pH 7.417 (7.320-7.450) 09/28/20 04:00 POC ABG pCO2 63.5 mmHg (32.0-48.0) H 09/28/20 04:00 POC ABG pO2 76.9 mmHg (83-108) L 09/28/20 04:00 POC ABG HCO3 40.0 09/28/20 04:00 ABG O2 Saturation 96.5 (0-100) 09/28/20 04:00 PT/INR, D-dimer PT 20.0 Sec. (12.2-14.9) H 09/21/20 02:14 INR 1.65 (0.87-1.13) H 09/21/20 02:14 D-Dimer 1481.03 ng/mlDDU (0-234) H 09/25/20 09:43 Abnormal lab findings: Abnormal Labs 09/15/20 09/15/20 09/15/20 18:46 18:46 18:46 WBC Hgb 14.4 H MCH MCHC RDW Lymph % (Auto) Lymph # (Auto) Seg Neutrophils % Seg Neutrophils # PT INR APTT D-Dimer Heparin Anti-Xa Level ABG pH POC ABG pCO2 POC ABG pO2 ABG Oxyhemoglobin ABG Sodium ABG Potassium ABG Chloride ABG Glucose Carboxyhemoglobin Sodium 128 L Potassium 3.2 L Chloride 89.3 L Carbon Dioxide BUN Creatinine Glucose 388 H POC Glucose Lactic Acid Calcium 8.2 L Phosphorus Ferritin AST 69 H Ammonia Lactate Dehydrogenase Total Creatine Kinase CK-MB (CK-2) Troponin T C-Reactive Protein Albumin 3.6 L Triglycerides HDL Cholesterol TSH 34.670 H Free T4 Arterial Blood Glucose Arterial Blood Ionized Calcium Urine WBC (Auto) Salicylates Acetaminophen Coronavirus (PCR) 09/15/20 09/15/20 09/15/20 18:46 18:46 18:46 WBC Hgb MCH MCHC RDW Lymph % (Auto) Lymph # (Auto) Seg Neutrophils % Seg Neutrophils # PT INR APTT D-Dimer Heparin Anti-Xa Level ABG pH POC ABG pCO2 POC ABG pO2 ABG Oxyhemoglobin ABG Sodium ABG Potassium ABG Chloride ABG Glucose Carboxyhemoglobin Sodium Potassium Chloride Carbon Dioxide BUN Creatinine Glucose POC Glucose Lactic Acid Calcium Phosphorus Ferritin AST Ammonia 23.0 L Lactate Dehydrogenase Total Creatine Kinase CK-MB (CK-2) Troponin T C-Reactive Protein Albumin Triglycerides HDL Cholesterol TSH Free T4 Arterial Blood Glucose Arterial Blood Ionized Calcium Urine WBC (Auto) Salicylates < 0.3 L Acetaminophen 9.1 L Coronavirus (PCR) 09/15/20 09/15/20 09/15/20 19:38 19:40 19:43 WBC Hgb MCH MCHC RDW Lymph % (Auto) Lymph # (Auto) Seg Neutrophils % Seg Neutrophils # PT INR APTT D-Dimer Heparin Anti-Xa Level ABG pH POC ABG pCO2 POC ABG pO2 ABG Oxyhemoglobin ABG Sodium ABG Potassium ABG Chloride ABG Glucose Carboxyhemoglobin Sodium Potassium Chloride Carbon Dioxide BUN Creatinine Glucose POC Glucose 398 H Lactic Acid 2.70 H* Calcium Phosphorus Ferritin AST Ammonia Lactate Dehydrogenase Total Creatine Kinase CK-MB (CK-2) Troponin T C-Reactive Protein Albumin Triglycerides HDL Cholesterol TSH Free T4 0.10 L Arterial Blood Glucose Arterial Blood Ionized Calcium Urine WBC (Auto) Salicylates Acetaminophen Coronavirus (PCR) 09/15/20 09/15/20 09/16/20 20:02 Unknown 04:47 WBC Hgb 14.8 H MCH 33 H MCHC 36 H RDW Lymph % (Auto) 7.3 L Lymph # (Auto) 0.8 L Seg Neutrophils % 85.7 H Seg Neutrophils # 8.9 H PT INR APTT D-Dimer Heparin Anti-Xa Level ABG pH POC ABG pCO2 31.1 L POC ABG pO2 46.9 L ABG Oxyhemoglobin 82.8 L ABG Sodium 129.8 L ABG Potassium 3.1 L ABG Chloride ABG Glucose 374 H Carboxyhemoglobin Sodium Potassium Chloride Carbon Dioxide BUN Creatinine Glucose POC Glucose Lactic Acid Calcium Phosphorus Ferritin AST Ammonia Lactate Dehydrogenase Total Creatine Kinase CK-MB (CK-2) Troponin T C-Reactive Protein Albumin Triglycerides HDL Cholesterol TSH Free T4 Arterial Blood Glucose 374 H Arterial Blood Ionized Calcium Urine WBC (Auto) > 182.0 H Salicylates Acetaminophen Coronavirus (PCR) 09/16/20 09/16/20 09/16/20 04:47 07:20 08:00 WBC Hgb MCH MCHC RDW Lymph % (Auto) Lymph # (Auto) Seg Neutrophils % Seg Neutrophils # PT INR APTT D-Dimer Heparin Anti-Xa Level ABG pH POC ABG pCO2 POC ABG pO2 ABG Oxyhemoglobin ABG Sodium ABG Potassium ABG Chloride ABG Glucose Carboxyhemoglobin Sodium 135 L D Potassium Chloride 94.1 L Carbon Dioxide BUN Creatinine Glucose 418 H POC Glucose 403 H Lactic Acid Calcium 8.3 L Phosphorus Ferritin AST Ammonia Lactate Dehydrogenase Total Creatine Kinase CK-MB (CK-2) Troponin T C-Reactive Protein Albumin Triglycerides HDL Cholesterol TSH Free T4 Arterial Blood Glucose Arterial Blood Ionized Calcium Urine WBC (Auto) Salicylates Acetaminophen Coronavirus (PCR) Positive A 09/16/20 09/16/20 09/16/20 11:43 16:17 21:38 WBC Hgb MCH MCHC RDW Lymph % (Auto) Lymph # (Auto) Seg Neutrophils % Seg Neutrophils # PT INR APTT D-Dimer 702.65 H Heparin Anti-Xa Level ABG pH POC ABG pCO2 POC ABG pO2 ABG Oxyhemoglobin ABG Sodium ABG Potassium ABG Chloride ABG Glucose Carboxyhemoglobin Sodium Potassium Chloride Carbon Dioxide BUN Creatinine Glucose POC Glucose 417 H 353 H Lactic Acid Calcium Phosphorus Ferritin AST Ammonia Lactate Dehydrogenase Total Creatine Kinase CK-MB (CK-2) Troponin T C-Reactive Protein Albumin Triglycerides HDL Cholesterol TSH Free T4 Arterial Blood Glucose Arterial Blood Ionized Calcium Urine WBC (Auto) Salicylates Acetaminophen Coronavirus (PCR) 09/16/20 09/16/20 09/16/20 21:38 21:38 21:38 WBC Hgb MCH MCHC RDW Lymph % (Auto) Lymph # (Auto) Seg Neutrophils % Seg Neutrophils # PT INR APTT D-Dimer Heparin Anti-Xa Level ABG pH POC ABG pCO2 POC ABG pO2 ABG Oxyhemoglobin ABG Sodium ABG Potassium ABG Chloride ABG Glucose Carboxyhemoglobin Sodium Potassium Chloride Carbon Dioxide BUN Creatinine Glucose POC Glucose Lactic Acid Calcium Phosphorus Ferritin 1089.0 H AST Ammonia Lactate Dehydrogenase 722 H Total Creatine Kinase CK-MB (CK-2) Troponin T C-Reactive Protein 6.80 H Albumin Triglycerides HDL Cholesterol TSH Free T4 Arterial Blood Glucose Arterial Blood Ionized Calcium Urine WBC (Auto) Salicylates Acetaminophen 5.0 L Coronavirus (PCR) 09/16/20 09/16/20 09/17/20 21:38 22:24 04:59 WBC Hgb MCH MCHC RDW Lymph % (Auto) Lymph # (Auto) Seg Neutrophils % Seg Neutrophils # PT INR APTT D-Dimer Heparin Anti-Xa Level ABG pH POC ABG pCO2 POC ABG pO2 ABG Oxyhemoglobin ABG Sodium ABG Potassium ABG Chloride ABG Glucose Carboxyhemoglobin Sodium 134 L 135 L Potassium 3.5 L 3.0 L Chloride 95.1 L 97.2 L Carbon Dioxide BUN Creatinine Glucose 288 H 149 H POC Glucose 307 H Lactic Acid Calcium 8.2 L Phosphorus Ferritin AST 43 H 49 H Ammonia Lactate Dehydrogenase Total Creatine Kinase CK-MB (CK-2) Troponin T C-Reactive Protein Albumin 3.7 L 3.3 L Triglycerides HDL Cholesterol TSH Free T4 Arterial Blood Glucose Arterial Blood Ionized Calcium Urine WBC (Auto) Salicylates Acetaminophen Coronavirus (PCR) 09/17/20 09/17/20 09/17/20 12:25 16:57 21:30 WBC Hgb MCH MCHC RDW Lymph % (Auto) Lymph # (Auto) Seg Neutrophils % Seg Neutrophils # PT INR APTT D-Dimer Heparin Anti-Xa Level ABG pH POC ABG pCO2 POC ABG pO2 ABG Oxyhemoglobin ABG Sodium ABG Potassium ABG Chloride ABG Glucose Carboxyhemoglobin Sodium Potassium Chloride Carbon Dioxide BUN Creatinine Glucose POC Glucose 199 H 313 H 304 H Lactic Acid Calcium Phosphorus Ferritin AST Ammonia Lactate Dehydrogenase Total Creatine Kinase CK-MB (CK-2) Troponin T C-Reactive Protein Albumin Triglycerides HDL Cholesterol TSH Free T4 Arterial Blood Glucose Arterial Blood Ionized Calcium Urine WBC (Auto) Salicylates Acetaminophen Coronavirus (PCR) 09/18/20 09/18/20 09/18/20 08:01 08:05 12:36 WBC Hgb MCH MCHC RDW Lymph % (Auto) Lymph # (Auto) Seg Neutrophils % Seg Neutrophils # PT INR APTT D-Dimer Heparin Anti-Xa Level ABG pH POC ABG pCO2 POC ABG pO2 ABG Oxyhemoglobin ABG Sodium ABG Potassium ABG Chloride ABG Glucose Carboxyhemoglobin Sodium Potassium 3.1 L Chloride Carbon Dioxide BUN Creatinine Glucose 112 H POC Glucose 125 H 159 H Lactic Acid Calcium 8.3 L Phosphorus Ferritin AST 47 H Ammonia Lactate Dehydrogenase Total Creatine Kinase CK-MB (CK-2) Troponin T C-Reactive Protein Albumin 3.3 L Triglycerides HDL Cholesterol TSH Free T4 Arterial Blood Glucose Arterial Blood Ionized Calcium Urine WBC (Auto) Salicylates Acetaminophen Coronavirus (PCR) 09/18/20 09/18/20 09/19/20 16:57 21:40 06:10 WBC Hgb MCH MCHC RDW Lymph % (Auto) Lymph # (Auto) Seg Neutrophils % Seg Neutrophils # PT INR APTT D-Dimer Heparin Anti-Xa Level ABG pH POC ABG pCO2 POC ABG pO2 ABG Oxyhemoglobin ABG Sodium ABG Potassium ABG Chloride ABG Glucose Carboxyhemoglobin Sodium Potassium 2.8 L* Chloride 97.7 L Carbon Dioxide BUN Creatinine 0.4 L Glucose 146 H POC Glucose 180 H 225 H Lactic Acid Calcium 8.2 L Phosphorus Ferritin AST 45 H Ammonia Lactate Dehydrogenase Total Creatine Kinase CK-MB (CK-2) Troponin T C-Reactive Protein Albumin 3.5 L Triglycerides HDL Cholesterol TSH Free T4 Arterial Blood Glucose Arterial Blood Ionized Calcium Urine WBC (Auto) Salicylates Acetaminophen Coronavirus (PCR) 09/19/20 09/19/20 09/19/20 08:06 11:14 17:50 WBC Hgb MCH MCHC RDW Lymph % (Auto) Lymph # (Auto) Seg Neutrophils % Seg Neutrophils # PT INR APTT D-Dimer Heparin Anti-Xa Level ABG pH POC ABG pCO2 POC ABG pO2 ABG Oxyhemoglobin ABG Sodium ABG Potassium ABG Chloride ABG Glucose Carboxyhemoglobin Sodium Potassium Chloride Carbon Dioxide BUN Creatinine Glucose POC Glucose 175 H 210 H 291 H Lactic Acid Calcium Phosphorus Ferritin AST Ammonia Lactate Dehydrogenase Total Creatine Kinase CK-MB (CK-2) Troponin T C-Reactive Protein Albumin Triglycerides HDL Cholesterol TSH Free T4 Arterial Blood Glucose Arterial Blood Ionized Calcium Urine WBC (Auto) Salicylates Acetaminophen Coronavirus (PCR) 09/19/20 09/20/20 09/20/20 21:30 05:23 05:23 WBC Hgb MCH MCHC RDW Lymph % (Auto) Lymph # (Auto) Seg Neutrophils % Seg Neutrophils # PT INR APTT D-Dimer Heparin Anti-Xa Level ABG pH POC ABG pCO2 POC ABG pO2 ABG Oxyhemoglobin ABG Sodium ABG Potassium ABG Chloride ABG Glucose Carboxyhemoglobin Sodium 131 L Potassium 3.3 L D Chloride 95.4 L Carbon Dioxide 18 L BUN Creatinine 0.4 L Glucose 169 H POC Glucose 232 H Lactic Acid Calcium 8.3 L Phosphorus Ferritin 738.9 H AST Ammonia Lactate Dehydrogenase 882 H Total Creatine Kinase CK-MB (CK-2) Troponin T C-Reactive Protein 11.40 H Albumin Triglycerides HDL Cholesterol TSH Free T4 Arterial Blood Glucose Arterial Blood Ionized Calcium Urine WBC (Auto) Salicylates Acetaminophen Coronavirus (PCR) 09/20/20 09/20/20 09/20/20 05:23 06:50 10:46 WBC Hgb MCH MCHC RDW Lymph % (Auto) Lymph # (Auto) Seg Neutrophils % Seg Neutrophils # PT INR APTT D-Dimer 4940.20 H Heparin Anti-Xa Level ABG pH 7.289 L POC ABG pCO2 POC ABG pO2 50.1 L ABG Oxyhemoglobin 80.8 L ABG Sodium 130.8 L ABG Potassium ABG Chloride 97.0 L ABG Glucose 275 H Carboxyhemoglobin Sodium Potassium Chloride Carbon Dioxide BUN Creatinine Glucose POC Glucose 242 H Lactic Acid Calcium Phosphorus Ferritin AST Ammonia Lactate Dehydrogenase Total Creatine Kinase CK-MB (CK-2) Troponin T C-Reactive Protein Albumin Triglycerides HDL Cholesterol TSH Free T4 Arterial Blood Glucose 275 H Arterial Blood Ionized Calcium 4.2 L Urine WBC (Auto) Salicylates Acetaminophen Coronavirus (PCR) 09/20/20 09/20/20 09/20/20 11:58 16:30 16:41 WBC Hgb MCH MCHC RDW Lymph % (Auto) Lymph # (Auto) Seg Neutrophils % Seg Neutrophils # PT INR APTT D-Dimer Heparin Anti-Xa Level ABG pH POC ABG pCO2 27.8 L POC ABG pO2 79.7 L ABG Oxyhemoglobin ABG Sodium 131.0 L ABG Potassium ABG Chloride ABG Glucose 297 H Carboxyhemoglobin Sodium Potassium Chloride Carbon Dioxide BUN Creatinine Glucose POC Glucose 262 H 283 H Lactic Acid Calcium Phosphorus Ferritin AST Ammonia Lactate Dehydrogenase Total Creatine Kinase CK-MB (CK-2) Troponin T C-Reactive Protein Albumin Triglycerides HDL Cholesterol TSH Free T4 Arterial Blood Glucose 297 H Arterial Blood Ionized Calcium 4.3 L Urine WBC (Auto) Salicylates Acetaminophen Coronavirus (PCR) 09/20/20 09/20/20 09/21/20 17:26 21:29 00:46 WBC Hgb MCH MCHC RDW Lymph % (Auto) Lymph # (Auto) Seg Neutrophils % Seg Neutrophils # PT INR APTT D-Dimer Heparin Anti-Xa Level ABG pH POC ABG pCO2 POC ABG pO2 ABG Oxyhemoglobin ABG Sodium ABG Potassium ABG Chloride ABG Glucose Carboxyhemoglobin Sodium Potassium Chloride Carbon Dioxide BUN Creatinine Glucose POC Glucose 297 H 248 H Lactic Acid Calcium Phosphorus Ferritin AST Ammonia Lactate Dehydrogenase Total Creatine Kinase CK-MB (CK-2) Troponin T 0.444 H* C-Reactive Protein Albumin Triglycerides 156 H HDL Cholesterol 22 L TSH Free T4 Arterial Blood Glucose Arterial Blood Ionized Calcium Urine WBC (Auto) Salicylates Acetaminophen Coronavirus (PCR) 09/21/20 09/21/20 09/21/20 00:46 02:14 03:22 WBC Hgb MCH MCHC RDW Lymph % (Auto) Lymph # (Auto) Seg Neutrophils % Seg Neutrophils # PT 20.0 H INR 1.65 H APTT 38.2 H D-Dimer Heparin Anti-Xa Level ABG pH POC ABG pCO2 POC ABG pO2 70.3 L ABG Oxyhemoglobin 92.2 L ABG Sodium 134.2 L ABG Potassium ABG Chloride ABG Glucose 187 H Carboxyhemoglobin Sodium 134 L Potassium Chloride Carbon Dioxide 18 L BUN 23 H Creatinine Glucose 198 H POC Glucose Lactic Acid Calcium 6.7 L D Phosphorus Ferritin AST Ammonia Lactate Dehydrogenase Total Creatine Kinase CK-MB (CK-2) Troponin T C-Reactive Protein Albumin Triglycerides HDL Cholesterol TSH Free T4 Arterial Blood Glucose 187 H Arterial Blood Ionized Calcium 4.2 L Urine WBC (Auto) Salicylates Acetaminophen Coronavirus (PCR) 09/21/20 09/21/20 09/21/20 07:26 08:15 11:21 WBC Hgb MCH MCHC RDW Lymph % (Auto) Lymph # (Auto) Seg Neutrophils % Seg Neutrophils # PT INR APTT D-Dimer Heparin Anti-Xa Level 0.97 H ABG pH POC ABG pCO2 POC ABG pO2 ABG Oxyhemoglobin ABG Sodium ABG Potassium ABG Chloride ABG Glucose Carboxyhemoglobin Sodium Potassium Chloride Carbon Dioxide BUN Creatinine Glucose POC Glucose 157 H 153 H Lactic Acid Calcium Phosphorus Ferritin AST Ammonia Lactate Dehydrogenase Total Creatine Kinase CK-MB (CK-2) Troponin T C-Reactive Protein Albumin Triglycerides HDL Cholesterol TSH Free T4 Arterial Blood Glucose Arterial Blood Ionized Calcium Urine WBC (Auto) Salicylates Acetaminophen Coronavirus (PCR) 09/21/20 09/21/20 09/21/20 15:16 15:59 18:58 WBC Hgb MCH MCHC RDW Lymph % (Auto) Lymph # (Auto) Seg Neutrophils % Seg Neutrophils # PT INR APTT D-Dimer Heparin Anti-Xa Level 0.90 H ABG pH POC ABG pCO2 POC ABG pO2 ABG Oxyhemoglobin ABG Sodium ABG Potassium ABG Chloride ABG Glucose Carboxyhemoglobin Sodium Potassium Chloride Carbon Dioxide BUN Creatinine Glucose POC Glucose 192 H Lactic Acid Calcium Phosphorus Ferritin AST Ammonia Lactate Dehydrogenase Total Creatine Kinase CK-MB (CK-2) Troponin T C-Reactive Protein 8.40 H Albumin Triglycerides HDL Cholesterol TSH Free T4 Arterial Blood Glucose Arterial Blood Ionized Calcium Urine WBC (Auto) Salicylates Acetaminophen Coronavirus (PCR) 09/21/20 09/21/20 09/22/20 18:58 21:14 01:33 WBC Hgb MCH MCHC RDW Lymph % (Auto) Lymph # (Auto) Seg Neutrophils % Seg Neutrophils # PT INR APTT D-Dimer Heparin Anti-Xa Level 0.78 H ABG pH POC ABG pCO2 POC ABG pO2 ABG Oxyhemoglobin ABG Sodium ABG Potassium ABG Chloride ABG Glucose Carboxyhemoglobin Sodium Potassium Chloride Carbon Dioxide BUN Creatinine Glucose POC Glucose 172 H Lactic Acid Calcium Phosphorus Ferritin AST Ammonia Lactate Dehydrogenase Total Creatine Kinase 536 H CK-MB (CK-2) 17.8 H Troponin T 0.793 H* D C-Reactive Protein Albumin Triglycerides HDL Cholesterol TSH Free T4 Arterial Blood Glucose Arterial Blood Ionized Calcium Urine WBC (Auto) Salicylates Acetaminophen Coronavirus (PCR) 09/22/20 09/22/20 09/22/20 04:15 07:15 10:22 WBC Hgb MCH MCHC RDW Lymph % (Auto) Lymph # (Auto) Seg Neutrophils % Seg Neutrophils # PT INR APTT D-Dimer Heparin Anti-Xa Level ABG pH POC ABG pCO2 POC ABG pO2 ABG Oxyhemoglobin ABG Sodium 132.9 L ABG Potassium ABG Chloride ABG Glucose 155 H Carboxyhemoglobin Sodium Potassium Chloride Carbon Dioxide BUN Creatinine Glucose POC Glucose 159 H Lactic Acid Calcium Phosphorus Ferritin AST Ammonia Lactate Dehydrogenase Total Creatine Kinase 1159 H CK-MB (CK-2) 14.4 H Troponin T 0.501 H* D C-Reactive Protein Albumin Triglycerides HDL Cholesterol TSH Free T4 Arterial Blood Glucose 155 H Arterial Blood Ionized Calcium 4.3 L Urine WBC (Auto) Salicylates Acetaminophen Coronavirus (PCR) 09/22/20 09/22/20 09/22/20 11:34 16:35 17:44 WBC Hgb MCH MCHC RDW Lymph % (Auto) Lymph # (Auto) Seg Neutrophils % Seg Neutrophils # PT INR APTT D-Dimer Heparin Anti-Xa Level 0.15 L ABG pH POC ABG pCO2 POC ABG pO2 ABG Oxyhemoglobin ABG Sodium ABG Potassium ABG Chloride ABG Glucose Carboxyhemoglobin Sodium Potassium Chloride Carbon Dioxide BUN Creatinine Glucose POC Glucose 206 H 273 H Lactic Acid Calcium Phosphorus Ferritin AST Ammonia Lactate Dehydrogenase Total Creatine Kinase CK-MB (CK-2) Troponin T C-Reactive Protein Albumin Triglycerides HDL Cholesterol TSH Free T4 Arterial Blood Glucose Arterial Blood Ionized Calcium Urine WBC (Auto) Salicylates Acetaminophen Coronavirus (PCR) 09/23/20 09/23/20 09/23/20 00:32 04:00 05:11 WBC Hgb MCH MCHC RDW Lymph % (Auto) Lymph # (Auto) Seg Neutrophils % Seg Neutrophils # PT INR APTT D-Dimer Heparin Anti-Xa Level ABG pH POC ABG pCO2 POC ABG pO2 75.7 L ABG Oxyhemoglobin ABG Sodium 135.0 L ABG Potassium ABG Chloride ABG Glucose 237 H Carboxyhemoglobin Sodium Potassium Chloride Carbon Dioxide BUN Creatinine Glucose POC Glucose 287 H 210 H Lactic Acid Calcium Phosphorus Ferritin AST Ammonia Lactate Dehydrogenase Total Creatine Kinase CK-MB (CK-2) Troponin T C-Reactive Protein Albumin Triglycerides HDL Cholesterol TSH Free T4 Arterial Blood Glucose 237 H Arterial Blood Ionized Calcium 4.5 L Urine WBC (Auto) Salicylates Acetaminophen Coronavirus (PCR) 09/23/20 09/23/20 09/23/20 08:02 10:03 10:03 WBC 13.8 H Hgb MCH MCHC RDW Lymph % (Auto) Lymph # (Auto) Seg Neutrophils % Seg Neutrophils # PT INR APTT D-Dimer 2573.89 H Heparin Anti-Xa Level ABG pH POC ABG pCO2 POC ABG pO2 ABG Oxyhemoglobin ABG Sodium ABG Potassium ABG Chloride ABG Glucose Carboxyhemoglobin Sodium Potassium Chloride Carbon Dioxide BUN Creatinine Glucose POC Glucose 268 H Lactic Acid Calcium Phosphorus Ferritin AST Ammonia Lactate Dehydrogenase Total Creatine Kinase CK-MB (CK-2) Troponin T C-Reactive Protein Albumin Triglycerides HDL Cholesterol TSH Free T4 Arterial Blood Glucose Arterial Blood Ionized Calcium Urine WBC (Auto) Salicylates Acetaminophen Coronavirus (PCR) 09/23/20 09/23/20 09/23/20 10:03 10:03 10:03 WBC Hgb MCH MCHC RDW Lymph % (Auto) Lymph # (Auto) Seg Neutrophils % Seg Neutrophils # PT INR APTT D-Dimer Heparin Anti-Xa Level 0.12 L ABG pH POC ABG pCO2 POC ABG pO2 ABG Oxyhemoglobin ABG Sodium ABG Potassium ABG Chloride ABG Glucose Carboxyhemoglobin Sodium Potassium Chloride Carbon Dioxide BUN 26 H Creatinine Glucose 271 H POC Glucose Lactic Acid Calcium 8.2 L D Phosphorus Ferritin 1084.0 H AST Ammonia Lactate Dehydrogenase 1592 H Total Creatine Kinase CK-MB (CK-2) Troponin T C-Reactive Protein 9.10 H Albumin Triglycerides HDL Cholesterol TSH Free T4 Arterial Blood Glucose Arterial Blood Ionized Calcium Urine WBC (Auto) Salicylates Acetaminophen Coronavirus (PCR) 09/23/20 09/23/20 09/23/20 12:17 18:30 20:01 WBC Hgb MCH MCHC RDW Lymph % (Auto) Lymph # (Auto) Seg Neutrophils % Seg Neutrophils # PT INR APTT D-Dimer Heparin Anti-Xa Level 0.15 L ABG pH POC ABG pCO2 POC ABG pO2 ABG Oxyhemoglobin ABG Sodium ABG Potassium ABG Chloride ABG Glucose Carboxyhemoglobin Sodium Potassium Chloride Carbon Dioxide BUN Creatinine Glucose POC Glucose 282 H 392 H Lactic Acid Calcium Phosphorus Ferritin AST Ammonia Lactate Dehydrogenase Total Creatine Kinase CK-MB (CK-2) Troponin T C-Reactive Protein Albumin Triglycerides HDL Cholesterol TSH Free T4 Arterial Blood Glucose Arterial Blood Ionized Calcium Urine WBC (Auto) Salicylates Acetaminophen Coronavirus (PCR) 09/23/20 09/23/20 09/24/20 21:08 23:58 04:00 WBC Hgb MCH MCHC RDW Lymph % (Auto) Lymph # (Auto) Seg Neutrophils % Seg Neutrophils # PT INR APTT D-Dimer Heparin Anti-Xa Level ABG pH POC ABG pCO2 55.6 H POC ABG pO2 75.6 L ABG Oxyhemoglobin ABG Sodium 135.9 L ABG Potassium ABG Chloride ABG Glucose 330 H Carboxyhemoglobin Sodium Potassium Chloride Carbon Dioxide BUN Creatinine Glucose POC Glucose 373 H 391 H Lactic Acid Calcium Phosphorus Ferritin AST Ammonia Lactate Dehydrogenase Total Creatine Kinase CK-MB (CK-2) Troponin T C-Reactive Protein Albumin Triglycerides HDL Cholesterol TSH Free T4 Arterial Blood Glucose 330 H Arterial Blood Ionized Calcium 4.4 L Urine WBC (Auto) Salicylates Acetaminophen Coronavirus (PCR) 09/24/20 09/24/20 09/24/20 04:30 04:30 05:04 WBC 12.4 H Hgb MCH MCHC RDW Lymph % (Auto) Lymph # (Auto) Seg Neutrophils % Seg Neutrophils # PT INR APTT D-Dimer Heparin Anti-Xa Level ABG pH POC ABG pCO2 POC ABG pO2 ABG Oxyhemoglobin ABG Sodium ABG Potassium ABG Chloride ABG Glucose Carboxyhemoglobin Sodium Potassium Chloride Carbon Dioxide BUN 25 H Creatinine Glucose 337 H POC Glucose 316 H Lactic Acid Calcium 8.0 L Phosphorus Ferritin AST Ammonia Lactate Dehydrogenase Total Creatine Kinase CK-MB (CK-2) Troponin T C-Reactive Protein Albumin Triglycerides HDL Cholesterol TSH Free T4 Arterial Blood Glucose Arterial Blood Ionized Calcium Urine WBC (Auto) Salicylates Acetaminophen Coronavirus (PCR) 09/24/20 09/24/20 09/24/20 11:41 17:32 23:41 WBC Hgb MCH MCHC RDW Lymph % (Auto) Lymph # (Auto) Seg Neutrophils % Seg Neutrophils # PT INR APTT D-Dimer Heparin Anti-Xa Level ABG pH POC ABG pCO2 POC ABG pO2 ABG Oxyhemoglobin ABG Sodium ABG Potassium ABG Chloride ABG Glucose Carboxyhemoglobin Sodium Potassium Chloride Carbon Dioxide BUN Creatinine Glucose POC Glucose 240 H 271 H 349 H Lactic Acid Calcium Phosphorus Ferritin AST Ammonia Lactate Dehydrogenase Total Creatine Kinase CK-MB (CK-2) Troponin T C-Reactive Protein Albumin Triglycerides HDL Cholesterol TSH Free T4 Arterial Blood Glucose Arterial Blood Ionized Calcium Urine WBC (Auto) Salicylates Acetaminophen Coronavirus (PCR) 09/25/20 09/25/20 09/25/20 05:11 09:43 09:43 WBC Hgb MCH MCHC RDW 15.4 H Lymph % (Auto) Lymph # (Auto) Seg Neutrophils % Seg Neutrophils # PT INR APTT D-Dimer 1481.03 H Heparin Anti-Xa Level ABG pH POC ABG pCO2 POC ABG pO2 ABG Oxyhemoglobin ABG Sodium ABG Potassium ABG Chloride ABG Glucose Carboxyhemoglobin Sodium Potassium Chloride Carbon Dioxide BUN Creatinine Glucose POC Glucose 319 H Lactic Acid Calcium Phosphorus Ferritin AST Ammonia Lactate Dehydrogenase Total Creatine Kinase CK-MB (CK-2) Troponin T C-Reactive Protein Albumin Triglycerides HDL Cholesterol TSH Free T4 Arterial Blood Glucose Arterial Blood Ionized Calcium Urine WBC (Auto) Salicylates Acetaminophen Coronavirus (PCR) 09/25/20 09/25/20 09/25/20 09:43 09:43 09:43 WBC Hgb MCH MCHC RDW Lymph % (Auto) Lymph # (Auto) Seg Neutrophils % Seg Neutrophils # PT INR APTT D-Dimer Heparin Anti-Xa Level 0.10 L ABG pH POC ABG pCO2 POC ABG pO2 ABG Oxyhemoglobin ABG Sodium ABG Potassium ABG Chloride ABG Glucose Carboxyhemoglobin Sodium Potassium Chloride Carbon Dioxide 33 H BUN 26 H Creatinine Glucose 306 H POC Glucose Lactic Acid Calcium 8.1 L Phosphorus Ferritin 670.5 H AST Ammonia Lactate Dehydrogenase 948 H Total Creatine Kinase CK-MB (CK-2) Troponin T C-Reactive Protein 6.70 H Albumin Triglycerides HDL Cholesterol TSH Free T4 Arterial Blood Glucose Arterial Blood Ionized Calcium Urine WBC (Auto) Salicylates Acetaminophen Coronavirus (PCR) 09/25/20 09/25/20 09/25/20 11:52 13:38 17:37 WBC Hgb MCH MCHC RDW Lymph % (Auto) Lymph # (Auto) Seg Neutrophils % Seg Neutrophils # PT INR APTT D-Dimer Heparin Anti-Xa Level ABG pH POC ABG pCO2 60.9 H POC ABG pO2 59.7 L ABG Oxyhemoglobin 90.2 L ABG Sodium ABG Potassium ABG Chloride ABG Glucose 336 H Carboxyhemoglobin Sodium Potassium Chloride Carbon Dioxide BUN Creatinine Glucose POC Glucose 313 H 379 H Lactic Acid Calcium Phosphorus Ferritin AST Ammonia Lactate Dehydrogenase Total Creatine Kinase CK-MB (CK-2) Troponin T C-Reactive Protein Albumin Triglycerides HDL Cholesterol TSH Free T4 Arterial Blood Glucose 336 H Arterial Blood Ionized Calcium 4.4 L Urine WBC (Auto) Salicylates Acetaminophen Coronavirus (PCR) 09/25/20 09/25/20 09/26/20 20:52 23:23 00:32 WBC Hgb MCH MCHC RDW Lymph % (Auto) Lymph # (Auto) Seg Neutrophils % Seg Neutrophils # PT INR APTT D-Dimer Heparin Anti-Xa Level 0.10 L ABG pH POC ABG pCO2 POC ABG pO2 ABG Oxyhemoglobin ABG Sodium ABG Potassium ABG Chloride ABG Glucose Carboxyhemoglobin Sodium Potassium Chloride Carbon Dioxide BUN Creatinine Glucose POC Glucose 387 H 269 H Lactic Acid Calcium Phosphorus Ferritin AST Ammonia Lactate Dehydrogenase Total Creatine Kinase CK-MB (CK-2) Troponin T C-Reactive Protein Albumin Triglycerides HDL Cholesterol TSH Free T4 Arterial Blood Glucose Arterial Blood Ionized Calcium Urine WBC (Auto) Salicylates Acetaminophen Coronavirus (PCR) 09/26/20 09/26/20 09/26/20 02:23 02:23 03:53 WBC 11.4 H Hgb MCH MCHC RDW Lymph % (Auto) Lymph # (Auto) Seg Neutrophils % Seg Neutrophils # PT INR APTT D-Dimer Heparin Anti-Xa Level ABG pH POC ABG pCO2 58.5 H POC ABG pO2 69.5 L ABG Oxyhemoglobin 93.5 L ABG Sodium ABG Potassium ABG Chloride ABG Glucose 272 H Carboxyhemoglobin Sodium Potassium Chloride Carbon Dioxide 33 H BUN 27 H Creatinine Glucose 316 H POC Glucose Lactic Acid Calcium 7.9 L Phosphorus 2.20 L Ferritin AST Ammonia Lactate Dehydrogenase Total Creatine Kinase CK-MB (CK-2) Troponin T C-Reactive Protein Albumin Triglycerides HDL Cholesterol TSH Free T4 Arterial Blood Glucose 272 H Arterial Blood Ionized Calcium 4.3 L Urine WBC (Auto) Salicylates Acetaminophen Coronavirus (PCR) 09/26/20 09/26/20 09/26/20 05:43 05:43 11:57 WBC Hgb MCH MCHC RDW Lymph % (Auto) Lymph # (Auto) Seg Neutrophils % Seg Neutrophils # PT INR APTT D-Dimer Heparin Anti-Xa Level 0.15 L ABG pH POC ABG pCO2 POC ABG pO2 ABG Oxyhemoglobin ABG Sodium ABG Potassium ABG Chloride ABG Glucose Carboxyhemoglobin Sodium Potassium Chloride Carbon Dioxide BUN Creatinine Glucose POC Glucose 277 H 345 H Lactic Acid Calcium Phosphorus Ferritin AST Ammonia Lactate Dehydrogenase Total Creatine Kinase CK-MB (CK-2) Troponin T C-Reactive Protein Albumin Triglycerides HDL Cholesterol TSH Free T4 Arterial Blood Glucose Arterial Blood Ionized Calcium Urine WBC (Auto) Salicylates Acetaminophen Coronavirus (PCR) 09/26/20 09/26/20 09/26/20 13:17 17:53 23:45 WBC Hgb MCH MCHC RDW Lymph % (Auto) Lymph # (Auto) Seg Neutrophils % Seg Neutrophils # PT INR APTT D-Dimer Heparin Anti-Xa Level ABG pH POC ABG pCO2 POC ABG pO2 ABG Oxyhemoglobin ABG Sodium ABG Potassium ABG Chloride ABG Glucose Carboxyhemoglobin Sodium Potassium Chloride Carbon Dioxide BUN Creatinine Glucose POC Glucose 292 H 331 H Lactic Acid 2.50 H* Calcium Phosphorus Ferritin AST Ammonia Lactate Dehydrogenase Total Creatine Kinase CK-MB (CK-2) Troponin T C-Reactive Protein Albumin Triglycerides HDL Cholesterol TSH Free T4 Arterial Blood Glucose Arterial Blood Ionized Calcium Urine WBC (Auto) Salicylates Acetaminophen Coronavirus (PCR) 09/27/20 09/27/20 09/27/20 03:03 04:47 04:47 WBC 11.8 H Hgb MCH 33 H MCHC RDW 15.3 H Lymph % (Auto) Lymph # (Auto) Seg Neutrophils % Seg Neutrophils # PT INR APTT D-Dimer Heparin Anti-Xa Level ABG pH POC ABG pCO2 61.3 H POC ABG pO2 80.6 L ABG Oxyhemoglobin ABG Sodium ABG Potassium 4.6 H ABG Chloride ABG Glucose 358 H Carboxyhemoglobin Sodium Potassium Chloride Carbon Dioxide 34 H BUN 31 H Creatinine Glucose 330 H POC Glucose Lactic Acid Calcium 8.0 L Phosphorus Ferritin AST Ammonia Lactate Dehydrogenase Total Creatine Kinase CK-MB (CK-2) Troponin T C-Reactive Protein Albumin Triglycerides HDL Cholesterol TSH Free T4 Arterial Blood Glucose 358 H Arterial Blood Ionized Calcium 4.2 L Urine WBC (Auto) Salicylates Acetaminophen Coronavirus (PCR) 09/27/20 09/27/20 09/27/20 04:47 05:15 12:29 WBC Hgb MCH MCHC RDW Lymph % (Auto) Lymph # (Auto) Seg Neutrophils % Seg Neutrophils # PT INR APTT D-Dimer Heparin Anti-Xa Level < 0.10 L ABG pH POC ABG pCO2 POC ABG pO2 ABG Oxyhemoglobin ABG Sodium ABG Potassium ABG Chloride ABG Glucose Carboxyhemoglobin Sodium Potassium Chloride Carbon Dioxide BUN Creatinine Glucose POC Glucose 303 H 310 H Lactic Acid Calcium Phosphorus Ferritin AST Ammonia Lactate Dehydrogenase Total Creatine Kinase CK-MB (CK-2) Troponin T C-Reactive Protein Albumin Triglycerides HDL Cholesterol TSH Free T4 Arterial Blood Glucose Arterial Blood Ionized Calcium Urine WBC (Auto) Salicylates Acetaminophen Coronavirus (PCR) 09/27/20 09/27/20 09/28/20 17:06 23:05 04:00 WBC Hgb MCH MCHC RDW Lymph % (Auto) Lymph # (Auto) Seg Neutrophils % Seg Neutrophils # PT INR APTT D-Dimer Heparin Anti-Xa Level ABG pH POC ABG pCO2 63.5 H POC ABG pO2 76.9 L ABG Oxyhemoglobin ABG Sodium ABG Potassium ABG Chloride ABG Glucose 228 H Carboxyhemoglobin 0.4 L Sodium Potassium Chloride Carbon Dioxide BUN Creatinine Glucose POC Glucose 277 H 261 H Lactic Acid Calcium Phosphorus Ferritin AST Ammonia Lactate Dehydrogenase Total Creatine Kinase CK-MB (CK-2) Troponin T C-Reactive Protein Albumin Triglycerides HDL Cholesterol TSH Free T4 Arterial Blood Glucose 228 H Arterial Blood Ionized Calcium Urine WBC (Auto) Salicylates Acetaminophen Coronavirus (PCR) 09/28/20 09/28/20 09/28/20 05:33 05:44 05:44 WBC 11.3 H Hgb MCH MCHC RDW 15.6 H Lymph % (Auto) Lymph # (Auto) Seg Neutrophils % Seg Neutrophils # PT INR APTT D-Dimer Heparin Anti-Xa Level ABG pH POC ABG pCO2 POC ABG pO2 ABG Oxyhemoglobin ABG Sodium ABG Potassium ABG Chloride ABG Glucose Carboxyhemoglobin Sodium 148 H Potassium Chloride Carbon Dioxide 38 H BUN 30 H Creatinine 0.5 L Glucose 192 H POC Glucose 206 H Lactic Acid Calcium Phosphorus Ferritin AST Ammonia Lactate Dehydrogenase Total Creatine Kinase CK-MB (CK-2) Troponin T C-Reactive Protein Albumin Triglycerides HDL Cholesterol TSH Free T4 Arterial Blood Glucose Arterial Blood Ionized Calcium Urine WBC (Auto) Salicylates Acetaminophen Coronavirus (PCR) 09/28/20 11:30 WBC Hgb MCH MCHC RDW Lymph % (Auto) Lymph # (Auto) Seg Neutrophils % Seg Neutrophils # PT INR APTT D-Dimer Heparin Anti-Xa Level ABG pH POC ABG pCO2 POC ABG pO2 ABG Oxyhemoglobin ABG Sodium ABG Potassium ABG Chloride ABG Glucose Carboxyhemoglobin Sodium Potassium Chloride Carbon Dioxide BUN Creatinine Glucose POC Glucose 235 H Lactic Acid Calcium Phosphorus Ferritin AST Ammonia Lactate Dehydrogenase Total Creatine Kinase CK-MB (CK-2) Troponin T C-Reactive Protein Albumin Triglycerides HDL Cholesterol TSH Free T4 Arterial Blood Glucose Arterial Blood Ionized Calcium Urine WBC (Auto) Salicylates Acetaminophen Coronavirus (PCR) Chest x-ray: other (persistent infiltrates) Allied health notes reviewed: nursing
[2020-09-28 14:56] LABS: C-Reactive Protein 0.6 mg/dL (0.00-1.30)
--- NOTE | 2020-09-28 16:21 | Progress Note ---
Assessment and Plan Assessment and plan: This is a 54-year-old female with bipolar disorder, hypothyroidism, hypertension, diabetes mellitus admitted for acute hypoxic respiratory failure, COVID-19 pneumonia, NSTEMI Neuro: Acute metabolic encephalopathy, drug ingestion, h/o bipolar -Psych consult, appreciate recommendations -Zoloft -intact cough/gag, PERRL -Avoid delirium -Sedated with fentanyl, goal RASS 0 to -1 Cardiology: SR, NSTEMI, h/o HTN -Cardiology consulted, appreciate recommendations -Echocardiogram shows diastolic function normal, LVEF 50 to 55%, mild to moderate concentric LVH, mild AR, mild MR, trace TR, RVSP normal at 17 mmHg -Aspirin 162, Plavix 75, beta-genny, as needed nitroglycerin -Blood pressure monitoring per protocol -Heparin drip Respiratory: Acute hypoxic respiratory failure -On mechanical ventilation, wean as tolerated -CCM consulted, appreciate recommendations -VAP bundle -SPO2 monitoring -Serial CXR and ABGs -Current vent settings: AC/PRVC TV 450, R 18, PEEP 18, 85% fiO2 -see rt notes for titration -09/28 CXR and ABG reviewed GI: NAD -Nutrition consulted, appreciate recommendations -Tube feedings -Accu-Cheks every 6 -SSI -PPI -BM: [place] : Urinary retention -purwick -Patient is on doxazosin, flomax -prn bladder scan Endo: Hypothyroidism, h/o DM -SSI -Scheduled lispro -Accu-Cheks every 6 -Synthroid -Avoid hypoglycemia -Long-acting insulin, titrate as needed Heme: Leukocytosis -Trend CBC -Transfuse for hemoglobin less than 7 -Systemic anticoagulation with heparin drip ID: COVID-19 pneumonia, UTI, sepsis, lactic acidosis -COVID-19 PCR + 09/16/2020 -Infectious disease consulted, appreciate recommendations -S/p remdesivir 5 days -Dexamethasone -09/24 Actemra -ABX completed -Contact/droplet precautions -Trend COVID-19 inflammatory markers The high probability of a clinically significant, sudden or life threatening deterioration of the [cardiorespiratory] system(s) required my full and direct attention, intervention and personal management. The aggregate critical care time was [60] minutes. This time is in addition to time spent performing reported procedures but includes the following: [x] Data Review and interpretation [x] Patient assessment and monitoring of vital signs [x] Documentation [x] Medication orders and management Disposition Plan: icu Total Time Spent with Patient (Minutes): 60 History Interval history: This is a 54-year-old female with bipolar disorder, hypothyroidism, hypertension, diabetes mellitus who presents to the emergency department via EMS after having being found on the floor with a generalized weakness vs syncope as the patient is in the case that she took some trazodone in order to get to sleep but cannot recall how many tablets she took her dosage. The final regimen patient was confused but arousable and responds to questions during her course of stay. In the emergency department she was found to be hypoxic upon arrival with O2 sat of 82% on room air and was placed on supplemental oxygen. Work-up in the emergency department included a CXR which revealed patchy parenchymal opacities, hyponatremia of 128, hypokalemia 3.2, elevated blood glucose of 388, lactic acidosis 2.7, elevated TSH at 34.67 and free T4 at 0.1. UA revealed UTI and tox screen revealed Tylenol level of 9.1. Patient was admitted to the hospital service with acute hypoxic respiratory failure secondary to pneumonia, hypokalemia, drug overdose and hyperglycemia. She was admitted as a COVID-19 PUI and infectious disease was also consulted. Psych was consulted for history of bipolar and possible drug overdose. Upon arrival to the ICU for progressive shortness of breath and progressively worsening CXR patient was noted to have an NSTEMI and cardiology was consulted. 09/16/2020: COVID-pneumonia. Coronavirus PCR positive, Patient on 5 L nasal cannula oxygen 09/17/2020: Covid pneumonia, Covid PCR positive yesterday. Patient on 5 L nasal cannula oxygen. ID consult appreciated, On remdesivir 09/18/2020: Still on 5 L nasal cannula oxygen, Saturations dropped to 88% on 3 L nasal cannula oxygen, Trying to wean but not possible, Continue remdesivir 09/20/2020: Patient is severely hypoxemic, requiring very high flow oxygen And intermittent BiPAP, x-ray chest worsening infiltrates. Patient is severely hypoxemic even on BiPAP, citrix engineer recommend. Transfer to ICU for close observation and possible intubation if no improvement . I called NOK patient's mother and discussed in detail patient's deterioration, severe hypoxemia, Transfer to ICU, possible intubation if needed she informed me that. Her recently, With Covid infection, and she herself is Covid positive. 09/21/2020; patient was intubated yesterday, On ventilatory support, Non-ST elevation HI, check echocardiogram, Cardiology evaluation noted and appreciated. Discussed with 09/22: Patient's PEEP was increased to 14. [facility], will order to remove her Laura catheter today and IV heparin was changed to IV Lovenox 09/23: Continue current medical management for NSTEMI, advance O ETT by 1 cm, increase PEEP and reduced FiO2 per [facility]. Patient had retention today and Laura will be replaced with 30 straight cath and patient will be started on Flomax. 09/24: Patient received Actemra today, [facility] added doxazosin, we increase Lantus and SSI today for tighter glycemic control. 09/25: No acute events reported overnight. Increase in lantus. Vent changes made in accordance to ABG. 09/26: No acute overnight events reported. increased lantus again 09/27: family updated by [facility], BLE dopplars pending, increased lantus. 09/28: [facility] reduced FiO2 to 85%, avoiding bilateral lower extremity Doppler ultrasounds. Patient remains sedated on fentanyl. Hospitalist Physical - Constitutional Vitals: Temp Pulse Resp BP Pulse Ox 99 F 113 H 16 124/65 93 09/28/20 11:30 09/28/20 15:38 09/28/20 14:00 09/28/20 15:38 09/28/20 15:38 General appearance: Present: no acute distress, well-nourished, other (Intubated on vent, sedated) - EENT ENT: clear oral mucosa, dentition normal - Neck Neck: Present: normal ROM - Respiratory Respiratory effort: normal Respiratory: bilateral: diminished - Cardiovascular Rhythm: regular Heart Sounds: Present: S1 & S2. Absent: systolic murmur, diastolic murmur - Extremities Extremities: no ischemia, pulses intact, pulses symmetrical, No edema, normal temperature, normal color Peripheral Pulses: within normal limits - Abdominal General gastrointestinal: soft, non-tender, non-distended, normal bowel sounds - Integumentary Integumentary: Present: warm, dry - Psychiatric Psychiatric: other (sedated) - Neurologic Neurologic: other (sedated, intact cough/gag) HEART Score - HEART Score Troponin: Troponin T 0.501 ng/mL (0.00-0.029) H* D 09/22/20 10:22 Results - Labs CBC & Chem 7: 09/28/20 05:44 09/28/20 05:44 Labs: Laboratory Last Values WBC 11.3 K/mm3 (4.5-11.0) H 09/28/20 05:44 RBC 3.84 M/mm3 (3.65-5.03) 09/28/20 05:44 Hgb 12.0 gm/dl (10.1-14.3) 09/28/20 05:44 Hct 37.1 % (30.3-42.9) 09/28/20 05:44 MCV 97 fl (79-97) 09/28/20 05:44 MCH 31 pg (28-32) 09/28/20 05:44 MCHC 32 % (30-34) 09/28/20 05:44 RDW 15.6 % (13.2-15.2) H 09/28/20 05:44 Plt Count 195 K/mm3 (140-440) 09/28/20 05:44 Lymph % (Auto) 7.3 % (13.4-35.0) L 09/16/20 04:47 [place] % (Auto) 6.6 % (0.0-7.3) 09/16/20 04:47 Eos % (Auto) 0.0 % (0.0-4.3) 09/16/20 04:47 Baso % (Auto) 0.4 % (0.0-1.8) 09/16/20 04:47 Lymph # (Auto) 0.8 K/mm3 (1.2-5.4) L 09/16/20 04:47 [place] # (Auto) 0.7 K/mm3 (0.0-0.8) 09/16/20 04:47 Eos # (Auto) 0.0 K/mm3 (0.0-0.4) 09/16/20 04:47 Baso # (Auto) 0.0 K/mm3 (0.0-0.1) 09/16/20 04:47 Seg Neutrophils % 85.7 % (40.0-70.0) H 09/16/20 04:47 Seg Neutrophils # 8.9 K/mm3 (1.8-7.7) H 09/16/20 04:47 PT 20.0 Sec. (12.2-14.9) H 09/21/20 02:14 INR 1.65 (0.87-1.13) H 09/21/20 02:14 APTT 38.2 Sec. (24.2-36.6) H 09/21/20 02:14 D-Dimer 4603.21 ng/mlDDU (0-234) H 09/28/20 14:10 Heparin Anti-Xa Level < 0.10 U.I./ml (0.3-0.7) L 09/27/20 04:47 ABG pH 7.417 (7.320-7.450) 09/28/20 04:00 POC ABG pCO2 63.5 mmHg (32.0-48.0) H 09/28/20 04:00 POC ABG pO2 76.9 mmHg (83-108) L 09/28/20 04:00 POC ABG HCO3 40.0 09/28/20 04:00 ABG O2 Saturation 96.5 (0-100) 09/28/20 04:00 POC ABG Base Excess 13.0 09/28/20 04:00 ABG Hemoglobin 12.1 (12.0-17.5) 09/28/20 04:00 ABG Oxyhemoglobin 95.8 (94-98) 09/28/20 04:00 ABG Methemoglobin 0.3 (0.0-1.5) 09/28/20 04:00 ABG Sodium 143.9 mmol/L (136.0-145.0) 09/28/20 04:00 ABG Potassium 4.5 mmol/L (3.40-4.50) 09/28/20 04:00 ABG Chloride 103.0 mmol/L (98-107) 09/28/20 04:00 ABG Glucose 228 mg/dL (65-95) H 09/28/20 04:00 VBG pH 7.368 (7.320-7.420) 09/15/20 18:46 Carboxyhemoglobin 0.4 (0.5-1.5) L 09/28/20 04:00 FiO2 % 90.0 09/28/20 04:00 Sodium 148 mmol/L (137-145) H 09/28/20 05:44 Potassium 4.6 mmol/L (3.6-5.0) 09/28/20 05:44 Chloride 106.6 mmol/L (98-107) 09/28/20 05:44 Carbon Dioxide 38 mmol/L (22-30) H 09/28/20 05:44 Anion Gap 8 mmol/L 09/28/20 05:44 BUN 30 mg/dL (7-17) H 09/28/20 05:44 Creatinine 0.5 mg/dL (0.6-1.2) L 09/28/20 05:44 Estimated GFR > 60 ml/min 09/28/20 05:44 BUN/Creatinine Ratio 60 % 09/28/20 05:44 Glucose 192 mg/dL (65-100) H 09/28/20 05:44 POC Glucose 235 mg/dL (70-105) H 09/28/20 11:30 Lactic Acid 2.50 mmol/L (0.7-2.0) H* 09/26/20 13:17 Calcium 8.4 mg/dL (8.4-10.2) 09/28/20 05:44 Phosphorus 2.80 mg/dL (2.5-4.5) D 09/27/20 04:47 Magnesium 2.20 mg/dL (1.7-2.3) 09/26/20 02:23 Ferritin 530.1 ng/mL (10.0-200.0) H 09/28/20 14:10 Total Bilirubin 0.80 mg/dL (0.1-1.2) 09/19/20 06:10 AST 45 units/L (5-40) H 09/19/20 06:10 ALT 35 units/L (7-56) 09/19/20 06:10 Alkaline Phosphatase 108 units/L (35-129) 09/19/20 06:10 Ammonia 23.0 umol/L (25-60) L 09/15/20 18:46 Lactate Dehydrogenase 648 units/L (91-180) H 09/28/20 14:10 Total Creatine Kinase 1159 units/L (30-135) H 09/22/20 10:22 CK-MB (CK-2) 14.4 ng/mL (0.0-4.0) H 09/22/20 10:22 CK-MB (CK-2) Rel Index 1.2 (0-4) 09/22/20 10:22 Troponin T 0.501 ng/mL (0.00-0.029) H* D 09/22/20 10:22 C-Reactive Protein 0.60 mg/dL (0.00-1.30) 09/28/20 14:10 Total Protein 6.6 g/dL (6.3-8.2) 09/19/20 06:10 Albumin 3.5 g/dL (3.9-5) L 09/19/20 06:10 Albumin/Globulin Ratio 1.1 % 09/19/20 06:10 Triglycerides 156 mg/dL (2-149) H 09/21/20 00:46 Cholesterol 139 mg/dL (50-199) 09/21/20 00:46 LDL Cholesterol Direct 85 mg/dL (50-130) 09/21/20 00:46 HDL Cholesterol 22 mg/dL (40-59) L 09/21/20 00:46 Cholesterol/HDL Ratio 6.31 % 09/21/20 00:46 Procalcitonin 0.11 ng/mL (<0.15) 09/25/20 09:43 TSH 34.670 mlU/mL (0.270-4.200) H 09/15/20 18:46 Free T4 0.10 ng/dL (0.76-1.46) L 09/15/20 19:43 Arterial Blood Glucose 228 mg/dL (65-95) H 09/28/20 04:00 Arterial Blood Ionized Calcium 4.6 mg/dL (4.6-5.3) 09/28/20 04:00 Urine Color Yellow (Yellow) 09/15/20 Unknown Urine Turbidity Cloudy (Clear) 09/15/20 Unknown Urine pH 7.0 (5.0-7.0) 09/15/20 Unknown Ur Specific [place] 1.017 (1.003-1.030) 09/15/20 Unknown Urine Protein 100 mg/dl mg/dL (Negative) 09/15/20 Unknown Urine Glucose (UA) >=500 mg/dL (Negative) 09/15/20 Unknown Urine Ketones 20 mg/dL (Negative) 09/15/20 Unknown Urine Blood Lg (Negative) 09/15/20 Unknown Urine Nitrite Neg (Negative) 09/15/20 Unknown Urine Bilirubin Neg (Negative) 09/15/20 Unknown Urine Urobilinogen < 2.0 mg/dL (<2.0) 09/15/20 Unknown Ur Leukocyte Esterase Lg (Negative) 09/15/20 Unknown Urine WBC (Auto) > 182.0 /HPF (0.0-6.0) H 09/15/20 Unknown Urine RBC (Auto) 92.0 /HPF (0.0-6.0) 09/15/20 Unknown U Epithel Cells (Auto) 4.0 /HPF (0-13.0) 09/15/20 Unknown Urine Bacteria (Auto) 3+ /HPF (Negative) 09/15/20 Unknown Urine WBC Clumps 2+ /HPF 09/15/20 Unknown Urine Yeast (Budding) 3+ /HPF 09/15/20 Unknown Salicylates < 0.3 mg/dL (2.8-20.0) L 09/15/20 18:46 Urine Opiates Screen Presumptive negative 09/15/20 Unknown Urine Methadone Screen Presumptive negative 09/15/20 Unknown Acetaminophen 5.0 ug/mL (10.0-30.0) L 09/16/20 21:38 Ur Barbiturates Screen Presumptive negative 09/15/20 Unknown Ur Phencyclidine Scrn Presumptive negative 09/15/20 Unknown Ur Amphetamines Screen Presumptive negative 09/15/20 Unknown U Benzodiazepines Scrn Presumptive negative 09/15/20 Unknown Urine Cocaine Screen Presumptive negative 09/15/20 Unknown U Marijuana (THC) Screen Presumptive negative 09/15/20 Unknown Drugs of Abuse Note Disclamer 09/15/20 Unknown Plasma/Serum Alcohol < 0.01 % (0-0.07) 09/15/20 18:46 Coronavirus (PCR) Positive (Negative) A 09/16/20 08:00 Microbiology: Microbiology 09/27/20 16:30 Tracheal Aspirate Sputum Culture - Preliminary Laura/IV: Voiding Method External Female Catheter Active Medications - Current Medications Current Medications: Generic Name Dose Route Start Last Admin Trade Name Freq PRN Reason Stop Dose Admin Albuterol 2.5 mg 09/20/20 12:28 Albuterol 2.5 Mg/3 Ml Nebu IH Q4HRT PRN Shortness Of Breath Lipase/Protease/Amylase 1 each 09/22/20 08:06 Lipase 10,500/Protease 25,000/Amylase 43,750 (Units) Dr Young FEEDTUBE PRN PRN For Clogged Feeding Tube Ascorbic Acid 500 mg 09/22/20 22:00 09/28/20 09:09 Ascorbic Acid 500 Mg Tab PO 500 mg BID AMANDA Administration Aspirin 162 mg 09/21/20 15:00 09/28/20 09:09 Aspirin 81 Mg Tab Chew PO 162 mg QDAY AMANDA Administration Cholecalciferol 5,000 unit 09/23/20 10:00 09/28/20 09:10 Cholecalciferol (Vit D3) 5,000 Unit Tab PO 5,000 unit DAILY AMANDA Administration Clopidogrel Bisulfate 75 mg 09/22/20 10:00 09/28/20 09:10 Clopidogrel 75 Mg Tab PO 75 mg QDAY AMANDA Administration Dextrose 50 ml 09/16/20 21:24 Dextrose 50% In Water (25gm) 50 Ml Syringe IV Q30MIN PRN Hypoglycemia Protocol Doxazosin Mesylate 1 mg 09/24/20 22:00 09/27/20 21:44 Doxazosin 1 Mg Tab PO 1 mg QHS AMANDA Administration Famotidine 20 mg 09/22/20 10:00 09/28/20 09:09 Famotidine 20 Mg Tab PO 20 mg BID AMANDA Administration Fentanyl 50 mcg 09/20/20 19:02 Fentanyl 100 Mcg/2 Ml Inj IV Q10MIN PRN ANALGESIA Heparin Sodium (Porcine) 5,000 unit 09/26/20 14:00 09/28/20 05:49 Heparin 5,000 Unit/1 Ml Vial SUB-Q 5,000 unit Q8HR AMANDA Administration Hydrophilic Ointment 1 applic 09/20/20 19:02 Lip Therapy Vaseline TP Q2HR PRN Dry Lips Fentanyl Citrate 2,000 mcg in 100 mls @ 3.925 mls/hr 09/20/20 20:00 09/27/20 21:45 Fentanyl Drip Premix IV 1 mcg/kg/hr TITR AMANDA 3.925 mls/hr Administration Protocol 1 MCG/KG/HR Insulin Glargine 25 units 09/26/20 08:00 09/28/20 09:20 Insulin Glargine 100 Units/Ml SUB-Q 25 units QAMDIAB AMANDA Administration Insulin Glargine 20 units 09/26/20 22:00 09/27/20 21:44 Insulin Glargine 100 Units/Ml SUB-Q 20 units QHS [facility] Administration Insulin Human Lispro 6 unit 09/28/20 12:00 09/28/20 12:25 Insulin Lispro 100 Unit/Ml SUB-Q 6 unit Q6HR AMANDA Administration Insulin Human Regular 0 units 09/23/20 12:00 09/28/20 12:24 Insulin Regular, Human 100 Units/1 Ml SUB-Q 4 units Q6H AMANDA Administration Protocol Levothyroxine Sodium 125 mcg 09/18/20 06:00 09/28/20 05:49 Levothyroxine 125 Mcg Tab PO 125 mcg DAILY@0600 [facility] Administration Magnesium Hydroxide 30 ml 09/15/20 22:09 Magnesium Hydroxide (Mom) Oral Liqd Udc PO Q4H PRN Constipation Metoprolol Tartrate 2.5 mg 09/21/20 15:00 09/28/20 05:49 Metoprolol Tartrate 5 Mg/5 Ml Inj IV 2.5 mg Q8HR [facility] Administration Multi-Ingred Cream/Lotion/Oil/Oint 1 applic 09/20/20 19:02 Mineral Oil/Petrolatum, White Ophth Oint 3.5 Gm OU Q4HR PRN Dry Eye(s) Naloxone HCl 0.1 mg 09/15/20 18:36 Naloxone 0.4 Mg/1 Ml Inj IV Q2MIN PRN Res Rate </= 8 or 02 SAT < 92% Nitroglycerin 0.5 inch 09/22/20 06:00 09/28/20 09:09 Nitroglycerin 2% Oint 1 Gm TP 0.5 inch BIDNTG [facility] Administration Protocol Ondansetron HCl 4 mg 09/15/20 22:09 Ondansetron 4 Mg/2 Ml Inj IV Q8H PRN Nausea And Vomiting Senna 8.8 mg 09/24/20 22:00 09/27/20 21:45 Sennosides Oral Liqd 8.8 Mg/5 Ml Oral Liqd PO 8.8 mg QHS [facility] Administration Sertraline HCl 25 mg 09/17/20 12:00 09/28/20 09:10 Sertraline 25 Mg Tab PO 25 mg QDAY AMANDA Administration Simple Syrup 15 ml 09/22/20 08:06 Simple Syrup 15 Ml FEEDTUBE PRN PRN Hypoglycemia Simple Syrup 30 ml 09/22/20 08:06 Simple Syrup 15 Ml FEEDTUBE PRN PRN Hypoglycemia Sodium Bicarbonate 325 mg 09/22/20 08:06 Sodium Bicarbonate 325 Mg Tab FEEDTUBE PRN PRN For Clogged Feeding Tube Sodium Chloride 10 ml 09/16/20 10:00 09/28/20 09:10 Sodium Chloride 0.9% 10 Ml Flush Syringe IV 10 ml BID AMANDA Administration Sodium Chloride 10 ml 09/15/20 22:09 Sodium Chloride 0.9% 10 Ml Flush Syringe IV PRN PRN LINE FLUSH Sodium Chloride 5 ml 09/25/20 02:30 Sodium Chloride 0.9% 500 Ml Ivpb IV DIRECT PRN [employer]ERIAL [employer] DEVELOPER Tamsulosin HCl 0.4 mg 09/27/20 10:00 09/28/20 09:19 Tamsulosin 0.4 Mg Cap PO 0.4 mg QDAY AMANDA Administration Zinc Sulfate 220 mg 09/22/20 22:00 09/28/20 09:19 Zinc Sulfate 220 Mg Cap PO 220 mg BID AMANDA Administration Nutrition/Malnutrition Assess - Dietary Evaluation Nutrition/Malnutrition Findings: Nutrition Notes Start: 09/16/20 15:13 Freq: Status: Active Protocol: Document 09/26/20 11:52 (Rec: 09/26/20 11:54 [id number]) Nutrition Notes Initial or Follow up Reassessment Current Diagnosis Diabetes,Hypertension, Respiratory Failure Other Pertinent Diagnosis pneu, drug OD, COVID-19 Current Diet Vital AF 1.2 at 60 ml/hr Labs/Tests POC BG [phone] Phos 2.2 Pertinent Medications Sodium Phos Insulin Height 5 ft 6 in Weight 78.5 kg [place] Body Weight (kg) 59.09 BMI 27.9 Weight Status Appropriate Subjective/Other Information Insulin has been increased again this AM. Pt tolerating TF. Percent of energy/protein needs met: 100%/100% Burn Absent Trauma Absent Current % PO Negligible Minimum of two criteria No physical signs of malnutrition #1 Nutrition Diagnosis Inadequate oral intake Diagnosis Progress(for reassessment Continues documentation) Is patient on ventilator? Yes Is Patient Ambulatory and/or Out of Bed No REE-([facility]-confined to bed) [phone] Calculation Used for Recommendations [facility] Additional Notes Protein: (1.2-2g/kg) 94-157g Fluid: 1 ml/kcal Nutrition Intervention Change Diet Order: Continue TF Nutrition Support: Vital AF 1.2 at 60 ml/hr Flush 75 ml q4h or per MD Kcal 1,728 Protein (gm) 108 Fluid (mL) 1,168 Goal #1 Meet at least 75% of energy and protein needs via TF Anticipated Discharge Needs: Unable to determine at this time Follow-Up By: 09/30/20 Additional Comments F/u: BG and stable TF
[2020-09-28] MEDS: fentaNYL DRIP Premix 2,000 MCG/100 ML BAG IV SCH (22:05)
[2020-09-28] MEDS: SENNOSIDES ORAL LIQD 8.8 MG/5 ML ORAL LIQD PO SCH (22:06)
[2020-09-28] MEDS: DOXAZOSIN 1 MG TAB PO SCH (22:07)
[2020-09-29] MEDS: INSULIN REGULAR, HUMAN 100 UNITS/1 ML SUB-Q SCH ×4 (00:03→17:37)
[2020-09-29] MEDS: INSULIN LISPRO 100 UNIT/ML SUB-Q SCH ×4 (02:05→17:38)
[2020-09-29 03:02] LABS: ABG Base Excess 10.4 mmol/L (-2.0-3.0); ABG HCO3 38.9 mmol/L (20.0-26.0); ABG Methemoglobin 0.5 % (0.0-1.5); ABG Oxygen Saturation 91.9 % (95.0-99.0); ABG PCO2 74.6 mm Hg; ABG PH 7.335 pH Units (7.350-7.450); ABG PO2 63.6 mm Hg (80.0-90.0)
--- NOTE | 2020-09-29 04:22 | XRay Report ---
CHEST 1 VIEW 09/29/2020 2:58 AM INDICATION / CLINICAL INFORMATION: hypoxia. COMPARISON: 09/28/2020 FINDINGS: SUPPORT DEVICES: ET tube and NG tube again project in expected position HEART / MEDIASTINUM: No significant abnormality. LUNGS / PLEURA: Multifocal extensive bilateral parenchymal disease, unchanged No pneumothorax. ADDITIONAL FINDINGS: No significant additional findings. IMPRESSION: 1. Stable bilateral pneumonia Signer Name: Antonio Christian MD Signed: 09/29/2020 4:17 AM Workstation Name: [id number]
[2020-09-29] MEDS: HEPARIN 5,000 UNIT/1 ML VIAL SUB-Q SCH (05:06)
[2020-09-29] MEDS: METOPROLOL TARTRATE 5 MG/5 ML INJ IV SCH ×3 (05:06→21:47)
[2020-09-29] MEDS: NITROGLYCERIN 2% OINT 1 GM TP SCH ×2 (05:07→13:43)
[2020-09-29] MEDS: LEVOTHYROXINE 125 MCG TAB PO SCH (07:01)
[2020-09-29] MEDS: INSULIN GLARGINE 100 UNITS/ML SUB-Q SCH ×2 (08:00→13:47)
[2020-09-29 09:16] LABS: Hematocrit 38.2 % (30.3-42.9); Hemoglobin 12.1 gm/dl (10.1-14.3); Mean Corpuscular HGB Conc 32 % (30-34); Mean Corpuscular Volume 99 fl (79-97); Platelet Count 175 K/mm3 (140-440); Red Blood Count 3.88 M/mm3 (3.65-5.03); Red Cell Distribution Width 15.7 % (13.2-15.2)
[2020-09-29 09:57] LABS: Blood Urea Nitrogen 40 mg/dL (7-17); Calcium 8.2 mg/dL (8.4-10.2); Hemolysis Index 37
[2020-09-29 10:03] LABS: BUN/Creatinine Ratio 57
--- NOTE | 2020-09-29 12:20 | Progress Note ---
Assessment and Plan Acute toxic metabolic encephalopathy Severe sepsis Community acquired pneumonia coronavirus-19 infection Acute hypoxemic respiratory failure Hyponatremia at presentation Diabetes, poorly controlled Lactic acidosis Urinary tract infection Tobacco use disorder (care plan discussed at length with patients eldest son today and his questions were answered) - Bolus 500 ml's IVNS - PICC line consult - lower extremity dopplers negative but too unstable to send for CTA - hypoxemia has worsened really since IV Heparin stopped and unable to r/o VTE; will resume IV Heparin empirically - continue to wean supplemental oxygen for target O2 sat's > 92% acutely - continue care as below otherwise; - continue Daily SAT and SBT assessment as tolerated - VAP bundle addressed - continue lung protective strategies - continue bronchodilators with pulmonary hygiene per RT - wean per pulmonary driven protocols otherwise - continue accuchecks with glycemic control per SSI (While critically ill target blood glucose of 140-180 mg/dL; avoid hypoglycemia) - sedation prn for target RASS -1 to -2 - avoid nephrotoxins, renally dose all medications - continue to avoid benzodiazepine's, reduce the possibility of delirium - complete anti-infective's per ID rec's - prn analgesia per CPOT score - Maintenance of sleep-wake cycle, avoid delirium - continue enteral nutritional support at goal rate as tolerated - G.I. & VTE prophylaxis - PT/OT/ROM exercises - continue mobility protocols for pressure ulcer prophylaxis - Monitor hemodynamics closely - continue other care per attending / other consultants - discharge planning ongoing concurrently COVID SPECIFIC INTERVENTIONS - continue contact and airborne isolation - Remdesivir as per ID/Pulmonary developed protocols (ordered) - continue systemic steroids for severe COVID-19 infection - follow repeat COVID tests results - zinc and vitamin C supplementation - Monitor inflammatory markers per facility protocol - ferritin, D-dimer, CRP - therapeutic anticoagulation per system Protocol based on d-dimer and clinical considerations (not indicated) .... Re-evaluate in am & prn CONDITION: CRITICAL PROGNOSIS: GUARDED CODE STATUS: FULL CODE The high probability of a clinically significant, sudden or life-threatening deterioration of the [respiratory, cardiovascular & neurologic] system(s) required my full and direct attention, intervention and personal management. The aggregate critical care time was [36] minutes without overlap. Time includes spent on; [x] Data Review and interpretation [x] Patient assessment and monitoring of vital signs [x] Documentation [x] Medication orders and management Subjective Date of service: 09/29/20 Principal diagnosis: Ac encephalopathy; CAP; Sepsis; COVID-19 infxn; Ac hypoxe ede resp failure Interval history: Patient is seen today for: Acute toxic metabolic encephalopathy; CAP; Severe sepsis; COVID-19 infection; Acute hypoxemic respiratory failure UTI; DM II Seen and examined at bedside; 24hour events reviewed; nursing and respiratory care staff consulted; no adverse overnight events reported to me; resting in bed; remains on MVS; AMS is persistent; remains with ARDS; no emesis or overt aspiration; too unstable for CTA chest; BP's labile this morning Objective Vital Signs - 12hr 09/29/20 09/29/20 09/29/20 00:30 00:45 01:00 Temperature Pulse Rate 105 H 100 H 108 H Pulse Rate [ From Monitor] Respiratory 17 18 18 Rate Blood Pressure 118/62 113/56 117/54 O2 Sat by Pulse 89 89 89 Oximetry 09/29/20 09/29/20 09/29/20 01:02 01:15 01:30 Temperature Pulse Rate 107 H 105 H Pulse Rate [ From Monitor] Respiratory 18 18 Rate Blood Pressure 120/64 112/67 O2 Sat by Pulse 89 91 92 Oximetry 09/29/20 09/29/20 09/29/20 01:45 02:00 02:15 Temperature Pulse Rate 105 H 105 H 104 H Pulse Rate [ From Monitor] Respiratory 19 20 18 Rate Blood Pressure 109/67 109/67 110/60 O2 Sat by Pulse 90 89 89 Oximetry 09/29/20 09/29/20 09/29/20 02:30 02:45 03:00 Temperature Pulse Rate 106 H 105 H 105 H Pulse Rate [ From Monitor] Respiratory 18 18 15 Rate Blood Pressure 112/63 117/62 121/61 O2 Sat by Pulse 87 87 89 Oximetry 09/29/20 09/29/20 09/29/20 03:15 03:30 03:45 Temperature Pulse Rate 106 H 106 H 104 H Pulse Rate [ From Monitor] Respiratory 17 18 18 Rate Blood Pressure 119/62 105/61 106/59 O2 Sat by Pulse 88 88 87 Oximetry 09/29/20 09/29/20 09/29/20 04:00 04:15 04:30 Temperature 97.9 F Pulse Rate 101 H 104 H 105 H Pulse Rate [ 105 H From Monitor] Respiratory 18 18 18 Rate Blood Pressure 115/58 113/60 110/61 O2 Sat by Pulse 88 89 89 Oximetry 09/29/20 09/29/20 09/29/20 04:36 04:45 05:00 Temperature Pulse Rate 104 H 104 H 104 H Pulse Rate [ From Monitor] Respiratory 18 18 Rate Blood Pressure 110/61 117/59 102/60 O2 Sat by Pulse 89 89 88 Oximetry 09/29/20 09/29/20 09/29/20 05:06 05:07 05:15 Temperature Pulse Rate 104 H 104 H Pulse Rate [ From Monitor] Respiratory 23 Rate Blood Pressure 102/60 102/60 102/60 O2 Sat by Pulse 89 Oximetry 09/29/20 09/29/20 09/29/20 05:30 05:45 06:00 Temperature Pulse Rate 90 101 H 102 H Pulse Rate [ From Monitor] Respiratory 18 18 18 Rate Blood Pressure 87/53 109/63 104/66 O2 Sat by Pulse 83 L 88 88 Oximetry 09/29/20 09/29/20 09/29/20 06:15 06:30 06:45 Temperature Pulse Rate 102 H 102 H 103 H Pulse Rate [ From Monitor] Respiratory 17 18 17 Rate Blood Pressure 102/57 98/56 97/60 O2 Sat by Pulse 86 88 87 Oximetry 09/29/20 09/29/20 09/29/20 07:00 07:15 07:22 Temperature 99.7 F H Pulse Rate 104 H 105 H 102 H Pulse Rate [ From Monitor] Respiratory 17 18 Rate Blood Pressure 95/61 100/60 100/60 O2 Sat by Pulse 88 88 87 Oximetry 09/29/20 09/29/20 09/29/20 07:30 07:45 08:00 Temperature 100.4 F H Pulse Rate 102 H 105 H 108 H Pulse Rate [ From Monitor] Respiratory 17 18 18 Rate Blood Pressure 98/58 89/58 91/64 O2 Sat by Pulse 84 86 88 Oximetry 09/29/20 09/29/20 09/29/20 08:15 08:30 08:45 Temperature Pulse Rate 110 H 110 H 113 H Pulse Rate [ From Monitor] Respiratory 17 17 18 Rate Blood Pressure 100/55 92/55 94/53 O2 Sat by Pulse 88 88 88 Oximetry 09/29/20 09/29/20 08:48 12:00 Temperature 101.5 F H Pulse Rate Pulse Rate [ 112 H From Monitor] Respiratory 18 Rate Blood Pressure O2 Sat by Pulse 88 Oximetry Constitutional: appears uncomfortable, other (middle aged female with mildly increased respiratory effort at rest on MVS) Eyes: non-icteric ENT: oropharynx moist, other (ETT 26 cm JOSHUA) Neck: supple, no lymphadenopathy Effort: mildly labored Ascultation: Bilateral: diminished breath sounds, rhonchi Percussion: Bilateral: not dull Cardiovascular: regular rate and rhythm Gastrointestinal: normoactive bowel sounds, soft, non-tender, non-distended (protuberant) Integumentary: normal Extremities: no cyanosis, no edema, pink and warm, pulses normal Neurologic: non-focal exam (grossly), pupils equal and round, motor strength normal and, unable to assess, other (sedated) Psychiatric: other (lethargic) CBC and BMP: 09/30/20 07:19 09/30/20 07:19 ABG, PT/INR, D-dimer: ABG ABG pH 7.335 pH Units (7.350-7.450) L 09/29/20 02:50 POC ABG pCO2 63.5 mmHg (32.0-48.0) H 09/28/20 04:00 ABG pCO2 74.6 mm Hg 09/29/20 02:50 POC ABG pO2 76.9 mmHg (83-108) L 09/28/20 04:00 ABG pO2 63.6 mm Hg (80.0-90.0) L 09/29/20 02:50 POC ABG HCO3 40.0 09/28/20 04:00 ABG O2 Saturation 91.9 % (95.0-99.0) L 09/29/20 02:50 PT/INR, D-dimer PT 20.0 Sec. (12.2-14.9) H 09/21/20 02:14 INR 1.65 (0.87-1.13) H 09/21/20 02:14 D-Dimer 4603.21 ng/mlDDU (0-234) H 09/28/20 14:10 Abnormal lab findings: Abnormal Labs 09/15/20 09/15/20 09/15/20 18:46 18:46 18:46 WBC Hgb 14.4 H MCV MCH MCHC RDW Lymph % (Auto) Lymph # (Auto) Seg Neutrophils % Seg Neutrophils # PT INR APTT D-Dimer Heparin Anti-Xa Level ABG pH POC ABG pCO2 POC ABG pO2 ABG pO2 ABG HCO3 ABG O2 Saturation ABG Base Excess ABG Hemoglobin ABG Oxyhemoglobin ABG Sodium ABG Potassium ABG Chloride ABG Glucose Oxyhemoglobin Carboxyhemoglobin Sodium 128 L Potassium 3.2 L Chloride 89.3 L Carbon Dioxide BUN Creatinine Glucose 388 H POC Glucose Lactic Acid Calcium 8.2 L Phosphorus Ferritin AST 69 H Ammonia Lactate Dehydrogenase Total Creatine Kinase CK-MB (CK-2) Troponin T C-Reactive Protein Albumin 3.6 L Triglycerides HDL Cholesterol TSH 34.670 H Free T4 Arterial Blood Glucose Arterial Blood Ionized Calcium Urine WBC (Auto) Salicylates Acetaminophen Coronavirus (PCR) 09/15/20 09/15/20 09/15/20 18:46 18:46 18:46 WBC Hgb MCV MCH MCHC RDW Lymph % (Auto) Lymph # (Auto) Seg Neutrophils % Seg Neutrophils # PT INR APTT D-Dimer Heparin Anti-Xa Level ABG pH POC ABG pCO2 POC ABG pO2 ABG pO2 ABG HCO3 ABG O2 Saturation ABG Base Excess ABG Hemoglobin ABG Oxyhemoglobin ABG Sodium ABG Potassium ABG Chloride ABG Glucose Oxyhemoglobin Carboxyhemoglobin Sodium Potassium Chloride Carbon Dioxide BUN Creatinine Glucose POC Glucose Lactic Acid Calcium Phosphorus Ferritin AST Ammonia 23.0 L Lactate Dehydrogenase Total Creatine Kinase CK-MB (CK-2) Troponin T C-Reactive Protein Albumin Triglycerides HDL Cholesterol TSH Free T4 Arterial Blood Glucose Arterial Blood Ionized Calcium Urine WBC (Auto) Salicylates < 0.3 L Acetaminophen 9.1 L Coronavirus (PCR) 09/15/20 09/15/20 09/15/20 19:38 19:40 19:43 WBC Hgb MCV MCH MCHC RDW Lymph % (Auto) Lymph # (Auto) Seg Neutrophils % Seg Neutrophils # PT INR APTT D-Dimer Heparin Anti-Xa Level ABG pH POC ABG pCO2 POC ABG pO2 ABG pO2 ABG HCO3 ABG O2 Saturation ABG Base Excess ABG Hemoglobin ABG Oxyhemoglobin ABG Sodium ABG Potassium ABG Chloride ABG Glucose Oxyhemoglobin Carboxyhemoglobin Sodium Potassium Chloride Carbon Dioxide BUN Creatinine Glucose POC Glucose 398 H Lactic Acid 2.70 H* Calcium Phosphorus Ferritin AST Ammonia Lactate Dehydrogenase Total Creatine Kinase CK-MB (CK-2) Troponin T C-Reactive Protein Albumin Triglycerides HDL Cholesterol TSH Free T4 0.10 L Arterial Blood Glucose Arterial Blood Ionized Calcium Urine WBC (Auto) Salicylates Acetaminophen Coronavirus (PCR) 09/15/20 09/15/20 09/16/20 20:02 Unknown 04:47 WBC Hgb 14.8 H MCV MCH 33 H MCHC 36 H RDW Lymph % (Auto) 7.3 L Lymph # (Auto) 0.8 L Seg Neutrophils % 85.7 H Seg Neutrophils # 8.9 H PT INR APTT D-Dimer Heparin Anti-Xa Level ABG pH POC ABG pCO2 31.1 L POC ABG pO2 46.9 L ABG pO2 ABG HCO3 ABG O2 Saturation ABG Base Excess ABG Hemoglobin ABG Oxyhemoglobin 82.8 L ABG Sodium 129.8 L ABG Potassium 3.1 L ABG Chloride ABG Glucose 374 H Oxyhemoglobin Carboxyhemoglobin Sodium Potassium Chloride Carbon Dioxide BUN Creatinine Glucose POC Glucose Lactic Acid Calcium Phosphorus Ferritin AST Ammonia Lactate Dehydrogenase Total Creatine Kinase CK-MB (CK-2) Troponin T C-Reactive Protein Albumin Triglycerides HDL Cholesterol TSH Free T4 Arterial Blood Glucose 374 H Arterial Blood Ionized Calcium Urine WBC (Auto) > 182.0 H Salicylates Acetaminophen Coronavirus (PCR) 09/16/20 09/16/20 09/16/20 04:47 07:20 08:00 WBC Hgb MCV MCH MCHC RDW Lymph % (Auto) Lymph # (Auto) Seg Neutrophils % Seg Neutrophils # PT INR APTT D-Dimer Heparin Anti-Xa Level ABG pH POC ABG pCO2 POC ABG pO2 ABG pO2 ABG HCO3 ABG O2 Saturation ABG Base Excess ABG Hemoglobin ABG Oxyhemoglobin ABG Sodium ABG Potassium ABG Chloride ABG Glucose Oxyhemoglobin Carboxyhemoglobin Sodium 135 L D Potassium Chloride 94.1 L Carbon Dioxide BUN Creatinine Glucose 418 H POC Glucose 403 H Lactic Acid Calcium 8.3 L Phosphorus Ferritin AST Ammonia Lactate Dehydrogenase Total Creatine Kinase CK-MB (CK-2) Troponin T C-Reactive Protein Albumin Triglycerides HDL Cholesterol TSH Free T4 Arterial Blood Glucose Arterial Blood Ionized Calcium Urine WBC (Auto) Salicylates Acetaminophen Coronavirus (PCR) Positive A 09/16/20 09/16/20 09/16/20 11:43 16:17 21:38 WBC Hgb MCV MCH MCHC RDW Lymph % (Auto) Lymph # (Auto) Seg Neutrophils % Seg Neutrophils # PT INR APTT D-Dimer 702.65 H Heparin Anti-Xa Level ABG pH POC ABG pCO2 POC ABG pO2 ABG pO2 ABG HCO3 ABG O2 Saturation ABG Base Excess ABG Hemoglobin ABG Oxyhemoglobin ABG Sodium ABG Potassium ABG Chloride ABG Glucose Oxyhemoglobin Carboxyhemoglobin Sodium Potassium Chloride Carbon Dioxide BUN Creatinine Glucose POC Glucose 417 H 353 H Lactic Acid Calcium Phosphorus Ferritin AST Ammonia Lactate Dehydrogenase Total Creatine Kinase CK-MB (CK-2) Troponin T C-Reactive Protein Albumin Triglycerides HDL Cholesterol TSH Free T4 Arterial Blood Glucose Arterial Blood Ionized Calcium Urine WBC (Auto) Salicylates Acetaminophen Coronavirus (PCR) 09/16/20 09/16/20 09/16/20 21:38 21:38 21:38 WBC Hgb MCV MCH MCHC RDW Lymph % (Auto) Lymph # (Auto) Seg Neutrophils % Seg Neutrophils # PT INR APTT D-Dimer Heparin Anti-Xa Level ABG pH POC ABG pCO2 POC ABG pO2 ABG pO2 ABG HCO3 ABG O2 Saturation ABG Base Excess ABG Hemoglobin ABG Oxyhemoglobin ABG Sodium ABG Potassium ABG Chloride ABG Glucose Oxyhemoglobin Carboxyhemoglobin Sodium Potassium Chloride Carbon Dioxide BUN Creatinine Glucose POC Glucose Lactic Acid Calcium Phosphorus Ferritin 1089.0 H AST Ammonia Lactate Dehydrogenase 722 H Total Creatine Kinase CK-MB (CK-2) Troponin T C-Reactive Protein 6.80 H Albumin Triglycerides HDL Cholesterol TSH Free T4 Arterial Blood Glucose Arterial Blood Ionized Calcium Urine WBC (Auto) Salicylates Acetaminophen 5.0 L Coronavirus (PCR) 09/16/20 09/16/20 09/17/20 21:38 22:24 04:59 WBC Hgb MCV MCH MCHC RDW Lymph % (Auto) Lymph # (Auto) Seg Neutrophils % Seg Neutrophils # PT INR APTT D-Dimer Heparin Anti-Xa Level ABG pH POC ABG pCO2 POC ABG pO2 ABG pO2 ABG HCO3 ABG O2 Saturation ABG Base Excess ABG Hemoglobin ABG Oxyhemoglobin ABG Sodium ABG Potassium ABG Chloride ABG Glucose Oxyhemoglobin Carboxyhemoglobin Sodium 134 L 135 L Potassium 3.5 L 3.0 L Chloride 95.1 L 97.2 L Carbon Dioxide BUN Creatinine Glucose 288 H 149 H POC Glucose 307 H Lactic Acid Calcium 8.2 L Phosphorus Ferritin AST 43 H 49 H Ammonia Lactate Dehydrogenase Total Creatine Kinase CK-MB (CK-2) Troponin T C-Reactive Protein Albumin 3.7 L 3.3 L Triglycerides HDL Cholesterol TSH Free T4 Arterial Blood Glucose Arterial Blood Ionized Calcium Urine WBC (Auto) Salicylates Acetaminophen Coronavirus (PCR) 09/17/20 09/17/20 09/17/20 12:25 16:57 21:30 WBC Hgb MCV MCH MCHC RDW Lymph % (Auto) Lymph # (Auto) Seg Neutrophils % Seg Neutrophils # PT INR APTT D-Dimer Heparin Anti-Xa Level ABG pH POC ABG pCO2 POC ABG pO2 ABG pO2 ABG HCO3 ABG O2 Saturation ABG Base Excess ABG Hemoglobin ABG Oxyhemoglobin ABG Sodium ABG Potassium ABG Chloride ABG Glucose Oxyhemoglobin Carboxyhemoglobin Sodium Potassium Chloride Carbon Dioxide BUN Creatinine Glucose POC Glucose 199 H 313 H 304 H Lactic Acid Calcium Phosphorus Ferritin AST Ammonia Lactate Dehydrogenase Total Creatine Kinase CK-MB (CK-2) Troponin T C-Reactive Protein Albumin Triglycerides HDL Cholesterol TSH Free T4 Arterial Blood Glucose Arterial Blood Ionized Calcium Urine WBC (Auto) Salicylates Acetaminophen Coronavirus (PCR) 09/18/20 09/18/20 09/18/20 08:01 08:05 12:36 WBC Hgb MCV MCH MCHC RDW Lymph % (Auto) Lymph # (Auto) Seg Neutrophils % Seg Neutrophils # PT INR APTT D-Dimer Heparin Anti-Xa Level ABG pH POC ABG pCO2 POC ABG pO2 ABG pO2 ABG HCO3 ABG O2 Saturation ABG Base Excess ABG Hemoglobin ABG Oxyhemoglobin ABG Sodium ABG Potassium ABG Chloride ABG Glucose Oxyhemoglobin Carboxyhemoglobin Sodium Potassium 3.1 L Chloride Carbon Dioxide BUN Creatinine Glucose 112 H POC Glucose 125 H 159 H Lactic Acid Calcium 8.3 L Phosphorus Ferritin AST 47 H Ammonia Lactate Dehydrogenase Total Creatine Kinase CK-MB (CK-2) Troponin T C-Reactive Protein Albumin 3.3 L Triglycerides HDL Cholesterol TSH Free T4 Arterial Blood Glucose Arterial Blood Ionized Calcium Urine WBC (Auto) Salicylates Acetaminophen Coronavirus (PCR) 09/18/20 09/18/20 09/19/20 16:57 21:40 06:10 WBC Hgb MCV MCH MCHC RDW Lymph % (Auto) Lymph # (Auto) Seg Neutrophils % Seg Neutrophils # PT INR APTT D-Dimer Heparin Anti-Xa Level ABG pH POC ABG pCO2 POC ABG pO2 ABG pO2 ABG HCO3 ABG O2 Saturation ABG Base Excess ABG Hemoglobin ABG Oxyhemoglobin ABG Sodium ABG Potassium ABG Chloride ABG Glucose Oxyhemoglobin Carboxyhemoglobin Sodium Potassium 2.8 L* Chloride 97.7 L Carbon Dioxide BUN Creatinine 0.4 L Glucose 146 H POC Glucose 180 H 225 H Lactic Acid Calcium 8.2 L Phosphorus Ferritin AST 45 H Ammonia Lactate Dehydrogenase Total Creatine Kinase CK-MB (CK-2) Troponin T C-Reactive Protein Albumin 3.5 L Triglycerides HDL Cholesterol TSH Free T4 Arterial Blood Glucose Arterial Blood Ionized Calcium Urine WBC (Auto) Salicylates Acetaminophen Coronavirus (PCR) 09/19/20 09/19/20 09/19/20 08:06 11:14 17:50 WBC Hgb MCV MCH MCHC RDW Lymph % (Auto) Lymph # (Auto) Seg Neutrophils % Seg Neutrophils # PT INR APTT D-Dimer Heparin Anti-Xa Level ABG pH POC ABG pCO2 POC ABG pO2 ABG pO2 ABG HCO3 ABG O2 Saturation ABG Base Excess ABG Hemoglobin ABG Oxyhemoglobin ABG Sodium ABG Potassium ABG Chloride ABG Glucose Oxyhemoglobin Carboxyhemoglobin Sodium Potassium Chloride Carbon Dioxide BUN Creatinine Glucose POC Glucose 175 H 210 H 291 H Lactic Acid Calcium Phosphorus Ferritin AST Ammonia Lactate Dehydrogenase Total Creatine Kinase CK-MB (CK-2) Troponin T C-Reactive Protein Albumin Triglycerides HDL Cholesterol TSH Free T4 Arterial Blood Glucose Arterial Blood Ionized Calcium Urine WBC (Auto) Salicylates Acetaminophen Coronavirus (PCR) 09/19/20 09/20/20 09/20/20 21:30 05:23 05:23 WBC Hgb MCV MCH MCHC RDW Lymph % (Auto) Lymph # (Auto) Seg Neutrophils % Seg Neutrophils # PT INR APTT D-Dimer Heparin Anti-Xa Level ABG pH POC ABG pCO2 POC ABG pO2 ABG pO2 ABG HCO3 ABG O2 Saturation ABG Base Excess ABG Hemoglobin ABG Oxyhemoglobin ABG Sodium ABG Potassium ABG Chloride ABG Glucose Oxyhemoglobin Carboxyhemoglobin Sodium 131 L Potassium 3.3 L D Chloride 95.4 L Carbon Dioxide 18 L BUN Creatinine 0.4 L Glucose 169 H POC Glucose 232 H Lactic Acid Calcium 8.3 L Phosphorus Ferritin 738.9 H AST Ammonia Lactate Dehydrogenase 882 H Total Creatine Kinase CK-MB (CK-2) Troponin T C-Reactive Protein 11.40 H Albumin Triglycerides HDL Cholesterol TSH Free T4 Arterial Blood Glucose Arterial Blood Ionized Calcium Urine WBC (Auto) Salicylates Acetaminophen Coronavirus (PCR) 09/20/20 09/20/20 09/20/20 05:23 06:50 10:46 WBC Hgb MCV MCH MCHC RDW Lymph % (Auto) Lymph # (Auto) Seg Neutrophils % Seg Neutrophils # PT INR APTT D-Dimer 4940.20 H Heparin Anti-Xa Level ABG pH 7.289 L POC ABG pCO2 POC ABG pO2 50.1 L ABG pO2 ABG HCO3 ABG O2 Saturation ABG Base Excess ABG Hemoglobin ABG Oxyhemoglobin 80.8 L ABG Sodium 130.8 L ABG Potassium ABG Chloride 97.0 L ABG Glucose 275 H Oxyhemoglobin Carboxyhemoglobin Sodium Potassium Chloride Carbon Dioxide BUN Creatinine Glucose POC Glucose 242 H Lactic Acid Calcium Phosphorus Ferritin AST Ammonia Lactate Dehydrogenase Total Creatine Kinase CK-MB (CK-2) Troponin T C-Reactive Protein Albumin Triglycerides HDL Cholesterol TSH Free T4 Arterial Blood Glucose 275 H Arterial Blood Ionized Calcium 4.2 L Urine WBC (Auto) Salicylates Acetaminophen Coronavirus (PCR) 09/20/20 09/20/20 09/20/20 11:58 16:30 16:41 WBC Hgb MCV MCH MCHC RDW Lymph % (Auto) Lymph # (Auto) Seg Neutrophils % Seg Neutrophils # PT INR APTT D-Dimer Heparin Anti-Xa Level ABG pH POC ABG pCO2 27.8 L POC ABG pO2 79.7 L ABG pO2 ABG HCO3 ABG O2 Saturation ABG Base Excess ABG Hemoglobin ABG Oxyhemoglobin ABG Sodium 131.0 L ABG Potassium ABG Chloride ABG Glucose 297 H Oxyhemoglobin Carboxyhemoglobin Sodium Potassium Chloride Carbon Dioxide BUN Creatinine Glucose POC Glucose 262 H 283 H Lactic Acid Calcium Phosphorus Ferritin AST Ammonia Lactate Dehydrogenase Total Creatine Kinase CK-MB (CK-2) Troponin T C-Reactive Protein Albumin Triglycerides HDL Cholesterol TSH Free T4 Arterial Blood Glucose 297 H Arterial Blood Ionized Calcium 4.3 L Urine WBC (Auto) Salicylates Acetaminophen Coronavirus (PCR) 09/20/20 09/20/20 09/21/20 17:26 21:29 00:46 WBC Hgb MCV MCH MCHC RDW Lymph % (Auto) Lymph # (Auto) Seg Neutrophils % Seg Neutrophils # PT INR APTT D-Dimer Heparin Anti-Xa Level ABG pH POC ABG pCO2 POC ABG pO2 ABG pO2 ABG HCO3 ABG O2 Saturation ABG Base Excess ABG Hemoglobin ABG Oxyhemoglobin ABG Sodium ABG Potassium ABG Chloride ABG Glucose Oxyhemoglobin Carboxyhemoglobin Sodium Potassium Chloride Carbon Dioxide BUN Creatinine Glucose POC Glucose 297 H 248 H Lactic Acid Calcium Phosphorus Ferritin AST Ammonia Lactate Dehydrogenase Total Creatine Kinase CK-MB (CK-2) Troponin T 0.444 H* C-Reactive Protein Albumin Triglycerides 156 H HDL Cholesterol 22 L TSH Free T4 Arterial Blood Glucose Arterial Blood Ionized Calcium Urine WBC (Auto) Salicylates Acetaminophen Coronavirus (PCR) 09/21/20 09/21/20 09/21/20 00:46 02:14 03:22 WBC Hgb MCV MCH MCHC RDW Lymph % (Auto) Lymph # (Auto) Seg Neutrophils % Seg Neutrophils # PT 20.0 H INR 1.65 H APTT 38.2 H D-Dimer Heparin Anti-Xa Level ABG pH POC ABG pCO2 POC ABG pO2 70.3 L ABG pO2 ABG HCO3 ABG O2 Saturation ABG Base Excess ABG Hemoglobin ABG Oxyhemoglobin 92.2 L ABG Sodium 134.2 L ABG Potassium ABG Chloride ABG Glucose 187 H Oxyhemoglobin Carboxyhemoglobin Sodium 134 L Potassium Chloride Carbon Dioxide 18 L BUN 23 H Creatinine Glucose 198 H POC Glucose Lactic Acid Calcium 6.7 L D Phosphorus Ferritin AST Ammonia Lactate Dehydrogenase Total Creatine Kinase CK-MB (CK-2) Troponin T C-Reactive Protein Albumin Triglycerides HDL Cholesterol TSH Free T4 Arterial Blood Glucose 187 H Arterial Blood Ionized Calcium 4.2 L Urine WBC (Auto) Salicylates Acetaminophen Coronavirus (PCR) 09/21/20 09/21/20 09/21/20 07:26 08:15 11:21 WBC Hgb MCV MCH MCHC RDW Lymph % (Auto) Lymph # (Auto) Seg Neutrophils % Seg Neutrophils # PT INR APTT D-Dimer Heparin Anti-Xa Level 0.97 H ABG pH POC ABG pCO2 POC ABG pO2 ABG pO2 ABG HCO3 ABG O2 Saturation ABG Base Excess ABG Hemoglobin ABG Oxyhemoglobin ABG Sodium ABG Potassium ABG Chloride ABG Glucose Oxyhemoglobin Carboxyhemoglobin Sodium Potassium Chloride Carbon Dioxide BUN Creatinine Glucose POC Glucose 157 H 153 H Lactic Acid Calcium Phosphorus Ferritin AST Ammonia Lactate Dehydrogenase Total Creatine Kinase CK-MB (CK-2) Troponin T C-Reactive Protein Albumin Triglycerides HDL Cholesterol TSH Free T4 Arterial Blood Glucose Arterial Blood Ionized Calcium Urine WBC (Auto) Salicylates Acetaminophen Coronavirus (PCR) 09/21/20 09/21/20 09/21/20 15:16 15:59 18:58 WBC Hgb MCV MCH MCHC RDW Lymph % (Auto) Lymph # (Auto) Seg Neutrophils % Seg Neutrophils # PT INR APTT D-Dimer Heparin Anti-Xa Level 0.90 H ABG pH POC ABG pCO2 POC ABG pO2 ABG pO2 ABG HCO3 ABG O2 Saturation ABG Base Excess ABG Hemoglobin ABG Oxyhemoglobin ABG Sodium ABG Potassium ABG Chloride ABG Glucose Oxyhemoglobin Carboxyhemoglobin Sodium Potassium Chloride Carbon Dioxide BUN Creatinine Glucose POC Glucose 192 H Lactic Acid Calcium Phosphorus Ferritin AST Ammonia Lactate Dehydrogenase Total Creatine Kinase CK-MB (CK-2) Troponin T C-Reactive Protein 8.40 H Albumin Triglycerides HDL Cholesterol TSH Free T4 Arterial Blood Glucose Arterial Blood Ionized Calcium Urine WBC (Auto) Salicylates Acetaminophen Coronavirus (PCR) 09/21/20 09/21/20 09/22/20 18:58 21:14 01:33 WBC Hgb MCV MCH MCHC RDW Lymph % (Auto) Lymph # (Auto) Seg Neutrophils % Seg Neutrophils # PT INR APTT D-Dimer Heparin Anti-Xa Level 0.78 H ABG pH POC ABG pCO2 POC ABG pO2 ABG pO2 ABG HCO3 ABG O2 Saturation ABG Base Excess ABG Hemoglobin ABG Oxyhemoglobin ABG Sodium ABG Potassium ABG Chloride ABG Glucose Oxyhemoglobin Carboxyhemoglobin Sodium Potassium Chloride Carbon Dioxide BUN Creatinine Glucose POC Glucose 172 H Lactic Acid Calcium Phosphorus Ferritin AST Ammonia Lactate Dehydrogenase Total Creatine Kinase 536 H CK-MB (CK-2) 17.8 H Troponin T 0.793 H* D C-Reactive Protein Albumin Triglycerides HDL Cholesterol TSH Free T4 Arterial Blood Glucose Arterial Blood Ionized Calcium Urine WBC (Auto) Salicylates Acetaminophen Coronavirus (PCR) 09/22/20 09/22/20 09/22/20 04:15 07:15 10:22 WBC Hgb MCV MCH MCHC RDW Lymph % (Auto) Lymph # (Auto) Seg Neutrophils % Seg Neutrophils # PT INR APTT D-Dimer Heparin Anti-Xa Level ABG pH POC ABG pCO2 POC ABG pO2 ABG pO2 ABG HCO3 ABG O2 Saturation ABG Base Excess ABG Hemoglobin ABG Oxyhemoglobin ABG Sodium 132.9 L ABG Potassium ABG Chloride ABG Glucose 155 H Oxyhemoglobin Carboxyhemoglobin Sodium Potassium Chloride Carbon Dioxide BUN Creatinine Glucose POC Glucose 159 H Lactic Acid Calcium Phosphorus Ferritin AST Ammonia Lactate Dehydrogenase Total Creatine Kinase 1159 H CK-MB (CK-2) 14.4 H Troponin T 0.501 H* D C-Reactive Protein Albumin Triglycerides HDL Cholesterol TSH Free T4 Arterial Blood Glucose 155 H Arterial Blood Ionized Calcium 4.3 L Urine WBC (Auto) Salicylates Acetaminophen Coronavirus (PCR) 09/22/20 09/22/20 09/22/20 11:34 16:35 17:44 WBC Hgb MCV MCH MCHC RDW Lymph % (Auto) Lymph # (Auto) Seg Neutrophils % Seg Neutrophils # PT INR APTT D-Dimer Heparin Anti-Xa Level 0.15 L ABG pH POC ABG pCO2 POC ABG pO2 ABG pO2 ABG HCO3 ABG O2 Saturation ABG Base Excess ABG Hemoglobin ABG Oxyhemoglobin ABG Sodium ABG Potassium ABG Chloride ABG Glucose Oxyhemoglobin Carboxyhemoglobin Sodium Potassium Chloride Carbon Dioxide BUN Creatinine Glucose POC Glucose 206 H 273 H Lactic Acid Calcium Phosphorus Ferritin AST Ammonia Lactate Dehydrogenase Total Creatine Kinase CK-MB (CK-2) Troponin T C-Reactive Protein Albumin Triglycerides HDL Cholesterol TSH Free T4 Arterial Blood Glucose Arterial Blood Ionized Calcium Urine WBC (Auto) Salicylates Acetaminophen Coronavirus (PCR) 09/23/20 09/23/20 09/23/20 00:32 04:00 05:11 WBC Hgb MCV MCH MCHC RDW Lymph % (Auto) Lymph # (Auto) Seg Neutrophils % Seg Neutrophils # PT INR APTT D-Dimer Heparin Anti-Xa Level ABG pH POC ABG pCO2 POC ABG pO2 75.7 L ABG pO2 ABG HCO3 ABG O2 Saturation ABG Base Excess ABG Hemoglobin ABG Oxyhemoglobin ABG Sodium 135.0 L ABG Potassium ABG Chloride ABG Glucose 237 H Oxyhemoglobin Carboxyhemoglobin Sodium Potassium Chloride Carbon Dioxide BUN Creatinine Glucose POC Glucose 287 H 210 H Lactic Acid Calcium Phosphorus Ferritin AST Ammonia Lactate Dehydrogenase Total Creatine Kinase CK-MB (CK-2) Troponin T C-Reactive Protein Albumin Triglycerides HDL Cholesterol TSH Free T4 Arterial Blood Glucose 237 H Arterial Blood Ionized Calcium 4.5 L Urine WBC (Auto) Salicylates Acetaminophen Coronavirus (PCR) 09/23/20 09/23/2009/23/21 08:02 10:03 10:03 WBC 13.8 H Hgb MCV MCH MCHC RDW Lymph % (Auto) Lymph # (Auto) Seg Neutrophils % Seg Neutrophils # PT INR APTT D-Dimer 2573.89 H Heparin Anti-Xa Level ABG pH POC ABG pCO2 POC ABG pO2 ABG pO2 ABG HCO3 ABG O2 Saturation ABG Base Excess ABG Hemoglobin ABG Oxyhemoglobin ABG Sodium ABG Potassium ABG Chloride ABG Glucose Oxyhemoglobin Carboxyhemoglobin Sodium Potassium Chloride Carbon Dioxide BUN Creatinine Glucose POC Glucose 268 H Lactic Acid Calcium Phosphorus Ferritin AST Ammonia Lactate Dehydrogenase Total Creatine Kinase CK-MB (CK-2) Troponin T C-Reactive Protein Albumin Triglycerides HDL Cholesterol TSH Free T4 Arterial Blood Glucose Arterial Blood Ionized Calcium Urine WBC (Auto) Salicylates Acetaminophen Coronavirus (PCR) 09/23/20 09/23/20 09/23/20 10:03 10:03 10:03 WBC Hgb MCV MCH MCHC RDW Lymph % (Auto) Lymph # (Auto) Seg Neutrophils % Seg Neutrophils # PT INR APTT D-Dimer Heparin Anti-Xa Level 0.12 L ABG pH POC ABG pCO2 POC ABG pO2 ABG pO2 ABG HCO3 ABG O2 Saturation ABG Base Excess ABG Hemoglobin ABG Oxyhemoglobin ABG Sodium ABG Potassium ABG Chloride ABG Glucose Oxyhemoglobin Carboxyhemoglobin Sodium Potassium Chloride Carbon Dioxide BUN 26 H Creatinine Glucose 271 H POC Glucose Lactic Acid Calcium 8.2 L D Phosphorus Ferritin 1084.0 H AST Ammonia Lactate Dehydrogenase 1592 H Total Creatine Kinase CK-MB (CK-2) Troponin T C-Reactive Protein 9.10 H Albumin Triglycerides HDL Cholesterol TSH Free T4 Arterial Blood Glucose Arterial Blood Ionized Calcium Urine WBC (Auto) Salicylates Acetaminophen Coronavirus (PCR) 09/23/20 09/23/20 09/23/20 12:17 18:30 20:01 WBC Hgb MCV MCH MCHC RDW Lymph % (Auto) Lymph # (Auto) Seg Neutrophils % Seg Neutrophils # PT INR APTT D-Dimer Heparin Anti-Xa Level 0.15 L ABG pH POC ABG pCO2 POC ABG pO2 ABG pO2 ABG HCO3 ABG O2 Saturation ABG Base Excess ABG Hemoglobin ABG Oxyhemoglobin ABG Sodium ABG Potassium ABG Chloride ABG Glucose Oxyhemoglobin Carboxyhemoglobin Sodium Potassium Chloride Carbon Dioxide BUN Creatinine Glucose POC Glucose 282 H 392 H Lactic Acid Calcium Phosphorus Ferritin AST Ammonia Lactate Dehydrogenase Total Creatine Kinase CK-MB (CK-2) Troponin T C-Reactive Protein Albumin Triglycerides HDL Cholesterol TSH Free T4 Arterial Blood Glucose Arterial Blood Ionized Calcium Urine WBC (Auto) Salicylates Acetaminophen Coronavirus (PCR) 09/23/20 09/23/20 09/24/20 21:08 23:58 04:00 WBC Hgb MCV MCH MCHC RDW Lymph % (Auto) Lymph # (Auto) Seg Neutrophils % Seg Neutrophils # PT INR APTT D-Dimer Heparin Anti-Xa Level ABG pH POC ABG pCO2 55.6 H POC ABG pO2 75.6 L ABG pO2 ABG HCO3 ABG O2 Saturation ABG Base Excess ABG Hemoglobin ABG Oxyhemoglobin ABG Sodium 135.9 L ABG Potassium ABG Chloride ABG Glucose 330 H Oxyhemoglobin Carboxyhemoglobin Sodium Potassium Chloride Carbon Dioxide BUN Creatinine Glucose POC Glucose 373 H 391 H Lactic Acid Calcium Phosphorus Ferritin AST Ammonia Lactate Dehydrogenase Total Creatine Kinase CK-MB (CK-2) Troponin T C-Reactive Protein Albumin Triglycerides HDL Cholesterol TSH Free T4 Arterial Blood Glucose 330 H Arterial Blood Ionized Calcium 4.4 L Urine WBC (Auto) Salicylates Acetaminophen Coronavirus (PCR) 09/24/20 09/24/20 09/24/20 04:30 04:30 05:04 WBC 12.4 H Hgb MCV MCH MCHC RDW Lymph % (Auto) Lymph # (Auto) Seg Neutrophils % Seg Neutrophils # PT INR APTT D-Dimer Heparin Anti-Xa Level ABG pH POC ABG pCO2 POC ABG pO2 ABG pO2 ABG HCO3 ABG O2 Saturation ABG Base Excess ABG Hemoglobin ABG Oxyhemoglobin ABG Sodium ABG Potassium ABG Chloride ABG Glucose Oxyhemoglobin Carboxyhemoglobin Sodium Potassium Chloride Carbon Dioxide BUN 25 H Creatinine Glucose 337 H POC Glucose 316 H Lactic Acid Calcium 8.0 L Phosphorus Ferritin AST Ammonia Lactate Dehydrogenase Total Creatine Kinase CK-MB (CK-2) Troponin T C-Reactive Protein Albumin Triglycerides HDL Cholesterol TSH Free T4 Arterial Blood Glucose Arterial Blood Ionized Calcium Urine WBC (Auto) Salicylates Acetaminophen Coronavirus (PCR) 09/24/20 09/24/20 09/24/20 11:41 17:32 23:41 WBC Hgb MCV MCH MCHC RDW Lymph % (Auto) Lymph # (Auto) Seg Neutrophils % Seg Neutrophils # PT INR APTT D-Dimer Heparin Anti-Xa Level ABG pH POC ABG pCO2 POC ABG pO2 ABG pO2 ABG HCO3 ABG O2 Saturation ABG Base Excess ABG Hemoglobin ABG Oxyhemoglobin ABG Sodium ABG Potassium ABG Chloride ABG Glucose Oxyhemoglobin Carboxyhemoglobin Sodium Potassium Chloride Carbon Dioxide BUN Creatinine Glucose POC Glucose 240 H 271 H 349 H Lactic Acid Calcium Phosphorus Ferritin AST Ammonia Lactate Dehydrogenase Total Creatine Kinase CK-MB (CK-2) Troponin T C-Reactive Protein Albumin Triglycerides HDL Cholesterol TSH Free T4 Arterial Blood Glucose Arterial Blood Ionized Calcium Urine WBC (Auto) Salicylates Acetaminophen Coronavirus (PCR) 09/25/20 09/25/20 09/25/20 05:11 09:43 09:43 WBC Hgb MCV MCH MCHC RDW 15.4 H Lymph % (Auto) Lymph # (Auto) Seg Neutrophils % Seg Neutrophils # PT INR APTT D-Dimer 1481.03 H Heparin Anti-Xa Level ABG pH POC ABG pCO2 POC ABG pO2 ABG pO2 ABG HCO3 ABG O2 Saturation ABG Base Excess ABG Hemoglobin ABG Oxyhemoglobin ABG Sodium ABG Potassium ABG Chloride ABG Glucose Oxyhemoglobin Carboxyhemoglobin Sodium Potassium Chloride Carbon Dioxide BUN Creatinine Glucose POC Glucose 319 H Lactic Acid Calcium Phosphorus Ferritin AST Ammonia Lactate Dehydrogenase Total Creatine Kinase CK-MB (CK-2) Troponin T C-Reactive Protein Albumin Triglycerides HDL Cholesterol TSH Free T4 Arterial Blood Glucose Arterial Blood Ionized Calcium Urine WBC (Auto) Salicylates Acetaminophen Coronavirus (PCR) 09/25/20 09/25/20 09/25/20 09:43 09:43 09:43 WBC Hgb MCV MCH MCHC RDW Lymph % (Auto) Lymph # (Auto) Seg Neutrophils % Seg Neutrophils # PT INR APTT D-Dimer Heparin Anti-Xa Level 0.10 L ABG pH POC ABG pCO2 POC ABG pO2 ABG pO2 ABG HCO3 ABG O2 Saturation ABG Base Excess ABG Hemoglobin ABG Oxyhemoglobin ABG Sodium ABG Potassium ABG Chloride ABG Glucose Oxyhemoglobin Carboxyhemoglobin Sodium Potassium Chloride Carbon Dioxide 33 H BUN 26 H Creatinine Glucose 306 H POC Glucose Lactic Acid Calcium 8.1 L Phosphorus Ferritin 670.5 H AST Ammonia Lactate Dehydrogenase 948 H Total Creatine Kinase CK-MB (CK-2) Troponin T C-Reactive Protein 6.70 H Albumin Triglycerides HDL Cholesterol TSH Free T4 Arterial Blood Glucose Arterial Blood Ionized Calcium Urine WBC (Auto) Salicylates Acetaminophen Coronavirus (PCR) 09/25/20 09/25/20 09/25/20 11:52 13:38 17:37 WBC Hgb MCV MCH MCHC RDW Lymph % (Auto) Lymph # (Auto) Seg Neutrophils % Seg Neutrophils # PT INR APTT D-Dimer Heparin Anti-Xa Level ABG pH POC ABG pCO2 60.9 H POC ABG pO2 59.7 L ABG pO2 ABG HCO3 ABG O2 Saturation ABG Base Excess ABG Hemoglobin ABG Oxyhemoglobin 90.2 L ABG Sodium ABG Potassium ABG Chloride ABG Glucose 336 H Oxyhemoglobin Carboxyhemoglobin Sodium Potassium Chloride Carbon Dioxide BUN Creatinine Glucose POC Glucose 313 H 379 H Lactic Acid Calcium Phosphorus Ferritin AST Ammonia Lactate Dehydrogenase Total Creatine Kinase CK-MB (CK-2) Troponin T C-Reactive Protein Albumin Triglycerides HDL Cholesterol TSH Free T4 Arterial Blood Glucose 336 H Arterial Blood Ionized Calcium 4.4 L Urine WBC (Auto) Salicylates Acetaminophen Coronavirus (PCR) 09/25/20 09/25/20 09/26/20 20:52 23:23 00:32 WBC Hgb MCV MCH MCHC RDW Lymph % (Auto) Lymph # (Auto) Seg Neutrophils % Seg Neutrophils # PT INR APTT D-Dimer Heparin Anti-Xa Level 0.10 L ABG pH POC ABG pCO2 POC ABG pO2 ABG pO2 ABG HCO3 ABG O2 Saturation ABG Base Excess ABG Hemoglobin ABG Oxyhemoglobin ABG Sodium ABG Potassium ABG Chloride ABG Glucose Oxyhemoglobin Carboxyhemoglobin Sodium Potassium Chloride Carbon Dioxide BUN Creatinine Glucose POC Glucose 387 H 269 H Lactic Acid Calcium Phosphorus Ferritin AST Ammonia Lactate Dehydrogenase Total Creatine Kinase CK-MB (CK-2) Troponin T C-Reactive Protein Albumin Triglycerides HDL Cholesterol TSH Free T4 Arterial Blood Glucose Arterial Blood Ionized Calcium Urine WBC (Auto) Salicylates Acetaminophen Coronavirus (PCR) 09/26/20 09/26/20 09/26/20 02:23 02:23 03:53 WBC 11.4 H Hgb MCV MCH MCHC RDW Lymph % (Auto) Lymph # (Auto) Seg Neutrophils % Seg Neutrophils # PT INR APTT D-Dimer Heparin Anti-Xa Level ABG pH POC ABG pCO2 58.5 H POC ABG pO2 69.5 L ABG pO2 ABG HCO3 ABG O2 Saturation ABG Base Excess ABG Hemoglobin ABG Oxyhemoglobin 93.5 L ABG Sodium ABG Potassium ABG Chloride ABG Glucose 272 H Oxyhemoglobin Carboxyhemoglobin Sodium Potassium Chloride Carbon Dioxide 33 H BUN 27 H Creatinine Glucose 316 H POC Glucose Lactic Acid Calcium 7.9 L Phosphorus 2.20 L Ferritin AST Ammonia Lactate Dehydrogenase Total Creatine Kinase CK-MB (CK-2) Troponin T C-Reactive Protein Albumin Triglycerides HDL Cholesterol TSH Free T4 Arterial Blood Glucose 272 H Arterial Blood Ionized Calcium 4.3 L Urine WBC (Auto) Salicylates Acetaminophen Coronavirus (PCR) 09/26/20 09/26/20 09/26/20 05:43 05:43 11:57 WBC Hgb MCV MCH MCHC RDW Lymph % (Auto) Lymph # (Auto) Seg Neutrophils % Seg Neutrophils # PT INR APTT D-Dimer Heparin Anti-Xa Level 0.15 L ABG pH POC ABG pCO2 POC ABG pO2 ABG pO2 ABG HCO3 ABG O2 Saturation ABG Base Excess ABG Hemoglobin ABG Oxyhemoglobin ABG Sodium ABG Potassium ABG Chloride ABG Glucose Oxyhemoglobin Carboxyhemoglobin Sodium Potassium Chloride Carbon Dioxide BUN Creatinine Glucose POC Glucose 277 H 345 H Lactic Acid Calcium Phosphorus Ferritin AST Ammonia Lactate Dehydrogenase Total Creatine Kinase CK-MB (CK-2) Troponin T C-Reactive Protein Albumin Triglycerides HDL Cholesterol TSH Free T4 Arterial Blood Glucose Arterial Blood Ionized Calcium Urine WBC (Auto) Salicylates Acetaminophen Coronavirus (PCR) 09/26/20 09/26/20 09/26/20 13:17 17:53 23:45 WBC Hgb MCV MCH MCHC RDW Lymph % (Auto) Lymph # (Auto) Seg Neutrophils % Seg Neutrophils # PT INR APTT D-Dimer Heparin Anti-Xa Level ABG pH POC ABG pCO2 POC ABG pO2 ABG pO2 ABG HCO3 ABG O2 Saturation ABG Base Excess ABG Hemoglobin ABG Oxyhemoglobin ABG Sodium ABG Potassium ABG Chloride ABG Glucose Oxyhemoglobin Carboxyhemoglobin Sodium Potassium Chloride Carbon Dioxide BUN Creatinine Glucose POC Glucose 292 H 331 H Lactic Acid 2.50 H* Calcium Phosphorus Ferritin AST Ammonia Lactate Dehydrogenase Total Creatine Kinase CK-MB (CK-2) Troponin T C-Reactive Protein Albumin Triglycerides HDL Cholesterol TSH Free T4 Arterial Blood Glucose Arterial Blood Ionized Calcium Urine WBC (Auto) Salicylates Acetaminophen Coronavirus (PCR) 09/27/20 09/27/2021 03:03 04:47 04:47 WBC 11.8 H Hgb MCV MCH 33 H MCHC RDW 15.3 H Lymph % (Auto) Lymph # (Auto) Seg Neutrophils % Seg Neutrophils # PT INR APTT D-Dimer Heparin Anti-Xa Level ABG pH POC ABG pCO2 61.3 H POC ABG pO2 80.6 L ABG pO2 ABG HCO3 ABG O2 Saturation ABG Base Excess ABG Hemoglobin ABG Oxyhemoglobin ABG Sodium ABG Potassium 4.6 H ABG Chloride ABG Glucose 358 H Oxyhemoglobin Carboxyhemoglobin Sodium Potassium Chloride Carbon Dioxide 34 H BUN 31 H Creatinine Glucose 330 H POC Glucose Lactic Acid Calcium 8.0 L Phosphorus Ferritin AST Ammonia Lactate Dehydrogenase Total Creatine Kinase CK-MB (CK-2) Troponin T C-Reactive Protein Albumin Triglycerides HDL Cholesterol TSH Free T4 Arterial Blood Glucose 358 H Arterial Blood Ionized Calcium 4.2 L Urine WBC (Auto) Salicylates Acetaminophen Coronavirus (PCR) 09/27/20 09/27/20 09/27/20 04:47 05:15 12:29 WBC Hgb MCV MCH MCHC RDW Lymph % (Auto) Lymph # (Auto) Seg Neutrophils % Seg Neutrophils # PT INR APTT D-Dimer Heparin Anti-Xa Level < 0.10 L ABG pH POC ABG pCO2 POC ABG pO2 ABG pO2 ABG HCO3 ABG O2 Saturation ABG Base Excess ABG Hemoglobin ABG Oxyhemoglobin ABG Sodium ABG Potassium ABG Chloride ABG Glucose Oxyhemoglobin Carboxyhemoglobin Sodium Potassium Chloride Carbon Dioxide BUN Creatinine Glucose POC Glucose 303 H 310 H Lactic Acid Calcium Phosphorus Ferritin AST Ammonia Lactate Dehydrogenase Total Creatine Kinase CK-MB (CK-2) Troponin T C-Reactive Protein Albumin Triglycerides HDL Cholesterol TSH Free T4 Arterial Blood Glucose Arterial Blood Ionized Calcium Urine WBC (Auto) Salicylates Acetaminophen Coronavirus (PCR) 09/27/20 09/27/20 09/28/20 17:06 23:05 04:00 WBC Hgb MCV MCH MCHC RDW Lymph % (Auto) Lymph # (Auto) Seg Neutrophils % Seg Neutrophils # PT INR APTT D-Dimer Heparin Anti-Xa Level ABG pH POC ABG pCO2 63.5 H POC ABG pO2 76.9 L ABG pO2 ABG HCO3 ABG O2 Saturation ABG Base Excess ABG Hemoglobin ABG Oxyhemoglobin ABG Sodium ABG Potassium ABG Chloride ABG Glucose 228 H Oxyhemoglobin Carboxyhemoglobin 0.4 L Sodium Potassium Chloride Carbon Dioxide BUN Creatinine Glucose POC Glucose 277 H 261 H Lactic Acid Calcium Phosphorus Ferritin AST Ammonia Lactate Dehydrogenase Total Creatine Kinase CK-MB (CK-2) Troponin T C-Reactive Protein Albumin Triglycerides HDL Cholesterol TSH Free T4 Arterial Blood Glucose 228 H Arterial Blood Ionized Calcium Urine WBC (Auto) Salicylates Acetaminophen Coronavirus (PCR) 09/28/20 09/28/20 09/28/20 05:33 05:44 05:44 WBC 11.3 H Hgb MCV MCH MCHC RDW 15.6 H Lymph % (Auto) Lymph # (Auto) Seg Neutrophils % Seg Neutrophils # PT INR APTT D-Dimer Heparin Anti-Xa Level ABG pH POC ABG pCO2 POC ABG pO2 ABG pO2 ABG HCO3 ABG O2 Saturation ABG Base Excess ABG Hemoglobin ABG Oxyhemoglobin ABG Sodium ABG Potassium ABG Chloride ABG Glucose Oxyhemoglobin Carboxyhemoglobin Sodium 148 H Potassium Chloride Carbon Dioxide 38 H BUN 30 H Creatinine 0.5 L Glucose 192 H POC Glucose 206 H Lactic Acid Calcium Phosphorus Ferritin AST Ammonia Lactate Dehydrogenase Total Creatine Kinase CK-MB (CK-2) Troponin T C-Reactive Protein Albumin Triglycerides HDL Cholesterol TSH Free T4 Arterial Blood Glucose Arterial Blood Ionized Calcium Urine WBC (Auto) Salicylates Acetaminophen Coronavirus (PCR) 09/28/20 09/28/20 09/28/20 11:30 14:10 14:10 WBC Hgb MCV MCH MCHC RDW Lymph % (Auto) Lymph # (Auto) Seg Neutrophils % Seg Neutrophils # PT INR APTT D-Dimer 4603.21 H Heparin Anti-Xa Level ABG pH POC ABG pCO2 POC ABG pO2 ABG pO2 ABG HCO3 ABG O2 Saturation ABG Base Excess ABG Hemoglobin ABG Oxyhemoglobin ABG Sodium ABG Potassium ABG Chloride ABG Glucose Oxyhemoglobin Carboxyhemoglobin Sodium Potassium Chloride Carbon Dioxide BUN Creatinine Glucose POC Glucose 235 H Lactic Acid Calcium Phosphorus Ferritin 530.1 H AST Ammonia Lactate Dehydrogenase Total Creatine Kinase CK-MB (CK-2) Troponin T C-Reactive Protein Albumin Triglycerides HDL Cholesterol TSH Free T4 Arterial Blood Glucose Arterial Blood Ionized Calcium Urine WBC (Auto) Salicylates Acetaminophen Coronavirus (PCR) 09/28/20 09/28/20 09/28/20 14:10 16:55 23:08 WBC Hgb MCV MCH MCHC RDW Lymph % (Auto) Lymph # (Auto) Seg Neutrophils % Seg Neutrophils # PT INR APTT D-Dimer Heparin Anti-Xa Level ABG pH POC ABG pCO2 POC ABG pO2 ABG pO2 ABG HCO3 ABG O2 Saturation ABG Base Excess ABG Hemoglobin ABG Oxyhemoglobin ABG Sodium ABG Potassium ABG Chloride ABG Glucose Oxyhemoglobin Carboxyhemoglobin Sodium Potassium Chloride Carbon Dioxide BUN Creatinine Glucose POC Glucose 261 H 219 H Lactic Acid Calcium Phosphorus Ferritin AST Ammonia Lactate Dehydrogenase 648 H Total Creatine Kinase CK-MB (CK-2) Troponin T C-Reactive Protein Albumin Triglycerides HDL Cholesterol TSH Free T4 Arterial Blood Glucose Arterial Blood Ionized Calcium Urine WBC (Auto) Salicylates Acetaminophen Coronavirus (PCR) 09/29/20 09/29/20 09/29/20 02:50 05:39 07:52 WBC 15.1 H Hgb MCV 99 H MCH MCHC RDW 15.7 H Lymph % (Auto) Lymph # (Auto) Seg Neutrophils % Seg Neutrophils # PT INR APTT D-Dimer Heparin Anti-Xa Level ABG pH 7.335 L POC ABG pCO2 POC ABG pO2 ABG pO2 63.6 L ABG HCO3 38.9 H ABG O2 Saturation 91.9 L ABG Base Excess 10.4 H ABG Hemoglobin 11.9 L ABG Oxyhemoglobin ABG Sodium ABG Potassium ABG Chloride ABG Glucose Oxyhemoglobin 90.1 L Carboxyhemoglobin Sodium Potassium Chloride Carbon Dioxide BUN Creatinine Glucose POC Glucose 248 H Lactic Acid Calcium Phosphorus Ferritin AST Ammonia Lactate Dehydrogenase Total Creatine Kinase CK-MB (CK-2) Troponin T C-Reactive Protein Albumin Triglycerides HDL Cholesterol TSH Free T4 Arterial Blood Glucose Arterial Blood Ionized Calcium Urine WBC (Auto) Salicylates Acetaminophen Coronavirus (PCR) 09/29/20 09/29/20 07:52 11:46 WBC Hgb MCV MCH MCHC RDW Lymph % (Auto) Lymph # (Auto) Seg Neutrophils % Seg Neutrophils # PT INR APTT D-Dimer Heparin Anti-Xa Level ABG pH POC ABG pCO2 POC ABG pO2 ABG pO2 ABG HCO3 ABG O2 Saturation ABG Base Excess ABG Hemoglobin ABG Oxyhemoglobin ABG Sodium ABG Potassium ABG Chloride ABG Glucose Oxyhemoglobin Carboxyhemoglobin Sodium Potassium 5.6 H D Chloride Carbon Dioxide 33 H BUN 40 H Creatinine Glucose 238 H POC Glucose 238 H Lactic Acid Calcium 8.2 L Phosphorus Ferritin AST Ammonia Lactate Dehydrogenase Total Creatine Kinase CK-MB (CK-2) Troponin T C-Reactive Protein Albumin Triglycerides HDL Cholesterol TSH Free T4 Arterial Blood Glucose Arterial Blood Ionized Calcium Urine WBC (Auto) Salicylates Acetaminophen Coronavirus (PCR) Chest x-ray: image reviewed (stable bilateral infiltrate) Allied health notes reviewed: nursing
--- NOTE | 2020-09-29 12:45 | Vascular Lab Report ---
DUPLEX DOPPLER LOWER EXTREMITY VEINS, BILATERAL INDICATION: Bilateral lower extremity swelling. TECHNIQUE: Duplex doppler imaging was performed through the veins of both lower extremities using ve nous compression and other maneuvers. COMPARISON: No relevant prior imaging study available. FINDINGS: Right Common femoral vein: Negative. Right Superficial femoral vein: Negative. Right Popliteal vein: Negative. Right Calf veins: Negative. Left Common femoral vein: Negative. Left Superficial femoral vein: Negative. Left Popliteal vein: Negative. Left Calf veins: Negative. Additional findings: None. IMPRESSION: No sonographic evidence for DVT in either lower extremity. Signer Name: Zak Lyles Jr, MD Signed: 09/29/2020 12:40 PM Workstation Name: [id number]
[2020-09-29] MEDS ORDERED: VANCOMYCIN 1,250 MG in SODIUM CHLORIDE 0.9% 500 ML 500 ML IV ONE (12:53)
--- NOTE | 2020-09-29 12:54 | Progress Note ---
Assessment and Plan Cultures: Blood culture no growth so far COVID-19 PCR positive 09/27/2020 sputum culture: In process A/P: 54-year-old female past medical history bipolar, hypothyroidism, hypertension, diabetes now with: #New onset sepsis: Worsening leukocytosis, fever. DVT scan negative. Chest x- ray with stable bilateral pneumonia. #Acute hypoxic respiratory failure: Remains on the ventilator 90%, PEEP 18. #Critical COVID-19 pneumonia: PCR positive. #Drug overdose: With trazodone Recs: -Completed Remdesivir, steroids -New fever, work-up ordered: Blood, sputum and urine cultures ordered, crp and procal also ordered -Empiric cefepime, vancomycin ordered Hermann Ochoa MD, FACP [facility] ([facility] O: [phone] F: [phone] Subjective Date of service: 09/29/20 Principal diagnosis: Ac encephalopathy; CAP; Sepsis; COVID-19 infxn; Ac hypoxemic resp failure Interval history: Febrile with T-max of 101.5 F. Remains intubated, on the vent. Objective - Exam Narrative Exam: Physical Exam (reviewed in chart to minimize risk of transmission) Constitutional: deferred Head, Ears, Nose: deferred Eyes: deferred Neck: deferred Oral: deferred Cardiovascular: deferred Respiratory: deferred GI: deferred Musculoskeletal: deferred Skin: deferred Hem/Lymphatic: deferred Psych: deferred Neurological: deferred - Constitutional Vitals: Vital Signs Temp Pulse Resp BP Pulse Ox 101.5 F H 112 H 18 94/53 88 09/29/20 12:00 09/29/20 08:48 09/29/20 08:48 09/29/20 08:45 09/29/20 08:48 Temperature -Last 24 Hours Temperature 101.5 F Temperature 100.4 F Temperature 99.7 F Temperature 97.9 F Temperature 98.8 F Temperature 98.0 F Temperature 98.1 F Temperature 98.8 F Temperature 99.7 F - Labs CBC & Chem 7: 09/29/20 07:52 09/29/20 07:52 Labs: Abnormal lab results 09/28/20 09/28/20 09/28/20 Range/Units 14:10 14:10 14:10 WBC (4.5-11.0) K/mm3 MCV (79-97) fl RDW (13.2-15.2) % D-Dimer 4603.21 H (0-234) ng/mlDDU ABG pH (7.350-7.450) pH Units ABG pO2 (80.0-90.0) mm Hg ABG HCO3 (20.0-26.0) mmol/L ABG O2 Saturation (95.0-99.0) % ABG Base Excess (-2.0-3.0) mmol/L ABG Hemoglobin (12.0-16.0) gm/dl Oxyhemoglobin (95.0-99.0) % Potassium (3.6-5.0) mmol/L Carbon Dioxide (22-30) mmol/L BUN (7-17) mg/dL Glucose (65-100) mg/dL POC Glucose (70-105) mg/dL Calcium (8.4-10.2) mg/dL Ferritin 530.1 H (10.0-200.0) ng/mL Lactate Dehydrogenase 648 H (91-180) units/L 09/28/20 09/28/20 09/29/20 Range/Units 16:55 23:08 02:50 WBC (4.5-11.0) K/mm3 MCV (79-97) fl RDW (13.2-15.2) % D-Dimer (0-234) ng/mlDDU ABG pH 7.335 L (7.350-7.450) pH Units ABG pO2 63.6 L (80.0-90.0) mm Hg ABG HCO3 38.9 H (20.0-26.0) mmol/L ABG O2 Saturation 91.9 L (95.0-99.0) % ABG Base Excess 10.4 H (-2.0-3.0) mmol/L ABG Hemoglobin 11.9 L (12.0-16.0) gm/dl Oxyhemoglobin 90.1 L (95.0-99.0) % Potassium (3.6-5.0) mmol/L Carbon Dioxide (22-30) mmol/L BUN (7-17) mg/dL Glucose (65-100) mg/dL POC Glucose 261 H 219 H (70-105) mg/dL Calcium (8.4-10.2) mg/dL Ferritin (10.0-200.0) ng/mL Lactate Dehydrogenase (91-180) units/L 09/29/20 09/29/20 09/29/20 Range/Units 05:39 07:52 07:52 WBC 15.1 H (4.5-11.0) K/mm3 MCV 99 H (79-97) fl RDW 15.7 H (13.2-15.2) % D-Dimer (0-234) ng/mlDDU ABG pH (7.350-7.450) pH Units ABG pO2 (80.0-90.0) mm Hg ABG HCO3 (20.0-26.0) mmol/L ABG O2 Saturation (95.0-99.0) % ABG Base Excess (-2.0-3.0) mmol/L ABG Hemoglobin (12.0-16.0) gm/dl Oxyhemoglobin (95.0-99.0) % Potassium 5.6 H D (3.6-5.0) mmol/L Carbon Dioxide 33 H (22-30) mmol/L BUN 40 H (7-17) mg/dL Glucose 238 H (65-100) mg/dL POC Glucose 248 H (70-105) mg/dL Calcium 8.2 L (8.4-10.2) mg/dL Ferritin (10.0-200.0) ng/mL Lactate Dehydrogenase (91-180) units/L 09/29/20 Range/Units 11:46 WBC (4.5-11.0) K/mm3 MCV (79-97) fl RDW (13.2-15.2) % D-Dimer (0-234) ng/mlDDU ABG pH (7.350-7.450) pH Units ABG pO2 (80.0-90.0) mm Hg ABG HCO3 (20.0-26.0) mmol/L ABG O2 Saturation (95.0-99.0) % ABG Base Excess (-2.0-3.0) mmol/L ABG Hemoglobin (12.0-16.0) gm/dl Oxyhemoglobin (95.0-99.0) % Potassium (3.6-5.0) mmol/L Carbon Dioxide (22-30) mmol/L BUN (7-17) mg/dL Glucose (65-100) mg/dL POC Glucose 238 H (70-105) mg/dL Calcium (8.4-10.2) mg/dL Ferritin (10.0-200.0) ng/mL Lactate Dehydrogenase (91-180) units/L
[2020-09-29] MEDS ORDERED: VANCOMYCIN PHARMACY TO DOSE IV SCH (13:00)
[2020-09-29] MEDS ORDERED: HEPARIN 10,000 UNITS/10 ML VIAL IV PRN (13:12)
[2020-09-29] MEDS: fentaNYL DRIP Premix 2,000 MCG/100 ML BAG IV SCH (13:32)
[2020-09-29] MEDS: CEFEPIME/NS 2 GM/100 ML 2 GM/100 ML BAG IV SCH ×2 (13:34→22:29)
[2020-09-29] MEDS: HEPARIN/ 0.45% NACL DRIP 25,000 UNIT/500 ML BAG IV SCH (13:38)
[2020-09-29] MEDS: ASCORBIC ACID 500 MG TAB PO SCH ×2 (13:42→21:46)
[2020-09-29] MEDS: CLOPIDOGREL 75 MG TAB PO SCH (13:42)
[2020-09-29] MEDS: ASPIRIN 81 MG TAB CHEW PO SCH (13:42)
[2020-09-29] MEDS: FAMOTIDINE 20 MG TAB PO SCH ×2 (13:43→21:46)
[2020-09-29] MEDS: CHOLECALCIFEROL (VIT D3) 5,000 UNIT TAB PO SCH (13:43)
[2020-09-29] MEDS: SERTRALINE 25 MG TAB PO SCH (13:43)
--- NOTE | 2020-09-29 13:54 | Progress Note ---
Assessment and Plan Patient admitted with respiratory failure due to Covid pneumonia, with worsening, bilateral dense infiltrates of acute bilateral pneumonia on chest x- ray. Currently unresponsive, on the vent in the ICU on supportive management. Clinical course complicated by the development of an acute non-ST elevation myocardial infarction evident on the ECG and elevated troponin. Recommendations: The patient is not a candidate for aggressive and invasive cardiac therapies, in the setting of respiratory failure due to severe viral pneumonia and sepsis. Continue aggressive medical therapy including heparin drip, topical nitrates, beta-blockers, aspirin and Plavix. Echocardiogram shows relatively well-preserved left ventricular systolic function. Prognosis is poor in the setting of severe respiratory failure due to severe viral pneumonia and intercurrent acute non-ST elevation infarct. Subjective Date of service: 09/29/20 Principal diagnosis: Ac encephalopathy; CAP; Sepsis; COVID-19 infxn; Ac hypoxemic resp failure Interval history: Patient is unresponsive, on the vent. Stable sinus rhythm on monitor and storage bin tender, stable hemodynamics. Objective Vital Signs Temp Pulse Pulse Resp BP Pulse Ox 09/29/20 13:44 120 H 104/69 09/29/20 13:43 121 H 104/69 09/29/20 13:15 126 H 19 110/61 92 09/29/20 13:08 124 H 110/62 92 09/29/20 13:00 126 H 16 110/62 91 09/29/20 12:45 126 H 17 114/66 92 09/29/20 12:30 126 H 15 104/62 92 09/29/20 12:15 125 H 18 108/66 92 09/29/20 12:00 101.5 F H 125 H 18 103/63 91 09/29/20 11:45 124 H 18 98/61 91 09/29/20 11:30 123 H 17 94/63 90 09/29/20 11:15 122 H 18 99/66 91 09/29/20 11:00 121 H 18 100/66 92 09/29/20 10:45 120 H 16 100/61 90 09/29/20 10:30 119 H 18 101/64 91 09/29/20 10:15 117 H 18 97/64 90 09/29/20 10:00 115 H 18 87/59 89 09/29/20 09:45 115 H 17 93/66 90 09/29/20 09:30 115 H 15 101/59 89 09/29/20 09:15 113 H 19 92/63 89 09/29/20 09:00 112 H 18 96/65 89 09/29/20 08:48 112 H 18 88 09/29/20 08:45 113 H 18 94/53 88 09/29/20 08:30 110 H 17 92/55 88 09/29/20 08:15 110 H 17 100/55 88 09/29/20 08:00 100.4 F H 108 H 18 91/64 88 09/29/20 07:45 105 H 18 89/58 86 09/29/20 07:30 102 H 17 98/58 84 09/29/20 07:22 102 H 100/60 87 09/29/20 07:15 105 H 18 100/60 88 09/29/20 07:00 99.7 F H 104 H 17 95/61 88 09/29/20 06:45 103 H 17 97/60 87 09/29/20 06:30 102 H 18 98/56 88 09/29/20 06:15 102 H 17 102/57 86 09/29/20 06:00 102 H 18 104/66 88 09/29/20 05:45 101 H 18 109/63 88 09/29/20 05:30 90 18 87/53 83 L 09/29/20 05:15 23 102/60 89 09/29/20 05:07 104 H 102/60 09/29/20 05:06 104 H 102/60 09/29/20 05:00 104 H 18 102/60 88 09/29/20 04:45 104 H 18 117/59 89 09/29/20 04:36 104 H 110/61 89 09/29/20 04:30 105 H 18 110/61 89 09/29/20 04:15 104 H 18 113/60 89 09/29/20 04:00 97.9 F 101 H 105 H 18 115/58 88 09/29/20 03:45 104 H 18 106/59 87 09/29/20 03:30 106 H 18 105/61 88 09/29/20 03:15 106 H 17 119/62 88 09/29/20 03:00 105 H 15 121/61 89 09/29/20 02:45 105 H 18 117/62 87 09/29/20 02:30 106 H 18 112/63 87 09/29/20 02:15 104 H 18 110/60 89 09/29/20 02:00 105 H 20 109/67 89 09/29/20 01:45 105 H 19 109/67 90 09/29/20 01:30 105 H 18 112/67 92 09/29/20 01:15 107 H 18 120/64 91 09/29/20 01:02 89 09/29/20 01:00 108 H 18 117/54 89 09/29/20 00:45 100 H 18 113/56 89 09/29/20 00:30 105 H 17 118/62 89 09/29/20 00:15 105 H 18 110/62 89 09/29/20 00:00 98.8 F 105 H 105 H 17 109/67 89 09/28/20 23:45 106 H 20 115/63 89 09/28/20 23:30 105 H 17 116/64 91 09/28/20 23:15 101 H 19 112/64 90 09/28/20 23:00 99 H 18 116/61 92 09/28/20 22:45 96 H 18 115/59 90 09/28/20 22:30 96 H 16 116/61 91 09/28/20 22:15 98 H 20 142/76 90 09/28/20 22:07 116 H 142/76 09/28/20 22:05 117 H 142/76 09/28/20 22:00 117 H 19 142/76 91 09/28/20 21:45 112 H 16 129/63 92 09/28/20 21:30 113 H 20 124/64 92 09/28/20 21:15 112 H 18 127/71 91 09/28/20 21:00 98.0 F 110 H 18 122/63 92 09/28/20 20:45 110 H 17 123/63 91 09/28/20 20:30 109 H 18 130/62 92 09/28/20 20:15 111 H 17 125/62 92 09/28/20 20:00 98.1 F 107 H 105 H 17 105/59 90 09/28/20 19:51 114 H 122/62 93 09/28/20 19:45 115 H 14 122/62 92 09/28/20 19:30 114 H 14 122/68 93 09/28/20 19:15 111 H 18 124/66 93 09/28/20 19:00 112 H 15 115/68 94 09/28/20 18:45 112 H 17 125/70 93 09/28/20 18:34 111 H 18 123/71 93 09/28/20 18:30 111 H 18 123/71 93 09/28/20 18:26 112 H 15 120/66 93 09/28/20 18:15 111 H 20 106/67 94 09/28/20 18:00 110 H 17 118/65 93 09/28/20 17:45 108 H 19 117/67 94 09/28/20 17:30 108 H 18 120/69 93 09/28/20 17:15 117 H 17 128/70 92 09/28/20 17:12 116 H 120/66 09/28/20 17:11 114 H 120/66 09/28/20 17:00 114 H 15 120/66 92 09/28/20 16:45 115 H 16 114/68 92 09/28/20 16:30 113 H 15 124/63 93 09/28/20 16:15 113 H 19 108/66 93 09/28/20 16:05 115 H 115 H 15 92 09/28/20 16:00 98.8 F 113 H 18 103/67 93 09/28/20 15:45 113 H 18 123/65 93 09/28/20 15:38 113 H 124/65 93 09/28/20 15:30 113 H 16 124/65 92 09/28/20 15:15 112 H 18 118/66 93 09/28/20 15:00 111 H 17 113/62 92 09/28/20 14:45 113 H 14 118/65 91 09/28/20 14:30 113 H 15 117/68 91 09/28/20 14:15 112 H 17 124/66 91 09/28/20 14:00 113 H 16 115/67 91 - Physical Examination Narrative exam: Full physical exam is deferred due to the patient's active COVID-19 positive status. General: Other (Unresponsive, on the vent) HEENT: Positive: Other (Pupils fixed) Neck: Positive: neck supple Neuro: Positive: Other (Patient is unresponsive, on the vent) Abdomen: Positive: Soft Skin: Positive: Clear Extremities: Absent: edema - Labs and Meds Cardiac Enzymes 09/28/20 Range/Units 14:10 Lactate Dehydrogenase 648 H (91-180) units/L CBC 09/29/20 Range/Units 07:52 WBC 15.1 H (4.5-11.0) K/mm3 RBC 3.88 (3.65-5.03) M/mm3 Hgb 12.1 (10.1-14.3) gm/dl Hct 38.2 (30.3-42.9) % Plt Count 175 (140-440) K/mm3 Comprehensive Metabolic Panel 09/29/20 Range/Units 07:52 Sodium 144 (137-145) mmol/L Potassium 5.6 H D (3.6-5.0) mmol/L Chloride 104.1 (98-107) mmol/L Carbon Dioxide 33 H (22-30) mmol/L BUN 40 H (7-17) mg/dL Creatinine 0.7 (0.6-1.2) mg/dL Glucose 238 H (65-100) mg/dL Calcium 8.2 L (8.4-10.2) mg/dL - Allied health notes Allied health notes reviewed: nursing
[2020-09-29] MEDS: ZINC SULFATE 220 MG CAP PO SCH ×2 (14:06→21:46)
[2020-09-29] MEDS: TAMSULOSIN 0.4 MG CAP PO SCH (14:06)
[2020-09-29] MEDS ORDERED: VANCOMYCIN 1,500 MG in SODIUM CHLORIDE 0.9% 500 ML 500 ML IV ONE (14:30)
[2020-09-29 14:34] LABS: INR 0.95 (0.87-1.13)
[2020-09-29 14:49] LABS: Blood Urea Nitrogen 48 mg/dL (7-17); Calcium 8.3 mg/dL (8.4-10.2); Hemolysis Index 14
[2020-09-29] MEDS ORDERED: SODIUM POLYSTYRENE 15 GM/60 ML ORAL LIQD PO ONE (15:00)
[2020-09-29 15:42] LABS: BUN/Creatinine Ratio 69
[2020-09-29] MEDS ORDERED: SODIUM CHLORIDE 0.9% 500 ML 500 ML IV ONE (16:00)
--- NOTE | 2020-09-29 17:12 | Progress Note ---
Assessment and Plan Assessment and plan: Assessment and Plan Assessment and plan: This is a 54-year-old female with bipolar disorder, hypothyroidism, hypertension, diabetes mellitus admitted for acute hypoxic respiratory failure, COVID-19 pneumonia, NSTEMI Neuro: Acute metabolic encephalopathy, drug ingestion, h/o bipolar -Psych consult, appreciate recommendations -Zoloft -intact cough/gag, PERRL -Avoid delirium -Sedated with fentanyl, goal RASS 0 to -1 -family updated on plan of care Cardiology: SR, NSTEMI, h/o HTN -Cardiology consulted, appreciate recommendations -Echocardiogram shows diastolic function normal, LVEF 50 to 55%, mild to moderat e concentric LVH, mild AR, mild MR, trace TR, RVSP normal at 17 mmHg -Aspirin 162, Plavix 75, beta-genny, as needed nitroglycerin ntg bid suspended given hypotension hold parameters on metop -Blood pressure monitoring per protocol -hypotensive today fluid bolus may need pressors -will need CT angio when stable Respiratory: Acute hypoxic respiratory failure; smoker -On mechanical ventilation, wean as tolerated ACPRV [id number] inc peep to 20 this afternoon and assess tolerance see RT notes -CCM consulted, appreciate recommendations -VAP bundle -SPO2 monitoring -Serial CXR and ABGs -continue nebs -current smoker GI: NAD -Nutrition consulted, appreciate recommendations -Tube feedings to goal -PPI -BM: [place] -BMS d/c today : Urinary retention; hyperk -purwick -Patient is on doxazosin, flomax -prn bladder scan -net neg 919 ml over 24 hours -vit D3 supplementation -repeat K validated hyperK treated medically cr normal continue to monitor -continue to trend cr -AM labs ordered Endo: Hypothyroidism, h/o DM -SSI -Scheduled lispro -Accu-Cheks every 6h -Synthroid -Avoid hypoglycemia Heme: Leukocytosis -Trend CBC -Transfuse for hemoglobin less than 7 -Systemic anticoagulation with heparin drip -no bleeding on exam -US neg for DVT ID: COVID-19 pneumonia, UTI, sepsis, lactic acidosis -COVID-19 PCR + 09/16/2020 -Infectious disease consulted, appreciate recommendations -S/p remdesivir 5 days -Dexamethasone -09/24 Actemra -ABX completed -Contact/droplet precautions -Trend COVID-19 inflammatory markers -febrile today PRN tylenol -recultured today -follow culture data The high probability of a clinically significant, sudden or life threatening deterioration of the [cardiorespiratory] system(s) required my full and direct attention, intervention and personal management. The aggregate critical care time was [60] minutes. This time is in addition to time spent performing reported procedures but includes the following: [x] Data Review and interpretation [x] Patient assessment and monitoring of vital signs [x] Documentation [x] Medication orders and management Disposition Plan: icu Total Time Spent with Patient (Minutes): 60 History Interval history: This is a 54-year-old female with bipolar disorder, hypothyroidism, hypertension, diabetes mellitus who presents to the emergency department via EMS after having being found on the floor with a generalized weakness vs syncope as the patient is in the case that she took some trazodone in order to get to sleep but cannot recall how many tablets she took her dosage. The final regimen patient was confused but arousable and responds to questions during her course of stay. In the emergency department she was found to be hypoxic upon arrival with O2 sat of 82% on room air and was placed on supplemental oxygen. Work-up in the emergency department included a CXR which revealed patchy parenchymal opacities, hyponatremia of 128, hypokalemia 3.2, elevated blood glucose of 388, lactic acidosis 2.7, elevated TSH at 34.67 and free T4 at 0.1. UA revealed UTI and tox screen revealed Tylenol level of 9.1. Patient was admitted to the hosp ital service with acute hypoxic respiratory failure secondary to pneumonia, hypokalemia, drug overdose and hyperglycemia. She was admitted as a COVID-19 PUI and infectious disease was also consulted. Psych was consulted for history of bipolar and possible drug overdose. Upon arrival to the ICU for progressive shortness of breath and progressively worsening CXR patient was noted to have an NSTEMI and cardiology was consulted. 09/16/2020: COVID-pneumonia. Coronavirus PCR positive, Patient on 5 L nasal cannula oxygen 09/17/2020: Covid pneumonia, Covid PCR positive yesterday. Patient on 5 L nasal cannula oxygen. ID consult appreciated, On remdesivir 09/18/2020: Still on 5 L nasal cannula oxygen, Saturations dropped to 88% on 3 L nasal cannula oxygen, Trying to wean but not possible, Continue remdesivir 09/20/2020: Patient is severely hypoxemic, requiring very high flow oxygen And intermittent BiPAP, x-ray chest worsening infiltrates. 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 Transfer to ICU for close observation and possible intubation if no improvement . I called [place] patient's mother and discussed in detail patient's deterioration, severe hypoxemia, Transfer to ICU, possible intubation if needed she informed me that. Her recently, With Covid infection, and she herself is Covid positive. 09/21/2020; patient was intubated yesterday, On ventilatory support, Non-ST elevation IL, check echocardiogram, Cardiology evaluation noted and appreciated. Discussed with 09/22: Patient's PEEP was increased to 14. [facility], will order to remove her Laura catheter today and IV heparin was changed to IV Lovenox 09/23: Continue current medical management for NSTEMI, advance O ETT by 1 cm, increase PEEP and reduced FiO2 per [facility]. Patient had retention today and Laura will be replaced with 30 straight cath and patient will be started on Flomax. 09/24: Patient received Actemra today, [facility] added doxazosin, we increase Lantus and SSI today for tighter glycemic control. 09/25: No acute events reported overnight. Increase in lantus. Vent changes made in accordance to ABG. 09/26: No acute overnight events reported. increased lantus again 09/27: family updated by [facility], BLE dopplars pending, increased lantus. 09/28: [facility] reduced FiO2 to 85%, avoiding bilateral lower extremity Doppler ultrasounds. Patient remains sedated on fentanyl. 09/29 no acute events overnight Disposition Plan: ICU Total Time Spent with Patient (Minutes): 60 History Interval history: no acute events Hospitalist Physical - Constitutional Vitals: Temp Pulse Resp BP Pulse Ox 101.8 F H 107 H 18 98/58 93 09/29/20 16:00 09/29/20 16:02 09/29/20 16:02 09/29/20 16:00 09/29/20 16:02 General appearance: Present: no acute distress, well-nourished, other (Intubated on vent, sedated) - EENT Eyes: Present: PERRL ENT: clear oral mucosa - Neck Neck: Present: supple - Respiratory Respiratory effort: normal - Cardiovascular Rhythm: regular Heart Sounds: Present: S1 & S2 Peripheral Pulses: within normal limits - Abdominal General gastrointestinal: soft - Integumentary Integumentary: Present: clear, warm, dry - Psychiatric Psychiatric: other - Neurologic Neurologic: other - Allied Health Allied health notes reviewed: nursing, RT, social work, case management HEART Score - HEART Score Troponin: Troponin T 0.501 ng/mL (0.00-0.029) H* D 09/22/20 10:22 Results - Labs CBC & Chem 7: 09/29/20 07:52 09/29/20 13:56 Labs: Laboratory Last Values WBC 15.1 K/mm3 (4.5-11.0) H 09/29/20 07:52 RBC 3.88 M/mm3 (3.65-5.03) 09/29/20 07:52 Hgb 12.1 gm/dl (10.1-14.3) 09/29/20 07:52 Hct 38.2 % (30.3-42.9) 09/29/20 07:52 MCV 99 fl (79-97) H 09/29/20 07:52 MCH 31 pg (28-32) 09/29/20 07:52 MCHC 32 % (30-34) 09/29/20 07:52 RDW 15.7 % (13.2-15.2) H 09/29/20 07:52 Plt Count 175 K/mm3 (140-440) 09/29/20 07:52 Lymph % (Auto) 7.3 % (13.4-35.0) L 09/16/20 04:47 [place] % (Auto) 6.6 % (0.0-7.3) 09/16/20 04:47 Eos % (Auto) 0.0 % (0.0-4.3) 09/16/20 04:47 Baso % (Auto) 0.4 % (0.0-1.8) 09/16/20 04:47 Lymph # (Auto) 0.8 K/mm3 (1.2-5.4) L 09/16/20 04:47 [place] # (Auto) 0.7 K/mm3 (0.0-0.8) 09/16/20 04:47 Eos # (Auto) 0.0 K/mm3 (0.0-0.4) 09/16/20 04:47 Baso # (Auto) 0.0 K/mm3 (0.0-0.1) 09/16/20 04:47 Seg Neutrophils % 85.7 % (40.0-70.0) H 09/16/20 04:47 Seg Neutrophils # 8.9 K/mm3 (1.8-7.7) H 09/16/20 04:47 PT 13.3 Sec. (12.2-14.9) 09/29/20 13:56 INR 0.95 (0.87-1.13) 09/29/20 13:56 APTT 38.2 Sec. (24.2-36.6) H 09/21/20 02:14 D-Dimer 4603.21 ng/mlDDU (0-234) H 09/28/20 14:10 Heparin Anti-Xa Level < 0.10 U.I./ml (0.3-0.7) L 09/27/20 04:47 ABG pH 7.335 pH Units (7.350-7.450) L 09/29/20 02:50 POC ABG pCO2 63.5 mmHg (32.0-48.0) H 09/28/20 04:00 ABG pCO2 74.6 mm Hg 09/29/20 02:50 POC ABG pO2 76.9 mmHg (83-108) L 09/28/20 04:00 ABG pO2 63.6 mm Hg (80.0-90.0) L 09/29/20 02:50 POC ABG HCO3 40.0 09/28/20 04:00 ABG HCO3 38.9 mmol/L (20.0-26.0) H 09/29/20 02:50 ABG O2 Saturation 91.9 % (95.0-99.0) L 09/29/20 02:50 ABG O2 Content 15.1 (0.0-44) 09/29/20 02:50 POC ABG Base Excess 13.0 09/28/20 04:00 ABG Base Excess 10.4 mmol/L (-2.0-3.0) H 09/29/20 02:50 ABG Hemoglobin 11.9 gm/dl (12.0-16.0) L 09/29/20 02:50 ABG Oxyhemoglobin 95.8 (94-98) 09/28/20 04:00 ABG Carboxyhemoglobin 1.4 % (0.0-5.0) 09/29/20 02:50 ABG Methemoglobin 0.5 % (0.0-1.5) 09/29/20 02:50 ABG Sodium 143.9 mmol/L (136.0-145.0) 09/28/20 04:00 ABG Potassium 4.5 mmol/L (3.40-4.50) 09/28/20 04:00 ABG Chloride 103.0 mmol/L (98-107) 09/28/20 04:00 ABG Glucose 228 mg/dL (65-95) H 09/28/20 04:00 VBG pH 7.368 (7.320-7.420) 09/15/20 18:46 Oxyhemoglobin 90.1 % (95.0-99.0) L 09/29/20 02:50 Carboxyhemoglobin 0.4 (0.5-1.5) L 09/28/20 04:00 FiO2 100 % 09/29/20 02:50 FiO2 % 90.0 09/28/20 04:00 Sodium 145 mmol/L (137-145) 09/29/20 13:56 Potassium 5.7 mmol/L (3.6-5.0) H 09/29/20 13:56 Chloride 103.6 mmol/L (98-107) 09/29/20 13:56 Carbon Dioxide 38 mmol/L (22-30) H 09/29/20 13:56 Anion Gap 9 mmol/L 09/29/20 13:56 BUN 48 mg/dL (7-17) H 09/29/20 13:56 Creatinine 0.7 mg/dL (0.6-1.2) 09/29/20 13:56 Estimated GFR > 60 ml/min 09/29/20 13:56 BUN/Creatinine Ratio 69 % 09/29/20 13:56 Glucose 282 mg/dL (65-100) H 09/29/20 13:56 POC Glucose 238 mg/dL (70-105) H 09/29/20 11:46 Lactic Acid 2.50 mmol/L (0.7-2.0) H* 09/26/20 13:17 Calcium 8.3 mg/dL (8.4-10.2) L 09/29/20 13:56 Phosphorus 4.10 mg/dL (2.5-4.5) 09/29/20 13:56 Magnesium 2.30 mg/dL (1.7-2.3) 09/29/20 13:56 Ferritin 530.1 ng/mL (10.0-200.0) H 09/28/20 14:10 Total Bilirubin 0.80 mg/dL (0.1-1.2) 09/19/20 06:10 AST 45 units/L (5-40) H 09/19/20 06:10 ALT 35 units/L (7-56) 09/19/20 06:10 Alkaline Phosphatase 108 units/L (35-129) 09/19/20 06:10 Ammonia 23.0 umol/L (25-60) L 09/15/20 18:46 Lactate Dehydrogenase 648 units/L (91-180) H 09/28/20 14:10 Total Creatine Kinase 1159 units/L (30-135) H 09/22/20 10:22 CK-MB (CK-2) 14.4 ng/mL (0.0-4.0) H 09/22/20 10:22 CK-MB (CK-2) Rel Index 1.2 (0-4) 09/22/20 10:22 Troponin T 0.501 ng/mL (0.00-0.029) H* D 09/22/20 10:22 C-Reactive Protein 0.60 mg/dL (0.00-1.30) 09/28/20 14:10 Total Protein 6.6 g/dL (6.3-8.2) 09/19/20 06:10 Albumin 3.5 g/dL (3.9-5) L 09/19/20 06:10 Albumin/Globulin Ratio 1.1 % 09/19/20 06:10 Triglycerides 156 mg/dL (2-149) H 09/21/20 00:46 Cholesterol 139 mg/dL (50-199) 09/21/20 00:46 LDL Cholesterol Direct 85 mg/dL (50-130) 09/21/20 00:46 HDL Cholesterol 22 mg/dL (40-59) L 09/21/20 00:46 Cholesterol/HDL Ratio 6.31 % 09/21/20 00:46 Procalcitonin 0.11 ng/mL (<0.15) 09/25/20 09:43 TSH 34.670 mlU/mL (0.270-4.200) H 09/15/20 18:46 Free T4 0.10 ng/dL (0.76-1.46) L 09/15/20 19:43 Arterial Blood Glucose 228 mg/dL (65-95) H 09/28/20 04:00 Arterial Blood Ionized Calcium 4.6 mg/dL (4.6-5.3) 09/28/20 04:00 Urine Color Yellow (Yellow) 09/15/20 Unknown Urine Turbidity Cloudy (Clear) 09/15/20 Unknown Urine pH 7.0 (5.0-7.0) 09/15/20 Unknown Ur Specific [place] 1.017 (1.003-1.030) 09/15/20 Unknown Urine Protein 100 mg/dl mg/dL (Negative) 09/15/20 Unknown Urine Glucose (UA) >=500 mg/dL (Negative) 09/15/20 Unknown Urine Ketones 20 mg/dL (Negative) 09/15/20 Unknown Urine Blood Lg (Negative) 09/15/20 Unknown Urine Nitrite Neg (Negative) 09/15/20 Unknown Urine Bilirubin Neg (Negative) 09/15/20 Unknown Urine Urobilinogen < 2.0 mg/dL (<2.0) 09/15/20 Unknown Ur Leukocyte Esterase Lg (Negative) 09/15/20 Unknown Urine WBC (Auto) > 182.0 /HPF (0.0-6.0) H 09/15/20 Unknown Urine RBC (Auto) 92.0 /HPF (0.0-6.0) 09/15/20 Unknown U Epithel Cells (Auto) 4.0 /HPF (0-13.0) 09/15/20 Unknown Urine Bacteria (Auto) 3+ /HPF (Negative) 09/15/20 Unknown Urine WBC Clumps 2+ /HPF 09/15/20 Unknown Urine Yeast (Budding) 3+ /HPF 09/15/20 Unknown Salicylates < 0.3 mg/dL (2.8-20.0) L 09/15/20 18:46 Urine Opiates Screen Presumptive negative 09/15/20 Unknown Urine Methadone Screen Presumptive negative 09/15/20 Unknown Acetaminophen 5.0 ug/mL (10.0-30.0) L 09/16/20 21:38 Ur Barbiturates Screen Presumptive negative 09/15/20 Unknown Ur Phencyclidine Scrn Presumptive negative 09/15/20 Unknown Ur Amphetamines Screen Presumptive negative 09/15/20 Unknown U Benzodiazepines Scrn Presumptive negative 09/15/20 Unknown Urine Cocaine Screen Presumptive negative 09/15/20 Unknown U Marijuana (THC) Screen Presumptive negative 09/15/20 Unknown Drugs of Abuse Note Disclamer 09/15/20 Unknown Plasma/Serum Alcohol < 0.01 % (0-0.07) 09/15/20 18:46 Coronavirus (PCR) Positive (Negative) A 09/16/20 08:00 Microbiology: Microbiology 09/29/20 13:56 Peripheral/Venous Blood Culture - Preliminary Culture in Progress 09/29/20 13:56 Peripheral/Venous Blood Culture - Preliminary Culture in Progress Laura/IV: Voiding Method External Female Catheter Active Medications - Current Medications Current Medications: Generic Name Dose Route Start Last Admin Trade Name Freq PRN Reason Stop Dose Admin Acetaminophen 650 mg 09/29/20 16:39 Acetaminophen 325 Mg/10.15 Ml Oral Liqd Unit Dose PO Q6H PRN Pain, Mild (1-3) Albuterol 2.5 mg 09/20/20 12:28 Albuterol 2.5 Mg/3 Ml Nebu IH Q4HRT PRN Shortness Of Breath Lipase/Protease/Amylase 1 each 09/22/20 08:06 Lipase 10,500/Protease 25,000/Amylase 43,750 (Units) Dr Hector BAIRESTUBE PRN PRN For Clogged Feeding Tube Ascorbic Acid 500 mg 09/22/20 22:00 09/29/20 13:42 Ascorbic Acid 500 Mg Tab PO 500 mg BID AMANDA Administration Aspirin 162 mg 09/21/20 15:00 09/29/20 13:42 Aspirin 81 Mg Tab Chew PO 162 mg QDAY AMANDA Administration Cholecalciferol 5,000 unit 09/23/20 10:00 09/29/20 13:43 Cholecalciferol (Vit D3) 5,000 Unit Tab PO 5,000 unit DAILY AMANDA Administration Clopidogrel Bisulfate 75 mg 09/22/20 10:00 09/29/20 13:42 Clopidogrel 75 Mg Tab PO 75 mg QDAY AMANDA Administration Dextrose 50 ml 09/16/20 21:24 Dextrose 50% In Water (25gm) 50 Ml Syringe IV Q30MIN PRN Hypoglycemia Protocol Doxazosin Mesylate 1 mg 09/24/20 22:00 09/28/20 22:07 Doxazosin 1 Mg Tab PO 1 mg QHS AMANDA Administration Famotidine 20 mg 09/22/20 10:00 09/29/20 13:43 Famotidine 20 Mg Tab PO 20 mg BID AMANDA Administration Fentanyl 50 mcg 09/20/20 19:02 Fentanyl 100 Mcg/2 Ml Inj IV Q10MIN PRN ANALGESIA Heparin Sodium (Porcine) 3,100 unit 09/29/20 13:12 09/29/20 13:53 Heparin 10,000 Units/10 Ml Vial 40 unit/kg (3100 unit) 3,100 unit IV Administration Q6H PRN Anti-Xa Assay < 0.1 units/ml Hydrophilic Ointment 1 applic 09/20/20 19:02 Lip Therapy Vaseline TP Q2HR PRN Dry Lips Fentanyl Citrate 2,000 mcg in 100 mls @ 3.925 mls/hr 09/20/20 20:00 09/29/20 13:32 Fentanyl Drip Premix IV 2 mcg/kg/hr TITR AMANDA 7.85 mls/hr Administration Protocol 1 MCG/KG/HR Cefepime HCl 2 gm in 100 mls @ 200 mls/hr 09/29/20 14:00 09/29/20 14:20 Cefepime/Ns 2 Gm/100 Ml IV Infused Q12HR AMANDA Infusion Protocol Heparin Sodium/Sodium Chloride 25,000 unit in 500 mls @ 23 mls/hr 09/29/20 14:00 09/29/20 13:38 Heparin/ 0.45% Nacl-25,000 Unit/500 Ml IV 1,150 units/hr TITR AMANDA 23 mls/hr Administration Protocol 1,150 UNITS/HR Vancomycin HCl 1,250 mg/ 275 mls @ 166.667 mls/hr 09/30/20 14:00 Sodium Chloride IV Q12H AMANDA Insulin Glargine 30 units 09/29/20 11:00 09/29/20 13:47 Insulin Glargine 100 Units/Ml SUB-Q 30 units QAMDIAB AMANDA Administration Insulin Glargine 25 units 09/29/20 22:00 Insulin Glargine 100 Units/Ml SUB-Q QHS AMANDA Insulin Human Lispro 6 unit 09/28/20 12:00 09/29/20 13:53 Insulin Lispro 100 Unit/Ml SUB-Q 6 unit Q6HR [facility] Administration Insulin Human Regular 0 units 09/23/20 12:00 09/29/20 13:44 Insulin Regular, Human 100 Units/1 Ml SUB-Q 4 units Q6H [facility] Administration Protocol Levothyroxine Sodium 125 mcg 09/18/20 06:00 09/29/20 07:01 Levothyroxine 125 Mcg Tab PO 125 mcg DAILY@0600 [facility] Administration Metoprolol Tartrate 2.5 mg 09/21/20 15:00 09/29/20 13:44 Metoprolol Tartrate 5 Mg/5 Ml Inj IV 2.5 mg Q8HR [facility] Administration Multi-Ingred Cream/Lotion/Oil/Oint 1 applic 09/20/20 19:02 Mineral Oil/Petrolatum, White Ophth Oint 3.5 Gm OU Q4HR PRN Dry Eye(s) Naloxone HCl 0.1 mg 09/15/20 18:36 Naloxone 0.4 Mg/1 Ml Inj IV Q2MIN PRN Res Rate </= 8 or 02 SAT < 92% Nitroglycerin 0.5 inch 09/22/20 06:00 09/29/20 13:43 Nitroglycerin 2% Oint 1 Gm TP 0.5 inch BIDNTG [facility] Administration Protocol Senna 8.8 mg 09/24/20 22:00 09/28/20 22:06 Sennosides Oral Liqd 8.8 Mg/5 Ml Oral Liqd PO 8.8 mg QHS [facility] Administration Sertraline HCl 25 mg 09/17/20 12:00 09/29/20 13:43 Sertraline 25 Mg Tab PO 25 mg QDAY [facility] Administration Simple Syrup 15 ml 09/22/20 08:06 Simple Syrup 15 Ml FEEDTUBE PRN PRN Hypoglycemia Simple Syrup 30 ml 09/22/20 08:06 Simple Syrup 15 Ml FEEDTUBE PRN PRN Hypoglycemia Sodium Bicarbonate 325 mg 09/22/20 08:06 Sodium Bicarbonate 325 Mg Tab FEEDTUBE PRN PRN For Clogged Feeding Tube Sodium Chloride 10 ml 09/16/20 10:00 09/29/20 14:02 Sodium Chloride 0.9% 10 Ml Flush Syringe IV 10 ml BID AMANDA Administration Sodium Chloride 10 ml 09/15/20 22:09 Sodium Chloride 0.9% 10 Ml Flush Syringe IV PRN PRN LINE FLUSH Sodium Chloride 5 ml 09/25/20 02:30 Sodium Chloride 0.9% 500 Ml Ivpb IV DIRECT PRN [employer]OR Tamsulosin HCl 0.4 mg 09/27/20 10:00 09/29/20 14:06 Tamsulosin 0.4 Mg Cap PO 0.4 mg QDAY AMANDA Administration Zinc Sulfate 220 mg 09/22/20 22:00 09/29/20 14:06 Zinc Sulfate 220 Mg Cap PO 220 mg BID AMANDA Administration Nutrition/Malnutrition Assess - Dietary Evaluation Nutrition/Malnutrition Findings: Nutrition Notes Start: 09/16/20 15:13 Freq: Status: Active Protocol: Document 09/26/20 11:52 (Rec: 09/26/20 11:54 [id number]) Nutrition Notes Initial or Follow up Reassessment Current Diagnosis Diabetes,Hypertension, Respiratory Failure Other Pertinent Diagnosis pneu, drug OD, COVID-19 Current Diet Vital AF 1.2 at 60 ml/hr Labs/Tests POC BG [phone] Phos 2.2 Pertinent Medications Sodium Phos Insulin Height 5 ft 6 in Weight 78.5 kg [place] Body Weight (kg) 59.09 BMI 27.9 Weight Status Appropriate Subjective/Other Information Insulin has been increased again this AM. Pt tolerating TF. Percent of energy/protein needs met: 100%/100% Burn Absent Trauma Absent Current % PO Negligible Minimum of two criteria No physical signs of malnutrition #1 Nutrition Diagnosis Inadequate oral intake Diagnosis Progress(for reassessment Continues documentation) Is patient on ventilator? Yes Is Patient Ambulatory and/or Out of Bed No [facility] [phone] Calculation Used for Recommendations [facility] Additional Notes Protein: (1.2-2g/kg) 94-157g Fluid: 1 ml/kcal Nutrition Intervention Change Diet Order: Continue TF Nutrition Support: Vital AF 1.2 at 60 ml/hr Flush 75 ml q4h or per MD Kcal 1,728 Protein (gm) 108 Fluid (mL) 1,168 Goal #1 Meet at least 75% of energy and protein needs via TF Anticipated Discharge Needs: Unable to determine at this time Follow-Up By: 09/30/20 Additional Comments F/u: BG and stable TF - Attestation Statement I have reviewed and agreed w/ Malnutrition eval & tx plan: Yes
[2020-09-29] MEDS: DOXAZOSIN 1 MG TAB PO SCH (21:42)
[2020-09-29] MEDS: SENNOSIDES ORAL LIQD 8.8 MG/5 ML ORAL LIQD PO SCH (21:45)
[2020-09-29] MEDS: ACETAMINOPHEN 325 MG/10.15 ML ORAL LIQD UNIT DOSE PO PRN (21:45)
[2020-09-29] MEDS ORDERED: INSULIN GLARGINE 100 UNITS/ML SUB-Q SCH (22:00)
[2020-09-29 22:24] LABS: Bacteria,Urine 2+ /HPF (Negative); Bilirubin,Urine NEG (Negative); Blood,Urine SM (Negative); Color,Urine Yellow (Yellow); Mucus,Urine FEW /HPF
[2020-09-30] MEDS: fentaNYL DRIP Premix 2,000 MCG/100 ML BAG IV SCH ×2 (01:16→20:24)
--- NOTE | 2020-09-30 01:37 | XRay Report ---
CHEST 1 VIEW 09/30/2020 12:09 AM INDICATION / CLINICAL INFORMATION: sob. COMPARISON: 09/29/2020 FINDINGS: SUPPORT DEVICES: ET tube and NG tube again project in expected position HEART / MEDIASTINUM: No significant abnormality. LUNGS / PLEURA: Moderate bilateral airspace disease, unchanged No pneumothorax. ADDITIONAL FINDINGS: No significant additional findings. IMPRESSION: 1. Stable bilateral bronchopneumonia Signer Name: Antonio Christian MD Signed: 09/30/2020 1:33 AM Workstation Name: [id number]
[2020-09-30] MEDS: METOPROLOL TARTRATE 5 MG/5 ML INJ IV SCH ×3 (06:05→21:09)
[2020-09-30] MEDS: NITROGLYCERIN 2% OINT 1 GM TP SCH ×2 (06:06→14:43)
[2020-09-30] MEDS: INSULIN REGULAR, HUMAN 100 UNITS/1 ML SUB-Q SCH ×4 (06:48→18:12)
[2020-09-30] MEDS: LEVOTHYROXINE 125 MCG TAB PO SCH (06:49)
[2020-09-30] MEDS: INSULIN LISPRO 100 UNIT/ML SUB-Q SCH ×4 (06:54→18:12)
[2020-09-30 07:57] LABS: Hematocrit 35.4 % (30.3-42.9); Hemoglobin 11.4 gm/dl (10.1-14.3); Mean Corpuscular HGB Conc 32 % (30-34); Mean Corpuscular Volume 100 fl (79-97); Platelet Count 147 K/mm3 (140-440); Red Blood Count 3.55 M/mm3 (3.65-5.03); Red Cell Distribution Width 16.3 % (13.2-15.2)
[2020-09-30 08:13] LABS: Alanine Aminotransferase 41 units/L (7-56); Albumin 2.5 g/dL (3.9-5); BUN/Creatinine Ratio 67; Blood Urea Nitrogen 47 mg/dL (7-17); C-Reactive Protein 0.4 mg/dL (0.00-1.30); Calcium 7.9 mg/dL (8.4-10.2); Hemolysis Index 7
[2020-09-30] MEDS: INSULIN GLARGINE 100 UNITS/ML SUB-Q SCH (08:45)
--- NOTE | 2020-09-30 09:32 | Progress Note ---
Assessment and Plan Respiratory failure due to COVID pneumonia Acute Non-ST elevation myocardial infarction during hospital course Echocardiogram shows well-preserved left ventricular systolic function, EF 50- 55%. Recommendations: Continue medical therapy for underlying coronary artery disease as tolerated. Patient is not a candidate for aggressive and invasive cardiac therapies, in the setting of respiratory failure due to severe viral pneumonia and sepsis. Supportive cardiac management. Subjective Date of service: 09/30/20 Principal diagnosis: Ac encephalopathy; CAP; Sepsis; COVID-19 infxn; Ac hypoxemic resp failure Interval history: Remains unresponsive on the ventilator. Objective Vital Signs Temp Pulse Pulse Resp BP Pulse Ox 09/30/20 07:45 108 H 18 95/51 89 09/30/20 07:30 107 H 18 99/51 89 09/30/20 07:15 107 H 18 98/52 90 09/30/20 07:00 105 H 18 100/50 89 09/30/20 06:45 101 H 18 90/39 82 L 09/30/20 06:30 105 H 18 100/57 88 09/30/20 06:20 120/57 88 09/30/20 06:15 107 H 17 102/52 89 09/30/20 06:06 105 H 98/54 09/30/20 06:05 105 H 98/54 09/30/20 06:00 107 H 18 106/54 88 09/30/20 05:45 108 H 17 98/54 88 09/30/20 05:30 108 H 18 104/57 90 09/30/20 05:15 109 H 17 106/54 89 09/30/20 05:00 106 H 18 102/52 89 09/30/20 04:45 108 H 18 98/56 89 09/30/20 04:30 108 H 18 101/52 89 09/30/20 04:15 107 H 17 104/50 90 09/30/20 04:00 97.8 F 107 H 106 H 18 102/55 89 09/30/20 03:45 107 H 17 100/54 90 09/30/20 03:30 106 H 17 107/53 90 09/30/20 03:15 106 H 17 102/51 90 09/30/20 03:00 106 H 17 104/53 90 09/30/20 02:53 96/53 91 09/30/20 02:45 106 H 18 96/53 89 09/30/20 02:30 107 H 15 104/50 90 09/30/20 02:15 106 H 16 101/51 90 09/30/20 02:00 108 H 18 99/51 90 09/30/20 01:45 107 H 18 100/53 91 09/30/20 01:30 110 H 18 100/55 90 09/30/20 01:15 109 H 17 101/51 91 09/30/20 01:00 108 H 18 101/50 88 09/30/20 00:45 110 H 18 102/56 92 09/30/20 00:30 111 H 18 97/55 92 09/30/20 00:15 112 H 18 99/54 91 09/30/20 00:00 97.7 F 113 H 102 H 18 107/56 91 09/29/20 23:45 116 H 17 114/58 91 09/29/20 23:30 114 H 18 108/53 92 09/29/20 23:15 112 H 18 102/54 90 09/29/20 23:00 112 H 18 103/53 91 09/29/20 22:45 112 H 18 99/51 91 09/29/20 22:30 113 H 18 96/53 92 09/29/20 22:15 115 H 18 105/57 93 09/29/20 22:00 114 H 18 100/56 91 09/29/20 21:47 115 H 97/50 09/29/20 21:45 115 H 18 107/58 92 09/29/20 21:42 115 H 99/54 09/29/20 21:30 115 H 18 101/58 92 09/29/20 21:15 115 H 19 104/56 92 09/29/20 21:00 116 H 18 106/54 92 09/29/20 20:45 115 H 18 99/58 91 09/29/20 20:30 116 H 18 111/62 92 09/29/20 20:15 116 H 17 112/57 91 09/29/20 20:00 99.2 F 117 H 105 H 18 107/62 92 09/29/20 19:45 116 H 18 105/59 91 09/29/20 19:30 116 H 18 110/58 91 09/29/20 19:15 116 H 18 116/61 92 09/29/20 19:00 116 H 18 112/59 91 09/29/20 18:45 116 H 18 113/61 91 09/29/20 18:40 116 H 18 107/59 91 09/29/20 18:30 116 H 18 107/59 91 09/29/20 18:15 115 H 18 109/58 91 09/29/20 18:00 114 H 18 106/58 92 09/29/20 17:45 113 H 18 102/56 92 09/29/20 17:30 112 H 18 107/54 91 09/29/20 17:15 110 H 18 106/56 90 09/29/20 17:13 110 H 102/58 91 09/29/20 17:00 110 H 18 102/58 91 09/29/20 16:45 109 H 18 99/53 88 09/29/20 16:30 107 H 20 100/54 88 09/29/20 16:19 109 H 09/29/20 16:15 109 H 18 97/59 93 09/29/20 16:02 107 H 18 93 09/29/20 16:00 101.8 F H 107 H 18 98/58 93 09/29/20 15:45 107 H 18 94/51 94 09/29/20 15:30 108 H 18 95/52 93 09/29/20 15:28 92.8 F L 09/29/20 15:15 108 H 18 93/57 94 09/29/20 15:00 107 H 18 88/59 92 09/29/20 14:45 106 H 18 95/61 93 09/29/20 14:30 107 H 18 97/56 93 09/29/20 14:15 108 H 17 98/62 92 09/29/20 14:00 104 H 18 88/47 92 09/29/20 13:45 121 H 18 105/68 91 09/29/20 13:44 120 H 104/69 09/29/20 13:43 121 H 104/69 09/29/20 13:30 126 H 14 104/69 91 09/29/20 13:15 126 H 19 110/61 92 09/29/20 13:08 124 H 110/62 92 09/29/20 13:00 126 H 16 110/62 91 09/29/20 12:45 126 H 17 114/66 92 09/29/20 12:30 126 H 15 104/62 92 09/29/20 12:19 125 H 09/29/20 12:15 125 H 18 108/66 92 09/29/20 12:00 101.5 F H 125 H 18 103/63 91 09/29/20 11:45 124 H 18 98/61 91 09/29/20 11:30 123 H 17 94/63 90 09/29/20 11:15 122 H 18 99/66 91 09/29/20 11:00 121 H 18 100/66 92 09/29/20 10:45 120 H 16 100/61 90 09/29/20 10:30 119 H 18 101/64 91 09/29/20 10:15 117 H 18 97/64 90 09/29/20 10:00 115 H 18 87/59 89 09/29/20 09:45 115 H 17 93/66 90 - Physical Examination Narrative exam: Deferred due to COVID-19 isolation protocol. General: Other (Unresponsive, on the vent) Cardiac: Positive: Reg Rate and Rhythm - Labs and Meds Cardiac Enzymes 09/30/20 09/30/20 Range/Units 07:19 07:19 AST 44 H (5-40) units/L Lactate Dehydrogenase 560 H (91-180) units/L Coagulation 09/29/20 Range/Units 13:56 PT 13.3 (12.2-14.9) Sec. INR 0.95 (0.87-1.13) CBC 09/30/20 Range/Units 07:19 WBC 13.4 H (4.5-11.0) K/mm3 RBC 3.55 L (3.65-5.03) M/mm3 Hgb 11.4 (10.1-14.3) gm/dl Hct 35.4 (30.3-42.9) % Plt Count 147 (140-440) K/mm3 Comprehensive Metabolic Panel 09/29/20 09/29/20 09/30/20 Range/Units 07:52 13:56 07:19 Sodium 144 145 149 H (137-145) mmol/L Potassium 5.6 H D 5.7 H 4.1 D (3.6-5.0) mmol/L Chloride 104.1 103.6 107.9 H (98-107) mmol/L Carbon Dioxide 33 H 38 H 38 H (22-30) mmol/L BUN 40 H 48 H 47 H (7-17) mg/dL Creatinine 0.7 0.7 0.7 (0.6-1.2) mg/dL Glucose 238 H 282 H 253 H (65-100) mg/dL Calcium 8.2 L 8.3 L 7.9 L (8.4-10.2) mg/dL AST 44 H (5-40) units/L ALT 41 (7-56) units/L Alkaline Phosphatase 135 H (35-129) units/L Total Protein 5.1 L (6.3-8.2) g/dL Albumin 2.5 L (3.9-5) g/dL - Allied health notes Allied health notes reviewed: RT
[2020-09-30] MEDS: TAMSULOSIN 0.4 MG CAP PO SCH (10:33)
[2020-09-30] MEDS: FAMOTIDINE 20 MG TAB PO SCH ×2 (10:34→21:08)
[2020-09-30] MEDS: CHOLECALCIFEROL (VIT D3) 5,000 UNIT TAB PO SCH (10:34)
[2020-09-30] MEDS: ZINC SULFATE 220 MG CAP PO SCH ×2 (10:34→21:08)
[2020-09-30] MEDS: CLOPIDOGREL 75 MG TAB PO SCH (10:34)
[2020-09-30] MEDS: ASPIRIN 81 MG TAB CHEW PO SCH (10:34)
[2020-09-30] MEDS: SERTRALINE 25 MG TAB PO SCH (10:34)
[2020-09-30] MEDS: ASCORBIC ACID 500 MG TAB PO SCH ×2 (10:34→21:08)
[2020-09-30] MEDS: ACETAMINOPHEN 325 MG/10.15 ML ORAL LIQD UNIT DOSE PO PRN (10:35)
[2020-09-30] MEDS: CEFEPIME/NS 2 GM/100 ML 2 GM/100 ML BAG IV SCH ×2 (10:36→21:09)
[2020-09-30] MEDS: VANCOMYCIN 1,250 MG in SODIUM CHLORIDE 0.9% 250ML 250 ML IV SCH ×2 (10:40→21:10)
[2020-09-30] MEDS: HEPARIN/ 0.45% NACL DRIP 25,000 UNIT/500 ML BAG IV SCH (12:24)
--- NOTE | 2020-09-30 13:01 | Progress Note ---
Assessment and Plan Cultures: Blood culture no growth so far COVID-19 PCR positive 09/27/2020 tracheal aspirate culture: In process 09/29/2020 blood culture: In process A/P: 54-year-old female past medical history bipolar, hypothyroidism, hypertension, diabetes now with: #New onset sepsis: Worsening leukocytosis, fever. DVT scan negative. Chest x- ray with stable bilateral pneumonia. #Acute hypoxic respiratory failure: Remains on the ventilator 90%, PEEP 18. #Critical COVID-19 pneumonia: PCR positive. #Drug overdose: With trazodone Recs: -Completed Remdesivir, steroids -f/u Blood, sputum and urine cultures -continue cefepime, vancomycin, D2 Hermann Ochoa MD, FACP [facility] ([facility] O: [phone] F: [phone] Subjective Date of service: 09/30/20 Principal diagnosis: Ac encephalopathy; CAP; Sepsis; COVID-19 infxn; Ac hypoxemic resp failure Interval history: Febrile yesterday, no fever today. Remains on the vent. CRP 0.4, D-dimer 1776. Objective - Exam Narrative Exam: Physical Exam (reviewed in chart to minimize risk of transmission) Constitutional: deferred Head, Ears, Nose: deferred Eyes: deferred Neck: deferred Oral: deferred Cardiovascular: deferred Respiratory: deferred GI: deferred Musculoskeletal: deferred Skin: deferred Hem/Lymphatic: deferred Psych: deferred Neurological: deferred - Constitutional Vitals: Vital Signs Temp Pulse Resp BP Pulse Ox 98.3 F 110 H 18 96/46 92 09/30/20 12:00 09/30/20 11:18 09/30/20 10:45 09/30/20 11:18 09/30/20 11:18 Temperature -Last 24 Hours Temperature 98.3 F Temperature 98.4 F Temperature 97.8 F Temperature 97.7 F Temperature 99.2 F Temperature 101.8 F Temperature 92.8 F - Labs CBC & Chem 7: 09/30/20 07:19 09/30/20 07:19 Labs: Abnormal lab results 09/29/20 09/29/20 09/29/20 Range/Units 13:56 17:13 21:00 WBC (4.5-11.0) K/mm3 RBC (3.65-5.03) M/mm3 MCV (79-97) fl RDW (13.2-15.2) % D-Dimer (0-234) ng/mlDDU Heparin Anti-Xa Level (0.3-0.7) U.I./ml ABG pH (7.320-7.450) POC ABG pCO2 (32.0-48.0) mmHg POC ABG pO2 (83-108) mmHg ABG Hemoglobin (12.0-17.5) ABG Oxyhemoglobin (94-98) ABG Glucose (65-95) mg/dL Carboxyhemoglobin (0.5-1.5) Sodium (137-145) mmol/L Potassium 5.7 H (3.6-5.0) mmol/L Chloride (98-107) mmol/L Carbon Dioxide 38 H (22-30) mmol/L BUN 48 H (7-17) mg/dL Glucose 282 H (65-100) mg/dL POC Glucose 282 H (70-105) mg/dL Calcium 8.3 L (8.4-10.2) mg/dL Ferritin (10.0-200.0) ng/mL AST (5-40) units/L Alkaline Phosphatase (35-129) units/L Lactate Dehydrogenase (91-180) units/L Total Protein (6.3-8.2) g/dL Albumin (3.9-5) g/dL Arterial Blood Glucose (65-95) mg/dL Urine WBC (Auto) 28.0 H (0.0-6.0) /HPF 09/29/20 09/30/20 09/30/20 Range/Units 23:54 05:06 07:19 WBC (4.5-11.0) K/mm3 RBC (3.65-5.03) M/mm3 MCV (79-97) fl RDW (13.2-15.2) % D-Dimer 1776.66 H (0-234) ng/mlDDU Heparin Anti-Xa Level 1.69 H (0.3-0.7) U.I./ml ABG pH (7.320-7.450) POC ABG pCO2 (32.0-48.0) mmHg POC ABG pO2 (83-108) mmHg ABG Hemoglobin (12.0-17.5) ABG Oxyhemoglobin (94-98) ABG Glucose (65-95) mg/dL Carboxyhemoglobin (0.5-1.5) Sodium (137-145) mmol/L Potassium (3.6-5.0) mmol/L Chloride (98-107) mmol/L Carbon Dioxide (22-30) mmol/L BUN (7-17) mg/dL Glucose (65-100) mg/dL POC Glucose 302 H 271 H (70-105) mg/dL Calcium (8.4-10.2) mg/dL Ferritin (10.0-200.0) ng/mL AST (5-40) units/L Alkaline Phosphatase (35-129) units/L Lactate Dehydrogenase (91-180) units/L Total Protein (6.3-8.2) g/dL Albumin (3.9-5) g/dL Arterial Blood Glucose (65-95) mg/dL Urine WBC (Auto) (0.0-6.0) /HPF 09/30/20 09/30/20 09/30/20 Range/Units 07:19 07:19 07:19 WBC 13.4 H (4.5-11.0) K/mm3 RBC 3.55 L (3.65-5.03) M/mm3 MCV 100 H (79-97) fl RDW 16.3 H (13.2-15.2) % D-Dimer (0-234) ng/mlDDU Heparin Anti-Xa Level (0.3-0.7) U.I./ml ABG pH (7.320-7.450) POC ABG pCO2 (32.0-48.0) mmHg POC ABG pO2 (83-108) mmHg ABG Hemoglobin (12.0-17.5) ABG Oxyhemoglobin (94-98) ABG Glucose (65-95) mg/dL Carboxyhemoglobin (0.5-1.5) Sodium (137-145) mmol/L Potassium (3.6-5.0) mmol/L Chloride (98-107) mmol/L Carbon Dioxide (22-30) mmol/L BUN (7-17) mg/dL Glucose (65-100) mg/dL POC Glucose (70-105) mg/dL Calcium (8.4-10.2) mg/dL Ferritin 770.1 H (10.0-200.0) ng/mL AST (5-40) units/L Alkaline Phosphatase (35-129) units/L Lactate Dehydrogenase 560 H (91-180) units/L Total Protein (6.3-8.2) g/dL Albumin (3.9-5) g/dL Arterial Blood Glucose (65-95) mg/dL Urine WBC (Auto) (0.0-6.0) /HPF 09/30/20 09/30/20 09/30/20 Range/Units 07:19 07:59 12:02 WBC (4.5-11.0) K/mm3 RBC (3.65-5.03) M/mm3 MCV (79-97) fl RDW (13.2-15.2) % D-Dimer (0-234) ng/mlDDU Heparin Anti-Xa Level (0.3-0.7) U.I./ml ABG pH 7.280 L (7.320-7.450) POC ABG pCO2 74.7 H (32.0-48.0) mmHg POC ABG pO2 55.3 L (83-108) mmHg ABG Hemoglobin 11.8 L (12.0-17.5) ABG Oxyhemoglobin 86.3 L (94-98) ABG Glucose 236 H (65-95) mg/dL Carboxyhemoglobin 0.2 L (0.5-1.5) Sodium 149 H (137-145) mmol/L Potassium (3.6-5.0) mmol/L Chloride 107.9 H (98-107) mmol/L Carbon Dioxide 38 H (22-30) mmol/L BUN 47 H (7-17) mg/dL Glucose 253 H (65-100) mg/dL POC Glucose 267 H (70-105) mg/dL Calcium 7.9 L (8.4-10.2) mg/dL Ferritin (10.0-200.0) ng/mL AST 44 H (5-40) units/L Alkaline Phosphatase 135 H (35-129) units/L Lactate Dehydrogenase (91-180) units/L Total Protein 5.1 L (6.3-8.2) g/dL Albumin 2.5 L (3.9-5) g/dL Arterial Blood Glucose 236 H (65-95) mg/dL Urine WBC (Auto) (0.0-6.0) /HPF - Imaging and cardiology Chest x-ray: report reviewed, image reviewed (no interval change, shows b/l pna)
--- NOTE | 2020-09-30 13:03 | Progress Note ---
Assessment and Plan Acute toxic metabolic encephalopathy Severe sepsis Community acquired pneumonia coronavirus-19 infection Acute hypoxemic respiratory failure Hyponatremia at presentation Diabetes, poorly controlled Lactic acidosis Urinary tract infection Tobacco use disorder (care plan discussed at length with patients eldest son today and his questions were answered) - hold Flomax & Doxazosin re: hypotension - increased peep to 20 cm H2O - continue IV Heparin re: VTE - continue to wean supplemental oxygen for target O2 sat's > 92% acutely - continue care as below otherwise; - continue Daily SAT and SBT assessment as tolerated - VAP bundle addressed - continue lung protective strategies - continue bronchodilators with pulmonary hygiene per RT - wean per pulmonary driven protocols otherwise - continue accuchecks with glycemic control per SSI (While critically ill target blood glucose of 140-180 mg/dL; avoid hypoglycemia) - sedation prn for target RASS -1 to -2 - avoid nephrotoxins, renally dose all medications - continue to avoid benzodiazepine's, reduce the possibility of delirium - complete anti-infective's per ID rec's - prn analgesia per CPOT score - Maintenance of sleep-wake cycle, avoid delirium - continue enteral nutritional support at goal rate as tolerated - G.I. & VTE prophylaxis - PT/OT/ROM exercises - continue mobility protocols for pressure ulcer prophylaxis - Monitor hemodynamics closely - continue other care per attending / other consultants - discharge planning ongoing concurrently COVID SPECIFIC INTERVENTIONS - continue contact and airborne isolation - Remdesivir as per ID/Pulmonary developed protocols (ordered) - continue systemic steroids for severe COVID-19 infection - follow repeat COVID tests results - zinc and vitamin C supplementation - Monitor inflammatory markers per facility protocol - ferritin, D-dimer, CRP - therapeutic anticoagulation per system Protocol based on d-dimer and clinical considerations (not indicated) .... Re-evaluate in am & prn CONDITION: CRITICAL PROGNOSIS: GUARDED CODE STATUS: FULL CODE The high probability of a clinically significant, sudden or life-threatening deterioration of the [respiratory, cardiovascular & neurologic] system(s) required my full and direct attention, intervention and personal management. The aggregate critical care time was [32] minutes without overlap. Time includes spent on; [x] Data Review and interpretation [x] Patient assessment and monitoring of vital signs [x] Documentation [x] Medication orders and management Subjective Date of service: 09/30/20 Principal diagnosis: Ac encephalopathy; CAP; Sepsis; COVID-19 infxn; Ac hypoxemic resp failure Interval history: Patient is seen today for: Acute toxic metabolic encephalopathy; CAP; Severe sepsis; COVID-19 infection; Acute hypoxemic respiratory failure UTI; DM II Seen and examined at bedside; 24hour events reviewed; nursing and respiratory care staff consulted; no adverse overnight events reported to me; resting in bed; remains on MVS; AMS is persistent; remains with ARDS; no room to wean FiO2; BP's remain soft; no gross bleeding on IV heparin drip; no high grade fevers Objective Vital Signs - 12hr 09/30/20 09/30/20 09/30/20 01:15 01:30 01:45 Temperature Pulse Rate 109 H 110 H 107 H Pulse Rate [ From Monitor] Respiratory 17 18 18 Rate Blood Pressure 101/51 100/55 100/53 O2 Sat by Pulse 91 90 91 Oximetry 09/30/20 09/30/20 09/30/20 02:00 02:15 02:30 Temperature Pulse Rate 108 H 106 H 107 H Pulse Rate [ From Monitor] Respiratory 18 16 15 Rate Blood Pressure 99/51 101/51 104/50 O2 Sat by Pulse 90 90 90 Oximetry 09/30/20 09/30/20 09/30/20 02:45 02:53 03:00 Temperature Pulse Rate 106 H 106 H Pulse Rate [ From Monitor] Respiratory 18 17 Rate Blood Pressure 96/53 96/53 104/53 O2 Sat by Pulse 89 91 90 Oximetry 09/30/20 09/30/20 09/30/20 03:15 03:30 03:45 Temperature Pulse Rate 106 H 106 H 107 H Pulse Rate [ From Monitor] Respiratory 17 17 17 Rate Blood Pressure 102/51 107/53 100/54 O2 Sat by Pulse 90 90 90 Oximetry 09/30/20 09/30/20 09/30/20 04:00 04:15 04:30 Temperature 97.8 F Pulse Rate 107 H 107 H 108 H Pulse Rate [ 106 H From Monitor] Respiratory 18 17 18 Rate Blood Pressure 102/55 104/50 101/52 O2 Sat by Pulse 89 90 89 Oximetry 09/30/20 09/30/20 09/30/20 04:45 05:00 05:15 Temperature Pulse Rate 108 H 106 H 109 H Pulse Rate [ From Monitor] Respiratory 18 18 17 Rate Blood Pressure 98/56 102/52 106/54 O2 Sat by Pulse 89 89 89 Oximetry 09/30/20 09/30/20 09/30/20 05:30 05:45 06:00 Temperature Pulse Rate 108 H 108 H 107 H Pulse Rate [ From Monitor] Respiratory 18 17 18 Rate Blood Pressure 104/57 98/54 106/54 O2 Sat by Pulse 90 88 88 Oximetry 09/30/20 09/30/20 09/30/20 06:05 06:06 06:15 Temperature Pulse Rate 105 H 105 H 107 H Pulse Rate [ From Monitor] Respiratory 17 Rate Blood Pressure 98/54 98/54 102/52 O2 Sat by Pulse 89 Oximetry 09/30/20 09/30/20 09/30/20 06:20 06:30 06:45 Temperature Pulse Rate 105 H 101 H Pulse Rate [ From Monitor] Respiratory 18 18 Rate Blood Pressure 120/57 100/57 90/39 O2 Sat by Pulse 88 88 82 L Oximetry 09/30/20 09/30/20 09/30/20 07:00 07:15 07:30 Temperature Pulse Rate 105 H 107 H 107 H Pulse Rate [ From Monitor] Respiratory 18 18 18 Rate Blood Pressure 100/50 98/52 99/51 O2 Sat by Pulse 89 90 89 Oximetry 09/30/20 09/30/20 09/30/20 07:45 08:00 08:15 Temperature 98.4 F Pulse Rate 108 H 107 H 107 H Pulse Rate [ 107 H From Monitor] Respiratory 18 18 18 Rate Blood Pressure 95/51 99/45 97/51 O2 Sat by Pulse 89 89 87 Oximetry 09/30/20 09/30/20 09/30/20 08:26 08:30 08:45 Temperature Pulse Rate 105 H 106 H 108 H Pulse Rate [ From Monitor] Respiratory 18 18 Rate Blood Pressure 97/51 93/52 98/54 O2 Sat by Pulse 87 88 88 Oximetry 09/30/20 09/30/20 09/30/20 09:00 09:15 09:30 Temperature Pulse Rate 108 H 107 H 107 H Pulse Rate [ From Monitor] Respiratory 18 18 18 Rate Blood Pressure 103/53 102/57 94/54 O2 Sat by Pulse 89 89 89 Oximetry 09/30/20 09/30/20 09/30/20 09:45 10:00 10:15 Temperature Pulse Rate 107 H 108 H 108 H Pulse Rate [ From Monitor] Respiratory 18 18 18 Rate Blood Pressure 102/56 99/50 98/48 O2 Sat by Pulse 90 89 90 Oximetry 09/30/20 09/30/20 09/30/20 10:30 10:45 11:18 Temperature Pulse Rate 107 H 107 H 110 H Pulse Rate [ From Monitor] Respiratory 18 18 Rate Blood Pressure 99/47 98/48 96/46 O2 Sat by Pulse 89 90 92 Oximetry 09/30/20 12:00 Temperature 98.3 F Pulse Rate Pulse Rate [ From Monitor] Respiratory Rate Blood Pressure O2 Sat by Pulse Oximetry Constitutional: appears uncomfortable, other (middle aged female with mildly increased respiratory effort at rest on MVS) Eyes: non-icteric ENT: oropharynx moist, other (ETT 26 cm JOSHUA) Neck: supple, no lymphadenopathy Effort: mildly labored Ascultation: Bilateral: diminished breath sounds, rhonchi Percussion: Bilateral: not dull Cardiovascular: regular rate and rhythm Gastrointestinal: normoactive bowel sounds, soft, non-tender, non-distended (protuberant) Integumentary: normal Extremities: no cyanosis, no edema, pink and warm, pulses normal Neurologic: non-focal exam (grossly), pupils equal and round, motor strength normal and, unable to assess, other (sedated) Psychiatric: other (lethargic) CBC and BMP: 10/01/20 10:34 10/01/20 10:34 ABG, PT/INR, D-dimer: ABG ABG pH 7.280 (7.320-7.450) L 09/30/20 07:59 POC ABG pCO2 74.7 mmHg (32.0-48.0) H 09/30/20 07:59 ABG pCO2 74.6 mm Hg 09/29/20 02:50 POC ABG pO2 55.3 mmHg (83-108) L 09/30/20 07:59 ABG pO2 63.6 mm Hg (80.0-90.0) L 09/29/20 02:50 POC ABG HCO3 34.3 09/30/20 07:59 ABG O2 Saturation 86.7 (0-100) 09/30/20 07:59 PT/INR, D-dimer PT 13.3 Sec. (12.2-14.9) 09/29/20 13:56 INR 0.95 (0.87-1.13) 09/29/20 13:56 D-Dimer 1776.66 ng/mlDDU (0-234) H 09/30/20 07:19 Abnormal lab findings: Abnormal Labs 09/15/20 09/15/20 09/15/20 18:46 18:46 18:46 WBC RBC Hgb 14.4 H MCV MCH MCHC RDW Lymph % (Auto) Lymph # (Auto) Seg Neutrophils % Seg Neutrophils # PT INR APTT D-Dimer Heparin Anti-Xa Level ABG pH POC ABG pCO2 POC ABG pO2 ABG pO2 ABG HCO3 ABG O2 Saturation ABG Base Excess ABG Hemoglobin ABG Oxyhemoglobin ABG Sodium ABG Potassium ABG Chloride ABG Glucose Oxyhemoglobin Carboxyhemoglobin Sodium 128 L Potassium 3.2 L Chloride 89.3 L Carbon Dioxide BUN Creatinine Glucose 388 H POC Glucose Lactic Acid Calcium 8.2 L Phosphorus Ferritin AST 69 H Alkaline Phosphatase Ammonia Lactate Dehydrogenase Total Creatine Kinase CK-MB (CK-2) Troponin T C-Reactive Protein Total Protein Albumin 3.6 L Triglycerides HDL Cholesterol TSH 34.670 H Free T4 Arterial Blood Glucose Arterial Blood Ionized Calcium Urine WBC (Auto) Salicylates Acetaminophen Coronavirus (PCR) 09/15/20 09/15/20 09/15/20 18:46 18:46 18:46 WBC RBC Hgb MCV MCH MCHC RDW Lymph % (Auto) Lymph # (Auto) Seg Neutrophils % Seg Neutrophils # PT INR APTT D-Dimer Heparin Anti-Xa Level ABG pH POC ABG pCO2 POC ABG pO2 ABG pO2 ABG HCO3 ABG O2 Saturation ABG Base Excess ABG Hemoglobin ABG Oxyhemoglobin ABG Sodium ABG Potassium ABG Chloride ABG Glucose Oxyhemoglobin Carboxyhemoglobin Sodium Potassium Chloride Carbon Dioxide BUN Creatinine Glucose POC Glucose Lactic Acid Calcium Phosphorus Ferritin AST Alkaline Phosphatase Ammonia 23.0 L Lactate Dehydrogenase Total Creatine Kinase CK-MB (CK-2) Troponin T C-Reactive Protein Total Protein Albumin Triglycerides HDL Cholesterol TSH Free T4 Arterial Blood Glucose Arterial Blood Ionized Calcium Urine WBC (Auto) Salicylates < 0.3 L Acetaminophen 9.1 L Coronavirus (PCR) 09/15/20 09/15/20 09/15/20 19:38 19:40 19:43 WBC RBC Hgb MCV MCH MCHC RDW Lymph % (Auto) Lymph # (Auto) Seg Neutrophils % Seg Neutrophils # PT INR APTT D-Dimer Heparin Anti-Xa Level ABG pH POC ABG pCO2 POC ABG pO2 ABG pO2 ABG HCO3 ABG O2 Saturation ABG Base Excess ABG Hemoglobin ABG Oxyhemoglobin ABG Sodium ABG Potassium ABG Chloride ABG Glucose Oxyhemoglobin Carboxyhemoglobin Sodium Potassium Chloride Carbon Dioxide BUN Creatinine Glucose POC Glucose 398 H Lactic Acid 2.70 H* Calcium Phosphorus Ferritin AST Alkaline Phosphatase Ammonia Lactate Dehydrogenase Total Creatine Kinase CK-MB (CK-2) Troponin T C-Reactive Protein Total Protein Albumin Triglycerides HDL Cholesterol TSH Free T4 0.10 L Arterial Blood Glucose Arterial Blood Ionized Calcium Urine WBC (Auto) Salicylates Acetaminophen Coronavirus (PCR) 09/15/20 09/15/20 09/16/20 20:02 Unknown 04:47 WBC RBC Hgb 14.8 H MCV MCH 33 H MCHC 36 H RDW Lymph % (Auto) 7.3 L Lymph # (Auto) 0.8 L Seg Neutrophils % 85.7 H Seg Neutrophils # 8.9 H PT INR APTT D-Dimer Heparin Anti-Xa Level ABG pH POC ABG pCO2 31.1 L POC ABG pO2 46.9 L ABG pO2 ABG HCO3 ABG O2 Saturation ABG Base Excess ABG Hemoglobin ABG Oxyhemoglobin 82.8 L ABG Sodium 129.8 L ABG Potassium 3.1 L ABG Chloride ABG Glucose 374 H Oxyhemoglobin Carboxyhemoglobin Sodium Potassium Chloride Carbon Dioxide BUN Creatinine Glucose POC Glucose Lactic Acid Calcium Phosphorus Ferritin AST Alkaline Phosphatase Ammonia Lactate Dehydrogenase Total Creatine Kinase CK-MB (CK-2) Troponin T C-Reactive Protein Total Protein Albumin Triglycerides HDL Cholesterol TSH Free T4 Arterial Blood Glucose 374 H Arterial Blood Ionized Calcium Urine WBC (Auto) > 182.0 H Salicylates Acetaminophen Coronavirus (PCR) 09/16/20 09/16/20 09/16/20 04:47 07:20 08:00 WBC RBC Hgb MCV MCH MCHC RDW Lymph % (Auto) Lymph # (Auto) Seg Neutrophils % Seg Neutrophils # PT INR APTT D-Dimer Heparin Anti-Xa Level ABG pH POC ABG pCO2 POC ABG pO2 ABG pO2 ABG HCO3 ABG O2 Saturation ABG Base Excess ABG Hemoglobin ABG Oxyhemoglobin ABG Sodium ABG Potassium ABG Chloride ABG Glucose Oxyhemoglobin Carboxyhemoglobin Sodium 135 L D Potassium Chloride 94.1 L Carbon Dioxide BUN Creatinine Glucose 418 H POC Glucose 403 H Lactic Acid Calcium 8.3 L Phosphorus Ferritin AST Alkaline Phosphatase Ammonia Lactate Dehydrogenase Total Creatine Kinase CK-MB (CK-2) Troponin T C-Reactive Protein Total Protein Albumin Triglycerides HDL Cholesterol TSH Free T4 Arterial Blood Glucose Arterial Blood Ionized Calcium Urine WBC (Auto) Salicylates Acetaminophen Coronavirus (PCR) Positive A 09/16/20 09/16/20 09/16/20 11:43 16:17 21:38 WBC RBC Hgb MCV MCH MCHC RDW Lymph % (Auto) Lymph # (Auto) Seg Neutrophils % Seg Neutrophils # PT INR APTT D-Dimer 702.65 H Heparin Anti-Xa Level ABG pH POC ABG pCO2 POC ABG pO2 ABG pO2 ABG HCO3 ABG O2 Saturation ABG Base Excess ABG Hemoglobin ABG Oxyhemoglobin ABG Sodium ABG Potassium ABG Chloride ABG Glucose Oxyhemoglobin Carboxyhemoglobin Sodium Potassium Chloride Carbon Dioxide BUN Creatinine Glucose POC Glucose 417 H 353 H Lactic Acid Calcium Phosphorus Ferritin AST Alkaline Phosphatase Ammonia Lactate Dehydrogenase Total Creatine Kinase CK-MB (CK-2) Troponin T C-Reactive Protein Total Protein Albumin Triglycerides HDL Cholesterol TSH Free T4 Arterial Blood Glucose Arterial Blood Ionized Calcium Urine WBC (Auto) Salicylates Acetaminophen Coronavirus (PCR) 09/16/20 09/16/20 09/16/20 21:38 21:38 21:38 WBC RBC Hgb MCV MCH MCHC RDW Lymph % (Auto) Lymph # (Auto) Seg Neutrophils % Seg Neutrophils # PT INR APTT D-Dimer Heparin Anti-Xa Level ABG pH POC ABG pCO2 POC ABG pO2 ABG pO2 ABG HCO3 ABG O2 Saturation ABG Base Excess ABG Hemoglobin ABG Oxyhemoglobin ABG Sodium ABG Potassium ABG Chloride ABG Glucose Oxyhemoglobin Carboxyhemoglobin Sodium Potassium Chloride Carbon Dioxide BUN Creatinine Glucose POC Glucose Lactic Acid Calcium Phosphorus Ferritin 1089.0 H AST Alkaline Phosphatase Ammonia Lactate Dehydrogenase 722 H Total Creatine Kinase CK-MB (CK-2) Troponin T C-Reactive Protein 6.80 H Total Protein Albumin Triglycerides HDL Cholesterol TSH Free T4 Arterial Blood Glucose Arterial Blood Ionized Calcium Urine WBC (Auto) Salicylates Acetaminophen 5.0 L Coronavirus (PCR) 09/16/20 09/16/20 09/17/20 21:38 22:24 04:59 WBC RBC Hgb MCV MCH MCHC RDW Lymph % (Auto) Lymph # (Auto) Seg Neutrophils % Seg Neutrophils # PT INR APTT D-Dimer Heparin Anti-Xa Level ABG pH POC ABG pCO2 POC ABG pO2 ABG pO2 ABG HCO3 ABG O2 Saturation ABG Base Excess ABG Hemoglobin ABG Oxyhemoglobin ABG Sodium ABG Potassium ABG Chloride ABG Glucose Oxyhemoglobin Carboxyhemoglobin Sodium 134 L 135 L Potassium 3.5 L 3.0 L Chloride 95.1 L 97.2 L Carbon Dioxide BUN Creatinine Glucose 288 H 149 H POC Glucose 307 H Lactic Acid Calcium 8.2 L Phosphorus Ferritin AST 43 H 49 H Alkaline Phosphatase Ammonia Lactate Dehydrogenase Total Creatine Kinase CK-MB (CK-2) Troponin T C-Reactive Protein Total Protein Albumin 3.7 L 3.3 L Triglycerides HDL Cholesterol TSH Free T4 Arterial Blood Glucose Arterial Blood Ionized Calcium Urine WBC (Auto) Salicylates Acetaminophen Coronavirus (PCR) 09/17/20 09/17/20 09/17/20 12:25 16:57 21:30 WBC RBC Hgb MCV MCH MCHC RDW Lymph % (Auto) Lymph # (Auto) Seg Neutrophils % Seg Neutrophils # PT INR APTT D-Dimer Heparin Anti-Xa Level ABG pH POC ABG pCO2 POC ABG pO2 ABG pO2 ABG HCO3 ABG O2 Saturation ABG Base Excess ABG Hemoglobin ABG Oxyhemoglobin ABG Sodium ABG Potassium ABG Chloride ABG Glucose Oxyhemoglobin Carboxyhemoglobin Sodium Potassium Chloride Carbon Dioxide BUN Creatinine Glucose POC Glucose 199 H 313 H 304 H Lactic Acid Calcium Phosphorus Ferritin AST Alkaline Phosphatase Ammonia Lactate Dehydrogenase Total Creatine Kinase CK-MB (CK-2) Troponin T C-Reactive Protein Total Protein Albumin Triglycerides HDL Cholesterol TSH Free T4 Arterial Blood Glucose Arterial Blood Ionized Calcium Urine WBC (Auto) Salicylates Acetaminophen Coronavirus (PCR) 09/18/20 09/18/20 09/18/20 08:01 08:05 12:36 WBC RBC Hgb MCV MCH MCHC RDW Lymph % (Auto) Lymph # (Auto) Seg Neutrophils % Seg Neutrophils # PT INR APTT D-Dimer Heparin Anti-Xa Level ABG pH POC ABG pCO2 POC ABG pO2 ABG pO2 ABG HCO3 ABG O2 Saturation ABG Base Excess ABG Hemoglobin ABG Oxyhemoglobin ABG Sodium ABG Potassium ABG Chloride ABG Glucose Oxyhemoglobin Carboxyhemoglobin Sodium Potassium 3.1 L Chloride Carbon Dioxide BUN Creatinine Glucose 112 H POC Glucose 125 H 159 H Lactic Acid Calcium 8.3 L Phosphorus Ferritin AST 47 H Alkaline Phosphatase Ammonia Lactate Dehydrogenase Total Creatine Kinase CK-MB (CK-2) Troponin T C-Reactive Protein Total Protein Albumin 3.3 L Triglycerides HDL Cholesterol TSH Free T4 Arterial Blood Glucose Arterial Blood Ionized Calcium Urine WBC (Auto) Salicylates Acetaminophen Coronavirus (PCR) 09/18/20 09/18/20 09/19/20 16:57 21:40 06:10 WBC RBC Hgb MCV MCH MCHC RDW Lymph % (Auto) Lymph # (Auto) Seg Neutrophils % Seg Neutrophils # PT INR APTT D-Dimer Heparin Anti-Xa Level ABG pH POC ABG pCO2 POC ABG pO2 ABG pO2 ABG HCO3 ABG O2 Saturation ABG Base Excess ABG Hemoglobin ABG Oxyhemoglobin ABG Sodium ABG Potassium ABG Chloride ABG Glucose Oxyhemoglobin Carboxyhemoglobin Sodium Potassium 2.8 L* Chloride 97.7 L Carbon Dioxide BUN Creatinine 0.4 L Glucose 146 H POC Glucose 180 H 225 H Lactic Acid Calcium 8.2 L Phosphorus Ferritin AST 45 H Alkaline Phosphatase Ammonia Lactate Dehydrogenase Total Creatine Kinase CK-MB (CK-2) Troponin T C-Reactive Protein Total Protein Albumin 3.5 L Triglycerides HDL Cholesterol TSH Free T4 Arterial Blood Glucose Arterial Blood Ionized Calcium Urine WBC (Auto) Salicylates Acetaminophen Coronavirus (PCR) 09/19/20 09/19/20 09/19/20 08:06 11:14 17:50 WBC RBC Hgb MCV MCH MCHC RDW Lymph % (Auto) Lymph # (Auto) Seg Neutrophils % Seg Neutrophils # PT INR APTT D-Dimer Heparin Anti-Xa Level ABG pH POC ABG pCO2 POC ABG pO2 ABG pO2 ABG HCO3 ABG O2 Saturation ABG Base Excess ABG Hemoglobin ABG Oxyhemoglobin ABG Sodium ABG Potassium ABG Chloride ABG Glucose Oxyhemoglobin Carboxyhemoglobin Sodium Potassium Chloride Carbon Dioxide BUN Creatinine Glucose POC Glucose 175 H 210 H 291 H Lactic Acid Calcium Phosphorus Ferritin AST Alkaline Phosphatase Ammonia Lactate Dehydrogenase Total Creatine Kinase CK-MB (CK-2) Troponin T C-Reactive Protein Total Protein Albumin Triglycerides HDL Cholesterol TSH Free T4 Arterial Blood Glucose Arterial Blood Ionized Calcium Urine WBC (Auto) Salicylates Acetaminophen Coronavirus (PCR) 09/19/20 09/20/20 09/20/20 21:30 05:23 05:23 WBC RBC Hgb MCV MCH MCHC RDW Lymph % (Auto) Lymph # (Auto) Seg Neutrophils % Seg Neutrophils # PT INR APTT D-Dimer Heparin Anti-Xa Level ABG pH POC ABG pCO2 POC ABG pO2 ABG pO2 ABG HCO3 ABG O2 Saturation ABG Base Excess ABG Hemoglobin ABG Oxyhemoglobin ABG Sodium ABG Potassium ABG Chloride ABG Glucose Oxyhemoglobin Carboxyhemoglobin Sodium 131 L Potassium 3.3 L D Chloride 95.4 L Carbon Dioxide 18 L BUN Creatinine 0.4 L Glucose 169 H POC Glucose 232 H Lactic Acid Calcium 8.3 L Phosphorus Ferritin 738.9 H AST Alkaline Phosphatase Ammonia Lactate Dehydrogenase 882 H Total Creatine Kinase CK-MB (CK-2) Troponin T C-Reactive Protein 11.40 H Total Protein Albumin Triglycerides HDL Cholesterol TSH Free T4 Arterial Blood Glucose Arterial Blood Ionized Calcium Urine WBC (Auto) Salicylates Acetaminophen Coronavirus (PCR) 09/20/20 09/20/20 09/20/20 05:23 06:50 10:46 WBC RBC Hgb MCV MCH MCHC RDW Lymph % (Auto) Lymph # (Auto) Seg Neutrophils % Seg Neutrophils # PT INR APTT D-Dimer 4940.20 H Heparin Anti-Xa Level ABG pH 7.289 L POC ABG pCO2 POC ABG pO2 50.1 L ABG pO2 ABG HCO3 ABG O2 Saturation ABG Base Excess ABG Hemoglobin ABG Oxyhemoglobin 80.8 L ABG Sodium 130.8 L ABG Potassium ABG Chloride 97.0 L ABG Glucose 275 H Oxyhemoglobin Carboxyhemoglobin Sodium Potassium Chloride Carbon Dioxide BUN Creatinine Glucose POC Glucose 242 H Lactic Acid Calcium Phosphorus Ferritin AST Alkaline Phosphatase Ammonia Lactate Dehydrogenase Total Creatine Kinase CK-MB (CK-2) Troponin T C-Reactive Protein Total Protein Albumin Triglycerides HDL Cholesterol TSH Free T4 Arterial Blood Glucose 275 H Arterial Blood Ionized Calcium 4.2 L Urine WBC (Auto) Salicylates Acetaminophen Coronavirus (PCR) 09/20/20 09/20/20 09/20/20 11:58 16:30 16:41 WBC RBC Hgb MCV MCH MCHC RDW Lymph % (Auto) Lymph # (Auto) Seg Neutrophils % Seg Neutrophils # PT INR APTT D-Dimer Heparin Anti-Xa Level ABG pH POC ABG pCO2 27.8 L POC ABG pO2 79.7 L ABG pO2 ABG HCO3 ABG O2 Saturation ABG Base Excess ABG Hemoglobin ABG Oxyhemoglobin ABG Sodium 131.0 L ABG Potassium ABG Chloride ABG Glucose 297 H Oxyhemoglobin Carboxyhemoglobin Sodium Potassium Chloride Carbon Dioxide BUN Creatinine Glucose POC Glucose 262 H 283 H Lactic Acid Calcium Phosphorus Ferritin AST Alkaline Phosphatase Ammonia Lactate Dehydrogenase Total Creatine Kinase CK-MB (CK-2) Troponin T C-Reactive Protein Total Protein Albumin Triglycerides HDL Cholesterol TSH Free T4 Arterial Blood Glucose 297 H Arterial Blood Ionized Calcium 4.3 L Urine WBC (Auto) Salicylates Acetaminophen Coronavirus (PCR) 09/20/20 09/20/20 09/21/20 17:26 21:29 00:46 WBC RBC Hgb MCV MCH MCHC RDW Lymph % (Auto) Lymph # (Auto) Seg Neutrophils % Seg Neutrophils # PT INR APTT D-Dimer Heparin Anti-Xa Level ABG pH POC ABG pCO2 POC ABG pO2 ABG pO2 ABG HCO3 ABG O2 Saturation ABG Base Excess ABG Hemoglobin ABG Oxyhemoglobin ABG Sodium ABG Potassium ABG Chloride ABG Glucose Oxyhemoglobin Carboxyhemoglobin Sodium Potassium Chloride Carbon Dioxide BUN Creatinine Glucose POC Glucose 297 H 248 H Lactic Acid Calcium Phosphorus Ferritin AST Alkaline Phosphatase Ammonia Lactate Dehydrogenase Total Creatine Kinase CK-MB (CK-2) Troponin T 0.444 H* C-Reactive Protein Total Protein Albumin Triglycerides 156 H HDL Cholesterol 22 L TSH Free T4 Arterial Blood Glucose Arterial Blood Ionized Calcium Urine WBC (Auto) Salicylates Acetaminophen Coronavirus (PCR) 09/21/20 09/21/20 09/21/20 00:46 02:14 03:22 WBC RBC Hgb MCV MCH MCHC RDW Lymph % (Auto) Lymph # (Auto) Seg Neutrophils % Seg Neutrophils # PT 20.0 H INR 1.65 H APTT 38.2 H D-Dimer Heparin Anti-Xa Level ABG pH POC ABG pCO2 POC ABG pO2 70.3 L ABG pO2 ABG HCO3 ABG O2 Saturation ABG Base Excess ABG Hemoglobin ABG Oxyhemoglobin 92.2 L ABG Sodium 134.2 L ABG Potassium ABG Chloride ABG Glucose 187 H Oxyhemoglobin Carboxyhemoglobin Sodium 134 L Potassium Chloride Carbon Dioxide 18 L BUN 23 H Creatinine Glucose 198 H POC Glucose Lactic Acid Calcium 6.7 L D Phosphorus Ferritin AST Alkaline Phosphatase Ammonia Lactate Dehydrogenase Total Creatine Kinase CK-MB (CK-2) Troponin T C-Reactive Protein Total Protein Albumin Triglycerides HDL Cholesterol TSH Free T4 Arterial Blood Glucose 187 H Arterial Blood Ionized Calcium 4.2 L Urine WBC (Auto) Salicylates Acetaminophen Coronavirus (PCR) 09/21/20 09/21/20 09/21/20 07:26 08:15 11:21 WBC RBC Hgb MCV MCH MCHC RDW Lymph % (Auto) Lymph # (Auto) Seg Neutrophils % Seg Neutrophils # PT INR APTT D-Dimer Heparin Anti-Xa Level 0.97 H ABG pH POC ABG pCO2 POC ABG pO2 ABG pO2 ABG HCO3 ABG O2 Saturation ABG Base Excess ABG Hemoglobin ABG Oxyhemoglobin ABG Sodium ABG Potassium ABG Chloride ABG Glucose Oxyhemoglobin Carboxyhemoglobin Sodium Potassium Chloride Carbon Dioxide BUN Creatinine Glucose POC Glucose 157 H 153 H Lactic Acid Calcium Phosphorus Ferritin AST Alkaline Phosphatase Ammonia Lactate Dehydrogenase Total Creatine Kinase CK-MB (CK-2) Troponin T C-Reactive Protein Total Protein Albumin Triglycerides HDL Cholesterol TSH Free T4 Arterial Blood Glucose Arterial Blood Ionized Calcium Urine WBC (Auto) Salicylates Acetaminophen Coronavirus (PCR) 09/21/20 09/21/20 09/21/20 15:16 15:59 18:58 WBC RBC Hgb MCV MCH MCHC RDW Lymph % (Auto) Lymph # (Auto) Seg Neutrophils % Seg Neutrophils # PT INR APTT D-Dimer Heparin Anti-Xa Level 0.90 H ABG pH POC ABG pCO2 POC ABG pO2 ABG pO2 ABG HCO3 ABG O2 Saturation ABG Base Excess ABG Hemoglobin ABG Oxyhemoglobin ABG Sodium ABG Potassium ABG Chloride ABG Glucose Oxyhemoglobin Carboxyhemoglobin Sodium Potassium Chloride Carbon Dioxide BUN Creatinine Glucose POC Glucose 192 H Lactic Acid Calcium Phosphorus Ferritin AST Alkaline Phosphatase Ammonia Lactate Dehydrogenase Total Creatine Kinase CK-MB (CK-2) Troponin T C-Reactive Protein 8.40 H Total Protein Albumin Triglycerides HDL Cholesterol TSH Free T4 Arterial Blood Glucose Arterial Blood Ionized Calcium Urine WBC (Auto) Salicylates Acetaminophen Coronavirus (PCR) 09/21/20 09/21/20 09/22/20 18:58 21:14 01:33 WBC RBC Hgb MCV MCH MCHC RDW Lymph % (Auto) Lymph # (Auto) Seg Neutrophils % Seg Neutrophils # PT INR APTT D-Dimer Heparin Anti-Xa Level 0.78 H ABG pH POC ABG pCO2 POC ABG pO2 ABG pO2 ABG HCO3 ABG O2 Saturation ABG Base Excess ABG Hemoglobin ABG Oxyhemoglobin ABG Sodium ABG Potassium ABG Chloride ABG Glucose Oxyhemoglobin Carboxyhemoglobin Sodium Potassium Chloride Carbon Dioxide BUN Creatinine Glucose POC Glucose 172 H Lactic Acid Calcium Phosphorus Ferritin AST Alkaline Phosphatase Ammonia Lactate Dehydrogenase Total Creatine Kinase 536 H CK-MB (CK-2) 17.8 H Troponin T 0.793 H* D C-Reactive Protein Total Protein Albumin Triglycerides HDL Cholesterol TSH Free T4 Arterial Blood Glucose Arterial Blood Ionized Calcium Urine WBC (Auto) Salicylates Acetaminophen Coronavirus (PCR) 09/22/20 09/22/20 09/22/20 04:15 07:15 10:22 WBC RBC Hgb MCV MCH MCHC RDW Lymph % (Auto) Lymph # (Auto) Seg Neutrophils % Seg Neutrophils # PT INR APTT D-Dimer Heparin Anti-Xa Level ABG pH POC ABG pCO2 POC ABG pO2 ABG pO2 ABG HCO3 ABG O2 Saturation ABG Base Excess ABG Hemoglobin ABG Oxyhemoglobin ABG Sodium 132.9 L ABG Potassium ABG Chloride ABG Glucose 155 H Oxyhemoglobin Carboxyhemoglobin Sodium Potassium Chloride Carbon Dioxide BUN Creatinine Glucose POC Glucose 159 H Lactic Acid Calcium Phosphorus Ferritin AST Alkaline Phosphatase Ammonia Lactate Dehydrogenase Total Creatine Kinase 1159 H CK-MB (CK-2) 14.4 H Troponin T 0.501 H* D C-Reactive Protein Total Protein Albumin Triglycerides HDL Cholesterol TSH Free T4 Arterial Blood Glucose 155 H Arterial Blood Ionized Calcium 4.3 L Urine WBC (Auto) Salicylates Acetaminophen Coronavirus (PCR) 09/22/20 09/22/20 09/22/20 11:34 16:35 17:44 WBC RBC Hgb MCV MCH MCHC RDW Lymph % (Auto) Lymph # (Auto) Seg Neutrophils % Seg Neutrophils # PT INR APTT D-Dimer Heparin Anti-Xa Level 0.15 L ABG pH POC ABG pCO2 POC ABG pO2 ABG pO2 ABG HCO3 ABG O2 Saturation ABG Base Excess ABG Hemoglobin ABG Oxyhemoglobin ABG Sodium ABG Potassium ABG Chloride ABG Glucose Oxyhemoglobin Carboxyhemoglobin Sodium Potassium Chloride Carbon Dioxide BUN Creatinine Glucose POC Glucose 206 H 273 H Lactic Acid Calcium Phosphorus Ferritin AST Alkaline Phosphatase Ammonia Lactate Dehydrogenase Total Creatine Kinase CK-MB (CK-2) Troponin T C-Reactive Protein Total Protein Albumin Triglycerides HDL Cholesterol TSH Free T4 Arterial Blood Glucose Arterial Blood Ionized Calcium Urine WBC (Auto) Salicylates Acetaminophen Coronavirus (PCR) 09/23/20 09/23/2009/23/21 00:32 04:00 05:11 WBC RBC Hgb MCV MCH MCHC RDW Lymph % (Auto) Lymph # (Auto) Seg Neutrophils % Seg Neutrophils # PT INR APTT D-Dimer Heparin Anti-Xa Level ABG pH POC ABG pCO2 POC ABG pO2 75.7 L ABG pO2 ABG HCO3 ABG O2 Saturation ABG Base Excess ABG Hemoglobin ABG Oxyhemoglobin ABG Sodium 135.0 L ABG Potassium ABG Chloride ABG Glucose 237 H Oxyhemoglobin Carboxyhemoglobin Sodium Potassium Chloride Carbon Dioxide BUN Creatinine Glucose POC Glucose 287 H 210 H Lactic Acid Calcium Phosphorus Ferritin AST Alkaline Phosphatase Ammonia Lactate Dehydrogenase Total Creatine Kinase CK-MB (CK-2) Troponin T C-Reactive Protein Total Protein Albumin Triglycerides HDL Cholesterol TSH Free T4 Arterial Blood Glucose 237 H Arterial Blood Ionized Calcium 4.5 L Urine WBC (Auto) Salicylates Acetaminophen Coronavirus (PCR) 09/23/20 09/23/20 09/23/20 08:02 10:03 10:03 WBC 13.8 H RBC Hgb MCV MCH MCHC RDW Lymph % (Auto) Lymph # (Auto) Seg Neutrophils % Seg Neutrophils # PT INR APTT D-Dimer 2573.89 H Heparin Anti-Xa Level ABG pH POC ABG pCO2 POC ABG pO2 ABG pO2 ABG HCO3 ABG O2 Saturation ABG Base Excess ABG Hemoglobin ABG Oxyhemoglobin ABG Sodium ABG Potassium ABG Chloride ABG Glucose Oxyhemoglobin Carboxyhemoglobin Sodium Potassium Chloride Carbon Dioxide BUN Creatinine Glucose POC Glucose 268 H Lactic Acid Calcium Phosphorus Ferritin AST Alkaline Phosphatase Ammonia Lactate Dehydrogenase Total Creatine Kinase CK-MB (CK-2) Troponin T C-Reactive Protein Total Protein Albumin Triglycerides HDL Cholesterol TSH Free T4 Arterial Blood Glucose Arterial Blood Ionized Calcium Urine WBC (Auto) Salicylates Acetaminophen Coronavirus (PCR) 09/23/20 09/23/20 09/23/20 10:03 10:03 10:03 WBC RBC Hgb MCV MCH MCHC RDW Lymph % (Auto) Lymph # (Auto) Seg Neutrophils % Seg Neutrophils # PT INR APTT D-Dimer Heparin Anti-Xa Level 0.12 L ABG pH POC ABG pCO2 POC ABG pO2 ABG pO2 ABG HCO3 ABG O2 Saturation ABG Base Excess ABG Hemoglobin ABG Oxyhemoglobin ABG Sodium ABG Potassium ABG Chloride ABG Glucose Oxyhemoglobin Carboxyhemoglobin Sodium Potassium Chloride Carbon Dioxide BUN 26 H Creatinine Glucose 271 H POC Glucose Lactic Acid Calcium 8.2 L D Phosphorus Ferritin 1084.0 H AST Alkaline Phosphatase Ammonia Lactate Dehydrogenase 1592 H Total Creatine Kinase CK-MB (CK-2) Troponin T C-Reactive Protein 9.10 H Total Protein Albumin Triglycerides HDL Cholesterol TSH Free T4 Arterial Blood Glucose Arterial Blood Ionized Calcium Urine WBC (Auto) Salicylates Acetaminophen Coronavirus (PCR) 09/23/20 09/23/20 09/23/20 12:17 18:30 20:01 WBC RBC Hgb MCV MCH MCHC RDW Lymph % (Auto) Lymph # (Auto) Seg Neutrophils % Seg Neutrophils # PT INR APTT D-Dimer Heparin Anti-Xa Level 0.15 L ABG pH POC ABG pCO2 POC ABG pO2 ABG pO2 ABG HCO3 ABG O2 Saturation ABG Base Excess ABG Hemoglobin ABG Oxyhemoglobin ABG Sodium ABG Potassium ABG Chloride ABG Glucose Oxyhemoglobin Carboxyhemoglobin Sodium Potassium Chloride Carbon Dioxide BUN Creatinine Glucose POC Glucose 282 H 392 H Lactic Acid Calcium Phosphorus Ferritin AST Alkaline Phosphatase Ammonia Lactate Dehydrogenase Total Creatine Kinase CK-MB (CK-2) Troponin T C-Reactive Protein Total Protein Albumin Triglycerides HDL Cholesterol TSH Free T4 Arterial Blood Glucose Arterial Blood Ionized Calcium Urine WBC (Auto) Salicylates Acetaminophen Coronavirus (PCR) 09/23/20 09/23/20 09/24/20 21:08 23:58 04:00 WBC RBC Hgb MCV MCH MCHC RDW Lymph % (Auto) Lymph # (Auto) Seg Neutrophils % Seg Neutrophils # PT INR APTT D-Dimer Heparin Anti-Xa Level ABG pH POC ABG pCO2 55.6 H POC ABG pO2 75.6 L ABG pO2 ABG HCO3 ABG O2 Saturation ABG Base Excess ABG Hemoglobin ABG Oxyhemoglobin ABG Sodium 135.9 L ABG Potassium ABG Chloride ABG Glucose 330 H Oxyhemoglobin Carboxyhemoglobin Sodium Potassium Chloride Carbon Dioxide BUN Creatinine Glucose POC Glucose 373 H 391 H Lactic Acid Calcium Phosphorus Ferritin AST Alkaline Phosphatase Ammonia Lactate Dehydrogenase Total Creatine Kinase CK-MB (CK-2) Troponin T C-Reactive Protein Total Protein Albumin Triglycerides HDL Cholesterol TSH Free T4 Arterial Blood Glucose 330 H Arterial Blood Ionized Calcium 4.4 L Urine WBC (Auto) Salicylates Acetaminophen Coronavirus (PCR) 09/24/20 09/24/20 09/24/20 04:30 04:30 05:04 WBC 12.4 H RBC Hgb MCV MCH MCHC RDW Lymph % (Auto) Lymph # (Auto) Seg Neutrophils % Seg Neutrophils # PT INR APTT D-Dimer Heparin Anti-Xa Level ABG pH POC ABG pCO2 POC ABG pO2 ABG pO2 ABG HCO3 ABG O2 Saturation ABG Base Excess ABG Hemoglobin ABG Oxyhemoglobin ABG Sodium ABG Potassium ABG Chloride ABG Glucose Oxyhemoglobin Carboxyhemoglobin Sodium Potassium Chloride Carbon Dioxide BUN 25 H Creatinine Glucose 337 H POC Glucose 316 H Lactic Acid Calcium 8.0 L Phosphorus Ferritin AST Alkaline Phosphatase Ammonia Lactate Dehydrogenase Total Creatine Kinase CK-MB (CK-2) Troponin T C-Reactive Protein Total Protein Albumin Triglycerides HDL Cholesterol TSH Free T4 Arterial Blood Glucose Arterial Blood Ionized Calcium Urine WBC (Auto) Salicylates Acetaminophen Coronavirus (PCR) 09/24/20 09/24/20 09/24/20 11:41 17:32 23:41 WBC RBC Hgb MCV MCH MCHC RDW Lymph % (Auto) Lymph # (Auto) Seg Neutrophils % Seg Neutrophils # PT INR APTT D-Dimer Heparin Anti-Xa Level ABG pH POC ABG pCO2 POC ABG pO2 ABG pO2 ABG HCO3 ABG O2 Saturation ABG Base Excess ABG Hemoglobin ABG Oxyhemoglobin ABG Sodium ABG Potassium ABG Chloride ABG Glucose Oxyhemoglobin Carboxyhemoglobin Sodium Potassium Chloride Carbon Dioxide BUN Creatinine Glucose POC Glucose 240 H 271 H 349 H Lactic Acid Calcium Phosphorus Ferritin AST Alkaline Phosphatase Ammonia Lactate Dehydrogenase Total Creatine Kinase CK-MB (CK-2) Troponin T C-Reactive Protein Total Protein Albumin Triglycerides HDL Cholesterol TSH Free T4 Arterial Blood Glucose Arterial Blood Ionized Calcium Urine WBC (Auto) Salicylates Acetaminophen Coronavirus (PCR) 09/25/20 09/25/20 09/25/20 05:11 09:43 09:43 WBC RBC Hgb MCV MCH MCHC RDW 15.4 H Lymph % (Auto) Lymph # (Auto) Seg Neutrophils % Seg Neutrophils # PT INR APTT D-Dimer 1481.03 H Heparin Anti-Xa Level ABG pH POC ABG pCO2 POC ABG pO2 ABG pO2 ABG HCO3 ABG O2 Saturation ABG Base Excess ABG Hemoglobin ABG Oxyhemoglobin ABG Sodium ABG Potassium ABG Chloride ABG Glucose Oxyhemoglobin Carboxyhemoglobin Sodium Potassium Chloride Carbon Dioxide BUN Creatinine Glucose POC Glucose 319 H Lactic Acid Calcium Phosphorus Ferritin AST Alkaline Phosphatase Ammonia Lactate Dehydrogenase Total Creatine Kinase CK-MB (CK-2) Troponin T C-Reactive Protein Total Protein Albumin Triglycerides HDL Cholesterol TSH Free T4 Arterial Blood Glucose Arterial Blood Ionized Calcium Urine WBC (Auto) Salicylates Acetaminophen Coronavirus (PCR) 09/25/20 09/25/20 09/25/20 09:43 09:43 09:43 WBC RBC Hgb MCV MCH MCHC RDW Lymph % (Auto) Lymph # (Auto) Seg Neutrophils % Seg Neutrophils # PT INR APTT D-Dimer Heparin Anti-Xa Level 0.10 L ABG pH POC ABG pCO2 POC ABG pO2 ABG pO2 ABG HCO3 ABG O2 Saturation ABG Base Excess ABG Hemoglobin ABG Oxyhemoglobin ABG Sodium ABG Potassium ABG Chloride ABG Glucose Oxyhemoglobin Carboxyhemoglobin Sodium Potassium Chloride Carbon Dioxide 33 H BUN 26 H Creatinine Glucose 306 H POC Glucose Lactic Acid Calcium 8.1 L Phosphorus Ferritin 670.5 H AST Alkaline Phosphatase Ammonia Lactate Dehydrogenase 948 H Total Creatine Kinase CK-MB (CK-2) Troponin T C-Reactive Protein 6.70 H Total Protein Albumin Triglycerides HDL Cholesterol TSH Free T4 Arterial Blood Glucose Arterial Blood Ionized Calcium Urine WBC (Auto) Salicylates Acetaminophen Coronavirus (PCR) 09/25/20 09/25/20 09/25/20 11:52 13:38 17:37 WBC RBC Hgb MCV MCH MCHC RDW Lymph % (Auto) Lymph # (Auto) Seg Neutrophils % Seg Neutrophils # PT INR APTT D-Dimer Heparin Anti-Xa Level ABG pH POC ABG pCO2 60.9 H POC ABG pO2 59.7 L ABG pO2 ABG HCO3 ABG O2 Saturation ABG Base Excess ABG Hemoglobin ABG Oxyhemoglobin 90.2 L ABG Sodium ABG Potassium ABG Chloride ABG Glucose 336 H Oxyhemoglobin Carboxyhemoglobin Sodium Potassium Chloride Carbon Dioxide BUN Creatinine Glucose POC Glucose 313 H 379 H Lactic Acid Calcium Phosphorus Ferritin AST Alkaline Phosphatase Ammonia Lactate Dehydrogenase Total Creatine Kinase CK-MB (CK-2) Troponin T C-Reactive Protein Total Protein Albumin Triglycerides HDL Cholesterol TSH Free T4 Arterial Blood Glucose 336 H Arterial Blood Ionized Calcium 4.4 L Urine WBC (Auto) Salicylates Acetaminophen Coronavirus (PCR) 09/25/20 09/25/20 09/26/20 20:52 23:23 00:32 WBC RBC Hgb MCV MCH MCHC RDW Lymph % (Auto) Lymph # (Auto) Seg Neutrophils % Seg Neutrophils # PT INR APTT D-Dimer Heparin Anti-Xa Level 0.10 L ABG pH POC ABG pCO2 POC ABG pO2 ABG pO2 ABG HCO3 ABG O2 Saturation ABG Base Excess ABG Hemoglobin ABG Oxyhemoglobin ABG Sodium ABG Potassium ABG Chloride ABG Glucose Oxyhemoglobin Carboxyhemoglobin Sodium Potassium Chloride Carbon Dioxide BUN Creatinine Glucose POC Glucose 387 H 269 H Lactic Acid Calcium Phosphorus Ferritin AST Alkaline Phosphatase Ammonia Lactate Dehydrogenase Total Creatine Kinase CK-MB (CK-2) Troponin T C-Reactive Protein Total Protein Albumin Triglycerides HDL Cholesterol TSH Free T4 Arterial Blood Glucose Arterial Blood Ionized Calcium Urine WBC (Auto) Salicylates Acetaminophen Coronavirus (PCR) 09/26/20 09/26/20 09/26/20 02:23 02:23 03:53 WBC 11.4 H RBC Hgb MCV MCH MCHC RDW Lymph % (Auto) Lymph # (Auto) Seg Neutrophils % Seg Neutrophils # PT INR APTT D-Dimer Heparin Anti-Xa Level ABG pH POC ABG pCO2 58.5 H POC ABG pO2 69.5 L ABG pO2 ABG HCO3 ABG O2 Saturation ABG Base Excess ABG Hemoglobin ABG Oxyhemoglobin 93.5 L ABG Sodium ABG Potassium ABG Chloride ABG Glucose 272 H Oxyhemoglobin Carboxyhemoglobin Sodium Potassium Chloride Carbon Dioxide 33 H BUN 27 H Creatinine Glucose 316 H POC Glucose Lactic Acid Calcium 7.9 L Phosphorus 2.20 L Ferritin AST Alkaline Phosphatase Ammonia Lactate Dehydrogenase Total Creatine Kinase CK-MB (CK-2) Troponin T C-Reactive Protein Total Protein Albumin Triglycerides HDL Cholesterol TSH Free T4 Arterial Blood Glucose 272 H Arterial Blood Ionized Calcium 4.3 L Urine WBC (Auto) Salicylates Acetaminophen Coronavirus (PCR) 09/26/20 09/26/20 09/26/20 05:43 05:43 11:57 WBC RBC Hgb MCV MCH MCHC RDW Lymph % (Auto) Lymph # (Auto) Seg Neutrophils % Seg Neutrophils # PT INR APTT D-Dimer Heparin Anti-Xa Level 0.15 L ABG pH POC ABG pCO2 POC ABG pO2 ABG pO2 ABG HCO3 ABG O2 Saturation ABG Base Excess ABG Hemoglobin ABG Oxyhemoglobin ABG Sodium ABG Potassium ABG Chloride ABG Glucose Oxyhemoglobin Carboxyhemoglobin Sodium Potassium Chloride Carbon Dioxide BUN Creatinine Glucose POC Glucose 277 H 345 H Lactic Acid Calcium Phosphorus Ferritin AST Alkaline Phosphatase Ammonia Lactate Dehydrogenase Total Creatine Kinase CK-MB (CK-2) Troponin T C-Reactive Protein Total Protein Albumin Triglycerides HDL Cholesterol TSH Free T4 Arterial Blood Glucose Arterial Blood Ionized Calcium Urine WBC (Auto) Salicylates Acetaminophen Coronavirus (PCR) 09/26/20 09/26/20 09/26/20 13:17 17:53 23:45 WBC RBC Hgb MCV MCH MCHC RDW Lymph % (Auto) Lymph # (Auto) Seg Neutrophils % Seg Neutrophils # PT INR APTT D-Dimer Heparin Anti-Xa Level ABG pH POC ABG pCO2 POC ABG pO2 ABG pO2 ABG HCO3 ABG O2 Saturation ABG Base Excess ABG Hemoglobin ABG Oxyhemoglobin ABG Sodium ABG Potassium ABG Chloride ABG Glucose Oxyhemoglobin Carboxyhemoglobin Sodium Potassium Chloride Carbon Dioxide BUN Creatinine Glucose POC Glucose 292 H 331 H Lactic Acid 2.50 H* Calcium Phosphorus Ferritin AST Alkaline Phosphatase Ammonia Lactate Dehydrogenase Total Creatine Kinase CK-MB (CK-2) Troponin T C-Reactive Protein Total Protein Albumin Triglycerides HDL Cholesterol TSH Free T4 Arterial Blood Glucose Arterial Blood Ionized Calcium Urine WBC (Auto) Salicylates Acetaminophen Coronavirus (PCR) 09/27/20 09/27/20 09/27/20 03:03 04:47 04:47 WBC 11.8 H RBC Hgb MCV MCH 33 H MCHC RDW 15.3 H Lymph % (Auto) Lymph # (Auto) Seg Neutrophils % Seg Neutrophils # PT INR APTT D-Dimer Heparin Anti-Xa Level ABG pH POC ABG pCO2 61.3 H POC ABG pO2 80.6 L ABG pO2 ABG HCO3 ABG O2 Saturation ABG Base Excess ABG Hemoglobin ABG Oxyhemoglobin ABG Sodium ABG Potassium 4.6 H ABG Chloride ABG Glucose 358 H Oxyhemoglobin Carboxyhemoglobin Sodium Potassium Chloride Carbon Dioxide 34 H BUN 31 H Creatinine Glucose 330 H POC Glucose Lactic Acid Calcium 8.0 L Phosphorus Ferritin AST Alkaline Phosphatase Ammonia Lactate Dehydrogenase Total Creatine Kinase CK-MB (CK-2) Troponin T C-Reactive Protein Total Protein Albumin Triglycerides HDL Cholesterol TSH Free T4 Arterial Blood Glucose 358 H Arterial Blood Ionized Calcium 4.2 L Urine WBC (Auto) Salicylates Acetaminophen Coronavirus (PCR) 09/27/20 09/27/20 09/27/20 04:47 05:15 12:29 WBC RBC Hgb MCV MCH MCHC RDW Lymph % (Auto) Lymph # (Auto) Seg Neutrophils % Seg Neutrophils # PT INR APTT D-Dimer Heparin Anti-Xa Level < 0.10 L ABG pH POC ABG pCO2 POC ABG pO2 ABG pO2 ABG HCO3 ABG O2 Saturation ABG Base Excess ABG Hemoglobin ABG Oxyhemoglobin ABG Sodium ABG Potassium ABG Chloride ABG Glucose Oxyhemoglobin Carboxyhemoglobin Sodium Potassium Chloride Carbon Dioxide BUN Creatinine Glucose POC Glucose 303 H 310 H Lactic Acid Calcium Phosphorus Ferritin AST Alkaline Phosphatase Ammonia Lactate Dehydrogenase Total Creatine Kinase CK-MB (CK-2) Troponin T C-Reactive Protein Total Protein Albumin Triglycerides HDL Cholesterol TSH Free T4 Arterial Blood Glucose Arterial Blood Ionized Calcium Urine WBC (Auto) Salicylates Acetaminophen Coronavirus (PCR) 09/27/20 09/27/20 09/28/20 17:06 23:05 04:00 WBC RBC Hgb MCV MCH MCHC RDW Lymph % (Auto) Lymph # (Auto) Seg Neutrophils % Seg Neutrophils # PT INR APTT D-Dimer Heparin Anti-Xa Level ABG pH POC ABG pCO2 63.5 H POC ABG pO2 76.9 L ABG pO2 ABG HCO3 ABG O2 Saturation ABG Base Excess ABG Hemoglobin ABG Oxyhemoglobin ABG Sodium ABG Potassium ABG Chloride ABG Glucose 228 H Oxyhemoglobin Carboxyhemoglobin 0.4 L Sodium Potassium Chloride Carbon Dioxide BUN Creatinine Glucose POC Glucose 277 H 261 H Lactic Acid Calcium Phosphorus Ferritin AST Alkaline Phosphatase Ammonia Lactate Dehydrogenase Total Creatine Kinase CK-MB (CK-2) Troponin T C-Reactive Protein Total Protein Albumin Triglycerides HDL Cholesterol TSH Free T4 Arterial Blood Glucose 228 H Arterial Blood Ionized Calcium Urine WBC (Auto) Salicylates Acetaminophen Coronavirus (PCR) 09/28/20 09/28/20 09/28/20 05:33 05:44 05:44 WBC 11.3 H RBC Hgb MCV MCH MCHC RDW 15.6 H Lymph % (Auto) Lymph # (Auto) Seg Neutrophils % Seg Neutrophils # PT INR APTT D-Dimer Heparin Anti-Xa Level ABG pH POC ABG pCO2 POC ABG pO2 ABG pO2 ABG HCO3 ABG O2 Saturation ABG Base Excess ABG Hemoglobin ABG Oxyhemoglobin ABG Sodium ABG Potassium ABG Chloride ABG Glucose Oxyhemoglobin Carboxyhemoglobin Sodium 148 H Potassium Chloride Carbon Dioxide 38 H BUN 30 H Creatinine 0.5 L Glucose 192 H POC Glucose 206 H Lactic Acid Calcium Phosphorus Ferritin AST Alkaline Phosphatase Ammonia Lactate Dehydrogenase Total Creatine Kinase CK-MB (CK-2) Troponin T C-Reactive Protein Total Protein Albumin Triglycerides HDL Cholesterol TSH Free T4 Arterial Blood Glucose Arterial Blood Ionized Calcium Urine WBC (Auto) Salicylates Acetaminophen Coronavirus (PCR) 09/28/20 09/28/20 09/28/20 11:30 14:10 14:10 WBC RBC Hgb MCV MCH MCHC RDW Lymph % (Auto) Lymph # (Auto) Seg Neutrophils % Seg Neutrophils # PT INR APTT D-Dimer 4603.21 H Heparin Anti-Xa Level ABG pH POC ABG pCO2 POC ABG pO2 ABG pO2 ABG HCO3 ABG O2 Saturation ABG Base Excess ABG Hemoglobin ABG Oxyhemoglobin ABG Sodium ABG Potassium ABG Chloride ABG Glucose Oxyhemoglobin Carboxyhemoglobin Sodium Potassium Chloride Carbon Dioxide BUN Creatinine Glucose POC Glucose 235 H Lactic Acid Calcium Phosphorus Ferritin 530.1 H AST Alkaline Phosphatase Ammonia Lactate Dehydrogenase Total Creatine Kinase CK-MB (CK-2) Troponin T C-Reactive Protein Total Protein Albumin Triglycerides HDL Cholesterol TSH Free T4 Arterial Blood Glucose Arterial Blood Ionized Calcium Urine WBC (Auto) Salicylates Acetaminophen Coronavirus (PCR) 09/28/20 09/28/20 09/28/20 14:10 16:55 23:08 WBC RBC Hgb MCV MCH MCHC RDW Lymph % (Auto) Lymph # (Auto) Seg Neutrophils % Seg Neutrophils # PT INR APTT D-Dimer Heparin Anti-Xa Level ABG pH POC ABG pCO2 POC ABG pO2 ABG pO2 ABG HCO3 ABG O2 Saturation ABG Base Excess ABG Hemoglobin ABG Oxyhemoglobin ABG Sodium ABG Potassium ABG Chloride ABG Glucose Oxyhemoglobin Carboxyhemoglobin Sodium Potassium Chloride Carbon Dioxide BUN Creatinine Glucose POC Glucose 261 H 219 H Lactic Acid Calcium Phosphorus Ferritin AST Alkaline Phosphatase Ammonia Lactate Dehydrogenase 648 H Total Creatine Kinase CK-MB (CK-2) Troponin T C-Reactive Protein Total Protein Albumin Triglycerides HDL Cholesterol TSH Free T4 Arterial Blood Glucose Arterial Blood Ionized Calcium Urine WBC (Auto) Salicylates Acetaminophen Coronavirus (PCR) 09/29/20 09/29/20 09/29/20 02:50 05:39 07:52 WBC 15.1 H RBC Hgb MCV 99 H MCH MCHC RDW 15.7 H Lymph % (Auto) Lymph # (Auto) Seg Neutrophils % Seg Neutrophils # PT INR APTT D-Dimer Heparin Anti-Xa Level ABG pH 7.335 L POC ABG pCO2 POC ABG pO2 ABG pO2 63.6 L ABG HCO3 38.9 H ABG O2 Saturation 91.9 L ABG Base Excess 10.4 H ABG Hemoglobin 11.9 L ABG Oxyhemoglobin ABG Sodium ABG Potassium ABG Chloride ABG Glucose Oxyhemoglobin 90.1 L Carboxyhemoglobin Sodium Potassium Chloride Carbon Dioxide BUN Creatinine Glucose POC Glucose 248 H Lactic Acid Calcium Phosphorus Ferritin AST Alkaline Phosphatase Ammonia Lactate Dehydrogenase Total Creatine Kinase CK-MB (CK-2) Troponin T C-Reactive Protein Total Protein Albumin Triglycerides HDL Cholesterol TSH Free T4 Arterial Blood Glucose Arterial Blood Ionized Calcium Urine WBC (Auto) Salicylates Acetaminophen Coronavirus (PCR) 09/29/20 09/29/20 09/29/20 07:52 11:46 13:56 WBC RBC Hgb MCV MCH MCHC RDW Lymph % (Auto) Lymph # (Auto) Seg Neutrophils % Seg Neutrophils # PT INR APTT D-Dimer Heparin Anti-Xa Level ABG pH POC ABG pCO2 POC ABG pO2 ABG pO2 ABG HCO3 ABG O2 Saturation ABG Base Excess ABG Hemoglobin ABG Oxyhemoglobin ABG Sodium ABG Potassium ABG Chloride ABG Glucose Oxyhemoglobin Carboxyhemoglobin Sodium Potassium 5.6 H D 5.7 H Chloride Carbon Dioxide 33 H 38 H BUN 40 H 48 H Creatinine Glucose 238 H 282 H POC Glucose 238 H Lactic Acid Calcium 8.2 L 8.3 L Phosphorus Ferritin AST Alkaline Phosphatase Ammonia Lactate Dehydrogenase Total Creatine Kinase CK-MB (CK-2) Troponin T C-Reactive Protein Total Protein Albumin Triglycerides HDL Cholesterol TSH Free T4 Arterial Blood Glucose Arterial Blood Ionized Calcium Urine WBC (Auto) Salicylates Acetaminophen Coronavirus (PCR) 09/29/20 09/29/20 09/29/20 17:13 21:00 23:54 WBC RBC Hgb MCV MCH MCHC RDW Lymph % (Auto) Lymph # (Auto) Seg Neutrophils % Seg Neutrophils # PT INR APTT D-Dimer Heparin Anti-Xa Level ABG pH POC ABG pCO2 POC ABG pO2 ABG pO2 ABG HCO3 ABG O2 Saturation ABG Base Excess ABG Hemoglobin ABG Oxyhemoglobin ABG Sodium ABG Potassium ABG Chloride ABG Glucose Oxyhemoglobin Carboxyhemoglobin Sodium Potassium Chloride Carbon Dioxide BUN Creatinine Glucose POC Glucose 282 H 302 H Lactic Acid Calcium Phosphorus Ferritin AST Alkaline Phosphatase Ammonia Lactate Dehydrogenase Total Creatine Kinase CK-MB (CK-2) Troponin T C-Reactive Protein Total Protein Albumin Triglycerides HDL Cholesterol TSH Free T4 Arterial Blood Glucose Arterial Blood Ionized Calcium Urine WBC (Auto) 28.0 H Salicylates Acetaminophen Coronavirus (PCR) 09/30/20 09/30/20 09/30/20 05:06 07:19 07:19 WBC RBC Hgb MCV MCH MCHC RDW Lymph % (Auto) Lymph # (Auto) Seg Neutrophils % Seg Neutrophils # PT INR APTT D-Dimer 1776.66 H Heparin Anti-Xa Level 1.69 H ABG pH POC ABG pCO2 POC ABG pO2 ABG pO2 ABG HCO3 ABG O2 Saturation ABG Base Excess ABG Hemoglobin ABG Oxyhemoglobin ABG Sodium ABG Potassium ABG Chloride ABG Glucose Oxyhemoglobin Carboxyhemoglobin Sodium Potassium Chloride Carbon Dioxide BUN Creatinine Glucose POC Glucose 271 H Lactic Acid Calcium Phosphorus Ferritin 770.1 H AST Alkaline Phosphatase Ammonia Lactate Dehydrogenase Total Creatine Kinase CK-MB (CK-2) Troponin T C-Reactive Protein Total Protein Albumin Triglycerides HDL Cholesterol TSH Free T4 Arterial Blood Glucose Arterial Blood Ionized Calcium Urine WBC (Auto) Salicylates Acetaminophen Coronavirus (PCR) 09/30/20 09/30/20 09/30/20 07:19 07:19 07:19 WBC 13.4 H RBC 3.55 L Hgb MCV 100 H MCH MCHC RDW 16.3 H Lymph % (Auto) Lymph # (Auto) Seg Neutrophils % Seg Neutrophils # PT INR APTT D-Dimer Heparin Anti-Xa Level ABG pH POC ABG pCO2 POC ABG pO2 ABG pO2 ABG HCO3 ABG O2 Saturation ABG Base Excess ABG Hemoglobin ABG Oxyhemoglobin ABG Sodium ABG Potassium ABG Chloride ABG Glucose Oxyhemoglobin Carboxyhemoglobin Sodium 149 H Potassium Chloride 107.9 H Carbon Dioxide 38 H BUN 47 H Creatinine Glucose 253 H POC Glucose Lactic Acid Calcium 7.9 L Phosphorus Ferritin AST 44 H Alkaline Phosphatase 135 H Ammonia Lactate Dehydrogenase 560 H Total Creatine Kinase CK-MB (CK-2) Troponin T C-Reactive Protein Total Protein 5.1 L Albumin 2.5 L Triglycerides HDL Cholesterol TSH Free T4 Arterial Blood Glucose Arterial Blood Ionized Calcium Urine WBC (Auto) Salicylates Acetaminophen Coronavirus (PCR) 09/30/20 09/30/20 07:59 12:02 WBC RBC Hgb MCV MCH MCHC RDW Lymph % (Auto) Lymph # (Auto) Seg Neutrophils % Seg Neutrophils # PT INR APTT D-Dimer Heparin Anti-Xa Level ABG pH 7.280 L POC ABG pCO2 74.7 H POC ABG pO2 55.3 L ABG pO2 ABG HCO3 ABG O2 Saturation ABG Base Excess ABG Hemoglobin 11.8 L ABG Oxyhemoglobin 86.3 L ABG Sodium ABG Potassium ABG Chloride ABG Glucose 236 H Oxyhemoglobin Carboxyhemoglobin 0.2 L Sodium Potassium Chloride Carbon Dioxide BUN Creatinine Glucose POC Glucose 267 H Lactic Acid Calcium Phosphorus Ferritin AST Alkaline Phosphatase Ammonia Lactate Dehydrogenase Total Creatine Kinase CK-MB (CK-2) Troponin T C-Reactive Protein Total Protein Albumin Triglycerides HDL Cholesterol TSH Free T4 Arterial Blood Glucose 236 H Arterial Blood Ionized Calcium Urine WBC (Auto) Salicylates Acetaminophen Coronavirus (PCR) Chest x-ray: pending Allied health notes reviewed: nursing
[2020-09-30] MEDS: FREE WATER PO SCH ×3 (14:30→21:07)
--- NOTE | 2020-09-30 15:33 | Progress Note ---
<AGUSTINA RUSH - Last Filed: 09/30/20 15:37> Assessment and Plan Assessment and plan: Assessment and Plan Assessment and plan: This is a 54-year-old female with bipolar disorder, hypothyroidism, hypertension, diabetes mellitus admitted for acute hypoxic respiratory failure, COVID-19 pneumonia, NSTEMI Neuro: Acute metabolic encephalopathy, h/o bipolar -Psych consult, appreciate recommendations -Zoloft -intact cough/gag, PERRL -Avoid delirium -Sedated with fentanyl, goal RASS 0 to -1 -family updated on plan of care Cardiology: SR, NSTEMI, h/o HTN -Cardiology consulted, appreciate recommendations -Echocardiogram shows diastolic function normal, LVEF 50 to 55%, mild to moderate concentric LVH, mild AR, mild MR, trace TR, RVSP normal at 17 mmHg -Aspirin 162, Plavix 75, beta-genny, as needed nitroglycerin ntg- with hold parameters hold parameters on metop -Blood pressure monitoring per protocol --MAP 70's -will need CT angio when stable Respiratory: Acute hypoxic respiratory failure; current every day smoker -On mechanical ventilation, wean as tolerated ACPRV [id number] inc peep to 20 this afternoon and assess tolerance see RT notes -CCM consulted, appreciate recommendations -VAP bundle -SPO2 monitoring -Serial CXR and ABGs -continue nebs -current smoker GI: NAD -Nutrition consulted, appreciate recommendations -Tube feedings to goal -PPI -BM: [place] -BMS d/c today : Urinary retention; hyperNa -purwick -Patient is on doxazosin, flomax -prn bladder scan -net pos 2.2L over 24 hours- -inc FWF for NA -vit D3 supplementation -continue to trend cr -AM labs ordered Endo: Hypothyroidism, h/o DM; hyperglycemia -SSI -Scheduled lispro -Accu-Cheks every 6h -Synthroid -Avoid hypoglycemia Heme: coagulopathic covid/on IV hep -Trend CBC -Transfuse for hemoglobin less than 7 -Systemic anticoagulation with heparin drip -no bleeding on exam -US neg for DVT ID: COVID-19 pneumonia, UTI, sepsis, lactic acidosis -COVID-19 PCR + 09/16/2020 -Infectious disease consulted, appreciate recommendations -S/p remdesivir 5 days -Dexamethasone -09/24 Actemra -ABX completed -Contact/droplet precautions -Trend COVID-19 inflammatory markers -febrile today PRN tylenol -follow culture data -ID following -continue cefipime/vanc The high probability of a clinically significant, sudden or life threatening deterioration of the [cardiorespiratory] system(s) required my full and direct attention, intervention and personal management. The aggregate critical care time was [60] minutes. This time is in addition to time spent performing reported procedures but includes the following: [x] Data Review and interpretation [x] Patient assessment and monitoring of vital signs [x] Documentation [x] Medication orders and management Disposition Plan: icu Total Time Spent with Patient (Minutes): 60 History Interval history: This is a 54-year-old female with bipolar disorder, hypothyroidism, hypertension, diabetes mellitus who presents to the emergency department via EMS after having being found on the floor with a generalized weakness vs syncope as the patient is in the case that she took some trazodone in order to get to sleep but cannot recall how many tablets she took her dosage. The final regimen patient was confused but arousable and responds to questions during her course of stay. In the emergency department she was found to be hypoxic upon arrival with O2 sat of 82% on room air and was placed on supplemental oxygen. Work-up in the emergency department included a CXR which revealed patchy parenchymal opacities, hyponatremia of 128, hypokalemia 3.2, elevated blood glucose of 388, lactic acidosis 2.7, elevated TSH at 34.67 and free T4 at 0.1. UA revealed UTI and tox screen revealed Tylenol level of 9.1. Patient was admitted to the hospital service with acute hypoxic respiratory failure secondary to pneumonia, hypokalemia, drug overdose and hyperglycemia. She was admitted as a COVID-19 PUI and infectious disease was also consulted. Psych was consulted for history of bipolar and possible drug overdose. Upon arrival to the ICU for progressive shortness of breath and progressively worsening CXR patient was noted to have an NSTEMI and cardiology was consulted. 09/16/2020: COVID-pneumonia. Coronavirus PCR positive, Patient on 5 L nasal cannula oxygen 09/17/2020: Covid pneumonia, Covid PCR positive yesterday. Patient on 5 L nasal cannula oxygen. ID consult appreciated, On remdesivir 09/18/2020: Still on 5 L nasal cannula oxygen, Saturations dropped to 88% on 3 L nasal cannula oxygen, Trying to wean but not possible, Continue remdesivir 09/20/2020: Patient is severely hypoxemic, requiring very high flow oxygen And intermittent BiPAP, x-ray chest worsening infiltrates. Patient is severely hypoxemic even on BiPAP, lot attendant recommend. Transfer to ICU for close observation and possible intubation if no improvement . I called MATTYK patient's mother and discussed in detail patient's deterioration, severe hypoxemia, Transfer to ICU, possible intubation if needed she informed me that. Her husb and recently, With Covid infection, and she herself is Covid positive. 09/21/2020; patient was intubated yesterday, On ventilatory support, Non-ST elevation OR, check echocardiogram, Cardiology evaluation noted and appreciated. Discussed with 09/22: Patient's PEEP was increased to 14. [facility], will order to remove her Laura catheter today and IV heparin was changed to IV Lovenox 09/23: Continue current medical management for NSTEMI, advance O ETT by 1 cm, increase PEEP and reduced FiO2 per [facility]. Patient had retention today and Laura will be replaced with 30 straight cath and patient will be started on Flomax. 09/24: Patient received Actemra today, [facility] added doxazosin, we increase Lantus and SSI today for tighter glycemic control. 09/25: No acute events reported overnight. Increase in lantus. Vent changes made in accordance to ABG. 09/26: No acute overnight events reported. increased lantus again 09/27: family updated by [facility], BLE dopplars pending, increased lantus. 09/28: [facility] reduced FiO2 to 85%, avoiding bilateral lower extremity Doppler ultrasounds. Patient remains sedated on fentanyl. 09/29 no acute events overnight 09-30 no acute events overnight Disposition Plan: icu Total Time Spent with Patient (Minutes): 60 History Interval history: no acute events Hospitalist Physical - Constitutional Vitals: Temp Pulse Resp BP Pulse Ox 98.3 F 102 H 18 101/67 92 09/30/20 12:00 09/30/20 14:15 09/30/20 14:15 09/30/20 14:15 09/30/20 14:14 General appearance: Present: no acute distress, well-nourished, other (Intubated on vent, sedated) - EENT Eyes: Present: PERRL ENT: clear oral mucosa - Neck Neck: Present: supple - Respiratory Respiratory effort: normal, labored - Cardiovascular Rhythm: regular Heart Sounds: Present: S1 & S2 Peripheral Pulses: within normal limits - Abdominal General gastrointestinal: soft - Integumentary Integumentary: Present: clear, warm - Psychiatric Psychiatric: other - Neurologic Neurologic: other - Allied Health Allied health notes reviewed: nursing, RT, social work, case management HEART Score - HEART Score Troponin: Troponin T 0.501 ng/mL (0.00-0.029) H* D 09/22/20 10:22 Results - Labs CBC & Chem 7: 09/30/20 07:19 09/30/20 07:19 Labs: Laboratory Last Values WBC 13.4 K/mm3 (4.5-11.0) H 09/30/20 07:19 RBC 3.55 M/mm3 (3.65-5.03) L 09/30/20 07:19 Hgb 11.4 gm/dl (10.1-14.3) 09/30/20 07:19 Hct 35.4 % (30.3-42.9) 09/30/20 07:19 MCV 100 fl (79-97) H 09/30/20 07:19 MCH 32 pg (28-32) 09/30/20 07:19 MCHC 32 % (30-34) 09/30/20 07:19 RDW 16.3 % (13.2-15.2) H 09/30/20 07:19 Plt Count 147 K/mm3 (140-440) 09/30/20 07:19 Lymph % (Auto) 7.3 % (13.4-35.0) L 09/16/20 04:47 Pender % (Auto) 6.6 % (0.0-7.3) 09/16/20 04:47 Eos % (Auto) 0.0 % (0.0-4.3) 09/16/20 04:47 Baso % (Auto) 0.4 % (0.0-1.8) 09/16/20 04:47 Lymph # (Auto) 0.8 K/mm3 (1.2-5.4) L 09/16/20 04:47 Pender # (Auto) 0.7 K/mm3 (0.0-0.8) 09/16/20 04:47 Eos # (Auto) 0.0 K/mm3 (0.0-0.4) 09/16/20 04:47 Baso # (Auto) 0.0 K/mm3 (0.0-0.1) 09/16/20 04:47 Seg Neutrophils % 85.7 % (40.0-70.0) H 09/16/20 04:47 Seg Neutrophils # 8.9 K/mm3 (1.8-7.7) H 09/16/20 04:47 PT 13.3 Sec. (12.2-14.9) 09/29/20 13:56 INR 0.95 (0.87-1.13) 09/29/20 13:56 APTT 38.2 Sec. (24.2-36.6) H 09/21/20 02:14 D-Dimer 1776.66 ng/mlDDU (0-234) H 09/30/20 07:19 Heparin Anti-Xa Level 1.69 U.I./ml (0.3-0.7) H 09/30/20 07:19 ABG pH 7.280 (7.320-7.450) L 09/30/20 07:59 POC ABG pCO2 74.7 mmHg (32.0-48.0) H 09/30/20 07:59 ABG pCO2 74.6 mm Hg 09/29/20 02:50 POC ABG pO2 55.3 mmHg (83-108) L 09/30/20 07:59 ABG pO2 63.6 mm Hg (80.0-90.0) L 09/29/20 02:50 POC ABG HCO3 34.3 09/30/20 07:59 ABG HCO3 38.9 mmol/L (20.0-26.0) H 09/29/20 02:50 ABG O2 Saturation 86.7 (0-100) 09/30/20 07:59 ABG O2 Content 15.1 (0.0-44) 09/29/20 02:50 POC ABG Base Excess 5.5 09/30/20 07:59 ABG Base Excess 10.4 mmol/L (-2.0-3.0) H 09/29/20 02:50 ABG Hemoglobin 11.8 (12.0-17.5) L 09/30/20 07:59 ABG Oxyhemoglobin 86.3 (94-98) L 09/30/20 07:59 ABG Carboxyhemoglobin 1.4 % (0.0-5.0) 09/29/20 02:50 ABG Methemoglobin 0.3 (0.0-1.5) 09/30/20 07:59 ABG Sodium 144.6 mmol/L (136.0-145.0) 09/30/20 07:59 ABG Potassium 3.8 mmol/L (3.40-4.50) 09/30/20 07:59 ABG Chloride 104.0 mmol/L (98-107) 09/30/20 07:59 ABG Glucose 236 mg/dL (65-95) H 09/30/20 07:59 VBG pH 7.368 (7.320-7.420) 09/15/20 18:46 Oxyhemoglobin 90.1 % (95.0-99.0) L 09/29/20 02:50 Carboxyhemoglobin 0.2 (0.5-1.5) L 09/30/20 07:59 FiO2 100 % 09/29/20 02:50 FiO2 % 100.0 09/30/20 07:59 Sodium 149 mmol/L (137-145) H 09/30/20 07:19 Potassium 4.1 mmol/L (3.6-5.0) D 09/30/20 07:19 Chloride 107.9 mmol/L (98-107) H 09/30/20 07:19 Carbon Dioxide 38 mmol/L (22-30) H 09/30/20 07:19 Anion Gap 7 mmol/L 09/30/20 07:19 BUN 47 mg/dL (7-17) H 09/30/20 07:19 Creatinine 0.7 mg/dL (0.6-1.2) 09/30/20 07:19 Estimated GFR > 60 ml/min 09/30/20 07:19 BUN/Creatinine Ratio 67 % 09/30/20 07:19 Glucose 253 mg/dL (65-100) H 09/30/20 07:19 POC Glucose 267 mg/dL (70-105) H 09/30/20 12:02 Lactic Acid 2.50 mmol/L (0.7-2.0) H* 09/26/20 13:17 Calcium 7.9 mg/dL (8.4-10.2) L 09/30/20 07:19 Phosphorus 3.10 mg/dL (2.5-4.5) D 09/30/20 07:19 Magnesium 2.30 mg/dL (1.7-2.3) 09/30/20 07:19 Ferritin 770.1 ng/mL (10.0-200.0) H 09/30/20 07:19 Total Bilirubin 0.40 mg/dL (0.1-1.2) 09/30/20 07:19 AST 44 units/L (5-40) H 09/30/20 07:19 ALT 41 units/L (7-56) 09/30/20 07:19 Alkaline Phosphatase 135 units/L (35-129) H 09/30/20 07:19 Ammonia 23.0 umol/L (25-60) L 09/15/20 18:46 Lactate Dehydrogenase 560 units/L (91-180) H 09/30/20 07:19 Total Creatine Kinase 1159 units/L (30-135) H 09/22/20 10:22 CK-MB (CK-2) 14.4 ng/mL (0.0-4.0) H 09/22/20 10:22 CK-MB (CK-2) Rel Index 1.2 (0-4) 09/22/20 10:22 Troponin T 0.501 ng/mL (0.00-0.029) H* D 09/22/20 10:22 C-Reactive Protein 0.40 mg/dL (0.00-1.30) 09/30/20 07:19 Total Protein 5.1 g/dL (6.3-8.2) L 09/30/20 07:19 Albumin 2.5 g/dL (3.9-5) L 09/30/20 07:19 Albumin/Globulin Ratio 1.0 % 09/30/20 07:19 Triglycerides 156 mg/dL (2-149) H 09/21/20 00:46 Cholesterol 139 mg/dL (50-199) 09/21/20 00:46 LDL Cholesterol Direct 85 mg/dL (50-130) 09/21/20 00:46 HDL Cholesterol 22 mg/dL (40-59) L 09/21/20 00:46 Cholesterol/HDL Ratio 6.31 % 09/21/20 00:46 Procalcitonin 0.22 ng/mL (<0.15) 09/30/20 07:19 TSH 34.670 mlU/mL (0.270-4.200) H 09/15/20 18:46 Free T4 0.10 ng/dL (0.76-1.46) L 09/15/20 19:43 Arterial Blood Glucose 236 mg/dL (65-95) H 09/30/20 07:59 Arterial Blood Ionized Calcium 4.6 mg/dL (4.6-5.3) 09/30/20 07:59 Urine Color Yellow (Yellow) 09/29/20 21:00 Urine Turbidity Slightly-cloudy (Clear) 09/29/20 21:00 Urine pH 5.0 (5.0-7.0) 09/29/20 21:00 Ur Specific [place] 1.025 (1.003-1.030) 09/29/20 21:00 Urine Protein 30 mg/dl mg/dL (Negative) 09/29/20 21:00 Urine Glucose (UA) 150 mg/dL (Negative) 09/29/20 21:00 Urine Ketones Neg mg/dL (Negative) 09/29/20 21:00 Urine Blood Sm (Negative) 09/29/20 21:00 Urine Nitrite Neg (Negative) 09/29/20 21:00 Urine Bilirubin Neg (Negative) 09/29/20 21:00 Urine Urobilinogen 2.0 mg/dL (<2.0) 09/29/20 21:00 Ur Leukocyte Esterase Lg (Negative) 09/29/20 21:00 Urine WBC (Auto) 28.0 /HPF (0.0-6.0) H 09/29/20 21:00 Urine RBC (Auto) 20.0 /HPF (0.0-6.0) 09/29/20 21:00 U Epithel Cells (Auto) 1.0 /HPF (0-13.0) 09/29/20 21:00 Urine Bacteria (Auto) 2+ /HPF (Negative) 09/29/20 21:00 Urine WBC Clumps 2+ /HPF 09/15/20 Unknown Urine Mucus Few /HPF 08/16/21 21:00 Urine Yeast (Budding) 3+ /HPF 09/29/20 21:00 Salicylates < 0.3 mg/dL (2.8-20.0) L 09/15/20 18:46 Urine Opiates Screen Presumptive negative 09/15/20 Unknown Urine Methadone Screen Presumptive negative 09/15/20 Unknown Acetaminophen 5.0 ug/mL (10.0-30.0) L 09/16/20 21:38 Ur Barbiturates Screen Presumptive negative 09/15/20 Unknown Ur Phencyclidine Scrn Presumptive negative 09/15/20 Unknown Ur Amphetamines Screen Presumptive negative 09/15/20 Unknown U Benzodiazepines Scrn Presumptive negative 09/15/20 Unknown Urine Cocaine Screen Presumptive negative 09/15/20 Unknown U Marijuana (THC) Screen Presumptive negative 09/15/20 Unknown Drugs of Abuse Note Disclamer 09/15/20 Unknown Plasma/Serum Alcohol < 0.01 % (0-0.07) 09/15/20 18:46 Coronavirus (PCR) Positive (Negative) A 09/16/20 08:00 Microbiology: Microbiology 09/29/20 13:56 Peripheral/Venous Blood Culture - Preliminary NO GROWTH AFTER 24 HOURS 09/29/20 13:56 Peripheral/Venous Blood Culture - Preliminary NO GROWTH AFTER 24 HOURS Laura/IV: Voiding Method External Female Catheter Active Medications - Current Medications Current Medications: Generic Name Dose Route Start Last Admin Trade Name Freq PRN Reason Stop Dose Admin Acetaminophen 650 mg 09/29/20 16:39 09/30/20 10:35 Acetaminophen 325 Mg/10.15 Ml Oral Liqd Unit Dose PO 650 mg Q6H PRN Administration Pain, Mild (1-3) Albuterol 2.5 mg 09/20/20 12:28 Albuterol 2.5 Mg/3 Ml Nebu IH Q4HRT PRN Shortness Of Breath Lipase/Protease/Amylase 1 each 09/22/20 08:06 Lipase 10,500/Protease 25,000/Amylase 43,750 (Units) Dr Hector PATTERSON PRN PRN For Clogged Feeding Tube Ascorbic Acid 500 mg 09/22/20 22:00 09/30/20 10:34 Ascorbic Acid 500 Mg Tab PO 500 mg BID AMANDA Administration Aspirin 162 mg 09/21/20 15:00 09/30/20 10:34 Aspirin 81 Mg Tab Chew PO 162 mg QDAY AMANDA Administration Cholecalciferol 5,000 unit 09/23/20 10:00 09/30/20 10:34 Cholecalciferol (Vit D3) 5,000 Unit Tab PO 5,000 unit DAILY AMANDA Administration Clopidogrel Bisulfate 75 mg 09/22/20 10:00 09/30/20 10:34 Clopidogrel 75 Mg Tab PO 75 mg QDAY AMANDA Administration Dextrose 50 ml 09/16/20 21:24 Dextrose 50% In Water (25gm) 50 Ml Syringe IV Q30MIN PRN Hypoglycemia Protocol Famotidine 20 mg 09/22/20 10:00 09/30/20 10:34 Famotidine 20 Mg Tab PO 20 mg BID AMANDA Administration Fentanyl 50 mcg 09/20/20 19:02 Fentanyl 100 Mcg/2 Ml Inj IV Q10MIN PRN ANALGESIA Heparin Sodium (Porcine) 3,100 unit 09/29/20 13:12 09/29/20 13:53 Heparin 10,000 Units/10 Ml Vial 40 unit/kg (3100 unit) 3,100 unit IV Administration Q6H PRN Anti-Xa Assay < 0.1 units/ml Hydrophilic Ointment 1 applic 09/20/20 19:02 Lip Therapy Vaseline TP Q2HR PRN Dry Lips Fentanyl Citrate 2,000 mcg in 100 mls @ 3.925 mls/hr 09/20/20 20:00 09/30/20 02:08 Fentanyl Drip Premix IV 1 mcg/kg/hr TITR AMANDA 3.925 mls/hr Titration Protocol 1 MCG/KG/HR Cefepime HCl 2 gm in 100 mls @ 200 mls/hr 09/29/20 14:00 09/30/20 10:36 Cefepime/Ns 2 Gm/100 Ml IV 200 mls/hr Q12HR AMANDA Administration Protocol Heparin Sodium/Sodium Chloride 25,000 unit in 500 mls @ 23 mls/hr 09/29/20 14:00 09/30/20 12:24 Heparin/ 0.45% Nacl-25,000 Unit/500 Ml IV 1,000 units/hr TITR AMANDA 20 mls/hr Administration Protocol 1,150 UNITS/HR Vancomycin HCl 1,250 mg/ 275 mls @ 166.667 mls/hr 09/30/20 10:00 09/30/20 10:40 Sodium Chloride IV 166.667 mls/hr Q12H AMANDA Administration Insulin Glargine 35 units 10/01/20 08:00 Insulin Glargine 100 Units/Ml SUB-Q QAMDIAB [facility] Insulin Glargine 30 units 09/30/20 22:00 Insulin Glargine 100 Units/Ml SUB-Q QHS [facility] Insulin Human Lispro 6 unit 09/28/20 12:00 09/30/20 12:24 Insulin Lispro 100 Unit/Ml SUB-Q 6 unit Q6HR [facility] Administration Insulin Human Regular 0 units 09/23/20 12:00 09/30/20 12:23 Insulin Regular, Human 100 Units/1 Ml SUB-Q 6 units Q6H [facility] Administration Protocol Levothyroxine Sodium 125 mcg 09/18/20 06:00 09/30/20 06:49 Levothyroxine 125 Mcg Tab PO 125 mcg DAILY@0600 [facility] Administration Metoprolol Tartrate 2.5 mg 09/21/20 15:00 09/30/20 06:05 Metoprolol Tartrate 5 Mg/5 Ml Inj IV Not Given Q8HR [facility] Multi-Ingred Cream/Lotion/Oil/Oint 1 applic 09/20/20 19:02 Mineral Oil/Petrolatum, White Ophth Oint 3.5 Gm OU Q4HR PRN Dry Eye(s) Naloxone HCl 0.1 mg 09/15/20 18:36 Naloxone 0.4 Mg/1 Ml Inj IV Q2MIN PRN Res Rate </= 8 or 02 SAT < 92% Nitroglycerin 0.5 inch 09/22/20 06:00 09/30/20 06:06 Nitroglycerin 2% Oint 1 Gm TP Not Given BIDNTG [facility] Protocol Senna 8.8 mg 09/24/20 22:00 09/29/20 21:45 Sennosides Oral Liqd 8.8 Mg/5 Ml Oral Liqd PO 8.8 mg QHS [facility] Administration Sertraline HCl 25 mg 09/17/20 12:00 09/30/20 10:34 Sertraline 25 Mg Tab PO 25 mg QDAY [facility] Administration Simple Syrup 15 ml 09/22/20 08:06 Simple Syrup 15 Ml FEEDTUBE PRN PRN Hypoglycemia Simple Syrup 30 ml 09/22/20 08:06 Simple Syrup 15 Ml FEEDTUBE PRN PRN Hypoglycemia Sodium Bicarbonate 325 mg 09/22/20 08:06 Sodium Bicarbonate 325 Mg Tab FEEDTUBE PRN PRN For Clogged Feeding Tube Sodium Chloride 10 ml 09/16/20 10:00 09/30/20 10:35 Sodium Chloride 0.9% 10 Ml Flush Syringe IV 10 ml BID AMANDA Administration Sodium Chloride 10 ml 09/15/20 22:09 Sodium Chloride 0.9% 10 Ml Flush Syringe IV PRN PRN LINE FLUSH Sodium Chloride 5 ml 09/25/20 02:30 Sodium Chloride 0.9% 500 Ml Ivpb IV DIRECT PRN [employer]ICIAN Zinc Sulfate 220 mg 09/22/20 22:00 09/30/20 10:34 Zinc Sulfate 220 Mg Cap PO 220 mg BID AMANDA Administration Nutrition/Malnutrition Assess - Dietary Evaluation Nutrition/Malnutrition Findings: Nutrition Notes Start: 09/16/20 15:1 3 Freq: Status: Active Protocol: Document 09/26/20 11:52 (Rec: 09/26/20 11:54 [id number]) Nutrition Notes Initial or Follow up Reassessment Current Diagnosis Diabetes,Hypertension, Respiratory Failure Other Pertinent Diagnosis pneu, drug OD, COVID-19 Current Diet Vital AF 1.2 at 60 ml/hr Labs/Tests POC BG [phone] Phos 2.2 Pertinent Medications Sodium Phos Insulin Height 5 ft 6 in Weight 78.5 kg [place] Body Weight (kg) 59.09 BMI 27.9 Weight Status Appropriate Subjective/Other Information Insulin has been increased again this AM. Pt tolerating TF. Percent of energy/protein needs met: 100%/100% Burn Absent Trauma Absent Current % PO Negligible Minimum of two criteria No physical signs of malnutrition #1 Nutrition Diagnosis Inadequate oral intake Diagnosis Progress(for reassessment Continues documentation) Is patient on ventilator? Yes Is Patient Ambulatory and/or Out of Bed No [facility] [phone] Calculation Used for Recommendations [facility] Additional Notes Protein: (1.2-2g/kg) 94-157g Fluid: 1 ml/kcal Nutrition Intervention Change Diet Order: Continue TF Nutrition Support: Vital AF 1.2 at 60 ml/hr Flush 75 ml q4h or per MD Kcal 1,728 Protein (gm) 108 Fluid (mL) 1,168 Goal #1 Meet at least 75% of energy and protein needs via TF Anticipated Discharge Needs: Unable to determine at this time Follow-Up By: 09/30/20 Additional Comments F/u: BG and stable TF - Attestation Statement I have reviewed and agreed w/ Malnutrition eval & tx plan: Yes <JESSICA CAVAZOSBLANQUITA R - Last Filed: 10/01/20 08:31> Assessment and Plan Assessment and plan: I saw and evaluated the patient. I agree with the findings and the plan of care as documented in the Nurse Practitioner's~note, with the following corrections and additions. Patient is a 54 y/o WF with bipolar disorder, hypothyroidism, hypertension, diabetes mellitus who presents to the emergency department via EMS after having being found on the floor who then tested positive for COVID and eventually r equired intubation since 09/20/20: Now remains intubated and sedated. reviewed vitals, discussed with RN. tolerating TF. requiring 100% FiO2 to maintain o2 sat, very poor prognosis. Continue to follow clinically with supportive care. Hospitalist Physical - Constitutional Vitals: Temp Pulse Resp BP Pulse Ox 102.0 F H 111 H 17 97/60 90 10/01/20 03:18 10/01/20 06:17 10/01/20 06:15 10/01/20 06:17 10/01/20 06:00 HEART Score - HEART Score Troponin: Troponin T 0.501 ng/mL (0.00-0.029) H* D 09/22/20 10:22 Results - Labs CBC & Chem 7: 10/01/20 02:18 09/30/20 07:19 Labs: Laboratory Last Values WBC 13.4 K/mm3 (4.5-11.0) H 09/30/20 07:19 RBC 3.55 M/mm3 (3.65-5.03) L 09/30/20 07:19 Hgb 10.7 gm/dl (10.1-14.3) 10/01/20 02:18 Hct 32.8 % (30.3-42.9) 10/01/20 02:18 MCV 100 fl (79-97) H 09/30/20 07:19 MCH 32 pg (28-32) 09/30/20 07:19 MCHC 32 % (30-34) 09/30/20 07:19 RDW 16.3 % (13.2-15.2) H 09/30/20 07:19 Plt Count 153 K/mm3 (140-440) 10/01/20 02:18 Lymph % (Auto) 7.3 % (13.4-35.0) L 09/16/20 04:47 Pender % (Auto) 6.6 % (0.0-7.3) 09/16/20 04:47 Eos % (Auto) 0.0 % (0.0-4.3) 09/16/20 04:47 Baso % (Auto) 0.4 % (0.0-1.8) 09/16/20 04:47 Lymph # (Auto) 0.8 K/mm3 (1.2-5.4) L 09/16/20 04:47 [place]ender # (Auto) 0.7 K/mm3 (0.0-0.8) 09/16/20 04:47 Eos # (Auto) 0.0 K/mm3 (0.0-0.4) 09/16/20 04:47 Baso # (Auto) 0.0 K/mm3 (0.0-0.1) 09/16/20 04:47 Seg Neutrophils % 85.7 % (40.0-70.0) H 09/16/20 04:47 Seg Neutrophils # 8.9 K/mm3 (1.8-7.7) H 09/16/20 04:47 PT 13.3 Sec. (12.2-14.9) 09/29/20 13:56 INR 0.95 (0.87-1.13) 09/29/20 13:56 APTT 38.2 Sec. (24.2-36.6) H 09/21/20 02:14 D-Dimer 1776.66 ng/mlDDU (0-234) H 09/30/20 07:19 Heparin Anti-Xa Level 0.78 U.I./ml (0.3-0.7) H 10/01/20 02:18 ABG pH 7.270 (7.320-7.450) L 10/01/20 03:09 POC ABG pCO2 81.8 mmHg (32.0-48.0) H 10/01/20 03:09 ABG pCO2 74.6 mm Hg 09/29/20 02:50 POC ABG pO2 50.9 mmHg (83-108) L 10/01/20 03:09 ABG pO2 63.6 mm Hg (80.0-90.0) L 09/29/20 02:50 POC ABG HCO3 36.7 10/01/20 03:09 ABG HCO3 38.9 mmol/L (20.0-26.0) H 09/29/20 02:50 ABG O2 Saturation 83.5 (0-100) 10/01/20 03:09 ABG O2 Content 15.1 (0.0-44) 09/29/20 02:50 POC ABG Base Excess 7.4 10/01/20 03:09 ABG Base Excess 10.4 mmol/L (-2.0-3.0) H 09/29/20 02:50 ABG Hemoglobin 11.5 (12.0-17.5) L 10/01/20 03:09 ABG Oxyhemoglobin 82.7 (94-98) L 10/01/20 03:09 ABG Carboxyhemoglobin 1.4 % (0.0-5.0) 09/29/20 02:50 ABG Methemoglobin 0.3 (0.0-1.5) 10/01/20 03:09 ABG Sodium 145.5 mmol/L (136.0-145.0) H 10/01/20 03:09 ABG Potassium 4.5 mmol/L (3.40-4.50) 10/01/20 03:09 ABG Chloride 106.0 mmol/L (98-107) 10/01/20 03:09 ABG Glucose 196 mg/dL (65-95) H 10/01/20 03:09 VBG pH 7.368 (7.320-7.420) 09/15/20 18:46 Oxyhemoglobin 90.1 % (95.0-99.0) L 09/29/20 02:50 Carboxyhemoglobin 0.6 (0.5-1.5) 10/01/20 03:09 FiO2 100 % 09/29/20 02:50 FiO2 % 100.0 10/01/20 03:09 Sodium 149 mmol/L (137-145) H 09/30/20 07:19 Potassium 4.1 mmol/L (3.6-5.0) D 09/30/20 07:19 Chloride 107.9 mmol/L (98-107) H 09/30/20 07:19 Carbon Dioxide 38 mmol/L (22-30) H 09/30/20 07:19 Anion Gap 7 mmol/L 09/30/20 07:19 BUN 47 mg/dL (7-17) H 09/30/20 07:19 Creatinine 0.7 mg/dL (0.6-1.2) 09/30/20 07:19 Estimated GFR > 60 ml/min 09/30/20 07:19 BUN/Creatinine Ratio 67 % 09/30/20 07:19 Glucose 253 mg/dL (65-100) H 09/30/20 07:19 POC Glucose 163 mg/dL (70-105) H 10/01/20 05:52 Lactic Acid 2.50 mmol/L (0.7-2.0) H* 09/26/20 13:17 Calcium 7.9 mg/dL (8.4-10.2) L 09/30/20 07:19 Phosphorus 3.10 mg/dL (2.5-4.5) D 09/30/20 07:19 Magnesium 2.30 mg/dL (1.7-2.3) 09/30/20 07:19 Ferritin 770.1 ng/mL (10.0-200.0) H 09/30/20 07:19 Total Bilirubin 0.40 mg/dL (0.1-1.2) 09/30/20 07:19 AST 44 units/L (5-40) H 09/30/20 07:19 ALT 41 units/L (7-56) 09/30/20 07:19 Alkaline Phosphatase 135 units/L (35-129) H 09/30/20 07:19 Ammonia 23.0 umol/L (25-60) L 09/15/20 18:46 Lactate Dehydrogenase 560 units/L (91-180) H 09/30/20 07:19 Total Creatine Kinase 1159 units/L (30-135) H 09/22/20 10:22 CK-MB (CK-2) 14.4 ng/mL (0.0-4.0) H 09/22/20 10:22 CK-MB (CK-2) Rel Index 1.2 (0-4) 09/22/20 10:22 Troponin T 0.501 ng/mL (0.00-0.029) H* D 09/22/20 10:22 C-Reactive Protein 0.40 mg/dL (0.00-1.30) 09/30/20 07:19 Total Protein 5.1 g/dL (6.3-8.2) L 09/30/20 07:19 Albumin 2.5 g/dL (3.9-5) L 09/30/20 07:19 Albumin/Globulin Ratio 1.0 % 09/30/20 07:19 Triglycerides 156 mg/dL (2-149) H 09/21/20 00:46 Cholesterol 139 mg/dL (50-199) 09/21/20 00:46 LDL Cholesterol Direct 85 mg/dL (50-130) 09/21/20 00:46 HDL Cholesterol 22 mg/dL (40-59) L 09/21/20 00:46 Cholesterol/HDL Ratio 6.31 % 09/21/20 00:46 Procalcitonin 0.22 ng/mL (<0.15) 09/30/20 07:19 TSH 34.670 mlU/mL (0.270-4.200) H 09/15/20 18:46 Free T4 0.10 ng/dL (0.76-1.46) L 09/15/20 19:43 Arterial Blood Glucose 196 mg/dL (65-95) H 10/01/20 03:09 Arterial Blood Ionized Calcium 4.5 mg/dL (4.6-5.3) L 10/01/20 03:09 Urine Color Yellow (Yellow) 09/29/20 21:00 Urine Turbidity Slightly-cloudy (Clear) 09/29/20 21:00 Urine pH 5.0 (5.0-7.0) 09/29/20 21:00 Ur Specific [place] 1.025 (1.003-1.030) 09/29/20 21:00 Urine Protein 30 mg/dl mg/dL (Negative) 09/29/20 21:00 Urine Glucose (UA) 150 mg/dL (Negative) 09/29/20 21:00 Urine Ketones Neg mg/dL (Negative) 09/29/20 21:00 Urine Blood Sm (Negative) 09/29/20 21:00 Urine Nitrite Neg (Negative) 09/29/20 21:00 Urine Bilirubin Neg (Negative) 09/29/20 21:00 Urine Urobilinogen 2.0 mg/dL (<2.0) 09/29/20 21:00 Ur Leukocyte Esterase Lg (Negative) 09/29/20 21:00 Urine WBC (Auto) 28.0 /HPF (0.0-6.0) H 09/29/20 21:00 Urine RBC (Auto) 20.0 /HPF (0.0-6.0) 09/29/20 21:00 U Epithel Cells (Auto) 1.0 /HPF (0-13.0) 09/29/20 21:00 Urine Bacteria (Auto) 2+ /HPF (Negative) 09/29/20 21:00 Urine WBC Clumps 2+ /HPF 09/15/20 Unknown Urine Mucus Few /HPF 09/29/20 21:00 Urine Yeast (Budding) 3+ /HPF 09/29/20 21:00 Salicylates < 0.3 mg/dL (2.8-20.0) L 09/15/20 18:46 Urine Opiates Screen Presumptive negative 09/15/20 Unknown Urine Methadone Screen Presumptive negative 09/15/20 Unknown Acetaminophen 5.0 ug/mL (10.0-30.0) L 09/16/20 21:38 Ur Barbiturates Screen Presumptive negative 09/15/20 Unknown Ur Phencyclidine Scrn Presumptive negative 09/15/20 Unknown Ur Amphetamines Screen Presumptive negative 09/15/20 Unknown U Benzodiazepines Scrn Presumptive negative 09/15/20 Unknown Urine Cocaine Screen Presumptive negative 09/15/20 Unknown U Marijuana (THC) Screen Presumptive negative 09/15/20 Unknown Drugs of Abuse Note Disclamer 09/15/20 Unknown Plasma/Serum Alcohol < 0.01 % (0-0.07) 09/15/20 18:46 Coronavirus (PCR) Positive (Negative) A 09/16/20 08:00 Microbiology: Microbiology 09/27/20 16:30 Tracheal Aspirate Sputum Culture - Preliminary Staphylococcus Aureus 09/29/20 13:56 Peripheral/Venous Blood Culture - Preliminary NO GROWTH AFTER 24 HOURS 09/29/20 13:56 Peripheral/Venous Blood Culture - Preliminary NO GROWTH AFTER 24 HOURS Laura/IV: Voiding Method External Female Catheter Active Medications - Current Medications Current Medications: Generic Name Dose Route Start Last Admin Trade Name Freq PRN Reason Stop Dose Admin Acetaminophen 650 mg 09/29/20 16:39 10/01/20 01:03 Acetaminophen 325 Mg/10.15 Ml Oral Liqd Unit Dose PO 650 mg Q6H PRN Administration Pain, Mild (1-3) Albuterol 2.5 mg 09/20/20 12:28 Albuterol 2.5 Mg/3 Ml Nebu IH Q4HRT PRN Shortness Of Breath Lipase/Protease/Amylase 1 each 09/22/20 08:06 Lipase 10,500/Protease 25,000/Amylase 43,750 (Units) Dr Cap FEEDTUBE PRN PRN For Clogged Feeding Tube Ascorbic Acid 500 mg 09/22/20 22:00 09/30/20 21:08 Ascorbic Acid 500 Mg Tab PO 500 mg BID AMANDA Administration Aspirin 162 mg 09/21/20 15:00 09/30/20 10:34 Aspirin 81 Mg Tab Chew PO 162 mg QDAY AMANDA Administration Cholecalciferol 5,000 unit 09/23/20 10:00 09/30/20 10:34 Cholecalciferol (Vit D3) 5,000 Unit Tab PO 5,000 unit DAILY AMANDA Administration Clopidogrel Bisulfate 75 mg 09/22/20 10:00 09/30/20 10:34 Clopidogrel 75 Mg Tab PO 75 mg QDAY AMANDA Administration Dextrose 50 ml 09/16/20 21:24 Dextrose 50% In Water (25gm) 50 Ml Syringe IV Q30MIN PRN Hypoglycemia Protocol Famotidine 20 mg 09/22/20 10:00 09/30/20 21:08 Famotidine 20 Mg Tab PO 20 mg BID AMANDA Administration Fentanyl 50 mcg 09/20/20 19:02 Fentanyl 100 Mcg/2 Ml Inj IV Q10MIN PRN ANALGESIA Heparin Sodium (Porcine) 3,100 unit 09/29/20 13:12 09/29/20 13:53 Heparin 10,000 Units/10 Ml Vial 40 unit/kg (3100 unit) 3,100 unit IV Administration Q6H PRN Anti-Xa Assay < 0.1 units/ml Hydrophilic Ointment 1 applic 09/20/20 19:02 Lip Therapy Vaseline TP Q2HR PRN Dry Lips Fentanyl Citrate 2,000 mcg in 100 mls @ 3.925 mls/hr 09/20/20 20:00 09/30/20 20:24 Fentanyl Drip Premix IV 1 mcg/kg/hr TITR AMANDA 3.925 mls/hr Administration Protocol 1 MCG/KG/HR Cefepime HCl 2 gm in 100 mls @ 200 mls/hr 09/29/20 14:00 09/30/20 21:39 Cefepime/Ns 2 Gm/100 Ml IV Infused Q12HR [facility] Infusion Protocol Heparin Sodium/Sodium Chloride 25,000 unit in 500 mls @ 23 mls/hr 09/29/20 14:00 10/01/20 04:27 Heparin/ 0.45% Nacl-25,000 Unit/500 Ml IV 750 units/hr TITR AMANDA 15 mls/hr Titration Protocol 1,150 UNITS/HR Vancomycin HCl 1,250 mg/ 275 mls @ 166.667 mls/hr 09/30/20 10:00 09/30/20 22:49 Sodium Chloride IV Infused Q12H AMANDA Infusion Insulin Glargine 35 units 10/01/20 08:00 Insulin Glargine 100 Units/Ml SUB-Q QAMDIAB [facility] Insulin Glargine 30 units 09/30/20 22:00 09/30/20 21:11 Insulin Glargine 100 Units/Ml SUB-Q 30 units QHS [facility] Administration Insulin Human Lispro 6 unit 09/28/20 12:00 10/01/20 06:15 Insulin Lispro 100 Unit/Ml SUB-Q 6 unit Q6HR [facility] Administration Insulin Human Regular 0 units 09/23/20 12:00 10/01/20 06:15 Insulin Regular, Human 100 Units/1 Ml SUB-Q 3 units Q6H [facility] Administration Protocol Levothyroxine Sodium 125 mcg 09/18/20 06:00 10/01/20 06:14 Levothyroxine 125 Mcg Tab PO 125 mcg DAILY@0600 [facility] Administration Metoprolol Tartrate 2.5 mg 09/21/20 15:00 10/01/20 06:16 Metoprolol Tartrate 5 Mg/5 Ml Inj IV Not Given Q8HR [facility] Multi-Ingred Cream/Lotion/Oil/Oint 1 applic 09/20/20 19:02 Mineral Oil/Petrolatum, White Ophth Oint 3.5 Gm OU Q4HR PRN Dry Eye(s) Naloxone HCl 0.1 mg 09/15/20 18:36 Naloxone 0.4 Mg/1 Ml Inj IV Q2MIN PRN Res Rate </= 8 or 02 SAT < 92% Nitroglycerin 0.5 inch 09/22/20 06:00 10/01/20 06:17 Nitroglycerin 2% Oint 1 Gm TP Not Given BIDNTG [facility] Protocol Senna 8.8 mg 09/24/20 22:00 09/30/20 21:08 Sennosides Oral Liqd 8.8 Mg/5 Ml Oral Liqd PO 8.8 mg QHS AMANDA Administration Sertraline HCl 25 mg 09/17/20 12:00 09/30/20 10:34 Sertraline 25 Mg Tab PO 25 mg QDAY AMANDA Administration Simple Syrup 15 ml 09/22/20 08:06 Simple Syrup 15 Ml FEEDTUBE PRN PRN Hypoglycemia Simple Syrup 30 ml 09/22/20 08:06 Simple Syrup 15 Ml FEEDTUBE PRN PRN Hypoglycemia Sodium Bicarbonate 325 mg 09/22/20 08:06 Sodium Bicarbonate 325 Mg Tab FEEDTUBE PRN PRN For Clogged Feeding Tube Sodium Chloride 10 ml 09/16/20 10:00 09/30/20 21:09 Sodium Chloride 0.9% 10 Ml Flush Syringe IV 10 ml BID AMANDA Administration Sodium Chloride 10 ml 09/15/20 22:09 Sodium Chloride 0.9% 10 Ml Flush Syringe IV PRN PRN LINE FLUSH Sodium Chloride 5 ml 09/25/20 02:30 Sodium Chloride 0.9% 500 Ml Ivpb IV DIRECT PRN [employer] Zinc Sulfate 220 mg 09/22/20 22:00 09/30/20 21:08 Zinc Sulfate 220 Mg Cap PO 220 mg BID AMANDA Administration Nutrition/Malnutrition Assess - Dietary Evaluation Nutrition/Malnutrition Findings: Nutrition Notes Start: 09/16/20 15:13 Freq: Status: Active Protocol: Document 09/30/20 16:55 EB (Rec: 09/30/20 17:01 EB [id number]) Nutrition Notes Initial or Follow up Reassessment Current Diagnosis Diabetes,Hypertension, Respiratory Failure Other Pertinent Diagnosis pneu, drug OD, COVID-19 Current Diet Vital AF 1.2 at 60 ml/hr Labs/Tests Na 149 Glu 253 Pertinent Medications Vit. C Vit. D Lantus Humalog Height 5 ft 6.14 in Weight 78.5 kg [place] Body Weight (kg) 59.40 BMI 27.8 Weight Status Appropriate Subjective/Other Information RD consulted for MST. Slight skin tear on sacral reported by RN today. Pt continues tolerating TF at goal rate. Burn Absent Trauma Absent Current % PO Negligible Minimum of two criteria No physical signs of malnutrition #1 Nutrition Diagnosis Inadequate oral intake Diagnosis Progress(for reassessment Continues documentation) Is patient on ventilator? Yes Is Patient Ambulatory and/or Out of Bed No REE-([facility]-confined to bed) [phone] Calculation Used for Recommendations [facility] Additional Notes Protein: (1.2-2g/kg) 94-157g Fluid: 1 ml/kcal Nutrition Intervention Change Diet Order: Continue TF Nutrition Support: Vital AF 1.2 at 60 ml/hr Flush 75 ml q4h or per MD Kcal 1,728 Protein (gm) 108 Fluid (mL) 1,168 Goal #1 Meet at least 75% of energy and protein needs via TF Goal #2 Sacral wound healing Anticipated Discharge Needs: Unable to determine at this time Follow-Up By: 10/03/20 Additional Comments F/u: BG and stable TF and sacral wound healing
[2020-09-30] MEDS: SENNOSIDES ORAL LIQD 8.8 MG/5 ML ORAL LIQD PO SCH (21:08)
[2020-09-30] MEDS ORDERED: INSULIN GLARGINE 100 UNITS/ML SUB-Q SCH (22:00)
[2020-10-01] MEDS: INSULIN LISPRO 100 UNIT/ML SUB-Q SCH ×4 (00:02→17:56)
[2020-10-01] MEDS: INSULIN REGULAR, HUMAN 100 UNITS/1 ML SUB-Q SCH ×5 (00:03→17:57)
[2020-10-01] MEDS: ACETAMINOPHEN 325 MG/10.15 ML ORAL LIQD UNIT DOSE PO PRN ×2 (01:03→17:43)
[2020-10-01] MEDS: FREE WATER PO SCH ×4 (02:14→14:18)
[2020-10-01 02:40] LABS: Hematocrit 32.8 % (30.3-42.9); Hemoglobin 10.7 gm/dl (10.1-14.3)
[2020-10-01] MEDS: LEVOTHYROXINE 125 MCG TAB PO SCH (06:14)
[2020-10-01] MEDS: METOPROLOL TARTRATE 5 MG/5 ML INJ IV SCH ×2 (06:16→14:20)
[2020-10-01] MEDS: NITROGLYCERIN 2% OINT 1 GM TP SCH ×2 (06:17→14:21)
[2020-10-01] MEDS ORDERED: INSULIN GLARGINE 100 UNITS/ML SUB-Q SCH (08:00)
--- NOTE | 2020-10-01 10:32 | Progress Note ---
Assessment and Plan Respiratory failure due to COVID pneumonia Acute Non-ST elevation myocardial infarction during hospital course Echocardiogram shows well-preserved left ventricular systolic function, EF 50- 55%. Recommendations: Continue medical therapy for underlying coronary artery disease as tolerated. Patient is not a candidate for aggressive and invasive cardiac therapies, in the setting of respiratory failure due to severe viral pneumonia and sepsis. Supportive cardiac management. Subjective Date of service: 10/01/20 Principal diagnosis: Ac encephalopathy; CAP; Sepsis; COVID-19 infxn; Ac hypoxemic resp failure Interval history: Remains unresponsive on the ventilator. Objective Vital Signs Temp Pulse Pulse Resp BP Pulse Ox 10/01/20 09:10 101.7 F H 10/01/20 06:17 111 H 97/60 10/01/20 06:16 107 H 97/60 10/01/20 06:15 108 H 17 97/60 10/01/20 06:00 107 H 18 99/66 90 10/01/20 05:45 108 H 18 103/66 90 10/01/20 05:30 108 H 18 103/64 90 10/01/20 05:15 109 H 18 102/66 89 10/01/20 05:00 109 H 18 95/63 10/01/20 04:45 109 H 18 96/66 89 10/01/20 04:30 108 H 19 93/61 89 10/01/20 04:15 109 H 18 99/63 89 10/01/20 04:00 108 H 105 H 18 97/65 91 10/01/20 03:45 109 H 18 97/65 10/01/20 03:30 108 H 18 95/63 89 10/01/20 03:18 102.0 F H 10/01/20 03:15 111 H 18 103/62 88 10/01/20 03:00 113 H 18 93/63 89 10/01/20 02:45 112 H 18 103/67 88 10/01/20 02:30 114 H 18 103/67 90 10/01/20 02:15 115 H 18 100/69 88 10/01/20 02:00 117 H 19 107/69 80 L 10/01/20 01:45 114 H 18 102/61 85 10/01/20 01:30 114 H 19 100/63 84 10/01/20 01:15 114 H 19 100/66 87 10/01/20 01:00 113 H 18 106/67 10/01/20 00:45 113 H 19 97/64 86 10/01/20 00:30 117 H 18 104/65 86 10/01/20 00:15 113 H 17 103/66 10/01/20 00:00 114 H 105 H 18 99/66 88 09/30/20 23:57 102.2 F H 09/30/20 23:45 111 H 18 110/62 09/30/20 23:30 116 H 18 111/69 09/30/20 23:15 111 H 18 92/68 09/30/20 23:09 113 H 19 97/67 86 09/30/20 23:00 112 H 18 97/67 09/30/20 22:46 110 H 18 109/73 87 09/30/20 22:45 111 H 18 107/67 09/30/20 22:30 109 H 18 108/68 89 09/30/20 22:15 110 H 18 117/70 87 09/30/20 22:00 113 H 16 111/71 09/30/20 21:45 110 H 16 109/73 88 09/30/20 21:30 112 H 18 112/71 09/30/20 21:15 112 H 19 103/67 09/30/20 21:09 107 H 98/68 09/30/20 21:00 112 H 21 98/68 09/30/20 20:45 108 H 18 92/68 09/30/20 20:30 107 H 18 97/60 09/30/20 20:15 106 H 18 99/70 87 09/30/20 20:03 106 H 92/66 88 09/30/20 20:00 101.1 F H 107 H 105 H 18 92/66 91 09/30/20 19:45 107 H 18 98/71 88 09/30/20 19:30 106 H 18 99/69 09/30/20 19:15 106 H 18 98/68 09/30/20 19:00 106 H 18 91/64 09/30/20 18:45 107 H 18 94/69 91 09/30/20 18:30 105 H 18 105/63 90 09/30/20 18:15 105 H 18 105/71 88 09/30/20 18:08 104 H 95/68 89 08/17/21 18:00 105 H 18 95/68 09/30/20 17:45 104 H 18 92/64 88 09/30/20 17:30 104 H 18 95/67 09/30/20 17:15 103 H 18 91/66 89 09/30/20 17:00 104 H 18 101/64 09/30/20 16:45 105 H 18 96/68 09/30/20 16:30 103 H 18 91/65 09/30/20 16:15 103 H 18 97/64 09/30/20 16:00 103 H 103 H 18 89/63 91 09/30/20 15:45 104 H 18 99/68 09/30/20 15:30 103 H 18 91/64 09/30/20 15:15 102 H 18 89/62 89 09/30/20 15:00 101 H 18 92/62 09/30/20 14:45 103 H 18 92/66 09/30/20 14:30 100 H 18 94/63 92 09/30/20 14:15 102 H 18 101/67 09/30/20 14:14 102 H 101/67 92 09/30/20 14:00 103 H 18 97/62 09/30/20 13:45 104 H 18 95/65 09/30/20 13:30 103 H 18 88/63 90 09/30/20 13:15 105 H 18 99/65 92 09/30/20 13:00 104 H 18 88/49 92 09/30/20 12:45 105 H 18 89/46 89 09/30/20 12:30 107 H 18 95/51 90 09/30/20 12:15 106 H 18 91/52 90 09/30/20 12:00 98.3 F 107 H 107 H 18 99/49 89 09/30/20 11:45 109 H 18 99/49 92 09/30/20 11:30 107 H 18 97/50 91 09/30/20 11:18 110 H 96/46 92 09/30/20 11:15 108 H 18 96/46 92 09/30/20 11:01 108 H 18 96/39 91 09/30/20 10:45 107 H 18 98/48 90 - Physical Examination Narrative exam: Deferred due to COVID-19 isolation protocol. General: Other (Unresponsive, on the vent) Cardiac: Positive: Reg Rate and Rhythm - Labs and Meds CBC 10/01/20 Range/Units 02:18 Hgb 10.7 (10.1-14.3) gm/dl Hct 32.8 (30.3-42.9) % Plt Count 153 (140-440) K/mm3 - Allied health notes Allied health notes reviewed: nursing
[2020-10-01] MEDS: CEFEPIME/NS 2 GM/100 ML 2 GM/100 ML BAG IV SCH (10:37)
[2020-10-01] MEDS: ZINC SULFATE 220 MG CAP PO SCH (10:37)
[2020-10-01] MEDS: SERTRALINE 25 MG TAB PO SCH (10:37)
[2020-10-01] MEDS: ASPIRIN 81 MG TAB CHEW PO SCH (10:37)
[2020-10-01] MEDS: ASCORBIC ACID 500 MG TAB PO SCH (10:37)
[2020-10-01] MEDS: FAMOTIDINE 20 MG TAB PO SCH (10:37)
[2020-10-01] MEDS: CHOLECALCIFEROL (VIT D3) 5,000 UNIT TAB PO SCH (10:37)
[2020-10-01] MEDS: VANCOMYCIN 1,250 MG in SODIUM CHLORIDE 0.9% 250ML 250 ML IV SCH (10:37)
[2020-10-01 10:47] LABS: Hematocrit 31.6 % (30.3-42.9); Hemoglobin 10.5 gm/dl (10.1-14.3); Mean Corpuscular HGB Conc 33 % (30-34); Mean Corpuscular Volume 98 fl (79-97); Platelet Count 143 K/mm3 (140-440); Red Blood Count 3.21 M/mm3 (3.65-5.03); Red Cell Distribution Width 15.5 % (13.2-15.2)
[2020-10-01] MEDS: CLOPIDOGREL 75 MG TAB PO SCH (10:52)
--- NOTE | 2020-10-01 10:59 | Progress Note ---
<AGUSTINA RUSH - Last Filed: 10/01/20 14:10> Assessment and Plan Assessment and plan: Assessment and Plan Assessment and plan: This is a 54-year-old female with bipolar disorder, hypothyroidism, hypertension, diabetes mellitus admitted for acute hypoxic respiratory failure, COVID-19 pneumonia, NSTEMI Neuro: Acute metabolic encephalopathy, h/o bipolar -Psych consult, appreciate recommendations- re-engage when clinically appropriate -Zoloft - continue -intact cough/gag, PERRL -Sedated with fentanyl, goal RASS 0 to -1 -daily SAT limited by hypoxia -family updated on plan of care Cardiology: SR, NSTEMI, h/o HTN -Cardiology consulted, appreciate recommendations -Echocardiogram shows diastolic function normal, LVEF 50 to 55%, mild to moderate concentric LVH, mild AR, mild MR, trace TR, RVSP normal at 17 mmHg -Aspirin 162, Plavix 75, beta-genny, as needed nitroglycerin ntg- with hold parameters hold parameters on metop -Blood pressure monitoring per protocol --MAP 70's -will need CT angio when stable Respiratory: Acute hypoxic respiratory failure; current every day smoker -On mechanical ventilation, wean as tolerated ACPRV [id number] see RT notes -trending ABG -[id number] this AM -agonal / air hunger bleeding seems worse today -CCM following -VAP bundle -SPO2 monitoring -continue nebs -current smoker GI: NAD -Nutrition consulted, appreciate recommendations -Tube feedings to goal -PPI -BM: [place] : Urinary retention; hyperNa -purwick -Patient is on doxazosin, flomax - dc given hypotension -prn bladder scan -net pos 2.6L over 24 hours- -FWF 100 every 4 hours for Na; continue to follow -vit D3 supplementation -continue to trend cr -AM labs ordered Endo: Hypothyroidism, h/o DM; hyperglycemia -SSI -Scheduled lispro -Accu-Cheks every 6h -Synthroid -Avoid hypoglycemia Heme: coagulopathic covid/on IV hep -Trend CBC -Transfuse for hemoglobin less than 7 -Systemic anticoagulation with heparin drip -oral bleeding noted on exam -US neg for DVT ID: COVID-19 pneumonia, UTI, sepsis, lactic acidosis -COVID-19 PCR + 09/16/2020 -Infectious disease consulted, appreciate recommendations -S/p remdesivir 5 days -Dexamethasone -09/24 Actemra -Contact/droplet precautions -Trend COVID-19 inflammatory markers -febrile today PRN tylenol -continue to trend temp and WBC curve -follow culture data -ID following -continue cefipime/vanc The high probability of a clinically significant, sudden or life threatening deterioration of the [cardiorespiratory] system(s) required my full and direct attention, intervention and personal management. The aggregate critical care time was [60] minutes. This time is in addition to time spent performing reported procedures but includes the following: [x] Data Review and interpretation [x] Patient assessment and monitoring of vital signs [x] Documentation [x] Medication orders and management Disposition Plan: icu Total Time Spent with Patient (Minutes): 60 History Interval history: This is a 54-year-old female with bipolar disorder, hypothyroidism, hypertension, diabetes mellitus who presents to the emergency department via EMS after having being found on the floor with a generalized weakness vs syncope as the patient is in the case that she took some trazodone in order to get to sleep but cannot recall how many tablets she took her dosage. The final regimen patient was confused but arousable and responds to questions during her course of stay. In the emergency department she was found to be hypoxic upon arrival with O2 sat of 82% on room air and was placed on supplemental oxygen. Work-up in the emergency department included a CXR which revealed patchy parenchymal opacities, hyponatremia of 128, hypokalemia 3.2, elevated blood glucose of 388, lactic acidosis 2.7, elevated TSH at 34.67 and free T4 at 0.1. UA revealed UTI and tox screen revealed Tylenol level of 9.1. Patient was admitted to the hospital service with acute hypoxic respiratory failure secondary to pneumonia, hypokalemia, drug overdose and hyperglycemia. She was admitted as a COVID-19 PUI and infectious disease was also consulted. Psych was consulted for history of bipolar and possible drug overdose. Upon arrival to the ICU for progressive shortness of breath and progressively worsening CXR patient was noted to have an NSTEMI and cardiology was consulted. 09/16/2020: COVID-pneumonia. Coronavirus PCR positive, Patient on 5 L nasal cannula oxygen 09/17/2020: Covid pneumonia, Covid PCR positive yesterday. Patient on 5 L nasal cannula oxygen. ID consult appreciated, On remdesivir 09/18/2020: Still on 5 L nasal cannula oxygen, Saturations dropped to 88% on 3 L nasal cannula oxygen, Trying to wean but not possible, Continue remdesivir 09/20/2020: Patient is severely hypoxemic, requiring very high flow oxygen And intermittent BiPAP, x-ray chest worsening infiltrates. Patient is severely hypoxemic even on BiPAP, civil engineering professional recommend. Transfer to ICU for close observation and possible intubation if no improvement . I called MATTYK patient's mother and discussed in detail patient's deterioration, severe hypoxemia, Transfer to ICU, possible intubation if needed she informed me that. Her recently, With Covid infection, and she herself is Covid pos itive. 09/21/2020; patient was intubated yesterday, On ventilatory support, Non-ST elevation GA, check echocardiogram, Cardiology evaluation noted and appreciated. Discussed with 09/22: Patient's PEEP was increased to 14. [facility], will order to remove her Laura catheter today and IV heparin was changed to IV Lovenox 09/23: Continue current medical management for NSTEMI, advance O ETT by 1 cm, increase PEEP and reduced FiO2 per [facility]. Patient had retention today and Laura will be replaced with 30 straight cath and patient will be started on Flomax. 09/24: Patient received Actemra today, [facility] added doxazosin, we increase Lantus and SSI today for tighter glycemic control. 09/25: No acute events reported overnight. Increase in lantus. Vent changes made in accordance to ABG. 09/26: No acute overnight events reported. increased lantus again 09/27: family updated by [facility], BLE dopplars pending, increased lantus. 09/28: [facility] reduced FiO2 to 85%, avoiding bilateral lower extremity Doppler ultra sounds. Patient remains sedated on fentanyl. 09/29 remains intubated requiring high vent support- see systems review above 09-30 remains intubated on pressors- see systems review above 10-01 remains intubated and on pressors; agonal breathing on ACPRV [id number]; on dual plt therapy and heparin; oozing from mouth (plts 143/hgb 10)- see systems review above Disposition Plan: icu Total Time Spent with Patient (Minutes): 60 History Interval history: no acute events overnight Hospitalist Physical - Constitutional Vitals: Temp Pulse Resp BP Pulse Ox 101.7 F H 111 H 17 97/60 90 10/01/20 09:10 10/01/20 06:17 10/01/20 06:15 10/01/20 06:17 10/01/20 06:00 General appearance: Present: no acute distress, well-nourished, other (Intubated on vent, sedated) - EENT Eyes: Present: PERRL ENT: clear oral mucosa - Neck Neck: Present: supple - Cardiovascular Rhythm: regular Heart Sounds: Present: S1 & S2 - Extremities Extremity abnormal: edema Peripheral Pulses: within normal limits - Abdominal General gastrointestinal: soft - Integumentary Integumentary: Present: clear, warm - Psychiatric Psychiatric: other - Neurologic Neurologic: other - Allied Health Allied health notes reviewed: nursing, RT, case management HEART Score - HEART Score Troponin: Troponin T 0.501 ng/mL (0.00-0.029) H* D 09/22/20 10:22 Results - Labs CBC & Chem 7: 10/01/20 10:34 10/01/20 10:34 Labs: Laboratory Last Values WBC 13.4 K/mm3 (4.5-11.0) H 10/01/20 10:34 RBC 3.21 M/mm3 (3.65-5.03) L 10/01/20 10:34 Hgb 10.5 gm/dl (10.1-14.3) 10/01/20 10:34 Hct 31.6 % (30.3-42.9) 10/01/20 10:34 MCV 98 fl (79-97) H 10/01/20 10:34 MCH 33 pg (28-32) H 10/01/20 10:34 MCHC 33 % (30-34) 10/01/20 10:34 RDW 15.5 % (13.2-15.2) H 10/01/20 10:34 Plt Count 143 K/mm3 (140-440) 10/01/20 10:34 Lymph % (Auto) 7.3 % (13.4-35.0) L 09/16/20 04:47 [place] % (Auto) 6.6 % (0.0-7.3) 09/16/20 04:47 Eos % (Auto) 0.0 % (0.0-4.3) 09/16/20 04:47 Baso % (Auto) 0.4 % (0.0-1.8) 09/16/20 04:47 Lymph # (Auto) 0.8 K/mm3 (1.2-5.4) L 09/16/20 04:47 [place] # (Auto) 0.7 K/mm3 (0.0-0.8) 09/16/20 04:47 Eos # (Auto) 0.0 K/mm3 (0.0-0.4) 09/16/20 04:47 Baso # (Auto) 0.0 K/mm3 (0.0-0.1) 09/16/20 04:47 Seg Neutrophils % 85.7 % (40.0-70.0) H 09/16/20 04:47 Seg Neutrophils # 8.9 K/mm3 (1.8-7.7) H 09/16/20 04:47 PT 13.3 Sec. (12.2-14.9) 09/29/20 13:56 INR 0.95 (0.87-1.13) 09/29/20 13:56 APTT 38.2 Sec. (24.2-36.6) H 09/21/20 02:14 D-Dimer 1776.66 ng/mlDDU (0-234) H 09/30/20 07:19 Heparin Anti-Xa Level 0.78 U.I./ml (0.3-0.7) H 10/01/20 02:18 ABG pH 7.270 (7.320-7.450) L 10/01/20 03:09 POC ABG pCO2 81.8 mmHg (32.0-48.0) H 10/01/20 03:09 ABG pCO2 74.6 mm Hg 09/29/20 02:50 POC ABG pO2 50.9 mmHg (83-108) L 10/01/20 03:09 ABG pO2 63.6 mm Hg (80.0-90.0) L 09/29/20 02:50 POC ABG HCO3 36.7 10/01/20 03:09 ABG HCO3 38.9 mmol/L (20.0-26.0) H 09/29/20 02:50 ABG O2 Saturation 83.5 (0-100) 10/01/20 03:09 ABG O2 Content 15.1 (0.0-44) 09/29/20 02:50 POC ABG Base Excess 7.4 10/01/20 03:09 ABG Base Excess 10.4 mmol/L (-2.0-3.0) H 09/29/20 02:50 ABG Hemoglobin 11.5 (12.0-17.5) L 10/01/20 03:09 ABG Oxyhemoglobin 82.7 (94-98) L 10/01/20 03:09 ABG Carboxyhemoglobin 1.4 % (0.0-5.0) 09/29/20 02:50 ABG Methemoglobin 0.3 (0.0-1.5) 10/01/20 03:09 ABG Sodium 145.5 mmol/L (136.0-145.0) H 10/01/20 03:09 ABG Potassium 4.5 mmol/L (3.40-4.50) 10/01/20 03:09 ABG Chloride 106.0 mmol/L (98-107) 10/01/20 03:09 ABG Glucose 196 mg/dL (65-95) H 10/01/20 03:09 VBG pH 7.368 (7.320-7.420) 09/15/20 18:46 Oxyhemoglobin 90.1 % (95.0-99.0) L 09/29/20 02:50 Carboxyhemoglobin 0.6 (0.5-1.5) 10/01/20 03:09 FiO2 100 % 09/29/20 02:50 FiO2 % 100.0 10/01/20 03:09 Sodium 149 mmol/L (137-145) H 09/30/20 07:19 Potassium 4.1 mmol/L (3.6-5.0) D 09/30/20 07:19 Chloride 107.9 mmol/L (98-107) H 09/30/20 07:19 Carbon Dioxide 38 mmol/L (22-30) H 09/30/20 07:19 Anion Gap 7 mmol/L 09/30/20 07:19 BUN 47 mg/dL (7-17) H 09/30/20 07:19 Creatinine 0.7 mg/dL (0.6-1.2) 09/30/20 07:19 Estimated GFR > 60 ml/min 09/30/20 07:19 BUN/Creatinine Ratio 67 % 09/30/20 07:19 Glucose 253 mg/dL (65-100) H 09/30/20 07:19 POC Glucose 163 mg/dL (70-105) H 10/01/20 05:52 Lactic Acid 2.50 mmol/L (0.7-2.0) H* 09/26/20 13:17 Calcium 7.9 mg/dL (8.4-10.2) L 09/30/20 07:19 Phosphorus 3.10 mg/dL (2.5-4.5) D 09/30/20 07:19 Magnesium 2.30 mg/dL (1.7-2.3) 09/30/20 07:19 Ferritin 770.1 ng/mL (10.0-200.0) H 09/30/20 07:19 Total Bilirubin 0.40 mg/dL (0.1-1.2) 09/30/20 07:19 AST 44 units/L (5-40) H 09/30/20 07:19 ALT 41 units/L (7-56) 09/30/20 07:19 Alkaline Phosphatase 135 units/L (35-129) H 09/30/20 07:19 Ammonia 23.0 umol/L (25-60) L 09/15/20 18:46 Lactate Dehydrogenase 560 units/L (91-180) H 09/30/20 07:19 Total Creatine Kinase 1159 units/L (30-135) H 09/22/20 10:22 CK-MB (CK-2) 14.4 ng/mL (0.0-4.0) H 09/22/20 10:22 CK-MB (CK-2) Rel Index 1.2 (0-4) 09/22/20 10:22 Troponin T 0.501 ng/mL (0.00-0.029) H* D 09/22/20 10:22 C-Reactive Protein 0.40 mg/dL (0.00-1.30) 09/30/20 07:19 Total Protein 5.1 g/dL (6.3-8.2) L 09/30/20 07:19 Albumin 2.5 g/dL (3.9-5) L 09/30/20 07:19 Albumin/Globulin Ratio 1.0 % 09/30/20 07:19 Triglycerides 156 mg/dL (2-149) H 09/21/20 00:46 Cholesterol 139 mg/dL (50-199) 09/21/20 00:46 LDL Cholesterol Direct 85 mg/dL (50-130) 09/21/20 00:46 HDL Cholesterol 22 mg/dL (40-59) L 09/21/20 00:46 Cholesterol/HDL Ratio 6.31 % 09/21/20 00:46 Procalcitonin 0.22 ng/mL (<0.15) 09/30/20 07:19 TSH 34.670 mlU/mL (0.270-4.200) H 09/15/20 18:46 Free T4 0.10 ng/dL (0.76-1.46) L 09/15/20 19:43 Arterial Blood Glucose 196 mg/dL (65-95) H 10/01/20 03:09 Arterial Blood Ionized Calcium 4.5 mg/dL (4.6-5.3) L 10/01/20 03:09 Urine Color Yellow (Yellow) 09/29/20 21:00 Urine Turbidity Slightly-cloudy (Clear) 09/29/20 21:00 Urine pH 5.0 (5.0-7.0) 09/29/20 21:00 Ur Specific [place] 1.025 (1.003-1.030) 09/29/20 21:00 Urine Protein 30 mg/dl mg/dL (Negative) 09/29/20 21:00 Urine Glucose (UA) 150 mg/dL (Negative) 09/29/20 21:00 Urine Ketones Neg mg/dL (Negative) 09/29/20 21:00 Urine Blood Sm (Negative) 09/29/20 21:00 Urine Nitrite Neg (Negative) 09/29/20 21:00 Urine Bilirubin Neg (Negative) 09/29/20 21:00 Urine Urobilinogen 2.0 mg/dL (<2.0) 09/29/20 21:00 Ur Leukocyte Esterase Lg (Negative) 09/29/20 21:00 Urine WBC (Auto) 28.0 /HPF (0.0-6.0) H 09/29/20 21:00 Urine RBC (Auto) 20.0 /HPF (0.0-6.0) 09/29/20 21:00 U Epithel Cells (Auto) 1.0 /HPF (0-13.0) 09/29/20 21:00 Urine Bacteria (Auto) 2+ /HPF (Negative) 09/29/20 21:00 Urine WBC Clumps 2+ /HPF 09/15/20 Unknown Urine Mucus Few /HPF 09/29/20 21:00 Urine Yeast (Budding) 3+ /HPF 09/29/20 21:00 Salicylates < 0.3 mg/dL (2.8-20.0) L 09/15/20 18:46 Urine Opiates Screen Presumptive negative 09/15/20 Unknown Urine Methadone Screen Presumptive negative 09/15/20 Unknown Acetaminophen 5.0 ug/mL (10.0-30.0) L 09/16/20 21:38 Ur Barbiturates Screen Presumptive negative 09/15/20 Unknown Ur Phencyclidine Scrn Presumptive negative 09/15/20 Unknown Ur Amphetamines Screen Presumptive negative 09/15/20 Unknown U Benzodiazepines Scrn Presumptive negative 09/15/20 Unknown Urine Cocaine Screen Presumptive negative 09/15/20 Unknown U Marijuana (THC) Screen Presumptive negative 09/15/20 Unknown Drugs of Abuse Note Disclamer 09/15/20 Unknown Plasma/Serum Alcohol < 0.01 % (0-0.07) 09/15/20 18:46 Coronavirus (PCR) Positive (Negative) A 09/16/20 08:00 Microbiology: Microbiology 09/27/20 16:30 Tracheal Aspirate Sputum Culture - Preliminary Staphylococcus Aureus 09/29/20 13:56 Peripheral/Venous Blood Culture - Preliminary NO GROWTH AFTER 24 HOURS 09/29/20 13:56 Peripheral/Venous Blood Culture - Preliminary NO GROWTH AFTER 24 HOURS Laura/IV: Voiding Method External Female Catheter Active Medications - Current Medications Current Medications: Generic Name Dose Route Start Last Admin Trade Name Freq PRN Reason Stop Dose Admin Acetaminophen 650 mg 09/29/20 16:39 10/01/20 01:03 Acetaminophen 325 Mg/10.15 Ml Oral Liqd Unit Dose PO 650 mg Q6H PRN Administration Pain, Mild (1-3) Albuterol 2.5 mg 09/20/20 12:28 Albuterol 2.5 Mg/3 Ml Nebu IH Q4HRT PRN Shortness Of Breath Lipase/Protease/Amylase 1 each 09/22/20 08:06 Lipase 10,500/Protease 25,000/Amylase 43,750 (Units) Dr Young FEEDTUBE PRN PRN For Clogged Feeding Tube Ascorbic Acid 500 mg 09/22/20 22:00 10/01/20 10:37 Ascorbic Acid 500 Mg Tab PO 500 mg BID AMANDA Administration Aspirin 162 mg 09/21/20 15:00 10/01/20 10:37 Aspirin 81 Mg Tab Chew PO 162 mg QDAY AMANDA Administration Cholecalciferol 5,000 unit 09/23/20 10:00 10/01/20 10:37 Cholecalciferol (Vit D3) 5,000 Unit Tab PO 5,000 unit DAILY AMANDA Administration Clopidogrel Bisulfate 75 mg 09/22/20 10:00 09/30/20 10:34 Clopidogrel 75 Mg Tab PO 75 mg QDAY AMANDA Administration Dextrose 50 ml 09/16/20 21:24 Dextrose 50% In Water (25gm) 50 Ml Syringe IV Q30MIN PRN Hypoglycemia Protocol Famotidine 20 mg 09/22/20 10:00 10/01/20 10:37 Famotidine 20 Mg Tab PO 20 mg BID AMANDA Administration Fentanyl 50 mcg 09/20/20 19:02 Fentanyl 100 Mcg/2 Ml Inj IV Q10MIN PRN ANALGESIA Heparin Sodium (Porcine) 3,100 unit 09/29/20 13:12 09/29/20 13:53 Heparin 10,000 Units/10 Ml Vial 40 unit/kg (3100 unit) 3,100 unit IV Administration Q6H PRN Anti-Xa Assay < 0.1 units/ml Hydrophilic Ointment 1 applic 09/20/20 19:02 Lip Therapy Vaseline TP Q2HR PRN Dry Lips Fentanyl Citrate 2,000 mcg in 100 mls @ 3.925 mls/hr 09/20/20 20:00 09/30/20 20:24 Fentanyl Drip Premix IV 1 mcg/kg/hr TITR AMANDA 3.925 mls/hr Administration Protocol 1 MCG/KG/HR Cefepime HCl 2 gm in 100 mls @ 200 mls/hr 09/29/20 14:00 10/01/20 10:37 Cefepime/Ns 2 Gm/100 Ml IV 200 mls/hr Q12HR AMANDA Administration Protocol Heparin Sodium/Sodium Chloride 25,000 unit in 500 mls @ 23 mls/hr 09/29/20 14:00 10/01/20 04:27 Heparin/ 0.45% Nacl-25,000 Unit/500 Ml IV 750 units/hr TITR AMANDA 15 mls/hr Titration Protocol 1,150 UNITS/HR Vancomycin HCl 1,250 mg/ 275 mls @ 166.667 mls/hr 09/30/20 10:00 10/01/20 10:37 Sodium Chloride IV 166.667 mls/hr Q12H AMANDA Administration Insulin Glargine 35 units 10/01/20 08:00 10/01/20 08:50 Insulin Glargine 100 Units/Ml SUB-Q 35 units QAMDIAB AMANDA Administration Insulin Glargine 30 units 09/30/20 22:00 09/30/20 21:11 Insulin Glargine 100 Units/Ml SUB-Q 30 units QHS AMANDA Administration Insulin Human Lispro 6 unit 09/28/20 12:00 10/01/20 06:15 Insulin Lispro 100 Unit/Ml SUB-Q 6 unit Q6HR [facility] Administration Insulin Human Regular 0 units 09/23/20 12:00 10/01/20 06:15 Insulin Regular, Human 100 Units/1 Ml SUB-Q 3 units Q6H [facility] Administration Protocol Levothyroxine Sodium 125 mcg 09/18/20 06:00 10/01/20 06:14 Levothyroxine 125 Mcg Tab PO 125 mcg DAILY@0600 [facility] Administration Metoprolol Tartrate 2.5 mg 09/21/20 15:00 10/01/20 06:16 Metoprolol Tartrate 5 Mg/5 Ml Inj IV Not Given Q8HR [facility] Multi-Ingred Cream/Lotion/Oil/Oint 1 applic 09/20/20 19:02 Mineral Oil/Petrolatum, White Ophth Oint 3.5 Gm OU Q4HR PRN Dry Eye(s) Naloxone HCl 0.1 mg 09/15/20 18:36 Naloxone 0.4 Mg/1 Ml Inj IV Q2MIN PRN Res Rate </= 8 or 02 SAT < 92% Nitroglycerin 0.5 inch 09/22/20 06:00 10/01/20 06:17 Nitroglycerin 2% Oint 1 Gm TP Not Given BIDNTG [facility] Protocol Senna 8.8 mg 09/24/20 22:00 09/30/20 21:08 Sennosides Oral Liqd 8.8 Mg/5 Ml Oral Liqd PO 8.8 mg QHS AMANDA Administration Sertraline HCl 25 mg 09/17/20 12:00 10/01/20 10:37 Sertraline 25 Mg Tab PO 25 mg QDAY AMANDA Administration Simple Syrup 15 ml 09/22/20 08:06 Simple Syrup 15 Ml FEEDTUBE PRN PRN Hypoglycemia Simple Syrup 30 ml 09/22/20 08:06 Simple Syrup 15 Ml FEEDTUBE PRN PRN Hypoglycemia Sodium Bicarbonate 325 mg 09/22/20 08:06 Sodium Bicarbonate 325 Mg Tab FEEDTUBE PRN PRN For Clogged Feeding Tube Sodium Chloride 10 ml 09/16/20 10:00 10/01/20 10:37 Sodium Chloride 0.9% 10 Ml Flush Syringe IV 10 ml BID AMANDA Administration Sodium Chloride 10 ml 09/15/20 22:09 Sodium Chloride 0.9% 10 Ml Flush Syringe IV PRN PRN LINE FLUSH Sodium Chloride 5 ml 09/25/20 02:30 Sodium Chloride 0.9% 500 Ml Ivpb IV DIRECT PRN ARTERIAL GEOSPATIAL ANALYST Zinc Sulfate 220 mg 09/22/20 22:00 10/01/20 10:37 Zinc Sulfate 220 Mg Cap PO 220 mg BID AMANDA Administration Nutrition/Malnutrition Assess - Dietary Evaluation Nutrition/Malnutrition Findings: Nutrition Notes Start: 09/16/20 15:13 Freq: Status: Active Protocol: Document 09/30/20 16:55 (Rec: 09/30/20 17:01 [id number]) Nutrition Notes Initial or Follow up Reassessment Current Diagnosis Diabetes,Hypertension, Respiratory Failure Other Pertinent Diagnosis pneu, drug OD, COVID-19 Current Diet Vital AF 1.2 at 60 ml/hr Labs/Tests Na 149 Glu 253 Pertinent Medications Vit. C Vit. D Lantus Humalog Height 5 ft 6.14 in Weight 78.5 kg Sells Body Weight (kg) 59.40 BMI 27.8 Weight Status Appropriate Subjective/Other Information RD consulted for MST. Slight skin tear on sacral reported by RN today. Pt continues tolerating TF at goal rate. Burn Absent Trauma Absent Current % PO Negligible Minimum of two criteria No physical signs of malnutrition #1 Nutrition Diagnosis Inadequate oral intake Diagnosis Progress(for reassessment Continues documentation) Is patient on ventilator? Yes Is Patient Ambulatory and/or Out of Bed No REE-([place] Oneil-confined to bed) [phone] Calculation Used for Recommendations Brando Oneil Additional Notes Protein: (1.2-2g/kg) 94-157g Fluid: 1 ml/kcal Nutrition Intervention Change Diet Order: Continue TF Nutrition Support: Vital AF 1.2 at 60 ml/hr Flush 75 ml q4h or per MD Kcal 1,728 Protein (gm) 108 Fluid (mL) 1,168 Goal #1 Meet at least 75% of energy and protein needs via TF Goal #2 Sacral wound healing Anticipated Discharge Needs: Unable to determine at this time Follow-Up By: 10/03/20 Additional Comments F/u: BG and stable TF and sacral wound healing - Attestation Statement I have reviewed and agreed w/ Malnutrition eval & tx plan: Yes <SHANTHI CAVAZOS - Last Filed: 10/02/20 09:15> Assessment and Plan Assessment and plan: I saw and evaluated the patient. I agree with the findings and the plan of care as documented in the Nurse Practitioner's~note, with the following corrections and additions. Patient is a 54 y/o WF with bipolar disorder, hypothyroidism, hypertension, diabetes mellitus who presents to the emergency department via EMS after having being found on the floor who then tested positive for COVID and eventually required intubation since 09/20/20: Now remains intubated. off sedation this am. reviewed vitals, discussed with RN. Noted mouth bleeding - appears old no fresh blood. follow h/h. Pt on heparin drip for elevated d-dimer. may need to stop heparin drip if bleeding recurs. requiring 100% FiO2 to maintain o2 sat, very poor prognosis. Continue to follow clinically with supportive care. Hospitalist Physical - Constitutional Vitals: Temp Pulse Resp BP Pulse Ox 102.0 F H 106 H 18 86/60 0 L 10/01/20 19:00 10/01/20 18:15 10/01/20 18:15 10/01/20 18:15 10/01/20 21:51 HEART Score - HEART Score Troponin: Troponin T 0.501 ng/mL (0.00-0.029) H* D 09/22/20 10:22 Results - Labs CBC & Chem 7: 10/01/20 10:34 10/01/20 10:34 Labs: Laboratory Last Values WBC 13.4 K/mm3 (4.5-11.0) H 10/01/20 10:34 RBC 3.21 M/mm3 (3.65-5.03) L 10/01/20 10:34 Hgb 10.5 gm/dl (10.1-14.3) 10/01/20 10:34 Hct 31.6 % (30.3-42.9) 10/01/20 10:34 MCV 98 fl (79-97) H 10/01/20 10:34 MCH 33 pg (28-32) H 10/01/20 10:34 MCHC 33 % (30-34) 10/01/20 10:34 RDW 15.5 % (13.2-15.2) H 10/01/20 10:34 Plt Count 143 K/mm3 (140-440) 10/01/20 10:34 Lymph % (Auto) 7.3 % (13.4-35.0) L 09/16/20 04:47 [place] % (Auto) 6.6 % (0.0-7.3) 09/16/20 04:47 Eos % (Auto) 0.0 % (0.0-4.3) 09/16/20 04:47 Baso % (Auto) 0.4 % (0.0-1.8) 09/16/20 04:47 Lymph # (Auto) 0.8 K/mm3 (1.2-5.4) L 09/16/20 04:47 [place] # (Auto) 0.7 K/mm3 (0.0-0.8) 09/16/20 04:47 Eos # (Auto) 0.0 K/mm3 (0.0-0.4) 09/16/20 04:47 Baso # (Auto) 0.0 K/mm3 (0.0-0.1) 09/16/20 04:47 Seg Neutrophils % 85.7 % (40.0-70.0) H 09/16/20 04:47 Seg Neutrophils # 8.9 K/mm3 (1.8-7.7) H 09/16/20 04:47 PT 13.3 Sec. (12.2-14.9) 09/29/20 13:56 INR 0.95 (0.87-1.13) 09/29/20 13:56 APTT 38.2 Sec. (24.2-36.6) H 09/21/20 02:14 D-Dimer 1776.66 ng/mlDDU (0-234) H 09/30/20 07:19 Heparin Anti-Xa Level 0.75 U.I./ml (0.3-0.7) H 10/01/20 10:34 ABG pH 7.270 (7.320-7.450) L 10/01/20 03:09 POC ABG pCO2 81.8 mmHg (32.0-48.0) H 10/01/20 03:09 ABG pCO2 74.6 mm Hg 09/29/20 02:50 POC ABG pO2 50.9 mmHg (83-108) L 10/01/20 03:09 ABG pO2 63.6 mm Hg (80.0-90.0) L 09/29/20 02:50 POC ABG HCO3 36.7 10/01/20 03:09 ABG HCO3 38.9 mmol/L (20.0-26.0) H 09/29/20 02:50 ABG O2 Saturation 83.5 (0-100) 10/01/20 03:09 ABG O2 Content 15.1 (0.0-44) 09/29/20 02:50 POC ABG Base Excess 7.4 10/01/20 03:09 ABG Base Excess 10.4 mmol/L (-2.0-3.0) H 09/29/20 02:50 ABG Hemoglobin 11.5 (12.0-17.5) L 10/01/20 03:09 ABG Oxyhemoglobin 82.7 (94-98) L 10/01/20 03:09 ABG Carboxyhemoglobin 1.4 % (0.0-5.0) 09/29/20 02:50 ABG Methemoglobin 0.3 (0.0-1.5) 10/01/20 03:09 ABG Sodium 145.5 mmol/L (136.0-145.0) H 10/01/20 03:09 ABG Potassium 4.5 mmol/L (3.40-4.50) 10/01/20 03:09 ABG Chloride 106.0 mmol/L (98-107) 10/01/20 03:09 ABG Glucose 196 mg/dL (65-95) H 10/01/20 03:09 VBG pH 7.368 (7.320-7.420) 09/15/20 18:46 Oxyhemoglobin 90.1 % (95.0-99.0) L 09/29/20 02:50 Carboxyhemoglobin 0.6 (0.5-1.5) 10/01/20 03:09 FiO2 100 % 09/29/20 02:50 FiO2 % 100.0 10/01/20 03:09 Sodium 148 mmol/L (137-145) H 10/01/20 10:34 Potassium 4.7 mmol/L (3.6-5.0) 10/01/20 10:34 Chloride 106.4 mmol/L (98-107) 10/01/20 10:34 Carbon Dioxide 36 mmol/L (22-30) H 10/01/20 10:34 Anion Gap 10 mmol/L 10/01/20 10:34 BUN 63 mg/dL (7-17) H 10/01/20 10:34 Creatinine 1.1 mg/dL (0.6-1.2) D 10/01/20 10:34 Estimated GFR 51 ml/min 10/01/20 10:34 BUN/Creatinine Ratio 57 % 10/01/20 10:34 Glucose 106 mg/dL (65-100) H 10/01/20 10:34 POC Glucose 127 mg/dL (70-105) H 10/01/20 17:32 Lactic Acid 2.50 mmol/L (0.7-2.0) H* 09/26/20 13:17 Calcium 7.5 mg/dL (8.4-10.2) L 10/01/20 10:34 Phosphorus 3.10 mg/dL (2.5-4.5) D 09/30/20 07:19 Magnesium 2.30 mg/dL (1.7-2.3) 09/30/20 07:19 Ferritin 770.1 ng/mL (10.0-200.0) H 09/30/20 07:19 Total Bilirubin 0.40 mg/dL (0.1-1.2) 09/30/20 07:19 AST 44 units/L (5-40) H 09/30/20 07:19 ALT 41 units/L (7-56) 09/30/20 07:19 Alkaline Phosphatase 135 units/L (35-129) H 09/30/20 07:19 Ammonia 23.0 umol/L (25-60) L 09/15/20 18:46 Lactate Dehydrogenase 560 units/L (91-180) H 09/30/20 07:19 Total Creatine Kinase 1159 units/L (30-135) H 09/22/20 10:22 CK-MB (CK-2) 14.4 ng/mL (0.0-4.0) H 09/22/20 10:22 CK-MB (CK-2) Rel Index 1.2 (0-4) 09/22/20 10:22 Troponin T 0.501 ng/mL (0.00-0.029) H* D 09/22/20 10:22 C-Reactive Protein 0.40 mg/dL (0.00-1.30) 09/30/20 07:19 Total Protein 5.1 g/dL (6.3-8.2) L 09/30/20 07:19 Albumin 2.5 g/dL (3.9-5) L 09/30/20 07:19 Albumin/Globulin Ratio 1.0 % 09/30/20 07:19 Triglycerides 156 mg/dL (2-149) H 09/21/20 00:46 Cholesterol 139 mg/dL (50-199) 09/21/20 00:46 LDL Cholesterol Direct 85 mg/dL (50-130) 09/21/20 00:46 HDL Cholesterol 22 mg/dL (40-59) L 09/21/20 00:46 Cholesterol/HDL Ratio 6.31 % 09/21/20 00:46 Procalcitonin 0.22 ng/mL (<0.15) 09/30/20 07:19 TSH 34.670 mlU/mL (0.270-4.200) H 09/15/20 18:46 Free T4 0.10 ng/dL (0.76-1.46) L 09/15/20 19:43 Arterial Blood Glucose 196 mg/dL (65-95) H 10/01/20 03:09 Arterial Blood Ionized Calcium 4.5 mg/dL (4.6-5.3) L 10/01/20 03:09 Urine Color Yellow (Yellow) 09/29/20 21:00 Urine Turbidity Slightly-cloudy (Clear) 09/29/20 21:00 Urine pH 5.0 (5.0-7.0) 09/29/20 21:00 Ur Specific [place] 1.025 (1.003-1.030) 09/29/20 21:00 Urine Protein 30 mg/dl mg/dL (Negative) 09/29/20 21:00 Urine Glucose (UA) 150 mg/dL (Negative) 09/29/20 21:00 Urine Ketones Neg mg/dL (Negative) 09/29/20 21:00 Urine Blood Sm (Negative) 09/29/20 21:00 Urine Nitrite Neg (Negative) 09/29/20 21:00 Urine Bilirubin Neg (Negative) 09/29/20 21:00 Urine Urobilinogen 2.0 mg/dL (<2.0) 09/29/20 21:00 Ur Leukocyte Esterase Lg (Negative) 09/29/20 21:00 Urine WBC (Auto) 28.0 /HPF (0.0-6.0) H 09/29/20 21:00 Urine RBC (Auto) 20.0 /HPF (0.0-6.0) 09/29/20 21:00 U Epithel Cells (Auto) 1.0 /HPF (0-13.0) 09/29/20 21:00 Urine Bacteria (Auto) 2+ /HPF (Negative) 09/29/20 21:00 Urine WBC Clumps 2+ /HPF 09/15/20 Unknown Urine Mucus Few /HPF 09/29/20 21:00 Urine Yeast (Budding) 3+ /HPF 09/29/20 21:00 Vancomycin Trough 20.6 ug/mL (5.0-20.0) H 10/01/20 10:34 Salicylates < 0.3 mg/dL (2.8-20.0) L 09/15/20 18:46 Urine Opiates Screen Presumptive negative 09/15/20 Unknown Urine Methadone Screen Presumptive negative 09/15/20 Unknown Acetaminophen 5.0 ug/mL (10.0-30.0) L 09/16/20 21:38 Ur Barbiturates Screen Presumptive negative 09/15/20 Unknown Ur Phencyclidine Scrn Presumptive negative 09/15/20 Unknown Ur Amphetamines Screen Presumptive negative 09/15/20 Unknown U Benzodiazepines Scrn Presumptive negative 09/15/20 Unknown Urine Cocaine Screen Presumptive negative 09/15/20 Unknown U Marijuana (THC) Screen Presumptive negative 09/15/20 Unknown Drugs of Abuse Note Disclamer 09/15/20 Unknown Plasma/Serum Alcohol < 0.01 % (0-0.07) 09/15/20 18:46 Coronavirus (PCR) Positive (Negative) A 09/16/20 08:00 Microbiology: Microbiology 09/27/20 16:30 Tracheal Aspirate Sputum Culture - Final Staphylococcus Aureus 09/29/20 13:56 Peripheral/Venous Blood Culture - Preliminary NO GROWTH AFTER 48 HOURS 09/29/20 13:56 Peripheral/Venous Blood Culture - Preliminary NO GROWTH AFTER 48 HOURS 09/29/20 21:00 Urine,Catheterized - Straight Catheter Urine Culture - Preliminary Laura/IV: Voiding Method External Female Catheter Nutrition/Malnutrition Assess - Dietary Evaluation Nutrition/Malnutrition Findings: Nutrition Notes Start: 09/16/20 15:13 Freq: Status: Discharge Protocol: Document 09/30/20 16:55 EB (Rec: 09/30/20 17:01 EB [id number]) Nutrition Notes Initial or Follow up Reassessment Current Diagnosis Diabetes,Hypertension, Respiratory Failure Other Pertinent Diagnosis pneu, drug OD, COVID-19 Current Diet Vital AF 1.2 at 60 ml/hr Labs/Tests Na 149 Glu 253 Pertinent Medications Vit. C Vit. D Lantus Humalog Height 5 ft 6.14 in Weight 78.5 kg Sells Body Weight (kg) 59.40 BMI 27.8 Weight Status Appropriate Subjective/Other Information RD consulted for MST. Slight skin tear on sacral reported by RN today. Pt continues tolerating TF at goal rate. Burn Absent Trauma Absent Current % PO Negligible Minimum of two criteria No physical signs of malnutrition #1 Nutrition Diagnosis Inadequate oral intake Diagnosis Progress(for reassessment Continues documentation) Is patient on ventilator? Yes Is Patient Ambulatory and/or Out of Bed No REE-([place]-St. Jeor-confined to bed) 7417.852 Calculation Used for Recommendations [place]-St Jeor Additional Notes Protein: (1.2-2g/kg) 94-157g Fluid: 1 ml/kcal Nutrition Intervention Change Diet Order: Continue TF Nutrition Support: Vital AF 1.2 at 60 ml/hr Flush 75 ml q4h or per MD Kcal 1,728 Protein (gm) 108 Fluid (mL) 1,168 Goal #1 Meet at least 75% of energy and protein needs via TF Goal #2 Sacral wound healing Anticipated Discharge Needs: Unable to determine at this time Follow-Up By: 10/03/20 Additional Comments F/u: BG and stable TF and sacral wound healing
[2020-10-01 11:08] LABS: Calcium 7.5 mg/dL (8.4-10.2)
--- NOTE | 2020-10-01 12:38 | Progress Note ---
Assessment and Plan Cultures: Blood culture no growth COVID-19 PCR positive 09/27/2020 tracheal aspirate culture: Moderate growth of Staph aureus 09/29/2020 blood culture: No growth 09/29/2020 urine culture: In process A/P: 54-year-old female past medical history bipolar, hypothyroidism, hypertension, diabetes now with: #New onset sepsis: Worsening leukocytosis, fever. DVT scan negative. Chest x- ray with stable bilateral pneumonia. #Acute hypoxic respiratory failure: Remains on the vent with very high requirements, 100% FiO2. #Critical COVID-19 pneumonia: PCR positive. #Drug overdose: With trazodone Recs: -continue cefepime, vancomycin, D3 -f/u final cultures -Completed Remdesivir, steroids -poor prognosis Hermann Ochoa MD, FACP [facility] O: [phone] F: [phone] Subjective Date of service: 10/01/20 Principal diagnosis: Ac encephalopathy; CAP; Sepsis; COVID-19 infxn; Ac hypoxemic resp failure Interval history: Febrile again, T-max of 102.2 F last night. Remains on the vent with very high requirements, 100% FiO2. Objective - Exam Narrative Exam: Physical Exam (reviewed in chart to minimize risk of transmission) Constitutional: deferred Head, Ears, Nose: deferred Eyes: deferred Neck: deferred Oral: deferred Cardiovascular: deferred Respiratory: deferred GI: deferred Musculoskeletal: deferred Skin: deferred Hem/Lymphatic: deferred Psych: deferred Neurological: deferred - Constitutional Vitals: Vital Signs Temp Pulse Resp BP Pulse Ox 101.7 F H 110 H 18 94/61 93 10/01/20 09:10 10/01/20 12:15 10/01/20 12:15 10/01/20 12:15 10/01/20 12:00 Temperature -Last 24 Hours Temperature 101.7 F Temperature 102.0 F Temperature 102.2 F Temperature 101.1 F - Labs CBC & Chem 7: 10/01/20 10:34 10/01/20 10:34 Labs: Abnormal lab results 09/30/20 09/30/20 09/30/20 Range/Units 16:24 17:47 23:37 WBC (4.5-11.0) K/mm3 RBC (3.65-5.03) M/mm3 MCV (79-97) fl MCH (28-32) pg RDW (13.2-15.2) % Heparin Anti-Xa Level 1.04 H (0.3-0.7) U.I./ml ABG pH (7.320-7.450) POC ABG pCO2 (32.0-48.0) mmHg POC ABG pO2 (83-108) mmHg ABG Hemoglobin (12.0-17.5) ABG Oxyhemoglobin (94-98) ABG Sodium (136.0-145.0) mmol/L ABG Glucose (65-95) mg/dL Sodium (137-145) mmol/L Carbon Dioxide (22-30) mmol/L BUN (7-17) mg/dL Glucose (65-100) mg/dL POC Glucose 218 H 194 H (70-105) mg/dL Calcium (8.4-10.2) mg/dL Arterial Blood Glucose (65-95) mg/dL Arterial Blood Ionized Calcium (4.6-5.3) mg/dL Vancomycin Trough (5.0-20.0) ug/mL 10/01/20 10/01/20 10/01/20 Range/Units 02:18 03:09 05:52 WBC (4.5-11.0) K/mm3 RBC (3.65-5.03) M/mm3 MCV (79-97) fl MCH (28-32) pg RDW (13.2-15.2) % Heparin Anti-Xa Level 0.78 H (0.3-0.7) U.I./ml ABG pH 7.270 L (7.320-7.450) POC ABG pCO2 81.8 H (32.0-48.0) mmHg POC ABG pO2 50.9 L (83-108) mmHg ABG Hemoglobin 11.5 L (12.0-17.5) ABG Oxyhemoglobin 82.7 L (94-98) ABG Sodium 145.5 H (136.0-145.0) mmol/L ABG Glucose 196 H (65-95) mg/dL Sodium (137-145) mmol/L Carbon Dioxide (22-30) mmol/L BUN (7-17) mg/dL Glucose (65-100) mg/dL POC Glucose 163 H (70-105) mg/dL Calcium (8.4-10.2) mg/dL Arterial Blood Glucose 196 H (65-95) mg/dL Arterial Blood Ionized Calcium 4.5 L (4.6-5.3) mg/dL Vancomycin Trough (5.0-20.0) ug/mL 10/01/20 10/01/20 10/01/20 Range/Units 10:34 10:34 10:34 WBC 13.4 H (4.5-11.0) K/mm3 RBC 3.21 L (3.65-5.03) M/mm3 MCV 98 H (79-97) fl MCH 33 H (28-32) pg RDW 15.5 H (13.2-15.2) % Heparin Anti-Xa Level (0.3-0.7) U.I./ml ABG pH (7.320-7.450) POC ABG pCO2 (32.0-48.0) mmHg POC ABG pO2 (83-108) mmHg ABG Hemoglobin (12.0-17.5) ABG Oxyhemoglobin (94-98) ABG Sodium (136.0-145.0) mmol/L ABG Glucose (65-95) mg/dL Sodium 148 H (137-145) mmol/L Carbon Dioxide 36 H (22-30) mmol/L BUN 63 H (7-17) mg/dL Glucose 106 H (65-100) mg/dL POC Glucose (70-105) mg/dL Calcium 7.5 L (8.4-10.2) mg/dL Arterial Blood Glucose (65-95) mg/dL Arterial Blood Ionized Calcium (4.6-5.3) mg/dL Vancomycin Trough 20.6 H (5.0-20.0) ug/mL 10/01/20 Range/Units 12:19 WBC (4.5-11.0) K/mm3 RBC (3.65-5.03) M/mm3 MCV (79-97) fl MCH (28-32) pg RDW (13.2-15.2) % Heparin Anti-Xa Level (0.3-0.7) U.I./ml ABG pH (7.320-7.450) POC ABG pCO2 (32.0-48.0) mmHg POC ABG pO2 (83-108) mmHg ABG Hemoglobin (12.0-17.5) ABG Oxyhemoglobin (94-98) ABG Sodium (136.0-145.0) mmol/L ABG Glucose (65-95) mg/dL Sodium (137-145) mmol/L Carbon Dioxide (22-30) mmol/L BUN (7-17) mg/dL Glucose (65-100) mg/dL POC Glucose 118 H (70-105) mg/dL Calcium (8.4-10.2) mg/dL Arterial Blood Glucose (65-95) mg/dL Arterial Blood Ionized Calcium (4.6-5.3) mg/dL Vancomycin Trough (5.0-20.0) ug/mL
--- NOTE | 2020-10-01 13:00 | Progress Note ---
Assessment and Plan Acute toxic metabolic encephalopathy Severe sepsis Community acquired pneumonia coronavirus-19 infection Acute hypoxemic respiratory failure Hyponatremia at presentation Diabetes, poorly controlled Lactic acidosis Urinary tract infection Tobacco use disorder (care plan discussed at length with patients eldest son today and his questions were answered) - hold Flomax & Doxazosin re: hypotension - increased peep to 20 cm H2O - continue IV Heparin re: VTE - continue to wean supplemental oxygen for target O2 sat's > 92% acutely - continue care as below otherwise; - continue Daily SAT and SBT assessment as tolerated - VAP bundle addressed - continue lung protective strategies - continue bronchodilators with pulmonary hygiene per RT - wean per pulmonary driven protocols otherwise - continue accuchecks with glycemic control per SSI (While critically ill target blood glucose of 140-180 mg/dL; avoid hypoglycemia) - sedation prn for target RASS -1 to -2 - avoid nephrotoxins, renally dose all medications - continue to avoid benzodiazepine's, reduce the possibility of delirium - complete anti-infective's per ID rec's - prn analgesia per CPOT score - Maintenance of sleep-wake cycle, avoid delirium - continue enteral nutritional support at goal rate as tolerated - G.I. & VTE prophylaxis - PT/OT/ROM exercises - continue mobility protocols for pressure ulcer prophylaxis - Monitor hemodynamics closely - continue other care per attending / other consultants - discharge planning ongoing concurrently COVID SPECIFIC INTERVENTIONS - continue contact and airborne isolation - Remdesivir as per ID/Pulmonary developed protocols (ordered) - continue systemic steroids for severe COVID-19 infection - follow repeat COVID tests results - zinc and vitamin C supplementation - Monitor inflammatory markers per facility protocol - ferritin, D-dimer, CRP - therapeutic anticoagulation per system Protocol based on d-dimer and clinical considerations (not indicated) .... Re-evaluate in am & prn CONDITION: CRITICAL PROGNOSIS: GUARDED CODE STATUS: FULL CODE The high probability of a clinically significant, sudden or life-threatening deterioration of the [respiratory, cardiovascular & neurologic] system(s) required my full and direct attention, intervention and personal management. The aggregate critical care time was [32] minutes without overlap. Time includes spent on; [x] Data Review and interpretation [x] Patient assessment and monitoring of vital signs [x] Documentation [x] Medication orders and management Subjective Date of service: 10/01/20 Principal diagnosis: Ac encephalopathy; CAP; Sepsis; COVID-19 infxn; Ac hypoxemic resp failure Interval history: Patient is seen today for: Acute toxic metabolic encephalopathy; CAP; Severe sepsis; COVID-19 infection; Acute hypoxemic respiratory failure UTI; DM II Seen and examined at bedside; 24hour events reviewed; nursing and respiratory care staff consulted; no adverse overnight events reported to me; resting in bed; remains on MVS; AMS is persistent; Objective Vital Signs - 12hr 10/01/20 10/01/20 10/01/20 01:00 01:15 01:30 Temperature Pulse Rate 113 H 114 H 114 H Pulse Rate [ From Monitor] Respiratory 18 19 19 Rate Blood Pressure 106/67 100/66 100/63 O2 Sat by Pulse 87 84 Oximetry 10/01/20 10/01/20 10/01/20 01:45 02:00 02:15 Temperature Pulse Rate 114 H 117 H 115 H Pulse Rate [ From Monitor] Respiratory 18 19 18 Rate Blood Pressure 102/61 107/69 100/69 O2 Sat by Pulse 85 80 L 88 Oximetry 10/01/20 10/01/20 10/01/20 02:30 02:45 03:00 Temperature Pulse Rate 114 H 112 H 113 H Pulse Rate [ From Monitor] Respiratory 18 18 18 Rate Blood Pressure 103/67 103/67 93/63 O2 Sat by Pulse 90 88 89 Oximetry 10/01/20 10/01/20 10/01/20 03:15 03:18 03:30 Temperature 102.0 F H Pulse Rate 111 H 108 H Pulse Rate [ From Monitor] Respiratory 18 18 Rate Blood Pressure 103/62 95/63 O2 Sat by Pulse 88 89 Oximetry 10/01/20 10/01/20 10/01/20 03:45 04:00 04:15 Temperature Pulse Rate 109 H 108 H 109 H Pulse Rate [ 105 H From Monitor] Respiratory 18 18 18 Rate Blood Pressure 97/65 97/65 99/63 O2 Sat by Pulse 91 89 Oximetry 10/01/20 10/01/20 10/01/20 04:30 04:45 05:00 Temperature Pulse Rate 108 H 109 H 109 H Pulse Rate [ From Monitor] Respiratory 19 18 18 Rate Blood Pressure 93/61 96/66 95/63 O2 Sat by Pulse 89 89 Oximetry 10/01/20 10/01/20 10/01/20 05:15 05:30 05:45 Temperature Pulse Rate 109 H 108 H 108 H Pulse Rate [ From Monitor] Respiratory 18 18 18 Rate Blood Pressure 102/66 103/64 103/66 O2 Sat by Pulse 89 90 90 Oximetry 10/01/20 10/01/20 10/01/20 06:00 06:15 06:16 Temperature Pulse Rate 107 H 108 H 107 H Pulse Rate [ From Monitor] Respiratory 18 17 Rate Blood Pressure 99/66 97/60 97/60 O2 Sat by Pulse 90 Oximetry 10/01/20 10/01/20 10/01/20 06:17 06:30 06:45 Temperature Pulse Rate 111 H 110 H 109 H Pulse Rate [ From Monitor] Respiratory 19 18 Rate Blood Pressure 97/60 98/59 107/62 O2 Sat by Pulse 89 90 Oximetry 10/01/20 10/01/20 10/01/20 07:00 07:15 07:30 Temperature Pulse Rate 108 H 109 H 109 H Pulse Rate [ From Monitor] Respiratory 17 18 18 Rate Blood Pressure 99/63 105/63 106/64 O2 Sat by Pulse 87 Oximetry 10/01/20 10/01/20 10/01/20 07:45 08:00 08:15 Temperature Pulse Rate 112 H 110 H 111 H Pulse Rate [ From Monitor] Respiratory 18 18 18 Rate Blood Pressure 101/64 102/60 99/63 O2 Sat by Pulse 89 90 Oximetry 10/01/20 10/01/20 10/01/20 08:30 08:45 09:00 Temperature Pulse Rate 111 H 113 H 108 H Pulse Rate [ From Monitor] Respiratory 19 18 18 Rate Blood Pressure 102/63 91/64 86/62 O2 Sat by Pulse 90 89 Oximetry 10/01/20 10/01/20 10/01/20 09:10 09:15 09:30 Temperature 101.7 F H Pulse Rate 109 H 113 H Pulse Rate [ From Monitor] Respiratory 18 18 Rate Blood Pressure 103/64 103/55 O2 Sat by Pulse 91 90 Oximetry 10/01/20 10/01/20 10/01/20 09:45 10:00 10:15 Temperature Pulse Rate 112 H 112 H 114 H Pulse Rate [ From Monitor] Respiratory 18 18 18 Rate Blood Pressure 98/57 99/55 94/55 O2 Sat by Pulse 90 91 91 Oximetry 10/01/20 10/01/20 10/01/20 10:31 10:45 11:00 Temperature Pulse Rate 114 H 114 H 116 H Pulse Rate [ From Monitor] Respiratory 17 19 15 Rate Blood Pressure 110/50 94/58 106/53 O2 Sat by Pulse 92 89 Oximetry 10/01/20 10/01/20 10/01/20 11:15 11:30 11:45 Temperature Pulse Rate 114 H 113 H 112 H Pulse Rate [ From Monitor] Respiratory 20 20 18 Rate Blood Pressure 105/68 90/66 98/66 O2 Sat by Pulse 86 93 Oximetry 10/01/20 10/01/20 12:00 12:15 Temperature Pulse Rate 110 H 110 H Pulse Rate [ From Monitor] Respiratory 17 18 Rate Blood Pressure 98/66 94/61 O2 Sat by Pulse 93 Oximetry Constitutional: appears uncomfortable, other (middle aged female with mildly increased respiratory effort at rest on MVS) Eyes: non-icteric ENT: oropharynx moist, other (ETT 26 cm JOSHUA) Neck: supple, no lymphadenopathy Effort: mildly labored Ascultation: Bilateral: diminished breath sounds, rhonchi Percussion: Bilateral: not dull Cardiovascular: regular rate and rhythm Gastrointestinal: normoactive bowel sounds, soft, non-tender, non-distended ( protuberant) Integumentary: normal Extremities: no cyanosis, no edema, pink and warm, pulses normal Neurologic: non-focal exam (grossly), pupils equal and round, motor strength normal and, unable to assess, other (sedated) Psychiatric: other (lethargic) CBC and BMP: 10/01/20 10:34 10/01/20 10:34 ABG, PT/INR, D-dimer: ABG ABG pH 7.270 (7.320-7.450) L 10/01/20 03:09 POC ABG pCO2 81.8 mmHg (32.0-48.0) H 10/01/20 03:09 ABG pCO2 74.6 mm Hg 09/29/20 02:50 POC ABG pO2 50.9 mmHg (83-108) L 10/01/20 03:09 ABG pO2 63.6 mm Hg (80.0-90.0) L 09/29/20 02:50 POC ABG HCO3 36.7 10/01/20 03:09 ABG O2 Saturation 83.5 (0-100) 10/01/20 03:09 PT/INR, D-dimer PT 13.3 Sec. (12.2-14.9) 09/29/20 13:56 INR 0.95 (0.87-1.13) 09/29/20 13:56 D-Dimer 1776.66 ng/mlDDU (0-234) H 09/30/20 07:19 Abnormal lab findings: Abnormal Labs 09/15/20 09/15/20 09/15/20 18:46 18:46 18:46 WBC RBC Hgb 14.4 H MCV MCH MCHC RDW Lymph % (Auto) Lymph # (Auto) Seg Neutrophils % Seg Neutrophils # PT INR APTT D-Dimer Heparin Anti-Xa Level ABG pH POC ABG pCO2 POC ABG pO2 ABG pO2 ABG HCO3 ABG O2 Saturation ABG Base Excess ABG Hemoglobin ABG Oxyhemoglobin ABG Sodium ABG Potassium ABG Chloride ABG Glucose Oxyhemoglobin Carboxyhemoglobin Sodium 128 L Potassium 3.2 L Chloride 89.3 L Carbon Dioxide BUN Creatinine Glucose 388 H POC Glucose Lactic Acid Calcium 8.2 L Phosphorus Ferritin AST 69 H Alkaline Phosphatase Ammonia Lactate Dehydrogenase Total Creatine Kinase CK-MB (CK-2) Troponin T C-Reactive Protein Total Protein Albumin 3.6 L Triglycerides HDL Cholesterol TSH 34.670 H Free T4 Arterial Blood Glucose Arterial Blood Ionized Calcium Urine WBC (Auto) Vancomycin Trough Salicylates Acetaminophen Coronavirus (PCR) 09/15/20 09/15/20 09/15/20 18:46 18:46 18:46 WBC RBC Hgb MCV MCH MCHC RDW Lymph % (Auto) Lymph # (Auto) Seg Neutrophils % Seg Neutrophils # PT INR APTT D-Dimer Heparin Anti-Xa Level ABG pH POC ABG pCO2 POC ABG pO2 ABG pO2 ABG HCO3 ABG O2 Saturation ABG Base Excess ABG Hemoglobin ABG Oxyhemoglobin ABG Sodium ABG Potassium ABG Chloride ABG Glucose Oxyhemoglobin Carboxyhemoglobin Sodium Potassium Chloride Carbon Dioxide BUN Creatinine Glucose POC Glucose Lactic Acid Calcium Phosphorus Ferritin AST Alkaline Phosphatase Ammonia 23.0 L Lactate Dehydrogenase Total Creatine Kinase CK-MB (CK-2) Troponin T C-Reactive Protein Total Protein Albumin Triglycerides HDL Cholesterol TSH Free T4 Arterial Blood Glucose Arterial Blood Ionized Calcium Urine WBC (Auto) Vancomycin Trough Salicylates < 0.3 L Acetaminophen 9.1 L Coronavirus (PCR) 09/15/20 09/15/20 09/15/20 19:38 19:40 19:43 WBC RBC Hgb MCV MCH MCHC RDW Lymph % (Auto) Lymph # (Auto) Seg Neutrophils % Seg Neutrophils # PT INR APTT D-Dimer Heparin Anti-Xa Level ABG pH POC ABG pCO2 POC ABG pO2 ABG pO2 ABG HCO3 ABG O2 Saturation ABG Base Excess ABG Hemoglobin ABG Oxyhemoglobin ABG Sodium ABG Potassium ABG Chloride ABG Glucose Oxyhemoglobin Carboxyhemoglobin Sodium Potassium Chloride Carbon Dioxide BUN Creatinine Glucose POC Glucose 398 H Lactic Acid 2.70 H* Calcium Phosphorus Ferritin AST Alkaline Phosphatase Ammonia Lactate Dehydrogenase Total Creatine Kinase CK-MB (CK-2) Troponin T C-Reactive Protein Total Protein Albumin Triglycerides HDL Cholesterol TSH Free T4 0.10 L Arterial Blood Glucose Arterial Blood Ionized Calcium Urine WBC (Auto) Vancomycin Trough Salicylates Acetaminophen Coronavirus (PCR) 09/15/20 09/15/20 09/16/20 20:02 Unknown 04:47 WBC RBC Hgb 14.8 H MCV MCH 33 H MCHC 36 H RDW Lymph % (Auto) 7.3 L Lymph # (Auto) 0.8 L Seg Neutrophils % 85.7 H Seg Neutrophils # 8.9 H PT INR APTT D-Dimer Heparin Anti-Xa Level ABG pH POC ABG pCO2 31.1 L POC ABG pO2 46.9 L ABG pO2 ABG HCO3 ABG O2 Saturation ABG Base Excess ABG Hemoglobin ABG Oxyhemoglobin 82.8 L ABG Sodium 129.8 L ABG Potassium 3.1 L ABG Chloride ABG Glucose 374 H Oxyhemoglobin Carboxyhemoglobin Sodium Potassium Chloride Carbon Dioxide BUN Creatinine Glucose POC Glucose Lactic Acid Calcium Phosphorus Ferritin AST Alkaline Phosphatase Ammonia Lactate Dehydrogenase Total Creatine Kinase CK-MB (CK-2) Troponin T C-Reactive Protein Total Protein Albumin Triglycerides HDL Cholesterol TSH Free T4 Arterial Blood Glucose 374 H Arterial Blood Ionized Calcium Urine WBC (Auto) > 182.0 H Vancomycin Trough Salicylates Acetaminophen Coronavirus (PCR) 09/16/20 09/16/20 09/16/20 04:47 07:20 08:00 WBC RBC Hgb MCV MCH MCHC RDW Lymph % (Auto) Lymph # (Auto) Seg Neutrophils % Seg Neutrophils # PT INR APTT D-Dimer Heparin Anti-Xa Level ABG pH POC ABG pCO2 POC ABG pO2 ABG pO2 ABG HCO3 ABG O2 Saturation ABG Base Excess ABG Hemoglobin ABG Oxyhemoglobin ABG Sodium ABG Potassium ABG Chloride ABG Glucose Oxyhemoglobin Carboxyhemoglobin Sodium 135 L D Potassium Chloride 94.1 L Carbon Dioxide BUN Creatinine Glucose 418 H POC Glucose 403 H Lactic Acid Calcium 8.3 L Phosphorus Ferritin AST Alkaline Phosphatase Ammonia Lactate Dehydrogenase Total Creatine Kinase CK-MB (CK-2) Troponin T C-Reactive Protein Total Protein Albumin Triglycerides HDL Cholesterol TSH Free T4 Arterial Blood Glucose Arterial Blood Ionized Calcium Urine WBC (Auto) Vancomycin Trough Salicylates Acetaminophen Coronavirus (PCR) Positive A 09/16/20 09/16/20 09/16/20 11:43 16:17 21:38 WBC RBC Hgb MCV MCH MCHC RDW Lymph % (Auto) Lymph # (Auto) Seg Neutrophils % Seg Neutrophils # PT INR APTT D-Dimer 702.65 H Heparin Anti-Xa Level ABG pH POC ABG pCO2 POC ABG pO2 ABG pO2 ABG HCO3 ABG O2 Saturation ABG Base Excess ABG Hemoglobin ABG Oxyhemoglobin ABG Sodium ABG Potassium ABG Chloride ABG Glucose Oxyhemoglobin Carboxyhemoglobin Sodium Potassium Chloride Carbon Dioxide BUN Creatinine Glucose POC Glucose 417 H 353 H Lactic Acid Calcium Phosphorus Ferritin AST Alkaline Phosphatase Ammonia Lactate Dehydrogenase Total Creatine Kinase CK-MB (CK-2) Troponin T C-Reactive Protein Total Protein Albumin Triglycerides HDL Cholesterol TSH Free T4 Arterial Blood Glucose Arterial Blood Ionized Calcium Urine WBC (Auto) Vancomycin Trough Salicylates Acetaminophen Coronavirus (PCR) 09/16/20 09/16/20 09/16/20 21:38 21:38 21:38 WBC RBC Hgb MCV MCH MCHC RDW Lymph % (Auto) Lymph # (Auto) Seg Neutrophils % Seg Neutrophils # PT INR APTT D-Dimer Heparin Anti-Xa Level ABG pH POC ABG pCO2 POC ABG pO2 ABG pO2 ABG HCO3 ABG O2 Saturation ABG Base Excess ABG Hemoglobin ABG Oxyhemoglobin ABG Sodium ABG Potassium ABG Chloride ABG Glucose Oxyhemoglobin Carboxyhemoglobin Sodium Potassium Chloride Carbon Dioxide BUN Creatinine Glucose POC Glucose Lactic Acid Calcium Phosphorus Ferritin 1089.0 H AST Alkaline Phosphatase Ammonia Lactate Dehydrogenase 722 H Total Creatine Kinase CK-MB (CK-2) Troponin T C-Reactive Protein 6.80 H Total Protein Albumin Triglycerides HDL Cholesterol TSH Free T4 Arterial Blood Glucose Arterial Blood Ionized Calcium Urine WBC (Auto) Vancomycin Trough Salicylates Acetaminophen 5.0 L Coronavirus (PCR) 09/16/20 09/16/20 09/17/20 21:38 22:24 04:59 WBC RBC Hgb MCV MCH MCHC RDW Lymph % (Auto) Lymph # (Auto) Seg Neutrophils % Seg Neutrophils # PT INR APTT D-Dimer Heparin Anti-Xa Level ABG pH POC ABG pCO2 POC ABG pO2 ABG pO2 ABG HCO3 ABG O2 Saturation ABG Base Excess ABG Hemoglobin ABG Oxyhemoglobin ABG Sodium ABG Potassium ABG Chloride ABG Glucose Oxyhemoglobin Carboxyhemoglobin Sodium 134 L 135 L Potassium 3.5 L 3.0 L Chloride 95.1 L 97.2 L Carbon Dioxide BUN Creatinine Glucose 288 H 149 H POC Glucose 307 H Lactic Acid Calcium 8.2 L Phosphorus Ferritin AST 43 H 49 H Alkaline Phosphatase Ammonia Lactate Dehydrogenase Total Creatine Kinase CK-MB (CK-2) Troponin T C-Reactive Protein Total Protein Albumin 3.7 L 3.3 L Triglycerides HDL Cholesterol TSH Free T4 Arterial Blood Glucose Arterial Blood Ionized Calcium Urine WBC (Auto) Vancomycin Trough Salicylates Acetaminophen Coronavirus (PCR) 09/17/20 09/17/20 09/17/20 12:25 16:57 21:30 WBC RBC Hgb MCV MCH MCHC RDW Lymph % (Auto) Lymph # (Auto) Seg Neutrophils % Seg Neutrophils # PT INR APTT D-Dimer Heparin Anti-Xa Level ABG pH POC ABG pCO2 POC ABG pO2 ABG pO2 ABG HCO3 ABG O2 Saturation ABG Base Excess ABG Hemoglobin ABG Oxyhemoglobin ABG Sodium ABG Potassium ABG Chloride ABG Glucose Oxyhemoglobin Carboxyhemoglobin Sodium Potassium Chloride Carbon Dioxide BUN Creatinine Glucose POC Glucose 199 H 313 H 304 H Lactic Acid Calcium Phosphorus Ferritin AST Alkaline Phosphatase Ammonia Lactate Dehydrogenase Total Creatine Kinase CK-MB (CK-2) Troponin T C-Reactive Protein Total Protein Albumin Triglycerides HDL Cholesterol TSH Free T4 Arterial Blood Glucose Arterial Blood Ionized Calcium Urine WBC (Auto) Vancomycin Trough Salicylates Acetaminophen Coronavirus (PCR) 09/18/20 09/18/20 09/18/20 08:01 08:05 12:36 WBC RBC Hgb MCV MCH MCHC RDW Lymph % (Auto) Lymph # (Auto) Seg Neutrophils % Seg Neutrophils # PT INR APTT D-Dimer Heparin Anti-Xa Level ABG pH POC ABG pCO2 POC ABG pO2 ABG pO2 ABG HCO3 ABG O2 Saturation ABG Base Excess ABG Hemoglobin ABG Oxyhemoglobin ABG Sodium ABG Potassium ABG Chloride ABG Glucose Oxyhemoglobin Carboxyhemoglobin Sodium Potassium 3.1 L Chloride Carbon Dioxide BUN Creatinine Glucose 112 H POC Glucose 125 H 159 H Lactic Acid Calcium 8.3 L Phosphorus Ferritin AST 47 H Alkaline Phosphatase Ammonia Lactate Dehydrogenase Total Creatine Kinase CK-MB (CK-2) Troponin T C-Reactive Protein Total Protein Albumin 3.3 L Triglycerides HDL Cholesterol TSH Free T4 Arterial Blood Glucose Arterial Blood Ionized Calcium Urine WBC (Auto) Vancomycin Trough Salicylates Acetaminophen Coronavirus (PCR) 09/18/20 09/18/20 09/19/20 16:57 21:40 06:10 WBC RBC Hgb MCV MCH MCHC RDW Lymph % (Auto) Lymph # (Auto) Seg Neutrophils % Seg Neutrophils # PT INR APTT D-Dimer Heparin Anti-Xa Level ABG pH POC ABG pCO2 POC ABG pO2 ABG pO2 ABG HCO3 ABG O2 Saturation ABG Base Excess ABG Hemoglobin ABG Oxyhemoglobin ABG Sodium ABG Potassium ABG Chloride ABG Glucose Oxyhemoglobin Carboxyhemoglobin Sodium Potassium 2.8 L* Chloride 97.7 L Carbon Dioxide BUN Creatinine 0.4 L Glucose 146 H POC Glucose 180 H 225 H Lactic Acid Calcium 8.2 L Phosphorus Ferritin AST 45 H Alkaline Phosphatase Ammonia Lactate Dehydrogenase Total Creatine Kinase CK-MB (CK-2) Troponin T C-Reactive Protein Total Protein Albumin 3.5 L Triglycerides HDL Cholesterol TSH Free T4 Arterial Blood Glucose Arterial Blood Ionized Calcium Urine WBC (Auto) Vancomycin Trough Salicylates Acetaminophen Coronavirus (PCR) 09/19/20 09/19/20 09/19/20 08:06 11:14 17:50 WBC RBC Hgb MCV MCH MCHC RDW Lymph % (Auto) Lymph # (Auto) Seg Neutrophils % Seg Neutrophils # PT INR APTT D-Dimer Heparin Anti-Xa Level ABG pH POC ABG pCO2 POC ABG pO2 ABG pO2 ABG HCO3 ABG O2 Saturation ABG Base Excess ABG Hemoglobin ABG Oxyhemoglobin ABG Sodium ABG Potassium ABG Chloride ABG Glucose Oxyhemoglobin Carboxyhemoglobin Sodium Potassium Chloride Carbon Dioxide BUN Creatinine Glucose POC Glucose 175 H 210 H 291 H Lactic Acid Calcium Phosphorus Ferritin AST Alkaline Phosphatase Ammonia Lactate Dehydrogenase Total Creatine Kinase CK-MB (CK-2) Troponin T C-Reactive Protein Total Protein Albumin Triglycerides HDL Cholesterol TSH Free T4 Arterial Blood Glucose Arterial Blood Ionized Calcium Urine WBC (Auto) Vancomycin Trough Salicylates Acetaminophen Coronavirus (PCR) 09/19/20 09/20/20 09/20/20 21:30 05:23 05:23 WBC RBC Hgb MCV MCH MCHC RDW Lymph % (Auto) Lymph # (Auto) Seg Neutrophils % Seg Neutrophils # PT INR APTT D-Dimer Heparin Anti-Xa Level ABG pH POC ABG pCO2 POC ABG pO2 ABG pO2 ABG HCO3 ABG O2 Saturation ABG Base Excess ABG Hemoglobin ABG Oxyhemoglobin ABG Sodium ABG Potassium ABG Chloride ABG Glucose Oxyhemoglobin Carboxyhemoglobin Sodium 131 L Potassium 3.3 L D Chloride 95.4 L Carbon Dioxide 18 L BUN Creatinine 0.4 L Glucose 169 H POC Glucose 232 H Lactic Acid Calcium 8.3 L Phosphorus Ferritin 738.9 H AST Alkaline Phosphatase Ammonia Lactate Dehydrogenase 882 H Total Creatine Kinase CK-MB (CK-2) Troponin T C-Reactive Protein 11.40 H Total Protein Albumin Triglycerides HDL Cholesterol TSH Free T4 Arterial Blood Glucose Arterial Blood Ionized Calcium Urine WBC (Auto) Vancomycin Trough Salicylates Acetaminophen Coronavirus (PCR) 09/20/20 09/20/20 09/20/20 05:23 06:50 10:46 WBC RBC Hgb MCV MCH MCHC RDW Lymph % (Auto) Lymph # (Auto) Seg Neutrophils % Seg Neutrophils # PT INR APTT D-Dimer 4940.20 H Heparin Anti-Xa Level ABG pH 7.289 L POC ABG pCO2 POC ABG pO2 50.1 L ABG pO2 ABG HCO3 ABG O2 Saturation ABG Base Excess ABG Hemoglobin ABG Oxyhemoglobin 80.8 L ABG Sodium 130.8 L ABG Potassium ABG Chloride 97.0 L ABG Glucose 275 H Oxyhemoglobin Carboxyhemoglobin Sodium Potassium Chloride Carbon Dioxide BUN Creatinine Glucose POC Glucose 242 H Lactic Acid Calcium Phosphorus Ferritin AST Alkaline Phosphatase Ammonia Lactate Dehydrogenase Total Creatine Kinase CK-MB (CK-2) Troponin T C-Reactive Protein Total Protein Albumin Triglycerides HDL Cholesterol TSH Free T4 Arterial Blood Glucose 275 H Arterial Blood Ionized Calcium 4.2 L Urine WBC (Auto) Vancomycin Trough Salicylates Acetaminophen Coronavirus (PCR) 09/20/20 09/20/20 09/20/20 11:58 16:30 16:41 WBC RBC Hgb MCV MCH MCHC RDW Lymph % (Auto) Lymph # (Auto) Seg Neutrophils % Seg Neutrophils # PT INR APTT D-Dimer Heparin Anti-Xa Level ABG pH POC ABG pCO2 27.8 L POC ABG pO2 79.7 L ABG pO2 ABG HCO3 ABG O2 Saturation ABG Base Excess ABG Hemoglobin ABG Oxyhemoglobin ABG Sodium 131.0 L ABG Potassium ABG Chloride ABG Glucose 297 H Oxyhemoglobin Carboxyhemoglobin Sodium Potassium Chloride Carbon Dioxide BUN Creatinine Glucose POC Glucose 262 H 283 H Lactic Acid Calcium Phosphorus Ferritin AST Alkaline Phosphatase Ammonia Lactate Dehydrogenase Total Creatine Kinase CK-MB (CK-2) Troponin T C-Reactive Protein Total Protein Albumin Triglycerides HDL Cholesterol TSH Free T4 Arterial Blood Glucose 297 H Arterial Blood Ionized Calcium 4.3 L Urine WBC (Auto) Vancomycin Trough Salicylates Acetaminophen Coronavirus (PCR) 09/20/20 09/20/20 09/21/20 17:26 21:29 00:46 WBC RBC Hgb MCV MCH MCHC RDW Lymph % (Auto) Lymph # (Auto) Seg Neutrophils % Seg Neutrophils # PT INR APTT D-Dimer Heparin Anti-Xa Level ABG pH POC ABG pCO2 POC ABG pO2 ABG pO2 ABG HCO3 ABG O2 Saturation ABG Base Excess ABG Hemoglobin ABG Oxyhemoglobin ABG Sodium ABG Potassium ABG Chloride ABG Glucose Oxyhemoglobin Carboxyhemoglobin Sodium Potassium Chloride Carbon Dioxide BUN Creatinine Glucose POC Glucose 297 H 248 H Lactic Acid Calcium Phosphorus Ferritin AST Alkaline Phosphatase Ammonia Lactate Dehydrogenase Total Creatine Kinase CK-MB (CK-2) Troponin T 0.444 H* C-Reactive Protein Total Protein Albumin Triglycerides 156 H HDL Cholesterol 22 L TSH Free T4 Arterial Blood Glucose Arterial Blood Ionized Calcium Urine WBC (Auto) Vancomycin Trough Salicylates Acetaminophen Coronavirus (PCR) 09/21/20 09/21/20 09/21/20 00:46 02:14 03:22 WBC RBC Hgb MCV MCH MCHC RDW Lymph % (Auto) Lymph # (Auto) Seg Neutrophils % Seg Neutrophils # PT 20.0 H INR 1.65 H APTT 38.2 H D-Dimer Heparin Anti-Xa Level ABG pH POC ABG pCO2 POC ABG pO2 70.3 L ABG pO2 ABG HCO3 ABG O2 Saturation ABG Base Excess ABG Hemoglobin ABG Oxyhemoglobin 92.2 L ABG Sodium 134.2 L ABG Potassium ABG Chloride ABG Glucose 187 H Oxyhemoglobin Carboxyhemoglobin Sodium 134 L Potassium Chloride Carbon Dioxide 18 L BUN 23 H Creatinine Glucose 198 H POC Glucose Lactic Acid Calcium 6.7 L D Phosphorus Ferritin AST Alkaline Phosphatase Ammonia Lactate Dehydrogenase Total Creatine Kinase CK-MB (CK-2) Troponin T C-Reactive Protein Total Protein Albumin Triglycerides HDL Cholesterol TSH Free T4 Arterial Blood Glucose 187 H Arterial Blood Ionized Calcium 4.2 L Urine WBC (Auto) Vancomycin Trough Salicylates Acetaminophen Coronavirus (PCR) 09/21/20 09/21/20 09/21/20 07:26 08:15 11:21 WBC RBC Hgb MCV MCH MCHC RDW Lymph % (Auto) Lymph # (Auto) Seg Neutrophils % Seg Neutrophils # PT INR APTT D-Dimer Heparin Anti-Xa Level 0.97 H ABG pH POC ABG pCO2 POC ABG pO2 ABG pO2 ABG HCO3 ABG O2 Saturation ABG Base Excess ABG Hemoglobin ABG Oxyhemoglobin ABG Sodium ABG Potassium ABG Chloride ABG Glucose Oxyhemoglobin Carboxyhemoglobin Sodium Potassium Chloride Carbon Dioxide BUN Creatinine Glucose POC Glucose 157 H 153 H Lactic Acid Calcium Phosphorus Ferritin AST Alkaline Phosphatase Ammonia Lactate Dehydrogenase Total Creatine Kinase CK-MB (CK-2) Troponin T C-Reactive Protein Total Protein Albumin Triglycerides HDL Cholesterol TSH Free T4 Arterial Blood Glucose Arterial Blood Ionized Calcium Urine WBC (Auto) Vancomycin Trough Salicylates Acetaminophen Coronavirus (PCR) 09/21/20 09/21/20 09/21/20 15:16 15:59 18:58 WBC RBC Hgb MCV MCH MCHC RDW Lymph % (Auto) Lymph # (Auto) Seg Neutrophils % Seg Neutrophils # PT INR APTT D-Dimer Heparin Anti-Xa Level 0.90 H ABG pH POC ABG pCO2 POC ABG pO2 ABG pO2 ABG HCO3 ABG O2 Saturation ABG Base Excess ABG Hemoglobin ABG Oxyhemoglobin ABG Sodium ABG Potassium ABG Chloride ABG Glucose Oxyhemoglobin Carboxyhemoglobin Sodium Potassium Chloride Carbon Dioxide BUN Creatinine Glucose POC Glucose 192 H Lactic Acid Calcium Phosphorus Ferritin AST Alkaline Phosphatase Ammonia Lactate Dehydrogenase Total Creatine Kinase CK-MB (CK-2) Troponin T C-Reactive Protein 8.40 H Total Protein Albumin Triglycerides HDL Cholesterol TSH Free T4 Arterial Blood Glucose Arterial Blood Ionized Calcium Urine WBC (Auto) Vancomycin Trough Salicylates Acetaminophen Coronavirus (PCR) 09/21/20 09/21/20 09/22/20 18:58 21:14 01:33 WBC RBC Hgb MCV MCH MCHC RDW Lymph % (Auto) Lymph # (Auto) Seg Neutrophils % Seg Neutrophils # PT INR APTT D-Dimer Heparin Anti-Xa Level 0.78 H ABG pH POC ABG pCO2 POC ABG pO2 ABG pO2 ABG HCO3 ABG O2 Saturation ABG Base Excess ABG Hemoglobin ABG Oxyhemoglobin ABG Sodium ABG Potassium ABG Chloride ABG Glucose Oxyhemoglobin Carboxyhemoglobin Sodium Potassium Chloride Carbon Dioxide BUN Creatinine Glucose POC Glucose 172 H Lactic Acid Calcium Phosphorus Ferritin AST Alkaline Phosphatase Ammonia Lactate Dehydrogenase Total Creatine Kinase 536 H CK-MB (CK-2) 17.8 H Troponin T 0.793 H* D C-Reactive Protein Total Protein Albumin Triglycerides HDL Cholesterol TSH Free T4 Arterial Blood Glucose Arterial Blood Ionized Calcium Urine WBC (Auto) Vancomycin Trough Salicylates Acetaminophen Coronavirus (PCR) 09/22/20 09/22/20 09/22/20 04:15 07:15 10:22 WBC RBC Hgb MCV MCH MCHC RDW Lymph % (Auto) Lymph # (Auto) Seg Neutrophils % Seg Neutrophils # PT INR APTT D-Dimer Heparin Anti-Xa Level ABG pH POC ABG pCO2 POC ABG pO2 ABG pO2 ABG HCO3 ABG O2 Saturation ABG Base Excess ABG Hemoglobin ABG Oxyhemoglobin ABG Sodium 132.9 L ABG Potassium ABG Chloride ABG Glucose 155 H Oxyhemoglobin Carboxyhemoglobin Sodium Potassium Chloride Carbon Dioxide BUN Creatinine Glucose POC Glucose 159 H Lactic Acid Calcium Phosphorus Ferritin AST Alkaline Phosphatase Ammonia Lactate Dehydrogenase Total Creatine Kinase 1159 H CK-MB (CK-2) 14.4 H Troponin T 0.501 H* D C-Reactive Protein Total Protein Albumin Triglycerides HDL Cholesterol TSH Free T4 Arterial Blood Glucose 155 H Arterial Blood Ionized Calcium 4.3 L Urine WBC (Auto) Vancomycin Trough Salicylates Acetaminophen Coronavirus (PCR) 09/22/20 09/22/20 09/22/20 11:34 16:35 17:44 WBC RBC Hgb MCV MCH MCHC RDW Lymph % (Auto) Lymph # (Auto) Seg Neutrophils % Seg Neutrophils # PT INR APTT D-Dimer Heparin Anti-Xa Level 0.15 L ABG pH POC ABG pCO2 POC ABG pO2 ABG pO2 ABG HCO3 ABG O2 Saturation ABG Base Excess ABG Hemoglobin ABG Oxyhemoglobin ABG Sodium ABG Potassium ABG Chloride ABG Glucose Oxyhemoglobin Carboxyhemoglobin Sodium Potassium Chloride Carbon Dioxide BUN Creatinine Glucose POC Glucose 206 H 273 H Lactic Acid Calcium Phosphorus Ferritin AST Alkaline Phosphatase Ammonia Lactate Dehydrogenase Total Creatine Kinase CK-MB (CK-2) Troponin T C-Reactive Protein Total Protein Albumin Triglycerides HDL Cholesterol TSH Free T4 Arterial Blood Glucose Arterial Blood Ionized Calcium Urine WBC (Auto) Vancomycin Trough Salicylates Acetaminophen Coronavirus (PCR) 09/23/20 09/23/20 09/23/20 00:32 04:00 05:11 WBC RBC Hgb MCV MCH MCHC RDW Lymph % (Auto) Lymph # (Auto) Seg Neutrophils % Seg Neutrophils # PT INR APTT D-Dimer Heparin Anti-Xa Level ABG pH POC ABG pCO2 POC ABG pO2 75.7 L ABG pO2 ABG HCO3 ABG O2 Saturation ABG Base Excess ABG Hemoglobin ABG Oxyhemoglobin ABG Sodium 135.0 L ABG Potassium ABG Chloride ABG Glucose 237 H Oxyhemoglobin Carboxyhemoglobin Sodium Potassium Chloride Carbon Dioxide BUN Creatinine Glucose POC Glucose 287 H 210 H Lactic Acid Calcium Phosphorus Ferritin AST Alkaline Phosphatase Ammonia Lactate Dehydrogenase Total Creatine Kinase CK-MB (CK-2) Troponin T C-Reactive Protein Total Protein Albumin Triglycerides HDL Cholesterol TSH Free T4 Arterial Blood Glucose 237 H Arterial Blood Ionized Calcium 4.5 L Urine WBC (Auto) Vancomycin Trough Salicylates Acetaminophen Coronavirus (PCR) 09/23/20 09/23/20 09/23/20 08:02 10:03 10:03 WBC 13.8 H RBC Hgb MCV MCH MCHC RDW Lymph % (Auto) Lymph # (Auto) Seg Neutrophils % Seg Neutrophils # PT INR APTT D-Dimer 2573.89 H Heparin Anti-Xa Level ABG pH POC ABG pCO2 POC ABG pO2 ABG pO2 ABG HCO3 ABG O2 Saturation ABG Base Excess ABG Hemoglobin ABG Oxyhemoglobin ABG Sodium ABG Potassium ABG Chloride ABG Glucose Oxyhemoglobin Carboxyhemoglobin Sodium Potassium Chloride Carbon Dioxide BUN Creatinine Glucose POC Glucose 268 H Lactic Acid Calcium Phosphorus Ferritin AST Alkaline Phosphatase Ammonia Lactate Dehydrogenase Total Creatine Kinase CK-MB (CK-2) Troponin T C-Reactive Protein Total Protein Albumin Triglycerides HDL Cholesterol TSH Free T4 Arterial Blood Glucose Arterial Blood Ionized Calcium Urine WBC (Auto) Vancomycin Trough Salicylates Acetaminophen Coronavirus (PCR) 09/23/20 09/23/20 09/23/20 10:03 10:03 10:03 WBC RBC Hgb MCV MCH MCHC RDW Lymph % (Auto) Lymph # (Auto) Seg Neutrophils % Seg Neutrophils # PT INR APTT D-Dimer Heparin Anti-Xa Level 0.12 L ABG pH POC ABG pCO2 POC ABG pO2 ABG pO2 ABG HCO3 ABG O2 Saturation ABG Base Excess ABG Hemoglobin ABG Oxyhemoglobin ABG Sodium ABG Potassium ABG Chloride ABG Glucose Oxyhemoglobin Carboxyhemoglobin Sodium Potassium Chloride Carbon Dioxide BUN 26 H Creatinine Glucose 271 H POC Glucose Lactic Acid Calcium 8.2 L D Phosphorus Ferritin 1084.0 H AST Alkaline Phosphatase Ammonia Lactate Dehydrogenase 1592 H Total Creatine Kinase CK-MB (CK-2) Troponin T C-Reactive Protein 9.10 H Total Protein Albumin Triglycerides HDL Cholesterol TSH Free T4 Arterial Blood Glucose Arterial Blood Ionized Calcium Urine WBC (Auto) Vancomycin Trough Salicylates Acetaminophen Coronavirus (PCR) 09/23/20 09/23/20 09/23/20 12:17 18:30 20:01 WBC RBC Hgb MCV MCH MCHC RDW Lymph % (Auto) Lymph # (Auto) Seg Neutrophils % Seg Neutrophils # PT INR APTT D-Dimer Heparin Anti-Xa Level 0.15 L ABG pH POC ABG pCO2 POC ABG pO2 ABG pO2 ABG HCO3 ABG O2 Saturation ABG Base Excess ABG Hemoglobin ABG Oxyhemoglobin ABG Sodium ABG Potassium ABG Chloride ABG Glucose Oxyhemoglobin Carboxyhemoglobin Sodium Potassium Chloride Carbon Dioxide BUN Creatinine Glucose POC Glucose 282 H 392 H Lactic Acid Calcium Phosphorus Ferritin AST Alkaline Phosphatase Ammonia Lactate Dehydrogenase Total Creatine Kinase CK-MB (CK-2) Troponin T C-Reactive Protein Total Protein Albumin Triglycerides HDL Cholesterol TSH Free T4 Arterial Blood Glucose Arterial Blood Ionized Calcium Urine WBC (Auto) Vancomycin Trough Salicylates Acetaminophen Coronavirus (PCR) 09/23/20 09/23/20 09/24/20 21:08 23:58 04:00 WBC RBC Hgb MCV MCH MCHC RDW Lymph % (Auto) Lymph # (Auto) Seg Neutrophils % Seg Neutrophils # PT INR APTT D-Dimer Heparin Anti-Xa Level ABG pH POC ABG pCO2 55.6 H POC ABG pO2 75.6 L ABG pO2 ABG HCO3 ABG O2 Saturation ABG Base Excess ABG Hemoglobin ABG Oxyhemoglobin ABG Sodium 135.9 L ABG Potassium ABG Chloride ABG Glucose 330 H Oxyhemoglobin Carboxyhemoglobin Sodium Potassium Chloride Carbon Dioxide BUN Creatinine Glucose POC Glucose 373 H 391 H Lactic Acid Calcium Phosphorus Ferritin AST Alkaline Phosphatase Ammonia Lactate Dehydrogenase Total Creatine Kinase CK-MB (CK-2) Troponin T C-Reactive Protein Total Protein Albumin Triglycerides HDL Cholesterol TSH Free T4 Arterial Blood Glucose 330 H Arterial Blood Ionized Calcium 4.4 L Urine WBC (Auto) Vancomycin Trough Salicylates Acetaminophen Coronavirus (PCR) 09/24/20 09/24/20 09/24/20 04:30 04:30 05:04 WBC 12.4 H RBC Hgb MCV MCH MCHC RDW Lymph % (Auto) Lymph # (Auto) Seg Neutrophils % Seg Neutrophils # PT INR APTT D-Dimer Heparin Anti-Xa Level ABG pH POC ABG pCO2 POC ABG pO2 ABG pO2 ABG HCO3 ABG O2 Saturation ABG Base Excess ABG Hemoglobin ABG Oxyhemoglobin ABG Sodium ABG Potassium ABG Chloride ABG Glucose Oxyhemoglobin Carboxyhemoglobin Sodium Potassium Chloride Carbon Dioxide BUN 25 H Creatinine Glucose 337 H POC Glucose 316 H Lactic Acid Calcium 8.0 L Phosphorus Ferritin AST Alkaline Phosphatase Ammonia Lactate Dehydrogenase Total Creatine Kinase CK-MB (CK-2) Troponin T C-Reactive Protein Total Protein Albumin Triglycerides HDL Cholesterol TSH Free T4 Arterial Blood Glucose Arterial Blood Ionized Calcium Urine WBC (Auto) Vancomycin Trough Salicylates Acetaminophen Coronavirus (PCR) 09/24/20 09/24/20 09/24/20 11:41 17:32 23:41 WBC RBC Hgb MCV MCH MCHC RDW Lymph % (Auto) Lymph # (Auto) Seg Neutrophils % Seg Neutrophils # PT INR APTT D-Dimer Heparin Anti-Xa Level ABG pH POC ABG pCO2 POC ABG pO2 ABG pO2 ABG HCO3 ABG O2 Saturation ABG Base Excess ABG Hemoglobin ABG Oxyhemoglobin ABG Sodium ABG Potassium ABG Chloride ABG Glucose Oxyhemoglobin Carboxyhemoglobin Sodium Potassium Chloride Carbon Dioxide BUN Creatinine Glucose POC Glucose 240 H 271 H 349 H Lactic Acid Calcium Phosphorus Ferritin AST Alkaline Phosphatase Ammonia Lactate Dehydrogenase Total Creatine Kinase CK-MB (CK-2) Troponin T C-Reactive Protein Total Protein Albumin Triglycerides HDL Cholesterol TSH Free T4 Arterial Blood Glucose Arterial Blood Ionized Calcium Urine WBC (Auto) Vancomycin Trough Salicylates Acetaminophen Coronavirus (PCR) 09/25/20 09/25/20 09/25/20 05:11 09:43 09:43 WBC RBC Hgb MCV MCH MCHC RDW 15.4 H Lymph % (Auto) Lymph # (Auto) Seg Neutrophils % Seg Neutrophils # PT INR APTT D-Dimer 1481.03 H Heparin Anti-Xa Level ABG pH POC ABG pCO2 POC ABG pO2 ABG pO2 ABG HCO3 ABG O2 Saturation ABG Base Excess ABG Hemoglobin ABG Oxyhemoglobin ABG Sodium ABG Potassium ABG Chloride ABG Glucose Oxyhemoglobin Carboxyhemoglobin Sodium Potassium Chloride Carbon Dioxide BUN Creatinine Glucose POC Glucose 319 H Lactic Acid Calcium Phosphorus Ferritin AST Alkaline Phosphatase Ammonia Lactate Dehydrogenase Total Creatine Kinase CK-MB (CK-2) Troponin T C-Reactive Protein Total Protein Albumin Triglycerides HDL Cholesterol TSH Free T4 Arterial Blood Glucose Arterial Blood Ionized Calcium Urine WBC (Auto) Vancomycin Trough Salicylates Acetaminophen Coronavirus (PCR) 09/25/20 09/25/20 09/25/20 09:43 09:43 09:43 WBC RBC Hgb MCV MCH MCHC RDW Lymph % (Auto) Lymph # (Auto) Seg Neutrophils % Seg Neutrophils # PT INR APTT D-Dimer Heparin Anti-Xa Level 0.10 L ABG pH POC ABG pCO2 POC ABG pO2 ABG pO2 ABG HCO3 ABG O2 Saturation ABG Base Excess ABG Hemoglobin ABG Oxyhemoglobin ABG Sodium ABG Potassium ABG Chloride ABG Glucose Oxyhemoglobin Carboxyhemoglobin Sodium Potassium Chloride Carbon Dioxide 33 H BUN 26 H Creatinine Glucose 306 H POC Glucose Lactic Acid Calcium 8.1 L Phosphorus Ferritin 670.5 H AST Alkaline Phosphatase Ammonia Lactate Dehydrogenase 948 H Total Creatine Kinase CK-MB (CK-2) Troponin T C-Reactive Protein 6.70 H Total Protein Albumin Triglycerides HDL Cholesterol TSH Free T4 Arterial Blood Glucose Arterial Blood Ionized Calcium Urine WBC (Auto) Vancomycin Trough Salicylates Acetaminophen Coronavirus (PCR) 09/25/20 09/25/20 09/25/20 11:52 13:38 17:37 WBC RBC Hgb MCV MCH MCHC RDW Lymph % (Auto) Lymph # (Auto) Seg Neutrophils % Seg Neutrophils # PT INR APTT D-Dimer Heparin Anti-Xa Level ABG pH POC ABG pCO2 60.9 H POC ABG pO2 59.7 L ABG pO2 ABG HCO3 ABG O2 Saturation ABG Base Excess ABG Hemoglobin ABG Oxyhemoglobin 90.2 L ABG Sodium ABG Potassium ABG Chloride ABG Glucose 336 H Oxyhemoglobin Carboxyhemoglobin Sodium Potassium Chloride Carbon Dioxide BUN Creatinine Glucose POC Glucose 313 H 379 H Lactic Acid Calcium Phosphorus Ferritin AST Alkaline Phosphatase Ammonia Lactate Dehydrogenase Total Creatine Kinase CK-MB (CK-2) Troponin T C-Reactive Protein Total Protein Albumin Triglycerides HDL Cholesterol TSH Free T4 Arterial Blood Glucose 336 H Arterial Blood Ionized Calcium 4.4 L Urine WBC (Auto) Vancomycin Trough Salicylates Acetaminophen Coronavirus (PCR) 09/25/20 09/25/20 09/26/20 20:52 23:23 00:32 WBC RBC Hgb MCV MCH MCHC RDW Lymph % (Auto) Lymph # (Auto) Seg Neutrophils % Seg Neutrophils # PT INR APTT D-Dimer Heparin Anti-Xa Level 0.10 L ABG pH POC ABG pCO2 POC ABG pO2 ABG pO2 ABG HCO3 ABG O2 Saturation ABG Base Excess ABG Hemoglobin ABG Oxyhemoglobin ABG Sodium ABG Potassium ABG Chloride ABG Glucose Oxyhemoglobin Carboxyhemoglobin Sodium Potassium Chloride Carbon Dioxide BUN Creatinine Glucose POC Glucose 387 H 269 H Lactic Acid Calcium Phosphorus Ferritin AST Alkaline Phosphatase Ammonia Lactate Dehydrogenase Total Creatine Kinase CK-MB (CK-2) Troponin T C-Reactive Protein Total Protein Albumin Triglycerides HDL Cholesterol TSH Free T4 Arterial Blood Glucose Arterial Blood Ionized Calcium Urine WBC (Auto) Vancomycin Trough Salicylates Acetaminophen Coronavirus (PCR) 09/26/20 09/26/20 09/26/20 02:23 02:23 03:53 WBC 11.4 H RBC Hgb MCV MCH MCHC RDW Lymph % (Auto) Lymph # (Auto) Seg Neutrophils % Seg Neutrophils # PT INR APTT D-Dimer Heparin Anti-Xa Level ABG pH POC ABG pCO2 58.5 H POC ABG pO2 69.5 L ABG pO2 ABG HCO3 ABG O2 Saturation ABG Base Excess ABG Hemoglobin ABG Oxyhemoglobin 93.5 L ABG Sodium ABG Potassium ABG Chloride ABG Glucose 272 H Oxyhemoglobin Carboxyhemoglobin Sodium Potassium Chloride Carbon Dioxide 33 H BUN 27 H Creatinine Glucose 316 H POC Glucose Lactic Acid Calcium 7.9 L Phosphorus 2.20 L Ferritin AST Alkaline Phosphatase Ammonia Lactate Dehydrogenase Total Creatine Kinase CK-MB (CK-2) Troponin T C-Reactive Protein Total Protein Albumin Triglycerides HDL Cholesterol TSH Free T4 Arterial Blood Glucose 272 H Arterial Blood Ionized Calcium 4.3 L Urine WBC (Auto) Vancomycin Trough Salicylates Acetaminophen Coronavirus (PCR) 09/26/20 09/26/20 09/26/20 05:43 05:43 11:57 WBC RBC Hgb MCV MCH MCHC RDW Lymph % (Auto) Lymph # (Auto) Seg Neutrophils % Seg Neutrophils # PT INR APTT D-Dimer Heparin Anti-Xa Level 0.15 L ABG pH POC ABG pCO2 POC ABG pO2 ABG pO2 ABG HCO3 ABG O2 Saturation ABG Base Excess ABG Hemoglobin ABG Oxyhemoglobin ABG Sodium ABG Potassium ABG Chloride ABG Glucose Oxyhemoglobin Carboxyhemoglobin Sodium Potassium Chloride Carbon Dioxide BUN Creatinine Glucose POC Glucose 277 H 345 H Lactic Acid Calcium Phosphorus Ferritin AST Alkaline Phosphatase Ammonia Lactate Dehydrogenase Total Creatine Kinase CK-MB (CK-2) Troponin T C-Reactive Protein Total Protein Albumin Triglycerides HDL Cholesterol TSH Free T4 Arterial Blood Glucose Arterial Blood Ionized Calcium Urine WBC (Auto) Vancomycin Trough Salicylates Acetaminophen Coronavirus (PCR) 09/26/20 09/26/20 09/26/20 13:17 17:53 23:45 WBC RBC Hgb MCV MCH MCHC RDW Lymph % (Auto) Lymph # (Auto) Seg Neutrophils % Seg Neutrophils # PT INR APTT D-Dimer Heparin Anti-Xa Level ABG pH POC ABG pCO2 POC ABG pO2 ABG pO2 ABG HCO3 ABG O2 Saturation ABG Base Excess ABG Hemoglobin ABG Oxyhemoglobin ABG Sodium ABG Potassium ABG Chloride ABG Glucose Oxyhemoglobin Carboxyhemoglobin Sodium Potassium Chloride Carbon Dioxide BUN Creatinine Glucose POC Glucose 292 H 331 H Lactic Acid 2.50 H* Calcium Phosphorus Ferritin AST Alkaline Phosphatase Ammonia Lactate Dehydrogenase Total Creatine Kinase CK-MB (CK-2) Troponin T C-Reactive Protein Total Protein Albumin Triglycerides HDL Cholesterol TSH Free T4 Arterial Blood Glucose Arterial Blood Ionized Calcium Urine WBC (Auto) Vancomycin Trough Salicylates Acetaminophen Coronavirus (PCR) 09/27/20 09/27/20 09/27/20 03:03 04:47 04:47 WBC 11.8 H RBC Hgb MCV MCH 33 H MCHC RDW 15.3 H Lymph % (Auto) Lymph # (Auto) Seg Neutrophils % Seg Neutrophils # PT INR APTT D-Dimer Heparin Anti-Xa Level ABG pH POC ABG pCO2 61.3 H POC ABG pO2 80.6 L ABG pO2 ABG HCO3 ABG O2 Saturation ABG Base Excess ABG Hemoglobin ABG Oxyhemoglobin ABG Sodium ABG Potassium 4.6 H ABG Chloride ABG Glucose 358 H Oxyhemoglobin Carboxyhemoglobin Sodium Potassium Chloride Carbon Dioxide 34 H BUN 31 H Creatinine Glucose 330 H POC Glucose Lactic Acid Calcium 8.0 L Phosphorus Ferritin AST Alkaline Phosphatase Ammonia Lactate Dehydrogenase Total Creatine Kinase CK-MB (CK-2) Troponin T C-Reactive Protein Total Protein Albumin Triglycerides HDL Cholesterol TSH Free T4 Arterial Blood Glucose 358 H Arterial Blood Ionized Calcium 4.2 L Urine WBC (Auto) Vancomycin Trough Salicylates Acetaminophen Coronavirus (PCR) 09/27/20 09/27/20 09/27/20 04:47 05:15 12:29 WBC RBC Hgb MCV MCH MCHC RDW Lymph % (Auto) Lymph # (Auto) Seg Neutrophils % Seg Neutrophils # PT INR APTT D-Dimer Heparin Anti-Xa Level < 0.10 L ABG pH POC ABG pCO2 POC ABG pO2 ABG pO2 ABG HCO3 ABG O2 Saturation ABG Base Excess ABG Hemoglobin ABG Oxyhemoglobin ABG Sodium ABG Potassium ABG Chloride ABG Glucose Oxyhemoglobin Carboxyhemoglobin Sodium Potassium Chloride Carbon Dioxide BUN Creatinine Glucose POC Glucose 303 H 310 H Lactic Acid Calcium Phosphorus Ferritin AST Alkaline Phosphatase Ammonia Lactate Dehydrogenase Total Creatine Kinase CK-MB (CK-2) Troponin T C-Reactive Protein Total Protein Albumin Triglycerides HDL Cholesterol TSH Free T4 Arterial Blood Glucose Arterial Blood Ionized Calcium Urine WBC (Auto) Vancomycin Trough Salicylates Acetaminophen Coronavirus (PCR) 09/27/20 09/27/20 09/28/20 17:06 23:05 04:00 WBC RBC Hgb MCV MCH MCHC RDW Lymph % (Auto) Lymph # (Auto) Seg Neutrophils % Seg Neutrophils # PT INR APTT D-Dimer Heparin Anti-Xa Level ABG pH POC ABG pCO2 63.5 H POC ABG pO2 76.9 L ABG pO2 ABG HCO3 ABG O2 Saturation ABG Base Excess ABG Hemoglobin ABG Oxyhemoglobin ABG Sodium ABG Potassium ABG Chloride ABG Glucose 228 H Oxyhemoglobin Carboxyhemoglobin 0.4 L Sodium Potassium Chloride Carbon Dioxide BUN Creatinine Glucose POC Glucose 277 H 261 H Lactic Acid Calcium Phosphorus Ferritin AST Alkaline Phosphatase Ammonia Lactate Dehydrogenase Total Creatine Kinase CK-MB (CK-2) Troponin T C-Reactive Protein Total Protein Albumin Triglycerides HDL Cholesterol TSH Free T4 Arterial Blood Glucose 228 H Arterial Blood Ionized Calcium Urine WBC (Auto) Vancomycin Trough Salicylates Acetaminophen Coronavirus (PCR) 09/28/20 09/28/20 09/28/20 05:33 05:44 05:44 WBC 11.3 H RBC Hgb MCV MCH MCHC RDW 15.6 H Lymph % (Auto) Lymph # (Auto) Seg Neutrophils % Seg Neutrophils # PT INR APTT D-Dimer Heparin Anti-Xa Level ABG pH POC ABG pCO2 POC ABG pO2 ABG pO2 ABG HCO3 ABG O2 Saturation ABG Base Excess ABG Hemoglobin ABG Oxyhemoglobin ABG Sodium ABG Potassium ABG Chloride ABG Glucose Oxyhemoglobin Carboxyhemoglobin Sodium 148 H Potassium Chloride Carbon Dioxide 38 H BUN 30 H Creatinine 0.5 L Glucose 192 H POC Glucose 206 H Lactic Acid Calcium Phosphorus Ferritin AST Alkaline Phosphatase Ammonia Lactate Dehydrogenase Total Creatine Kinase CK-MB (CK-2) Troponin T C-Reactive Protein Total Protein Albumin Triglycerides HDL Cholesterol TSH Free T4 Arterial Blood Glucose Arterial Blood Ionized Calcium Urine WBC (Auto) Vancomycin Trough Salicylates Acetaminophen Coronavirus (PCR) 09/28/20 09/28/20 09/28/20 11:30 14:10 14:10 WBC RBC Hgb MCV MCH MCHC RDW Lymph % (Auto) Lymph # (Auto) Seg Neutrophils % Seg Neutrophils # PT INR APTT D-Dimer 4603.21 H Heparin Anti-Xa Level ABG pH POC ABG pCO2 POC ABG pO2 ABG pO2 ABG HCO3 ABG O2 Saturation ABG Base Excess ABG Hemoglobin ABG Oxyhemoglobin ABG Sodium ABG Potassium ABG Chloride ABG Glucose Oxyhemoglobin Carboxyhemoglobin Sodium Potassium Chloride Carbon Dioxide BUN Creatinine Glucose POC Glucose 235 H Lactic Acid Calcium Phosphorus Ferritin 530.1 H AST Alkaline Phosphatase Ammonia Lactate Dehydrogenase Total Creatine Kinase CK-MB (CK-2) Troponin T C-Reactive Protein Total Protein Albumin Triglycerides HDL Cholesterol TSH Free T4 Arterial Blood Glucose Arterial Blood Ionized Calcium Urine WBC (Auto) Vancomycin Trough Salicylates Acetaminophen Coronavirus (PCR) 09/28/20 09/28/20 09/28/20 14:10 16:55 23:08 WBC RBC Hgb MCV MCH MCHC RDW Lymph % (Auto) Lymph # (Auto) Seg Neutrophils % Seg Neutrophils # PT INR APTT D-Dimer Heparin Anti-Xa Level ABG pH POC ABG pCO2 POC ABG pO2 ABG pO2 ABG HCO3 ABG O2 Saturation ABG Base Excess ABG Hemoglobin ABG Oxyhemoglobin ABG Sodium ABG Potassium ABG Chloride ABG Glucose Oxyhemoglobin Carboxyhemoglobin Sodium Potassium Chloride Carbon Dioxide BUN Creatinine Glucose POC Glucose 261 H 219 H Lactic Acid Calcium Phosphorus Ferritin AST Alkaline Phosphatase Ammonia Lactate Dehydrogenase 648 H Total Creatine Kinase CK-MB (CK-2) Troponin T C-Reactive Protein Total Protein Albumin Triglycerides HDL Cholesterol TSH Free T4 Arterial Blood Glucose Arterial Blood Ionized Calcium Urine WBC (Auto) Vancomycin Trough Salicylates Acetaminophen Coronavirus (PCR) 09/29/20 09/29/20 09/29/20 02:50 05:39 07:52 WBC 15.1 H RBC Hgb MCV 99 H MCH MCHC RDW 15.7 H Lymph % (Auto) Lymph # (Auto) Seg Neutrophils % Seg Neutrophils # PT INR APTT D-Dimer Heparin Anti-Xa Level ABG pH 7.335 L POC ABG pCO2 POC ABG pO2 ABG pO2 63.6 L ABG HCO3 38.9 H ABG O2 Saturation 91.9 L ABG Base Excess 10.4 H ABG Hemoglobin 11.9 L ABG Oxyhemoglobin ABG Sodium ABG Potassium ABG Chloride ABG Glucose Oxyhemoglobin 90.1 L Carboxyhemoglobin Sodium Potassium Chloride Carbon Dioxide BUN Creatinine Glucose POC Glucose 248 H Lactic Acid Calcium Phosphorus Ferritin AST Alkaline Phosphatase Ammonia Lactate Dehydrogenase Total Creatine Kinase CK-MB (CK-2) Troponin T C-Reactive Protein Total Protein Albumin Triglycerides HDL Cholesterol TSH Free T4 Arterial Blood Glucose Arterial Blood Ionized Calcium Urine WBC (Auto) Vancomycin Trough Salicylates Acetaminophen Coronavirus (PCR) 09/29/20 09/29/20 09/29/20 07:52 11:46 13:56 WBC RBC Hgb MCV MCH MCHC RDW Lymph % (Auto) Lymph # (Auto) Seg Neutrophils % Seg Neutrophils # PT INR APTT D-Dimer Heparin Anti-Xa Level ABG pH POC ABG pCO2 POC ABG pO2 ABG pO2 ABG HCO3 ABG O2 Saturation ABG Base Excess ABG Hemoglobin ABG Oxyhemoglobin ABG Sodium ABG Potassium ABG Chloride ABG Glucose Oxyhemoglobin Carboxyhemoglobin Sodium Potassium 5.6 H D 5.7 H Chloride Carbon Dioxide 33 H 38 H BUN 40 H 48 H Creatinine Glucose 238 H 282 H POC Glucose 238 H Lactic Acid Calcium 8.2 L 8.3 L Phosphorus Ferritin AST Alkaline Phosphatase Ammonia Lactate Dehydrogenase Total Creatine Kinase CK-MB (CK-2) Troponin T C-Reactive Protein Total Protein Albumin Triglycerides HDL Cholesterol TSH Free T4 Arterial Blood Glucose Arterial Blood Ionized Calcium Urine WBC (Auto) Vancomycin Trough Salicylates Acetaminophen Coronavirus (PCR) 09/29/20 09/29/20 09/29/20 17:13 21:00 23:54 WBC RBC Hgb MCV MCH MCHC RDW Lymph % (Auto) Lymph # (Auto) Seg Neutrophils % Seg Neutrophils # PT INR APTT D-Dimer Heparin Anti-Xa Level ABG pH POC ABG pCO2 POC ABG pO2 ABG pO2 ABG HCO3 ABG O2 Saturation ABG Base Excess ABG Hemoglobin ABG Oxyhemoglobin ABG Sodium ABG Potassium ABG Chloride ABG Glucose Oxyhemoglobin Carboxyhemoglobin Sodium Potassium Chloride Carbon Dioxide BUN Creatinine Glucose POC Glucose 282 H 302 H Lactic Acid Calcium Phosphorus Ferritin AST Alkaline Phosphatase Ammonia Lactate Dehydrogenase Total Creatine Kinase CK-MB (CK-2) Troponin T C-Reactive Protein Total Protein Albumin Triglycerides HDL Cholesterol TSH Free T4 Arterial Blood Glucose Arterial Blood Ionized Calcium Urine WBC (Auto) 28.0 H Vancomycin Trough Salicylates Acetaminophen Coronavirus (PCR) 09/30/20 09/30/20 09/30/20 05:06 07:19 07:19 WBC RBC Hgb MCV MCH MCHC RDW Lymph % (Auto) Lymph # (Auto) Seg Neutrophils % Seg Neutrophils # PT INR APTT D-Dimer 1776.66 H Heparin Anti-Xa Level 1.69 H ABG pH POC ABG pCO2 POC ABG pO2 ABG pO2 ABG HCO3 ABG O2 Saturation ABG Base Excess ABG Hemoglobin ABG Oxyhemoglobin ABG Sodium ABG Potassium ABG Chloride ABG Glucose Oxyhemoglobin Carboxyhemoglobin Sodium Potassium Chloride Carbon Dioxide BUN Creatinine Glucose POC Glucose 271 H Lactic Acid Calcium Phosphorus Ferritin 770.1 H AST Alkaline Phosphatase Ammonia Lactate Dehydrogenase Total Creatine Kinase CK-MB (CK-2) Troponin T C-Reactive Protein Total Protein Albumin Triglycerides HDL Cholesterol TSH Free T4 Arterial Blood Glucose Arterial Blood Ionized Calcium Urine WBC (Auto) Vancomycin Trough Salicylates Acetaminophen Coronavirus (PCR) 09/30/20 09/30/20 09/30/20 07:19 07:19 07:19 WBC 13.4 H RBC 3.55 L Hgb MCV 100 H MCH MCHC RDW 16.3 H Lymph % (Auto) Lymph # (Auto) Seg Neutrophils % Seg Neutrophils # PT INR APTT D-Dimer Heparin Anti-Xa Level ABG pH POC ABG pCO2 POC ABG pO2 ABG pO2 ABG HCO3 ABG O2 Saturation ABG Base Excess ABG Hemoglobin ABG Oxyhemoglobin ABG Sodium ABG Potassium ABG Chloride ABG Glucose Oxyhemoglobin Carboxyhemoglobin Sodium 149 H Potassium Chloride 107.9 H Carbon Dioxide 38 H BUN 47 H Creatinine Glucose 253 H POC Glucose Lactic Acid Calcium 7.9 L Phosphorus Ferritin AST 44 H Alkaline Phosphatase 135 H Ammonia Lactate Dehydrogenase 560 H Total Creatine Kinase CK-MB (CK-2) Troponin T C-Reactive Protein Total Protein 5.1 L Albumin 2.5 L Triglycerides HDL Cholesterol TSH Free T4 Arterial Blood Glucose Arterial Blood Ionized Calcium Urine WBC (Auto) Vancomycin Trough Salicylates Acetaminophen Coronavirus (PCR) 09/30/20 09/30/20 09/30/20 07:59 12:02 16:24 WBC RBC Hgb MCV MCH MCHC RDW Lymph % (Auto) Lymph # (Auto) Seg Neutrophils % Seg Neutrophils # PT INR APTT D-Dimer Heparin Anti-Xa Level 1.04 H ABG pH 7.280 L POC ABG pCO2 74.7 H POC ABG pO2 55.3 L ABG pO2 ABG HCO3 ABG O2 Saturation ABG Base Excess ABG Hemoglobin 11.8 L ABG Oxyhemoglobin 86.3 L ABG Sodium ABG Potassium ABG Chloride ABG Glucose 236 H Oxyhemoglobin Carboxyhemoglobin 0.2 L Sodium Potassium Chloride Carbon Dioxide BUN Creatinine Glucose POC Glucose 267 H Lactic Acid Calcium Phosphorus Ferritin AST Alkaline Phosphatase Ammonia Lactate Dehydrogenase Total Creatine Kinase CK-MB (CK-2) Troponin T C-Reactive Protein Total Protein Albumin Triglycerides HDL Cholesterol TSH Free T4 Arterial Blood Glucose 236 H Arterial Blood Ionized Calcium Urine WBC (Auto) Vancomycin Trough Salicylates Acetaminophen Coronavirus (PCR) 09/30/20 09/30/20 10/01/20 17:47 23:37 02:18 WBC RBC Hgb MCV MCH MCHC RDW Lymph % (Auto) Lymph # (Auto) Seg Neutrophils % Seg Neutrophils # PT INR APTT D-Dimer Heparin Anti-Xa Level 0.78 H ABG pH POC ABG pCO2 POC ABG pO2 ABG pO2 ABG HCO3 ABG O2 Saturation ABG Base Excess ABG Hemoglobin ABG Oxyhemoglobin ABG Sodium ABG Potassium ABG Chloride ABG Glucose Oxyhemoglobin Carboxyhemoglobin Sodium Potassium Chloride Carbon Dioxide BUN Creatinine Glucose POC Glucose 218 H 194 H Lactic Acid Calcium Phosphorus Ferritin AST Alkaline Phosphatase Ammonia Lactate Dehydrogenase Total Creatine Kinase CK-MB (CK-2) Troponin T C-Reactive Protein Total Protein Albumin Triglycerides HDL Cholesterol TSH Free T4 Arterial Blood Glucose Arterial Blood Ionized Calcium Urine WBC (Auto) Vancomycin Trough Salicylates Acetaminophen Coronavirus (PCR) 10/01/20 10/01/20 10/01/20 03:09 05:52 10:34 WBC RBC Hgb MCV MCH MCHC RDW Lymph % (Auto) Lymph # (Auto) Seg Neutrophils % Seg Neutrophils # PT INR APTT D-Dimer Heparin Anti-Xa Level ABG pH 7.270 L POC ABG pCO2 81.8 H POC ABG pO2 50.9 L ABG pO2 ABG HCO3 ABG O2 Saturation ABG Base Excess ABG Hemoglobin 11.5 L ABG Oxyhemoglobin 82.7 L ABG Sodium 145.5 H ABG Potassium ABG Chloride ABG Glucose 196 H Oxyhemoglobin Carboxyhemoglobin Sodium Potassium Chloride Carbon Dioxide BUN Creatinine Glucose POC Glucose 163 H Lactic Acid Calcium Phosphorus Ferritin AST Alkaline Phosphatase Ammonia Lactate Dehydrogenase Total Creatine Kinase CK-MB (CK-2) Troponin T C-Reactive Protein Total Protein Albumin Triglycerides HDL Cholesterol TSH Free T4 Arterial Blood Glucose 196 H Arterial Blood Ionized Calcium 4.5 L Urine WBC (Auto) Vancomycin Trough 20.6 H Salicylates Acetaminophen Coronavirus (PCR) 10/01/20 10/01/20 10/01/20 10:34 10:34 12:19 WBC 13.4 H RBC 3.21 L Hgb MCV 98 H MCH 33 H MCHC RDW 15.5 H Lymph % (Auto) Lymph # (Auto) Seg Neutrophils % Seg Neutrophils # PT INR APTT D-Dimer Heparin Anti-Xa Level ABG pH POC ABG pCO2 POC ABG pO2 ABG pO2 ABG HCO3 ABG O2 Saturation ABG Base Excess ABG Hemoglobin ABG Oxyhemoglobin ABG Sodium ABG Potassium ABG Chloride ABG Glucose Oxyhemoglobin Carboxyhemoglobin Sodium 148 H Potassium Chloride Carbon Dioxide 36 H BUN 63 H Creatinine Glucose 106 H POC Glucose 118 H Lactic Acid Calcium 7.5 L Phosphorus Ferritin AST Alkaline Phosphatase Ammonia Lactate Dehydrogenase Total Creatine Kinase CK-MB (CK-2) Troponin T C-Reactive Protein Total Protein Albumin Triglycerides HDL Cholesterol TSH Free T4 Arterial Blood Glucose Arterial Blood Ionized Calcium Urine WBC (Auto) Vancomycin Trough Salicylates Acetaminophen Coronavirus (PCR) Allied health notes reviewed: nursing
[2020-10-01] MEDS: fentaNYL DRIP Premix 2,000 MCG/100 ML BAG IV SCH (17:56)
[2020-10-01 18:29] VITALS: BP 86/60
--- NOTE | 2020-10-01 20:15 | Event Note ---
Date: 10/01/20 A CODE AMMY was called. I presented to the bedside. The patient was found in asystolic arrest. Patient treated" with ACLS protocol and remained in asystolic arrest. On neurologic exam the patient pupils are fixed and dilated. On pulmonary exam the patient had absent breath sounds. On cardiac exam patient heartbeat was absent. Patient found to have asystole on hospice volunteer. Patient pronounced at 2004 hrs. 65 minutes medical care time dedicated to bedside patient care. Patient family notified. Advanced care planning con ducted.
--- NOTE | 2020-10-01 20:16 | Death Note ---
Note Date of : 10/01/20 Time of : 20:04 Time Pronounced: 20:04 - Preliminary Cause of (problem) (1) 2019 novel coronavirus detected Preliminary cause of (2) Acute respiratory failure with hypoxia Preliminary cause of
[2020-10-01] MEDS ORDERED: VANCOMYCIN/NS 1 GM/250 ML 1 GM/250 ML BAG IV SCH (22:00)
--- NOTE | 2020-10-03 09:03 | Death Summary ---
Summary - Providers Date of service: 10/02/20 Consults: 09/15/20 20:38 Consult to Physician [CONS] Urgent Comment: Consulting Provider: ZEENAT DUMONT Physician Instructions: Reason For Exam: multi organ issues 09/15/20 22:09 Consult to Physician [CONS] Routine Comment: Consulting Provider: PRESLEY STOUT Physician Instructions: Reason For Exam: Pneumonia- R/O Covid-19 09/15/20 22:10 Consult to Dietitian/Nutrition [CONS] Routine Physician Instructions: Reason For Exam: Reason for Consult: Diet education 09/16/20 03:03 Consult to Mental Health [CONS] Routine Reason For Exam: Drug overdose. H/O Bipolar disorder 09/17/20 09:38 Physical Therapy Evaluation and Treat [CONS] Routine Comment: Reason For Exam: weakness 09/21/20 01:47 Consult to Cardiology [CONS] Routine Consulting Provider: YARITZA DIA Reason For Exam: ELEVATED TROPONIN, ABNORMAL EKG,COVID +VE 09/22/20 08:00 Consult to Dietitian/Nutrition [CONS] Routine Physician Instructions: Reason For Exam: Reason for Consult: Write/Manage Tube Feeding 09/22/20 19:46 Consult to Wound/ET Nurse [CONS] Stat Reason For Exam: wound eval BUTTOCKS 09/29/20 15:09 PICC Line Insertion [Consult to PICC Line RN] [CONS] Urgent Reason For Exam: Sepsis Type Line:: PICC Attending: SHANTHI CAVAZOS - summary Date of admission: 09/15/20 22:09 Date of : 10/01/20 Significant findings: Cause of : Cardiopulmonary arrest due to acute hypoxic respiratory failure, severe sepsis, severe COVID-19 pneumonia Brief history: This is a 54-year-old female with bipolar disorder, hypothyroidism, hypertension, diabetes mellitus who presents to the emergency department via EMS after having being found on the floor with a generalized weakness vs syncope as the patient is in the case that she took some trazodone in order to get to sleep but cannot recall how many tablets she took her dosage. The final regimen patient was confused but arousable and responds to questions during her course of stay. In the emergency department she was found to be hypoxic upon arrival with O2 sat of 82% on room air and was placed on supplemental oxygen. Work-up in the emergency department included a CXR which revealed patchy parenchymal opacities, hyponatremia of 128, hypokalemia 3.2, elevated blood glucose of 388, lactic acidosis 2.7, elevated TSH at 34.67 and free T4 at 0.1. UA revealed UTI and tox screen revealed Tylenol level of 9.1. Patient was admitted to the hospital service with acute hypoxic respiratory failure secondary to pneumonia, hypokalemia, drug overdose and hyperglycemia. She was admitted as a COVID-19 PUI and infectious disease was also consulted. Psych was consulted for history of bipolar and possible drug overdose. Upon arrival to the ICU for progressive shortness of breath and progressively worsening CXR patient was noted to have an NSTEMI and cardiology was consulted. Daily clinical course: 09/16/2020: COVID-pneumonia. Coronavirus PCR positive, Patient on 5 L nasal cannula oxygen. Initiated on Covid protocol. ID consulted. Pulmonary critical care following. 09/17/2020: Covid pneumonia, Covid PCR positive yesterday. Patient on 5 L nasal cannula oxygen. ID consult appreciated, On remdesivir and steroid 09/18/2020: Still on 5 L nasal cannula oxygen, Saturations dropped to 88% on 3 L nasal cannula oxygen, Trying to wean but not possible, Continue remdesivir 09/20/2020: Patient is severely hypoxemic, requiring very high flow oxygen And intermittent BiPAP, x-ray chest worsening infiltrates. Patient is severely hypoxemic even on BiPAP, criminal justice lawyer recommend. Transfer to ICU for close observation and possible intubation if no improvement . I called MATTYK patient's mother and discussed in detail patient's deterioration, severe hypoxemia, Transfer to ICU, possible intubation if needed she informed me that. Her recently, With Covid infection, and she herself is Covid po sitive. 09/21/2020; patient was intubated yesterday, On ventilatory support, Non-ST elevation KS, check echocardiogram, Cardiology evaluation noted and appreciated. Discussed with 09/22: Patient's PEEP was increased to 14. CCM, will order to remove her Laura catheter today and IV heparin was changed to IV Lovenox 09/23: Continue current medical management for NSTEMI, advance O ETT by 1 cm, increase PEEP and reduced FiO2 per CCM. Patient had retention today and Laura will be replaced with 30 straight cath and patient will be started on Flomax. 09/24: Patient received Actemra today, CCM added doxazosin, we increase Lantus and SSI today for tighter glycemic control. 09/25: No acute events reported overnight. Increase in lantus. Vent changes made in accordance to ABG. 09/26: No acute overnight events reported. increased lantus again 09/27: family updated by [facility], BLE dopplars pending, increased lantus. 09/28: CCM reduced FiO2 to 85%, avoiding bilateral lower extremity Doppler ultr asounds. Patient remains sedated on fentanyl. 09/29 remains intubated requiring high vent support- see systems review above 09/30 remains intubated on pressors- see systems review above. Patient is a 54 y/o WF with bipolar disorder, hypothyroidism, hypertension, diabetes mellitus who presents to the emergency department via EMS after having being found on the floor who then tested positive for COVID and eventually required intubation since 09/20/20: Now remains intubated and sedated. reviewed vitals, discussed with RN. tolerating TF. requiring 100% FiO2 to maintain o2 sat, very poor prognosis. Continue to follow clinically with supportive care. 10/01 remains intubated and on pressors; agonal breathing on ACPRV [id number]; on dual plt therapy and heparin; oozing from mouth (plts 143/hgb 10) - appears old no fresh blood. follow h/h. Pt on heparin drip for elevated d-dimer. may need to stop heparin drip if bleeding recurs. requiring 100% FiO2 to maintain o2 sat, very poor prognosis. Continue to follow clinically with supportive care. Per claim inspector physician: 20:13 A TIAN GIMENEZ was called. I presented to the bedside. The patient was found in asystolic arrest. Patient treated" with ACLS protocol and remained in asystolic arrest. On neurologic exam the patient pupils are fixed and dilated. On pulmonary exam the patient had absent breath sounds. On cardiac exam patient heartbeat was absent. Patient found to have asystole on telemetry monitor. Patient pronounced at 2004 hrs. 65 minutes medical care time dedicated to bedside patient care. Patient family notified. Advanced care planning conducted.
== END 2020-10-01 20:04 | DRG 870 ==
LOC: ED 18:14 → CC1 22:09 → 3A 09-16 16:02 → CC1 09-20 14:36
PROVIDERS: ADMIT Internal Medicine Geriatric Medicine; ATTEND Internal Medicine
PROC: 4A033R1 Measurement of Arterial Saturation, Peripheral, Percutaneous Approach (ICD-10-PCS; 2020-09-15)
PROC: XW033E5 Introduction of Remdesivir Anti-infective into Peripheral Vein, Percutaneous Approach, New Technology Group 5 (ICD-10-PCS; 2020-09-16)
PROC: 5A1955Z Respiratory Ventilation, Greater than 96 Consecutive Hours (ICD-10-PCS; principal; 2020-09-20)
PROC: 5A09357 Assistance with Respiratory Ventilation, Less than 24 Consecutive Hours, Continuous Positive Airway Pressure (ICD-10-PCS; 2020-09-20)
PROC: 06HY33Z Insertion of Infusion Device into Lower Vein, Percutaneous Approach (ICD-10-PCS; 2020-09-30)
DX: A41.9 Sepsis, unspecified organism (principal); U07.1 COVID-19; J96.01 Acute respiratory failure with hypoxia; G93.41 Metabolic encephalopathy; J12.82 Pneumonia due to coronavirus disease 2019; I21.4 Non-ST elevation (NSTEMI) myocardial infarction; N39.0 Urinary tract infection, site not specified; E87.1 Hypo-osmolality and hyponatremia; E87.2 Acidosis; T39.1X1A Poisoning by 4-Aminophenol derivatives, accidental (unintentional), initial encounter; R65.20 Severe sepsis without septic shock; I46.8 Cardiac arrest due to other underlying condition; E87.6 Hypokalemia; T43.215A Adverse effect of selective serotonin and norepinephrine reuptake inhibitors, initial encounter; E03.9 Hypothyroidism, unspecified; R77.8 Other specified abnormalities of plasma proteins; E11.8 Type 2 diabetes mellitus with unspecified complications; K21.9 Gastro-esophageal reflux disease without esophagitis; I10 Essential (primary) hypertension; F31.9 Bipolar disorder, unspecified; E11.40 Type 2 diabetes mellitus with diabetic neuropathy, unspecified; F17.200 Nicotine dependence, unspecified, uncomplicated; E11.65 Type 2 diabetes mellitus with hyperglycemia; T50.915A Adverse effect of multiple unspecified drugs, medicaments and biological substances, initial encounter; E66.9 Obesity, unspecified; Z79.899 Other long term (current) drug therapy; Z79.891 Long term (current) use of opiate analgesic; Z79.01 Long term (current) use of anticoagulants; Z90.710 Acquired absence of both cervix and uterus; Z79.4 Long term (current) use of insulin; Y92.89 Other specified places as the place of occurrence of the external cause; Z90.49 Acquired absence of other specified parts of digestive tract; Z98.51 Tubal ligation status
CPT/HCPCS: 36415; 36600; 70450; 71045; 72125; 74018; 80048; 80053; 80061; 80202; 80307; 80320; 81001; 82140; 82550; 82553; 82728; 82803; 82805; 82962; 83615; 83735; 84100; 84132; 84145; 84439; 84443; 84484; 85014; 85018; 85025; 85027; 85049; 85379; 85520; 85610; 85730; 86140; 87040; 87070; 87076; 87086; 87186; 87205; 93005; 93306; 93970; 94002; 94003; 94640; 94760; 99291; G0378; G0480; J0132; J0330; J0456; J0610; J0692; J0696; J1100; J1644; J1650; J1815; J1940; J2270; J2704; J3010; J3370; J3480; J7030; J7040; J7050; J7060; J7070; U0003